=== PATIENT | female | born 2000 | race Caucasian/White ===

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

== ENCOUNTER 2021-12-16 12:15 | Emergency (ER) | payer OTHER, BC, SELFPAY ==
[2021-12-16 12:15] VITALS: BP 120/89; PULSE 139; RESP 16; TEMP 36.8; O2SAT 97; BMI 26.5
--- NOTE | 2021-12-16 12:29 | CT_ITS ---
STUDY: CT ABDOMEN AND PELVIS WITH CONTRAST REASON FOR EXAM: Female, 21 years old. Abdominal pain and diarrhea x 5 days. History of ulcerative colitis RADIATION DOSAGE (If Supplied By Facility): CTDIvol = ( 16.19 ) mGy, DLP = ( 642.62 ) mGycm TECHNIQUE: Transaxial images were obtained from the dome of the diaphragm to the symphysis pubis without oral contrast. IV 100mL Isovue-370 was administered. Sagittal and coronal images were reconstructed. Individualized dose optimization techniques were used for this CT. COMPARISON: None. FINDINGS: The visualized lung bases are unremarkable. The visualized portions of the heart are within normal limits. Normal liver. Normal gallbladder and extrahepatic biliary system. Normal spleen. Normal pancreas. Normal bilateral adrenal glands. There is a suggestion of punctate stone right kidney without hydronephrosis. Image #48 axial views. Normal left kidney. Normal visualized stomach. There are distended loops of proximal small bowel. There is a fluid distended thick-walled appearance of the transverse colon, image 54 with air-fluid levels thickening of the distal transverse colon in a decompressed edematous appearance of the descending colon with a featureless strandy appearance. There are few nonspecific pelvic subcentimeter lymph nodes near the rectum. The appendix is visualized and appears normal. Normal abdominal aorta. Normal inferior vena cava. There few nonspecific subcentimeter reactive lymph nodes. Normal urinary bladder. Normal visualized uterus. Normal abdominal wall. There is a broad disc bulge L4-L5 with minimal neural foramina narrowing. CT/Abdomen/Pelvis W IV Cont ONLY IMPRESSION: Findings are highly suspicious for active colitis, ulcerative colitis, involving the transverse colon in particular with a decompressed ratty, , edematous appearance of the descending colon and rectum. The patient likely has diarrhea. There is mild distention of the proximal small bowel suggesting probable associated mild ileus. There is no visualized abscess formation. Electronically Signed: Sabrina Quintero MD at 14:36 EDT ,
--- NOTE | 2021-12-16 12:29 | RAD_ITS ---
STUDY: X-RAY CHEST REASON FOR EXAM: Female, 21 years old. Shortness of breath TECHNIQUE: Single AP portable view of the chest. COMPARISON: April 10, 2019 chest x-ray FINDINGS: The lungs are clear and expanded. There is no demonstrated pleural abnormality. Normal size heart. Normal mediastinum and jamila. Normal visualized pulmonary arteries. Normal visualized aortic arch and descending thoracic aorta. Normal visualized thoracic spine. Normal visualized ribs, clavicles, and shoulders. There is no demonstrated abnormality of the visualized soft tissue structures of the upper abdomen. RAD/Chest 1 View (Portable) IMPRESSION: Normal x-ray examination of the chest. Electronically Signed: Sabrina Quintero MD at 13:43 EDT ,
--- NOTE | 2021-12-16 12:31 | EDS_ITS ---
HPI <JESUS Lanier - Last Filed: 12/16/21 14:55> History of Present Illness Chief Complaint: Abd Pain Narrative Narrative: 21-year-old female with history of ulcerative colitis on Humira presents to the emergency department with 6 days of generalized abdominal bloating, abdominal pain. She states that over the last 2 to 3 days she has been having multiple loose stools, close to 1 time per hour. Patient states there is no blood in the stool however blood when she wipes. Patient has not had a CAT scan since 2019. She does follow-up with a rn urology. She also states over the last 48 hours she is feeling more short of breath. Patient states that when she is standing, she feels like she cannot get a big breath. She denies any chest pain, denies any fevers or chills. Denies any cough. Denies any sick contacts. [facility] <JESUS Lanier - Last Filed: 12/16/21 14:55> [facility] Medical History (Updated 12/16/21 @ 14:53 by JESUS Lanier) Ulcerative colitis Home Medications adalimumab 40 mg/0.4 mL subcutaneous pen kit (Humira(CF) Pen) See Rx Instructions .Route .COMPLEX 12/16/21 [History Last Taken Unknown] ergocalciferol (vitamin D2) 1,250 mcg (50,000 unit) capsule 50,000 unit PO QWEEK 12/16/21 [History Last Taken Unknown] ferrous sulfate 325 mg (65 mg iron) tablet 325 mg PO X1 12/16/21 [History Last Taken Unknown] prednisone 50 mg tablet 50 mg PO DAILY #6 tabs 12/16/21 [Rx Last Taken Unknown] Allergy/AdvReac Type Severity Reaction Status Date / Time No Known Allergies Allergy Verified 12/16/21 12:18 Social History Smoking Status: Never smoker ROS <JESUS Lanier - Last Filed: 12/16/21 14:55> ROS ED ROS Narrative Constitutional: Negative for fever, chills, weight loss, weakness Eyes: Negative for vision loss, vision change, double vision ENT: Negative for any sore throat, ear pain, congestion Cardiovascular: Negative for any chest pain, tightness, palpitations Respiratory: Negative for any cough, sputum production, hemoptysis, dyspnea, dyspnea on exertion, orthopnea Gastrointestinal: Negative for any nausea, vomiting, constipation, blood in stool, blood in vomit. Patient complains of abdominal bloating, diarrhea : Negative for any urinary frequency, dysuria, retention, blood in urine Muscle skeletal: Negative for any muscle joint pain, stiffness, myalgias, arthralgias, neck pain, back pain Neurological: Negative for any headache, syncope, numbness or tingling, dizziness Skin: Negative for any rashes, lumps, itching, abrasions, lacerations Psychiatric: Negative for any depression, anxiety, stress, suicidal ideation, homicidal ideation Hematologic: Negative for any easy bruising, excessive bruising, easy bleeding Allergies: Negative for any eczema, hives, rash EXAM <JESUS Lanier - Last Filed: 12/16/21 14:55> Physical Exam Narrative Exam Narrative: Vital signs reviewed. HEET: Head normocephalic atraumatic, TMs clear bilaterally. Posterior pharynx is clear, moist mucous membranes. Nares clear bilaterally. Neck: Supple with no lymphadenopathy or tenderness. No signs of meningismus, negative jolt sign. Cardiac: Tachycardic rate no murmurs gallops or rubs, equal peripheral pulses bilaterally. Respiratory: Lungs clear to auscultation bilaterally. No chest tenderness. Abdomen: Soft, nondistended. No abdominal bruit or pulsatile masses. No hepatosplenomegaly. Patient has generalized tenderness, no specific area was worse. Patient states have bloating to her lower abdomen. Active bowel sounds in all quadrants. Extremities: No peripheral edema, no signs of gross trauma or deformity. Active full range of motion of all extremities. Neuro: Cranial nerves II through XII intact, no focal neurological deficits. Skin: Clean dry and intact with no rash, purpura, petechiae, vesicles or pustules. Backs/flank: No CVA tenderness, no midline spinal tenderness, no deformity. Psych: Normal mood and affect. No SI, HI or acute psychosis. Const Vital Signs: 12/16/21 12:15 12/16/21 12:24 12/16/21 14:39 Temperature 98.2 F Temperature Source Temporal Pulse Rate 139 H 83 Respiratory Rate 16 Respiratory Effort Normal Non-Labored Respiratory Depth Normal Respiratory Pattern Normal Blood Pressure 120/89 H 102/70 Blood Pressure Mean 99 80 Pulse Ox 97 96 Oxygen Delivery Method Room Air Room Air Positive well nourished and well developed General Appearance ED: well developed <Dr. Genna Acevedo MD - Last Filed: 12/16/21 14:59> Physical Exam Const Vital Signs: 12/16/21 12:15 12/16/21 12:24 12/16/21 14:39 Temperature 98.2 F Temperature Source Temporal Pulse Rate 139 H 83 Respiratory Rate 16 Respiratory Effort Normal Non-Labored Respiratory Depth Normal Respiratory Pattern Normal Blood Pressure 120/89 H 102/70 Blood Pressure Mean 99 80 Pulse Ox 97 96 Oxygen Delivery Method Room Air Room Air MDM <JESUS Lanier - Last Filed: 12/16/21 14:55> MDM Lab Data Labs: Laboratory Results - last 24 hr 12/16/21 12/16/21 12/16/21 12:35 12:35 13:40 WBC 14.2 H RBC 4.48 Hgb 13.2 Hct 39.3 MCV 87.7 MCH 29.5 MCHC 33.6 RDW Std Deviation 39.0 RDW Coeff of Neville 12.0 Plt Count 350 MPV 9.4 Immature Gran % (Auto) 0.500 Neut % (Auto) 79.7 H Lymph % (Auto) 12.1 L [place] % (Auto) 6.5 Eos % (Auto) 0.7 Baso % (Auto) 0.5 Absolute Neuts (auto) 11.3 H Absolute Lymphs (auto) 1.71 Nucleated RBC % 0 Sodium 138 Potassium 3.2 L Chloride 102 Carbon Dioxide 29.0 Anion Gap 7 BUN 5 L Creatinine 0.65 Estim Creat Clear Calc 109.19 Est GFR (MDRD) Af Amer 149 Est GFR (MDRD) Non-Af 123 BUN/Creatinine Ratio 7.7 L Glucose 110 H Calcium 9.0 Total Bilirubin 0.40 AST 11 L ALT 11 L Alkaline Phosphatase 141 H Total Protein 7.9 Albumin 3.3 Globulin 4.6 H Albumin/Globulin Ratio 0.7 L Lipase 32 L Urine Color Yellow Urine Clarity Clear Urine pH 7.0 Ur Specific [place] 1.005 Urine Protein Negative Urine Glucose (UA) Normal Urine Ketones Negative Urine Occult Blood Negative Urine Nitrite Negative Urine Bilirubin Negative Urine Urobilinogen Normal Ur Leukocyte Esterase Negative Urine RBC 0 SEEN Urine WBC 0 SEEN Ur Squamous Epith Cells 0 SEEN Urine Bacteria 0 SEEN Urine Mucus 0 SEEN Urine Test Negative Radiography Diagnostic Testing: Clinical Impression(s) from Imaging Studies Abdomen/Pelvis CT 12/16/21 12:29 IMPRESSION: Findings are highly suspicious for active colitis, ulcerative colitis, involving the transverse colon in particular with a decompressed ratty, , edematous appearance of the descending colon and rectum. The patient likely has diarrhea. There is mild distention of the proximal small bowel suggesting probable associated mild ileus. There is no visualized abscess formation. Electronically Signed: Sabrina Quintero MD at 14:36 EDT , Chest X-Ray 12/16/21 12:29 IMPRESSION: Normal x-ray examination of the chest. Electronically Signed: Sabrina Quintero MD at 13:43 EDT , Treatment and Re-Evaluation Narrative: Patient appears well, patient appears nontoxic, vital signs are stable. Patient presents to the emergency department with 6 days of generalized abdominal bloating, diarrhea. Patient does have history of ulcerative colitis, patient was given a full abdominal work-up, she did have a complaint of being intermittently short of breath, chest x-ray was also completed. Patient's laboratory studies show a leukocytosis white blood count of 14.2, patient's chemistries show slight hypokalemia sodium of 3.2. Kidney function within normal limits. Patient's COVID-19, influenza rapid test were negative. Patient's urinalysis was negative for infection patient is not . Patient did receive a chest x-ray concerning for the shortness of breath rule out any pneumonia. Patient's chest x-ray interpreted by ER physician shows normal examination of the chest. Patient did receive a CT scan of the abdomen and pelvis rule out any obstruction, abscess, inflammatory disease. Patient's x-ray shows of the findings are highly suspicious for active colitis/ulcerative colitis involving the transverse colon particular with a decompressed ratty edematous appearance of the descending colon and rectum. The patient likely has diarrhea. There is mild distention of the proximal small bowel suggesting probable associated mild ileus. There is no visualized abscess formation. I did speak with the patient, patient will be given Solu-Medrol IV here, she was placed on 6 days of 50 mg prednisone. She will follow-up closely with her UC doctor. Patient is happy with the plan of care. Patient does not look nontoxic. She does not look dehydrated. Patient will follow outpatient. Patient struck to return for any worsening symptoms. Patient stable for discharge. <Dr. Genna Acevedo MD - Last Filed: 12/16/21 14:59> [facility] MDM Narrative Medical decision making narrative: I have personally performed a face to face assessment of the patient and have reviewed the ALEXEI Note. I performed a substantive portion of the visit including all aspects of the following. My monzon findings include: History is 21-year-old female with history of ulcerative colitis presenting with mild diffuse abdominal pain and diarrhea. Denies blood in her stool. Denies vomiting. Denies fever. Exam vitals are stable. Initially tachycardic. This improved with IV fluids. Lungs are clear and equal. Abdomen is soft with very mild diffuse tenderness, no rebound or guarding. Medical Decision Making: Patient was given IV fluids, labs obtained. CT abdomen pelvis obtained. patient is feeling improved on reevaluation. She will follow- up with her GI physician. Advised return to the ED for worsening complaints. Other additions or changes: None Lab Data Attestation: I reviewed the patient's lab results. Labs: Laboratory Results - last 24 hr 12/16/21 12/16/21 12/16/21 12:35 12:35 13:40 WBC 14.2 H RBC 4.48 Hgb 13.2 Hct 39.3 MCV 87.7 MCH 29.5 MCHC 33.6 RDW Std Deviation 39.0 RDW Coeff of [place]ille 12.0 Plt Count 350 MPV 9.4 Immature Gran % (Auto) 0.500 Neut % (Auto) 79.7 H Lymph % (Auto) 12.1 L [place] % (Auto) 6.5 Eos % (Auto) 0.7 Baso % (Auto) 0.5 Absolute Neuts (auto) 11.3 H Absolute Lymphs (auto) 1.71 Nucleated RBC % 0 Sodium 138 Potassium 3.2 L Chloride 102 Carbon Dioxide 29.0 Anion Gap 7 BUN 5 L Creatinine 0.65 Estim Creat Clear Calc 109.19 Est GFR (MDRD) Af Amer 149 Est GFR (MDRD) Non-Af 123 BUN/Creatinine Ratio 7.7 L Glucose 110 H Calcium 9.0 Total Bilirubin 0.40 AST 11 L ALT 11 L Alkaline Phosphatase 141 H Total Protein 7.9 Albumin 3.3 Globulin 4.6 H Albumin/Globulin Ratio 0.7 L Lipase 32 L Urine Color Yellow Urine Clarity Clear Urine pH 7.0 Ur Specific [place] 1.005 Urine Protein Negative Urine Glucose (UA) Normal Urine Ketones Negative Urine Occult Blood Negative Urine Nitrite Negative Urine Bilirubin Negative Urine Urobilinogen Normal Ur Leukocyte Esterase Negative Urine RBC 0 SEEN Urine WBC 0 SEEN Ur Squamous Epith Cells 0 SEEN Urine Bacteria 0 SEEN Urine Mucus 0 SEEN Urine Test Negative Radiography Chest X-Ray - ED: 1 View, Read by ED Physician, Read by Radiologist and No Acute Disease Diagnostic Testing: Clinical Impression(s) from Imaging Studies Abdomen/Pelvis CT 12/16/21 12:29 IMPRESSION: Findings are highly suspicious for active colitis, ulcerative colitis, involving the transverse colon in particular with a decompressed ratty, , edematous appearance of the descending colon and rectum. The patient likely has diarrhea. There is mild distention of the proximal small bowel suggesting probable associated mild ileus. There is no visualized abscess formation. Electronically Signed: Sabrina Quintero MD at 14:36 EDT , Chest X-Ray 12/16/21 12:29 IMPRESSION: Normal x-ray examination of the chest. Electronically Signed: Sabrina Quintero MD at 13:43 EDT , Discharge Plan Triage Chief Complaint: Abd Pain ED Midlevel Provider: Syed Mendez ED Provider: Genna Acevedo Dx/Rx/DC Orders Clinical Impression: Ulcerative colitis, Diarrhea, Dyspnea Instructions: Treating Diarrhea, ED Ulcerative Colitis Prescriptions: New prednisone 50 mg tablet 50 mg PO DAILY Qty: 6 0RF No Action ferrous sulfate 325 mg (65 mg iron) tablet 325 mg PO X1 Label Comments: TAKE 1 TABLET BY MOUTH EVERY DAY WITH BREAKFAST Rx Instructions: PT STATES SHE TAKES IT WHENEVER SHE FEELS LIGHTHEADED-USUALLY <1X/WEEK ergocalciferol (vitamin D2) 1,250 mcg (50,000 unit) capsule 50,000 unit PO QWEEK Label Comments: TAKE 1 CAPSULE BY MOUTH ONE TIME A WEEK. Humira(CF) Pen 40 mg/0.4 mL pen injector kit See Rx Instructions .ROUTE .COMPLEX Rx Instructions: 40 mg subcutaneously QOWEEK ON FRIDAYS Primary Care Provider: Jodie Johnson Referrals: Hugo Berrios DO [Non-Staff] - Activity Restrictions/Additional Instructions: Please ensure you follow-up with your doctor this upcoming week. Disposition Disposition: Home, Self Care
[2021-12-16] MEDS: 0.9% Normal Saline 1,000 ML 1000 ML IV (12:40)
[2021-12-16] MEDS: Ondansetron 4 MG/2 ML Vial IV (12:40)
[2021-12-16] MEDS: Morphine 4 MG/ML Syringe IV (12:40)
[2021-12-16 12:41] LABS: Absolute Lymphocyte Count 1.71 X10^3/uL (0.83-4.51); Absolute Neutrophil Count 11.3 X10^3/uL (2.0-7.7); Basophil# 0.07 X10^3/uL; Basophil% 0.5 % (0-1); Eosinophils% 0.7 % (0-5); Hematocrit 39.3 % (37-47); Hemoglobin 13.2 g/dL (12.0-15.0); Lymphocyte # 1.71 X10^3/ul (0.83-4.51); Lymphocyte % 12.1 % (19-41); Mean Corp Hgb Conc 33.6 g/dL (32-36); Mean Corpuscular Hgb 29.5 pg (27.0-32.0); Mean Corpuscular Volume 87.7 fL (81-99); Mean Platelet Vol. 9.4 fl (6.2-12.0); Monocyte# 0.92 X10^3/uL; Monocyte% 6.5 % (0-10); NRBC Flagged by Analyzer 0 % (0-5); Neutrophil # 11.31 X10^3/uL (2.7-7.7); Neutrophil % 79.7 % (47-70); Platelet Count 350 K/mm3 (150-450); Red Blood Count 4.48 M/mm3 (4.2-5.4); White Blood Count 14.2 K/mm3 (4.4-11.0)
[2021-12-16 12:58] LABS: ALB/GLOB Ratio 0.7 RATIO (0.9-2.4); AST(SGOT) 11 U/L (15-37); Alanine Aminotransfer ALT/SGPT 11 U/L (13-56); Albumin, Serum 3.3 g/dL (3.2-5.0); Alkaline Phosphatase 141 U/L (45-117); Anion Gap 7 (5-15); BUN 5 mg/dL (7-18); BUN/Creat Ratio 7.7 RATIO (10-20); Chloride 102 mmol/L (98-107); Creatinine, Serum 0.65 mg/dL (0.55-1.02); EST Glomerular Filtration Rate 123 mL/min (>60); Est Glom Filt Rate - Afr Amer 149 mL/min (>60); Estimated Creatinine Clearance 109.19 ml/min; Globulin 4.6 g/dL (2.2-4.2); Glucose 110 mg/dL (74-106); Lipase 32 U/L (73-393); Potassium 3.2 mmol/L (3.5-5.1); Protein, Total 7.9 g/dL (6.4-8.2); Sodium Level 138 mmol/L (136-145)
[2021-12-16 13:47] LABS: Bacteria 0 SEEN /hpf (None Seen); Mucous, Urine 0 SEEN /hpf (<or=2+); Red Blood Cells-Urine 0 SEEN /hpf (0-5); Squamous Epithelial Cells - UA 0 SEEN /hpf (5-10); White Blood Cells 0 SEEN /hpf (0-5)
[2021-12-16 13:49] LABS: Color, Urine Yellow (Yellow); Glucose, Dipstick Normal (Normal); Ketone-Dipstick Negative (Negative); Leukocyte Esterase-Dipstick Negative /ul (Negative); Nitrite-Dipstick Negative (Negative); Occult Blood-Urine Negative /ul (Negative); Protein-Dipstick Negative (Negative); Specific Gravity, Urine 1.005 (1.002-1.030); Urine Bilirubin Dipstick Negative (Negative); Urine Clarity Clear (Clear); Urine Urobilinogen Normal (Normal)
[2021-12-16 13:55] LABS: Internal QC Validated? YES +Cl - CLEAR BKGD; Pregnancy, Urine Negative Negative
[2021-12-16 14:39] VITALS: BP 102/70; PULSE 83; O2SAT 96
[2021-12-16] MEDS: MethylPREDNISolone 125 MG/2 ML Vial IV (14:49)
== END 2021-12-16 14:58 | disposition home or self-care (01) ==
PROVIDERS: Nurse Practitioner; Emergency Provider Emergency Medicine; PCP Internal Medicine; Visit Provider Emergency Medicine
DX: K51.90 Ulcerative colitis, unspecified, without complications (principal); R06.02 Shortness of breath
CPT/HCPCS: 71045; 74177; 80053; 81001; 81025; 83690; 85025; 87428; 96361; 96374; 96375; 99284; J7030; Q9967; A4216; J2405

== ENCOUNTER 2022-10-14 11:04 | Emergency (ER) | payer BC, MEDICAID, SELFPAY ==
[2022-10-14 11:05] VITALS: BP 122/80; PULSE 124; RESP 18; TEMP 36.4; O2SAT 100; BMI 25.2
--- NOTE | 2022-10-14 11:12 | EKG12_ITS ---
Test Reason : Blood Pressure : / mmHG Vent. Rate : 119 BPM Atrial Rate : 119 BPM P-R Int : 096 ms QRS Dur : 080 ms QT Int : 320 ms P-R-T Axes : 085 063 -48 degrees QTc Int : 450 ms Sinus tachycardia with short IL ST & T wave abnormality, consider inferior ischemia Abnormal ECG Confirmed by MARICARMEN BANGURA, CURTIS ([id number]), film editor JOSE L MUNOZ ([id number]) on 10/15/2022 9:39:48 AM Referred By: TRI Confirmed By:CURTIS HERNADEZ MD
--- NOTE | 2022-10-14 11:12 | RAD_ITS ---
STUDY: X-RAY CHEST REASON FOR EXAM: Female, 22 years old. Midsternal chest tightness, 17 weeks gestation . The patient was shielded appropriately. TECHNIQUE: PA and lateral views of the chest. COMPARISON: Comparison is made with prior study dated December 16, 2021. FINDINGS: The lungs are clear and expanded. There is no demonstrated pleural abnormality. Normal size heart. Normal mediastinum and jamila. Normal visualized pulmonary arteries. Normal visualized aortic arch and descending thoracic aorta. There is a mild dextroscoliosis of the thoracic spine. Normal visualized ribs, clavicles, and shoulders. There is no demonstrated abnormality of the visualized soft tissue structures of the upper abdomen. RAD/Chest PA and Lateral IMPRESSION: Normal x-ray examination of the chest. Electronically Signed: Gustabo Gray MD at 11:59 EDT ,
--- NOTE | 2022-10-14 11:14 | ED.VIS.CHEST ---
HPI History of Present Illness Chief Complaint: Chest Pain Detail of Chief Complaint: Midsternal chest tightness that started Friday Informant: patient Onset/Context/Timing Onset: Days (Friday, October 12) Activity at onset: sudden Timing: Continuous Quality: Positive for Tightness Location: Substernal Current Severity: Mild Maximum Severity: Moderate Worsened By: - (Walking); Not Worsened By Movement of Arm, Movement of Torso, Palpation, Breathing or Coughing Relieved By: Nothing Associated Symptoms: Positive for Dyspnea, Cough (Started today) and Palpitations; Negative for Nausea, Vomiting, Diaphoresis, Fever, Lightheadedness or Acid Reflux Narrative Narrative: Patient is a 22-year-old female who is 17 weeks gestation and presents with midsternal chest tightness without radiation. She does report mild shortness of breath. She states her pain resolves when she is supine. If she is up and about the pain is present. She denies history of PE or DVT. She denies leg pain, swelling or discoloration. There is a family history of PE, maternal grandfather. She denies fever, chills night sweats. She denies rhinorrhea, congestion postnasal drainage. She does endorse sore throat and cough which started today. She denies abdominal pain. She denies GI symptoms. She denies urologic symptoms other than frequency. Prior Similar Symptoms: Yes (Pleurisy) CVD Risk Factors: Negative for Hypertension, Diabetes, Hypercholesterolemia, Family History 1' </=55 or Smoking PE Risk Factors: Negative for Recent Travel/Surgery, Recent Immobilization, Prior DVT or PE, Cancer or OCP + Smoking + >/=35 TAD Risk Factors: Negative for Marfan's Syndrome, Hypertension or Family History [facility] Medical History Ulcerative colitis Home Medications ergocalciferol (vitamin D2) 1,250 mcg (50,000 unit) capsule 50,000 unit PO QWEEK 12/16/21 [History Last Taken Unknown] ferrous sulfate 325 mg (65 mg iron) tablet 325 mg PO X1 12/16/21 [History Last Taken Unknown] Allergy/AdvReac Type Severity Reaction Status Date / Time No Known Allergies Allergy Verified 10/14/22 11:07 Social History (Updated 10/14/22 @ 11:[address] Rafael Hudson MD) Smoking Status: Never smoker substance use type: does not use ROS ROS ED Constitutional Constitutional ED: Denies chills, fever(s), subjective, sweats or weight loss Eyes Eyes: Reports none; Denies blurry vision or change in vision ENT ENT ED: Reports sore throat; Denies ear pain or rhinorrhea Cardiovascular Cardiovascular: Reports as per HPI; Denies orthopnea or paroxysmal nocturnal dyspnea Respiratory/Chest Respiratory/Chest: Reports cough; Denies dyspnea, dyspnea on exertion, orthopnea, paroxysmal nocturnal dyspnea or sputum Gastrointestinal Gastrointestinal: Denies abdominal pain, melena, nausea or vomiting Genitourinary Genitourinary ED: Reports urinary frequency; Denies dysuria or hematuria Musculoskeletal Musculoskeletal: Denies arthralgias, back pain, myalgias or neck pain Integumentary Denies abscess, Abrasions or rash Neurologic Neurologic: Denies headache(s), paresthesias or weakness Hematologic/Lymphatic Hematologic/Lymphatic: Denies easy bleeding or easy bruising EXAM Physical Exam Const Vital Signs: 10/14/22 11:05 10/14/22 11:25 10/14/22 11:25 Temperature 97.6 F L Temperature Source Temporal Pulse Rate 124 H 107 H Respiratory Rate 18 Respiratory Effort Normal Non-Labored Blood Pressure 122/80 H Blood Pressure Mean 94 Pulse Ox 100 Oxygen Delivery Method Room Air 10/14/22 14:11 Temperature 99.4 F H Temperature Source Oral Pulse Rate Respiratory Rate Respiratory Effort Blood Pressure Blood Pressure Mean Pulse Ox Oxygen Delivery Method Positive well nourished and well developed General Appearance ED: well developed and NAD; Negative for pallor HEENT Reports TM's clear and moist mucous membranes normocephalic Tympanic Membrane ED: Yes TM's clear Eyes PERRL and EOMs intact bilaterally General Eye ED: Negative for pale conjunctiva or scleral icterus Neck no lymphadenopathy, supple and no JVD Neck Narrative: Trachea is midline. There is no inspiratory stridor. Resp normal respiratory effort and clear to auscultation bilaterally Cardio regular rhythm, S1 normal heart sound, S2 normal heart sound and no murmurs Rate: tachycardic Peripheral Pulses: pulses 2+ throughout GI normal to inspection, nondistended, normoactive bowel sounds, soft to palpation, non-tender and non-distended; Negative for hepatosplenomegaly GI Narrative: Fundal height is 3 fingerbreadths below the umbilicus. Back/Spine no CVA tenderness and no thoracic nor lumbar tenderness Extremity normal to inspection Extremity Narrative: There is no asymmetry, swelling, discoloration, leg vein distention, palpable cords or tenderness along the distribution of the deep venous system. Neuro oriented x3, CN's II-XII intact bilaterally, no sensory deficits noted and gait normal Sensorium / Orientation: awake and alert Motor Exam: strength 5/5 throughout Psych mental status grossly normal Skin no rashes or lesions noted and no wounds General Skin Exam: Negative for jaundice or pallor MDM MDM MDM Narrative Medical decision making narrative: Patient is not PERC negative. Since patient is not PERC negative will obtain D-dimer. EKG was obtained since patient has a rapid regular heart rate to assess for dysrhythmia. With patient now complaint of sore throat and cough this may represent respiratory infection as well. Also need to consider myocarditis, pericarditis. Patient's work-up included EKG to assess rhythm, chest x-ray and appropriate blood work. Lab Data Attestation: I reviewed the patient's lab results. Lab results narrative: CBC is unremarkable. And within normal limits for a woman who is second trimester . Troponin is less than 3. This is with days of symptoms. Basic metabolic panel is marked for potassium 3.2 otherwise unremarkable. Labs: Laboratory Results - last 24 hr 10/14/22 11:25 WBC 8.9 RBC 3.82 L Hgb 12.0 Hct 34.6 L MCV 90.6 MCH 31.4 MCHC 34.7 RDW Std Deviation 43.2 RDW Coeff of Neville 13.2 Plt Count 283 MPV 9.1 Immature Gran % (Auto) 0.400 Neut % (Auto) 83.4 H Lymph % (Auto) 10.3 L Beckham % (Auto) 5.6 Eos % (Auto) 0.1 Baso % (Auto) 0.2 Absolute Neuts (auto) 7.4 Absolute Lymphs (auto) 0.92 Nucleated RBC % 0 D-Dimer Quant (PE/DVT) 1.02 H* Sodium 136 Potassium 3.2 L Chloride 105 Carbon Dioxide 25.0 Anion Gap 6 BUN 2 L Creatinine 0.44 L Estim Creat Clear Calc 159.96 Est GFR (MDRD) Af Amer 233 Est GFR (MDRD) Non-Af 192 BUN/Creatinine Ratio 4.6 L Glucose 109 H Calcium 8.9 Troponin I High Sens < 3 L D-dimer is elevated. With elevated D-dimer, tachycardia, dyspnea and normal chest x-ray will obtain CTA to assess for pulmonary embolus. Radiography Chest X-Ray - ED: 2 View and Read by ED Physician (2 view chest x-ray supine reviewed interpreted by me at 1144 is negative. Cardiac silhouette and size normal. Perihilar region normal. Lung parenchyma normal. Osseous structures are unremarkable.) Diagnostic Testing: Clinical Impression(s) from Imaging Studies Chest X-Ray 10/14/22 11:12 IMPRESSION: Normal x-ray examination of the chest. Electronically Signed: Gustabo Gray MD at 11:59 EDT , Chest CTA 10/14/22 11:51 IMPRESSION: Normal CTA chest examination, without a demonstrated pulmonary embolism or arterial dissection. Electronically Signed: Gustabo Gray MD at 12:37 EDT , Echocardiogram 10/14/22 14:07 Interpretation Summary Normal LV size. Left ventricular systolic function is normal. The estimated ejection fraction is 55 %. Structurally normal valves. Ordering Physician: Rafael Hudson Referring Physician: BRITNEY KAY Performed By: Gaye Gurrola RCS Rhythm Strip Rhythm Strip: Sinus Tach Rate: 120 Ectopy: None EKG Initial EKG: Attestation: I personally reviewed and interpreted this EKG as follows: Interpretation: Sinus Tachycardia (Rate is 119. VA interval is 96 ms. QRS duration 80 ms. QT durations 120 ms. [place] is normal. There are ST-T wave abnormalities noted in the inferior leads. Per review of old record patient had a normal EKG June 2019. [place] was asked to obtain old EKG.) Management Discussion w/another healthcare provider: Conduit Bender (Discussed case with Dr. Perera. Recommendation is echo in the emergency department. This was ordered.) Discharge Plan Triage Chief Complaint: Chest Pain ED Provider: Rafael Hudson Dx/Rx/DC Orders Clinical Impression: Acute dyspnea, Sinus tachycardia, Chest pain Instructions: ED About Arrhythmias, ED Chest Pain, Uncertain Cause, ED Dyspnea Prescriptions: No Action ferrous sulfate 325 mg (65 mg iron) tablet 325 mg PO X1 Patient Comments: TAKE 1 TABLET BY MOUTH EVERY DAY WITH BREAKFAST Rx Instructions: PT STATES SHE TAKES IT WHENEVER SHE FEELS LIGHTHEADED-USUALLY <1X/WEEK ergocalciferol (vitamin D2) 1,250 mcg (50,000 unit) capsule 50,000 unit PO QWEEK Patient Comments: TAKE 1 CAPSULE BY MOUTH ONE TIME A WEEK. Primary Care Provider: Britney Kay Referrals: Britney Kay MD [Primary Care Provider] - Donavon Odell MD [Med Staff - Active Staff] - 5-7 Days Disposition Disposition: Home, Self Care
[2022-10-14 11:25] VITALS: PULSE 107
[2022-10-14 11:28] LABS: Absolute Lymphocyte Count 0.92 X10^3/uL (0.83-4.51); Absolute Neutrophil Count 7.4 X10^3/uL (2.0-7.7); Basophil# 0.02 X10^3/uL; Basophil% 0.2 % (0-1); Eosinophil# 0.01 X10^3/uL; Eosinophils% 0.1 % (0-5); Hematocrit 34.6 % (37-47); Lymphocyte # 0.92 X10^3/ul (0.83-4.51); Lymphocyte % 10.3 % (19-41); Mean Corp Hgb Conc 34.7 g/dL (32-36); Mean Corpuscular Hgb 31.4 pg (27.0-32.0); Mean Corpuscular Volume 90.6 fL (81-99); Mean Platelet Vol. 9.1 fl (6.2-12.0); Monocyte% 5.6 % (0-10); NRBC Flagged by Analyzer 0 % (0-5); Neutrophil % 83.4 % (47-70); Platelet Count 283 K/mm3 (150-450); RBC Distribution Width CV 13.2 % (11.6-14.6); RBC Distribution Width SD 43.2 fl (35.1-43.9); Red Blood Count 3.82 M/mm3 (4.2-5.4); White Blood Count 8.9 K/mm3 (4.4-11.0)
[2022-10-14 11:46] LABS: D-Dimer Quantitative (DVT/PE) 1.02 FEU/ug/m (0.27-0.49)
--- NOTE | 2022-10-14 11:51 | CT_ITS ---
STUDY: CTA CHEST REASON FOR EXAM: Female, 22 years old. Pain, dyspnea, sinus tach, elevated D-dimer -- Second trimester . The patient is shielded appropriately. RADIATION DOSAGE (If Supplied By Facility): CTDIvol = ( 9.63 ) mGy, DLP = ( 253.61 ) mGycm TECHNIQUE: The examination was performed with the intravenous administration of IV 100mL Isovue-370. Post-processing of the angiographic images was performed, with multiplanar reformation and 3D reconstruction. Individualized dose optimization techniques were used for this CT. COMPARISON: Comparison is made with prior chest radiograph done earlier in the day. FINDINGS: Normal enhancement of the main pulmonary artery and right and left pulmonary arteries. Normal enhancement of the bilateral peripheral pulmonary arteries. There is no demonstrated pulmonary embolism. Normal thoracic aorta and visualized great vessels. There is no demonstrated aortic dissection. Normal heart and pericardium. Normal mediastinum. Normal hilar regions. Normal visualized trachea and bronchi. The lungs are well expanded. Normal pulmonary parenchyma. Normal pleura. Normal chest wall structures. Normal osseous structures. Normal visualized upper abdomen. CT/CTA Chest W/WO Contrast IMPRESSION: Normal CTA chest examination, without a demonstrated pulmonary embolism or arterial dissection. Electronically Signed: Gustabo Gray MD at 12:37 EDT ,
[2022-10-14 12:01] LABS: Anion Gap 6 (5-15); BUN 2 mg/dL (7-18); BUN/Creat Ratio 4.6 RATIO (10-20); Calcium,Total 8.9 mg/dL (8.5-10.1); Chloride 105 mmol/L (98-107); Creatinine, Serum 0.44 mg/dL (0.55-1.02); EST Glomerular Filtration Rate 192 mL/min (>60); Est Glom Filt Rate - Afr Amer 233 mL/min (>60); Estimated Creatinine Clearance 159.96 ml/min; Glucose 109 mg/dL (74-106); Potassium 3.2 mmol/L (3.5-5.1); Sodium Level 136 mmol/L (136-145); Troponin-I HS < 3 pg/mL (3.0-54.0)
--- NOTE | 2022-10-14 14:07 | ECHOD_ITS ---
Reason For Study: DYSPNEA/SOB Procedure This was a 2D Doppler, Color Flow transthoracic echocardiogram. Exam performed portable in ED. Left Ventricle Normal LV size. Left ventricular systolic function is normal. The estimated ejection fraction is 55 %. No regional wall motion abnormalities noted. Right Ventricle Normal RV size. Normal systolic function. Atria Normal left atrium. Normal right atrium. Mitral Valve Normal mitral valve. Tricuspid Valve Normal tricuspid valve. Aortic Valve Normal aortic valve. Trisinus/trileaflet aortic valve. Pulmonic Valve Normal pulmonic valve. Great Vessels Normal aortic root. The pulmonary artery is normal size. Normal inferior vena cava. Pericardium/Pleural No pericardial effusion. MMode/2D Measurements & Calculations LVIDd: 5.3 cm IVSd: 0.69 cm Ao root diam: 2.1 cm LVIDs: 3.8 cm LVPWd: 0.51 cm FS: 28.5 % LAV(MOD-bp): 25.2 ml LVAd ap4: 27.6 cm2 SV(MOD-sp4): 55.7 ml LAV(MOD-bp) Indexed: 15.4 ml/m2 LVLd ap4: 7.3 cm LAV(MOD-sp2): 25.9 ml EDV(MOD-sp4): 87.4 ml LAV(MOD-sp4): 22.1 ml EDV(sp4-el): 88.3 ml LVAs ap4: 14.3 cm2 LVLs ap4: 5.7 cm ESV(MOD-sp4): 31.7 ml ESV(sp4-el): 30.3 ml EF(MOD-sp4): 63.8 % EF(sp4-el): 65.7 % SV(sp4-el): 58.0 ml LA A4 area: 11.9 cm2 RA A4 area: 9.8 cm2 TAPSE: 2.1 cm Doppler Measurements & Calculations MV E max stan: 70.5 cm/sec Lat Peak E' Stan: 19.2 cm/sec Med Peak E' Stan: 11.8 cm/sec E/E' lat: 3.7 E/E' med: 6.0 MV V2 max: 91.6 cm/sec Ao V2 max: 136.3 cm/sec LV V1 max: 117.7 cm/sec MV max P.4 mmHg Ao max P.4 mmHg LV V1 max P.5 mmHg MV V2 mean: 63.4 cm/sec Ao V2 mean: 91.1 cm/sec LV V1 mean P.7 mmHg MV mean P.8 mmHg Ao mean P.8 mmHg LV V1 mean: 75.5 cm/sec MV V2 VTI: 17.1 cm Ao V2 VTI: 21.5 cm LV V1 VTI: 19.0 cm AV (velocity ratio): 0.88 PA V2 max: 114.0 cm/sec PA V2 mean: 80.1 cm/sec ECHO/Echo Complete Interpretation Summary Normal LV size. Left ventricular systolic function is normal. The estimated ejection fraction is 55 %. Structurally normal valves. Ordering Physician: Rafael Hudson Referring Physician: BRITNEY KAY Performed By: Gaye Gurrola RCS
[2022-10-14 14:11] VITALS: TEMP 37.4
[2022-10-14 15:55] VITALS: BP 145/60; PULSE 56; RESP 20; O2SAT 99
== END 2022-10-14 16:00 | disposition home or self-care (01) ==
PROVIDERS: Emergency Provider Emergency Medicine; PCP Internal Medicine; Visit Provider Emergency Medicine
DX: O99.891 Other specified diseases and conditions complicating pregnancy (principal); R07.9 Chest pain, unspecified; R06.02 Shortness of breath; R00.0 Tachycardia, unspecified; Z3A.17 17 weeks gestation of pregnancy
CPT/HCPCS: 71046; 71275; 80048; 84484; 85025; 85379; 93005; 93306; 99283; Q9967; A4216

== ENCOUNTER 2023-02-24 16:15 | Outpatient (CLI) | payer BC, MEDICAID, SELFPAY ==
[2023-02-24 16:42] VITALS: BMI 30.6
[2023-02-24 16:45] VITALS: TEMP 37.1
[2023-02-24 16:47] VITALS: BP 128/59; PULSE 111; O2SAT 98
--- NOTE | 2023-02-24 17:18 | OB.TRI.NOTE ---
HPI - General General Date of Service: 02/24/23 HPI Narrative CARIN BARNES, is a 22 F @ 36+ weeks who presents c/o contractions. PFSH PFSH Medical History (Updated 02/24/23 @ 17:[address] Deneen Streeter MD) Anxiety and depression Iron deficiency anemia Palpitations Shortness of breath Tachycardia Ulcerative colitis Home Medications ferrous sulfate 325 mg (65 mg iron) tablet 325 mg PO DAILY 10/25/22 [History Last Taken Unknown] vit 122-ferrous fumarate 27 mg iron-folic acid 800 mcg tablet ( Multi) 1 tab PO DAILY 10/25/22 [History Last Taken Unknown] Allergy/AdvReac Type Severity Reaction Status Date / Time No Known Allergies Allergy Verified 02/24/23 16:42 Family History (Updated 10/25/22 @ 11:16 by Carol Ann Fountain) Mother Hypertension Gluten intolerance Father Hypertension Sister Heart murmur Grandmother Heart disease Diabetes Grandfather Hypertension Heart disease Cancer Grandmother Heart disease Hypertension Grandfather Myocardial infarction, Onset Age: 52 Surgical History (Updated 10/25/22 @ 14:53 by Carol Ann Fountain) History of colonoscopy History of esophagogastroduodenoscopy (EGD) Social History (Updated 10/25/22 @ 11:11 by Carol Ann Fountain) Smoking Status: Never smoker alcohol intake: never substance use type: does not use Physical Exam Narrative Per RN- 0.5cm/thick/-3 NST FHR Rate Baby A Baseline: 135 Variability:: Moderate Accelerations:: 15 x 15 Decelerations:: None NST Reactive:: Yes FHR Category:: Category I Uterine Activity:: irregular Assessment & Plan (1) False labor before 37 completed weeks of gestation: PLAN: Plan @ 36.6 weeks gestation- false labor dc home follow up as scheduled
== END 2023-02-24 17:30 | disposition home or self-care (01) ==
LOC: WPOUT 16:22 → WP 16:22
PROVIDERS: PCP Internal Medicine; Referring Provider Obstetrics & Gynecology; Visit Provider Obstetrics & Gynecology
DX: O47.03 False labor before 37 completed weeks of gestation, third trimester (principal); Z3A.36 36 weeks gestation of pregnancy
CPT/HCPCS: 59025; 59050; 99221; G0378

== ENCOUNTER 2023-03-18 04:45 | Inpatient (IN) | payer BC, MEDICAID, SELFPAY ==
[2023-03-18] VITALS (57 sets, daily range): BP systolic 88–135; BP diastolic 52–96; PULSE 68–122; RESP 16; TEMP 36.2–37.3; O2SAT 83–99; BMI 31.5
--- OUTSIDE RECORDS SUMMARY | 2023-03-18 02:42 | XMS RPT_ITS | CCD ---
Author Name Unknown Address [address] [place] [address] Organization [facility] Care Team Providers Care Managed Care Provider Name Role Phone Britney Kay MD Primary Care Provider [phone] MIC, WEIQUAN Referring Unavailable GANTA, BRITNEY Primary Care Unavailable MIC, WEIQUAN Attending Unavailable GANTA, BRITNEY Primary Care Unavailable MIC, WEIQUAN Referring Unavailable GANTA, BRITNEY Primary Care Unavailable MIC, WEIQUAN Referring Unavailable MIC, WEIQUAN Referring Unavailable GANTA, BRITNEY Primary Care Unavailable MIC, WEIQUAN Attending Unavailable GANTA, BRITNEY Primary Care Unavailable MIC, WEIQUAN Attending Unavailable GANTA, BRITNEY Primary Care Unavailable MIC, WEIQUAN Attending Unavailable MIC, WEIQUAN Referring Unavailable GANTA, BRITNEY Primary Care Unavailable MIC, WEIQUAN Referring Unavailable GANTA, BRITNEY Primary Care Unavailable Britney Kay MD Primary Care Provider [phone] GANTA, BRITNEY Primary Care Unavailable SCOTTY, KARMON Referring Unavailable EM SAMPSON Attending Unavailable KALGIANA SANDOVAL Referring Unavailable GANTA, BRITNEY Primary Care Unavailable GANTA, BRITNEY Primary Care Unavailable EM SAMPSON Attending Unavailable GANTA, BRITNEY Primary Care Unavailable MIC, WEIQUAN Referring Unavailable GANTA, BRITNEY Primary Care Unavailable WISLUZ MARINA AYANNA Referring Unavailable GANTA, BRITNEY Primary Care Unavailable SCOTTY, KARMON Referring Unavailable GANTA, BRITNEY Primary Care Unavailable JUDY BARRON Attending Unavailable SCOTTY, KARMON Referring Unavailable GANTA, BRITNEY Primary Care Unavailable SCOTTY, KARMON Attending Unavailable SCOTTY, KARMON Referring Unavailable GANTA, BRITNEY Primary Care Unavailable SCOTTY, KARMON Referring Unavailable GANTA, BRITNEY Primary Care Unavailable JUDY BARRON Attending Unavailable GANTA, BRITNEY Primary Care Unavailable SCOTTY, KARMON Referring Unavailable SCOTTY, KARMON Referring Unavailable GANTA, BRITNEY Primary Care Unavailable GANTA, BRITNEY Primary Care Unavailable GANTA, BRITNEY Primary Care Unavailable GANTA, BRITNEY Primary Care Unavailable MARJORIE FRIEND Attending Unavailable KALKA, GIANA Referring Unavailable GANTA, BRITNEY Primary Care Unavailable GANTA, BRITNEY Primary Care Unavailable LAUREANO FAJARDO Attending Unavailable SCOTTY, KARMON Referring Unavailable GANTA, BRITNEY Primary Care Unavailable GANTA, BRITNEY Primary Care Unavailable TANIA MARTINEZ Attending Unavailable GANTA, BRITNEY Primary Care Unavailable EM SAMPSON Attending Unavailable GANTA, BRITNEY Primary Care Unavailable WISWELL, AYANNA Referring Unavailable GANTA, BRITNEY Primary Care Unavailable SCOTTY, LAUREANO Attending Unavailable GANTA, BRITNEY Primary Care Unavailable GANTA, BRITNEY Primary Care Unavailable GANTA, BRITNEY Primary Care Unavailable GANTA, BRITNEY Primary Care Unavailable MIC, WEIQUAN Referring Unavailable GANTA, BRITNEY Primary Care Unavailable SCOTTY, LAUREANO Referring Unavailable SCOTTY, KARMON Referring Unavailable GANTA, BRITNEY Primary Care Unavailable LAUREANO FAJARDO Attending Unavailable GANTA, BRITNEY Primary Care Unavailable WISWELL AYANNA Attending Unavailable GANTA, BRITNEY Primary Care Unavailable CORIE PEACOCK Attending Unavailable GANTA, BRITNEY Primary Care Unavailable WISWELL, AYANNA Attending Unavailable GANTA, BRITNEY Primary Care Unavailable CORIE PEACOCK Attending Unavailable JUDY BARRON Attending Unavailable SCOTTY, KARMON Referring Unavailable GANTA, BRITNEY Primary Care Unavailable EDMOND SALEHISTEN Attending Unavailable KALKA, GIANA Referring Unavailable GANTA, BRITNEY Primary Care Unavailable GANTA, BRITNEY Primary Care Unavailable ISABELLA YEBOAH Attending Unavailable GANTA, BRITNEY Primary Care Unavailable MIC, WEIQUAN Referring Unavailable GANTA, BRITNEY Primary Care Unavailable GANTA, BRITNEY Primary Care Unavailable LAUREANO FAJARDO Attending Unavailable GANTA, BRITNEY Primary Care Unavailable EM SAMPSON Attending Unavailable GANTA, BRITNEY Primary Care Unavailable JUDY BARRON Referring Unavailable KALLORI, GIANA Attending Unavailable GANTA, BRITNEY Primary Care Unavailable GANTA, BRITNEY Primary Care Unavailable Medications Current Medications Medication Drug Class(es) Dates Sig (Normalized) Sig (Original) 0.4 ml adalimumab 100 mg/ml auto-injector (20 sources) Tumor Necrosis Factor Jimi Start: 10-11-2022 End: 10-11-2023 inject 40 mg by subcutaneous injection every other week adalimumab 40 mg/0.4 mL subcutaneous pen kit (MARGARITAIRA (CF)) Indications: Ulcerative pancolitis without complication (HCC) Inject 40 mg subcutaneously every 2 weeks. 1 Kit 11 10/11/2022 10/11/2023 Active Completed/Discontinued Medications Medication Drug Class(es) Dates Sig (Normalized) Sig (Original) betamethasone 0.5 mg/ml / clotrimazole 10 mg/ml topical cream (1 source) Azole Antifungal, Corticosteroid Start: 12-03-2022 End: 12-10-2022 clotrimazole-beta methasone (LOTRISONE) cream Apply 1 application to affected area twice daily for 7 days. 15 g 0 12/03/2022 12/10/2022 Problems Active Problems Problem Classification Problem Date Documented Da te Episodic/Chronic Abdominal pain (1 source) Lower abdominal pain; Translations: [Lower abdominal pain, unspecified] Episodic Anxiety disorders (20 sources) Generalized anxiety disorder; Translations: [Generalized anxiety disorder] Onset: 1 06-01-2020 Chronic Deficiency and other anemia (20 sources) Iron deficiency anemia due to blood loss; Translations: [Iron deficiency anemia secondary to blood loss (chronic)] Onset: 1 02-09-2021 Chronic Deficiency and other anemia (2 sources) Iron deficiency anemia secondary to blood loss (chronic); Translations: [Iron deficiency anemia due to chronic blood loss] Onset: 1 Chronic Deficiency and other anemia (1 source) Iron deficiency anemia; Translations: [Other iron deficiency anemias] Episodic Diabetes or abnormal glucose tolerance complicating ; childbirth; or the puerperium (14 sources) Abnormal glucose level; Translations: [Abnormal glucose complicating ] Onset: 3 12-30-2022 Episodic Inflammatory diseases of female pelvic organs (1 source) Bacterial vaginosis; Translations: [Acute vaginitis] 12-27-2022 Episodic Mood disorders (20 sources) Recurrent major depressive episodes, moderate ; Translations: [Major depressive disorder, recurrent, moderate] Onset: 2 Chronic Neoplasms of unspecified nature or uncertain behavior (2 sources) Thrombocytosis; Translations: [Thrombocytosis] Episodic Nonspecific chest pain (2 sources) Chest pain; Translations: [Chest pain, unspecified] 10-14-2022 Episodic Nutritional deficiencies (4 sources) Vitamin D deficiency; Translations: [Vitamin D deficiency, unspecified] Chronic Other complications of (1 source) Anemia during - baby not yet delivered; Translations: [Anemia complicating , unspecified trimester] Chronic Other complications of (1 source) Anemia of ; Translations: [Anemia complicating , third trimester] 01-24-2023 Chronic Other complications of (1 source) Anemia complicating , third trimester; Translations: [Anemia during in third trimester] Onset: 3 Chronic Other female genital disorders (2 sources) Vaginal discharge; Translations: [Other specified noninflammatory disorders of vagina] Episodic Other female genital disorders (1 source) Vaginal discomfort; Translations: [Unspecified condition associated with female genital organs and menstrual cycle] 12-02-2022 Episodic Other female genital disorders (1 source) Pruritus of vagina; Translations: [Other specified noninflammatory disorders of vagina] 12-02-2022 Episodic Other gastrointestinal disorders (1 source) Stool finding; Translations: [Other fecal abnormalities] Episodic Other lower respiratory disease (1 source) Dyspnea; Translations: [Shortness of breath] 10-22-2022 Episodic Other and delivery including normal (9 sources) Normal ; Translations: [Encounter for supervision of normal first , first trimester] Onset: 3 Episodic Other upper respiratory infections (2 sources) Sore throat symptom; Translations: [Acute pharyngitis, unspecified] Episodic Regional enteritis and ulcerative colitis (20 sources) Ulcerative colitis; Translations: [Ulcerative colitis, unspecified, without complications] Onset: 1 02-09-2021 Chronic Residual codes; unclassified (2 sources) Gestation period, 12 weeks; Translations: [12 weeks gestation of ] Episodic Residual codes; unclassified (1 source) Gestation period, 24 weeks; Translations: [24 weeks gestation of ] 11-29-2022 Episodic Residual codes; unclassified (1 source) Gestation period, 28 weeks; Translations: [28 weeks gestation of ] 12-27-2022 Episodic Residual codes; unclassified (2 sources) Gestation period, 32 weeks; Translations: [32 weeks gestation of ] 01-24-2023 Episodic Residual codes; unclassified (1 source) Gestation period, 34 weeks; Translations: [34 weeks gestation of ] 02-07-2023 Episodic Residual codes; unclassified (2 sources) Gestation period, 36 weeks; Translations: [36 weeks gestation of ] 02-21-2023 Episodic Residual codes; unclassified (1 source) 30 weeks gestation of ; Translations: [30 weeks gestation of ] Onset: 3 Episodic Residual codes; unclassified (1 source) 24 weeks gestation of ; Translations: [24 weeks gestation of ] Onset: 3 Episodic Syncope (1 source) Syncope; Translations: [Syncope and collapse] Episodic Unclassified (1 source) 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); 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)] Onset: 3 Past or Other Problems Problem Classification Problem Date Documented Date Episodic/Chronic Cardiac dysrhythmias (4 sources) Palpitations; Translations: [Palpitations] Onset: 10-22-2022 10-22-2022 Episodic Deficiency and other anemia (1 source) Anemia, unspecified; Translations: [Anemia, unspecified type] Onset: 08-29-2022 Episodic Immunizations and screening for infectious disease (12 sources) Patient encounter status; Translations: [Encounter for screening for other viral diseases] Onset: 06-21-2022 Episodic Nutritional deficiencies (20 sources) Cobalamin deficiency; Translations: [Deficiency of other specified B group vitamins] Onset: 09-04-2022 Episodic Other aftercare (20 sources) Drug-induced immunodeficiency ; 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)] Onset: 06-21-2022 Episodic Other aftercare (1 source) Other prison (current) drug therapy; 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)] Onset: 06-21-2022 Episodic Other complications of (20 sources) RhD negative; Translations: [Other specified related conditions, unspecified trimester] Onset: 09-05-2022 09-05-2022 Episodic Other female genital disorders (1 source) Other specified noninflammatory disorders of vagina; Translations: [Vaginal discharge] Onset: 08-27-2022 Episodic Other hematologic conditions (20 sources) H/O: anemia - iron deficient; Translations: [Personal history of diseases of the blood and blood-forming organs and certain disorders involving the immune mechanism] Onset: 08-01-2022 08-01-2022 Episodic Other nutritional; endocrine; and metabolic disorders (20 sources) Body mass index 25-29 - overweight; Translations: [Overweight] Onset: 05-11-2021 05-11-2021 Episodic Other screening for suspected conditions (not mental disorders or infectious disease) (3 sources) Cancer cervix screening status; Translations: [Encounter for screening for malignant neoplasm of cervix] Onset: 06-21-2022 Episodic Residual codes; unclassified (1 source) 16 weeks gestation of ; Translations: [16 weeks gestation of ] Onset: 10-01-2022 Episodic Residual codes; unclassified (1 source) 12 weeks gestation of ; Translations: [12 weeks gestation of ] Onset: 09-03-2022 Episodic Residual codes; unclassified (1 source) 10 weeks gestation of ; Translations: [10 weeks gestation of ] Onset: 08-23-2022 Episodic Screening and history of mental health and substance abuse codes (20 sources) H/O: depression; Translations: [Personal history of other mental and behavioral disorders] Onset: 08-01-2022 08-01-2022 Episodic Results Test Name Value Interpretation Reference Range Facil ity Vital Signs Date Time Vital Sign Value Performing Clinician Jeanne fried 02-21-2023 10:49-0500 Body weight 74.93 kg Judy Barron APRN.CNM Work Phone: [facility] 02-21-2023 10:49-0500 Diastolic blood pressure 72 mm[Hg] Judy Barron APRN.CNM Work Phone: [facility] 02-21-2023 10:49-0500 Systolic blood pressure 110 mm[Hg] Judy Barron APRN.CNM Work Phone: [facility] 02-07-2023 11:15-0500 Body weight 73.94 kg Em Sampson APRN.CNM Work Phone: [facility] 02-07-2023 11:15-0500 Diastolic blood pressure 76 mm[Hg] Em Sampson APRN.CNM Work Phone: [facility] 02-07-2023 11:15-0500 Systolic blood pressure 118 mm[Hg] Em Sampson COMMERCIAL ANALYST.CNM Work Phone: [facility] 01-24-2023 13:19-0500 Body weight 72.12 kg Judy Barron COMMERCIAL ANALYST.CNM Work Phone: [facility] 01-24-2023 13:19-0500 Diastolic blood pressure 68 mm[Hg] Judy Garciats COMMERCIAL ANALYST.CNM Work Phone: [facility] 01-24-2023 13:19-0500 Systolic blood pressure 106 mm[Hg] Judy Barron COMMERCIAL ANALYST.CNM Work Phone: [facility] 01-24-2023 12:55-0500 Body weight 72.12 kg Ob Ultrasound Work Phone: [facility] 01-03-2023 08:31-0400 Body weight 71 kg Chair Bath Work Phone: [facility] 01-03-2023 08:29-0400 Body temperature 98.49 [degF] Chair Bath Work Phone: [facility] 01-03-2023 08:29-0400 Diastolic blood pressure 75 mm[Hg] Chair Bath Work Phone: [facility] 01-03-2023 08:29-0400 Heart rate 114 /min Chair Bath Work Phone: [facility] 01-03-2023 08:29-0400 Respiratory rate 18 /min Chair Bath Work Phone: [facility] 01-03-2023 08:29-0400 Systolic blood pressure 114 mm[Hg] Chair Bath Work Phone: [facility] 12-27-2022 15:19-0400 Body weight 71.22 kg Em Sampson COMMERCIAL ANALYST.CNM Work Phone: [facility] 12-27-2022 15:19-0400 Diastolic blood pressure 66 mm[Hg] Em Sampson COMMERCIAL ANALYST.CNM Work Phone: [facility] 12-27-2022 15:19-0400 Systolic blood pressure 110 mm[Hg] Em Adrián BOWMANCNM Work Phone: [facility] 12-27-2022 10:43-0400 Diastolic blood pressure 63 mm[Hg] Chair Bath Work Phone: [facility] 12-27-2022 10:43-0400 Heart rate 85 /min Chair Bath Work Phone: [facility] 12-27-2022 10:43-0400 Systolic blood pressure 102 mm[Hg] Chair Bath Work Phone: [facility] 12-27-2022 08:38-0400 Body temperature 97 [degF] Chair Bath Work Phone: [facility] 12-27-2022 08:38-0400 Respiratory rate 18 /min Chair Bath Work Phone: [facility] 12-27-2022 08:38-0400 SaO2% (BldA) [Mass fraction] 97 % Chair Bath Work Phone: [facility] 12-16-2022 16:15-0400 Body temperature 98.1 [degF] Chair Bath Work Phone: [facility] 12-16-2022 16:15-0400 Diastolic blood pressure 61 mm[Hg] Chair Bath Work Phone: [facility] 12-16-2022 16:15-0400 Heart rate 122 /min Chair Bath Work Phone: [facility] 12-16-2022 16:15-0400 Respiratory rate 20 /min Chair Bath Work Phone: [facility] 12-16-2022 16:15-0400 SaO2% (BldA) [Mass fraction] 97 % Chair Bath Work Phone: [facility] 12-16-2022 16:15-0400 Systolic blood pressure 100 mm[Hg] Chair Bath Work Phone: [facility] 12-16-2022 14:19-0400 Body weight 68.95 kg Chair Bath Work Phone: [facility] 12-02-2022 15:24-0400 Body temperature 97.7 [degF] Em Mejias COMMERCIAL ANALYST.ENGINEERING RECRUITER Work Phone: [facility] 12-02-2022 15:24-0400 Body weight 68.49 kg Em Mejias COMMERCIAL ANALYST.ENGINEERING RECRUITER Work Phone: [facility] 12-02-2022 15:24-0400 Diastolic blood pressure 62 mm[Hg] Em Mejias COMMERCIAL ANALYST.ENGINEERING RECRUITER Work Phone: [facility] 12-02-2022 15:24-0400 Heart rate 102 /min Em Mejias COMMERCIAL ANALYST.ENGINEERING RECRUITER Work Phone: [facility] 12-02-2022 15:24-0400 Respiratory rate 16 /min Em Mejias COMMERCIAL ANALYST.ENGINEERING RECRUITER Work Phone: [facility] 12-02-2022 15:24-0400 SaO2% (BldA) [Mass fraction] 100 % Em Mejias COMMERCIAL ANALYST.ENGINEERING RECRUITER Work Phone: [facility] 12-02-2022 15:24-0400 Systolic blood pressure 122 mm[Hg] Em Mejias COMMERCIAL ANALYST.ENGINEERING RECRUITER Work Phone: [facility] 11-29-2022 15:13-0400 Body weight 68.58 kg Ayanna Blanco MD Work Phone: [facility] 11-29-2022 15:13-0400 Diastolic blood pressure 70 mm[Hg] Ayanna Blanco MD Work Phone: [facility] 11-29-2022 15:13-0400 Systolic blood pressure 110 mm[Hg] Ayanna Blanco MD Work Phone: [facility] 10-22-2022 10:45-0400 Body weight 63.5 kg Marjorie Older COMMERCIAL ANALYST.ENGINEERING RECRUITER Work Phone: [facility] 10-22-2022 10:45-0400 Diastolic blood pressure 68 mm[Hg] Marjorie Older COMMERCIAL ANALYST.ENGINEERING RECRUITER Work Phone: [facility] 10-22-2022 10:45-0400 Heart rate 120 /min Marjorie Older COMMERCIAL ANALYST.ENGINEERING RECRUITER Work Phone: [facility] 10-22-2022 10:45-0400 Respiratory rate 18 /min Marjorie Older COMMERCIAL ANALYST.ENGINEERING RECRUITER Work Phone: [facility] 10-22-2022 10:45-0400 Systolic blood pressure 124 mm[Hg] Marjorie Older COMMERCIAL ANALYST.ENGINEERING RECRUITER Work Phone: [facility] 10-02-2022 14:39-0400 Body height 154.9 cm Giana Kalka PA-C Work Phone: [facility] 10-02-2022 14:39-0400 Body weight 63.05 kg Giana Kalka PA-C Work Phone: [facility] 10-02-2022 14:39-0400 Diastolic blood pressure 72 mm[Hg] Giana Kalka PA-C Work Phone: [facility] 10-02-2022 14:39-0400 Heart rate 90 /min Giana Kalka PA-C Work Phone: [facility] 10-02-2022 14:39-0400 Systolic blood pressure 112 mm[Hg] Giana Kalka PA-C Work Phone: [facility] 09-04-2022 09:43-0400 Body height 154.9 cm Ana Rico MD Work Phone: [facility] 09-04-2022 09:43-0400 Body weight 64.41 kg Ana Rico MD Work Phone: [facility] 09-04-2022 09:43-0400 Diastolic blood pressure 68 mm[Hg] Ana Rico MD Work Phone: [facility] 09-04-2022 09:43-0400 Heart rate 104 /min Ana Rico MD Work Phone: [facility] 09-04-2022 09:43-0400 SaO2% (BldA) [Mass fraction] 99 % Ana Rico MD Work Phone: [facility] 09-04-2022 09:43-0400 Systolic blood pressure 121 mm[Hg] Ana Rico MD Work Phone: [facility] 09-03-2022 10:44-0400 Body weight 63.96 kg Laureano Fajardo MD Work Phone: [facility] 09-03-2022 10:44-0400 Diastolic blood pressure 64 mm[Hg] Laureano Fajardo MD Work Phone: [facility] 09-03-2022 10:44-0400 Systolic blood pressure 98 mm[Hg] Laureano Fajardo MD Work Phone: [facility] 09-03-2022 10:11-0400 Body height 154.9 cm Paola Mora MD Work Phone: [facility] 09-03-2022 10:11-0400 Body weight 63.96 kg Paola Mora MD Work Phone: [facility] 08-27-2022 09:32-0400 Body weight 63.59 kg Em Adrián BROWN.CNM Work Phone: [facility] 08-27-2022 09:32-0400 Diastolic blood pressure 64 mm[Hg] Em Sampson COMMERCIAL ANALYST.CNM Work Phone: [facility] 08-27-2022 09:32-0400 Systolic blood pressure 110 mm[Hg] Em Sampson COMMERCIAL ANALYST.CNM Work Phone: [facility] 08-06-2022 14:08-0400 Body height 156.5 cm Laureano Fajardo MD Work Phone: [facility] 08-06-2022 14:08-0400 Body weight 63.96 kg Laureano Fajardo MD Work Phone: [facility] 08-06-2022 14:08-0400 Diastolic blood pressure 66 mm[Hg] Laureano Fajardo MD Work Phone: [facility] 08-06-2022 14:08-0400 Systolic blood pressure 112 mm[Hg] Laureano Fajardo MD Work Phone: [facility] 06-28-2022 10:36-0400 Body height 156.8 cm Ana Rico MD Work Phone: [facility] 06-28-2022 10:36-0400 Body temperature 98.4 [degF] Ana Rico MD Work Phone: [facility] 06-28-2022 10:36-0400 Body weight 60.78 kg Ana Rico MD Work Phone: [facility] 06-28-2022 10:36-0400 Diastolic blood pressure 100 mm[Hg] Ana Rico MD Work Phone: [facility] 06-28-2022 10:36-0400 Heart rate 77 /min Ana Rico MD Work Phone: [facility] 06-28-2022 10:36-0400 SaO2% (BldA) [Mass fraction] 97 % Ana Rico MD Work Phone: [facility] 06-28-2022 10:36-0400 Systolic blood pressure 134 mm[Hg] Ana Rico MD Work Phone: [facility] 06-21-2022 10:36-0400 Body height 156.8 cm Isabella Yeboah APRN.ENGINEERING RECRUITER Work Phone: [facility] 06-21-2022 10:36-0400 Body weight 60.78 kg Isabella Yeboah APRN.ENGINEERING RECRUITER Work Phone: [facility] 06-21-2022 10:36-0400 Diastolic blood pressure 82 mm[Hg] Isabella Yeboah APRN.ENGINEERING RECRUITER Work Phone: [facility] 06-21-2022 10:36-0400 Systolic blood pressure 144 mm[Hg] Isabella Yeboah APRN.ENGINEERING RECRUITER Work Phone: [facility] 06-10-2022 11:35-0400 Body height 154.9 cm Giana Saleh PA-C Work Phone: [facility] 06-10-2022 11:35-0400 Body weight 61.69 kg Giana Kalka PA-C Work Phone: [facility] 06-10-2022 11:35-0400 Diastolic blood pressure 74 mm[Hg] Giana Kalka PA-C Work Phone: [facility] 06-10-2022 11:35-0400 Heart rate 64 /min Giana Kalka PA-C Work Phone: [facility] 06-10-2022 11:35-0400 Systolic blood pressure 116 mm[Hg] Giana Kalka PA-C Work Phone: [facility] 05-01-2022 10:10-0500 Body temperature 98.49 [degF] Braden Hammonds COMMERCIAL ANALYST.ENGINEERING RECRUITER Work Phone: [facility] 05-01-2022 10:10-0500 Body weight 62.69 kg Braden Hammonds COMMERCIAL ANALYST.ENGINEERING RECRUITER Work Phone: [facility] 05-01-2022 10:10-0500 Diastolic blood pressure 84 mm[Hg] Braden Hammonds COMMERCIAL ANALYST.ENGINEERING RECRUITER Work Phone: [facility] 05-01-2022 10:10-0500 Heart rate 116 /min Braden Hammonds COMMERCIAL ANALYST.ENGINEERING RECRUITER Work Phone: [facility] 05-01-2022 10:10-0500 Respiratory rate 18 /min Braden Hammonds COMMERCIAL ANALYST.ENGINEERING RECRUITER Work Phone: [facility] 05-01-2022 10:10-0500 SaO2% (BldA) [Mass fraction] 97 % Braden Hammonds COMMERCIAL ANALYST.ENGINEERING RECRUITER Work Phone: [facility] 05-01-2022 10:10-0500 Systolic blood pressure 132 mm[Hg] Braden Hammonds COMMERCIAL ANALYST.ENGINEERING RECRUITER Work Phone: [facility] 02-28-2022 09:19-0500 Body height 154.9 cm Ana Rico MD Work Phone: [facility] 02-28-2022 09:19-0500 Body temperature 97.5 [degF] Ana Rico MD Work Phone: [facility] 02-28-2022 09:19-0500 Body weight 66.22 kg Ana Rico MD Work Phone: [facility] 02-28-2022 09:19-0500 Diastolic blood pressure 80 mm[Hg] Ana Rico MD Work Phone: [facility] 02-28-2022 09:19-0500 Heart rate 98 /min Ana Rico MD Work Phone: [facility] 02-28-2022 09:19-0500 SaO2% (BldA) [Mass fraction] 100 % Ana Rico MD Work Phone: [facility] 02-28-2022 09:19-0500 Systolic blood pressure 118 mm[Hg] Ana Rico MD Work Phone: [facility] 01-02-2022 16:43-0400 Body height 154.9 cm Britney Kay MD Work Phone: [facility] 01-02-2022 16:43-0400 Body temperature 99 [degF] Britney Kay MD Work Phone: [facility] 01-02-2022 16:43-0400 Body weight 65.77 kg Britney Kay MD Work Phone: [facility] 01-02-2022 16:43-0400 Diastolic blood pressure 60 mm[Hg] Britney Kay MD Work Phone: [facility] 01-02-2022 16:43-0400 Heart rate 77 /min Britney Kay MD Work Phone: [facility] 01-02-2022 16:43-0400 Respiratory rate 12 /min Britney Kay MD Work Phone: [facility] 01-02-2022 16:43-0400 SaO2% (BldA) [Mass fraction] 97 % Britney Kay MD Work Phone: [facility] 01-02-2022 16:43-0400 Systolic blood pressure 118 mm[Hg] Britney Kay MD Work Phone: [facility] 12-21-2021 10:59-0400 Body weight 65.77 kg Britney Kay MD Work Phone: [facility] 12-21-2021 10:59-0400 Diastolic blood pressure 80 mm[Hg] Britney Kay MD Work Phone: [facility] 12-21-2021 10:59-0400 Heart rate 86 /min Britney Kay MD Work Phone: [facility] 12-21-2021 10:59-0400 Respiratory rate 16 /min Britney Kay MD Work Phone: [facility] 12-21-2021 10:59-0400 SaO2% (BldA) [Mass fraction] 96 % Britney Kay MD Work Phone: [facility] 12-21-2021 10:59-0400 Systolic blood pressure 124 mm[Hg] Britney Kay MD Work Phone: [facility] 12-16-2021 11:52-0400 Body temperature 98.2 [degF] Em Mejias COMMERCIAL ANALYST.ENGINEERING RECRUITER Work Phone: [facility] 12-16-2021 11:52-0400 Body weight 65.32 kg Em Mejias COMMERCIAL ANALYST.ENGINEERING RECRUITER Work Phone: [facility] 12-16-2021 11:52-0400 Diastolic blood pressure 72 mm[Hg] Em Mejias COMMERCIAL ANALYST.ENGINEERING RECRUITER Work Phone: [facility] 12-16-2021 11:52-0400 Heart rate 124 /min Em Mejias COMMERCIAL ANALYST.ENGINEERING RECRUITER Work Phone: [facility] 12-16-2021 11:52-0400 Respiratory rate 18 /min Em Mejias COMMERCIAL ANALYST.ENGINEERING RECRUITER Work Phone: [facility] 12-16-2021 11:52-0400 SaO2% (BldA) [Mass fraction] 99 % Em Mejias COMMERCIAL ANALYST.ENGINEERING RECRUITER Work Phone: [facility] 12-16-2021 11:52-0400 Systolic blood pressure 122 mm[Hg] Em Mejias COMMERCIAL ANALYST.ENGINEERING RECRUITER Work Phone: [facility] 11-30-2021 08:41-0400 Body height 156.8 cm Giana Kalka PA-C Work Phone: [facility] 11-30-2021 08:41-0400 Body weight 66.68 kg Giana Kalka PA-C Work Phone: [facility] 11-30-2021 08:41-0400 Diastolic blood pressure 72 mm[Hg] Giana Kalka PA-C Work Phone: [facility] 11-30-2021 08:41-0400 Heart rate 66 /min Giana Kalka PA-C Work Phone: [facility] 11-30-2021 08:41-0400 Systolic blood pressure 102 mm[Hg] Giana Kalka PA-C Work Phone: [facility] 09-26-2021 09:41-0400 Body height 156.8 cm Giana Kalka PA-C Work Phone: [facility] 09-26-2021 09:41-0400 Body weight 62.05 kg Giana Kalka PA-C Work Phone: [facility] 09-26-2021 09:41-0400 Diastolic blood pressure 74 mm[Hg] Giana Kalka PA-C Work Phone: [facility] 09-26-2021 09:41-0400 Heart rate 79 /min Giana Kalka PA-C Work Phone: [facility] 09-26-2021 09:41-0400 Systolic blood pressure 112 mm[Hg] Giana Kalka PA-C Work Phone: [facility] 06-22-2021 14:04-0400 Body height 156.8 cm Ana Rico MD Work Phone: [facility] 06-22-2021 14:04-0400 Body temperature 97.2 [degF] Ana Rico MD Work Phone: [facility] 06-22-2021 14:04-0400 Body weight 62.41 kg Ana Rico MD Work Phone: [facility] 06-22-2021 14:04-0400 Diastolic blood pressure 74 mm[Hg] Ana Rico MD Work Phone: [facility] 06-22-2021 14:04-0400 Heart rate 70 /min Ana Rico MD Work Phone: [facility] 06-22-2021 14:04-0400 SaO2% (BldA) [Mass fraction] 99 % Ana Rico MD Work Phone: [facility] 06-22-2021 14:04-0400 Systolic blood pressure 114 mm[Hg] Ana Rico MD Work Phone: [facility] Encounters Encounter Date Encounter Type Care Provider Facility Start: 03-14-2023 ambulatory [facility] Facility:[facility] Start: 03-06-2023 End: 03-06-2023 [facility] Facility:[facility] Start: 02-28-2023 End: 02-28-2023 [facility] Facility:[facility] Start: 02-21-2023 End: 02-21-2023 [facility] Start: 02-21-2023 End: 02-21-2023 Patient encounter procedure Judy Barron COMMERCIAL ANALYST.CNM Work Phone: OB/Gynecology Procedures Date Procedure Procedure Detail Performing Clinician Start: 02-21-2023 URINE OB DIP B/O Betty Barron COMMERCIAL ANALYST.CNM Work Phone: Start: 02-21-2023 Us preg uterus after 1st trimest 03/10 gestation Laureano Fajardo MD Work Phone: Start: 02-07-2023 URINE OB DIP B/O Babitaernie lauren Adrián BROWN.CNM Work Phone: Start: 01-24-2023 URINE OB DIP B/O Betty Barron APRN.CNM Work Phone: Start: 01-24-2023 Us preg uterus after 1st trimest 03/10 gestation Laureano Fajardo MD Work Phone: Start: 12-27-2022 Antibody screen BRITNYE KAY Plan of Treatment Date Care Activity Detail Author Start: 12-27-2032 Urine microalbumin profile DTaP,Tdap,Td Vaccine (8 - Td or Tdap) [facility] Start: 06-21-2025 PAP TESTING PAP TESTING [facility] Start: 06-21-2025 Screening for malignant neoplasm of cervix Pap Testing [facility] Start: 10-02-2023 Urine microalbumin profile [facility] Start: 08-07-2023 CHLAMYDIA SCREENING (18-24) CHLAMYDIA SCREENING (18-24) [facility] Start: 08-07-2023 GC (GONORRHEA) SCREENING (18-24) GC (GONORRHEA) SCREENING (18-24) [facility] Start: 08-07-2023 Screening for Chlamydia trachomatis Chlamydia Screening (18-24) [facility] Start: 06-22-2023 CHLAMYDIA SCREENING (18-24) CHLAMYDIA SCREENING (18-24) [facility] Start: 06-22-2023 GC (GONORRHEA) SCREENING (18-24) GC (GONORRHEA) SCREENING (18-24) [facility] Start: 12-30-2022 End: 03-31-2023 GEST GLUC ANTOLIN, 3-HR, 100 GM, FASTING GEST GLUC ANTOLIN, 3-HR, 100 GM, FASTING Lab Routine Abnormal glucose complicating Expected: 12/30/2022, Expires: 03/31/2023 [facility] Work Phone: Immunizations Immunization Date Immunization Notes Care Provider Edith arora 12-27-2022 RHO(D) immune globul in- IV or IM Ayanna Blanco MD Work Phone: [facility] 12-27-2022 tetanus toxoid, redu jitendra diphtheria toxoid, and acellular pertussis vaccine, adsorbed Ayanna Blanco MD Work Phone: [facility] 11-29-2022 influenza, injectabl e, quadrivalent, contains preservative Em Mejias APRN.CNP Work Phone: [facility] 12-21-2021 influenza, injectabl e, quadrivalent, contains preservative Britney Kay MD Work Phone: [facility] Work Phone: 04-18-2021 hepatitis B vaccine, adult dosage Giana Kalka PA-C Work Phone: [facility] 02-20-2021 hepatitis B vaccine, adult dosage Giana Kalka PA-C Work Phone: [facility] Work Phone: 11-12-2019 Human Papillomavirus 9-valent vaccine Giana Kalka PA-C Work Phone: [facility] 11-12-2019 influenza, injectabl e, quadrivalent, preservative free Giana Kalka PA-C Work Phone: [facility] 10-16-2018 Human Papillomavirus 9-valent vaccine Giana Kalka PA-C Work Phone: [facility] 01-10-2018 influenza, injectabl e, quadrivalent, contains preservative Giana Kalka PA-C Work Phone: [facility] 06-18-2017 Human Papillomavirus 9-valent vaccine Giana Kalka PA-C Work Phone: [facility] 06-18-2017 meningococcal polysaccharide (groups A, C, Y and W-135) diphtheria toxoid conjugate vaccine (MCV4P) Giana Kalka PA-C Work Phone: [facility] 04-12-2017 influenza, injectabl e, quadrivalent, contains preservative Giana Kalka PA-C Work Phone: [facility] 02-03-2016 influenza, injectabl e, quadrivalent, contains preservative Giana Kalka PA-C Work Phone: [facility] 01-21-2015 influenza, injectabl e, quadrivalent, contains preservative Giana Stevenka PA-C Work Phone: [facility] Work Phone: 01-06-2014 influenza, injectabl e, quadrivalent, preservative free Giana Stevenka PA-C Work Phone: [facility] 10-01-2013 meningococcal polysaccharide (groups A, C, Y and W-135) diphtheria toxoid conjugate vaccine (MCV4P) Giana Stevenka PA-C Work Phone: [facility] Work Phone: 10-01-2013 tetanus toxoid, redu jitendra diphtheria toxoid, and acellular pertussis vaccine, adsorbed Giana Kalka PA-C Work Phone: [facility] Work Phone: 10-01-2013 varicella virus vaccine Derejebaron regalado Stevenka PA-C Work Phone: [facility] Work Phone: 12-12-2012 influenza virus vaccine, unspecified formulation Giana Stevenka PA-C Work Phone: [facility] Work Phone: 12-28-2011 influenza virus vaccine, unspecified formulation Giana Stevenka PA-C Work Phone: [facility] Work Phone: 02-04-2011 influenza virus vaccine, unspecified formulation Giana Kalka PA-C Work Phone: [facility] Work Phone: 11-25-2009 influenza virus vaccine, live, attenuated, for intranasal use Giana Kalka PA-C Work Phone: [facility] Work Phone: 12-29-2008 influenza virus vaccine, unspecified formulation Giana Stevenka PA-C Work Phone: [facility] Work Phone: 02-13-2008 influenza virus vaccine, unspecified formulation Giana Harriska PA-C Work Phone: [facility] Work Phone: 10-15-2006 diphtheria, tetanus toxoids and acellular pertussis vaccine Giana Harriska PA-C Work Phone: [facility] 10-15-2006 measles, mumps and rubella virus vaccine Giana Harriska PA-C Work Phone: [facility] 10-15-2006 poliovirus vaccine, inactivated Giana Harriska PA-C Work Phone: [facility] 08-16-2004 pneumococcal conjuga te vaccine, 7 valent Giana Kalka PA-C Work Phone: [facility] Work Phone: 07-18-2003 diphtheria, tetanus toxoids and acellular pertussis vaccine Giana Harriska PA-C Work Phone: [facility] Work Phone: 07-18-2003 haemophilus influenz ae type b vaccine, HbOC conjugate Giana Harriska PA-C Work Phone: [facility] Work Phone: 07-18-2003 hepatitis B vaccine, pediatric or pediatric/adolescent dosage Giana Stevenka PA-C Work Phone: [facility] Work Phone: 06-18-2002 hepatitis B vaccine, pediatric or pediatric/adolescent dosage Giana Stevenka PA-C Work Phone: [facility] Work Phone: 06-18-2002 measles, mumps and rubella virus vaccine Giana Stevenka PA-C Work Phone: [facility] Work Phone: 06-18-2002 pneumococcal conjuga te vaccine, 7 valent Giana Kalka PA-C Work Phone: [facility] Work Phone: 06-18-2002 varicella virus vaccine Dereje Harriska PA-C Work Phone: [facility] Work Phone: 2001 diphtheria, tetanus toxoids and acellular pertussis vaccine Giana Harriska PA-C Work Phone: [facility] Work Phone: 2001 haemophilus influenz ae type b vaccine, HbOC conjugate Giana Harriska PA-C Work Phone: [facility] Work Phone: 2001 influenza virus vaccine, unspecified formulation Giana Harriska PA-C Work Phone: [facility] Work Phone: 2001 poliovirus vaccine, inactivated Giana Harriska PA-C Work Phone: [facility] Work Phone: 2001 diphtheria, tetanus toxoids and acellular pertussis vaccine Giana Harriska PA-C Work Phone: [facility] Work Phone: 2001 haemophilus influenz ae type b vaccine, HbOC conjugate Giana Harriska PA-C Work Phone: [facility] Work Phone: 2001 pneumococcal conjuga te vaccine, 7 valent Giana Harriska PA-C Work Phone: [facility] Work Phone: 2001 poliovirus vaccine, inactivated Giana Kalka PA-C Work Phone: [facility] Work Phone: 2001 diphtheria, tetanus toxoids and acellular pertussis vaccine Giana Harriska PA-C Work Phone: [facility] Work Phone: 2001 haemophilus influenz ae type b vaccine, HbOC conjugate Giana Kalka PA-C Work Phone: [facility] Work Phone: 2001 pneumococcal conjuga te vaccine, 7 valent Giana Saleh PA-C Work Phone: [facility] Work Phone: 2001 poliovirus vaccine, inactivated Giana Saleh PA-C Work Phone: [facility] Work Phone: 2001 hepatitis B vaccine, pediatric or pediatric/adolescent dosage Giana Saleh PA-C Work Phone: [facility] Work Phone: NEGATED: Highlighted row has not occurred!12-27-2022 RHO(D) immune globulin- IV or IM Chair [place] Work Phone: [facility] Payers Date Payer Category Payer Medicaid [place] [employer] [place] [id number] 2022-Present [phone] [address] [place] [address] Medicaid [id number] 2022 Medicaid [id number] 2022 Private Health Insurance HUMANA HU[employer]NA MEDICAID [facility] [id number] 2022-Present [address] [address] [place] [address] Medicaid [id number] 2020 Unknown ALFRED RAMAN ACCE SS PPO [id number] 2020-Present [phone] [address] [place] [address] PPO [id number] 2020 Unknown [id number] 2018 Unknown MMO MMO [employer] [id number] 2018-Present [phone] [address] [place] [address] PPO [id number] 2016 Unknown [id number] 2016 Unknown [id number] Social History Date Type Detail Facility Start: 09-11-2012 End: 12-16-2021 Tobacco smoking status NHIS Never smoked tobacco [facility] Start: 06-20-2021 End: 06-28-2022 Alcohol intake Current drinker of alcohol (finding) [facility] Start: 05-11-2021 History SDOH Alcohol Frequency 2 [facility] Start: 05-11-2021 History SDOH Alcohol Std Drinks 1 [facility] Start: 08-01-2020 History SDOH Alcohol Comment occasional [facility] Start: 2001 Sex Assigned At Not on file C [facility] Start: 05-11-2021 End: 01-02-2022 Exposure to SARS-CoV-2 (event) Not sure [facility] Start: 09-11-2012 End: 12-16-2021 Tobacco use and exposure Smokeless tobacco non-user [facility] Start: 08-06-2022 End: 02-21-2023 Alcohol intake Ex-drinker (finding) [facility] Start: 08-01-2022 Education 13 [facility] Start: 06-25-2022 [facility] Start: 08-01-2022 End: 09-04-2022 History of Social function [facility] Work Phone: Start: 08-01-2022 End: 09-04-2022 Tobacco use panel [facility] Work Phone: Adult Depression Screening Assessment 5 [facility] Work Phone: How often to you hav e a drink containing alcohol? Monthly or less [facility] Work Phone: How many standard drinks containing alcohol do you have on a typical day? 1 or 2 [facility] Work Phone: How often do you hav e 6 or more drinks on 1 occasion? Never [facility] Work Phone: Goals Date Patient Goal Desired Activity /State Personal health goal Clinical Notes 08-24-2015 to 03-06-2023 Quick Notes - Judy Barron APRN.[facility] - 02/21/2023 11:03 AM ESTPatient InstructionsPrenatal Quick Notes - Em Sampson APRN.[facility] - 02/07/2023 12:41 PM ESTPatient Instructions Note Date & Type Note Facility 03-06-2023 Note HNO ID: [id number] Author: Maikol Ibrahim Service: ? Author Type: ? Type: Progress Notes Filed: 03/06/2023 7:22 AM Note Text: POPULATION HEALTH NAVIGATION OUTREACH Action/FYI Responded via my chart added woven paper hat mender to ob provider field Patient Identified by Name and : YES, via MyChart Outreach Outcome/Action OB/PEDS field updated Did you use a PCP flex slot to schedule this appointment? N/A Reason for Outreach Payer: Payor: ALFRED / Plan: BLUE ACCESS PPO / Product Type: PPO / Navigation Signature: Maikol Ibrahim March 06, 2023 7:22 AM [facility] 03-05-2023 Note HNO ID: [id number] Author: Maikol Ibrahim Service: ? Author Type: ? Type: Progress Notes Filed: 03/05/2023 9:43 AM Note Text: POPULATION HEALTH NAVIGATION OUTREACH Action/FYI 3rd attempt left message to add woven paper hat mender to ob provider field Patient Identified by Name and : NO Outreach Outcome/Action Unable to reach patient: Left message Did you use a PCP flex slot to schedule this appointment? N/A Reason for Outreach [place] Payer: Payor: ALFRED / Plan: BLUE ACCESS PPO / Product Type: PPO / Navigation Signature: Maikol Ibrahim March 05, 2023 9:42 AM [facility] 03-04-2023 Note Patient Outreach (KWESI JARA) RADHA BARNES ([id number]) 2 F Date Time Provider Department 03/04/23 MAIKOL IBRAHIM During your visit today, we recorded the following information about you: Maikol Ibrahim 03/04/2023 10:37 AM Signed POPULATION HEALTH NAVIGATION OUTREACH Action/FYI Left message to add woven paper hat mender to OB provider field My chart sent Patient Identified by Name and : NO Outreach Outcome/Action Unable to reach patient: Left message WebNoteshart message sent Did you use a PCP flex slot to schedule this appointment? N/A Reason for Outreach [place] Payer: Payor: ALFRED / Plan: BLUE ACCESS PPO / Product Type: PPO / Care Gap Reviewed:: N/A Reminder: Reminder note to check Health Maintenance for items below Health Maintenance items due: Covid-19 Vaccine(1) Never done Pneumococcal Vaccine(1 of 2 - PCV) due on 06/10/2007 Meningococcal B Vaccine: Consider Based On Risk(1 of 4 - Increased Risk) Never done Hepatitis A Vaccine(1 of 2 - Risk 2-dose series) Never done Shingrix Vaccine(1 of 2) Never done Navigation Signature: Maikol Ibrahim March 04, 2023 10:36 AM Maikol Ibrahim 03/05/2023 9:43 AM Signed POPULATION HEALTH NAVIGATION OUTREACH Action/FYI 3rd attempt left message to add woven paper hat mender to ob provider field Patient Identified by Name and : NO Outreach Outcome/Action Unable to reach patient: Left message Did you use a PCP flex slot to schedule this appointment? N/A Reason for Outreach [place] Payer: Payor: ALFRED / Plan: BLUE ACCESS PPO / Product Type: PPO / Navigation Signature: Maikol Ibrahim March 05, 2023 9:42 AM Maikol Ibrahim 03/06/2023 7:22 AM Signed POPULATION HEALTH NAVIGATION OUTREACH Action/FYI Responded via my chart added woven paper hat mender to ob provider field Patient Identified by Name and : YES, via [employer] Outreach Outcome/Action OB/PEDS field updated Did you use a PCP flex slot to schedule this appointment? N/A Reason for Outreach Payer: Payor: ALFRED / Plan: BLUE ACCESS PPO / Product Type: PPO / Navigation Signature: Maikol Ibrahim March 06, 2023 7:22 AM Allergies As of Date: 03/04/2023 (No Known Allergies) Date Reviewed: 02/28/2023 Reviewed by: Corie Peacock APRN.ENGINEERING RECRUITER - Fully Assessed Reason for Visit: Population Health Navigation Outreach [3910] Cmt: Ob/peds Prescriptions as of 03/06/2023 - ergocalciferol 50,000 unit capsule (VITAMIN D2, DRISDOL) Take by mouth. - pyridoxine, vitamin B6, (VITAMIN B-6) 50 mg tablet Take 1 tablet by mouth once daily. - ondansetron (ZOFRAN) 4 mg tablet Take 1 tablet by mouth every 8 hours as needed for nausea/vomiting. - prental multivitamin 27 mg iron- 800 mcg tablet Take 1 tablet by mouth once daily. - ferrous sulfate 325 mg (65 mg iron) tablet Take 1 tablet by mouth daily with breakfast. Problem List As Of Date 03/04/2023 Noted Resolved Childhood overweight, BMI 85-94.9 percentile [E*08/24/2015 05/11/2021 Generalized anxiety disorder [F41.1] 06/01/2020 Iron deficiency anemia due to chronic blood los*02/09/2021 Ulcerative colitis (HCC) [K51.90] 02/09/2021 Overweight (BMI 25.0-29.9) [E66.3] 05/11/2021 Moderate episode of recurrent major depressive *12/21/2021 Immunocompromised state due to drug therapy (HC*06/21/2022 History of iron deficiency anemia [Z86.2] 08/01/2022 History of depression [Z86.59] 08/01/2022 Patient request for diagnostic testing [Z01.89] 08/01/2022 B12 deficiency [E53.8] 09/04/2022 Rh negative state in antepartum period [O26.899*09/05/2022 Abnormal glucose complicating [O99.81*12/30/2022 Encounter Status:Closed by MAIKOL IBRAHIM on 03/04/23 [facility] 03-04-2023 Note HNO ID: [id number] Author: Miakol Ibrahim Service: ? Author Type: ? Type: Progress Notes Filed: 03/04/2023 10:37 AM Note Text: POPULATION HEALTH NAVIGATION OUTREACH Action/I Left message to add woven paper hat mender to OB provider field My chart sent Patient Identified by Name and : NO Outreach Outcome/Action Unable to reach patient: Left message MyChart message sent Did you use a PCP flex slot to schedule this appointment? N/A Reason for Outreach [place] Payer: Payor: CSAANDRAEM / Plan: BLUE ACCESS PPO / Product Type: PPO / Care Gap Reviewed:: N/A Reminder: Reminder note to check Health Maintenance for items below Health Maintenance items due: Covid-19 Vaccine(1) Never done Pneumococcal Vaccine(1 of 2 - PCV) due on 06/10/2007 Meningococcal B Vaccine: Consider Based On Risk(1 of 4 - Increased Risk) Never done Hepatitis A Vaccine(1 of 2 - Risk 2-dose series) Never done Shingrix Vaccine(1 of 2) Never done Navigation Signature: Maikol Lizzie March 04, 2023 10:36 AM [facility] 02-21-2023 Miscellaneous Notes Radha Barnes is a 22 year old female who presents at 36w3d for a routine visit. Just completed growth US- EFW 72%, JARET 19. Good movement. Occasional headaches that resolve with Tylenol. Denies visual changes, chest pain, shortness of breath, vaginal bleeding, leakage of fluid, or dysuria. Feeling well, no complaints. Educated on cervical exams and s/s of labor. Size equal to dates. 24 lbs TWG. ASSESSMENT/PLAN: 1. 36 weeks gestation of - ICD9: V22.2, ICD10: Z3A.36 (primary diagnosis) - URINE OB DIP B/O - ROUTINE, GROUP B STREP PCR 2. Encounter for supervision of normal first in third trimester - ICD9: V22.0, ICD10: Z34.03 3. Ulcerative colitis with other complication, unspecified location (HCC) - ICD9: 556.9, ICD10: K51.918 PTL precautions reviewed. RTC in 1 week or sooner if needed. Judy Barron APRN.CNM documented in this encounter [facility] 02-21-2023 Instructions Britany Min MA - 02/21/2023 10:22 AM EST SEQUENTIAL SCREENINGS The [facility] offers sequential screenings for women who are interested in screenings for chromosomal abnormalities and certain defects during a . The sequential screen combines ultrasound and blood tests to determine the risk of chromosomal abnormalities, including Down's Syndrome (Trisomy 21) and Trisomy 18, as well as open neural tube defects including spina bifida. Ultrasound examination is performed between 11 weeks and 13 weeks gestational age. Blood tests are drawn after the ultrasound and again later in the between 15 and 21 weeks gestational age. Please let your physician know if you are interested in this testing. It will require an appointment with our mammography technician. This is not an ultrasound performed by a physician in our office during a routine visit. SIGNS AND SYMPTOMS OF LABOR 1. Contractions every 10 minutes or more often 2. Clear, pink, or brownish fluid (water) leaking from vagina 3. Feeling that baby is pushing down, pressure 4. Low, dull backache 5. Cramps that feel like a period 6. Cramps with or without diarrhea If you notice any of the above symptoms, contact our office at [phone] and ask to speak with a nurse. After hours, you can call doctors registry at [phone] OR call [facility] at [phone] and ask to have the doctor television maintenance worker paged. If you consider this an emergency, dial 9-1-3 or go to your nearest emergency department. NEED HELP? Are you dealing with a violent or abusive relationship? Are you a victim of rape or sexual assult? Call [facility] ([facility] 24 hour Crisis Hotline: 139.163.6918 or 382-108-9321. MANUAL Your Guide to a Healthy manual is now on-line. Visit [email or web address] to download your free copy documented in this encounter [facility] 02-07-2023 Miscellaneous Notes KELLIAlleyS: Radha Barnes is a 22 year old female who presents at 34w3d with NAJMA: 03/18/2023, by Last Menstrual Period for a routine visit. Good FM>Denies headache, visual changes, chest pain, shortness of breath, vaginal bleeding, leakage of fluid, or dysuria. Has had some lower abdominal crampiness last 2 weeks,rates this 4/10 discomfort, Occurred 3 times this morning, very irregular. Is having some shooting pains vaginally at times O: See flow sheet Gen: No apparent distress Abd: Gravid, nontender TWG 22 lb, S=D ASSESSMENT/PLAN: 1. 34 weeks gestation of 2. 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 I have re-performed the HPI, Physical Examination, Assessment and Plan. Em Sampson APRN.CNM documented in this encounter [facility] 02-07-2023 Instructions Elsa Pires Ma - 02/07/2023 11:14 AM EST SEQUENTIAL SCREENINGS The [facility] offers sequential screenings for women who are interested in screenings for chromosomal abnormalities and certain defects during a . The sequential screen combines ultrasound and blood tests to determine the risk of chromosomal abnormalities, including Down's Syndrome (Trisomy 21) and Trisomy 18, as well as open neural tube defects including spina bifida. Ultrasound examination is performed between 11 weeks and 13 weeks gestational age. Blood tests are drawn after the ultrasound and again later in the between 15 and 21 weeks gestational age. Please let your physician know if you are interested in this testing. It will require an appointment with our mammography technician. This is not an ultrasound performed by a physician in our office during a routine visit. SIGNS AND SYMPTOMS OF LABOR 1. Contractions every 10 minutes or more often 2. Clear, pink, or brownish fluid (water) leaking from vagina 3. Feeling that baby is pushing down, pressure 4. Low, dull backache 5. Cramps that feel like a period 6. Cramps with or without diarrhea If you notice any of the above symptoms, contact our office at [phone] and ask to speak with a nurse. After hours, you can call doctors registry at [phone] OR call [facility] at [phone] and ask to have the doctor television maintenance worker paged. If you consider this an emergency, dial 9--9 or go to your nearest emergency department. NEED HELP? Are you dealing with a violent or abusive relationship? Are you a victim of rape or sexual assult? Call [facility] ([place]) 24 hour Crisis Hotline: 221.689.7885 or 641-255-8655. MANUAL Your Guide to a Healthy manual is now on-line. Visit [email or web address] [email or web address] to download your free copy documented in this encounter [facility] 01-24-2023 Instructions Albin Willis Cma - 01/24/2023 1:36 PM EST SEQUENTIAL SCREENINGS The [facility] offers sequential screenings for women who are interested in screenings for chromosomal abnormalities and certain defects during a . The sequential screen combines ultrasound and blood tests to determine the risk of chromosomal abnormalities, including Down's Syndrome (Trisomy 21) and Trisomy 18, as well as open neural tube defects including spina bifida. Ultrasound examination is performed between 11 weeks and 13 weeks gestational age. Blood tests are drawn after the ultrasound and again later in the between 15 and 21 weeks gestational age. Please let your physician know if you are interested in this testing. It will require an appointment with our mammography technician. This is not an ultrasound performed by a physician in our office during a routine visit. SIGNS AND SYMPTOMS OF LABOR 1. Contractions every 10 minutes or more often 2. Clear, pink, or brownish fluid (water) leaking from vagina 3. Feeling that baby is pushing down, pressure 4. Low, dull backache 5. Cramps that feel like a period 6. Cramps with or without diarrhea If you notice any of the above symptoms, contact our office at [phone] and ask to speak with a nurse. After hours, you can call doctors registry at [phone] OR call [facility] at [phone] and ask to have the doctor television maintenance worker paged. If you consider this an emergency, dial 9-1-1 or go to your nearest emergency department. NEED HELP? Are you dealing with a violent or abusive relationship? Are you a victim of rape or sexual assult? Call [facility] ([place]) 24 hour Crisis Hotline: 400.115.2030 or 600-177-9338. MANUAL Your Guide to a Healthy manual is now on-line. Visit [email or web address] to download your free copy documented in this encounter [facility] 01-24-2023 Miscellaneous Notes Radha Barnes is a 22 year old female who presents at 32w3d for a routine visit. Just completed growth US- awaiting final results. Good movement. No cramps or contractions. Denies headache, visual changes, chest pain, shortness of breath, vaginal bleeding, leakage of fluid, or dysuria. C/O vaginal irritation and discharge. Stated was treated for BV around 4 weeks ago and feeling like it has returned. Size equal to dates. 18 lbs TWG. ASSESSMENT/PLAN: 1. Anemia during in third trimester - ICD9: 648.23, ICD10: O99.013 (primary diagnosis) - Last CBC was 2 weeks ago and Hgb. 11.3 2. 32 weeks gestation of - ICD9: V22.2, ICD10: Z3A.32 - URINE OB DIP B/O 3. Vaginal discharge during in third trimester - ICD9: 646.83, 623.5, ICD10: O26.893, N89.8 - BACTERIAL VAGINOSIS NAAT - GILBERT/TRICHOMONAS NAAT 4. Ulcerative colitis with other complication, unspecified location (HCC) - ICD9: 556.9, ICD10: K51.918 PTL precautions reviewed. RTC in 2 weeks or sooner if needed Judy Plotts, COMMERCIAL ANALYST.CNM documented in this encounter [facility] 01-20-2023 Miscellaneous Notes Patient has h/o ulcerative colitis. Cassie Ewing RN Agree with monitoring at this time. To be seen for worsening cramping or pain, severe pain, VB, LOF, urinary symptoms, change in bowel habits. Thanks Patient states in the last week she has had 1 to 2 episodes a day of cramping that lasts only 30 seconds. Yesterday patient states she had 4 to 5 episodes of cramping that lasted around 30 to 60 seconds. Patient states she feels the cramping in her lower abdomen when it occurs and describes as mild cramping. Denies any bleeding, leaking or decreased movement. Patient states she is staying well hydrated with water and denies any urinary symptoms. Discussed staying well hydrated and to call if cramping/contractions become more frequent and timeable. Patient has appointment this Friday for ultrasound and OB visit. Mulu Perry RN documented in this encounter [facility] 01-02-2023 Miscellaneous Notes Patient originally wrote about the discomfort with BV? She will need seen in office when she is able to evaluate. Thank you. Judy Barron APRN.CNM I contacted pt and she was not able to take the appointment that I have open tomorrow. Pt reports no vaginal odor , yellow discharge, and irritation. Please advise Eulalia Nguyễn LPN Please see if patient can be worked into schedule tomorrow to be seen. Thank you. Judy Barron APRN.CNM Please see pt's mychart message and advise in KJ absence. Eulalia Nguyễn LPN documented in this encounter [facility] 12-31-2022 Miscellaneous Notes 3rd risk assessment form submitted 12/31/2022. Charlotte Zhu RN documented in this encounter [facility] 12-31-2022 Miscellaneous Notes documented in this encounter [facility] 12-30-2022 Miscellaneous Notes See result note 3 hr GTT ordered documented in this encounter [facility] 12-27-2022 Note HNO ID: [id number] Author: Albin Willis Cma Service: ? Author Type: ? Type: Progress Notes Filed: 01/04/2023 11:05 AM Note Text: Patient identified by name and date of . Radha Barnes presents today for a vaccination of Tdap. Patient denies an allergy to latex: yes Patient denies a severe (life-threatening) allergy to a previous dose of Tdap, DTP, DTaP, DT or Td vaccine. Yes Patient denies history of epilepsy or neurological problems: Yes Patient is afebrile and denies being moderately or severely ill: Yes Patient denies history of Guillain-[place] Syndrome (a severe paralytic illness): Yes Tdap Adacel injection was given without incident. See immunizations for details of immunizations administered today. VIS sheet provided: Yes Provider Em Sampson CNM was present in office at time of injection. Albin Willis Cma [facility] 12-27-2022 Miscellaneous Notes KELLI-S: Radha Barnes is a 22 year old female who presents at 29w4d with NAJMA:03/18/2023, by Last Menstrual Period for a routine visit. Good FM. Denies headache, visual changes, chest pain, shortness of breath, vaginal bleeding, leakage of fluid, or dysuria. Feeling well, no complaints. O: See flow sheet Gen: No apparent distress Abd: Gravid, nontender ASSESSMENT/PLAN: 1. Encounter for supervision of normal first in third trimester 2. 28 weeks gestation of 3. Need for vaccination - ICD9: V05.9, ICD10: Z23 4. Rh negative status during in third trimester P: -PTL precautions reviewed and when to call -RTO in two weeks -Growth US at 32 and 36 weeks due to UC. -Continue iron infusions, last infusion next week, will repeat CBC next visit. - 1 hour GCT, CBC, and RPR today - Rh negative- Rhogam injection today - TDAP today - LARC form reviewed and signed. Patient declines - Depression screen negative - Opioid screen negative - plan form discussed and given to patient. Patient desires unmedicated -Treatment for BV, Flagyl 500mg PO BID - PTL precautions and kick counts reviewed Em Sampson APRN.CNM documented in this encounter [facility] 12-27-2022 History of Presen t illness Narrative Patient identified by name and date of . Radha Barnes presents today for a vaccination of Tdap. Patient denies an allergy to latex: yes Patient denies a severe (life-threatening) allergy to a previous dose of Tdap, DTP, DTaP, DT or Td vaccine. Yes Patient denies history of epilepsy or neurological problems: Yes Patient is afebrile and denies being moderately or severely ill: Yes Patient denies history of Guillain-[place] Syndrome (a severe paralytic illness): Yes Tdap Adacel injection was given without incident. See immunizations for details of immunizations administered today. VIS sheet provided: Yes Provider Em Sampson CNM was present in office at time of injection. Albin Willis Cma documented in this encounter [facility] 12-27-2022 Instructions Albin Willis Cma - 12/27/2022 3:18 PM EDT SEQUENTIAL SCREENINGS The [facility] offers sequential screenings for women who are interested in screenings for chromosomal abnormalities and certain defects during a . The sequential screen combines ultrasound and blood tests to determine the risk of chromosomal abnormalities, including Down's Syndrome (Trisomy 21) and Trisomy 18, as well as open neural tube defects including spina bifida. Ultrasound examination is performed between 11 weeks and 13 weeks gestational age. Blood tests are drawn after the ultrasound and again later in the between 15 and 21 weeks gestational age. Please let your physician know if you are interested in this testing. It will require an appointment with our mammography technician. This is not an ultrasound performed by a physician in our office during a routine visit. SIGNS AND SYMPTOMS OF LABOR 1. Contractions every 10 minutes or more often 2. Clear, pink, or brownish fluid (water) leaking from vagina 3. Feeling that baby is pushing down, pressure 4. Low, dull backache 5. Cramps that feel like a period 6. Cramps with or without diarrhea If you notice any of the above symptoms, contact our office at [phone] and ask to speak with a nurse. After hours, you can call doctors registry at [phone] OR call [facility] at [phone] and ask to have the doctor television maintenance worker paged. If you consider this an emergency, dial or go to your nearest emergency department. NEED HELP? Are you dealing with a violent or abusive relationship? Are you a victim of rape or sexual assult? Call [facility] ([place]) 24 hour Crisis Hotline: 208.761.1711 or 115-164-6054. MANUAL Your Guide to a Healthy manual is now on-line. Visit [email or web address] [email or web address] to download your free copy documented in this encounter [facility] 12-26-2022 Note HNO ID: [id number] Author: Laureano Fajardo MD Service: ? Author Type: Physician Type: Progress Notes Filed: 12/26/2022 2:47 PM Note Text: Radha Barnes is a 22 year old female who presents for problem visit. HPI: Patient presents with increased vaginal discharge. Also reports vaginal burning/irritation. Denies dysuria or STD concerns. Reports good FM. She plans to return tomorrow for routine OB visit AND do 28wk labs then. OB History T0 L0 SAB0 IAB0 Ectopic0 Multiple0 Live Births0 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 History LMP: 06/11/2022 (Exact Date), Age at Menarche: Age at First : Age at Menopause: 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 History Comments: Sexual Activity: Yes; Male Contraception: None PAST MEDICAL HISTORY Diagnosis Date Anxiety and depression Childhood overweight, BMI 85-94.9 percentile 08/2015 Iron deficiency anemia Iron deficiency anemia due to chronic blood loss 02/09/2021 Menarche 01/2013 PMH - PAST MEDICAL HISTORY OF 10/15/2006 normal color vision depression Ulcerative colitis (HCC) PAST SURGICAL HISTORY Procedure Laterality Date CAPSULE ENDOSCOPY SMALL BOWEL 01/25/2021 COLONOSCOPY GEN ANES 12/08/2020 EGD 12/08/2020 UNLISTED DIAGNOSTIC GASTROENTEROLOGY PROCEDURE 01/25/2021 FAMILY HISTORY Problem Relation Age of Onset Hypertension Mother other (gluten intolerance) Mother Hypertension Father Heart Sister murmur as an Heart Maternal Grandmother Diabetes Maternal Grandmother Hypertension Maternal Grandfather Heart Maternal Grandfather 60s other (Bladder cancer) Maternal Grandfather smoker Heart Paternal Grandmother Hypertension Paternal Grandmother Hypertension Paternal Grandfather Heart Paternal Grandfather age 52 [place]; adn MGGF Social History Tobacco Use Smoking status: Never Smokeless tobacco: Never Vaping Use Vaping Use: Never used Substance Use Topics Alcohol use: Not Currently Comment: occasional Drug use: No Current Outpatient Medications Medication Sig ergocalciferol 50,000 unit capsule (VITAMIN D2, DRISDOL) Take by mouth. pyridoxine, vitamin B6, (VITAMIN B-6) 50 mg tablet Take 1 tablet by mouth once daily. ondansetron (ZOFRAN) 4 mg tablet Take 1 tablet by mouth every 8 hours as needed for nausea/vomiting. prental multivitamin 27 mg iron- 800 mcg tablet Take 1 tablet by mouth once daily. ferrous sulfate 325 mg (65 mg iron) tablet Take 1 tablet by mouth daily with breakfast. No current facility-administered medications for this visit. Allergies As of Date: 12/26/2022 (No Known Allergies) Fully Assessed 12/16/2022 Allergies and current medication updated:Yes EXAM: BP 122/72 Wt 155 lb (70.3kg) LMP 06/11/2022 GENERAL: pleasant, female in no apparent distress PELVIC: external genitalia normal, normal Bartholin's glands, urethra, [place]'s glands, no vulvar lesions, no cervical lesions, good vaginal support, whit discharge present, normal appearing perineal body and perianal region ASSESSMENT AND PLAN: Encounter Diagnosis ICD-10-CM 1. Vaginal burning N94.9 GILBERT/TRICHOMONAS NAAT BACTERIAL VAGINOSIS NAAT 2. Vaginal irritation N89.8 GILBERT/TRICHOMONAS NAAT BACTERIAL VAGINOSIS NAAT FOllow up as schedule tomrorow as declines 28wk OB labs AND rhogam today Laureano Fajardo MD [facility] 12-06-2022 Note HNO ID: [id number] Author: Melodie Florence MA Service: ? Author Type: Bias Machine Operator Helper Type: Progress Notes Filed: 12/07/2022 10:30 AM Note Text: The patient is here for an injection of Cyanocoblamin (B12). Dose: 1 ml (1000 mcg) Route: IM Site: left deltoid Laborer Laboratory: [facility] [employer] Lot #: [id number] Expiration Date: 06/01 Melodie Florence MA [facility] 12-06-2022 Note HNO ID: [id number] Author: Ana Rico MD Service: ? Author Type: Physician Type: Progress Notes Filed: 12/07/2022 10:30 AM Note Text: Radha Barnes 2000 December 06, 2022 HPI: Radha Barnes is a 22 year old female with iron deficiency anemia secondary to ulcerative colitis and menorrhagia. She was referred by Giana Saleh PA-C for evaluation of anemia. She has had bloody bowel movement and lower abdominal pain since 03/2020. Colonoscopy 12/08/2020 demonstrated active pancolitis. Unremarkable EGD. She was started on Mesalamine for ulcerative colitis. On ferrous sulfate 325 mg TID since 10/2020. Lab work on 01/19/21 showed hemoglobin 8.7, MCV 77.2, platelets 574, normal WBC, ferritin 16, transferrin saturation 4%. Received IV Monoferric 02/23/2021, 03/22/2022. No acute complications. Interval History: She presents today for follow-up of iron deficiency anemia. First , 25W+3, NAJMA in 03/18/2023. Off Humira for ulcerative colitis due to . No bloody bowel movements. Takes vitamin supplement. No chest pain, shortness of breath, abdominal pain or vaginal bleeding. 02/11/22: Hgb 13, PLT 452K, ferritin 24.1, iron 32, transferrin saturation 10%. 06/21/22: Hgb 13.4, PLT 350K, ferritin 179, iron 103, TIBC 253, transferrin saturation 40.7%. 08/29/22: Hgb 12.2, Ferritin 144, normal iron+TIBC, B12 295. 12/02/22: Hgb 11, Ferritin 30.4, transferrin sat 10.8%, B12 260. PAST MEDICAL HISTORY Diagnosis Date Anxiety and depression Childhood overweight, BMI 85-94.9 percentile 08/2015 Iron deficiency anemia Iron deficiency anemia due to chronic blood loss 02/09/2021 Menarche 01/2013 PMH - PAST MEDICAL HISTORY OF 10/15/2006 normal color vision depression Ulcerative colitis (HCC) PAST SURGICAL HISTORY Procedure Laterality Date CAPSULE ENDOSCOPY SMALL BOWEL 01/25/2021 COLONOSCOPY GEN ANES 12/08/2020 EGD 12/08/2020 UNLISTED DIAGNOSTIC GASTROENTEROLOGY PROCEDURE 01/25/2021 Current Outpatient Medications Medication Sig Dispense Refill ergocalciferol 50,000 unit capsule (VITAMIN D2, DRISDOL) Take by mouth. metroNIDAZOLE (FLAGYL) 500 mg tablet Take 1 tablet by mouth twice daily for 7 days. 14 tablet 0 clotrimazole-betamethasone (LOTRISONE) cream Apply 1 application to affected area twice daily for 7 days. 15 g 0 pyridoxine, vitamin B6, (VITAMIN B-6) 50 mg tablet Take 1 tablet by mouth once daily. 100 tablet 2 ondansetron (ZOFRAN) 4 mg tablet Take 1 tablet by mouth every 8 hours as needed for nausea/vomiting. 30 tablet 1 prental multivitamin 27 mg iron- 800 mcg tablet Take 1 tablet by mouth once daily. ferrous sulfate 325 mg (65 mg iron) tablet Take 1 tablet by mouth daily with breakfast. 90 tablet 3 No current facility-administered medications for this visit. ALLERGIES No Known Allergies FAMILY HISTORY Problem Relation Age of Onset Hypertension Mother other (gluten intolerance) Mother Hypertension Father Heart Sister murmur as an Heart Maternal Grandmother Diabetes Maternal Grandmother Hypertension Maternal Grandfather Heart Maternal Grandfather 60s other (Bladder cancer) Maternal Grandfather smoker Heart Paternal Grandmother Hypertension Paternal Grandmother Hypertension Paternal Grandfather Heart Paternal Grandfather age 52 [place]; adn MGGF Social History Tobacco Use Smoking status: Never Smokeless tobacco: Never Vaping Use Vaping Use: Never used Substance Use Topics Alcohol use: Not Currently Comment: occasional Drug use: No I have confirmed and edited as necessary, the PFSH and ROS obtained by others on 12/06/2022. Review of Systems: All systems reviewed on 12/06/2022 with pertinent positives and negatives as outlined in HPI or interval history. 12/06/22 1303 BP: 100/68 Pulse: (!) 124 Temp: 36.7 ?C (98.1 ?F) TempSrc: Temporal SpO2: 97% Weight: 68.9 kg (151 lb 12.8 oz) Height: 154.9 cm (5' 1 ) Body mass index is 28.68 kg/m?. Physical Exam: ECOG PS: 0 Pain Intensity: 0 General: Age-appropriate well developed. NAD. HEENT: Normocephalic, no sclera icterus. Neck: Supple. Chest: Clear bilaterally, not labored. Heart: Normal S1 and S2, RRR Abdomen: Soft, nontender, bowel sounds present. Extremities: No edema. Neurological: Grossly intact. Skin: No rashes or jaundice. Psychiatric: Alert and oriented. Appropriate mood and affect. Labs WBC (k/uL) Date Value 12/02/2022 9.99 RBC (m/uL) Date Value 12/02/2022 3.55 (L) Hemoglobin (g/dL) Date Value 12/02/2022 11.0 (L) Hematocrit (%) Date Value 12/02/2022 34.1 (L) MCV (fL) Date Value 12/02/2022 96.1 MCH (pg) Date Value 12/02/2022 31.0 MCHC (g/dL) Date Value 12/02/2022 32.3 RDW-CV (%) Date Value 12/02/2022 13.2 Platelet Count (k/uL) Date Value 12/02/2022 372 MPV (fL) Date Value 12/02/2022 9.7 Glucose (mg/dL) Date Value 10/22/2022 72 (L) (more content not included)... [facility] 12-03-2022 Note HNO ID: [id number] Author: Tania Martinez APRN.ENGINEERING RECRUITER Service: ? Author Type: Nurse Practitioner Type: Progress Notes Filed: 12/03/2022 4:10 PM Note Text: Gas Plant Technician offered: Patient declines. Radha Barnes is a 22 year old female who presents for vaginal pruritis for 1 week(s). Vaginal discharge: none. Itching: YES Dyspareunia: N/A Fever/chills: No Abdominal pain: No Bladder: Negative for dysuria or frequency Bowel: No blood in stool, pain with BM, tarry stool, persistent diarrhea or constipation Any new sexual partners or concern for STD exposure: No Are you currently taking any medications to treat vaginitis: No Do you use feminine sprays, douches or deodorants: No Past medical, surgical, social history, medications and allergies reviewed and updated. OBJECTIVE: BP 102/70 Wt 151 lb 6.4 oz (68.7kg) LMP 06/11/2022 GENERAL: Well developed, well nourished in no apparent distress PELVIC: external genitalia normal, normal Bartholin's glands, urethra, Wartburg's glands, no cervical lesions, good vaginal support, physiologic discharge present, normal appearing perineal body and perianal region, Physical Exam Genitourinary: Genitourinary Comments: Red, scaly, slightly raised rash Right Labia: rash. Left Labia: rash. ASSESSMENT/PLAN: 1. Vaginal itching - ICD9: 698.1, ICD10: N89.8 Will notify patient of test results. - BACTERIAL VAGINOSIS NAAT - GILBERT/TRICHOMONAS NAAT Lotrisone cream ordered Tania Martinez APRN.CNP Medical Decision Making: Problems: Low: Acute, uncomplicated illness or injury Data: Unique test(s) ordered: 2 Risk: Low: Low risk from testing/treatment Moderate: Drug management Medical Decision Making Level: 3 - Low [facility] 12-02-2022 Note HNO ID: [id number] Author: Em Mejias APRN.MAURILIO Service: ? Author Type: Nurse Practitioner Type: Progress Notes Filed: 12/02/2022 3:59 PM Note Text: This note was created using [employer]. Subjective Radha Barnes is a 22 year old female. 22 year old female with PMH ulcerative colitis and anemia presents for female complaints. Acute onset of symptoms was one week ago +itching of vaginal region +discomfort Burning around the pee hole But denies pain with urinating Denies vaginal discharge. Denies vaginal bleeding Denies abdominal pain or cramping. Denies fever or chills. Of note, she is 24 weeks () and under the care of Dr. Barrett Has obtained care. The history is provided by the patient. No net solutions architect was used. Vaginal Problem This is a new problem. The current episode started in the past 7 days. The problem occurs constantly. The problem has been unchanged. Associated symptoms include nausea. Pertinent negatives include no abdominal pain, chest pain, chills, congestion, coughing, fever, headaches, rash, urinary symptoms, vomiting or weakness. Nothing aggravates the symptoms. She has tried nothing for the symptoms. The treatment provided no relief. PAST MEDICAL HISTORY Diagnosis Date Anxiety and depression Childhood overweight, BMI 85-94.9 percentile 08/2015 Iron deficiency anemia Iron deficiency anemia due to chronic blood loss 02/09/2021 Menarche 01/2013 PMH - PAST MEDICAL HISTORY OF 10/15/2006 normal color vision depression Ulcerative colitis (HCC) PAST SURGICAL HISTORY Procedure Laterality Date CAPSULE ENDOSCOPY SMALL BOWEL 01/25/2021 COLONOSCOPY GEN ANES 12/08/2020 EGD 12/08/2020 UNLISTED DIAGNOSTIC GASTROENTEROLOGY PROCEDURE 01/25/2021 ALLERGIES Patient has no known allergies. MEDICATIONS pyridoxine, vitamin B6, (VITAMIN B-6) 50 mg tablet Take 1 tablet by mouth once daily. ondansetron (ZOFRAN) 4 mg tablet Take 1 tablet by mouth every 8 hours as needed for nausea/vomiting. prental multivitamin 27 mg iron- 800 mcg tablet Take 1 tablet by mouth once daily. ferrous sulfate 325 mg (65 mg iron) tablet Take 1 tablet by mouth daily with breakfast. nystatin (MYCOSTATIN) cream Apply to affected area twice daily. FAMILY HISTORY Problem Relation Age of Onset Hypertension Mother other (gluten intolerance) Mother Hypertension Father Heart Sister murmur as an Heart Maternal Grandmother Diabetes Maternal Grandmother Hypertension Maternal Grandfather Heart Maternal Grandfather 60s other (Bladder cancer) Maternal Grandfather smoker Heart Paternal Grandmother Hypertension Paternal Grandmother Hypertension Paternal Grandfather Heart Paternal Grandfather age 52 [place]; adn MGGF Social History Tobacco Use Smoking status: Never Smokeless tobacco: Never Vaping Use Vaping Use: Never used Substance Use Topics Alcohol use: Not Currently Comment: occasional Drug use: No Review of Systems Constitutional: Negative for activity change, appetite change, chills and fever. HENT: Negative for congestion. Eyes: Negative for pain, discharge and itching. Respiratory: Negative for apnea, cough, choking and chest tightness. Cardiovascular: Negative for chest pain, palpitations and leg swelling. Gastrointestinal: Positive for nausea. Negative for abdominal pain and vomiting. Genitourinary: Negative for vaginal discharge. Vaginal burning. Vaginal discharge Skin: Negative for rash. Neurological: Negative for dizziness, facial asymmetry, weakness, light-headedness and headaches. Hematological: Negative for adenopathy. Does not bruise/bleed easily. Objective BP 122/62 Pulse 102 Temp 36.5 ?C (97.7 ?F) Resp 16 Wt 68.5 kg (151 lb) LMP 06/11/2022 (Exact Date) SpO2 100% BMI 28.53 kg/m? Physical Exam Vitals and nursing note reviewed. Constitutional: General: She is not in acute distress. Appearance: Normal appearance. She is normal weight. She is not ill-appearing, toxic-appearing or diaphoretic. HENT: Head: Normocephalic and atraumatic. Right Ear: Ear canal and external ear normal. Left Ear: Ear canal and external ear normal. Nose: Nose normal. No congestion or rhinorrhea. Mouth/Throat: Mouth: Mucous membranes are moist. Pharynx: No oropharyngeal exudate or posterior oropharyngeal erythema. Eyes: General: Right eye: No discharge. Left eye: No discharge. Extraocular Movements: Extraocular movements intact. Conjunctiva/sclera: Conjunctivae normal. Pupils: Pupils are equal, round, and reactive to light. Cardiovascular: Rate and Rhythm: Normal rate and regular rhythm. Pulses: Normal pulses. Heart sounds: Normal heart sounds. No murmur heard. No friction rub. Pulmonary: Effort: Pulmonary effort is normal. No respiratory distress. Breath sounds: Normal breath sounds. No stridor. No wheezing, rhonchi or r (more content not included)... [facility] 12-02-2022 History of Presen t illness Narrative This note was created using [employer]. Subjective Radha Barnes is a 22 year old female. 22 year old female with PMH ulcerative colitis and anemia presents for female complaints. Acute onset of symptoms was one week ago +itching of vaginal region +discomfort Burning around the pee hole But denies pain with urinating Denies vaginal discharge. Denies vaginal bleeding Denies abdominal pain or cramping. Denies fever or chills. Of note, she is 24 weeks () and under the care of Dr. Barrett Has obtained care. The history is provided by the patient. No net solutions architect was used. Vaginal Problem This is a new problem. The current episode started in the past 7 days. The problem occurs constantly. The problem has been unchanged. Associated symptoms include nausea. Pertinent negatives include no abdominal pain, chest pain, chills, congestion, coughing, fever, headaches, rash, urinary symptoms, vomiting or weakness. Nothing aggravates the symptoms. She has tried nothing for the symptoms. The treatment provided no relief. PAST MEDICAL HISTORY Diagnosis Date Anxiety and depression Childhood overweight, BMI 85-94.9 percentile 08/2015 Iron deficiency anemia Iron deficiency anemia due to chronic blood loss 02/09/2021 Menarche 01/2013 PMH - PAST MEDICAL HISTORY OF 10/15/2006 normal color vision depression Ulcerative colitis (HCC) PAST SURGICAL HISTORY Procedure Laterality Date CAPSULE ENDOSCOPY SMALL BOWEL 01/25/2021 COLONOSCOPY GEN ANES 12/08/2020 EGD 12/08/2020 UNLISTED DIAGNOSTIC GASTROENTEROLOGY PROCEDURE 01/25/2021 ALLERGIES Patient has no known allergies. MEDICATIONS pyridoxine, vitamin B6, (VITAMIN B-6) 50 mg tablet Take 1 tablet by mouth once daily. ondansetron (ZOFRAN) 4 mg tablet Take 1 tablet by mouth every 8 hours as needed for nausea/vomiting. prental multivitamin 27 mg iron- 800 mcg tablet Take 1 tablet by mouth once daily. ferrous sulfate 325 mg (65 mg iron) tablet Take 1 tablet by mouth daily with breakfast. nystatin (MYCOSTATIN) cream Apply to affected area twice daily. FAMILY HISTORY Problem Relation Age of Onset Hypertension Mother other (gluten intolerance) Mother Hypertension Father Heart Sister murmur as an infant Heart Maternal Grandmother Diabetes Maternal Grandmother Hypertension Maternal Grandfather Heart Maternal Grandfather 60s other (Bladder cancer) Maternal Grandfather smoker Heart Paternal Grandmother Hypertension Paternal Grandmother Hypertension Paternal Grandfather Heart Paternal Grandfather age 52 [place]; adn MGGF Social History Tobacco Use Smoking status: Never Smokeless tobacco: Never Vaping Use Vaping Use: Never used Substance Use Topics Alcohol use: Not Currently Comment: occasional Drug use: No Review of Systems Constitutional: Negative for activity change, appetite change, chills and fever. HENT: Negative for congestion. Eyes: Negative for pain, discharge and itching. Respiratory: Negative for apnea, cough, choking and chest tightness. Cardiovascular: Negative for chest pain, palpitations and leg swelling. Gastrointestinal: Positive for nausea. Negative for abdominal pain and vomiting. Genitourinary: Negative for vaginal discharge. Vaginal burning. Vaginal discharge Skin: Negative for rash. Neurological: Negative for dizziness, facial asymmetry, weakness, light-headedness and headaches. Hematological: Negative for adenopathy. Does not bruise/bleed easily. Objective BP 122/62 Pulse 102 Temp 36.5 C (97.7 F) Resp 16 Wt 68.5 kg (151 lb) LMP 06/11/2022 (Exact Date) SpO2 100% BMI 28.53 kg/m Physical Exam Vitals and nursing note reviewed. Constitutional: General: She is not in acute distress. Appearance: Normal appearance. She is normal weight. She is not ill-appearing, toxic-appearing or diaphoretic. HENT: Head: Normocephalic and atraumatic. Right Ear: Ear canal and external ear normal. Left Ear: Ear canal and external ear normal. Nose: Nose normal. No congestion or rhinorrhea. Mouth/Throat: Mouth: Mucous membranes are moist. Pharynx: No oropharyngeal exudate or posterior oropharyngeal erythema. Eyes: General: Right eye: No discharge. Left eye: No discharge. Extraocular Movements: Extraocular movements intact. Conjunctiva/sclera: Conjunctivae normal. Pupils: Pupils are equal, round, and reactive to light. Cardiovascular: Rate and Rhythm: Normal rate and regular rhythm. Pulses: Normal pulses. Heart sounds: Normal heart sounds. No murmur heard. No friction rub. Pulmonary: Effort: Pulmonary effort is normal. No respiratory distress. Breath sounds: Normal breath sounds. No stridor. No wheezing, rhonchi or rales. Chest: Chest wall: No tenderness. Abdominal: General: Abdomen is flat. There is no distension. Palpations: Abdomen is soft. There is no mass. Tenderness: There is no abdominal tenderness. There is no right CVA tenderness, left CVA tenderness, guarding or rebound. Hernia: No hernia is present. Musculoskeletal: General: No swelling, tenderness, deformity or signs of injury. Normal range of motion. Cervical back: Normal range of motion and neck supple. No rigidity. Right lower leg: No edema. Left lower leg: No edema. Lymphadenopathy: Cervical: No cervical adenopathy. Skin: General: Skin is warm and dry. Capillary Refill: Capillary refill takes less than 2 seconds. Coloration: Skin is not jaundiced or pale. Findings: No bruising, erythema, lesion or rash. Neurological: General: No focal deficit present. Mental Status: She is alert and oriented to person, place, and time. Cranial Nerves: No cranial nerve deficit. Sensory: No sensory deficit. Motor: No weakness. Coordination: Coordination normal. Gait: Gait normal. Psychiatric: Mood and Affect: Mood normal. Behavior: Behavior normal. Thought Content: Thought content normal. Judgment: Judgment normal. Assessment and Plan ASSESSMENT/PLAN: 1. Vaginal discomfort - ICD9: 625.9, ICD10: N94.9 (primary diagnosis) X 7 days Urine dip negative Will send urine culture Discussed with patient that express care does not perform pelvic exams on patients greater than 24 weeks Have made an appt with her business planning director for 4 pm tomorrow Discussed red flags and reasons to seek ED. - UA DIP, URINE (POC) - URINE CULTURE 2. Vaginal itching - ICD9: 698.1, ICD10: N89.8 X 7 days Urine dip negative Will send urine culture Discussed with patient that express care does not perform pelvic exams on patients greater than 24 weeks Have made an appt with her business planning director for 4 pm tomorrow Discussed red flags and reasons to seek ED. Em Mejias APRN.ENGINEERING RECRUITER documented in this encounter [facility] 11-29-2022 Miscellaneous Notes SW- Pt doing well. No ctx, pain, vb, lof. Good FM PE: Gen- NAD, well appearing Abd- Soft, gravid, NT Ext- No edema See flowsheet A/p 25 wk gestation - 28 wk labs ordered - Flu vaccine given - Rh negative: Will need Rhogam - RTO 4 wks Ayanna Blanco DO documented in this encounter [facility] 11-29-2022 Instructions Britany Min MA - 11/29/2022 3:10 PM EDT SEQUENTIAL SCREENINGS The [facility] offers sequential screenings for women who are interested in screenings for chromosomal abnormalities and certain defects during a . The sequential screen combines ultrasound and blood tests to determine the risk of chromosomal abnormalities, including Down's Syndrome (Trisomy 21) and Trisomy 18, as well as open neural tube defects including spina bifida. Ultrasound examination is performed between 11 weeks and 13 weeks gestational age. Blood tests are drawn after the ultrasound and again later in the between 15 and 21 weeks gestational age. Please let your physician know if you are interested in this testing. It will require an appointment with our mammography technician. This is not an ultrasound performed by a physician in our office during a routine visit. SIGNS AND SYMPTOMS OF LABOR 1. Contractions every 10 minutes or more often 2. Clear, pink, or brownish fluid (water) leaking from vagina 3. Feeling that baby is pushing down, pressure 4. Low, dull backache 5. Cramps that feel like a period 6. Cramps with or without diarrhea If you notice any of the above symptoms, contact our office at [phone] and ask to speak with a nurse. After hours, you can call doctors registry at [phone] OR call [facility] at [phone] and ask to have the doctor television maintenance worker paged. If you consider this an emergency, dial [phone]--1 or go to your nearest emergency department. NEED HELP? Are you dealing with a violent or abusive relationship? Are you a victim of rape or sexual assult? Call [facility] ([place]) 24 hour Crisis Hotline: 544.535.9022 or 133-269-8984. MANUAL Your Guide to a Healthy manual is now on-line. Visit [email or web address] to download your free copy documented in this encounter [facility] 11-05-2022 Miscellaneous Notes Done Also please let her know that recommends a growth US at 32 and 36 weeks, as well as recommend GI follow up scheduled . Thanks! Laureano Fajardo MD Please file f/u anatomy u/s order to attach to appointment. Cassie Ewing RN ----- Message from Laureano Fajardo MD sent at 11/05/2022 10:34 AM EDT ----- Follow up is scheduled Laureano Fajardo MD documented in this encounter [facility] 10-31-2022 Miscellaneous Notes 2nd risk assessment form submitted 10/31/2022. 20w2d today documented in this encounter [facility] 10-23-2022 Note HNO ID: [id number] Author: Garrett Castellanos MD Service: Cardiovascular Surgery Author Type: Physician Type: Procedures Filed: 11/19/2022 4:00 PM Note Text: Patient Name: Radha Barnes : 2000 Ordering Provider: MARJORIE NAZARIO Indication: R00.2 Palpitations Type of Monitor: Extended Monitoring-Zio Patch Enrollment Dates: 10/25/2022-11/07/2022 [facility] 10-22-2022 Note HNO ID: [id number] Author: Marjorie Nazario APRN.ENGINEERING RECRUITER Service: ? Author Type: Nurse Practitioner Type: Progress Notes Filed: 10/22/2022 11:23 AM Note Text: CC: Patient presents with: ED Follow-up HPI Radha Barnes is a 22 year old female who presents today for above, she is 19 weeks . Patient presented to [facility] ER on 10/14 with chest pain, palpitations and SOB. Labs were normal except D-dimer elevated. Chest x-ray, CTA chest, echocardiogram normal. EKG showed sinus tachycardia, otherwise normal. She had also reported cough and sore throat that started that day, chest pain assumed to be pleuritic in nature. Today patientp reports symptoms have all resolved except for palpitations. No new or worsening symptoms. Palpitations occur randomly, described as heart racing. Resolves quickly on its own. Denies any associated symptoms. REVIEW OF SYSTEMS General: no fevers, no chills, no night sweats Respiratory: no cough, no wheezing, no shortness of breath, no hemoptysis Cardiovascular: no chest pain, no chest pressure, no PND, no orthopnea, no swelling, and no decrease in exercise tolerance Psych: Negative for anxiety or increase in stress Endocrine: no constipation, no diarrhea, no tremors, no weight gain, no weight loss, no hair loss, no dry skin, no cold intolerance, no heat intolerance, no trouble swallowing, and no neck pain/pressure Neurologic: no dizziness, lightheadedness, feeling faint, syncope, confusion, disorientation, numbness/tingling, weakness, tremor, difficulty with coordination/balance, slurred speech, facial drooping PAST MEDICAL HISTORY Diagnosis Date Anxiety and depression Childhood overweight, BMI 85-94.9 percentile 08/2015 Iron deficiency anemia Iron deficiency anemia due to chronic blood loss 02/09/2021 Menarche 01/2013 PMH - PAST MEDICAL HISTORY OF 10/15/2006 normal color vision depression Ulcerative colitis (HCC) PAST SURGICAL HISTORY Procedure Laterality Date CAPSULE ENDOSCOPY SMALL BOWEL 01/25/2021 COLONOSCOPY GEN ANES 12/08/2020 EGD 12/08/2020 UNLISTED DIAGNOSTIC GASTROENTEROLOGY PROCEDURE 01/25/2021 ALLERGIES Patient has no known allergies. MEDICATIONS adalimumab 40 mg/0.4 mL subcutaneous pen kit (HUMIRA (CF)) Inject 40 mg subcutaneously every 2 weeks. pyridoxine, vitamin B6, (VITAMIN B-6) 50 mg tablet Take 1 tablet by mouth once daily. ondansetron (ZOFRAN) 4 mg tablet Take 1 tablet by mouth every 8 hours as needed for nausea/vomiting. prental multivitamin 27 mg iron- 800 mcg tablet Take 1 tablet by mouth once daily. ferrous sulfate 325 mg (65 mg iron) tablet Take 1 tablet by mouth daily with breakfast. FAMILY HISTORY Problem Relation Age of Onset Hypertension Mother other (gluten intolerance) Mother Hypertension Father Heart Sister murmur as an Heart Maternal Grandmother Diabetes Maternal Grandmother Hypertension Maternal Grandfather Heart Maternal Grandfather 60s other (Bladder cancer) Maternal Grandfather smoker Heart Paternal Grandmother Hypertension Paternal Grandmother Hypertension Paternal Grandfather Heart Paternal Grandfather age 52 [place]; adn MGGF Social History Tobacco Use Smoking status: Never Smokeless tobacco: Never Vaping Use Vaping Use: Never used Substance Use Topics Alcohol use: Not Currently Comment: occasional Drug use: No PHYSICAL EXAM BP 124/68 Pulse 120 Resp 18 Wt 63.5 kg (140 lb) LMP 06/11/2022 (Exact Date) BMI 26.45 kg/m? General Appearance: well appearing, in no acute distress, alert Skin: Skin color, texture, turgor normal for age; Eyes: conjunctiva pink and moist, no icterus, sclera white, non-injected Neck: Thyroid normal size and symmetric without palpable nodules, Neck supple, No adenopathy Lungs: Lungs clear to auscultation. No wheezing, rhonchi, rales. Heart: Tachycardic, RR without murmur, gallop, or rubs. No ectopy Ext: no edema in LE bilaterally, good distal pulses DATA REVIEWED: Outside chart from [facility] ER reviewed. ASSESSMENT/PLAN: 1. Tachycardia - ICD9: 785.0, ICD10: R00.0 (primary diagnosis) Possibly related. No alarm symptoms or exam findings. - check TSH BLD today - if TSH normal will order ZIO heart monitor x 1 week - follow-up pending results 2. Palpitations - ICD9: 785.1, ICD10: R00.2 As above - TSH BLD 3. Chest pain, unspecified type - ICD9: 786.50, ICD10: R07.9 resolved 4. Shortness of breath - ICD9: 786.05, ICD10: R06.02 Resolved Prescription instructions reviewed with patient as applicable. Potential red flag symptoms discussed with the patient. Reviewed appropriate action plan to take if red flag symptoms occur. Patient agreeable to treatment plan. Marjorie Nazario APRN.[facility] 10-22-2022 History of Presen t illness Narrative CC: Patient presents with: ED Follow-up HPI Radha Christ Barnes is a 22 year old female who presents today for above, she is 19 weeks . Patient presented to [facility] ER on 10/14 with chest pain, palpitations and SOB. Labs were normal except D-dimer elevated. Chest x-ray, CTA chest, echocardiogram normal. EKG showed sinus tachycardia, otherwise normal. She had also reported cough and sore throat that started that day, chest pain assumed to be pleuritic in nature. Today patientp reports symptoms have all resolved except for palpitations. No new or worsening symptoms. Palpitations occur randomly, described as heart racing. Resolves quickly on its own. Denies any associated symptoms. REVIEW OF SYSTEMS General: no fevers, no chills, no night sweats Respiratory: no cough, no wheezing, no shortness of breath, no hemoptysis Cardiovascular: no chest pain, no chest pressure, no PND, no orthopnea, no swelling, and no decrease in exercise tolerance Psych: Negative for anxiety or increase in stress Endocrine: no constipation, no diarrhea, no tremors, no weight gain, no weight loss, no hair loss, no dry skin, no cold intolerance, no heat intolerance, no trouble swallowing, and no neck pain/pressure Neurologic: no dizziness, lightheadedness, feeling faint, syncope, confusion, disorientation, numbness/tingling, weakness, tremor, difficulty with coordination/balance, slurred speech, facial drooping PAST MEDICAL HISTORY Diagnosis Date Anxiety and depression Childhood overweight, BMI 85-94.9 percentile 08/2015 Iron deficiency anemia Iron deficiency anemia due to chronic blood loss 02/09/2021 Menarche 01/2013 PMH - PAST MEDICAL HISTORY OF 10/15/2006 normal color vision depression Ulcerative colitis (HCC) PAST SURGICAL HISTORY Procedure Laterality Date CAPSULE ENDOSCOPY SMALL BOWEL 01/25/2021 COLONOSCOPY GEN ANES 12/08/2020 EGD 12/08/2020 UNLISTED DIAGNOSTIC GASTROENTEROLOGY PROCEDURE 01/25/2021 ALLERGIES Patient has no known allergies. MEDICATIONS adalimumab 40 mg/0.4 mL subcutaneous pen kit (HUMIRA (CF)) Inject 40 mg subcutaneously every 2 weeks. pyridoxine, vitamin B6, (VITAMIN B-6) 50 mg tablet Take 1 tablet by mouth once daily. ondansetron (ZOFRAN) 4 mg tablet Take 1 tablet by mouth every 8 hours as needed for nausea/vomiting. prental multivitamin 27 mg iron- 800 mcg tablet Take 1 tablet by mouth once daily. ferrous sulfate 325 mg (65 mg iron) tablet Take 1 tablet by mouth daily with breakfast. FAMILY HISTORY Problem Relation Age of Onset Hypertension Mother other (gluten intolerance) Mother Hypertension Father Heart Sister murmur as an infant Heart Maternal Grandmother Diabetes Maternal Grandmother Hypertension Maternal Grandfather Heart Maternal Grandfather 60s other (Bladder cancer) Maternal Grandfather smoker Heart Paternal Grandmother Hypertension Paternal Grandmother Hypertension Paternal Grandfather Heart Paternal Grandfather age 52 [place]; adn MGGF Social History Tobacco Use Smoking status: Never Smokeless tobacco: Never Vaping Use Vaping Use: Never used Substance Use Topics Alcohol use: Not Currently Comment: occasional Drug use: No PHYSICAL EXAM BP 124/68 Pulse 120 Resp 18 Wt 63.5 kg (140 lb) LMP 06/11/2022 (Exact Date) BMI 26.45 kg/m General Appearance: well appearing, in no acute distress, alert Skin: Skin color, texture, turgor normal for age; Eyes: conjunctiva pink and moist, no icterus, sclera white, non-injected Neck: Thyroid normal size and symmetric without palpable nodules, Neck supple, No adenopathy Lungs: Lungs clear to auscultation. No wheezing, rhonchi, rales. Heart: Tachycardic, RR without murmur, gallop, or rubs. No ectopy Ext: no edema in LE bilaterally, good distal pulses DATA REVIEWED: Outside chart from [facility] ER reviewed. ASSESSMENT/PLAN: 1. Tachycardia - ICD9: 785.0, ICD10: R00.0 (primary diagnosis) Possibly related. No alarm symptoms or exam findings. - check TSH BLD today - if TSH normal will order ZIO heart monitor x 1 week - follow-up pending results 2. Palpitations - ICD9: 785.1, ICD10: R00.2 As above - TSH BLD 3. Chest pain, unspecified type - ICD9: 786.50, ICD10: R07.9 resolved 4. Shortness of breath - ICD9: 786.05, ICD10: R06.02 Resolved Prescription instructions reviewed with patient as applicable. Potential red flag symptoms discussed with the patient. Reviewed appropriate action plan to take if red flag symptoms occur. Patient agreeable to treatment plan. Marjorie Nazario APRN.CNP documented in this encounter [facility] 10-14-2022 Note HNO ID: [id number] Author: Tanner Childs APRN.CNP Service: ? Author Type: Nurse Practitioner Type: Progress Notes Filed: 10/14/2022 11:19 AM Note Text: Patient triaged at [facility]. Here today with worsening chest pain /10, worsens with activity. Denies uri symptoms. In on apparent distress. I will refer to lianna MANJARREZ. [facility] 10-14-2022 History of Presen t illness Narrative Patient triaged at [facility]. Here today with worsening chest pain 7/10, worsens with activity. Denies uri symptoms. In on apparent distress. I will refer to lianna MANJARREZ. documented in this encounter [facility] 10-11-2022 Miscellaneous Notes Approval through both her primary/[place], and medicaid secondary, to fill through [facility] Requested Prescriptions Pending Prescriptions Disp Refills adalimumab 40 mg/0.4 mL subcutaneous pen kit (HUMIRA (CF)) 1 Kit 11 Sig: Inject 40 mg subcutaneously every 2 weeks. Mary Pozo CMA documented in this encounter [facility] 10-02-2022 Note HNO ID: [id number] Author: Giana Saleh PA-C Service: ? Author Type: Physician Hide Stretcher Hand Type: Progress Notes Filed: 10/02/2022 3:27 PM Note Text: CHIEF COMPLAINT: Patient presents with: Ulcerative pancolitis: Colon not done HPI Radha Barnes is a 22 year old female here today for Ulcerative pancolitis (Colon not done). Dx with ulcerative pancolitis 12/08/2020. Was having minimal improvement in inflammatory levels with mesalamine, so advised switch to Humira. Started injections 10/12/2021 and clinically felt well. Recent addison 05/2022 significantly elevated, prescribed course of prednisone, C. Diff neg. Advised to obtain updated colonoscopy last OV 06/2022 but pt could not obtain as she found out she was . Has been off of Humira since 07/2022 (pt stopped men on her own after discovering ). Bms are currently 1-2x per day, formed consistency, no bleeding since she found out she was . Component Latest Ref Rng AND Units 08/29/2022 09/03/2022 WBC 3.70 - 11.00 k/uL 8.30 8.21 RBC 3.90 - 5.20 m/uL 4.01 4.15 Hemoglobin 11.5 - 15.5 g/dL 12.2 12.9 Hematocrit 36.0 - 46.0 % 36.8 36.8 MCV 80.0 - 100.0 fL 91.8 88.7 MCH 26.0 - 34.0 pg 30.4 31.1 MCHC 30.5 - 36.0 g/dL 33.2 35.1 RDW-CV 11.5 - 15.0 % 12.6 12.8 Platelet Count 150 - 400 k/uL 343 345 MPV 9.0 - 12.7 fL 10.3 9.6 Neut% % 70.4 Abs Neut (ANC) 1.45 - 7.50 k/uL 5.85 Lymph% % 21.0 Abs Lymph 1.00 - 4.00 k/uL 1.74 Labette% % 7.3 Abs Labette <0.87 k/uL 0.61 Eosin% % 0.4 Abs Eosin <0.46 k/uL 0.03 Baso% % 0.5 Abs Baso <0.11 k/uL 0.04 Immature Gran % % 0.4 IMMATURE GRANS (ABS) <0.10 k/uL 0.03 NRBC /100 WBC 0.0 Absolute nRBC <0.01 k/uL <0.01 <0.01 DTYPE Auto Iron 41 - 186 ug/dL 89 TIBC 232 - 386 ug/dL 275 Transferrin Saturation 15.0 - 57.0 % 32.4 Ferritin 14.7 - 205.1 ng/mL 144.0 Vitamin B12 232 - 1,245 pg/mL 295 OV 06/2022 Radha Barnes is a 22 year old female here today for Recheck (No concerns. Stool 05/31/22). Dx with ulcerative pancolitis 12/08/2020. Was having minimal improvement in inflammatory levels with mesalamine, so advised switch to Humira. Started injections 10/12/2021 and clinically felt well. Recent addison 05/2022 significantly elevated, prescribed course of prednisone, C. Diff neg. Bms are currently 2-3 per day, formed consistency, no blood. Reports prior to prednisone she was having more regular mushy/loose stools. Admits to increase in her stress lately and recent stomach bug. Denies abd. Current Outpatient Medications Medication Sig pyridoxine, vitamin B6, (VITAMIN B-6) 50 mg tablet Take 1 tablet by mouth once daily. ondansetron (ZOFRAN) 4 mg tablet Take 1 tablet by mouth every 8 hours as needed for nausea/vomiting. prental multivitamin 27 mg iron- 800 mcg tablet Take 1 tablet by mouth once daily. ferrous sulfate 325 mg (65 mg iron) tablet Take 1 tablet by mouth daily with breakfast. No current facility-administered medications for this visit. ALLERGIES No Known Allergies Social History Tobacco Use Smoking status: Never Smokeless tobacco: Never Vaping Use Vaping Use: Never used Substance Use Topics Alcohol use: Not Currently Comment: occasional Drug use: No PAST MEDICAL HISTORY Diagnosis Date Anxiety and depression Childhood overweight, BMI 85-94.9 percentile 08/2015 Iron deficiency anemia Iron deficiency anemia due to chronic blood loss 02/09/2021 Menarche 01/2013 PMH - PAST MEDICAL HISTORY OF 10/15/2006 normal color vision depression Ulcerative colitis (HCC) PAST SURGICAL HISTORY Procedure Laterality Date CAPSULE ENDOSCOPY SMALL BOWEL 01/25/2021 COLONOSCOPY GEN ANES 12/08/2020 EGD 12/08/2020 UNLISTED DIAGNOSTIC GASTROENTEROLOGY PROCEDURE 01/25/2021 FAMILY HISTORY Problem Relation Age of Onset Hypertension Mother other (gluten intolerance) Mother Hypertension Father Heart Sister murmur as an Heart Maternal Grandmother Diabetes Maternal Grandmother Hypertension Maternal Grandfather Heart Maternal Grandfather 60s other (Bladder cancer) Maternal Grandfather smoker Heart Paternal Grandmother Hypertension Paternal Grandmother Hypertension Paternal Grandfather Heart Paternal Grandfather age 52 [place]; adn MGGF REVIEW OF SYSTEMS Review of Systems All other systems reviewed and are negative. PHYSICAL EXAM BP 112/72 Pulse 90 Ht 154.9 cm (5' 1 ) Wt 63 kg (139 lb) LMP 06/11/2022 (Exact Date) BMI 26.26 kg/m? Physical Exam Constitutional: General: She is not in acute distress. Appearance: Normal appearance. She is normal weight. She is not ill-appearing, toxic-appearing or diaphoretic. HENT: Head: Normocephalic and atraumatic. Nose: Nose normal. Eyes: General: No scleral icterus. Right eye: No discharge. Left eye: No discharge. Extraocular Movements: Extraocular movements intact. Conjunctiva/sclera: Conjunctivae normal. Pupils: Pupils a (more content not included)... [facility] 10-02-2022 History of Presen t illness Narrative CHIEF COMPLAINT: Patient presents with: Ulcerative pancolitis: Colon not done HPI Radha Barnes is a 22 year old female here today for Ulcerative pancolitis (Colon not done). Dx with ulcerative pancolitis 12/08/2020. Was having minimal improvement in inflammatory levels with mesalamine, so advised switch to Humira. Started injections 10/12/2021 and clinically felt well. Recent addison 05/2022 significantly elevated, prescribed course of prednisone, C. Diff neg. Advised to obtain updated colonoscopy last OV 06/2022 but pt could not obtain as she found out she was . Has been off of Humira since 07/2022 (pt stopped men on her own after discovering ). Bms are currently 1-2x per day, formed consistency, no bleeding since she found out she was . Component Latest Ref Rng & Units 08/29/2022 09/03/2022 WBC 3.70 - 11.00 k/uL 8.30 8.21 RBC 3.90 - 5.20 m/uL 4.01 4.15 Hemoglobin 11.5 - 15.5 g/dL 12.2 12.9 Hematocrit 36.0 - 46.0 % 36.8 36.8 MCV 80.0 - 100.0 fL 91.8 88.7 MCH 26.0 - 34.0 pg 30.4 31.1 MCHC 30.5 - 36.0 g/dL 33.2 35.1 RDW-CV 11.5 - 15.0 % 12.6 12.8 Platelet Count 150 - 400 k/uL 343 345 MPV 9.0 - 12.7 fL 10.3 9.6 Neut% % 70.4 Abs Neut (ANC) 1.45 - 7.50 k/uL 5.85 Lymph% % 21.0 Abs Lymph 1.00 - 4.00 k/uL 1.74 Labette% % 7.3 Abs Labette <0.87 k/uL 0.61 Eosin% % 0.4 Abs Eosin <0.46 k/uL 0.03 Baso% % 0.5 Abs Baso <0.11 k/uL 0.04 Immature Gran % % 0.4 IMMATURE GRANS (ABS) <0.10 k/uL 0.03 NRBC /100 WBC 0.0 Absolute nRBC <0.01 k/uL <0.01 <0.01 DTYPE Auto Iron 41 - 186 ug/dL 89 TIBC 232 - 386 ug/dL 275 Transferrin Saturation 15.0 - 57.0 % 32.4 Ferritin 14.7 - 205.1 ng/mL 144.0 Vitamin B12 232 - 1,245 pg/mL 295 OV 06/2022 Radha Polo Cameron is a 22 year old female here today for Recheck (No concerns. Stool 05/31/22). Dx with ulcerative pancolitis 12/08/2020. Was having minimal improvement in inflammatory levels with mesalamine, so advised switch to Humira. Started injections 10/12/2021 and clinically felt well. Recent addison 05/2022 significantly elevated, prescribed course of prednisone, C. Diff neg. Bms are currently 2-3 per day, formed consistency, no blood. Reports prior to prednisone she was having more regular mushy/loose stools. Admits to increase in her stress lately and recent stomach bug. Denies abd. Current Outpatient Medications Medication Sig pyridoxine, vitamin B6, (VITAMIN B-6) 50 mg tablet Take 1 tablet by mouth once daily. ondansetron (ZOFRAN) 4 mg tablet Take 1 tablet by mouth every 8 hours as needed for nausea/vomiting. prental multivitamin 27 mg iron- 800 mcg tablet Take 1 tablet by mouth once daily. ferrous sulfate 325 mg (65 mg iron) tablet Take 1 tablet by mouth daily with breakfast. No current facility-administered medications for this visit. ALLERGIES No Known Allergies Social History Tobacco Use Smoking status: Never Smokeless tobacco: Never Vaping Use Vaping Use: Never used Substance Use Topics Alcohol use: Not Currently Comment: occasional Drug use: No PAST MEDICAL HISTORY Diagnosis Date Anxiety and depression Childhood overweight, BMI 85-94.9 percentile 08/2015 Iron deficiency anemia Iron deficiency anemia due to chronic blood loss 02/09/2021 Menarche 01/2013 PMH - PAST MEDICAL HISTORY OF 10/15/2006 normal color vision depression Ulcerative colitis (HCC) PAST SURGICAL HISTORY Procedure Laterality Date CAPSULE ENDOSCOPY SMALL BOWEL 01/25/2021 COLONOSCOPY GEN ANES 12/08/2020 EGD 12/08/2020 UNLISTED DIAGNOSTIC GASTROENTEROLOGY PROCEDURE 01/25/2021 FAMILY HISTORY Problem Relation Age of Onset Hypertension Mother other (gluten intolerance) Mother Hypertension Father Heart Sister murmur as an Heart Maternal Grandmother Diabetes Maternal Grandmother Hypertension Maternal Grandfather Heart Maternal Grandfather 60s other (Bladder cancer) Maternal Grandfather smoker Heart Paternal Grandmother Hypertension Paternal Grandmother Hypertension Paternal Grandfather Heart Paternal Grandfather age 52 [place]; adn MGGF REVIEW OF SYSTEMS Review of Systems All other systems reviewed and are negative. PHYSICAL EXAM BP 112/72 Pulse 90 Ht 154.9 cm (5' 1 ) Wt 63 kg (139 lb) LMP 06/11/2022 (Exact Date) BMI 26.26 kg/m Physical Exam Constitutional: General: She is not in acute distress. Appearance: Normal appearance. She is normal weight. She is not ill-appearing, toxic-appearing or diaphoretic. HENT: Head: Normocephalic and atraumatic. Nose: Nose normal. Eyes: General: No scleral icterus. Right eye: No discharge. Left eye: No discharge. Extraocular Movements: Extraocular movements intact. Conjunctiva/sclera: Conjunctivae normal. Pupils: Pupils are equal, round, and reactive to light. Cardiovascular: Rate and Rhythm: Normal rate and regular rhythm. Pulses: Normal pulses. Heart sounds: Normal heart sounds. No murmur heard. No friction rub. No gallop. Pulmonary: Effort: No respiratory distress. Breath sounds: Normal breath sounds. No stridor. No wheezing, rhonchi or rales. Chest: Chest wall: No tenderness. Abdominal: General: Abdomen is flat. Bowel sounds are normal. There is no distension. Palpations: Abdomen is soft. There is no mass. Tenderness: There is no abdominal tenderness. There is no right CVA tenderness, left CVA tenderness, guarding or rebound. Hernia: No hernia is present. Musculoskeletal: General: Normal range of motion. Cervical back: Normal range of motion and neck supple. Skin: General: Skin is warm and dry. Neurological: General: No focal deficit present. Mental Status: She is alert and oriented to person, place, and time. Psychiatric: Mood and Affect: Mood normal. Behavior: Behavior normal. Assessment/Plan (K51.018) Ulcerative pancolitis with other complication (HCC) (primary encounter diagnosis) 1. Ulcerative pancolitis with other complication (HCC) - CALPROTECTIN,FECAL - COMP METABOLIC PANEL; Future - SED RATE WESTERGREN; Future - C-REACTIVE PROTEIN (CRP); Future - Pt has stopped Humira on her own after 07/2022. Due to her clinical improvement she is not interested in starting medication again. Informed of risk for recurrent flares, uncontrolled disease, complications, hospitalizations, while not being on maintenance treatment to control her UC. Pt verbalized understanding, she will continue to follow up with me in 3 mos and notify me sooner if she changes her mind - OB-MORTGAGE PROTECTION SPECIALIST following - Will check updated inflammatory markers, LFTs I spent a total of 15 minutes on the date of the service which included preparing to see the patient, [id number] patient care, completing clinical documentation, obtaining and/or reviewing separately obtained history, performing a medically appropriate examination, counseling and educating the patient/family/caregiver, ordering medications, tests, or procedures, communicating with other HCPs (not separately reported), independently interpreting results (not separately reported), communicating results to the patient/family/caregiver, and care coordination (not separately reported). Giana Saleh PA-C October 02, 2022 3:23 PM documented in this encounter [facility] 09-20-2022 Miscellaneous Notes Patient is , cannot have a colonoscopy. I did leave her a message regarding the Nenita Mary Pozo ELECTRICAL LINE WORKER documented in this encounter [facility] 09-04-2022 Note HNO ID: [id number] Author: Gila Hopper MA Service: ? Author Type: Bias Machine Operator Helper Type: Progress Notes Filed: 09/04/2022 5:28 PM Note Text: The patient is here for an injection of Cyanocoblamin (B12). Dose: 1 ml (1000 mcg) Route: IM Site: left deltoid Laborer Laboratory: [facility] Lot #: [id number] Expiration Date: 1123 Gila Hopper MA [facility] 09-04-2022 Note HNO ID: [id number] Author: Ana Rico MD Service: ? Author Type: Physician Type: Progress Notes Filed: 09/04/2022 5:28 PM Note Text: Radha Barnes 2000 September 04, 2022 HPI: Radha Barnes is a 22 year old female with iron deficiency anemia secondary to ulcerative colitis and menorrhagia. She was referred by Giana Saleh PA-C for evaluation of anemia. She has had bloody bowel movement and lower abdominal pain since 03/2020. Colonoscopy 12/08/2020 demonstrated active pancolitis. Unremarkable EGD. She was started on Mesalamine for ulcerative colitis. On ferrous sulfate 325 mg TID since 10/2020. Lab work on 01/19/21 showed hemoglobin 8.7, MCV 77.2, platelets 574, normal WBC, ferritin 16, transferrin saturation 4%. Received IV Monoferric 02/23/2021, 03/22/2022. No acute complications. Interval History: She presents today for follow-up of iron deficiency anemia. Received IV Monoferric 03/22/22. She takes oral iron occasionally around menstrual periods. On Humira for ulcerative colitis. No bloody bowel movements. First , 12W+1, NAJMA in 03/2023. Reports morning sickness. Feels dizzy sometimes. No chest pain, shortness of breath, abdominal pain. 02/11/22: Hgb 13, PLT 452K, ferritin 24.1, iron 32, transferrin saturation 10%. 06/21/22: Hgb 13.4, PLT 350K, ferritin 179, iron 103, TIBC 253, transferrin saturation 40.7%. 08/29/22: Hgb 12.2, Ferritin 144, normal iron+TIBC, B12 295. PAST MEDICAL HISTORY Diagnosis Date Anxiety and depression Childhood overweight, BMI 85-94.9 percentile 08/2015 Iron deficiency anemia Iron deficiency anemia due to chronic blood loss 02/09/2021 Menarche 01/2013 PMH - PAST MEDICAL HISTORY OF 10/15/2006 normal color vision depression Ulcerative colitis (HCC) PAST SURGICAL HISTORY Procedure Laterality Date CAPSULE ENDOSCOPY SMALL BOWEL 01/25/2021 COLONOSCOPY GEN ANES 12/08/2020 EGD 12/08/2020 UNLISTED DIAGNOSTIC GASTROENTEROLOGY PROCEDURE 01/25/2021 Current Outpatient Medications Medication Sig Dispense Refill metroNIDAZOLE (FLAGYL) 500 mg tablet Take 1 tablet by mouth twice daily for 7 days. 14 tablet 0 pyridoxine, vitamin B6, (VITAMIN B-6) 50 mg tablet Take 1 tablet by mouth once daily. 100 tablet 2 ondansetron (ZOFRAN) 4 mg tablet Take 1 tablet by mouth every 8 hours as needed for nausea/vomiting. 30 tablet 1 prental multivitamin 27 mg iron- 800 mcg tablet Take 1 tablet by mouth once daily. ferrous sulfate 325 mg (65 mg iron) tablet Take 1 tablet by mouth daily with breakfast. 90 tablet 3 No current facility-administered medications for this visit. ALLERGIES No Known Allergies FAMILY HISTORY Problem Relation Age of Onset Hypertension Mother other (gluten intolerance) Mother Hypertension Father Heart Sister murmur as an infant Heart Maternal Grandmother Diabetes Maternal Grandmother Hypertension Maternal Grandfather Heart Maternal Grandfather 60s other (Bladder cancer) Maternal Grandfather smoker Heart Paternal Grandmother Hypertension Paternal Grandmother Hypertension Paternal Grandfather Heart Paternal Grandfather age 52 [place]; adn MGGF Social History Tobacco Use Smoking status: Never Smokeless tobacco: Never Vaping Use Vaping Use: Never used Substance Use Topics Alcohol use: Not Currently Comment: occasional Drug use: No I have confirmed and edited as necessary, the PFSH and ROS obtained by others on 09/04/2022. Review of Systems: All systems reviewed on 09/04/2022 with pertinent positives and negatives as outlined in HPI or interval history. 09/04/22 0943 BP: 121/68 Pulse: 104 SpO2: 99% Weight: 64.4 kg (142 lb) Height: 154.9 cm (5' 1 ) Body mass index is 26.83 kg/m?. Physical Exam: ECOG PS: 0 Pain Intensity: 0 General: Age-appropriate well developed. NAD. HEENT: Normocephalic, no sclera icterus. Neck: Supple. Chest: Clear bilaterally, not labored. Heart: Normal S1 and S2, RRR Abdomen: Soft, nontender, nondistended, bowel sounds present. Extremities: No edema. Neurological: Grossly intact. Skin: No rashes or jaundice. Psychiatric: Alert and oriented. Appropriate mood and affect. Labs WBC (k/uL) Date Value 09/03/2022 8.21 RBC (m/uL) Date Value 09/03/2022 4.15 Hemoglobin (g/dL) Date Value 09/03/2022 12.9 Hematocrit (%) Date Value 09/03/2022 36.8 MCV (fL) Date Value 09/03/2022 88.7 MCH (pg) Date Value 09/03/2022 31.1 MCHC (g/dL) Date Value 09/03/2022 35.1 RDW-CV (%) Date Value 09/03/2022 12.8 Platelet Count (k/uL) Date Value 09/03/2022 345 MPV (fL) Date Value 09/03/2022 9.6 Glucose (mg/dL) Date Value 09/27/2021 88 BUN (mg/dL) Date Value 09/27/2021 5 (L) Creatinine (mg/dL) Date Value 09/27/2021 0.62 Sodium (mmol/L) Date Value 09/27/2021 138 Potassium (mmol/L) Date Value 09/27/2021 3.5 (L) Chloride (mmol/L) Date Value 09/27/2021 103 C (more content not included)... [facility] 09-04-2022 History of Presen t illness Narrative The patient is here for an injection of Cyanocoblamin (B12). Dose: 1 ml (1000 mcg) Route: IM Site: left deltoid Laborer Laboratory: [facility] Lot #: [id number] Expiration Date: 1123 Gila Hopper MA Radha Barnes 2000 September 04, 2022 HPI: Radha Barnes is a 22 year old female with iron deficiency anemia secondary to ulcerative colitis and menorrhagia. She was referred by Giana Saleh PA-C for evaluation of anemia. She has had bloody bowel movement and lower abdominal pain since 03/2020. Colonoscopy 12/08/2020 demonstrated active pancolitis. Unremarkable EGD. She was started on Mesalamine for ulcerative colitis. On ferrous sulfate 325 mg TID since 10/2020. Lab work on 01/19/21 showed hemoglobin 8.7, MCV 77.2, platelets 574, normal WBC, ferritin 16, transferrin saturation 4%. Received IV Monoferric 02/23/2021, 03/22/2022. No acute complications. Interval History: She presents today for follow-up of iron deficiency anemia. Received IV Monoferric 03/22/22. She takes oral iron occasionally around menstrual periods. On Humira for ulcerative colitis. No bloody bowel movements. First , 12W+1, NAJMA in 03/2023. Reports morning sickness. Feels dizzy sometimes. No chest pain, shortness of breath, abdominal pain. 02/11/22: Hgb 13, PLT 452K, ferritin 24.1, iron 32, transferrin saturation 10%. 06/21/22: Hgb 13.4, PLT 350K, ferritin 179, iron 103, TIBC 253, transferrin saturation 40.7%. 08/29/22: Hgb 12.2, Ferritin 144, normal iron+TIBC, B12 295. PAST MEDICAL HISTORY Diagnosis Date Anxiety and depression Childhood overweight, BMI 85-94.9 percentile 08/2015 Iron deficiency anemia Iron deficiency anemia due to chronic blood loss 02/09/2021 Menarche 01/2013 PMH - PAST MEDICAL HISTORY OF 10/15/2006 normal color vision depression Ulcerative colitis (HCC) PAST SURGICAL HISTORY Procedure Laterality Date CAPSULE ENDOSCOPY SMALL BOWEL 01/25/2021 COLONOSCOPY GEN ANES 12/08/2020 EGD 12/08/2020 UNLISTED DIAGNOSTIC GASTROENTEROLOGY PROCEDURE 01/25/2021 Current Outpatient Medications Medication Sig Dispense Refill metroNIDAZOLE (FLAGYL) 500 mg tablet Take 1 tablet by mouth twice daily for 7 days. 14 tablet 0 pyridoxine, vitamin B6, (VITAMIN B-6) 50 mg tablet Take 1 tablet by mouth once daily. 100 tablet 2 ondansetron (ZOFRAN) 4 mg tablet Take 1 tablet by mouth every 8 hours as needed for nausea/vomiting. 30 tablet 1 prental multivitamin 27 mg iron- 800 mcg tablet Take 1 tablet by mouth once daily. ferrous sulfate 325 mg (65 mg iron) tablet Take 1 tablet by mouth daily with breakfast. 90 tablet 3 No current facility-administered medications for this visit. ALLERGIES No Known Allergies FAMILY HISTORY Problem Relation Age of Onset Hypertension Mother other (gluten intolerance) Mother Hypertension Father Heart Sister murmur as an infant Heart Maternal Grandmother Diabetes Maternal Grandmother Hypertension Maternal Grandfather Heart Maternal Grandfather 60s other (Bladder cancer) Maternal Grandfather smoker Heart Paternal Grandmother Hypertension Paternal Grandmother Hypertension Paternal Grandfather Heart Paternal Grandfather age 52 [place]; adn MGGF Social History Tobacco Use Smoking status: Never Smokeless tobacco: Never Vaping Use Vaping Use: Never used Substance Use Topics Alcohol use: Not Currently Comment: occasional Drug use: No I have confirmed and edited as necessary, the PFSH and ROS obtained by others on 09/04/2022. Review of Systems: All systems reviewed on 09/04/2022 with pertinent positives and negatives as outlined in HPI or interval history. 09/04/22 0943 BP: 121/68 Pulse: 104 SpO2: 99% Weight: 64.4 kg (142 lb) Height: 154.9 cm (5' 1 ) Body mass index is 26.83 kg/m . Physical Exam: ECOG PS: 0 Pain Intensity: 0 General: Age-appropriate well developed. NAD. HEENT: Normocephalic, no sclera icterus. Neck: Supple. Chest: Clear bilaterally, not labored. Heart: Normal S1 and S2, RRR Abdomen: Soft, nontender, nondistended, bowel sounds present. Extremities: No edema. Neurological: Grossly intact. Skin: No rashes or jaundice. Psychiatric: Alert and oriented. Appropriate mood and affect. Labs WBC (k/uL) Date Value 09/03/2022 8.21 RBC (m/uL) Date Value 09/03/2022 4.15 Hemoglobin (g/dL) Date Value 09/03/2022 12.9 Hematocrit (%) Date Value 09/03/2022 36.8 MCV (fL) Date Value 09/03/2022 88.7 MCH (pg) Date Value 09/03/2022 31.1 MCHC (g/dL) Date Value 09/03/2022 35.1 RDW-CV (%) Date Value 09/03/2022 12.8 Platelet Count (k/uL) Date Value 09/03/2022 345 MPV (fL) Date Value 09/03/2022 9.6 Glucose (mg/dL) Date Value 09/27/2021 88 BUN (mg/dL) Date Value 09/27/2021 5 (L) Creatinine (mg/dL) Date Value 09/27/2021 0.62 Sodium (mmol/L) Date Value 09/27/2021 138 Potassium (mmol/L) Date Value 09/27/2021 3.5 (L) Chloride (mmol/L) Date Value 09/27/2021 103 CO2 (mmol/L) Date Value 09/27/2021 23 Protein, Total (g/dL) Date Value 09/27/2021 7.4 Albumin (g/dL) Date Value 09/27/2021 4.2 Calcium, Total (mg/dL) Date Value 09/27/2021 9.1 Alkaline Phosphatase (U/L) Date Value 09/27/2021 141 (H) Bilirubin, Total (mg/dL) Date Value 09/27/2021 0.2 AST (U/L) Date Value 09/27/2021 21 ALT (U/L) Date Value 09/27/2021 9 Assessment/Plan: 1. Iron deficiency anemia. - Secondary to bleeding and malabsorption from ulcerative pancolitis, as well as past menorrhagia. - Was on ferrous sulfate 325 mg TID, still with severe MORGAN. - Received IV Monoferric 1000 mg on 02/23/21, 03/22/22, tolerated and responded well. - 08/29/22: Hgb 12.2, Ferritin 144, normal iron+TIBC, B12 295. - Continue vitamin supplement. 2. Thrombocytosis. - Likely secondary to iron deficiency anemia and/or UC. - Resolved. 3. Ulcerative pancolitis with rectal bleeding. - s/p EGD and colonoscopy 12/2020, capsule endoscopy 01/2021. - Symptoms improved on Humira. - Follows with Dr. Adams and Giana Saleh PA-C. 4. B12 deficiency. - B12 295 on 08/29/22. Likely secondary to ulcerative colitis. - B12 1000 mcg IM on 09/04/22. Start B12 1000 mcg PO daily. 5. Anemia in . - High risk due to history of ulcerative colitis. - Monitor blood counts. Continue vitamin. IV iron and B12 IM as indicated. Follow up in 3 months or sooner if symptomatic. Check CBC, B12, ferritin and iron+TIBC prior to visit. Call for questions or concerns. Ana Rico MD Portions of this note including ROS, impression/plan, and examination may have been copied forward as to provide important historical information essential in contributing to medical decision making. Documentation has been reviewed and edited as necessary to support clinical decision making for today's visit 09/04/2022. Medical Decision Making: Problems: Moderate: New problem with uncertain prognosis Data: Unique test result(s) reviewed: 3+ Unique test(s) ordered: 3+ Risk: Low: Low risk from testing/treatment Medical Decision Making Level: 4 - Moderate documented in this encounter [facility] 09-03-2022 Note HNO ID: [id number] Author: Alka Bonilla Ma Service: ? Author Type: ? Type: Progress Notes Filed: 09/03/2022 11:02 AM Note Text: Patient here for First Trimester Screening. See ultrasound report for details. Options for genetic screening and diagnosis discussed with the patient. Patient opts for first trimester screening and the sequential screening protocol. Limitations of screening tests discussed with the patient. Laureano Fajardo MD [facility] 09-03-2022 Miscellaneous Notes KJ - VB No. LOF No. CTXS No. Movement: absent. Other c/o: No. Medication list reviewed. Physical Exam See Flow Sheet Gen: no accute distress, well appearing A/P 12w0d Estimated Date of Delivery: 03/18/23 NT with NIPT today UC - GI doc plans to have her restart Humira Anemia - encouraged Fe & Regular PNV use. Laureano Fajardo MD documented in this encounter [facility] 09-03-2022 History of Presen t illness Narrative Patient here for First Trimester Screening. See ultrasound report for details. Options for genetic screening and diagnosis discussed with the patient. Patient opts for first trimester screening and the sequential screening protocol. Limitations of screening tests discussed with the patient. Laureano Fajardo MD documented in this encounter [facility] 09-03-2022 Instructions Alka Bonilla Ma - 09/03/2022 10:06 AM EDT SEQUENTIAL SCREENINGS The [facility] offers sequential screenings for women who are interested in screenings for chromosomal abnormalities and certain defects during a . The sequential screen combines ultrasound and blood tests to determine the risk of chromosomal abnormalities, including Down's Syndrome (Trisomy 21) and Trisomy 18, as well as open neural tube defects including spina bifida. Ultrasound examination is performed between 11 weeks and 13 weeks gestational age. Blood tests are drawn after the ultrasound and again later in the between 15 and 21 weeks gestational age. Please let your physician know if you are interested in this testing. It will require an appointment with our mammography technician. This is not an ultrasound performed by a physician in our office during a routine visit. SIGNS AND SYMPTOMS OF LABOR 1. Contractions every 10 minutes or more often 2. Clear, pink, or brownish fluid (water) leaking from vagina 3. Feeling that baby is pushing down, pressure 4. Low, dull backache 5. Cramps that feel like a period 6. Cramps with or without diarrhea If you notice any of the above symptoms, contact our office at [phone] and ask to speak with a nurse. After hours, you can call doctors registry at [phone] OR call [facility] at [phone] and ask to have the doctor television maintenance worker paged. If you consider this an emergency, dial [phone] or go to your nearest emergency department. NEED HELP? Are you dealing with a violent or abusive relationship? Are you a victim of rape or sexual assult? Call [facility] ([place]) 24 hour Crisis Hotline: 636.354.8916 or 709-991-0624. MANUAL Your Guide to a Healthy manual is now on-line. Visit [email or web address] to download your free copy SEQUENTIAL TESTING PROCESS Sequential Screen First Trimester Today you are currently: 12w0d weeks 09/03/2022: Ultrasound and blood test. Sequential Screen Second Trimester (16-17 Weeks Gestation) When you are called with your results, the nurse will give the optimal draw dates for the Sequential screen second trimester. Blood testing can be done at any [facility] lab. Please report to the any blast furnace keeper helper office front end mechanic for the Sequential Part 2 requisition and order before reporting to the lab. Your weight will need to be documented for testing. Please note: -No appointment is need for your second blood draw. -Office hours are 8 am to 4:30 pm. -Please have testing done prior to 12 noon on Friday's -Once the sequential testing is started, in the first trimester the only follow-up will be for the sequential screen second trimester. Please don't have a Quad screen ordered by another provider. If you or your Provider have any questions please call your maternal medicine office, for east side please call [phone] or for the West side call [phone] and ask for the the nurse. Thank you. documented in this encounter [facility] 08-29-2022 Miscellaneous Notes Please notify patient that Rx for Flagyl 500 mg PO BID x 7 days was sent. NO intercourse during treatment. Judy Barron APRN.CNM Please see pt's vaginal culture results and advise. Pt viewed results in mychart. Eulalia Nguyễn LPN documented in this encounter [facility] 08-27-2022 Miscellaneous Notes KELLI-S: Radha Barnes is a 22 year old female who presents at 11w0d with NAJMA:03/18/2023, by Last Menstrual for a problem visit. Denies headache, visual changes, chest pain, shortness of breath, vaginal bleeding, leakage of fluid, or dysuria. Feeling well, no complaints. O: See flow sheet Gen: No apparent distress Abd: Gravid, nontender. Unable to auscultate FHT, limited bedside US for FHR and FM. PELVIC: external genitalia normal, Mons and labia majora with erythema and excoriation. normal Bartholin's glands, urethra, [place]art[place]'s glands, no vulvar lesions, no cervical lesions, good vaginal support, small amount of white thin vaginal discharge, no odor. normal appearing perineal body and perianal region ASSESSMENT/PLAN: 1. Vaginal discharge P: 1) PTL precautions reviewed and when to call 2) RTO as scheduled 3) Will treat vulvar irritation with hydrocortisone 1% twice a day for 7 days. Reviewed perineal hygiene. Vaginitis swab sent and will treat after results. Em Sampson APRN.CNM documented in this encounter [facility] 08-12-2022 Miscellaneous Notes D/W Mary Pozo who called pt, pt is switching insurance to [place] medicaid. Has been off of Humira since 06/2022, currently . Will plan to check drug levels/ab. If WNL will need new PA to restart Humira. Giana Saleh PA-C documented in this encounter [facility] 08-08-2022 Miscellaneous Notes Initial risk assessment form submitted 08/08/2022 Gauri Drew RN documented in this encounter [facility] 08-06-2022 Note HNO ID: [id number] Author: Laureano Fajardo MD Service: ? 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 HPI: Radha is a 22 year old White here to establish Obstetrical Care. Patient's last menstrual period was 06/11/2022 (exact date). from OB Dating Form. Cycles regular was planned Complaints: nausea without vomiting OB History T0 L0 SAB0 IAB0 Ectopic0 Multiple0 Live Births0 Patient's Risk Screening for delivery: MEDICAL/PSYCHOSOCIAL HISTORY: History of hemorrhage or bleeding concerns: No Thyroid Disease: No History of chronic hypertension: No History of pre-existing diabetes: No No results found for: ABORHD BMI 26.11 kg/(m2) History of abnormal pap: No Prior treatment for cervical dysplasia: none. History of STDs: None Tobacco use: No Caffeine use: Yes - 1 can pop per day Drug use: No Alcohol use: No Multivitamin with Folic acid: Yes Quaker or heritage: No Would refuse blood transfusion if medically necessary: No Are you currently employed? Yes, Occupation: [employer] Do you have any history of depression, anxiety, PTSD, eating disorders or other mood problems: Yes Do you have any safety concerns or history of traumatic events that you would like to discuss with your provider: No How often does this describe you? I don't have enough money to pay my bills: Never Within the past 12 months, have you worried that your food would run out before you had money to buy more: Never In the past 12 months, has lack of reliable transportation kept you from going to medical appointments or work, or from keeping things needed for daily living: Never In the past 12 months, have you had any concerns about having a place to live, or about the condition or quality of your housing: Never Are there any cultural or spiritual needs we should be aware of: No Over the past two weeks have you felt down, depressed, or hopeless: Negative Over the past two weeks have you felt little interest or pleasure in doing things: Negative GENETIC SCREENING: Partner present: Yes Patient verbalized knowledge of partner family health history: Yes Do you or your partner have any personal or family history of defects not previously discussed: No Do you have history of a complicated by anomaly, genetic condition, or demise: No Marital Status:Committed Relationship Partner: Name: Jairo Age: 24 Occupation: [employer] Gender: Male PAST MEDICAL HISTORY Diagnosis Date Anxiety and depression Childhood overweight, BMI 85-94.9 percentile 08/2015 Iron deficiency anemia Iron deficiency anemia due to chronic blood loss 02/09/2021 Menarche 01/2013 PMH - PAST MEDICAL HISTORY OF 10/15/2006 normal color vision depression Ulcerative colitis (HCC) PAST SURGICAL HISTORY Procedure Laterality Date CAPSULE ENDOSCOPY SMALL BOWEL 01/25/2021 COLONOSCOPY GEN ANES 12/08/2020 EGD 12/08/2020 UNLISTED DIAGNOSTIC GASTROENTEROLOGY PROCEDURE 01/25/2021 Current Outpatient Medications Medication Sig Dispense Refill prental multivitamin 27 mg iron- 800 mcg tablet Take 1 tablet by mouth once daily. ferrous sulfate 325 mg (65 mg iron) tablet Take 1 tablet by mouth daily with breakfast. 90 tablet 3 adalimumab 40 mg/0.4 mL subcutaneous pen kit (HUMIRA (CF)) Inject 40 mg subcutaneously every 2 weeks. (Patient not taking: Reported on 08/01/2022) 1 Kit 11 No current facility-administered medications for this visit. Allergies As of Date: 08/06/2022 (No Known Allergies) Fully Assessed 08/06/2022 Does patient have penicillin allergy: No REVIEW OF SYSTEMS: GENERAL: Negative for: Fever or Chills HEENT: Negative for: Headache, Impaired Vision, Ringing in Ears, Nosebleeds NECK: Negative for: Swelling, Pain, Stiffness RESPIRATORY: Negative for: Cough, Shortness of breath, Wheezing GASTROINTESTINAL: Negative for: Heartburn, Constipation, Diarrhea, Blood in stool, Vomiting MUSCULOSKELETAL: Negative for: Muscle or joint pain, stiffness, Joint swelling NEUROLOGIC/PSYCHIATRIC: Negative for: Weakness, Paralysis, Numbness, Tingling, Tremor, Anxiety, Depression, Memory loss SKIN: Negative for: Rash, Itching GENITOURINARY: Negative for: vaginal itching, vaginal discharge, hematuria or dysuria PHYSICAL EXAM: BP 112/66 Ht 5' 1.614 (1.57m) Wt 141 lb (64.0kg) LMP 06/11/2022 BMI 26.11 kg/(m2). GENERAL: pleasant in no apparent distress DERMATOLOGY: Normal, without lesions, non-icteric, and non-hirsute NECK: Supple, full range of motion, no adenopathy, and thyroid normal CHEST: Normal inspiratory effort BREAST: soft, non-tender, symmetric, no dominant mass, normal nipple-areolar complex, no lymphadenopathy, and no nipple discharge ABDOMEN: soft, non-tender, and no masses (more content not included)... 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 HPI: Radha is a 22 year old White here to establish Obstetrical Care. Patient's last menstrual period was 06/11/2022 (exact date). from OB Dating Form. Cycles regular was planned Complaints: nausea without vomiting OB History T0 L0 SAB0 IAB0 Ectopic0 Multiple0 Live Births0 Patient's Risk Screening for delivery: MEDICAL/PSYCHOSOCIAL HISTORY: History of hemorrhage or bleeding concerns: No Thyroid Disease: No History of chronic hypertension: No History of pre-existing diabetes: No No results found for: ABORHD BMI 26.11 kg/(m^2) History of abnormal pap: No Prior treatment for cervical dysplasia: none. History of STDs: None Tobacco use: No Caffeine use: Yes - 1 can pop per day Drug use: No Alcohol use: No Multivitamin with Folic acid: Yes Quaker or heritage: No Would refuse blood transfusion if medically necessary: No Are you currently employed? Yes, Occupation: [employer] Do you have any history of depression, anxiety, PTSD, eating disorders or other mood problems: Yes Do you have any safety concerns or history of traumatic events that you would like to discuss with your provider: No How often does this describe you? I don't have enough money to pay my bills: Never Within the past 12 months, have you worried that your food would run out before you had money to buy more: Never In the past 12 months, has lack of reliable transportation kept you from going to medical appointments or work, or from keeping things needed for daily living: Never In the past 12 months, have you had any concerns about having a place to live, or about the condition or quality of your housing: Never Are there any cultural or spiritual needs we should be aware of: No Over the past two weeks have you felt down, depressed, or hopeless: Negative Over the past two weeks have you felt little interest or pleasure in doing things: Negative GENETIC SCREENING: Partner present: Yes Patient verbalized knowledge of partner family health history: Yes Do you or your partner have any personal or family history of defects not previously discussed: No Do you have history of a complicated by anomaly, genetic condition, or demise: No Marital Status:Committed Relationship Partner: Name: Jairo Age: 24 Occupation: [employer] Gender: Male PAST MEDICAL HISTORY Diagnosis Date Anxiety and depression Childhood overweight, BMI 85-94.9 percentile 08/2015 Iron deficiency anemia Iron deficiency anemia due to chronic blood loss 02/09/2021 Menarche 01/2013 PMH - PAST MEDICAL HISTORY OF 10/15/2006 normal color vision depression Ulcerative colitis (HCC) PAST SURGICAL HISTORY Procedure Laterality Date CAPSULE ENDOSCOPY SMALL BOWEL 01/25/2021 COLONOSCOPY GEN ANES 12/08/2020 EGD 12/08/2020 UNLISTED DIAGNOSTIC GASTROENTEROLOGY PROCEDURE 01/25/2021 Current Outpatient Medications Medication Sig Dispense Refill prental multivitamin 27 mg iron- 800 mcg tablet Take 1 tablet by mouth once daily. ferrous sulfate 325 mg (65 mg iron) tablet Take 1 tablet by mouth daily with breakfast. 90 tablet 3 adalimumab 40 mg/0.4 mL subcutaneous pen kit (HUMIRA (CF)) Inject 40 mg subcutaneously every 2 weeks. (Patient not taking: Reported on 08/01/2022) 1 Kit 11 No current facility-administered medications for this visit. Allergies As of Date: 08/06/2022 (No Known Allergies) Fully Assessed 08/06/2022 Does patient have penicillin allergy: No REVIEW OF SYSTEMS: GENERAL: Negative for: Fever or Chills HEENT: Negative for: Headache, Impaired Vision, Ringing in Ears, Nosebleeds NECK: Negative for: Swelling, Pain, Stiffness RESPIRATORY: Negative for: Cough, Shortness of breath, Wheezing GASTROINTESTINAL: Negative for: Heartburn, Constipation, Diarrhea, Blood in stool, Vomiting MUSCULOSKELETAL: Negative for: Muscle or joint pain, stiffness, Joint swelling NEUROLOGIC/PSYCHIATRIC: Negative for: Weakness, Paralysis, Numbness, Tingling, Tremor, Anxiety, Depression, Memory loss SKIN: Negative for: Rash, Itching GENITOURINARY: Negative for: vaginal itching, vaginal discharge, hematuria or dysuria PHYSICAL EXAM: BP 112/66 Ht 5' 1.614 (1.57m) Wt 141 lb (64.0kg) LMP 06/11/2022 BMI 26.11 kg/(m^2). GENERAL: pleasant in no apparent distress DERMATOLOGY: Normal, without lesions, non-icteric, and non-hirsute NECK: Supple, full range of motion, no adenopathy, and thyroid normal CHEST: Normal inspiratory effort BREAST: soft, non-tender, symmetric, no dominant mass, normal nipple-areolar complex, no lymphadenopathy, and no nipple discharge ABDOMEN: soft, non-tender, and no masses NEURO: alert and oriented x3,exam grossly non-focal PELVIS: External genitalia normal without lesions. Perineal body intact. No vaginal or cervical lesions. Cervix closed. Uterus 8 week size. No adnexal masses or tenderness. Clinical Pelvimetry: Pelvimetry clinically assessed as adequate Limited OB ultrasound exam: single intrauterine and positive cardiac activity OB Risk Screening: Completed, no positive findings documented. ASSESSMENT: 22 year old at 8w0d wks gestational age PLAN: 1) Patient oriented to practice. Discussed nutrition, folic acid supplementation, dietary guidelines, exercise, smoking, alcohol, caffeine, and drug use. Discussed routine OB labs including STD/HIV. Discussed how to access Your guide to a health and the Mineralogy Professor. Discussed aneuploidy and carrier screening. Regarding aneuploidy screening, nuchal translucency/first trimester early anatomy ultrasound and NIPT were discussed. Regarding carrier screening, the myriad screen was discussed. The risks/benefits and limitations of NIPT/aneuploidy screening were reviewed including the potential for false negative and false positive results. We discussed the availability of professional-society guided carrier screening and reviewed the conditions screened and limitations of screening. The availability of genetic counseling was reviewed. Information on aneuploidy/carrier screening was provided. The patient chooses: Aneuploidy screening: chooses to proceed with First trimester early anatomy ultrasound (12-13w6d) and Carrier screening: Declines 2) Nausea - advised on vitamin B6 & rx zofran given 3) See problem list Follow up in 4 weeks or sooner prn. Laureano Fajardo MD documented in this encounter [facility] 08-06-2022 Instructions Alka Bonilla Ma - 08/06/2022 1:58 PM EDT Please select the following link to access the [facility] Your Guide to a Healthy . [email or web address] documented in this encounter [facility] 06-28-2022 Note HNO ID: [id number] Author: Ana Rico MD Service: ? Author Type: Physician Type: Progress Notes Filed: 06/28/2022 11:22 AM Note Text: Radha Barnes 2000 June 28, 2022 HPI: Radha Barnes is a 22 year old female with iron deficiency anemia secondary to ulcerative colitis and menorrhagia. She was referred by Giana Saleh PA-C for evaluation of anemia. She has had bloody bowel movement and lower abdominal pain since 03/2020. Colonoscopy 12/08/2020 demonstrated active pancolitis. Unremarkable EGD. She was started on Mesalamine for ulcerative colitis. On ferrous sulfate 325 mg TID since 10/2020. Lab work on 01/19/21 showed hemoglobin 8.7, MCV 77.2, platelets 574, normal WBC, ferritin 16, transferrin saturation 4%. Received IV Monoferric 02/23/2021, 03/22/2022. No acute complications. Interval History: She presents today for follow-up of iron deficiency anemia. Received IV Monoferric 03/22/22, tolerated it well. She takes oral iron occasionally around menstrual periods. On Humira for ulcerative colitis. No bloody bowel movements. Normal menstrual flow. Fatigue and headaches improved. No unintentional weight loss, chest pain, shortness of breath, nausea, vomiting, abdominal pain. 02/11/22: Hgb 13, PLT 452K, ferritin 24.1, iron 32, transferrin saturation 10%. 06/21/22: Hgb 13.4, PLT 350K, ferritin 179, iron 103, TIBC 253, transferrin saturation 40.7%. PAST MEDICAL HISTORY Diagnosis Date Anxiety and depression Childhood overweight, BMI 85-94.9 percentile 08/2015 Iron deficiency anemia Iron deficiency anemia due to chronic blood loss 02/09/2021 Menarche 01/2013 PMH - PAST MEDICAL HISTORY OF 10/15/2006 normal color vision Ulcerative colitis (HCC) PAST SURGICAL HISTORY Procedure Laterality Date CAPSULE ENDOSCOPY SMALL BOWEL 01/25/2021 COLONOSCOPY GEN ANES 12/08/2020 EGD 12/08/2020 UNLISTED DIAGNOSTIC GASTROENTEROLOGY PROCEDURE 01/25/2021 Current Outpatient Medications Medication Sig Dispense Refill ferrous sulfate 325 mg (65 mg iron) tablet Take 1 tablet by mouth daily with breakfast. 90 tablet 3 adalimumab 40 mg/0.4 mL subcutaneous pen kit (HUMIRA (CF)) Inject 40 mg subcutaneously every 2 weeks. 1 Kit 11 No current facility-administered medications for this visit. ALLERGIES No Known Allergies FAMILY HISTORY Problem Relation Age of Onset Hypertension Mother other (gluten intolerance) Mother Hypertension Father Heart Sister murmur as an infant Diabetes Maternal Grandmother Hypertension Maternal Grandfather Heart Maternal Grandfather 60s other (Bladder cancer) Maternal Grandfather smoker No Known Problems Paternal Grandmother Hypertension Paternal Grandfather Heart Paternal Grandfather age 52 [place]; adn MGGF Social History Tobacco Use Smoking status: Never Smokeless tobacco: Never Vaping Use Vaping Use: Never used Substance Use Topics Alcohol use: Yes Comment: occasional Drug use: No I have confirmed and edited as necessary, the PFSH and ROS obtained by others on 06/28/2022. Review of Systems: All systems reviewed on 06/28/2022 with pertinent positives and negatives as outlined in HPI or interval history. 06/28/22 1036 BP: 134/100 Pulse: 77 Temp: 36.9 ?C (98.4 ?F) TempSrc: Temporal SpO2: 97% Weight: 60.8 kg (134 lb) Height: 156.8 cm (5' 1.75 ) Body mass index is 24.71 kg/m?. Physical Exam: ECOG PS: 0 Pain Intensity: 0 General: Age-appropriate well developed. NAD. HEENT: Normocephalic, no sclera icterus. Neck: Supple. Chest: Clear bilaterally, not labored. Heart: Normal S1 and S2, RRR Abdomen: Soft, nontender, nondistended, bowel sounds present. Extremities: No edema. Neurological: Grossly intact. Skin: No rashes or jaundice. Psychiatric: Alert and oriented. Appropriate mood and affect. Labs WBC (k/uL) Date Value 06/21/2022 8.04 RBC (m/uL) Date Value 06/21/2022 4.43 Hemoglobin (g/dL) Date Value 06/21/2022 13.4 Hematocrit (%) Date Value 06/21/2022 42.5 MCV (fL) Date Value 06/21/2022 95.9 MCH (pg) Date Value 06/21/2022 30.2 MCHC (g/dL) Date Value 06/21/2022 31.5 RDW-CV (%) Date Value 06/21/2022 13.8 Platelet Count (k/uL) Date Value 06/21/2022 350 MPV (fL) Date Value 06/21/2022 9.5 Glucose (mg/dL) Date Value 09/27/2021 88 BUN (mg/dL) Date Value 09/27/2021 5 (L) Creatinine (mg/dL) Date Value 09/27/2021 0.62 Sodium (mmol/L) Date Value 09/27/2021 138 Potassium (mmol/L) Date Value 09/27/2021 3.5 (L) Chloride (mmol/L) Date Value 09/27/2021 103 CO2 (mmol/L) Date Value 09/27/2021 23 Protein, Total (g/dL) Date Value 09/27/2021 7.4 Albumin (g/dL) Date Value 09/27/2021 4.2 Calcium, Total (mg/dL) Date Value 09/27/2021 9.1 Alkaline Phosphatase (U/L) Date Value 09/27/2021 141 (H) Bilirubin, Total (mg/dL) Date Value 09/27/2021 0.2 AST (U/L) Date Value 09/27/2021 (more content not included)... [facility] 06-28-2022 History of Presen t illness Narrative Radha Barnes 2000 June 28, 2022 HPI: Radha Barnes is a 22 year old female with iron deficiency anemia secondary to ulcerative colitis and menorrhagia. She was referred by Giana Saleh PA-C for evaluation of anemia. She has had bloody bowel movement and lower abdominal pain since 03/2020. Colonoscopy 12/08/2020 demonstrated active pancolitis. Unremarkable EGD. She was started on Mesalamine for ulcerative colitis. On ferrous sulfate 325 mg TID since 10/2020. Lab work on 01/19/21 showed hemoglobin 8.7, MCV 77.2, platelets 574, normal WBC, ferritin 16, transferrin saturation 4%. Received IV Monoferric 02/23/2021, 03/22/2022. No acute complications. Interval History: She presents today for follow-up of iron deficiency anemia. Received IV Monoferric 03/22/22, tolerated it well. She takes oral iron occasionally around menstrual periods. On Humira for ulcerative colitis. No bloody bowel movements. Normal menstrual flow. Fatigue and headaches improved. No unintentional weight loss, chest pain, shortness of breath, nausea, vomiting, abdominal pain. 02/11/22: Hgb 13, PLT 452K, ferritin 24.1, iron 32, transferrin saturation 10%. 06/21/22: Hgb 13.4, PLT 350K, ferritin 179, iron 103, TIBC 253, transferrin saturation 40.7%. PAST MEDICAL HISTORY Diagnosis Date Anxiety and depression Childhood overweight, BMI 85-94.9 percentile 08/2015 Iron deficiency anemia Iron deficiency anemia due to chronic blood loss 02/09/2021 Menarche 01/2013 PMH - PAST MEDICAL HISTORY OF 10/15/2006 normal color vision Ulcerative colitis (HCC) PAST SURGICAL HISTORY Procedure Laterality Date CAPSULE ENDOSCOPY SMALL BOWEL 01/25/2021 COLONOSCOPY GEN ANES 12/08/2020 EGD 12/08/2020 UNLISTED DIAGNOSTIC GASTROENTEROLOGY PROCEDURE 01/25/2021 Current Outpatient Medications Medication Sig Dispense Refill ferrous sulfate 325 mg (65 mg iron) tablet Take 1 tablet by mouth daily with breakfast. 90 tablet 3 adalimumab 40 mg/0.4 mL subcutaneous pen kit (HUMIRA (CF)) Inject 40 mg subcutaneously every 2 weeks. 1 Kit 11 No current facility-administered medications for this visit. ALLERGIES No Known Allergies FAMILY HISTORY Problem Relation Age of Onset Hypertension Mother other (gluten intolerance) Mother Hypertension Father Heart Sister murmur as an infant Diabetes Maternal Grandmother Hypertension Maternal Grandfather Heart Maternal Grandfather 60s other (Bladder cancer) Maternal Grandfather smoker No Known Problems Paternal Grandmother Hypertension Paternal Grandfather Heart Paternal Grandfather age 52 [place]; adn MGGF Social History Tobacco Use Smoking status: Never Smokeless tobacco: Never Vaping Use Vaping Use: Never used Substance Use Topics Alcohol use: Yes Comment: occasional Drug use: No I have confirmed and edited as necessary, the PFSH and ROS obtained by others on 06/28/2022. Review of Systems: All systems reviewed on 06/28/2022 with pertinent positives and negatives as outlined in HPI or interval history. 06/28/22 1036 BP: 134/100 Pulse: 77 Temp: 36.9 C (98.4 F) TempSrc: Temporal SpO2: 97% Weight: 60.8 kg (134 lb) Height: 156.8 cm (5' 1.75 ) Body mass index is 24.71 kg/m . Physical Exam: ECOG PS: 0 Pain Intensity: 0 General: Age-appropriate well developed. NAD. HEENT: Normocephalic, no sclera icterus. Neck: Supple. Chest: Clear bilaterally, not labored. Heart: Normal S1 and S2, RRR Abdomen: Soft, nontender, nondistended, bowel sounds present. Extremities: No edema. Neurological: Grossly intact. Skin: No rashes or jaundice. Psychiatric: Alert and oriented. Appropriate mood and affect. Labs WBC (k/uL) Date Value 06/21/2022 8.04 RBC (m/uL) Date Value 06/21/2022 4.43 Hemoglobin (g/dL) Date Value 06/21/2022 13.4 Hematocrit (%) Date Value 06/21/2022 42.5 MCV (fL) Date Value 06/21/2022 95.9 MCH (pg) Date Value 06/21/2022 30.2 MCHC (g/dL) Date Value 06/21/2022 31.5 RDW-CV (%) Date Value 06/21/2022 13.8 Platelet Count (k/uL) Date Value 06/21/2022 350 MPV (fL) Date Value 06/21/2022 9.5 Glucose (mg/dL) Date Value 09/27/2021 88 BUN (mg/dL) Date Value 09/27/2021 5 (L) Creatinine (mg/dL) Date Value 09/27/2021 0.62 Sodium (mmol/L) Date Value 09/27/2021 138 Potassium (mmol/L) Date Value 09/27/2021 3.5 (L) Chloride (mmol/L) Date Value 09/27/2021 103 CO2 (mmol/L) Date Value 09/27/2021 23 Protein, Total (g/dL) Date Value 09/27/2021 7.4 Albumin (g/dL) Date Value 09/27/2021 4.2 Calcium, Total (mg/dL) Date Value 09/27/2021 9.1 Alkaline Phosphatase (U/L) Date Value 09/27/2021 141 (H) Bilirubin, Total (mg/dL) Date Value 09/27/2021 0.2 AST (U/L) Date Value 09/27/2021 21 ALT (U/L) Date Value 09/27/2021 9 Assessment/Plan: 1. Iron deficiency anemia. - Likely secondary to bleeding and malabsorption from ulcerative pancolitis, and menorrhagia. - Was on ferrous sulfate 325 mg TID, still has severe MORGAN. - Received IV Monoferric 1000 mg on 02/23/21, 03/22/22, tolerated it well. - 06/21/22: Hgb 13.4, PLT 350K, ferritin 179, iron 103, TIBC 253, transferrin saturation 40.7%. - Continue intermittent oral iron supplement. 2. Thrombocytosis. - Likely secondary to iron deficiency anemia and/or UC. - Resolved. 3. Ulcerative pancolitis with rectal bleeding. - s/p EGD and colonoscopy 12/2020, capsule endoscopy 01/2021. - Symptom improved on Humira. - Follows with Dr. Adams and Giana Saleh PA-C. 4. Menorrhagia. - Improved. Follow up in 6 months or sooner if symptomatic. Check CBC, ferritin and iron+TIBC prior to visit. Call for questions or concerns. Ana Rico MD Portions of this note including ROS, impression/plan, and examination may have been copied forward as to provide important historical information essential in contributing to medical decision making. Documentation has been reviewed and edited as necessary to support clinical decision making for today's visit 06/28/2022. Medical Decision Making: Problems: Low: Stable chronic illness Data: Unique test result(s) reviewed: 3+ Unique test(s) ordered: 3+ Medical Decision Making Level: 3 - Low documented in this encounter [facility] 06-21-2022 Note HNO ID: [id number] Author: Isabella Yeboah APRN.ENGINEERING RECRUITER Service: ? Author Type: Nurse Practitioner Type: Progress Notes Filed: 06/21/2022 11:20 AM Note Text: Gas Plant Technician offered: Patient declinesManish Garcia is a 22 year old No obstetric history on file. who presents for an annual gynecologic exam without complaints. Menses: cycles every 28-30 days and 3-5 days of flow. Contraception: none Happy if occurs HPV vaccine: Yes Last Pap: never HPV: N/A History of abnormal pap: No Last mammogram: never Sexually active: Yes History of STDS: None Patient concerns for STD exposure: No. Time with current partner: 2 years Pain with intercourse: No Postcoital bleeding: No OB History No obstetric history on file. 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 History LMP: 12/17/2021 (Exact Date), Having periods Age at Menarche: Age at First : Age at Menopause: 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 History Comments: Sexual Activity: Yes; No partner data on record Contraception: Pill PAST MEDICAL HISTORY Diagnosis Date Anxiety and depression Childhood overweight, BMI 85-94.9 percentile 08/2015 Iron deficiency anemia Iron deficiency anemia due to chronic blood loss 02/09/2021 Menarche 01/2013 PMH - PAST MEDICAL HISTORY OF 10/15/2006 normal color vision Ulcerative colitis (HCC) PAST SURGICAL HISTORY Procedure Laterality Date CAPSULE ENDOSCOPY SMALL BOWEL 01/25/2021 COLONOSCOPY GEN ANES 12/08/2020 EGD 12/08/2020 UNLISTED DIAGNOSTIC GASTROENTEROLOGY PROCEDURE 01/25/2021 FAMILY HISTORY Problem Relation Age of Onset Hypertension Mother other (gluten intolerance) Mother Hypertension Father Heart Sister murmur as an Diabetes Maternal Grandmother Hypertension Maternal Grandfather Heart Maternal Grandfather 60s other (Bladder cancer) Maternal Grandfather No Known Problems Paternal Grandmother Hypertension Paternal Grandfather Heart Paternal Grandfather age 52 [place]; adn MGGF SOCIAL HISTORY Social History Tobacco Use Smoking status: Never Smokeless tobacco: Never Vaping Use Vaping Use: Never used Substance Use Topics Alcohol use: Yes Comment: occasional Drug use: No REVIEW OF SYSTEMS Abdomen: No abdominal pain, nausea, vomiting, diarrhea, or constipation. No bloating, early satiety, indigestion, or increased flatulence. Bladder: No dysuria, gross hematuria, urinary frequency, urinary urgency, or incontinence. Breast: No breast lumps, nipple d/c, overlying skin changes, redness or skin retraction. Allergies and current medication updated:Yes EXAM: BP 144/82 Ht 5' 1.75 (1.57m) Wt 134 lb (60.8kg) LMP 06/11/2022 BMI 24.72 kg/(m2). GENERAL: pleasant, female in no apparent distress HEENT: Normocephalic, atraumatic, mucus membranes moist, and no lesions NECK: Supple, no adenopathy, and thyroid normal DERMATOLOGY: Normal, without lesions, non-icteric, and non-hirsute BREAST: soft, non-tender, symmetric, no dominant mass, normal nipple-areolar complex, no lymphadenopathy, and no nipple discharge CHEST: Normal inspiratory effort ABDOMEN: soft, non-tender, and no masses PELVIC: external genitalia normal, normal Bartholin's glands, urethra, Wartburg's glands, no vulvar lesions, no cervical lesions, good vaginal support, physiologic discharge present, normal appearing perineal body and perianal region BIMANUAL: uterus normal size, shape and consistency, no adnexal masses, and non-tender RECTOVAGINAL: deferred. NEURO: alert and oriented x3,exam grossly non-focal EXTREMITIES: normal ASSESSMENT/PLAN: 1) Health maintenance: Pap done with reflex HPV. Immunocompromised due to Humira biologic. Discussed that per current guidelines, she will need Pap cytology annually for 3 years then every 3 years until she is 31. Nutrition, exercise and routine health maintenance exams reviewed. HPV vaccine: completed series 2) Contraception: none. Contraceptive options reviewed and information provided. Recommend Menstrual/ovulation tracker Condoms with VCF contraceptive strips. 3) STD screening: Accepted STD check for Gonorrhea and Chlamydia. 4) Follow up one year or sooner as needed Isabella Yeboah APRN.CNP [facility] 06-21-2022 Instructions Isabella Yeboah APRN.CNP - 06/21/2022 11:18 AM EDT Menstrual/ovulation tracker Condoms with VCF contraceptive strips. 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 who presents for an annual gynecologic exam without complaints. Menses: cycles every 28-30 days and 3-5 days of flow. Contraception: none Happy if occurs HPV vaccine: Yes Last Pap: never HPV: N/A History of abnormal pap: No Last mammogram: never Sexually active: Yes History of STDS: None Patient concerns for STD exposure: No. Time with current partner: 2 years Pain with intercourse: No Postcoital bleeding: No OB History No obstetric history on file. 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 History LMP: 12/17/2021 (Exact Date), Having periods Age at Menarche: Age at First : Age at Menopause: 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 History Comments: Sexual Activity: Yes; No partner data on record Contraception: Pill PAST MEDICAL HISTORY Diagnosis Date Anxiety and depression Childhood overweight, BMI 85-94.9 percentile 08/2015 Iron deficiency anemia Iron deficiency anemia due to chronic blood loss 02/09/2021 Menarche 01/2013 PMH - PAST MEDICAL HISTORY OF 10/15/2006 normal color vision Ulcerative colitis (HCC) PAST SURGICAL HISTORY Procedure Laterality Date CAPSULE ENDOSCOPY SMALL BOWEL 01/25/2021 COLONOSCOPY GEN ANES 12/08/2020 EGD 12/08/2020 UNLISTED DIAGNOSTIC GASTROENTEROLOGY PROCEDURE 01/25/2021 FAMILY HISTORY Problem Relation Age of Onset Hypertension Mother other (gluten intolerance) Mother Hypertension Father Heart Sister murmur as an infant Diabetes Maternal Grandmother Hypertension Maternal Grandfather Heart Maternal Grandfather 60s other (Bladder cancer) Maternal Grandfather No Known Problems Paternal Grandmother Hypertension Paternal Grandfather Heart Paternal Grandfather age 52 [place]; adn MGGF SOCIAL HISTORY Social History Tobacco Use Smoking status: Never Smokeless tobacco: Never Vaping Use Vaping Use: Never used Substance Use Topics Alcohol use: Yes Comment: occasional Drug use: No REVIEW OF SYSTEMS Abdomen: No abdominal pain, nausea, vomiting, diarrhea, or constipation. No bloating, early satiety, indigestion, or increased flatulence. Bladder: No dysuria, gross hematuria, urinary frequency, urinary urgency, or incontinence. Breast: No breast lumps, nipple d/c, overlying skin changes, redness or skin retraction. Allergies and current medication updated:Yes EXAM: BP 144/82 Ht 5' 1.75 (1.57m) Wt 134 lb (60.8kg) LMP 06/11/2022 BMI 24.72 kg/(m^2). GENERAL: pleasant, female in no apparent distress HEENT: Normocephalic, atraumatic, mucus membranes moist, and no lesions NECK: Supple, no adenopathy, and thyroid normal DERMATOLOGY: Normal, without lesions, non-icteric, and non-hirsute BREAST: soft, non-tender, symmetric, no dominant mass, normal nipple-areolar complex, no lymphadenopathy, and no nipple discharge CHEST: Normal inspiratory effort ABDOMEN: soft, non-tender, and no masses PELVIC: external genitalia normal, normal Bartholin's glands, urethra, Wartburg's glands, no vulvar lesions, no cervical lesions, good vaginal support, physiologic discharge present, normal appearing perineal body and perianal region BIMANUAL: uterus normal size, shape and consistency, no adnexal masses, and non-tender RECTOVAGINAL: deferred. NEURO: alert and oriented x3,exam grossly non-focal EXTREMITIES: normal ASSESSMENT/PLAN: 1) Health maintenance: Pap done with reflex HPV. Immunocompromised due to Humira biologic. Discussed that per current guidelines, she will need Pap cytology annually for 3 years then every 3 years until she is 31. Nutrition, exercise and routine health maintenance exams reviewed. HPV vaccine: completed series 2) Contraception: none. Contraceptive options reviewed and information provided. Recommend Menstrual/ovulation tracker Condoms with VCF contraceptive strips. 3) STD screening: Accepted STD check for Gonorrhea and Chlamydia. 4) Follow up one year or sooner as needed Isabella Yeboah APRN.MAURILIO documented in this encounter [facility] 06-10-2022 Note HNO ID: [id number] Author: Giana Saleh PA-C Service: ? Author Type: Physician Hide Stretcher Hand Type: Progress Notes Filed: 06/10/2022 12:17 PM Note Text: CHIEF COMPLAINT: Patient presents with: Recheck: No concerns. Stool 05/31/22 HPI Radha Barnes is a 22 year old female here today for Recheck (No concerns. Stool 05/31/22). Dx with ulcerative pancolitis 12/08/2020. Was having minimal improvement in inflammatory levels with mesalamine, so advised switch to Humira. Started injections 10/12/2021 and clinically felt well. Recent addison 05/2022 significantly elevated, prescribed course of prednisone, C. Diff neg. Bms are currently 2-3 per day, formed consistency, no blood. Reports prior to prednisone she was having more regular mushy/loose stools. Admits to increase in her stress lately and recent stomach bug. Denies abd. Component Latest Ref Rng AND Units 05/28/2022 05/31/2022 Calprotectin, Fecal 0 - 50 mg/kg 2,109.4 (H) C. difficile PCR Negative for C. difficile toxin by PCR Negative for C. difficile toxin by PCR OV 11/2021 Radha Barnes is a 21 year old female here today for Recheck (No concerns). Dx with ulcerative pancolitis 12/08/2020. Was having minimal improvement in inflammatory levels with mesalamine, so advised switch to Humira. Started injections 10/12/2021. Following with Dr. Rico for MORGAN. States she was a little constipated after finishing prednisone taper. Starting to notice significant improvement with the Humira. Bms are currently 1-2 per day, more mushy/formed consistency, no blood. Current Outpatient Medications Medication Sig predniSONE (DELTASONE) 10 mg tablet Take 4 tablets by mouth once daily for 7 days, THEN 3 tablets once daily for 7 days, THEN 2 tablets once daily for 7 days, THEN 1 tablet once daily for 7 days. adalimumab 40 mg/0.4 mL subcutaneous pen kit (HUMIRA (CF)) Inject 40 mg subcutaneously every 2 weeks. ferrous sulfate 325 mg (65 mg iron) tablet Take 1 tablet by mouth daily with breakfast. (Patient not taking: Reported on 05/01/2022) No current facility-administered medications for this visit. ALLERGIES No Known Allergies Social History Tobacco Use Smoking status: Never Smokeless tobacco: Never Vaping Use Vaping Use: Never used Substance Use Topics Alcohol use: Yes Comment: occasional Drug use: No PAST MEDICAL HISTORY Diagnosis Date Anxiety and depression Childhood overweight, BMI 85-94.9 percentile 08/2015 Iron deficiency anemia Iron deficiency anemia due to chronic blood loss 02/09/2021 Menarche 01/2013 PMH - PAST MEDICAL HISTORY OF 10/15/2006 normal color vision Ulcerative colitis (HCC) PAST SURGICAL HISTORY Procedure Laterality Date CAPSULE ENDOSCOPY SMALL BOWEL 01/25/2021 COLONOSCOPY GEN ANES 12/08/2020 EGD 12/08/2020 UNLISTED DIAGNOSTIC GASTROENTEROLOGY PROCEDURE 01/25/2021 FAMILY HISTORY Problem Relation Age of Onset Hypertension Mother other (gluten intolerance) Mother Hypertension Father Heart Sister murmur as an infant Diabetes Maternal Grandmother Hypertension Maternal Grandfather Heart Maternal Grandfather 60s other (Bladder cancer) Maternal Grandfather No Known Problems Paternal Grandmother Hypertension Paternal Grandfather Heart Paternal Grandfather age 52 [place]; adn MGGF REVIEW OF SYSTEMS Review of Systems All other systems reviewed and are negative. PHYSICAL EXAM BP 116/74 Pulse 64 Ht 154.9 cm (5' 1 ) Wt 61.7 kg (136 lb) LMP 12/17/2021 (Exact Date) BMI 25.70 kg/m? Physical Exam Constitutional: General: She is not in acute distress. Appearance: Normal appearance. She is normal weight. She is not ill-appearing, toxic-appearing or diaphoretic. HENT: Head: Normocephalic and atraumatic. Nose: Nose normal. Eyes: General: No scleral icterus. Right eye: No discharge. Left eye: No discharge. Extraocular Movements: Extraocular movements intact. Conjunctiva/sclera: Conjunctivae normal. Pupils: Pupils are equal, round, and reactive to light. Cardiovascular: Rate and Rhythm: Normal rate and regular rhythm. Pulses: Normal pulses. Heart sounds: Normal heart sounds. No murmur heard. No friction rub. No gallop. Pulmonary: Effort: No respiratory distress. Breath sounds: Normal breath sounds. No stridor. No wheezing, rhonchi or rales. Chest: Chest wall: No tenderness. Abdominal: General: Abdomen is flat. Bowel sounds are normal. There is no distension. Palpations: Abdomen is soft. There is no mass. Tenderness: There is no abdominal tenderness. There is no right CVA tenderness, left CVA tenderness, guarding or rebound. Hernia: No hernia is present. Musculoskeletal: General: Normal range of motion. Cervical back: Normal range of motion and neck supple. Skin: General: Skin is warm and dry. Neurological: General: No focal deficit present. Mental Status: She is alert and oriented to person, place, and time. Psych (more content not included)... [facility] 06-10-2022 Instructions Giana Saleh PA-C - 06/10/2022 11:51 AM EDT Images from the original note were not included. - Start OTC probiotic with at least 15 billion live cultures, 10+ strains - Drink around 64 oz water daily Bowel Preparation Instructions for: Miralax-Gatorade Preparations IF YOU DO NOT FOLLOW THESE DIRECTIONS, YOUR COLONOSCOPY WILL BE CANCELLED. [place] Instructions: Your bowel must be empty so that your doctor can clearly view your colon. Follow all of the instructions in this handout EXACTLY as they are written. Do NOT eat any solid food the ENTIRE day before your colonoscopy. Buy your bowel preparation at least 5 days before your colonoscopy. Four (4) Dulcolax laxative tablets containing 5mg of bisacodyl each (NOT Dulcolax stool softener) One (1) 8.3oz. bottle Miralax (238 grams) or generic equivalent 2 x 32oz. Bottles of Gatorade (NOT RED) Diabetic Patients: Use G2 (Gatorade 2) TRANSPORTATION on the Day of Your Exam A responsible adult MUST be present with you at Check In prior to your colonoscopy and REMAIN in the endoscopy area until you are discharged. You are NOT ALLOWED to drive, take a taxi or bus, or leave the Endoscopy Center ALONE. If you do not have a responsible security patrol driver (family member or friend) with you to take you home, your exam cannot be done with sedation and will be cancelled. Please bring a list of all of your current medications, including any Anso-qsi-Ufxzsxs medications with you. Medications If you take insulin, diabetic medications or blood thinners such as Coumadin (warfarin), Plavix (clopidogrel), Ticlid (ticlopidine hydrochloride), Agrylin (anagrelide), Xarelto (Rivaroxaban), Pradaxa (Dabigatran), Eliquis (Apixaban), and Effient (Prasugrel). You MUST call the doctors who orders those medicines for instructions on altering the dosage before your colonoscopy. All other medications should be taken the day of the exam with a sip of water including ASPIRIN. Five (5) Days Before Your Colonoscopy Do NOT take medicines that stop diarrhea - such as Imodium, Kaopectate, or Pepto Bismol. Do NOT take fiber supplements - such as Metamucil, Citrucel, or Perdiem. Do NOT take products that contain iron - such as multi-vitamins (the label lists what is in the products). Three (3) Days Before Your Colonoscopy Do NOT eat high-fiber foods - such as popcorn, beans, seeds (flax, sunflower, quinoa), multigrain bread, nuts, salad/vegetables, or fresh and dried fruit. 1 Bowel Preparation Instructions for: Miralax-Gatorade Preparations One (1) Day Before Your Colonoscopy Only drink clear liquids the ENTIRE DAY before your colonoscopy. Do NOT eat any solid foods. Drink at least 8 ounces of clear liquids every hour after waking up. The clear liquids you can drink include: Clear Liquid (NO RED LIQUIDS) DO NOT DRINK Gatorade, Pedialyte or Powerade Clear broth or bouillon Coffee or tea (no milk or non-dairy creamer) Carbonated and non-carbonated soft drinks Qasim-Aid or other fruit flavored drinks Strained fruit juices (no pulp) Jell-O, popsicles, hard candy Water Alcohol Milk or non-dairy creamers Noodles or vegetables in soup Juice with pulp Liquid you cannot see through Do not use tobacco/vaping products Mix 1/2 of Miralax bottle (119 grams) in each 32 ounces of Gatorade bottle until dissolved. Keep cool in the refrigerator. DO NOT ADD ICE. The bowel preparation solution will be consumed in two parts. Part 1 5:00 PM - Evening before your colonoscopy Take 4 Dulcolax tablets. 6 PM - Evening before your colonoscopy Drink 32 oz. of the mixed solution. Drink an 8 oz. glass of bowel preparation every 15 minutes for a total of 4 glasses. Fifteen (15) minutes later, drink an 8 oz. glass of of clear liquids every 15 minutes for a total of 2 glasses. You may continue to drink clear liquids till midnight. Part 2 On the day of your colonoscopy you may drink clear liquids up to (three) 3 hours prior to procedure. 4 1/2 hours before your colonoscopy Take another 32 oz. bottle of mixed solution. Drink an 8 oz. glass of bowel prep every 15 minutes for a total of 4 glasses. Fifteen (15) minutes later, drink an 8 oz. glass of clear liquids every 15 minutes for a total of 2 glasses. You may continue to drink clear liquids up to (three) 3 hours before your exam. 2 02/2019 documented in this encounter [facility] 06-10-2022 History of Presen t illness Narrative CHIEF COMPLAINT: Patient presents with: Recheck: No concerns. Stool 05/31/22 HPI Radha Barnes is a 22 year old female here today for Recheck (No concerns. Stool 05/31/22). Dx with ulcerative pancolitis 12/08/2020. Was having minimal improvement in inflammatory levels with mesalamine, so advised switch to Humira. Started injections 10/12/2021 and clinically felt well. Recent addison 05/2022 significantly elevated, prescribed course of prednisone, C. Diff neg. Bms are currently 2-3 per day, formed consistency, no blood. Reports prior to prednisone she was having more regular mushy/loose stools. Admits to increase in her stress lately and recent stomach bug. Denies abd. Component Latest Ref Rng & Units 05/28/2022 05/31/2022 Calprotectin, Fecal 0 - 50 mg/kg 2,109.4 (H) C. difficile PCR Negative for C. difficile toxin by PCR Negative for C. difficile toxin by PCR OV 11/2021 Radha Barnes is a 21 year old female here today for Recheck (No concerns). Dx with ulcerative pancolitis 12/08/2020. Was having minimal improvement in inflammatory levels with mesalamine, so advised switch to Humira. Started injections 10/12/2021. Following with Dr. Rico for MORGAN. States she was a little constipated after finishing prednisone taper. Starting to notice significant improvement with the Humira. Bms are currently 1-2 per day, more mushy/formed consistency, no blood. Current Outpatient Medications Medication Sig predniSONE (DELTASONE) 10 mg tablet Take 4 tablets by mouth once daily for 7 days, THEN 3 tablets once daily for 7 days, THEN 2 tablets once daily for 7 days, THEN 1 tablet once daily for 7 days. adalimumab 40 mg/0.4 mL subcutaneous pen kit (HUMIRA (CF)) Inject 40 mg subcutaneously every 2 weeks. ferrous sulfate 325 mg (65 mg iron) tablet Take 1 tablet by mouth daily with breakfast. (Patient not taking: Reported on 05/01/2022) No current facility-administered medications for this visit. ALLERGIES No Known Allergies Social History Tobacco Use Smoking status: Never Smokeless tobacco: Never Vaping Use Vaping Use: Never used Substance Use Topics Alcohol use: Yes Comment: occasional Drug use: No PAST MEDICAL HISTORY Diagnosis Date Anxiety and depression Childhood overweight, BMI 85-94.9 percentile 08/2015 Iron deficiency anemia Iron deficiency anemia due to chronic blood loss 02/09/2021 Menarche 01/2013 PMH - PAST MEDICAL HISTORY OF 10/15/2006 normal color vision Ulcerative colitis (HCC) PAST SURGICAL HISTORY Procedure Laterality Date CAPSULE ENDOSCOPY SMALL BOWEL 01/25/2021 COLONOSCOPY GEN ANES 12/08/2020 EGD 12/08/2020 UNLISTED DIAGNOSTIC GASTROENTEROLOGY PROCEDURE 01/25/2021 FAMILY HISTORY Problem Relation Age of Onset Hypertension Mother other (gluten intolerance) Mother Hypertension Father Heart Sister murmur as an infant Diabetes Maternal Grandmother Hypertension Maternal Grandfather Heart Maternal Grandfather 60s other (Bladder cancer) Maternal Grandfather No Known Problems Paternal Grandmother Hypertension Paternal Grandfather Heart Paternal Grandfather age 52 [place]; adn MGGF REVIEW OF SYSTEMS Review of Systems All other systems reviewed and are negative. PHYSICAL EXAM BP 116/74 Pulse 64 Ht 154.9 cm (5' 1 ) Wt 61.7 kg (136 lb) LMP 12/17/2021 (Exact Date) BMI 25.70 kg/m Physical Exam Constitutional: General: She is not in acute distress. Appearance: Normal appearance. She is normal weight. She is not ill-appearing, toxic-appearing or diaphoretic. HENT: Head: Normocephalic and atraumatic. Nose: Nose normal. Eyes: General: No scleral icterus. Right eye: No discharge. Left eye: No discharge. Extraocular Movements: Extraocular movements intact. Conjunctiva/sclera: Conjunctivae normal. Pupils: Pupils are equal, round, and reactive to light. Cardiovascular: Rate and Rhythm: Normal rate and regular rhythm. Pulses: Normal pulses. Heart sounds: Normal heart sounds. No murmur heard. No friction rub. No gallop. Pulmonary: Effort: No respiratory distress. Breath sounds: Normal breath sounds. No stridor. No wheezing, rhonchi or rales. Chest: Chest wall: No tenderness. Abdominal: General: Abdomen is flat. Bowel sounds are normal. There is no distension. Palpations: Abdomen is soft. There is no mass. Tenderness: There is no abdominal tenderness. There is no right CVA tenderness, left CVA tenderness, guarding or rebound. Hernia: No hernia is present. Musculoskeletal: General: Normal range of motion. Cervical back: Normal range of motion and neck supple. Skin: General: Skin is warm and dry. Neurological: General: No focal deficit present. Mental Status: She is alert and oriented to person, place, and time. Psychiatric: Mood and Affect: Mood normal. Behavior: Behavior normal. Assessment/Plan (K51.011) Ulcerative pancolitis with rectal bleeding (HCC) (primary encounter diagnosis) (Z11.59) Encounter for screening for other viral diseases 1. Ulcerative pancolitis with rectal bleeding (HCC) - COLONOSCOPY DIAGNOSTIC; Future - On prednisone taper since 05/2022 with clinical improvement in sx - Start OTC probiotic with at least 15 billion live cultures, 10+ strains - Drink around 64 oz water daily - Low fiber diet, avoid uncooked fruits/vegetables - Obtain updated colonoscopy due to concern for lack of control in UC with humira, will check drug levels 2. Encounter for screening for other viral diseases - HEP B SURF AG SCRN; Future - BLOOD TB SCREEN, INCUBATED; Future I spent a total of 15 minutes on the date of the service which included preparing to see the patient, [id number] patient care, completing clinical documentation, obtaining and/or reviewing separately obtained history, performing a medically appropriate examination, counseling and educating the patient/family/caregiver, ordering medications, tests, or procedures, communicating with other HCPs (not separately reported), independently interpreting results (not separately reported), communicating results to the patient/family/caregiver, and care coordination (not separately reported). Giana Saleh PA-C June 10, 2022 11:55 AM documented in this encounter [facility] 05-30-2022 Miscellaneous Notes Addended by: GIANA SALEH on: 05/30/2022 10:14 AM Modules accepted: Orders documented in this encounter [facility] 05-01-2022 Note HNO ID: [id number] Author: Braden Hammonds APRN.ENGINEERING RECRUITER Service: ? Author Type: Nurse Practitioner Type: Progress Notes Filed: 05/01/2022 10:51 AM Note Text: Subjective HPI Nontoxic-appearing female presents urgent care chief complaint sore throat runny nose. Duration of symptoms 2 days. Associated symptoms sore throat runny nose bilateral ear pain and slight cough. No known sick contacts. 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 Has not taken any OTC medications. Most bothersome symptom today is body aches. No recorded fevers. Denies any fever body aches chills productive cough chest pain shortness of breath pleuritic pain hemoptysis nausea vomiting abdominal pain change in bowel or bladder habits. Past medical history prescription medication use and allergies reviewed. History of ulcerative colitis. Uses Humira. This has been well controlled. .Patient presents with: Sore Throat: ST, runny nose, bilateral ear pain and bodyaches x 2 days PAST MEDICAL HISTORY Diagnosis Date Anxiety and depression Childhood overweight, BMI 85-94.9 percentile 08/2015 Iron deficiency anemia Iron deficiency anemia due to chronic blood loss 02/09/2021 Menarche 01/2013 PMH - PAST MEDICAL HISTORY OF 10/15/2006 normal color vision Ulcerative colitis (HCC) PAST SURGICAL HISTORY Procedure Laterality Date CAPSULE ENDOSCOPY SMALL BOWEL 01/25/2021 COLONOSCOPY GEN ANES 12/08/2020 EGD 12/08/2020 UNLISTED DIAGNOSTIC GASTROENTEROLOGY PROCEDURE 01/25/2021 ALLERGIES Patient has no known allergies. MEDICATIONS adalimumab 40 mg/0.4 mL subcutaneous pen kit (HUMIRA (CF)) Inject 40 mg subcutaneously every 2 weeks. ferrous sulfate 325 mg (65 mg iron) tablet Take 1 tablet by mouth daily with breakfast. (Patient not taking: Reported on 05/01/2022) FAMILY HISTORY Problem Relation Age of Onset Hypertension Mother other (gluten intolerance) Mother Hypertension Father Heart Sister murmur as an infant Diabetes Maternal Grandmother Hypertension Maternal Grandfather Heart Maternal Grandfather 60s other (Bladder cancer) Maternal Grandfather No Known Problems Paternal Grandmother Hypertension Paternal Grandfather Heart Paternal Grandfather age 52 [place]; adn MGGF Social History Tobacco Use Smoking status: Never Smokeless tobacco: Never Vaping Use Vaping Use: Never used Substance Use Topics Alcohol use: Yes Comment: occasional Drug use: No BP 132/84 Pulse 116 Temp 36.9 ?C (98.5 ?F) (Tympanic) Resp 18 Wt 62.7 kg (138 lb 3.2 oz) LMP 12/17/2021 (Exact Date) SpO2 97% BMI 26.11 kg/m? Hr 96 Review of Systems Constitutional: Negative for chills, fever and malaise/fatigue. HENT: Positive for congestion, ear pain and sore throat. Negative for ear discharge and sinus pain. Eyes: Negative for blurred vision, pain, discharge and redness. Respiratory: Negative for cough, hemoptysis, sputum production, shortness of breath, wheezing and stridor. Cardiovascular: Negative for chest pain. Gastrointestinal: Negative for abdominal pain, diarrhea, nausea and vomiting. Musculoskeletal: Negative for myalgias. Skin: Negative for itching and rash. Neurological: Positive for headaches. Negative for dizziness. Objective Physical Exam Constitutional: General: She is not in acute distress. Appearance: She is not diaphoretic. HENT: Head: Normocephalic. Right Ear: Tympanic membrane, ear canal and external ear normal. Left Ear: Tympanic membrane, ear canal and external ear normal. Nose: Congestion present. Mouth/Throat: Mouth: Mucous membranes are moist. Pharynx: Oropharynx is clear. No oropharyngeal exudate or posterior oropharyngeal erythema. Eyes: Conjunctiva/sclera: Conjunctivae normal. Pupils: Pupils are equal, round, and reactive to light. Cardiovascular: Rate and Rhythm: Normal rate and regular rhythm. Heart sounds: Normal heart sounds. Pulmonary: Effort: Pulmonary effort is normal. No tachypnea, accessory muscle usage or respiratory distress. Breath sounds: Normal breath sounds. No stridor. No wheezing, rhonchi or rales. Abdominal: General: There is no distension. Palpations: Abdomen is soft. Tenderness: There is no abdominal tenderness. There is no guarding or rebound. Musculoskeletal: Cervical back: Normal range of motion and neck supple. No rigidity or tenderness. Lymphadenopathy: Cervical: No cervical adenopathy. Skin: General: Skin is warm and dry. Neurological: Mental Status: She is alert and oriented to person, place, and time. ASSESSMENT/PLAN: 1. Sore throat - ICD9: 462, ICD10: J02.9 (primary diagnosis) - STREP A MOLECULAR (POC) 2. Viral URI - ICD9: 465.9, ICD10: J06.9 - Discussed viral etiology and rationale for treatment. - Symptomatic treatment with prn analgesia - Supportive care with fluids and rest Strep test negative. Follow-up with PCP 3 to 5 days. Patient was educated on supportive therapies. (more content not included)... [facility] 05-01-2022 History of Presen t illness Narrative Subjective HPI Nontoxic-appearing female presents urgent care chief complaint sore throat runny nose. Duration of symptoms 2 days. Associated symptoms sore throat runny nose bilateral ear pain and slight cough. No known sick contacts. 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 Has not taken any OTC medications. Most bothersome symptom today is body aches. No recorded fevers. Denies any fever body aches chills productive cough chest pain shortness of breath pleuritic pain hemoptysis nausea vomiting abdominal pain change in bowel or bladder habits. Past medical history prescription medication use and allergies reviewed. History of ulcerative colitis. Uses Humira. This has been well controlled. .Patient presents with: Sore Throat: ST, runny nose, bilateral ear pain and bodyaches x 2 days PAST MEDICAL HISTORY Diagnosis Date Anxiety and depression Childhood overweight, BMI 85-94.9 percentile 08/2015 Iron deficiency anemia Iron deficiency anemia due to chronic blood loss 02/09/2021 Menarche 01/2013 PMH - PAST MEDICAL HISTORY OF 10/15/2006 normal color vision Ulcerative colitis (HCC) PAST SURGICAL HISTORY Procedure Laterality Date CAPSULE ENDOSCOPY SMALL BOWEL 01/25/2021 COLONOSCOPY GEN ANES 12/08/2020 EGD 12/08/2020 UNLISTED DIAGNOSTIC GASTROENTEROLOGY PROCEDURE 01/25/2021 ALLERGIES Patient has no known allergies. MEDICATIONS adalimumab 40 mg/0.4 mL subcutaneous pen kit (HUMIRA (CF)) Inject 40 mg subcutaneously every 2 weeks. ferrous sulfate 325 mg (65 mg iron) tablet Take 1 tablet by mouth daily with breakfast. (Patient not taking: Reported on 05/01/2022) FAMILY HISTORY Problem Relation Age of Onset Hypertension Mother other (gluten intolerance) Mother Hypertension Father Heart Sister murmur as an infant Diabetes Maternal Grandmother Hypertension Maternal Grandfather Heart Maternal Grandfather 60s other (Bladder cancer) Maternal Grandfather No Known Problems Paternal Grandmother Hypertension Paternal Grandfather Heart Paternal Grandfather age 52 [place]; adn MGGF Social History Tobacco Use Smoking status: Never Smokeless tobacco: Never Vaping Use Vaping Use: Never used Substance Use Topics Alcohol use: Yes Comment: occasional Drug use: No BP 132/84 Pulse 116 Temp 36.9 C (98.5 F) (Tympanic) Resp 18 Wt 62.7 kg (138 lb 3.2 oz) LMP 12/17/2021 (Exact Date) SpO2 97% BMI 26.11 kg/m Hr 96 Review of Systems Constitutional: Negative for chills, fever and malaise/fatigue. HENT: Positive for congestion, ear pain and sore throat. Negative for ear discharge and sinus pain. Eyes: Negative for blurred vision, pain, discharge and redness. Respiratory: Negative for cough, hemoptysis, sputum production, shortness of breath, wheezing and stridor. Cardiovascular: Negative for chest pain. Gastrointestinal: Negative for abdominal pain, diarrhea, nausea and vomiting. Musculoskeletal: Negative for myalgias. Skin: Negative for itching and rash. Neurological: Positive for headaches. Negative for dizziness. Objective Physical Exam Constitutional: General: She is not in acute distress. Appearance: She is not diaphoretic. HENT: Head: Normocephalic. Right Ear: Tympanic membrane, ear canal and external ear normal. Left Ear: Tympanic membrane, ear canal and external ear normal. Nose: Congestion present. Mouth/Throat: Mouth: Mucous membranes are moist. Pharynx: Oropharynx is clear. No oropharyngeal exudate or posterior oropharyngeal erythema. Eyes: Conjunctiva/sclera: Conjunctivae normal. Pupils: Pupils are equal, round, and reactive to light. Cardiovascular: Rate and Rhythm: Normal rate and regular rhythm. Heart sounds: Normal heart sounds. Pulmonary: Effort: Pulmonary effort is normal. No tachypnea, accessory muscle usage or respiratory distress. Breath sounds: Normal breath sounds. No stridor. No wheezing, rhonchi or rales. Abdominal: General: There is no distension. Palpations: Abdomen is soft. Tenderness: There is no abdominal tenderness. There is no guarding or rebound. Musculoskeletal: Cervical back: Normal range of motion and neck supple. No rigidity or tenderness. Lymphadenopathy: Cervical: No cervical adenopathy. Skin: General: Skin is warm and dry. Neurological: Mental Status: She is alert and oriented to person, place, and time. ASSESSMENT/PLAN: 1. Sore throat - ICD9: 462, ICD10: J02.9 (primary diagnosis) - STREP A MOLECULAR (POC) 2. Viral URI - ICD9: 465.9, ICD10: J06.9 - Discussed viral etiology and rationale for treatment. - Symptomatic treatment with prn analgesia - Supportive care with fluids and rest Strep test negative. Follow-up with PCP 3 to 5 days. Patient was educated on supportive therapies. Patient was instructed to immediately proceed to emergency room for any new, worsening, or symptoms lasting longer than anticipated. The patient's clinical presentation is otherwise unremarkable at this time. Based on exam and clinical finding, the patient is stable for discharge. Plan of care was discussed with patient. Patient verbalizes understanding and agrees to plan of care. This note was generated using [employer] software. It may contain errors in wording, punctuation, or spelling. Braden Hammonds APRN.MAURILIO documented in this encounter [facility] 03-20-2022 Miscellaneous Notes Pt called in and was asking if we could print out physical from Dr Ford done on 05/11/21. She states she needs to bring it to her work. Form placed in front office on [facility] for Pt to last picker. documented in this encounter [facility] 03-15-2022 Miscellaneous Notes Nenita HAUSER approval CaseId:[id number];Status:Approved; Review Type:Prior Auth;Coverage Start Date:02/13/2022;Coverage End Date:03/15/2023;;CaseId:[id number] ;Status:Cancelled;Explanation:PA not Required.The Prescribed limit is below the plan limit; Mary Pozo CMA documented in this encounter [facility] 02-28-2022 Note HNO ID: [id number] Author: Ana Rico MD Service: ? Author Type: Physician Type: Progress Notes Filed: 02/28/2022 3:32 PM Note Text: Radha Barnes 2000 February 28, 2022 HPI: Radha Barnes is a 21 year old female with iron deficiency anemia secondary to ulcerative colitis and menorrhagia. She was referred by Giana Saleh PA-C for evaluation of anemia. She has had bloody bowel movement and lower abdominal pain since 03/2020. Colonoscopy 12/08/2020 demonstrated active pancolitis. Unremarkable EGD. She was started on Mesalamine for ulcerative colitis. On ferrous sulfate 325 mg TID since 10/2020. Lab work on 01/19/21 showed hemoglobin 8.7, MCV 77.2, platelets 574, normal WBC, ferritin 16, transferrin saturation 4%. Received IV Monoferric 02/23/2021. No acute complications. Interval History: She presents today for follow-up of iron deficiency anemia. She takes oral iron occasionally. On Humira for ulcerative colitis. No bloody bowel movements. Heavy menstrual flow. Reports fatigue and headaches. No unintentional weight loss, chest pain, shortness of breath, nausea, vomiting, abdominal pain. 02/11/22: Hgb 13, PLT 452K, ferritin 24.1, iron 32, transferrin saturation 10%. PAST MEDICAL HISTORY Diagnosis Date Anxiety and depression Childhood overweight, BMI 85-94.9 percentile 08/2015 Iron deficiency anemia Iron deficiency anemia due to chronic blood loss 02/09/2021 Menarche 01/2013 PMH - PAST MEDICAL HISTORY OF 10/15/2006 normal color vision Ulcerative colitis (HCC) PAST SURGICAL HISTORY Procedure Laterality Date CAPSULE ENDOSCOPY SMALL BOWEL 01/25/2021 COLONOSCOPY GEN ANES 12/08/2020 EGD 12/08/2020 UNLISTED DIAGNOSTIC GASTROENTEROLOGY PROCEDURE 01/25/2021 Current Outpatient Medications Medication Sig Dispense Refill ferrous sulfate 325 mg (65 mg iron) tablet Take 1 tablet by mouth daily with breakfast. 90 tablet 3 adalimumab 40 mg/0.4 mL subcutaneous pen kit (HUMIRA (CF)) Inject 40 mg subcutaneously every 2 weeks. 1 Kit 11 No current facility-administered medications for this visit. ALLERGIES No Known Allergies FAMILY HISTORY Problem Relation Age of Onset Hypertension Mother other (gluten intolerance) Mother Hypertension Father Heart Sister murmur as an Diabetes Maternal Grandmother Hypertension Maternal Grandfather Heart Maternal Grandfather 60s other (Bladder cancer) Maternal Grandfather No Known Problems Paternal Grandmother Hypertension Paternal Grandfather Heart Paternal Grandfather age 52 [place]; adn MGGF Social History Tobacco Use Smoking status: Never Smokeless tobacco: Never Vaping Use Vaping Use: Never used Substance Use Topics Alcohol use: Yes Comment: occasional Drug use: No I have confirmed and edited as necessary, the PFSH and ROS obtained by others on 02/28/2022. Review of Systems: All systems reviewed on 02/28/2022 with pertinent positives and negatives as outlined in HPI or interval history. 02/28/22 0919 BP: 118/80 Pulse: 98 Temp: 36.4 ?C (97.5 ?F) SpO2: 100% Weight: 66.2 kg (146 lb) Height: 154.9 cm (5' 1 ) Body mass index is 27.59 kg/m?. Physical Exam: ECOG PS: 0 Pain Intensity: 0 General: Age-appropriate well developed. NAD. HEENT: Normocephalic, no sclera icterus. Neck: Supple. Chest: Clear bilaterally, not labored. Heart: Normal S1 and S2, RRR Abdomen: Soft, nontender, nondistended, bowel sounds present. Extremities: No edema. Neurological: Grossly intact. Skin: No rashes or jaundice. Psychiatric: Alert and oriented. Appropriate mood and affect. Labs WBC (k/uL) Date Value 02/11/2022 8.67 RBC (m/uL) Date Value 02/11/2022 4.41 Hemoglobin (g/dL) Date Value 02/11/2022 13.0 Hematocrit (%) Date Value 02/11/2022 40.7 MCV (fL) Date Value 02/11/2022 92.3 MCH (pg) Date Value 02/11/2022 29.5 MCHC (g/dL) Date Value 02/11/2022 31.9 RDW-CV (%) Date Value 02/11/2022 13.3 Platelet Count (k/uL) Date Value 02/11/2022 452 (H) MPV (fL) Date Value 02/11/2022 10.0 Glucose (mg/dL) Date Value 09/27/2021 88 BUN (mg/dL) Date Value 09/27/2021 5 (L) Creatinine (mg/dL) Date Value 09/27/2021 0.62 Sodium (mmol/L) Date Value 09/27/2021 138 Potassium (mmol/L) Date Value 09/27/2021 3.5 (L) Chloride (mmol/L) Date Value 09/27/2021 103 CO2 (mmol/L) Date Value 09/27/2021 23 Protein, Total (g/dL) Date Value 09/27/2021 7.4 Albumin (g/dL) Date Value 09/27/2021 4.2 Calcium, Total (mg/dL) Date Value 09/27/2021 9.1 Alkaline Phosphatase (U/L) Date Value 09/27/2021 141 (H) Bilirubin, Total (mg/dL) Date Value 09/27/2021 0.2 AST (U/L) Date Value 09/27/2021 21 ALT (U/L) Date Value 09/27/2021 9 Assessment/Plan: 1. Iron deficiency anemia. - Likely secondary to bleeding and malabsorption from ulcerative pancolitis, and menorrhagia. - Was on ferrous sulfat (more content not included)... [facility] 02-28-2022 History of Presen t illness Narrative Radha Barnes 2000 February 28, 2022 HPI: Radha Barnes is a 21 year old female with iron deficiency anemia secondary to ulcerative colitis and menorrhagia. She was referred by Giana Saleh PA-C for evaluation of anemia. She has had bloody bowel movement and lower abdominal pain since 03/2020. Colonoscopy 12/08/2020 demonstrated active pancolitis. Unremarkable EGD. She was started on Mesalamine for ulcerative colitis. On ferrous sulfate 325 mg TID since 10/2020. Lab work on 01/19/21 showed hemoglobin 8.7, MCV 77.2, platelets 574, normal WBC, ferritin 16, transferrin saturation 4%. Received IV Monoferric 02/23/2021. No acute complications. Interval History: She presents today for follow-up of iron deficiency anemia. She takes oral iron occasionally. On Humira for ulcerative colitis. No bloody bowel movements. Heavy menstrual flow. Reports fatigue and headaches. No unintentional weight loss, chest pain, shortness of breath, nausea, vomiting, abdominal pain. 02/11/22: Hgb 13, PLT 452K, ferritin 24.1, iron 32, transferrin saturation 10%. PAST MEDICAL HISTORY Diagnosis Date Anxiety and depression Childhood overweight, BMI 85-94.9 percentile 08/2015 Iron deficiency anemia Iron deficiency anemia due to chronic blood loss 02/09/2021 Menarche 01/2013 [facility] - PAST MEDICAL HISTORY OF 10/15/2006 normal color vision Ulcerative colitis (HCC) PAST SURGICAL HISTORY Procedure Laterality Date CAPSULE ENDOSCOPY SMALL BOWEL 01/25/2021 COLONOSCOPY GEN ANES 12/08/2020 EGD 12/08/2020 UNLISTED DIAGNOSTIC GASTROENTEROLOGY PROCEDURE 01/25/2021 Current Outpatient Medications Medication Sig Dispense Refill ferrous sulfate 325 mg (65 mg iron) tablet Take 1 tablet by mouth daily with breakfast. 90 tablet 3 adalimumab 40 mg/0.4 mL subcutaneous pen kit (HUMIRA (CF)) Inject 40 mg subcutaneously every 2 weeks. 1 Kit 11 No current facility-administered medications for this visit. ALLERGIES No Known Allergies FAMILY HISTORY Problem Relation Age of Onset Hypertension Mother other (gluten intolerance) Mother Hypertension Father Heart Sister murmur as an infant Diabetes Maternal Grandmother Hypertension Maternal Grandfather Heart Maternal Grandfather 60s other (Bladder cancer) Maternal Grandfather No Known Problems Paternal Grandmother Hypertension Paternal Grandfather Heart Paternal Grandfather age 52 [place]; adn MGGF Social History Tobacco Use Smoking status: Never Smokeless tobacco: Never Vaping Use Vaping Use: Never used Substance Use Topics Alcohol use: Yes Comment: occasional Drug use: No I have confirmed and edited as necessary, the PFSH and ROS obtained by others on 02/28/2022. Review of Systems: All systems reviewed on 02/28/2022 with pertinent positives and negatives as outlined in HPI or interval history. 02/28/22 0919 BP: 118/80 Pulse: 98 Temp: 36.4 C (97.5 F) SpO2: 100% Weight: 66.2 kg (146 lb) Height: 154.9 cm (5' 1 ) Body mass index is 27.59 kg/m . Physical Exam: ECOG PS: 0 Pain Intensity: 0 General: Age-appropriate well developed. NAD. HEENT: Normocephalic, no sclera icterus. Neck: Supple. Chest: Clear bilaterally, not labored. Heart: Normal S1 and S2, RRR Abdomen: Soft, nontender, nondistended, bowel sounds present. Extremities: No edema. Neurological: Grossly intact. Skin: No rashes or jaundice. Psychiatric: Alert and oriented. Appropriate mood and affect. Labs WBC (k/uL) Date Value 02/11/2022 8.67 RBC (m/uL) Date Value 02/11/2022 4.41 Hemoglobin (g/dL) Date Value 02/11/2022 13.0 Hematocrit (%) Date Value 02/11/2022 40.7 MCV (fL) Date Value 02/11/2022 92.3 MCH (pg) Date Value 02/11/2022 29.5 MCHC (g/dL) Date Value 02/11/2022 31.9 RDW-CV (%) Date Value 02/11/2022 13.3 Platelet Count (k/uL) Date Value 02/11/2022 452 (H) MPV (fL) Date Value 02/11/2022 10.0 Glucose (mg/dL) Date Value 09/27/2021 88 BUN (mg/dL) Date Value 09/27/2021 5 (L) Creatinine (mg/dL) Date Value 09/27/2021 0.62 Sodium (mmol/L) Date Value 09/27/2021 138 Potassium (mmol/L) Date Value 09/27/2021 3.5 (L) Chloride (mmol/L) Date Value 09/27/2021 103 CO2 (mmol/L) Date Value 09/27/2021 23 Protein, Total (g/dL) Date Value 09/27/2021 7.4 Albumin (g/dL) Date Value 09/27/2021 4.2 Calcium, Total (mg/dL) Date Value 09/27/2021 9.1 Alkaline Phosphatase (U/L) Date Value 09/27/2021 141 (H) Bilirubin, Total (mg/dL) Date Value 09/27/2021 0.2 AST (U/L) Date Value 09/27/2021 21 ALT (U/L) Date Value 09/27/2021 9 Assessment/Plan: 1. Iron deficiency anemia. - Likely secondary to bleeding and malabsorption from ulcerative pancolitis, and menorrhagia. - Was on ferrous sulfate 325 mg TID, still has severe MORGAN. - Received IV Monoferric 1000 mg on 02/23/21, responded well. - 02/11/22: Hgb 13, PLT 452K, ferritin 24.1, iron 32, transferrin saturation 10%. - Schedule IV Monoferric 1000 mg. Continue intermittent oral iron supplement. 2. Thrombocytosis. - Likely secondary to iron deficiency anemia and/or UC. 3. Ulcerative pancolitis with rectal bleeding. - s/p EGD and colonoscopy 12/2020, capsule endoscopy 01/2021. - Symptom improved on Humira. - Follows with Dr. Adams and Giana Saleh PA-C. 4. Menorrhagia. Follow up in 4 months. Check CBC, ferritin and iron+TIBC prior to visit. Call for questions or concerns. Ana Rico MD Portions of this note including ROS, impression/plan, and examination may have been copied forward as to provide important historical information essential in contributing to medical decision making. Documentation has been reviewed and edited as necessary to support clinical decision making for today's visit 02/28/2022. Medical Decision Making: Problems: Moderate: 1+ chronic illnesses with change Data: Unique test result(s) reviewed: 3+ Unique test(s) ordered: 3+ Risk: Moderate: Drug management Medical Decision Making Level: 4 - Moderate documented in this encounter [facility] 01-02-2022 History of Presen t illness Narrative Reason for Visit Patient presents with: Same Day Appointment: passed out at work, hot flash and lightheaded and dizzy Radha Barnes is a 21 year old female who presents here today for Above Complaints.. Health Maintenance HEPATITIS A(1 of 2 - Risk 2-dose series) PNEUMOCOCCAL(1 - PCV) MENINGOCOCCAL B: Consider based on risk(1 of 4 - Increased Risk Bexsero 2-dose series) GC (GONORRHEA) SCREENING (-) CHLAMYDIA SCREENING (-) SHINGRIX VACCINE(1 of 2) HPI Pancolitis: she is on humira since october and doing well. No blood in stool, diarrhea, joint pint. No side effects from medications. At the beginning of the month, december, she was starte don on prednisone as she had the flare up. Flare- abdominal pain, diarrhea, and her GI doc asked her to go to the ER and she was put on pred. For a month. 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 She does not feel herself Ph9. 3, 3, 3, 3, 0,3,3,0,0- she is moderates severe depressed. She is finding it extremely difficult to do her work due to all these issues. She was put on sertraline last visit and she did not know what the cause was, as she passed out a few days after starting the medication, so he stopped the medication, she did start feeling better on it though Patient notes she was fine all day, started work and 45 mins after than she was sitting down and started to have a hot flash, she was feeling dizzy, and then she passed out. Head hit the floor, she did not have a accident at that time. She was not on the floor that long when she had to use the restroom. And then she started feeling a hot flash again and then dizzy. She had little smokies wrapped with carver. She works at [employer]. This happened on dec 25. Patient was on 40 mgs of prednisone at that time. Denies palpitation when she had that episode. Her water content is 2 water bottles a day. She does not drink any coffee , tea or chocolate. In the past she was on sertraline. She is willing to go back on it. She has never had a reaction at that time. No problem-specific Assessment & Plan notes found for this encounter. PAST MEDICAL HISTORY Diagnosis Date Anxiety and depression Childhood overweight, BMI 85-94.9 percentile 08/2015 Iron deficiency anemia Iron deficiency anemia due to chronic blood loss 02/09/2021 Menarche 01/2013 PMH - PAST MEDICAL HISTORY OF 10/15/2006 normal color vision Ulcerative colitis (HCC) PAST SURGICAL HISTORY Procedure Laterality Date CAPSULE ENDOSCOPY SMALL BOWEL 01/25/2021 COLONOSCOPY GEN ANES 12/08/2020 EGD 12/08/2020 UNLISTED DIAGNOSTIC GASTROENTEROLOGY PROCEDURE 01/25/2021 FAMILY HISTORY Problem Relation Age of Onset Hypertension Mother other (gluten intolerance) Mother Hypertension Father Heart Sister murmur as an infant Diabetes Maternal Grandmother Hypertension Maternal Grandfather Heart Maternal Grandfather 60s other (Bladder cancer) Maternal Grandfather No Known Problems Paternal Grandmother Hypertension Paternal Grandfather Heart Paternal Grandfather age 52 [place]; adn MGGF Social History Tobacco Use Smoking status: Never Smokeless tobacco: Never Vaping Use Vaping Use: Never used Substance Use Topics Alcohol use: Yes Comment: occasional Drug use: No Past medical history, appointments, medications, allergies reviewed. Pertinent Lab/Diagnostic Studies are reviewed and discussed today Current Outpatient Medications: sertraline (ZOLOFT) 50 mg tablet predniSONE (DELTASONE) 10 mg tablet ferrous sulfate 325 mg (65 mg iron) tablet adalimumab 40 mg/0.4 mL subcutaneous pen kit (HUMIRA (CF)) ergocalciferol 50,000 unit capsule (VITAMIN D2, DRISDOL) Review of Systems CONSTITUTIONAL: No fevers, chills night sweats, unintended weight loss CARDIOVASCULAR: No chest pain, dyspnea, palpitations, orthopnea, PND, ankle edema. PULM: No dyspnea, unexplained cough. GI: No dysphagia/odynophagia, problematic reflux, constipation, diarrhea, changes in stool habits, hematochezia, melena. : No new urinary complaints, including dysuria, gross hematuria or pyuria. NEURO: No new balance problems, peripheral weakness/paresthesias or numbness of concern. Physical Exam BP 118/60 (BP Site: Left Arm, BP Position: Sitting, BP Cuff Size: Large Adult) Pulse 77 Temp 37.2 C (99 F) Resp 12 Ht 154.9 cm (5' 1 ) Wt 65.8 kg (145 lb) LMP 12/17/2021 (Exact Date) SpO2 97% BMI 27.40 kg/m General appearance: Well appearing, alert, in no acute distress, well nourished. Skin: Skin color, texture, turgor normal, no suspicious rashes or lesions Head: Normocephalic, no masses, lesions, tenderness or abnormalities Eyes: Anicteric sclera. Pupils are equally round and reactive to light. Extraocular movements are intact. Lungs: Lungs clear to auscultation. No wheezing, rhonchi, rales Heart: RRR without murmur, gallop, or rubs. Extremities: No deformities, edema, skin discoloration, clubbing or cyanosis. Good capillary refill. ASSESSMENT/PLAN: 1. Syncope, unspecified syncope type - ICD9: 780.2, ICD10: R55 (primary diagnosis) Likely from not drinking enough water Asked the patient to drink 2 litres of water. 2. Ulcerative pancolitis without complication (HCC) - ICD9: 556.6, ICD10: K51.00 Cont current medication 3. Moderate episode of recurrent major depressive disorder (HCC) - ICD9: 296.32, ICD10: F33.1 Restart zoloft as it was working We will see if hydration was the reason for the dizzy spell Britney Kay MD documented in this encounter [facility] 12-21-2021 History of Presen t illness Narrative Reason for Visit Patient presents with: Depression Immunizations: Flu vaccination Radha Barnes is a 21 year old female who presents here today for Above Complaints.. Health Maintenance HEPATITIS A(1 of 2 - Risk 2-dose series) PNEUMOCOCCAL(1 - PCV) MENINGOCOCCAL B: Consider based on risk(1 of 4 - Increased Risk Bexsero 2-dose series) GC (GONORRHEA) SCREENING (18-24) CHLAMYDIA SCREENING (18-24) SHINGRIX VACCINE(1 of 2) DEPRESSION ASSESSMENT INFLUENZA(1) HPI Pancolitis: dx with ulcerative colitis, presented with blood in the stool. She denies having abdominal pain when she was diagnosed. She had to go to the rest room a lot for diarrhea, some times with blood. On humira for the past 3 months, her diarrhea is resolved and no blood in the stools She is on prednisone right now. She just got out of a flare. 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 She does not feel herself Ph9. 3, 3, 3, 3, 0,3,3,0,0- she is moderates severe depressed. She is finding it extremely difficult to do her work due to all these issues. She has had depression in the past, around 2019, it was more anxiety now she is more depressed. In the past she was on sertraline. She is willing to go back on it. No problem-specific Assessment & Plan notes found for this encounter. PAST MEDICAL HISTORY Diagnosis Date Anxiety and depression Childhood overweight, BMI 85-94.9 percentile 08/2015 Iron deficiency anemia Iron deficiency anemia due to chronic blood loss 02/09/2021 Menarche 01/2013 PMH - PAST MEDICAL HISTORY OF 10/15/2006 normal color vision Ulcerative colitis (HCC) PAST SURGICAL HISTORY Procedure Laterality Date CAPSULE ENDOSCOPY SMALL BOWEL 01/25/2021 COLONOSCOPY GEN ANES 12/08/2020 EGD 12/08/2020 UNLISTED DIAGNOSTIC GASTROENTEROLOGY PROCEDURE 01/25/2021 FAMILY HISTORY Problem Relation Age of Onset Hypertension Mother other (gluten intolerance) Mother Hypertension Father Heart Sister murmur as an Diabetes Maternal Grandmother Hypertension Maternal Grandfather Heart Maternal Grandfather 60s other (Bladder cancer) Maternal Grandfather No Known Problems Paternal Grandmother Hypertension Paternal Grandfather Heart Paternal Grandfather age 52 [place]; adn MGGF Social History Tobacco Use Smoking status: Never Smokeless tobacco: Never Vaping Use Vaping Use: Never used Substance Use Topics Alcohol use: Yes Comment: occasional Drug use: No Past medical history, appointments, medications, allergies reviewed. Pertinent Lab/Diagnostic Studies are reviewed and discussed today Current Outpatient Medications: predniSONE (DELTASONE) 10 mg tablet ferrous sulfate 325 mg (65 mg iron) tablet adalimumab 40 mg/0.4 mL subcutaneous pen kit (HUMIRA (CF)) ergocalciferol 50,000 unit capsule (VITAMIN D2, DRISDOL) Review of Systems CONSTITUTIONAL: No fevers, chills night sweats, unintended weight loss CARDIOVASCULAR: No chest pain, dyspnea, palpitations, orthopnea, PND, ankle edema. PULM: No dyspnea, unexplained cough. GI: No dysphagia/odynophagia, problematic reflux, constipation, diarrhea, changes in stool habits, hematochezia, melena. : No new urinary complaints, including dysuria, gross hematuria or pyuria. NEURO: No new balance problems, peripheral weakness/paresthesias or numbness of concern. Physical Exam BP 124/80 Pulse 86 Resp 16 Wt 65.8 kg (145 lb) LMP 05/08/2021 (Exact Date) SpO2 96% BMI 26.74 kg/m General appearance: Well appearing, alert, in no acute distress, well nourished. Skin: Skin color, texture, turgor normal, no suspicious rashes or lesions Head: Normocephalic, no masses, lesions, tenderness or abnormalities Eyes: Anicteric sclera. Pupils are equally round and reactive to light. Extraocular movements are intact. Lungs: Lungs clear to auscultation. No wheezing, rhonchi, rales Heart: RRR without murmur, gallop, or rubs. Extremities: No deformities, edema, skin discoloration, clubbing or cyanosis. Good capillary re ASSESSMENT/PLAN: 1. Moderate episode of recurrent major depressive disorder (HCC) - ICD9: 296.32, ICD10: F33.1 (primary diagnosis) Discussed SSRI's in detail, their side effects including weight gain in some, sexual side effects, that it needs to build up in their system and usually in the 3rd week they will start feeling the effects. Also discussed that each SSRI may affect differently , might have to try a couple before finding out a perfect fit. Patient involved in shared decision making for management of her medical issues. History and medications reviewed. Epic updated as needed Refills taken care of and meds adjusted as indicated after reviewed history, exam and labs. Health Maintenance reviewed. Updated record and/or ordered tests as recorded. 2. Need for influenza vaccination - ICD9: V04.81, ICD10: Z23 - INFLUENZA VACCINE QUADRIVALENT 6 MO - 64 YRS IM Britney Kay MD documented in this encounter [facility] 12-18-2021 Miscellaneous Notes Addended by: GIANA SALEH on: 12/18/2021 08:09 AM Modules accepted: Orders documented in this encounter [facility] 12-16-2021 History of Presen t illness Narrative 21 year old female with PMH ulcerative colitis and anemia presents for abdominal pain and SOB She is tearful +pain to lower abdomen She is tachycardic Concerns for intracranial process Unable to obtain labs at time of presentation. Sent to ED for further management and evaluation. BP 122/72 Pulse (!) 124 Temp 36.8 C (98.2 F) Resp 18 Wt 65.3 kg (144 lb) LMP 05/08/2021 (Exact Date) SpO2 99% BMI 26.55 kg/m documented in this encounter [facility] 12-14-2021 Miscellaneous Notes Patient MyChart message requesting the following refill Refill(s) Requested: Requested Prescriptions Pending Prescriptions Disp Refills ferrous sulfate 325 mg (65 mg iron) tablet 30 tablet 5 Sig: Take 1 tablet by mouth daily with breakfast. ALLERGIES No Known Allergies (home) [phone] (cell) Last Office Visit Date: 11/02/2021 Last [facility] Visit: Visit date not found Future Appointment: 02/28/2022 The patients preferred pharmacy has been captured for this encounter? yes Request is for script(s) to be escript to pharmacy. Kylee Coyle LPN documented in this encounter [facility] 11-30-2021 Instructions Giana Saleh PA-C - 11/30/2021 8:55 AM EDT Plan to recheck calprotectin stool study/vitamin D lab around late December, early January 2022 documented in this encounter [facility] 11-30-2021 History of Presen t illness Narrative CHIEF COMPLAINT: Patient presents with: Recheck: No concerns HPI Radha Barnes is a 21 year old female here today for Recheck (No concerns). Dx with ulcerative pancolitis 12/08/2020. Was having minimal improvement in inflammatory levels with mesalamine, so advised switch to Humira. Started injections 10/12/2021. Following with Dr. Rico for MORGAN. States she was a little constipated after finishing prednisone taper. Starting to notice significant improvement with the Humira. Bms are currently 1-2 per day, more mushy/formed consistency, no blood. OV 09/26/2021 Radha Barnes is a 21 year old female here today for Ulcerative Pancolitis (Abd pain, rectal bleeding ). Dx with ulcerative pancolitis 12/08/2020. Started on daily mesalamine with improvement in symptoms. Labs demonstrated severe anemia so advised getting established with Heme-Onc as she was not responding to oral Fe TID. Recently started on IV Fe with Dr. Rico. Capsule endoscopy 01/25/2021 demonstrated no GI sources of anemia. MORGAN suspected to be related to malabsorption from underlying UC. Admits to chronic persistent diarrhea, intermittent rectal bleeding, 2-3x per week. Current Outpatient Medications Medication Sig adalimumab 40 mg/0.4 mL subcutaneous pen kit (HUMIRA (CF)) Inject 40 mg subcutaneously every 2 weeks. ergocalciferol 50,000 unit capsule (VITAMIN D2, DRISDOL) Take 1 capsule by mouth one time a week. ferrous sulfate 325 mg (65 mg iron) tablet Take 1 tablet by mouth daily with breakfast. No current facility-administered medications for this visit. ALLERGIES No Known Allergies Social History Tobacco Use Smoking status: Never Smokeless tobacco: Never Vaping Use Vaping Use: Never used Substance Use Topics Alcohol use: Yes Comment: occasional Drug use: No PAST MEDICAL HISTORY Diagnosis Date Anxiety and depression Childhood overweight, BMI 85-94.9 percentile 08/2015 Iron deficiency anemia Iron deficiency anemia due to chronic blood loss 02/09/2021 Menarche 01/2013 PMH - PAST MEDICAL HISTORY OF 10/15/2006 normal color vision Ulcerative colitis (HCC) PAST SURGICAL HISTORY Procedure Laterality Date CAPSULE ENDOSCOPY SMALL BOWEL 01/25/2021 COLONOSCOPY GEN ANES 12/08/2020 EGD 12/08/2020 UNLISTED DIAGNOSTIC GASTROENTEROLOGY PROCEDURE 01/25/2021 FAMILY HISTORY Problem Relation Age of Onset Hypertension Mother other (gluten intolerance) Mother Hypertension Father Heart Sister murmur as an Diabetes Maternal Grandmother Hypertension Maternal Grandfather Heart Maternal Grandfather 60s other (Bladder cancer) Maternal Grandfather No Known Problems Paternal Grandmother Hypertension Paternal Grandfather Heart Paternal Grandfather age 52 [place]; adn MGGF REVIEW OF SYSTEMS Review of Systems Gastrointestinal: Positive for constipation. Gas All other systems reviewed and are negative. PHYSICAL EXAM BP 102/72 Pulse 66 Ht 156.8 cm (5' 1.75 ) Wt 66.7 kg (147 lb) LMP 05/08/2021 (Exact Date) BMI 27.10 kg/m Physical Exam Constitutional: General: She is not in acute distress. Appearance: Normal appearance. She is normal weight. She is not ill-appearing, toxic-appearing or diaphoretic. HENT: Head: Normocephalic and atraumatic. Nose: Nose normal. Eyes: General: No scleral icterus. Right eye: No discharge. Left eye: No discharge. Extraocular Movements: Extraocular movements intact. Conjunctiva/sclera: Conjunctivae normal. Pupils: Pupils are equal, round, and reactive to light. Cardiovascular: Rate and Rhythm: Normal rate and regular rhythm. Pulses: Normal pulses. Heart sounds: Normal heart sounds. No murmur heard. No friction rub. No gallop. Pulmonary: Effort: No respiratory distress. Breath sounds: Normal breath sounds. No stridor. No wheezing, rhonchi or rales. Chest: Chest wall: No tenderness. Abdominal: General: Abdomen is flat. Bowel sounds are normal. There is no distension. Palpations: Abdomen is soft. There is no mass. Tenderness: There is no abdominal tenderness. There is no right CVA tenderness, left CVA tenderness, guarding or rebound. Hernia: No hernia is present. Musculoskeletal: General: Normal range of motion. Cervical back: Normal range of motion and neck supple. Skin: General: Skin is warm and dry. Neurological: General: No focal deficit present. Mental Status: She is alert and oriented to person, place, and time. Psychiatric: Mood and Affect: Mood normal. Behavior: Behavior normal. Assessment/Plan (K51.00) Ulcerative pancolitis without complication (HCC) (primary encounter diagnosis) (E55.9) Vitamin D deficiency 1. Ulcerative pancolitis without complication (HCC) - CALPROTECTIN,FECAL - Starting to show good improvement since starting Humira injection 10/2021. Having more formation to stool, no further rectal bleeding. Continue biweekly. Advised to let me know if any future plans for or if she becomes . Informed that safety profile for Humira in is very good and to not stop medication even if occurs. - Recheck calprotectin around 12/2021-01/2022 - Recheck vitamin D levels - Heme-Onc following malabsorption anemia - Have discussed yearly eye/skin check importance with pt in the past 2. Vitamin D deficiency - VITAMIN D 25 HYDROXY; Future Follow up in office 6 months/PRN. I spent a total of <10 minutes on the date of the service which included preparing to see the patient, [id number] patient care, completing clinical documentation, obtaining and/or reviewing separately obtained history, performing a medically appropriate examination, counseling and educating the patient/family/caregiver, ordering medications, tests, or procedures, communicating with other HCPs (not separately reported), independently interpreting results (not separately reported), communicating results to the patient/family/caregiver, and care coordination (not separately reported). Giana Saleh PA-C November 30, 2021 8:53 AM documented in this encounter [facility] 10-01-2021 Miscellaneous Notes CaseId:[id number];Status:Approved; Review Type:Prior Auth;Coverage Start Date:09/01/2021;Coverage End Date:03/30/2022 Left voicemail for patient to sign up for Humira complete, please call me back when receives the medication. Pending Prescriptions Disp Refills ADALIMUMAB 80 MG/0.8 ML SUBCUTANEOUS PEN KIT 1 Kit 0 Sig: Inject 160 mg subcutaneously on day 1, then inject 80 mg subcutaneously 2 weeks later. ADALIMUMAB 40 MG/0.4 ML SUBCUTANEOUS PEN KIT 1 Kit 11 Sig: Inject 40 mg subcutaneously every 2 weeks. Mary Pozo CMA documented in this encounter [facility] 09-26-2021 History of Presen t illness Narrative CHIEF COMPLAINT: Patient presents with: Ulcerative Pancolitis: Abd pain, rectal bleeding HPI Radha Barnes is a 21 year old female here today for Ulcerative Pancolitis (Abd pain, rectal bleeding ). Dx with ulcerative pancolitis 12/08/2020. Started on daily mesalamine with improvement in symptoms. Labs demonstrated severe anemia so advised getting established with Heme-Onc as she was not responding to oral Fe TID. Recently started on IV Fe with Dr. Rico. Capsule endoscopy 01/25/2021 demonstrated no GI sources of anemia. MORGAN suspected to be related to malabsorption from underlying UC. Admits to chronic persistent diarrhea, intermittent rectal bleeding, 2-3x per week. OV 02/2021 Radha Barnes is a 20 year old female here today for Follow Up (anemia, review capsule, stool testing). Dx with ulcerative pancolitis 12/08/2020. Started on daily mesalamine with improvement in symptoms. Labs demonstrated severe anemia so advised getting established with Heme-Onc as she was not responding to oral Fe TID. Recently started on IV Fe with Dr. Rico. Capsule endoscopy 01/25/2021 demonstrated no GI sources of anemia. MORGAN suspected to be related to malabsorption from underlying UC. Doing well with Lialda, now taking Lialda BID with good control. BMs are currently 2-3 per day, normal consistency, some small episodes of BRBPR 1-2x per month. Has not needed to take Levsin. Started on weekly vitamin D last OV which she has been taking. Scheduled to receive Hep A/B vaccines. Current Outpatient Medications Medication Sig Mesalamine (LIALDA) 1.2 gram EC tablet Take 4 tablets by mouth once daily. Take with food. Do not cut tablet. ferrous sulfate 325 mg (65 mg iron) tablet Take 1 tablet by mouth daily with breakfast. ergocalciferol 50,000 unit capsule (VITAMIN D2, DRISDOL) Take 1 capsule by mouth one time a week. No current facility-administered medications for this visit. ALLERGIES No Known Allergies Social History Tobacco Use Smoking status: Never Smoker Smokeless tobacco: Never Used Vaping Use Vaping Use: Never used Substance Use Topics Alcohol use: Yes Comment: occasional Drug use: No PAST MEDICAL HISTORY Diagnosis Date Anxiety and depression Childhood overweight, BMI 85-94.9 percentile 08/2015 Iron deficiency anemia Iron deficiency anemia due to chronic blood loss 02/09/2021 Menarche 01/2013 PMH - PAST MEDICAL HISTORY OF 10/15/2006 normal color vision Ulcerative colitis (HCC) PAST SURGICAL HISTORY Procedure Laterality Date CAPSULE ENDOSCOPY SMALL BOWEL 01/25/2021 COLONOSCOPY GEN ANES 12/08/2020 EGD 12/08/2020 UNLISTED DIAGNOSTIC GASTROENTEROLOGY PROCEDURE 01/25/2021 FAMILY HISTORY Problem Relation Age of Onset Hypertension Mother other (gluten intolerance) Mother Hypertension Father Heart Sister murmur as an Diabetes Maternal Grandmother Hypertension Maternal Grandfather Heart Maternal Grandfather 60s other (Bladder cancer) Maternal Grandfather No Known Problems Paternal Grandmother Hypertension Paternal Grandfather Heart Paternal Grandfather age 52 [place]; adn MGGF REVIEW OF SYSTEMS Review of Systems Gastrointestinal: Positive for abdominal pain and diarrhea. Gas All other systems reviewed and are negative. PHYSICAL EXAM BP 112/74 Pulse 79 Ht 5' 1.75 (1.57m) Wt 136 lb 12.8 oz (62.1kg) LMP 05/08/2021 BMI 25.24 kg/(m^2). Physical Exam Constitutional: General: She is not in acute distress. Appearance: Normal appearance. She is normal weight. She is not ill-appearing, toxic-appearing or diaphoretic. HENT: Head: Normocephalic and atraumatic. Nose: Nose normal. Eyes: General: No scleral icterus. Right eye: No discharge. Left eye: No discharge. Extraocular Movements: Extraocular movements intact. Conjunctiva/sclera: Conjunctivae normal. Pupils: Pupils are equal, round, and reactive to light. Cardiovascular: Rate and Rhythm: Normal rate and regular rhythm. Pulses: Normal pulses. Heart sounds: Normal heart sounds. No murmur heard. No friction rub. No gallop. Pulmonary: Effort: No respiratory distress. Breath sounds: Normal breath sounds. No stridor. No wheezing, rhonchi or rales. Chest: Chest wall: No tenderness. Abdominal: General: Abdomen is flat. Bowel sounds are normal. There is no distension. Palpations: Abdomen is soft. There is no mass. Tenderness: There is no abdominal tenderness. There is no right CVA tenderness, left CVA tenderness, guarding or rebound. Hernia: No hernia is present. Musculoskeletal: General: Normal range of motion. Cervical back: Normal range of motion and neck supple. Skin: General: Skin is warm and dry. Neurological: General: No focal deficit present. Mental Status: She is alert and oriented to person, place, and time. Psychiatric: Mood and Affect: Mood normal. Behavior: Behavior normal. Assessment/Plan (K51.011) Ulcerative pancolitis with rectal bleeding (HCC) (primary encounter diagnosis) (R19.5) Elevated fecal calprotectin (D50.8) Other iron deficiency anemia (Z11.59) Encounter for screening for other viral diseases 1. Ulcerative pancolitis with rectal bleeding (HCC) - CBC + DIFF; Future - COMP METABOLIC PANEL; Future - CALPROTECTIN,FECAL - VITAMIN D 25 HYDROXY; Future - C. DIFFICILE PCR - predniSONE (DELTASONE) 10 mg tablet; Take 4 tablets by mouth once daily for 7 days, THEN 3 tablets once daily for 7 days, THEN 2 tablets once daily for 7 days, THEN 1 tablet once daily for 7 days. Dispense: 70 tablet; Refill: 0 - Due to chronic uncontrolled UC w/ Lialda discussed starting Humira which pt is very agreeable to as she would like to get off of oral pills. Discussed increased risk of malignancy/lymphomas/infections with Humira which she verbalized understanding of. Hep B negative 01/2021, will update TB screening - Start course of prednisone after stool studies. Pt denied chance of - Obtain updated labs, recheck vitamin D levels, h/o severe vitamin D deficiency - Vaccinated for Hep B, needs hep A vaccination, advised f/u with PCP to ensure she is up to date on all other health maintenance vaccination prior to starting biologic therapy 2. Elevated fecal calprotectin 3. Other iron deficiency anemia - Heme-Onc Dr. Rico following for malabsorption related anemia 4. Encounter for screening for other viral diseases - BLOOD TB SCREEN, INCUBATED; Future Follow up in office 6 months/PRN. Recommended to please call office/go to ER if fever, chills, chest pain, SOB, diarrhea, nausea, emesis, worsening abdominal pain, dehydration occurs I spent a total of 15 minutes on the date of the service which included preparing to see the patient, [id number] patient care, completing clinical documentation, obtaining and/or reviewing separately obtained history, performing a medically appropriate examination, counseling and educating the patient/family/caregiver, ordering medications, tests, or procedures, communicating with other HCPs (not separately reported), independently interpreting results (not separately reported), communicating results to the patient/family/caregiver, and care coordination (not separately reported). Giana Saleh PA-C September 26, 2021 9:56 AM documented in this encounter [facility] 09-11-2021 Miscellaneous Notes Copied for scanned documents. The original will be available in medical records today after 3 pm. Pt notified. Form completed. Dr. Ford seen pt 05/11/21. Form to him to review. There is another form in scanned documents that was completed at that appt. Patient calls to check on status of physical form for job dropped off last week. Patient asking for call back to verify office received form. Patient reports when form is ready she will pick it up in medical records. Please review and advise, Sol Rocha RN documented in this encounter [facility] 08-22-2021 Miscellaneous Notes Patient phones requesting refills as follows: Pending Prescriptions Disp Refills MESALAMINE 1.2 GRAM TABLET,DELAYED RELEASE 120 tablet 3 Sig: Take 4 tablets by mouth once daily. Take with food. Do not cut tablet. SHIV: No Please review and advise. Marlon Mulligan MA documented in this encounter [facility] 08-02-2021 Miscellaneous Notes Calprotectin cancelled in system, will place new order. Giana Saleh PA-C documented in this encounter [facility] 06-22-2021 History of Presen t illness Narrative Radha Barnes 2000 June 22, 2021 HPI: Radha Barnes is a 21 year old female who is referred by Giana Saleh PA-C for evaluation of anemia. She has had bloody bowel movement and lower abdominal pain since 03/2020. Colonoscopy 12/08/2020 demonstrated active pancolitis. Unremarkable EGD. She was started on Mesalamine for ulcerative colitis. On ferrous sulfate 325 mg TID since 10/2020. Lab work on 01/19/21 showed hemoglobin 8.7, MCV 77.2, platelets 574, normal WBC, ferritin 16, transferrin saturation 4%. Received IV Monoferric 02/23/2021. No acute complications. Feels tired after taking Benadryl. She presents today for follow-up of iron deficiency anemia. She feels much better after receiving IV iron. 06/21/21: Hgb 8.7 --> 12.2, PLT 574KK --> 417K, ferritin 61.2, normal iron+TIBC. She does not take oral iron supplement. Loose BMs ~ 3 per day, no visible blood. No menorrhagia. No unintentional weight loss, headache, chest pain, shortness of breath, nausea, vomiting, abdominal pain. PAST MEDICAL HISTORY Diagnosis Date Anxiety and depression Childhood overweight, BMI 85-94.9 percentile 08/2015 Iron deficiency anemia Iron deficiency anemia due to chronic blood loss 02/09/2021 Menarche 01/2013 PMH - PAST MEDICAL HISTORY OF 10/15/2006 normal color vision Ulcerative colitis (HCC) PAST SURGICAL HISTORY Procedure Laterality Date CAPSULE ENDOSCOPY SMALL BOWEL 01/25/2021 COLONOSCOPY GEN ANES 12/08/2020 EGD 12/08/2020 UNLISTED DIAGNOSTIC GASTROENTEROLOGY PROCEDURE 01/25/2021 Current Outpatient Medications Medication Sig Dispense Refill Mesalamine (LIALDA) 1.2 gram EC tablet TAKE 4 TABLETS BY MOUTH ONCE DAILY. TAKE WITH FOOD. DO NOT CUT TABLET. 120 tablet 3 ergocalciferol 50,000 unit capsule (VITAMIN D2, DRISDOL) TAKE 1 CAPSULE BY MOUTH ONE TIME A WEEK FOR 8 DOSES. 4 capsule 1 cholecalciferol, Vitamin D3, (VITAMIN D3) 1,250 mcg (50,000 unit) cap capsule Take 1 capsule by mouth two times a week for 30 days, THEN 1 capsule one time a week. (ONE CAPSULE) FOR VITAMIN D DEFICIENCY. 59 capsule 0 No current facility-administered medications for this visit. ALLERGIES No Known Allergies FAMILY HISTORY Problem Relation Age of Onset Hypertension Mother other (gluten intolerance) Mother Hypertension Father Heart Sister murmur as an infant Diabetes Maternal Grandmother Hypertension Maternal Grandfather Heart Maternal Grandfather 60s other (Bladder cancer) Maternal Grandfather No Known Problems Paternal Grandmother Hypertension Paternal Grandfather Heart Paternal Grandfather age 52 [place]; adn MGGF Social History Tobacco Use Smoking status: Never Smoker Smokeless tobacco: Never Used Substance Use Topics Alcohol use: Yes Comment: occasional Drug use: No I have confirmed and edited as necessary, the PFSH and ROS obtained by others on 06/22/2021. Review of Systems: All systems reviewed on 06/22/2021 with pertinent positives and negatives as outlined in HPI or interval history. 06/22/21 1404 BP: 114/74 Pulse: 70 Temp: 36.2 C (97.2 F) TempSrc: Tympanic SpO2: 99% Weight: 62.4 kg (137 lb 9.6 oz) Height: 156.8 cm (5' 1.75 ) Body mass index is 25.37 kg/m . Physical Exam: ECOG PS: 0 Pain Intensity: 0 General: Age-appropriate well developed. NAD. HEENT: Normocephalic, no sclera icterus. Neck: Supple. Chest: Clear bilaterally, not labored. Heart: Normal S1 and S2, RRR Abdomen: Soft, nontender, nondistended, bowel sounds present. Extremities: No edema. Neurological: Grossly intact. Skin: No rashes or jaundice. Psychiatric: Alert and oriented. Appropriate mood and affect. Labs CBC:Recent Labs 06/21/21 1348 WBC 7.47 HB 12.2 HCT 38.3 PLT 417* MCV 90.3 RDWCV 13.3 NEUTP 60.3 ABSNEUT 4.51 LYMPHP 27.6 MONOP 8.2 Assessment/Plan: 1. Iron deficiency anemia. - Likely secondary to bleeding and malabsorption from ulcerative pancolitis. - Was on ferrous sulfate 325 mg TID, still has severe MORGAN. - Received IV Monoferric 1000 mg on 02/23/21, responded well. Lab work on 06/21/21: Hgb 8.7 --> 12.2, PLT 574KK --> 417K, ferritin 61.2, normal iron+TIBC. - Recommend to restart ferrous sulfate 325 mg daily. 2. Thrombocytosis. - Likely secondary to iron deficiency anemia and/or UC. - Improved. 3. Ulcerative pancolitis with rectal bleeding. - s/p EGD and colonoscopy 12/2020, capsule endoscopy 01/2021. - Symptom improved on Mesalamine. - Follows with Dr. Adams and Giana Saleh PA-C. Follow up in 4 months. Check CBC, ferritin and iron+TIBC prior to visit. Call for questions or concerns. Ana iRco MD Portions of this note including ROS, impression/plan, and examination may have been copied forward as to provide important historical information essential in contributing to medical decision making. Documentation has been reviewed and edited as necessary to support clinical decision making for today's visit 06/24/2021. Medical Decision Making: Problems: Moderate: 2+ stable chronic illnesses Data: Unique test result(s) reviewed: 3+ Unique test(s) ordered: 3+ Risk: Moderate: Drug management Medical Decision Making Level: 4 - Moderate documented in this encounter [facility] 06-20-2021 Miscellaneous Notes Spoke with patient to ask about February 16 order for lab and stool test. Patient has a follow-up tomorrow and states she forgot about tests. She confirmed cancelling this appointment. She still has the stool order; will get testing done and call back to reschedule. Ellyn Mcmillan documented in this encounter [facility] documented as of this encounter (statuses as of 06/20/2021) [address]2016 History of Past illness Narrative* Problem Noted Date Resolved Date Childhood overweight, BMI 85-94.9 percentile 05/11/2021 documented as of this encounter (statuses as of 06/25/2021) [address]2016 History of Past illness Narrative* Problem Noted Date Resolved Date Childhood overweight, BMI 85-94.9 percentile 05/11/2021 documented as of this encounter (statuses as of 06/26/2021) [address]2016 History of Past illness Narrative* Problem Noted Date Resolved Date Childhood overweight, BMI 85-94.9 percentile 05/11/2021 documented as of this encounter (statuses as of 08/02/2021) [address]2016 History of Past illness Narrative* Problem Noted Date Resolved Date Childhood overweight, BMI 85-94.9 percentile 05/11/2021 documented as of this encounter (statuses as of 08/03/2021) [address] History of Past illness Narrative* Problem Noted Date Resolved Date Childhood overweight, BMI 85-94.9 percentile 05/11/2021 documented as of this encounter (statuses as of 08/22/2021) [address]2016 History of Past illness Narrative* Problem Noted Date Resolved Date Childhood overweight, BMI 85-94.9 percentile 05/11/2021 documented as of this encounter (statuses as of 09/11/2021) [address]2016 History of Past illness Narrative* Problem Noted Date Resolved Date Childhood overweight, BMI 85-94.9 percentile 05/11/2021 documented as of this encounter (statuses as of 09/26/2021) [address] History of Past illness Narrative* Problem Noted Date Resolved Date Childhood overweight, BMI 85-94.9 percentile 05/11/2021 documented as of this encounter (statuses as of 09/27/2021) [address]2016 History of Past illness Narrative* Problem Noted Date Resolved Date Childhood overweight, BMI 85-94.9 percentile 05/11/2021 documented as of this encounter (statuses as of 10/01/2021) [address]2016 History of Past illness Narrative* Problem Noted Date Resolved Date Childhood overweight, BMI 85-94.9 percentile 05/11/2021 documented as of this encounter (statuses as of 11/30/2021) [address]2016 History of Past illness Narrative* Problem Noted Date Resolved Date Childhood overweight, BMI 85-94.9 percentile 05/11/2021 documented as of this encounter (statuses as of 12/13/2021) [address]2016 History of Past illness Narrative* Problem Noted Date Resolved Date Childhood overweight, BMI 85-94.9 percentile 05/11/2021 documented as of this encounter (statuses as of 12/14/2021) [address] History of Past illness Narrative* Problem Noted Date Resolved Date Childhood overweight, BMI 85-94.9 percentile 05/11/2021 documented as of this encounter (statuses as of 12/16/2021) [address]2016 History of Past illness Narrative* Problem Noted Date Resolved Date Childhood overweight, BMI 85-94.9 percentile 05/11/2021 documented as of this encounter (statuses as of 12/18/2021) [address]2016 History of Past illness Narrative* Problem Noted Date Resolved Date Childhood overweight, BMI 85-94.9 percentile 05/11/2021 documented as of this encounter (statuses as of 12/21/2021) [address]2016 History of Past illness Narrative* Problem Noted Date Resolved Date Childhood overweight, BMI 85-94.9 percentile 05/11/2021 documented as of this encounter (statuses as of 01/02/2022) [address]2016 History of Past illness Narrative* Problem Noted Date Resolved Date Childhood overweight, BMI 85-94.9 percentile 05/11/2021 documented as of this encounter (statuses as of 03/01/2022) [address]2016 History of Past illness Narrative* Problem Noted Date Resolved Date Childhood overweight, BMI 85-94.9 percentile 05/11/2021 documented as of this encounter (statuses as of 03/16/2022) [address]2016 History of Past illness Narrative* Problem Noted Date Resolved Date Childhood overweight, BMI 85-94.9 percentile 05/11/2021 documented as of this encounter (statuses as of 03/20/2022) [address]2016 History of Past illness Narrative* Problem Noted Date Resolved Date Childhood overweight, BMI 85-94.9 percentile 05/11/2021 documented as of this encounter (statuses as of 04/05/2022) [address]2016 History of Past illness Narrative* Problem Noted Date Resolved Date Childhood overweight, BMI 85-94.9 percentile 05/11/2021 documented as of this encounter (statuses as of 05/01/2022) [address]2016 History of Past illness Narrative* Problem Noted Date Resolved Date Childhood overweight, BMI 85-94.9 percentile 05/11/2021 documented as of this encounter (statuses as of 05/30/2022) [address]2016 History of Past illness Narrative* Problem Noted Date Resolved Date Childhood overweight, BMI 85-94.9 percentile 05/11/2021 documented as of this encounter (statuses as of 06/10/2022) [address]2016 History of Past illness Narrative* Problem Noted Date Resolved Date Childhood overweight, BMI 85-94.9 percentile 05/11/2021 documented as of this encounter (statuses as of 06/21/2022) [address]2016 History of Past illness Narrative* Problem Noted Date Resolved Date Childhood overweight, BMI 85-94.9 percentile 05/11/2021 documented as of this encounter (statuses as of 06/28/2022) [address]2016 History of Past illness Narrative* Problem Noted Date Resolved Date Childhood overweight, BMI 85-94.9 percentile 05/11/2021 documented as of this encounter (statuses as of 08/07/2022) [address]2016 History of Past illness Narrative* Problem Noted Date Resolved Date Childhood overweight, BMI 85-94.9 percentile 05/11/2021 documented as of this encounter (statuses as of 08/07/2022) [address]2016 History of Past illness Narrative* Problem Noted Date Resolved Date Childhood overweight, BMI 85-94.9 percentile 05/11/2021 documented as of this encounter (statuses as of 08/08/2022) [address]2016 History of Past illness Narrative* Problem Noted Date Resolved Date Childhood overweight, BMI 85-94.9 percentile 05/11/2021 documented as of this encounter (statuses as of 08/12/2022) [address]2016 History of Past illness Narrative* Problem Noted Date Resolved Date Childhood overweight, BMI 85-94.9 percentile 05/11/2021 documented as of this encounter (statuses as of 08/27/2022) [address]2016 History of Past illness Narrative* Problem Noted Date Resolved Date Childhood overweight, BMI 85-94.9 percentile 05/11/2021 documented as of this encounter (statuses as of 08/29/2022) [facility]16[facility]2016 History of Past illness Narrative* Problem Noted Date Resolved Date Childhood overweight, BMI 85-94.9 percentile 05/11/2021 documented as of this encounter (statuses as of 09/03/2022) [address]2016 History of Past illness Narrative* Problem Noted Date Resolved Date Childhood overweight, BMI 85-94.9 percentile 05/11/2021 documented as of this encounter (statuses as of 09/03/2022) [address]2016 History of Past illness Narrative* Problem Noted Date Resolved Date Childhood overweight, BMI 85-94.9 percentile 05/11/2021 documented as of this encounter (statuses as of 09/05/2022) [address]2016 History of Past illness Narrative* Problem Noted Date Resolved Date Childhood overweight, BMI 85-94.9 percentile 05/11/2021 documented as of this encounter (statuses as of 09/06/2022) [address]2016 History of Past illness Narrative* Problem Noted Date Diagnosed Date Resolved Date Childhood overweight, BMI 85-94.9 percentile 6 05/11/2021 documented as of this encounter (statuses as of 09/20/2022) [address]2016 History of Past illness Narrative* Problem Noted Date Diagnosed Date Resolved Date Childhood overweight, BMI 85-94.9 percentile 6 05/11/2021 documented as of this encounter (statuses as of 09/25/2022) [address]2016 History of Past illness Narrative* Problem Noted Date Diagnosed Date Resolved Date Childhood overweight, BMI 85-94.9 percentile 6 05/11/2021 documented as of this encounter (statuses as of 10/02/2022) [address]2016 History of Past illness Narrative* Problem Noted Date Diagnosed Date Resolved Date Childhood overweight, BMI 85-94.9 percentile 6 05/11/2021 documented as of this encounter (statuses as of 10/11/2022) [address]2016 History of Past illness Narrative* Problem Noted Date Diagnosed Date Resolved Date Childhood overweight, BMI 85-94.9 percentile 6 05/11/2021 documented as of this encounter (statuses as of 10/14/2022) [address]2016 History of Past illness Narrative* Problem Noted Date Diagnosed Date Resolved Date Childhood overweight, BMI 85-94.9 percentile 6 05/11/2021 documented as of this encounter (statuses as of 10/23/2022) [address]2016 History of Past illness Narrative* Problem Noted Date Diagnosed Date Resolved Date Childhood overweight, BMI 85-94.9 percentile 6 05/11/2021 documented as of this encounter (statuses as of 10/31/2022) [address]2016 History of Past illness Narrative* Problem Noted Date Diagnosed Date Resolved Date Childhood overweight, BMI 85-94.9 percentile 6 05/11/2021 documented as of this encounter (statuses as of 11/06/2022) [address]2016 History of Past illness Narrative* Problem Noted Date Diagnosed Date Resolved Date Childhood overweight, BMI 85-94.9 percentile 6 05/11/2021 documented as of this encounter (statuses as of 12/03/2022) [facility] History of Past illness Narrative* Problem Noted Date Diagnosed Date Resolved Date Childhood overweight, BMI 85-94.9 percentile 6 05/11/2021 documented as of this encounter (statuses as of 12/07/2022) [facility] History of Past illness Narrative* Problem Noted Date Diagnosed Date Resolved Date Childhood overweight, BMI 85-94.9 percentile 6 05/11/2021 documented as of this encounter (statuses as of 12/13/2022) [facility] History of Past illness Narrative* Problem Noted Date Diagnosed Date Resolved Date Childhood overweight, BMI 85-94.9 percentile 6 05/11/2021 documented as of this encounter (statuses as of 12/13/2022) [facility] History of Past illness Narrative* Problem Noted Date Diagnosed Date Resolved Date Childhood overweight, BMI 85-94.9 percentile 6 05/11/2021 documented as of this encounter (statuses as of 12/17/2022) [facility] History of Past illness Narrative* Problem Noted Date Diagnosed Date Resolved Date Childhood overweight, BMI 85-94.9 percentile 6 05/11/2021 documented as of this encounter (statuses as of 12/27/2022) [facility] of Past illness Narrative* Problem Noted Date Diagnosed Date Resolved Date Childhood overweight, BMI 85-94.9 percentile 6 05/11/2021 documented as of this encounter (statuses as of 12/30/2022) [facility] History of Past illness Narrative* Problem Noted Date Diagnosed Date Resolved Date Childhood overweight, BMI 85-94.9 percentile 6 05/11/2021 documented as of this encounter (statuses as of 12/31/2022) [facility] History of Past illness Narrative* Problem Noted Date Diagnosed Date Resolved Date Childhood overweight, BMI 85-94.9 percentile 6 05/11/2021 documented as of this encounter (statuses as of 01/02/2023) [address]2016 History of Past illness Narrative* Problem Noted Date Diagnosed Date Resolved Date Childhood overweight, BMI 85-94.9 percentile 6 05/11/2021 documented as of this encounter (statuses as of 01/03/2023) [address]2016 History of Past illness Narrative* Problem Noted Date Diagnosed Date Resolved Date Childhood overweight, BMI 85-94.9 percentile 6 05/11/2021 documented as of this encounter (statuses as of 01/04/2023) [address]16-2016 History of Past illness Narrative* Problem Noted Date Diagnosed Date Resolved Date Childhood overweight, BMI 85-94.9 percentile 6 05/11/2021 documented as of this encounter (statuses as of 01/20/2023) [address]16-2016 History of Past illness Narrative* Problem Noted Date Diagnosed Date Resolved Date Childhood overweight, BMI 85-94.9 percentile 6 05/11/2021 documented as of this encounter (statuses as of 01/24/2023) [address]16-2016 History of Past illness Narrative* Problem Noted Date Diagnosed Date Resolved Date Childhood overweight, BMI 85-94.9 percentile 6 05/11/2021 documented as of this encounter (statuses as of 02/09/2023) [facility]06-16-2016 History of Past illness Narrative* Problem Noted Date Diagnosed Date Resolved Date Childhood overweight, BMI 85-94.9 percentile 6 05/11/2021 documented as of this encounter (statuses as of 02/21/2023) [address]16-2016 History of Past illness Narrative* Problem Noted Date Diagnosed Date Resolved Date Childhood overweight, BMI 85-94.9 percentile 6 05/11/2021 documented as of this encounter (statuses as of 02/21/2023) [facility] Diagnosis Iron deficiency anemia due to chronic blood loss- Primary Iron deficiency anemia secondary to blood loss (chronic) Ulcerative pancolitis with rectal bleeding (HCC) Thrombocytosis Essential thrombocythemia [facility] Diagnosis Vitamin D deficiency Unspecified vitamin D deficiency [facility] Diagnosis Ulcerative pancolitis without complication (HCC)- Primary [facility]* Diagnosis Ulcerative pancolitis with rectal bleeding (HCC)- Primary Elevated fecal calprotectin Other iron deficiency anemia Encounter for screening for other viral diseases documented in this encounter [facility] note* Diagnosis Vitamin D deficiency Unspecified vitamin D deficiency documented [facility] this [facility]* Diagnosis Ulcerative pancolitis with rectal bleeding (HCC)- Primary [facility] this [facility]* Diagnosis Ulcerative pancolitis without complication (HCC)- Primary Vitamin D deficiency Unspecified vitamin D deficiency documented [facility]* Diagnosis Vitamin D deficiency Unspecified vitamin D deficiency documented [facility] this encounter [facility]* Diagnosis Lower abdominal pain- Primary Abdominal pain, other specified site documented [facility] this encounter [facility]* Diagnosis Ulcerative pancolitis with rectal bleeding (HCC)- Primary documented in this encounter [facility] note* Diagnosis Moderate episode of recurrent major depressive disorder (HCC)- Primary Need for influenza vaccination Need for prophylactic vaccination and inoculation against influenza documented [facility] this [facility]* Diagnosis Syncope, unspecified syncope type- Primary Ulcerative pancolitis without complication (HCC) Moderate episode of recurrent major depressive disorder (HCC) documented [facility] this [facility]* Diagnosis Iron deficiency anemia due to chronic blood loss- Primary Iron deficiency anemia secondary to blood loss (chronic) Ulcerative pancolitis with rectal bleeding (HCC) Thrombocytosis Essential thrombocythemia documented in this encounter [facility] note* Diagnosis Ulcerative pancolitis with rectal bleeding (HCC)- Primary [facility] Diagnosis Sore throat- Primary Acute pharyngitis Viral URI Acute upper respiratory infections of unspecified site [facility] Diagnosis Ulcerative pancolitis with rectal bleeding (HCC)- Primary [facility] Diagnosis Ulcerative pancolitis with rectal bleeding (HCC)- Primary Encounter for screening for other viral diseases documented [facility] this [facility]* Diagnosis Encounter for gynecological examination (general) (routine) without abnormal findings- Primary Screening for cervical cancer Screening for malignant neoplasm of the cervix Screen for STD (sexually transmitted disease) Screening examination for venereal disease 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) [facility] Diagnosis Iron deficiency anemia due to chronic blood loss- Primary Iron deficiency anemia secondary to blood loss (chronic) Ulcerative pancolitis with rectal bleeding (HCC) [facility] Diagnosis Encounter for supervision of normal first in first trimester- Primary Supervision of normal first Other ulcerative colitis without complication (HCC) [facility] Diagnosis Ulcerative pancolitis with rectal bleeding (HCC)- Primary [facility] Diagnosis Vaginal discharge- Primary Leukorrhea, not specified as infective [facility] Diagnosis Encounter for supervision of normal first in first trimester- Primary Supervision of normal first 12 weeks gestation of state, incidental Ulcerative colitis with complication, unspecified location (HCC) [facility]* Diagnosis Encounter for (NT) nuchal translucency scan- Primary Other specified screening Encounter for supervision of normal first in first trimester Supervision of normal first 12 weeks gestation of state, incidental [facility] Diagnosis Iron deficiency anemia due to chronic blood loss- Primary Iron deficiency anemia secondary to blood loss (chronic) B12 deficiency Other B-complex deficiencies Anemia affecting , antepartum Ulcerative pancolitis with rectal bleeding (HCC) [facility] Diagnosis Ulcerative pancolitis with other complication (HCC)- Primary [facility] Diagnosis Ulcerative pancolitis without complication (HCC)- Primary [facility] Diagnosis Chest pain, unspecified type- Primary [facility] Diagnosis Tachycardia- Primary Tachycardia, unspecified Palpitations Chest pain, unspecified type Shortness of breath [facility] Diagnosis Encounter for follow-up ultrasound of anatomy- Primary Ulcerative colitis with other complication, unspecified location (HCC) [facility] Diagnosis Vaginal discomfort- Primary Unspecified symptom associated with female genital organs Vaginal itching Pruritus of genital organs [facility] Diagnosis 24 weeks gestation of - Primary state, incidental Encounter for supervision of normal first in second trimester Supervision of normal first Need for influenza vaccination Need for prophylactic vaccination and inoculation against influenza [facility]* Diagnosis Iron deficiency anemia due to chronic blood loss- Primary Iron deficiency anemia secondary to blood loss (chronic) Ulcerative colitis with rectal bleeding, unspecified location (HCC) documented in this encounter [facility] note* Diagnosis Iron deficiency anemia due to chronic blood loss- Primary Iron deficiency anemia secondary to blood loss (chronic) Ulcerative colitis with rectal bleeding, unspecified location (HCC) documented in this encounter [facility] note* Diagnosis Abnormal glucose complicating - Primary Abnormal maternal glucose tolerance, complicating , childbirth, or the puerperium, unspecified as to episode of care documented in this encounter [facility] note* Diagnosis Iron deficiency anemia due to chronic blood loss- Primary Iron deficiency anemia secondary to blood loss (chronic) Ulcerative colitis with rectal bleeding, unspecified location (HCC) documented in this encounter [facility] note* Diagnosis Encounter for supervision of normal first in third trimester- Primary Supervision of normal first 28 weeks gestation of state, incidental Need for vaccination Need for prophylactic vaccination and inoculation against unspecified single disease Rh negative status during in third trimester Bacterial vaginitis Vaginitis and vulvovaginitis, unspecified documented in this encounter [facility] note* Diagnosis Anemia during in third trimester- Primary 32 weeks gestation of state, incidental Vaginal discharge during in third trimester Ulcerative colitis with other complication, unspecified location (HCC) documented in this encounter [facility] note* Diagnosis Encounter for ultrasound to check growth- Primary Encounter for routine screening for malformation using ultrasonics Ulcerative colitis with complication, unspecified location (HCC) 32 weeks gestation of state, incidental documented in this encounter [facility] note* Diagnosis 34 weeks gestation of - Primary state, incidental Encounter for supervision of normal first in third trimester Supervision of normal first documented in this encounter [facility] note* Diagnosis 36 weeks gestation of - Primary state, incidental Encounter for supervision of normal first in third trimester Supervision of normal first Ulcerative colitis with other complication, unspecified location (HCC) [facility] Diagnosis Encounter for ultrasound to check growth- Primary Encounter for routine screening for malformation using ultrasonics Ulcerative colitis with complication, unspecified location (HCC) 36 weeks gestation of state, incidental documented in this encounter [facility] for referral (narrative)* Outpatient Procedure (Routine) - Authorized Specialty Diagnoses / Procedures Referred By Caroline garnica Referred To Contact [facility] Diagnoses Ulcerative pancolitis with rectal bleeding (HCC) Procedures COLONOSCOPY DIAGNOSTIC COLONOSCOPY FLX DX W/COLLJ SPEC WHEN PFRMD Giana Saleh PA-C [address] [place] [address] [facility]ly [facility] [address] [place] [address] Referral ID Status Reason Start Date Expiration Date Visits Requested Visits Authorized [id number] Authorized Auto-Generat ed Referral 06/10/2022 06/11/2023 1 1 [facility] for referral (narrative)* Diagnostic Procedure Only (Routine) - Authorized Specialty Diagnoses / Procedures Referred By Caroline t Referred To Contact [facility] Diagnoses Encounter for supervision of normal first in first trimester Procedures NUCHAL TRANSLUCENCY WHI US NUCHAL TRANSLUCENCY 1ST GESTATION Laureano Fajardo MD [address] [place] [address] [facility] [address] [place] [address] Referral ID Status Reason Start Date Expiration Date Visits Requested Visits Authorized [id number] Authorized Auto-Generat ed Referral 08/06/2022 08/06/2023 1 1 T [facility] for referral (narrative)* Diagnostic Procedure Only (Routine) - Authorized Specialty Diagnoses / Procedures Referred By Caroline garnica Referred To Contact [facility] Diagnoses Encounter for follow-up ultrasound of anatomy Procedures OBSTETRIC ULTRASOUND WHI US PREG UTERUS AFTER 1ST TRIMEST GESTATION Luareano Fajardo MD [address] [place] [address] [facility] [address] [place] [address] Referral ID Status Reason Start Date Expiration Date Visits Requested Visits Authorized [id number] Authorized Auto-Generat ed Referral 11/05/2022 11/05/2023 1 1 [facility] Summary Purpose Family History No Family History Records FoundNo Family History Records FoundNo Family History Records Found Advance Directives No Advanced Directives Records FoundDocuments on File Type Date 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 Advance Directive(s) Advance Directive(s) 12/08/2020 10:07 AM Health Concerns Problem Noted Date [facility] Education - [facility] 07/10 [place] - [place] 08/06/2022 Problem Noted Date [facility] Education - [facility] 07/10 Education - [place] 08/06/2022 Problem Noted Date [facility] Education - [facility] 07/10 [place] - [place] 08/06/2022 Problem Noted Date [facility] Education - [facility] 07/10 Education - [place] 08/06/2022 Problem Noted Date [facility] Education - [facility] 07/10 Education - [place] 08/06/2022 Problem Noted Date [facility] Education - [facility] 07/10 Education - [place] 08/06/2022 Problem Noted Date [facility] Education - [facility] 07/10 Education - [place] 08/06/2022 Problem Noted Date [facility] Education - [facility] 07/10 Education - [place] 08/06/2022 Problem Noted Date [facility] Education - [facility] 07/10 Education - [place] 08/06/2022 Problem Noted Date Diagnosed Date [facility] Education - [facility] 08/06/2022 Education - [place] 08/06/2022 Problem Noted Date Diagnosed Date [facility] Education - [facility] 08/06/2022 Education - [place] 08/06/2022 Problem Noted Date Diagnosed Date [facility] Education - [facility] 08/06/2022 Education - [place] 08/06/2022 Problem Noted Date Diagnosed Date [facility] Education - [facility] 08/06/2022 Education - [place] 08/06/2022 Problem Noted Date Diagnosed Date [facility] Education - [facility] 08/06/2022 Education - [place] 08/06/2022 Problem Noted Date Diagnosed Date [facility] Education - [facility] 08/06/2022 Education - [place] 08/06/2022 Problem Noted Date Diagnosed Date [facility] Education - [facility] 08/06/2022 Education - [place] 08/06/2022 Problem Noted Date Diagnosed Date [facility] Education - [facility] 08/06/2022 Education - [place] 08/06/2022 Problem Noted Date Diagnosed Date [facility] Education - [facility] 08/06/2022 [place] - [place] 08/06/2022 Problem Noted Date Diagnosed Date [facility] Education - [facility] 08/06/2022 Education - [place] 08/06/2022 Problem Noted Date Diagnosed Date [facility] Education - [facility] 08/06/2022 Education - [place] 08/06/2022 Problem Noted Date Diagnosed Date [facility] Education - [facility] 08/06/2022 Education - [place] 08/06/2022 Problem Noted Date Diagnosed Date [facility] Education - [facility] 08/06/2022 Education - [place] 08/06/2022 Problem Noted Date Diagnosed Date [facility] Education - [facility] 08/06/2022 Education - [place] 08/06/2022 Problem Noted Date Diagnosed Date [facility] Education - [facility] 08/06/2022 Education - [place] 08/06/2022 Problem Noted Date Diagnosed Date [facility] Education - [facility] 08/06/2022 [place] - [place] 08/06/2022 Reason for Referral Specialty Diagnoses / Procedures Referred By Caroline garnica Referred To Contact Diagnoses Encounter for supervision of normal first in first trimester 12 weeks gestation of Ulcerative colitis with complication, unspecified location (HCC) Procedures CONSULT TO MATERNAL MEDI OFFICE/OUTPATIENT [facility] 60-74 MINUTES Laureano Fajardo MD [address] [place] [address] Referral ID Status Reason Start Date Expiration Date Visits Requested Visits Authorized [id number] Authorized PCP Requested Referral Auto-Generate d Referral 09/03/2022 09/03/2023 1 1 Specialty Diagnoses / Procedures Referred By Caroline garnica Referred To Contact [facility] Diagnoses Ulcerative colitis with complication, unspecified location ([facility]) Procedures OBSTETRIC ULTRASOUND WHI US PREG UTERUS AFTER 1ST TRIMEST GESTATION Laureano Fajardo MD [address] [place] [address] [facility] [address] [place] [address] Referral ID Status Reason Start Date Expiration Date Visits Requested Visits Authorized [id number] Authorized Auto-Generat ed Referral 09/03/2022 09/03/2023 1 1 Medications Administered Section Inactive Administered Medications - up to 3 most recent administrations Medication Order MAR Action Action Date Dose Rate Site cyanocobalamin 1,000 mcg injection 1,000 mcg, INTRAMUSCULAR, ONCE, 1 dose, On Fri09/04/22 at 1100 Given 09/04/2022 11:00 AM EDT 1,000 mcg Deltoid, Left Inactive Administered Medications - up to 3 most recent administrations Medication Order MAR Action Action Date Dose Rate Site iron sucrose 300 mg in NaCl 0.9% 250 mL (VENOFER) 300 mg, INTRAVENOUS, at 166.67 mL/hr, Administer over 90 Minutes, ONCE, 1 dose, On Fri12/16/22 at 1430, Please conduct a 30 minute post dose observation. Approx total volume = 290 mL Refrigerate New Bag/Syringe/Bottle 12/16/2022 2:15 PM EDT 300 mg 166.67 mL/hr Inactive Administered Medications - up to 3 most recent administrations Medication Order MAR Action Action Date Dose Rate Site iron sucrose 300 mg in NaCl 0.9% 250 mL (VENOFER) 300 mg, INTRAVENOUS, at 166.67 mL/hr, Administer over 90 Minutes, ONCE, 1 dose, On Fri12/27/22 at 0830, Please conduct a 30 minute post dose observation. Refrigerate New Bag/Syringe/Bottle 12/27/2022 8:42 AM EDT 300 mg 166.67 mL/hr Inactive Administered Medications - up to 3 most recent administrations Medication Order MAR Action Action Date Dose Rate Site iron sucrose 300 mg in NaCl 0.9% 250 mL (VENOFER) 300 mg, INTRAVENOUS, at 166.67 mL/hr, Administer over 90 Minutes, ONCE, 1 dose, On Fri01/03/23 at 0830, Please conduct a 30 minute post dose observation. Refrigerate New Bag/Syringe/Bottle 01/03/2023 8:50 AM EDT 300 mg 166.67 mL/hr Additional Source Comments INFORMATION SOURCE (unrecogn ized section and content) DATE CREATED AUTHOR AUTHOR'S ORGANEJ ATION 01/05/2023 [facility] DATE CREATED AUTHOR AUTHOR'S ORGANIZ ATION 03/15/2023 [facility] Source Comments (unrecognize d section and content) In the event this informatio n is protected by the Federal Confidentiality of Alcohol and Drug Abuse Patient Records regulations: The Federal rules restrict any use of the information to criminally investigate or prosecute any alcohol or drug abuse patient.[facility] the event this information is protected by the Federal Confidentiality of Alcohol and Drug Abuse Patient Records regulations: The Federal rules restrict any use of the information to criminally investigate or prosecute any alcohol or drug abuse patient.[facility] the event this information is protected by the Federal Confidentiality of Alcohol and Drug Abuse Patient Records regulations: The Federal rules restrict any use of the information to criminally investigate or prosecute any alcohol or drug abuse patient.[facility] the event this information is protected by the Federal Confidentiality of Alcohol and Drug Abuse Patient Records regulations: The Federal rules restrict any use of the information to criminally investigate or prosecute any alcohol or drug abuse patient.[facility] the event this information is protected by the Federal Confidentiality of Alcohol and Drug Abuse Patient Records regulations: The Federal rules restrict any use of the information to criminally investigate or prosecute any alcohol or drug abuse patient.[facility] the event this information is protected by the Federal Confidentiality of Alcohol and Drug Abuse Patient Records regulations: The Federal rules restrict any use of the information to criminally investigate or prosecute any alcohol or drug abuse patient.[facility] Center[facility] the event this information is protected by the Federal Confidentiality of Alcohol and Drug Abuse Patient Records regulations: The Federal rules restrict any use of the information to criminally investigate or prosecute any alcohol or drug abuse patient.[facility] Center[facility] the event this information is protected by the Federal Confidentiality of Alcohol and Drug Abuse Patient Records regulations: The Federal rules restrict any use of the information to criminally investigate or prosecute any alcohol or drug abuse patient.[facility] Center[facility] the event this information is protected by the Federal Confidentiality of Alcohol and Drug Abuse Patient Records regulations: The Federal rules restrict any use of the information to criminally investigate or prosecute any alcohol or drug abuse patient.[facility] Center[facility] the event this information is protected by the Federal Confidentiality of Alcohol and Drug Abuse Patient Records regulations: The Federal rules restrict any use of the information to criminally investigate or prosecute any alcohol or drug abuse patient.[facility] Center[facility] the event this information is protected by the Federal Confidentiality of Alcohol and Drug Abuse Patient Records regulations: The Federal rules restrict any use of the information to criminally investigate or prosecute any alcohol or drug abuse patient.[facility] Center[facility] the event this information is protected by the Federal Confidentiality of Alcohol and Drug Abuse Patient Records regulations: The Federal rules restrict any use of the information to criminally investigate or prosecute any alcohol or drug abuse patient.[facility] Center[facility] the event this information is protected by the Federal Confidentiality of Alcohol and Drug Abuse Patient Records regulations: The Federal rules restrict any use of the information to criminally investigate or prosecute any alcohol or drug abuse patient.[facility] Center[facility] the event this information is protected by the Federal Confidentiality of Alcohol and Drug Abuse Patient Records regulations: The Federal rules restrict any use of the information to criminally investigate or prosecute any alcohol or drug abuse patient.[facility] Center[facility] the event this information is protected by the Federal Confidentiality of Alcohol and Drug Abuse Patient Records regulations: The Federal rules restrict any use of the information to criminally investigate or prosecute any alcohol or drug abuse patient.[facility] Center[facility] the event this information is protected by the Federal Confidentiality of Alcohol and Drug Abuse Patient Records regulations: The Federal rules restrict any use of the information to criminally investigate or prosecute any alcohol or drug abuse patient.[facility] CenterIn the event this information is protected by the Federal Confidentiality of Alcohol and Drug Abuse Patient Records regulations: The Federal rules restrict any use of the information to criminally investigate or prosecute any alcohol or drug abuse patient.[facility] CenterIn the event this information is protected by the Federal Confidentiality of Alcohol and Drug Abuse Patient Records regulations: The Federal rules restrict any use of the information to criminally investigate or prosecute any alcohol or drug abuse patient.[facility] CenterIn the event this information is protected by the Federal Confidentiality of Alcohol and Drug Abuse Patient Records regulations: The Federal rules restrict any use of the information to criminally investigate or prosecute any alcohol or drug abuse patient.[facility] CenterIn the event this information is protected by the Federal Confidentiality of Alcohol and Drug Abuse Patient Records regulations: The Federal rules restrict any use of the information to criminally investigate or prosecute any alcohol or drug abuse patient.[facility] CenterIn the event this information is protected by the Federal Confidentiality of Alcohol and Drug Abuse Patient Records regulations: The Federal rules restrict any use of the information to criminally investigate or prosecute any alcohol or drug abuse patient.[facility] CenterIn the event this information is protected by the Federal Confidentiality of Alcohol and Drug Abuse Patient Records regulations: The Federal rules restrict any use of the information to criminally investigate or prosecute any alcohol or drug abuse patient.[facility] CenterIn the event this information is protected by the Federal Confidentiality of Alcohol and Drug Abuse Patient Records regulations: The Federal rules restrict any use of the information to criminally investigate or prosecute any alcohol or drug abuse patient.[facility] CenterIn the event this information is protected by the Federal Confidentiality of Alcohol and Drug Abuse Patient Records regulations: The Federal rules restrict any use of the information to criminally investigate or prosecute any alcohol or drug abuse patient.[facility] CenterIn the event this information is protected by the Federal Confidentiality of Alcohol and Drug Abuse Patient Records regulations: The Federal rules restrict any use of the information to criminally investigate or prosecute any alcohol or drug abuse patient.[facility] CenterIn the event this information is protected by the Federal Confidentiality of Alcohol and Drug Abuse Patient Records regulations: The Federal rules restrict any use of the information to criminally investigate or prosecute any alcohol or drug abuse patient.[facility] CenterIn the event this information is protected by the Federal Confidentiality of Alcohol and Drug Abuse Patient Records regulations: The Federal rules restrict any use of the information to criminally investigate or prosecute any alcohol or drug abuse patient.[facility] CenterIn the event this information is protected by the Federal Confidentiality of Alcohol and Drug Abuse Patient Records regulations: The Federal rules restrict any use of the information to criminally investigate or prosecute any alcohol or drug abuse patient.[facility] CenterIn the event this information is protected by the Federal Confidentiality of Alcohol and Drug Abuse Patient Records regulations: The Federal rules restrict any use of the information to criminally investigate or prosecute any alcohol or drug abuse patient.[facility] CenterIn the event this information is protected by the Federal Confidentiality of Alcohol and Drug Abuse Patient Records regulations: The Federal rules restrict any use of the information to criminally investigate or prosecute any alcohol or drug abuse patient.[facility] CenterIn the event this information is protected by the Federal Confidentiality of Alcohol and Drug Abuse Patient Records regulations: The Federal rules restrict any use of the information to criminally investigate or prosecute any alcohol or drug abuse patient.[facility] CenterIn the event this information is protected by the Federal Confidentiality of Alcohol and Drug Abuse Patient Records regulations: The Federal rules restrict any use of the information to criminally investigate or prosecute any alcohol or drug abuse patient.[facility] CenterIn the event this information is protected by the Federal Confidentiality of Alcohol and Drug Abuse Patient Records regulations: The Federal rules restrict any use of the information to criminally investigate or prosecute any alcohol or drug abuse patient.[facility] CenterIn the event this information is protected by the Federal Confidentiality of Alcohol and Drug Abuse Patient Records regulations: The Federal rules restrict any use of the information to criminally investigate or prosecute any alcohol or drug abuse patient.[facility] CenterIn the event this information is protected by the Federal Confidentiality of Alcohol and Drug Abuse Patient Records regulations: The Federal rules restrict any use of the information to criminally investigate or prosecute any alcohol or drug abuse patient.[facility] CenterIn the event this information is protected by the Federal Confidentiality of Alcohol and Drug Abuse Patient Records regulations: The Federal rules restrict any use of the information to criminally investigate or prosecute any alcohol or drug abuse patient.[facility] CenterIn the event this information is protected by the Federal Confidentiality of Alcohol and Drug Abuse Patient Records regulations: The Federal rules restrict any use of the information to criminally investigate or prosecute any alcohol or drug abuse patient.[facility] CenterIn the event this information is protected by the Federal Confidentiality of Alcohol and Drug Abuse Patient Records regulations: The Federal rules restrict any use of the information to criminally investigate or prosecute any alcohol or drug abuse patient.[facility] CenterIn the event this information is protected by the Federal Confidentiality of Alcohol and Drug Abuse Patient Records regulations: The Federal rules restrict any use of the information to criminally investigate or prosecute any alcohol or drug abuse patient.[facility] CenterIn the event this information is protected by the Federal Confidentiality of Alcohol and Drug Abuse Patient Records regulations: The Federal rules restrict any use of the information to criminally investigate or prosecute any alcohol or drug abuse patient.[facility] CenterIn the event this information is protected by the Federal Confidentiality of Alcohol and Drug Abuse Patient Records regulations: The Federal rules restrict any use of the information to criminally investigate or prosecute any alcohol or drug abuse patient.[facility] CenterIn the event this information is protected by the Federal Confidentiality of Alcohol and Drug Abuse Patient Records regulations: The Federal rules restrict any use of the information to criminally investigate or prosecute any alcohol or drug abuse patient.[facility] CenterIn the event this information is protected by the Federal Confidentiality of Alcohol and Drug Abuse Patient Records regulations: The Federal rules restrict any use of the information to criminally investigate or prosecute any alcohol or drug abuse patient.[facility] CenterIn the event this information is protected by the Federal Confidentiality of Alcohol and Drug Abuse Patient Records regulations: The Federal rules restrict any use of the information to criminally investigate or prosecute any alcohol or drug abuse patient.[facility] CenterIn the event this information is protected by the Federal Confidentiality of Alcohol and Drug Abuse Patient Records regulations: The Federal rules restrict any use of the information to criminally investigate or prosecute any alcohol or drug abuse patient.[facility] CenterIn the event this information is protected by the Federal Confidentiality of Alcohol and Drug Abuse Patient Records regulations: The Federal rules restrict any use of the information to criminally investigate or prosecute any alcohol or drug abuse patient.[facility] CenterIn the event this information is protected by the Federal Confidentiality of Alcohol and Drug Abuse Patient Records regulations: The Federal rules restrict any use of the information to criminally investigate or prosecute any alcohol or drug abuse patient.[facility] CenterIn the event this information is protected by the Federal Confidentiality of Alcohol and Drug Abuse Patient Records regulations: The Federal rules restrict any use of the information to criminally investigate or prosecute any alcohol or drug abuse patient.[facility] CenterIn the event this information is protected by the Federal Confidentiality of Alcohol and Drug Abuse Patient Records regulations: The Federal rules restrict any use of the information to criminally investigate or prosecute any alcohol or drug abuse patient.[facility] CenterIn the event this information is protected by the Federal Confidentiality of Alcohol and Drug Abuse Patient Records regulations: The Federal rules restrict any use of the information to criminally investigate or prosecute any alcohol or drug abuse patient.[facility] CenterIn the event this information is protected by the Federal Confidentiality of Alcohol and Drug Abuse Patient Records regulations: The Federal rules restrict any use of the information to criminally investigate or prosecute any alcohol or drug abuse patient.[facility] CenterIn the event this information is protected by the Federal Confidentiality of Alcohol and Drug Abuse Patient Records regulations: The Federal rules restrict any use of the information to criminally investigate or prosecute any alcohol or drug abuse patient.[facility] CenterIn the event this information is protected by the Federal Confidentiality of Alcohol and Drug Abuse Patient Records regulations: The Federal rules restrict any use of the information to criminally investigate or prosecute any alcohol or drug abuse patient.[facility] CenterIn the event this information is protected by the Federal Confidentiality of Alcohol and Drug Abuse Patient Records regulations: The Federal rules restrict any use of the information to criminally investigate or prosecute any alcohol or drug abuse patient.[facility] CenterIn the event this information is protected by the Federal Confidentiality of Alcohol and Drug Abuse Patient Records regulations: The Federal rules restrict any use of the information to criminally investigate or prosecute any alcohol or drug abuse patient.[facility] CenterIn the event this information is protected by the Federal Confidentiality of Alcohol and Drug Abuse Patient Records regulations: The Federal rules restrict any use of the information to criminally investigate or prosecute any alcohol or drug abuse patient.[facility] CenterIn the event this information is protected by the Federal Confidentiality of Alcohol and Drug Abuse Patient Records regulations: The Federal rules restrict any use of the information to criminally investigate or prosecute any alcohol or drug abuse patient.[facility] CenterIn the event this information is protected by the Federal Confidentiality of Alcohol and Drug Abuse Patient Records regulations: The Federal rules restrict any use of the information to criminally investigate or prosecute any alcohol or drug abuse patient.[facility] CenterIn the event this information is protected by the Federal Confidentiality of Alcohol and Drug Abuse Patient Records regulations: The Federal rules restrict any use of the information to criminally investigate or prosecute any alcohol or drug abuse patient.[facility] CenterIn the event this information is protected by the Federal Confidentiality of Alcohol and Drug Abuse Patient Records regulations: The Federal rules restrict any use of the information to criminally investigate or prosecute any alcohol or drug abuse patient.[facility] CenterIn the event this information is protected by the Federal Confidentiality of Alcohol and Drug Abuse Patient Records regulations: The Federal rules restrict any use of the information to criminally investigate or prosecute any alcohol or drug abuse patient.[facility] CenterIn the event this information is protected by the Federal Confidentiality of Alcohol and Drug Abuse Patient Records regulations: The Federal rules restrict any use of the information to criminally investigate or prosecute any alcohol or drug abuse patient.[facility] CenterIn the event this information is protected by the Federal Confidentiality of Alcohol and Drug Abuse Patient Records regulations: The Federal rules restrict any use of the information to criminally investigate or prosecute any alcohol or drug abuse patient.[facility] Reason for Visit (unrecogniz ed section and content) Specialty Diagnoses / Procedures Referred By Caroline t Referred To Contact Diagnoses Iron deficiency anemia due to chronic blood loss Ulcerative colitis with rectal bleeding, unspecified location (HCC) Procedures IRON SUCROSE INJECTION PER 1 MG Ana Rico MD [address] [place] [address] Elieser Treat [facility] [address] [place] [address] Referral ID Status Reason Start Date Expiration Date V isits Requested Visits Authorized [id number] Authorized 12/16/2022 03/16/2023 1 13 Reason Comments Appointment Reason Comments Established Patient OV/lab Reason Comments Results Reason Comments Orders Reason Onset Date Comments Refill Request 08/21/2021 Reason Comments Forms Reason Comments Ulcerative Pancolitis Abd pain, rectal b leeding Reason Comments Refill Request Reason Onset Date Comments Refill Request 10/01/2021 Reason Comments Recheck No concerns Reason Onset Date Comments Refill Request 12/14/2021 Reason Comments Diarrhea abdominal pain, sob x 5 days Reason Onset Date Comments Depression Immunizations 12/21/2021 Flu vaccination Reason Comments Same Day Appointment passed out at work, hot flash and lightheaded and dizzy Reason Comments Established Patient Reason Comments Medication Authorization Reason Comments Patient Question Reason Comments Sore Throat ST, runny nose, bila teral ear pain and bodyaches x 2 days Reason Comments Recheck No concerns. Stool Reason Comments Well Woman Reason Comments Established Patient 4 month ov - lab res ults Reason Comments Initial OB Visit Reason Comments Milk Treater - Other PRAF Reason Comments Patient Update Reason Comments Vaginal Discharge Reason Onset Date Comments Care 09/03/2022 Reason Comments US Specialty Diagnoses / Procedures Referred By Contac t Referred To Contact [facility] Diagnoses Encounter for supervision of normal first in first trimester Procedures NUCHAL TRANSLUCENCY WHI US NUCHAL TRANSLUCENCY 1ST GESTATION Laureano Fajardo MD [address] [place] [address] [facility] [address] [place] [address] Referral ID Status Reason Start Date Expiration Date V isits Requested Visits Authorized [id number] Closed Auto-Generate d Referral 08/06/2022 08/06/2023 1 1 Reason Comments Established Patient Follow up visit - la b results Reason Comments Ulcerative pancolitis Colon not done Reason Onset Date Comments Refill Request 10/11/2022 Reason Comments ED Follow-up Reason Comments Milk Treater - Other PRAF 2 Reason Comments Orders Reason Comments Vaginal Problem itching and uncomfor table x 1 week, 24 weeks Reason Onset Date Comments Care 11/29/2022 Immunizations 11/29/2022 Flu vaccination Reason Comments Infusion Reason Comments Opened In Error Reason Comments Milk Treater - Other PRAF Reason Onset Date Comments Care 12/27/2022 Reason Onset Date Comments Care 01/24/2023 Specialty Diagnoses / Procedures Referred By Contac t Referred To Contact [facility] Diagnoses 30 weeks gestation of Ulcerative colitis with complication, unspecified location (HCC) Procedures OBSTETRIC ULTRASOUND WHI US PREG UTERUS AFTER 1ST TRIMEST GESTATION Laureano Fajardo MD [address] [place] [address] [facility] [address] [place] [address] Referral ID Status Reason Start Date Expiration Date V isits Requested Visits Authorized [id number] Closed Auto-Generate d Referral 01/09/2023 01/09/2024 2 1 Reason Onset Date Comments Care 02/07/2023 Reason Onset Date Comments Care 02/21/2023 Care Teams (unrecognized sec tion and content) Managed Care Provider Relationship Specialty Start Date End Date Britney Kay MD [address] [place], [place] [id number] [phone] PCP - General Internal Medicine 08/03/20 Managed Care Provider Relationship Specialty Start Date End Date Britney Kay MD [address] [place] [address] PCP - General Internal Medicine 08/03/20 Managed Care Provider Relationship Specialty Start Date End Date Britney Kay MD [address] [place] [address] PCP - General Internal Medicine 08/03/20 Managed Care Provider Relationship Specialty Start Date End Date Britney Kay MD [address] [facility] [address] PCP - General Internal Medicine 08/03/20 Managed Care Provider Relationship Specialty Start Date End Date Britney Kay MD [address] [place] [address] PCP - General Internal Medicine 08/03/20 Managed Care Provider Relationship Specialty Start Date End Date Britney Kay MD [address] [facility] [address] PCP - General Internal Medicine 08/03/20 Managed Care Provider Relationship Specialty Start Date End Date Britney Kay MD [address] [place] [address] PCP - General Internal Medicine 08/03/20 Managed Care Provider Relationship Specialty Start Date End Date Britney Kay MD [address] [place] [address] PCP - General Internal Medicine 08/03/20 Managed Care Provider Relationship Specialty Start Date End Date Britney Kay MD [address] [place] [address] PCP - General Internal Medicine 08/03/20 Managed Care Provider Relationship Specialty Start Date End Date Britney Kay MD [address] [place] [address] PCP - General Internal Medicine 08/03/20 Managed Care Provider Relationship Specialty Start Date End Date Britney Kay MD [address] [place] [address] PCP - General Internal Medicine 08/03/20 Managed Care Provider Relationship Specialty Start Date End Date Britney Kay MD [address] [place] [address] PCP - General Internal Medicine 08/03/20 Managed Care Provider Relationship Specialty Start Date End Date Britney Kay MD [address] [place] [address] PCP - General Internal Medicine 08/03/20 Managed Care Provider Relationship Specialty Start Date End Date Britney Kay MD [address] [place] [address] PCP - General Internal Medicine 08/03/20 Managed Care Provider Relationship Specialty Start Date End Date Britney Kay MD [address] [place] [address] PCP - General Internal Medicine 08/03/20 Managed Care Provider Relationship Specialty Start Date End Date Britney Kay MD [address] [place] [address] PCP - General Internal Medicine 08/03/20 Managed Care Provider Relationship Specialty Start Date End Date Britney Kay MD [address] [place] [address] PCP - General Internal Medicine 08/03/20 Managed Care Provider Relationship Specialty Start Date End Date Britney Kay MD [address] [place] [address] PCP - General Internal Medicine 08/03/20 Managed Care Provider Relationship Specialty Start Date End Date Britney Kay MD [address] [facility] [place] [address] PCP - General Internal Medicine 08/03/20 Managed Care Provider Relationship Specialty Start Date End Date Britney Kay MD [address] [facility] [place] [address] PCP - General Internal Medicine 08/03/20 Managed Care Provider Relationship Specialty Start Date End Date Britney Kay MD [address] [facility] [place] [address] PCP - General Internal Medicine 08/03/20 Managed Care Provider Relationship Specialty Start Date End Date Britney Kay MD [address] [facility] [place] [address] PCP - General Internal Medicine 08/03/20 Managed Care Provider Relationship Specialty Start Date End Date Britney Kay MD [address] [facility] [place] [address] PCP - General Internal Medicine 08/03/20 Managed Care Provider Relationship Specialty Start Date End Date Britney Kay MD [address] [facility] [place] [address] PCP - General Internal Medicine 08/03/20 Managed Care Provider Relationship Specialty Start Date End Date Britney Kay MD [address] [place] [address] PCP - General Internal Medicine 08/03/20 Managed Care Provider Relationship Specialty Start Date End Date Britney Kay MD [address] [place] [address] PCP - General Internal Medicine 08/03/20 Managed Care Provider Relationship Specialty Start Date End Date Britney Kay MD [address] [place] [address] PCP - General Internal Medicine 08/03/20 Managed Care Provider Relationship Specialty Start Date End Date Britney Kay MD [address] [place] [address] PCP - General Internal Medicine 08/03/20 Managed Care Provider Relationship Specialty Start Date End Date Britney Kay MD [address] [place] [address] PCP - General Internal Medicine 08/03/20 Managed Care Provider Relationship Specialty Start Date End Date Britney Kay MD [address] [place] [address] PCP - General Internal Medicine 08/03/20 Managed Care Provider Relationship Specialty Start Date End Date Britney Kay MD [address] [place] [address] PCP - General Internal Medicine 08/03/20 Managed Care Provider Relationship Specialty Start Date End Date Britney Kay MD [address] [place] [address] PCP - General Internal Medicine 08/03/20 Managed Care Provider Relationship Specialty Start Date End Date Britney Kay MD [address] [place] [address] PCP - General Internal Medicine 08/03/20 Managed Care Provider Relationship Specialty Start Date End Date Britney Kay MD [address] [place], [place] [address] PCP - General Internal Medicine 08/03/20 Managed Care Provider Relationship Specialty Start Date End Date Britney Kay MD [address] [place], [place] [address] PCP - General Internal Medicine 08/03/20 Managed Care Provider Relationship Specialty Start Date End Date Britney Kay MD [address] [place], [place] [address] PCP - General Internal Medicine 08/03/20 FOR RECORDS PERTAINING TO PATIENTS WHO ARE OR HAVE BEEN ENROLLED IN A CHEMICAL DEPENDENCY/SUBSTANCEABUSE PROGRAM, SOME INFORMATION MAY BE OMITTED. This clinical summary was aggregated from multiple sources. Caution should be exercised in using it in the provision of clinical care. This summary normalizes information from multiple sources, and as a consequence, information in this document may materially change the coding, format and clinical context of patient data. In addition, data may be omitted in some cases. CLINICAL DECISIONS SHOULD BE BASED ON THE PRIMARY CLINICAL RECORDS. [facility] [employer] [facility]. provides no warranty or guarantee of the accuracy or completeness of information in this document.
[2023-03-18] MEDS: Lactated Ringers 1,000 ML 50 ML IV (05:10)
[2023-03-18 05:27] LABS: Absolute Lymphocyte Count 1.47 X10^3/uL (0.83-4.51); Absolute Neutrophil Count 10.4 X10^3/uL (2.0-7.7); Basophil# 0.03 X10^3/uL; Basophil% 0.2 % (0-1); Eosinophil# 0.01 X10^3/uL; Eosinophils% 0.1 % (0-5); Hematocrit 35.1 % (37-47); Hemoglobin 11.5 g/dL (12.0-15.0); Lymphocyte # 1.47 X10^3/ul (0.83-4.51); Lymphocyte % 11.6 % (19-41); Mean Corp Hgb Conc 32.8 g/dL (32-36); Mean Corpuscular Hgb 29.4 pg (27.0-32.0); Mean Corpuscular Volume 89.8 fL (81-99); Mean Platelet Vol. 9.7 fl (6.2-12.0); Monocyte# 0.72 X10^3/uL; Monocyte% 5.7 % (0-10); NRBC Flagged by Analyzer 0 % (0-5); Neutrophil # 10.43 X10^3/uL (2.7-7.7); Platelet Count 318 K/mm3 (150-450); RBC Distribution Width CV 13.7 % (11.6-14.6); RBC Distribution Width SD 44.8 fl (35.1-43.9); Red Blood Count 3.91 M/mm3 (4.2-5.4); White Blood Count 12.7 K/mm3 (4.4-11.0)
[2023-03-18] MEDS: Ondansetron 4 MG/2 ML Vial IV ×2 (05:41→11:14)
[2023-03-18] MEDS: LACTATED RINGERS 500 ML 999 ML IV (05:46)
[2023-03-18] MEDS: fentaNYL-bupivacaine (epidural) 100 ML BAG EPIDURAL ×2 (07:00→11:14)
[2023-03-18 08:09] LABS: Syphilis Antibodies Non-reactive
--- NOTE | 2023-03-18 09:01 | PCM.HP.OB ---
HPI - General General Date of Admission: 03/18/23 Date of Service: 03/18/23 HPI Narrative CARIN BARNES, is a 22 F who presents with ctxs. Maternal Data Information Final NAJMA: 03/18/23 Gestational age: 40 weeks [facility] Medical History (Updated 03/18/23 @ 13:[address] Dora Tamayo MD) Anxiety and depression Iron deficiency anemia Palpitations Shortness of breath Tachycardia Ulcerative colitis Home Medications ferrous sulfate 325 mg (65 mg iron) tablet 325 mg PO DAILY 10/25/22 [History Last Taken Unknown] vit 122-ferrous fumarate 27 mg iron-folic acid 800 mcg tablet ( Multi) 1 tab PO DAILY 10/25/22 [History Last Taken Unknown] ondansetron HCl 4 mg tablet mg 03/18/23 [History Last Taken Unknown] Allergy/AdvReac Type Severity Reaction Status Date / Time No Known Allergies Allergy Verified 03/18/23 03:08 Family History (Updated 10/25/22 @ 11:16 by Carol Ann Fountain) Mother Hypertension Gluten intolerance Father Hypertension Sister Heart murmur Grandmother Heart disease Diabetes Grandfather Hypertension Heart disease Cancer Grandmother Heart disease Hypertension Grandfather Myocardial infarction, Onset Age: 52 Surgical History History of colonoscopy History of esophagogastroduodenoscopy (EGD) Social History (Updated 10/25/22 @ 11:11 by Carol Ann Fountain) Smoking Status: Never smoker alcohol intake: never substance use type: does not use History Elective abortions Hx Para 0 Spontaneous abortions Hx # Term Pregnancies Ectopic pregnancies Hx # Pregnancies Multiple births # of living children NST FHR Rate Baby A Baseline: 130 Variability:: Moderate Accelerations:: 15 x 15 Decelerations:: Variable Uterine Activity:: Q3-4 min Vital Signs Vital Signs Vital Signs: 03/18/23 02:53 03/18/23 02:53 03/18/23 02:53 Temperature Temperature Source Pulse Rate 120 H Blood Pressure 129/83 H BP Systolic 129 BP Diastolic 83 Pulse Ox 94 03/18/23 02:53 03/18/23 02:53 03/18/23 02:58 Temperature Temperature Source Pulse Rate 120 H 122 H Blood Pressure BP Systolic BP Diastolic Pulse Ox 97 03/18/23 02:58 03/18/23 03:03 03/18/23 03:03 Temperature Temperature Source Pulse Rate 119 H Blood Pressure BP Systolic BP Diastolic Pulse Ox 98 97 03/18/23 03:08 03/18/23 03:08 03/18/23 03:13 Temperature Temperature Source Pulse Rate 116 H 116 H Blood Pressure BP Systolic BP Diastolic Pulse Ox 97 03/18/23 03:13 03/18/23 03:18 03/18/23 03:18 Temperature Temperature Source Pulse Rate 112 H Blood Pressure BP Systolic BP Diastolic Pulse Ox 98 97 03/18/23 03:23 03/18/23 03:23 03/18/23 03:28 Temperature Temperature Source Pulse Rate 109 H 113 H Blood Pressure BP Systolic BP Diastolic Pulse Ox 97 03/18/23 03:28 03/18/23 04:51 03/18/23 04:51 Temperature Temperature Source Pulse Rate 81 Blood Pressure 121/72 H BP Systolic 121 BP Diastolic 72 Pulse Ox 97 03/18/23 04:51 03/18/23 04:51 03/18/23 06:39 Temperature 97.4 F L Temperature Source Pulse Rate Blood Pressure BP Systolic BP Diastolic Pulse Ox 99 94 03/18/23 06:39 03/18/23 06:39 03/18/23 06:39 Temperature Temperature Source Temporal Pulse Rate 107 H Blood Pressure BP Systolic BP Diastolic Pulse Ox 98 03/18/23 06:43 03/18/23 06:43 03/18/23 06:39 Temperature 97.9 F Temperature Source Pulse Rate 116 H Blood Pressure 124/80 H BP Systolic 124 BP Diastolic 80 Pulse Ox 03/18/23 06:44 03/18/23 06:44 03/18/23 06:48 Temperature Temperature Source Pulse Rate 108 H Blood Pressure 123/74 H BP Systolic 123 BP Diastolic 74 Pulse Ox 96 03/18/23 06:48 03/18/23 06:48 03/18/23 06:50 Temperature Temperature Source Pulse Rate 109 H 92 Blood Pressure BP Systolic BP Diastolic Pulse Ox 94 03/18/23 06:50 03/18/23 06:53 03/18/23 06:53 Temperature Temperature Source Pulse Rate 86 Blood Pressure 94/52 L BP Systolic 94 BP Diastolic 52 Pulse Ox 97 03/18/23 06:54 03/18/23 06:54 03/18/23 06:55 Temperature Temperature Source Pulse Rate 94 113 H Blood Pressure 88/55 L BP Systolic 88 BP Diastolic 55 Pulse Ox 03/18/23 06:55 03/18/23 06:58 03/18/23 06:58 Temperature Temperature Source Pulse Rate 106 H Blood Pressure 121/73 H BP Systolic 121 BP Diastolic 73 Pulse Ox 97 03/18/23 06:59 03/18/23 06:59 03/18/23 07:00 Temperature Temperature Source Pulse Rate 82 82 Blood Pressure 130/71 H BP Systolic 130 BP Diastolic 71 Pulse Ox 03/18/23 07:00 03/18/23 07:03 03/18/23 07:03 Temperature Temperature Source Pulse Rate 72 Blood Pressure 126/68 H BP Systolic 126 BP Diastolic 68 Pulse Ox 98 03/18/23 07:05 03/18/23 07:05 03/18/23 07:08 Temperature Temperature Source Pulse Rate 80 Blood Pressure 122/71 H BP Systolic 122 BP Diastolic 71 Pulse Ox 98 03/18/23 07:08 03/18/23 07:10 03/18/23 07:10 Temperature Temperature Source Pulse Rate 85 84 Blood Pressure BP Systolic BP Diastolic Pulse Ox 98 03/18/23 07:13 03/18/23 07:13 03/18/23 07:15 Temperature Temperature Source Pulse Rate 81 86 Blood Pressure 126/72 H BP Systolic 126 BP Diastolic 72 Pulse Ox 03/18/23 07:15 03/18/23 07:18 03/18/23 07:18 Temperature Temperature Source Pulse Rate 100 Blood Pressure 129/81 H BP Systolic 129 BP Diastolic 81 Pulse Ox 98 03/18/23 07:20 03/18/23 07:20 03/18/23 07:23 Temperature Temperature Source Pulse Rate 76 Blood Pressure 125/81 H BP Systolic 125 BP Diastolic 81 Pulse Ox 95 03/18/23 07:23 03/18/23 07:25 03/18/23 07:25 Temperature Temperature Source Pulse Rate 78 75 Blood Pressure BP Systolic BP Diastolic Pulse Ox 98 03/18/23 07:28 03/18/23 07:28 03/18/23 07:30 Temperature Temperature Source Pulse Rate 83 82 Blood Pressure 116/74 BP Systolic 116 BP Diastolic 74 Pulse Ox 03/18/23 07:30 03/18/23 07:33 03/18/23 07:33 Temperature Temperature Source Pulse Rate 78 Blood Pressure 123/82 H BP Systolic 123 BP Diastolic 82 Pulse Ox 97 03/18/23 07:37 03/18/23 07:37 03/18/23 08:01 Temperature 97.3 F L Temperature Source Temporal Pulse Rate Blood Pressure 124/80 H BP Systolic 124 BP Diastolic 80 Pulse Ox 03/18/23 08:01 Temperature Temperature Source Pulse Rate 79 Blood Pressure BP Systolic BP Diastolic Pulse Ox Weight Weight: 166 lb 12.8 oz Body Mass Index (BMI) 31.5 Physical Exam Const alert, oriented x3 and no apparent distress Chest inspection of chest normal GI soft to palpation, non-tender and non-distended Inspection: gravid external exam normal Narrative: cvx - 4/80/-1, AROM clear fluid Labs Labs Labs: Blood Type O NEGATIVE Antibody Screen NEGATIVE Hct 35.1 % (37-47) L Hgb 11.5 g/dL (12.0-15.0) L Syphilis Total Ab Non-reactive Assessment & Plan (1) 40 weeks gestation of : COMMENT: @ 40 weeks in labor PLAN: Plan Admit to L&D AROM & IUPC placed Plan for pitocin augmentation GBS negative Pain - epidural EFW - less than 4500g, patient with adequate pelvis
[2023-03-18] MEDS: Oxytocin 15 Units/NS 250ml 15 UNITS/250 ML IV.SOLN 2 UNITS IV (10:15)
[2023-03-18] MEDS: Lactated Ringers 1,000 ML 200 ML IV (11:14)
--- NOTE | 2023-03-18 13:58 | EX.PCM.OBRPT ---
Maternal Data Information Final NAJMA: 03/18/23 Gestational age: 40 weeks Vaginal Delivery Maternal Presentation Maternal Presentation: Active Labor Operative Information Date of Procedure: 03/18/23 Pre-Operative Diagnosis: Labor Post-Operative Diagnosis: Labor Surgery / Procedure Performed: Spontaneous Vaginal Delivery Type of Anesthesia: Epidural Estimated Blood Loss: 200ml Findings Description of Procedure: Patient prepped & draped when C/C/+2. She pushed well to deliver the head. head gently guided to allow delivery of anterior and posterior shoulders. No excess traction placed on head. Body delivered and 3VC clamped & cut in delayed fashion. Placenta delivered with gentle traction and good uterine tone obtained. Presentation: MICHELE Amniotic Membrane Rupture Type: Artificial Amniotic Fluid Description: Clear Placental Delivery Description: Expressed Placenta Disposition: [facility] Specimen(s) Removed: Placenta Cord Vessel Description: 3 Vessels Cord Entanglement: Around neck x 1, loose Nuchal Cord Compression: Without compression Infant A Gender: Female (1 minute): 8 (5 minute): 9 Delayed Cord Clamping: Yes Post Vaginal Delivery Medications Given After Delivery: IV Pitocin Episiotomy Description: None Laceration: 1st degree (bilateral vaginal & 2nd degree perineal - repaired with 3-0 vicryl) Complication Complications: None
[2023-03-18] MEDS: Oxytocin 15 Units/NS 250ml 15 UNITS/250 ML IV.SOLN 83 UNITS IV (14:40)
[2023-03-18] MEDS: 0.9% Saline Lock 10 ML Syringe IV ×2 (17:07→18:50)
[2023-03-18] MEDS: Rho(D) Immune Globulin 300 MCG (1500 Unit) Syringe IV (18:49)
[2023-03-19] VITALS: BP 114/72; PULSE 70; RESP 16; TEMP 36.7; O2SAT 95
[2023-03-19 04:09] VITALS: BP 109/73; PULSE 85; RESP 16; TEMP 36.9; O2SAT 95
[2023-03-19] MEDS: Benzocaine/Lanolin/Aloe Vera 1 SPRAY EACH TOPICAL (05:33)
[2023-03-19 08:00] VITALS: BP 103/60; PULSE 87; RESP 18; TEMP 37.2; O2SAT 95
--- NOTE | 2023-03-19 08:20 | DS.PCM_ITS ---
Providers Date of Admission: 03/18/23 Primary Care Physician: Dr. Jodie Johnson MD Reason For Visit: VAGINAL DELIVERY Diagnosis Discharge Diagnosis (1) (spontaneous vaginal delivery): Status: Acute Code(s): O80 - Encounter for full-term uncomplicated delivery (2) Care and examination of lactating mother: Status: Acute Code(s): Z39.1 - Encounter for care and examination of lactating mother (3) Laceration, obstetrical, first degree: Status: Acute Code(s): O70.0 - First degree perineal laceration during delivery Medications at Discharge Home Medications ferrous sulfate 325 mg (65 mg iron) tablet 325 mg PO DAILY 10/25/22 vit 122-ferrous fumarate 27 mg iron-folic acid 800 mcg tablet ( Multi) 1 tab PO DAILY 10/25/22 Hospital Course Operations None Procedures None Summary of Care Provided Minutes Spent on Discharge: 15 Hospital Course: Patient had . Hospital course was uneventful. Physical Exam Narrative Patient seen at bedside. Feeling good. Denies any pain. Ambulating and voiding without difficulty. with some support. Denies any headache, vision changes, dizziness, SOB, or CP. Desires discharge home after 24 hours. Const alert and no apparent distress General Appearance: cooperative and comfortable Exam Limitations: no limitations HEENT normocephalic Eyes General Eye: normal appearance of both eyes Neck full ROM General: normal visual inspection Chest Chest: symmetrical chest wall rise Resp normal respiratory effort and normal air movement Effort and Inspection: symmetric chest movement Auscultation: clear to auscultation bilaterally Cardio regular rate and regular rhythm GI normal to inspection, nondistended, normoactive bowel sounds Back/Spine normal ROM Extremity full ROM and no calf tenderness General Extremity: normal exam except as noted Skin no rashes or lesions noted Neuro CN's II-XII intact bilaterally Psych mental status grossly normal Weight / BMI Weight Weight: 166 lb 12.8 oz Body Mass Index (BMI) 31.5 ABG / Lab / Microbiology Data 03/18/23 05:10 Laboratory: Laboratory Results - last 24 hr 03/18/23 17:00: Screen NEGATIVE, Baby's Blood Type O POSITIVE, Baby's SAVANNAH NEGATIVE D/C Instructions Discharge Diet: No restrictions May resume sexual activity in: 6-8 weeks Weight Bearing Status: Weight bearing as tolerated Call your doctor if you observe: Fever of 101 or Higher, Inability to urinate, Using more than 1 pad per hour, Shortness of breath, Chest pain, Calf discomfort and Uncontrolled pain Please Follow Up With: Judy Davis CNM When: 2 weeks virtual visit/ 6 weeks in office Meaningful Use Info Meaningful Use Diagnoses (Choose all that apply): None applicable Discharge Plan Admission Admit Date/Time: 03/18/23 04:45 Primary Reason for Your Visit: Labor and Delivery Attending Provider: Dora Tamayo Primary Care Provider: Jodie Johnson Discharge Orders/Prescriptions Prescriptions: Continued Multi 27-800 mg-mcg tablet 1 tab PO DAILY ferrous sulfate 325 mg (65 mg iron) tablet 325 mg PO DAILY Patient Comments: TAKE 1 TABLET BY MOUTH EVERY DAY WITH BREAKFAST Rx Instructions: PT STATES SHE TAKES IT WHENEVER SHE FEELS LIGHTHEADED-USUALLY <1X/WEEK Discontinued ondansetron HCl 4 mg tablet Patient Comments: TAKE 1 TABLET BY MOUTH EVERY 8 HOURS NEEDED FOR NAUSEA AND VOMITING Referrals / Follow Up: Judy Davis CNM [Med Staff - [facility] Practice Prof] - Jodie Johnson MD [Primary Care Provider] - Disposition Disposition (needs filled in before D/C Order can be placed): Home, Self Care
[2023-03-19 12:09] VITALS: BP 117/50; PULSE 87; RESP 16; TEMP 37.1; O2SAT 97
--- NOTE | 2023-03-19 13:21 | CASEMGMT ---
Social Work Assessment Labor and Delivery Unit Patient Address:[address] [place] [id number] Phone number: [phone] Date of Referral: 03/18/23 Time of Referral:? 1903 Referred By: Dora Tamayo Date of Intervention: ??03/19/23 Time of Intervention:? 1030 Reason for Referral:? hx of anxiety and depression Sw completed chart review and acknowledges social work consult entered due to maternal mental health history positive for anxiety and depression. Sw presented to bedside and introduced self to mother of baby (NABILA- Lyons) and explained sw role during hospitalization. Visitor present in room, MOB indicates that it is maternal grandpa, and states that it is ok for sw to complete assessment for grandpa present. Sw completed psychosocial assessment and then asked grandpa to step out of room momentarily while MOB completed [place] Depression Scale. History obtained from: medical records, MOB Household composition: NABILA states that she is currently residing with father of baby (TREVOR- Jairo Maldonado) and now baby. MOB denies any concerns with their housing at this time. Patient's parent/guardian status:? ?MOB states that she and TREVOR have been together for 2.5 years. They met on an online dating website. MOB denies any concerns with domestic violence or intimate partner violence. baby is first baby for both parents. Medical History: ?NABILA is 22 year old female who is 1, para 0-now 1 following labor and delivery of . NABILA received routine care during with [facility]. NABILA presented to hospital and delivered baby via vaginal delivery at 40 weeks gestation on 03/18/23. Baby girl, named Gordon Lima, was born weighing 6lb 14oz and her apgars were 8 and 9 at one and five minutes of life respectfully. MOB states that she is breast feeding and this is going well. MOB reports that baby will be followed by Dr. Reyna for pediatrics. Educational Status:? MOB graduated from high school, [employer] obtained an associates degree. MOB denies any issues with reading, learning or comprehension. Financial Status: Both parents are gainfully employed outside of the home. TREVOR is a diesel electrician at [employer]. MOB states that he is able to take some time off now that baby has been born. 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 NABILA is able to take 12 weeks off of work for maternity leave. Supplies:?? Parents have obtained all necessary baby supplies, including: car seat, safe sleep space, clothes, diapers, wipes and a breast pump. Childcare/Caregiver(s):? When nabila is at work she states that grandparents will be able to assist with childcare needs. Transportation:?? Both parents have their drivers license and reliable means of transportation. No barriers at this time. Programs/Agencies Involved: ???NABILA is connected to secondary insurance through [employer]. Sw informed MOB she has thirty days to get baby added to her insurance. MOB expressed understanding. MOB is also connected to [place]. Children Services/Legal Issues:??? No history of involvement, no issues or concerns warranting a referral to be made at this time. Behavioral Health Issues: ??Mental Health History:??NABILA states that TREVOR does not have any mental health diagnoses. NABILA acknowledges that she has been diagnosed with anxiety and depression. MOB states that she has had these diagnoses for a long time, there are not specific triggers that she can pinpoint. MOB states that sometimes she just starts to feel anxious or down, but uses coping skills to help. MOB denies pharmacological medications at this time. ?MOB completed [place] Depression Scale, her score was a 2. Sw provided education and support. Substance Use History:?NABILA denies substance use prior to and during .? Family History:?NABILA denies family history of addiction and significant mental health diagnoses. ? Drug Screens: ??No urine screens observed in chart review. Family/Social Stressors:? NABILA denies stressors at this time. Support Systems: NABILA states that she has a lot of natural supports found in FOB and both sets of grandparents. Depression/Shaken Baby/Safe Sleeping:? Sw educated MOB on signs and symptoms of baby blues and depression and anxiety. Sw provided literature for MOB to review that includes list of appropriate coping skills. MOB expressed understanding. Sw educated MOB on shaken baby prevention and ABCs of safe sleep. MOB expressed understanding. ASSESSMENT:? Sw met with MOB at bedside, also present for portion of assessment was maternal grandpa. Grandpa did leave room respectfully when asked so that MOB could complete [place] Depression Scale. MOB engaged in conversation during completion of psychosocial assessment. MOB maintained eye contact and also tended to who was laying on boppy pillow on bed with MOB supervision. MOB receptive to support and resources provided. PLAN:? MOB and baby to be discharged when medically ready. ?No other services requested or indicated. Ivis Kwong, NUTRITION INSTRUCTOR, [employer] LAMINATING OPERATOR
--- NOTE | 2023-03-22 07:53 | NURSING ---
03/21/23 1155: Pt. called as family did not show up for their scheduled visit. Pt. reports that she tried but then gave formula and it felt like took that better so they've mostly formula fed since being home. Pt. reports overall she feels well, with no s+s reported. Follow up questions asked, family doing well, no complaints. Encouragement and support given.
== END 2023-03-19 15:00 | disposition home or self-care (01) | DRG 807 ==
LOC: WPOUT 04:50 → WP 04:50
PROVIDERS: Advanced Practice Midwife; Admitting Provider Obstetrics & Gynecology; PCP Internal Medicine; Visit Provider Obstetrics & Gynecology
DX: O76 Abnormality in fetal heart rate and rhythm complicating labor and delivery (principal); Z37.0 Single live birth; D50.9 Iron deficiency anemia, unspecified; O99.02 Anemia complicating childbirth; O69.81X0 Labor and delivery complicated by cord around neck, without compression, not applicable or unspecified; O70.0 First degree perineal laceration during delivery; Z3A.40 40 weeks gestation of pregnancy
CPT/HCPCS: 59050; 85025; 85461; 86780; 86850; 86900; 86901; 90384; 99221; J7120; A4216; G0378; J2405; J2790; J2791

== ENCOUNTER 2024-01-18 00:44 | Emergency (ER) | payer BC, MEDICAID, SELFPAY ==
[2024-01-18 00:44] VITALS: BP 103/71; PULSE 60; RESP 16; TEMP 36.6; O2SAT 98; BMI 39.7
[2024-01-18] MEDS: Dicyclomine 10 MG Capsule 20 MG PO (01:09)
[2024-01-18] MEDS: Ketorolac 30 MG/ML Syringe IV (01:09)
[2024-01-18 01:24] LABS: Absolute Lymphocyte Count 2.22 X10^3/uL (0.83-4.51); Absolute Neutrophil Count 8.2 X10^3/uL (2.0-7.7); Basophil# 0.05 X10^3/uL; Basophil% 0.4 % (0-1); Eosinophil# 0.31 X10^3/uL; Eosinophils% 2.7 % (0-5); Hematocrit 30.2 % (37-47); Hemoglobin 9.3 g/dL (12.0-15.0); Lymphocyte # 2.22 X10^3/ul (0.83-4.51); Lymphocyte % 19.2 % (19-41); Mean Corp Hgb Conc 30.8 g/dL (32-36); Mean Corpuscular Hgb 25.7 pg (27.0-32.0); Mean Corpuscular Volume 83.4 fL (81-99); Mean Platelet Vol. 9.1 fl (6.2-12.0); Monocyte% 6.1 % (0-10); NRBC Flagged by Analyzer 0 % (0-5); Neutrophil # 8.23 X10^3/uL (2.7-7.7); Neutrophil % 71.1 % (47-70); Platelet Count 403 K/mm3 (150-450); RBC Distribution Width SD 39.1 fl (35.1-43.9); Red Blood Count 3.62 M/mm3 (4.2-5.4); White Blood Count 11.6 K/mm3 (4.4-11.0)
[2024-01-18 01:35] LABS: Internal QC Validated? YES +Cl - CLEAR BKGD; Pregnancy, Serum, hCG Quali. NEGATIVE Negative
[2024-01-18 01:38] LABS: Anion Gap 6 (5-15); BUN 6 mg/dL (7-18); BUN/Creat Ratio 10.7 RATIO (10-20); Calcium,Total 8.4 mg/dL (8.5-10.1); Chloride 105 mmol/L (98-107); Creatinine, Serum 0.56 mg/dL (0.55-1.02); EST Glomerular Filtration Rate 143 mL/min (>60); Est Glom Filt Rate - Afr Amer 174 mL/min (>60); Estimated Creatinine Clearance 166.37 ml/min; Glucose 166 mg/dL (74-106); Potassium 2.9 mmol/L (3.5-5.1); Sodium Level 140 mmol/L (136-145)
[2024-01-18 02:44] VITALS: BP 110/49; PULSE 67; RESP 16; O2SAT 98
[2024-01-18 03:33] LABS: Color, Urine Yellow (Yellow); Glucose, Dipstick Normal (Normal); Ketone-Dipstick Negative (Negative); Leukocyte Esterase-Dipstick Negative /ul (Negative); Nitrite-Dipstick Negative (Negative); Occult Blood-Urine 10 /ul (Negative); Protein-Dipstick 15 mg/dl (Negative); Urine Bilirubin Dipstick Negative (Negative); Urine Clarity Clear (Clear); Urine Urobilinogen Normal (Normal)
[2024-01-18 03:36] LABS: Bacteria 0 SEEN /hpf (None Seen); Mucous, Urine 0 SEEN /hpf (<or=2+); Red Blood Cells-Urine 0 SEEN /hpf (0-5); Squamous Epithelial Cells - UA 0 SEEN /hpf (5-10)
[2024-01-18 03:38] LABS: White Blood Cells 0-5 SEEN /hpf (0-5)
[2024-01-18] MEDS: Potassium Chloride Oral Tablet 20 MEQ 40 MEQ PO (03:39)
[2024-01-18] MEDS: Morphine 4 MG/ML Syringe IV (03:40)
[2024-01-18 03:42] VITALS: BP 110/49; PULSE 67; RESP 16; TEMP 36.8; O2SAT 99
== END 2024-01-18 03:50 | disposition home or self-care (01) ==
PROVIDERS: Emergency Provider Emergency Medicine; PCP Internal Medicine; Visit Provider Emergency Medicine
DX: N20.1 Calculus of ureter (principal); K52.9 Noninfective gastroenteritis and colitis, unspecified; E87.6 Hypokalemia; Z79.899 Other long term (current) drug therapy
CPT/HCPCS: 74177; 80048; 81001; 84703; 85025; 96374; 96375; 96376; 99283; Q9967; A4216

== ENCOUNTER 2024-06-08 08:40 | Emergency (ER) | payer BC, MEDICAID, SELFPAY ==
[2024-06-08 08:41] VITALS: BP 131/93; PULSE 118; RESP 18; TEMP 36.9; O2SAT 98; BMI 23.4
--- NOTE | 2024-06-08 09:04 | EDS_ITS ---
HPI HPI - GI History of Present Illness Chief Complaint: Abd Pain Informant: patient Narrative Narrative: 23-year-old female presenting with fatigue and persistent diarrhea. She has ulcerative colitis, follows with a paperboard boxes estimator of [place], [place]. She states that her oral medication regimen was not controlling her UC, so her GI specialist had her stop her medication and tested her for C. difficile which was positive, and initiated treatment for that. However the patient stopped the treatment prior to finishing it because she was not tolerating it well and/or feeling very poorly, this was 6 or 7 weeks ago. She states that she had an episode of near syncope couple weeks ago, but has had no lightheadedness or recurrent episodes since then. She states she just picked up her collection kit to retest herself for C. difficile, and if and when she test negative, the plan is to start IV infusion/Biologics for her UC. In the past week, she states she has actually been feeling a little better. However, she states family told her this morning she looked pale and they did not want her driving to work because the last time she had a near syncopal episode she was driving, so the patient went to urgent care but since her heart rate was a little elevated, they sent her here to the ER. Patient states she has had poor appetite and fluid intake related to all of this. She states her urine has been a little dark in the last and amount in the last 2 days, and although she has been feeling better in the last week, with doing activities she tires out very quickly but does not become lightheaded or near syncopal. [facility] Medical History Laceration, obstetrical, first degree Care and examination of lactating mother (spontaneous vaginal delivery) 40 weeks gestation of Shortness of breath Palpitations Tachycardia Iron deficiency anemia Anxiety and depression Ulcerative colitis Home Medications ?Medication ?Instructions ?Recorded ?Last Taken ?Type sertraline 100 mg tablet 100 mg PO DAILY 01/18/24 Unk nown History potassium chloride 20 mEq 20 meq PO BID #30 tabs 06/08 Unknown Rx tablet,extended release Allergy/AdvReac Type Severity Reaction Status Date / Time No Known Allergies Allergy Verified 06/08/24 08:40 Family History (Updated 10/25/22 @ 11:16 by Carol Ann Nolt) Mother Hypertension Gluten intolerance Father Hypertension Sister Heart murmur Grandmother Heart disease Diabetes Grandfather Hypertension Heart disease Cancer Grandmother Heart disease Hypertension Grandfather Myocardial infarction, Onset Age: 52 Surgical History History of esophagogastroduodenoscopy (EGD) History of colonoscopy Social History Smoking Status: Never smoker alcohol intake: never substance use type: does not use ROS ROS ED Constitutional Constitutional ED: Reports anorexia, fatigue and weight loss; Denies chills or fever(s) Eyes Eyes: Denies change in vision or diplopia ENT ENT ED: Denies rhinorrhea or sore throat Cardiovascular Cardiovascular: Denies chest pain, lightheadedness, palpitations or syncope Respiratory/Chest Respiratory/Chest: Denies cough or dyspnea Gastrointestinal Gastrointestinal: Reports diarrhea and hematochezia; Denies abdominal pain, nausea or vomiting Genitourinary Genitourinary ED: Denies dysuria or hematuria Musculoskeletal Musculoskeletal: Denies back pain or neck pain Integumentary Denies abscess or rash Neurologic Neurologic: Denies headache(s), paresthesias or weakness Psychiatric Psychiatric: Denies anxiety or suicidal thoughts EXAM Physical Exam Const Vital Signs: 06/08/24 08:41 06/08/24 09:54 Temperature 98.4 F Temperature Source Oral Pulse Rate 118 H Pulse Rate [Lying] 96 Pulse Rate [Sitting (for 1 minute prior to obtaining)] 101 H Pulse Rate [Standing (for 1 minute prior to obtaining)] 104 H Respiratory Rate 18 Blood Pressure 131/93 H Blood Pressure [Lying] 112/71 Blood Pressure [Sitting (for 1 minute prior to obtaining)] 102/73 Blood Pressure Mean 105 Blood Pressure Mean [Lying] 84 Blood Pressure Mean [Sitting (for 1 minute prior to obtaining)] 82 Pulse Ox 98 Oxygen Delivery Method Room Air Positive well nourished and well developed General Appearance ED: well developed and NAD HEENT Reports moist mucous membranes normocephalic and atraumatic Eyes PERRL and EOMs intact bilaterally Neck full ROM and supple Resp normal respiratory effort and clear to auscultation bilaterally Cardio regular rate, regular rhythm and no murmurs Rate: tachycardic GI non-tender and non-distended Auscultation: normoactive bowel sounds Palpation: soft Back/Spine no CVA tenderness General Back: other FROM Extremity normal to inspection General Extremety ED: Negative for edema, pulses abnormal or tenderness General Extremity: Negative for edema or pulses abnormal Neuro oriented x3, CN's II-XII intact bilaterally and no sensory deficits noted Sensorium / Orientation: awake and alert Motor Exam: strength 5/5 throughout Skin no rashes or lesions noted and no wounds MDM MDM MDM Narrative Medical decision making narrative: Patient looks well clinically, her exam is very benign, except for resting tachycardia. Differential includes dehydration and anemia in context of diar mary and hematochezia related to her ulcerative colitis, as well as metabolic derangement. Orthostatics are negative, your BUN is very low, she was given IV fluids anyway while we were waiting for this workup. Her potassium is very low which is probably the etiology of her symptoms. She is a little anemic but higher than she was in January, and not anemic enough to be causing symptoms to this degree. Started potassium placement with both parenteral and oral methods here, I think she can be discharged home with prescription for potassium replacement given her age and stability and functional abilities at this stage. She is following up with her paperboard boxes estimator as above. Lab Data Attestation: I reviewed the patient's lab results. Labs: Laboratory Results - last 24 hr 06/08/24 09:43 WBC 10.9 RBC 4.17 L Hgb 11.5 L Hct 35.9 L MCV 86.1 MCH 27.6 MCHC 32.0 RDW Std Deviation TNP RDW Coeff of Neville TNP Plt Count 443 MPV 8.9 Immature Gran % (Auto) 0.500 Neut % (Auto) 74.5 H Lymph % (Auto) 19.4 [place] % (Auto) 5.1 Eos % (Auto) 0.2 Baso % (Auto) 0.3 Absolute Neuts (auto) 8.1 H Absolute Lymphs (auto) 2.11 Nucleated RBC % 0 Sodium 137 Potassium 2.9 L Chloride 97 L Carbon Dioxide 28.4 Anion Gap 12 BUN 2 L Creatinine 0.54 L Estim Creat Clear Calc 123.31 Est GFR (MDRD) Non-Af 133 BUN/Creatinine Ratio 4.0 L Glucose 88 Calcium 8.2 Blood Type O NEGATIVE Antibody Screen NEGATIVE Discharge Plan Triage Chief Complaint: Abd Pain ED Provider: Madelaine,Dustin Dx/Rx/DC Orders Clinical Impression: Acute hypokalemia, Acute diarrhea, Exacerbation of ulcerative colitis without complication Instructions: ED Hypokalemia Prescriptions: New potassium chloride 20 mEq tablet extended release 20 meq PO BID Qty: 30 0RF No Action sertraline 100 mg tablet 100 mg PO DAILY Primary Care Provider: Ruben Moyer Referrals: Ruben Moyer DO [Primary Care Provider] - 5-7 Days (And/or your paperboard boxes estimator) Print Language: Armenian Disposition Disposition: Home, Self Care
[2024-06-08 09:54] VITALS: BP 102/73; BP 112/71; PULSE 101; PULSE 104; PULSE 96
[2024-06-08] MEDS: 0.9% Normal Saline (1000mL) 1,000 ML 1000 ML IV (10:00)
[2024-06-08 10:01] LABS: Absolute Lymphocyte Count 2.11 X10^3/uL (0.83-4.51); Absolute Neutrophil Count 8.1 X10^3/uL (2.0-7.7); Basophil# 0.03 X10^3/uL; Basophil% 0.3 % (0-1); Eosinophil# 0.02 X10^3/uL; Eosinophils% 0.2 % (0-5); Hematocrit 35.9 % (37-47); Hemoglobin 11.5 g/dL (12.0-15.0); Lymphocyte # 2.11 X10^3/ul (0.83-4.51); Lymphocyte % 19.4 % (19-41); Mean Corpuscular Hgb 27.6 pg (27.0-32.0); Mean Corpuscular Volume 86.1 fL (81-99); Mean Platelet Vol. 8.9 fl (6.2-12.0); Monocyte# 0.55 X10^3/uL; Monocyte% 5.1 % (0-10); NRBC Flagged by Analyzer 0 % (0-5); Neutrophil # 8.12 X10^3/uL (2.7-7.7); Neutrophil % 74.5 % (47-70); POSITIVE MORPHOLOGY YES; Platelet Count 443 K/mm3 (150-450); Red Blood Count 4.17 M/mm3 (4.2-5.4); White Blood Count 10.9 K/mm3 (4.4-11.0)
[2024-06-08 10:06] LABS: Differential Indicated SCAN CRITERIA MET
[2024-06-08 10:18] LABS: Anion Gap 12 (5-15); BUN 2 mg/dL (4-19); Calcium,Total 8.2 mg/dL (7.6-11.0); Carbon Dioxide 28.4 mmol/L (21.0-32.0); Chloride 97 mmol/L (98-108); Creatinine, Serum 0.54 mg/dL (0.70-1.20); EST Glomerular Filtration Rate 133 (>60); Estimated Creatinine Clearance 123.31 ml/min (50-250); Glucose 88 mg/dL (70-99); Potassium 2.9 mmol/L (3.3-5.1); Sodium Level 137 mmol/L (133-145)
[2024-06-08 10:40] VITALS: BP 113/78
[2024-06-08 10:48] LABS: Anisocytosis 2+; Differential Comment SCANNED; Hypochromasia 1+
[2024-06-08] MEDS: Potassium Chloride Oral Tablet 20 MEQ 40 MEQ PO (10:49)
[2024-06-08 11:05] LABS: BUN/Creat Ratio 4.2 RATIO (10-20)
[2024-06-08] MEDS: Potassium Chloride 10mEq/100mL 10 MEQ/100 ML IV.SOLN. 100 MEQ IV BOLUS (11:13)
[2024-06-08 12:00] VITALS: PULSE 91; RESP 17
[2024-06-08 12:28] VITALS: BP 113/78; PULSE 91; RESP 17; TEMP 36.9; O2SAT 98
== END 2024-06-08 12:40 | disposition home or self-care (01) ==
PROVIDERS: Emergency Provider Emergency Medicine; PCP Family Medicine; Visit Provider Emergency Medicine
DX: E87.6 Hypokalemia (principal); K51.90 Ulcerative colitis, unspecified, without complications; Z79.899 Other long term (current) drug therapy
CPT/HCPCS: 80048; 85025; 86850; 86900; 86901; 96365; 99283; A4216

== ENCOUNTER 2024-10-11 13:46 | Inpatient (IN) | payer BC, MEDICAID, SELFPAY ==
[2024-10-11] VITALS (14 sets, daily range): BP systolic 101–130; BP diastolic 58–82; PULSE 90–194; RESP 12–24; TEMP 37–37.2; O2SAT 95–100; BMI 18.7; BMI 19.3
--- NOTE | 2024-10-11 14:46 | EKG12_ITS ---
Test Reason : Blood Pressure : */* mmHG Vent. Rate : 149 BPM Atrial Rate : 149 BPM P-R Int : 122 ms QRS Dur : 68 ms QT Int : 272 ms P-R-T Axes : 80 73 254 degrees QTcB Int : 428 ms Critical Test Result: High HR Sinus tachycardia ST & T wave abnormality, consider inferolateral ischemia Confirmed by MARICARMEN BANGURA, CURTIS ([id number]), supervising editor news reel LUANNE URBINA ([id number]) on 10/13/2024 7:37:04 AM Referred By: Confirmed By: CURTIS HERNADEZ MD
--- NOTE | 2024-10-11 14:47 | ED.VIS.GI ---
HPI HPI - GI History of Present Illness Chief Complaint: Palpitations Informant: patient and parent Narrative Narrative: 24-year-old female with history of ulcerative colitis, she is been having a flareup since April, for the past 6 months. She sees a lens coating technician with [facility] in [place], [place], and she currently is 2-3 weeks in on a prednisone taper none of which is helping and this is about the fifth course of prednisone she has been on in the past 6 months. She is having lots of daily tenesmus, watery diarrhea, occasional small amount of blood, some mucus, no melena. No fevers or chills. She feels generally weak but she is able to walk. She had a CT scan 1 week ago, about a week or so after some blood work that showed a white blood count in the 12 range, albumin and proteins that are low, slightly elevated alkaline phosphatase and other liver enzymes unremarkable, the CT showed pancolitis with pericolonic stranding but no sign of megacolon, perforation, or pneumatosis. Her doctor had planned on starting Entyvio, but she is waiting to be preauthorized for it and has not yet received a dose of any of that. In the meantime, she has been having more pain and diarrhea over the past 2 days, and now vomiting, and so she was referred to the ER. [facility] Medical History Laceration, obstetrical, first degree Care and examination of lactating mother (spontaneous vaginal delivery) 40 weeks gestation of Shortness of breath Palpitations Tachycardia Iron deficiency anemia Anxiety and depression Ulcerative colitis Home Medications ?Medication ?Instructions ?Recorded ?Last Taken ?Type sertraline 100 mg tablet 100 mg PO DAILY 01/18/24 Unknown History potassium chloride 20 mEq 20 meq PO BID #30 tabs 06/08/24 Unknown Rx tablet,extended release Allergy/AdvReac Type Severity Reaction Status Date / Time No Known Allergies Allergy Verified 06/08/24 08:40 Family History Mother Hypertension Gluten intolerance Father Hypertension Sister Heart murmur Grandmother Heart disease Diabetes Grandfather Hypertension Heart disease Cancer Grandmother Heart disease Hypertension Grandfather Myocardial infarction, Onset Age: 52 Surgical History History of esophagogastroduodenoscopy (EGD) History of colonoscopy Social History housing: house Smoking Status: Never smoker alcohol intake: never substance use type: does not use ROS ROS ED Constitutional Constitutional ED: Reports malaise and weakness; Denies chills or fever(s) Eyes Eyes: Denies change in vision or diplopia ENT ENT ED: Denies rhinorrhea or sore throat Cardiovascular Cardiovascular: Denies chest pain or palpitations Respiratory/Chest Respiratory/Chest: Denies cough or dyspnea Gastrointestinal Gastrointestinal: Reports abdominal pain, diarrhea, hematochezia, nausea, tenesmus and vomiting; Denies hematemesis or melena Genitourinary Genitourinary ED: Denies dysuria or hematuria Musculoskeletal Musculoskeletal: Denies back pain or neck pain Integumentary Denies abscess or rash Neurologic Neurologic: Denies headache(s), paresthesias or weakness Psychiatric Psychiatric: Denies anxiety or suicidal thoughts EXAM Physical Exam Const Vital Signs: 10/11/24 13:46 10/11/24 13:48 10/11/24 13:51 Temperature 99 F 99 F Temperature Source Oral Oral Pulse Rate 194 H 158 H Respiratory Rate 18 12 Respiratory Effort Blood Pressure 105/79 130/77 H Blood Pressure Mean 87 94 Pulse Ox 100 99 Oxygen Delivery Method Room Air 10/11/24 13:51 10/11/24 14:16 10/11/24 14:30 Temperature Temperature Source Pulse Rate 120 H 120 H Respiratory Rate 18 18 Respiratory Effort Normal Non-Labored Blood Pressure 116/78 Blood Pressure Mean 90 Pulse Ox 98 98 Oxygen Delivery Method 10/11/24 15:00 10/11/24 15:30 10/11/24 16:00 Temperature Temperature Source Pulse Rate 116 H 113 H 102 H Respiratory Rate 16 24 H 20 H Respiratory Effort Blood Pressure 120/76 119/79 116/80 Blood Pressure Mean 90 92 92 Pulse Ox 99 96 98 Oxygen Delivery Method Room Air Room Air Positive well nourished and well developed General Appearance ED: well developed and NAD HEENT Reports moist mucous membranes normocephalic and atraumatic Eyes PERRL and EOMs intact bilaterally Neck full ROM and supple Resp normal respiratory effort and clear to auscultation bilaterally Cardio regular rate, regular rhythm and no murmurs Rate: tachycardic GI non-distended GI Narrative: Mild diffuse nonfocal abdominal tenderness without guarding or rebound. No distention. Auscultation: normoactive bowel sounds Palpation: soft Back/Spine no CVA tenderness General Back: other FROM Extremity normal to inspection General Extremety ED: Negative for edema, pulses abnormal or tenderness General Extremity: Negative for edema or pulses abnormal Neuro oriented x3, CN's II-XII intact bilaterally and no sensory deficits noted Sensorium / Orientation: awake and alert Motor Exam: strength 5/5 throughout Psych mental status grossly normal and thought process normal Skin no rashes or lesions noted and no wounds MDM MDM MDM Narrative Medical decision making narrative: Patient very tachycardic I expect from being dehydrated, she already has evidence of malnourishment. She obviously is failing outpatient treatment, however this has been going on for 6 months. She is slated to see the lens coating technician Dr. Mary Woo at [facility] in [place] tomorrow. I spoke with her, she reviewed some records, seems the patient had C. difficile in March and was treated for that as well as some steroids and then or April and then was lost to follow-up physically until she eventually came to the office within the last month or 2, appeared emaciated and complained of a 42 pound weight loss and at that point they set her up with an appointment with Dr. Woo, trying to get an EGD and colonoscopy, obtain blood work and a CT scan which is noted below, and try to get the patient to get a scope which is not able to be obtained until November according to her, so she would recommend admission for IV hydration and IV steroids, inpatient EGD and at least flexible sigmoidoscopy, if not complete colonoscopy, and possibly starting her on Remicade. After giving her IV fluids here her heart rate is down to 113, consistent with tachycardia due to dehydration. She is a 17.5 white blood count, about 5 days ago was around 12, this could be due to inflammation, infection, or prednisone. We are sending diarrhea for enteric bacterial panel as well as C. difficile to rule that out, in the meantime I discussed with Dr. Love with GI and hospitalist for admission; for now before a consult since he is a patient who recommends Solu-Medrol 125 mg every 6 hours. History & Record Review Additional record(s) reviewed:: Prior labs (Labs from 09/23/[address] abdomen/pelvis from [facility] reviewed, provided by patient) Lab Data Attestation: I reviewed the patient's lab results. Labs: Laboratory Results - last 24 hr 10/11/24 13:58 WBC 17.5 H RBC 4.13 L Hgb 11.7 L Hct 36.3 L MCV 87.9 MCH 28.3 MCHC 32.2 RDW Std Deviation 45.4 H RDW Coeff of Neville 14.2 Plt Count 963 H* MPV 8.4 Immature Gran % (Auto) 0.700 Neut % (Auto) 77.1 H Lymph % (Auto) 15.2 L [place] % (Auto) 6.2 Eos % (Auto) 0.1 Baso % (Auto) 0.7 Absolute Neuts (auto) 13.5 H Absolute Lymphs (auto) 2.66 Nucleated RBC % 0 Sodium 136 Potassium 3.0 L Chloride 96 L Carbon Dioxide 28.1 Anion Gap 12 BUN 5 Creatinine 0.45 L Estim Creat Clear Calc 137.84 Est GFR (MDRD) Non-Af 139 BUN/Creatinine Ratio 10.5 Glucose 92 Calcium 8.2 Total Bilirubin 0.34 AST 16 ALT 7 Alkaline Phosphatase 211 H Total Protein 5.9 Albumin 2.4 L Globulin 3.4 Albumin/Globulin Ratio 0.7 L Lipase 5 L Management Discussion w/another healthcare provider: Hospitalist and Head Refrigerating Engineer (See above) Discharge Plan Dx/Rx/DC Orders Clinical Impression: Adult failure to thrive, Exacerbation of ulcerative colitis, Pancolitis Disposition Disposition: Acute Care Hospital [facility]
[2024-10-11 14:57] LABS: Hematocrit 36.3 % (37-47); Hemoglobin 11.7 g/dL (12.0-15.0); Immature Granulocytes Count 0.130 X10^3/uL (0.0-0.0); Mean Corp Hgb Conc 32.2 g/dL (32-36); Mean Corpuscular Volume 87.9 fL (81-99); Mean Platelet Vol. 8.4 fl (6.2-12.0); NRBC Flagged by Analyzer 0 % (0-5); POSITIVE COUNT YES; POSITIVE MORPHOLOGY YES; RBC Distribution Width CV 14.2 % (11.6-14.6); RBC Distribution Width SD 45.4 fl (35.1-43.9); Red Blood Count 4.13 M/mm3 (4.2-5.4); White Blood Count 17.5 K/mm3 (4.4-11.0)
[2024-10-11 15:02] LABS: Differential Indicated SCAN CRITERIA MET; Platelet Count 963 K/mm3 (150-450)
[2024-10-11] MEDS: 0.9% Normal Saline (1000mL) 1,000 ML 999 ML IV (15:04)
[2024-10-11 15:38] LABS: AST(SGOT) 16 U/L (<=31); Alanine Aminotransfer ALT/SGPT 7 U/L (<=34); Albumin, Serum 2.4 g/dL (3.5-5.0); Alkaline Phosphatase 211 U/L (35-104); Anion Gap 12 (5-15); BUN 5 mg/dL (4-19); BUN/Creat Ratio 10.5 RATIO (10-20); Calcium,Total 8.2 mg/dL (7.6-11.0); Carbon Dioxide 28.1 mmol/L (21.0-32.0); Chloride 96 mmol/L (98-108); Estimated Creatinine Clearance 137.84 ml/min (50-250); Globulin 3.4 g/dL (2.2-4.2); Glucose 92 mg/dL (70-99); Lipase 5 U/L (13-75); Potassium 3.0 mmol/L (3.3-5.1)
[2024-10-11 16:44] LABS: Reactive Lymphocyte 1+
--- NOTE | 2024-10-11 17:43 | PCM.HP.STD ---
[facility] - General General Date of Service: 10/11/24 Chief Complaint: Abdominal pain. Hematochezia. Weight loss. HPI Narrative CARIN BARNES, is a 24 F with ulcerative colitis who presents with ongoing abdominal pain, medicated, weight loss. She did diagnosed with ulcerative colitis and has been on several rounds of steroids without any relief. She has been seeing a patternmaker at [place] who is going to try to get her on a biologic but has not had insurance authorization yet. Despite all the steroids she has continued to get worse and lose weight. She has currently lost 40 pounds since March. In March she actually did have C. difficile colitis. [facility] Medical History Laceration, obstetrical, first degree Care and examination of lactating mother (spontaneous vaginal delivery) 40 weeks gestation of Shortness of breath Palpitations Tachycardia Iron deficiency anemia Anxiety and depression Ulcerative colitis Home Medications ?Medication ?Instructions ?Recorded ?Last Taken ?Type citalopram 10 mg tablet 10 mg PO DAILY 10/11/24 10/10/24 History omeprazole 20 mg capsule,delayed 20 mg PO DAILY 10/11/24 10/10/24 History release prednisone 5 mg tablet 15 mg PO .every day ulcerative 10/11/24 10/10/24 History collitis Allergy/AdvReac Type Severity Reaction Status Date / Time No Known Allergies Allergy Verified 06/08/24 08:40 Family History Mother Hypertension Gluten intolerance Father Hypertension Sister Heart murmur Grandmother Heart disease Diabetes Grandfather Hypertension Heart disease Cancer Grandmother Heart disease Hypertension Grandfather Myocardial infarction, Onset Age: 52 Surgical History History of esophagogastroduodenoscopy (EGD) History of colonoscopy Social History housing: house Smoking Status: Never smoker alcohol intake: never substance use type: does not use ROS ROS Narrative All review of systems were negative except as mentioned above in the history of present illness and the other review of systems. Vital Signs Vital Signs Vital Signs: 10/11/24 13:46 10/11/24 13:48 10/11/24 13:51 Temperature 37.2 C 37.2 C Temperature Source Oral Oral Pulse Rate 194 H 158 H Respiratory Rate 18 12 Respiratory Effort Blood Pressure 105/79 130/77 H Blood Pressure Mean 87 94 Pulse Ox 100 99 Oxygen Delivery Method Room Air 10/11/24 13:51 10/11/24 14:16 10/11/24 14:30 Temperature Temperature Source Pulse Rate 120 H 120 H Respiratory Rate 18 18 Respiratory Effort Normal Non-Labored Blood Pressure 116/78 Blood Pressure Mean 90 Pulse Ox 98 98 Oxygen Delivery Method 10/11/24 15:00 10/11/24 15:30 10/11/24 16:00 Temperature Temperature Source Pulse Rate 116 H 113 H 102 H Respiratory Rate 16 24 H 20 H Respiratory Effort Blood Pressure 120/76 119/79 116/80 Blood Pressure Mean 90 92 92 Pulse Ox 99 96 98 Oxygen Delivery Method Room Air Room Air 10/11/24 16:30 10/11/24 16:59 10/11/24 17:00 Temperature 37.0 C Temperature Source Pulse Rate 100 103 H 105 H Respiratory Rate 18 18 18 Respiratory Effort Blood Pressure 121/81 H 120/74 120/82 H Blood Pressure Mean 94 89 94 Pulse Ox 99 98 99 Oxygen Delivery Method Room Air Room Air 10/11/24 17:30 Temperature Temperature Source Pulse Rate 108 H Respiratory Rate 18 Respiratory Effort Blood Pressure 120/76 Blood Pressure Mean 90 Pulse Ox 100 Oxygen Delivery Method Room Air Weight Weight: 44.906 kg Body Mass Index (BMI) 18.7 Physical Exam Const alert Constitutional Narrative: Lying in bed. Pale. Afebrile. Nontoxic. HEENT normocephalic and head/scalp atraumatic Resp normal respiratory effort, no retractions, no use of accessory muscles and clear to auscultation bilaterally Cardio regular rate, regular rhythm, S1 normal heart sound and S2 normal heart sound GI normal to inspection, nondistended, normoactive bowel sounds and soft to palpation GI Narrative: Tender but not distended. Extremity normal to inspection and no clubbing, cyanosis or edema Neuro Sensorium / Orientation: awake and alert Psych Psych Narrative: Flat affect Results Lab / Micro Data 10/11/24 13:58 10/11/24 13:58 Labs: Laboratory Results - last 24 hr 10/11/24 13:58: WBC 17.5 H, RBC 4.13 L, Hgb 11.7 L, Hct 36.3 L, MCV 87.9, MCH 28.3, MCHC 32.2, RDW Std Deviation 45.4 H, RDW Coeff of Neville 14.2, Plt Count 963 H*, MPV 8.4, Immature Gran % (Auto) 0.700, Neut % (Auto) 77.1 H, Lymph % (Auto) 15.2 L, [place] % (Auto) 6.2, Eos % (Auto) 0.1, Baso % (Auto) 0.7, Absolute Neuts (auto) 13.5 H, Absolute Lymphs (auto) 2.66, Nucleated RBC % 0, Differential Comment , Diff Path Review May foll, Atypical Lymphocytes RARE, Reactive Lymphocytes 1+, Platelet Estimate [employer] INC, Sodium 136, Potassium 3.0 L, Chloride 96 L, Carbon Dioxide 28.1, Anion Gap 12, BUN 5, Creatinine 0.45 L, Estim Creat Clear Calc 137.84, Est GFR (MDRD) Non-Af 139, BUN/Creatinine Ratio 10.5, Glucose 92, Calcium 8.2, Total Bilirubin 0.34, AST 16, ALT 7, Alkaline Phosphatase 211 H, Total Protein 5.9, Albumin 2.4 L, Globulin 3.4, Albumin/Globulin Ratio 0.7 L, Lipase 5 L 10/11/24 15:40: Lactic Acid 1.1 Assessment & Plan Assessment/Plan (1) Exacerbation of ulcerative colitis: PLAN: Through [facility] patient had a CAT scan performed on the that showed findings consistent with active pancolitis, including diffuse colonic wall thickening, pericolonic stranding and prominent vasa recta. No pneumatosis, free air or megacolon. She did have an ultrasound on the but results have not been released. The emergency room doctor spoke with gastroenterology over [facility] who recommended endoscopy as well as high-dose steroids. They are trying to get biologic agents for the patient but has not been approved yet by insurance company. Family requesting to see if we can get approval for those medications while she is here. C. difficile ordered. Patient does have a history of C. difficile back in March. Though this seems more likely consistent with UC flare will need to also rule out an active C. difficile. She did have C. difficile performed through the [facility] [place] on the but those results are not available through Dr. Johnson at this time. Patient did receive 125 mg of methadone prednisolone in the emergency room. Will continue with 40 IV 3 times daily. Consult GI for evaluation for endoscopy. Dr. Love was contacted by the emergency room physician. If her condition acutely worsens, then would recommend repeating CAT scan. (2) Adult failure to thrive: PLAN: Patient has lost 40 pounds since April. Due to the flareup of her UC flare. (3) Hypokalemia due to excessive gastrointestinal loss of potassium: PLAN: Secondary to GI losses. Did replace in the emergency room. Will continue to monitor follow-up magnesium. . PLAN: Plan VTE prophylaxis with SCDs. Discussed with the patient's family at bedside. Charges/Coding Visit Charges Inpatient E&M: 87348 Init Hosp L3
[2024-10-11] MEDS: Potassium Chloride 10mEq/100mL 10 MEQ/100 ML IV.SOLN. 100 MEQ IV BOLUS (17:55)
--- NOTE | 2024-10-11 18:31 | EX.PCM.CON.G ---
HPI Consult Data Date of Consult: 10/11/24 HPI Narrative Reason for Consultation: Ulcerative colitis HPI Narrative: CARIN BARNES, is 84 female with history of ulcerative colitis, she is been having a flareup since April, for the past 6 months. She sees a service advocate contact with [facility] in [place], [place], and she currently is 2-3 weeks in on a prednisone taper none of which is helping and this is about the fifth course of prednisone she has been on in the past 6 months. She is having lots of daily tenesmus, watery diarrhea, occasional small amount of blood, some mucus, no melena. No fevers or chills. She feels generally weak but she is able to walk. She had a CT scan 1 week ago, about a week or so after some blood work that showed a white blood count in the 12 range, albumin and proteins that are low, slightly elevated alkaline phosphatase and other liver enzymes unremarkable, the CT showed pancolitis with pericolonic stranding but no sign of megacolon, perforation, or pneumatosis. Her doctor had planned on starting Entyvio, but she is waiting to be preauthorized for it and has not yet received a dose of any of that. In the meantime, she has been having more pain and diarrhea over the past 2 days, and now vomiting, and so she was referred to the ER. [facility] Medical History Laceration, obstetrical, first degree Care and examination of lactating mother (spontaneous vaginal delivery) 40 weeks gestation of Shortness of breath Palpitations Tachycardia Iron deficiency anemia Anxiety and depression Ulcerative colitis Home Medications ?Medication ?Instructions ?Recorded ?Last Taken ?Type citalopram 10 mg tablet 10 mg PO DAILY 10/11/24 10/10/24 History omeprazole 20 mg capsule,delayed 20 mg PO DAILY 10/11/24 10/10/24 History release prednisone 5 mg tablet 15 mg PO .every day ulcerative 10/11/24 10/10/24 History collitis Allergy/AdvReac Type Severity Reaction Status Date / Time No Known Allergies Allergy Verified 06/08/24 08:40 Family History Mother Hypertension Gluten intolerance Father Hypertension Sister Heart murmur Grandmother Heart disease Diabetes Grandfather Hypertension Heart disease Cancer Grandmother Heart disease Hypertension Grandfather Myocardial infarction, Onset Age: 52 Surgical History History of esophagogastroduodenoscopy (EGD) History of colonoscopy Social History housing: house Smoking Status: Never smoker alcohol intake: never substance use type: does not use ROS Constitutional Constitutional: Reports fatigue, poor appetite and weight loss; Denies fever(s) or weight gain Gastrointestinal Gastrointestinal: Reports change in bowel habits, change in stool character, fecal incontinence, hematochezia and tenesmus; Denies belching, chewing difficulty, coffee ground emesis, constipation, cramping, diarrhea, dyspepsia, dysphagia, heartburn, hematemesis, hemorrhoids, loose stools, melena, odynophagia or vomiting Physical Exam Const alert, oriented x3, no apparent distress and healthy appearing General Appearance: cooperative GI normal to inspection, nondistended, normoactive bowel sounds, soft to palpation, non-tender and non-distended Percussion: normal to percussion Rectal Exam: deferred Lab / Micro Data 10/11/24 13:58 10/11/24 13:58 Labs: Laboratory Results - last 24 hr 10/11/24 13:58: WBC 17.5 H, RBC 4.13 L, Hgb 11.7 L, Hct 36.3 L, MCV 87.9, MCH 28.3, MCHC 32.2, RDW Std Deviation 45.4 H, RDW Coeff of Neville 14.2, Plt Count 963 H*, MPV 8.4, Immature Gran % (Auto) 0.700, Neut % (Auto) 77.1 H, Lymph % (Auto) 15.2 L, Stanley % (Auto) 6.2, Eos % (Auto) 0.1, Baso % (Auto) 0.7, Absolute Neuts (auto) 13.5 H, Absolute Lymphs (auto) 2.66, Nucleated RBC % 0, Differential Comment , Diff Path Review May foll, Atypical Lymphocytes RARE, Reactive Lymphocytes 1+, Platelet Estimate MKD INC, Sodium 136, Potassium 3.0 L, Chloride 96 L, Carbon Dioxide 28.1, Anion Gap 12, BUN 5, Creatinine 0.45 L, Estim Creat Clear Calc 137.84, Est GFR (MDRD) Non-Af 139, BUN/Creatinine Ratio 10.5, Glucose 92, Calcium 8.2, Total Bilirubin 0.34, AST 16, ALT 7, Alkaline Phosphatase 211 H, Total Protein 5.9, Albumin 2.4 L, Globulin 3.4, Albumin/Globulin Ratio 0.7 L, Lipase 5 L 10/11/24 15:40: Lactic Acid 1.1 Assessment & Plan Assessment/Plan (1) Exacerbation of ulcerative colitis: (2) Adult failure to thrive: (3) Hypokalemia due to excessive gastrointestinal loss of potassium: PLAN: . PLAN: Plan ?24-year-old with a history of macedo-ulcerative colitis who has been experiencing severe weight loss. She has a history of C. difficile colitis earlier this year. The patient currently on steroids for UC management. She presented to the ER with complaints related to their UC flare and associated symptoms, specifically noting a significant and concerning degree of weight loss. She does not know she is up-to-date with her vaccinations. She does not know if she has been checked for STDs. She is a non-smoker. She never had any surgeries. The patient's general appearance suggests significant weight loss. Further objective findings would include: Weight:?99 pounds with a BMI of 18.7 Vital Signs:?Afebrile with tachycardia. Blood pressure was initially low. This is likely secondary to dehydration. Physical Exam:?Evidence of dehydration (e.g., dry mucous membranes, decreased skin turgor) should be assessed. Abdominal examination would reveal tenderness, distention, or other signs of inflammation. Laboratory Tests:?Complete blood count mild anemia, increased white blood cell count 17,000, CAT scan performed on the that showed findings consistent with active pancolitis, including diffuse colonic wall thickening, pericolonic stranding and prominent vasa recta. No pneumatosis, free air or megacolon. She did have an ultrasound on the but results have not been released. The patient is experiencing a severe ulcerative colitis flare-up, indicated by significant weight loss, likely accompanied by symptoms like diarrhea, abdominal pain, and potential dehydration. The use of steroids alone suggests inadequate control of the disease, and the severe weight loss could point towards malnutrition and malabsorption related to the inflammation. Possible complications associated with severe UC include toxic megacolon, perforation, and severe bleeding, which must be considered in this acute setting. Her CT scan does not show any signs of megacolon at this time. She should be checked for cytomegalovirus, C. difficile colitis. The immediate plan is to stabilize the patient and address the acute UC flare and weight loss. Urgent hospitalization for close monitoring and treatment is necessary. Intravenous fluids:?Correction of dehydration and electrolyte imbalances is critical. Intravenous steroids:?High-dose IV steroids are often used to induce remission in acute severe . Nutritional support:?Dietary consultation along with Ensure clear supplementation. Parenteral nutrition (PN) should be considered to address severe weight loss and malnutrition, particularly if oral or enteral nutrition is not tolerated or feasible. Given that the patient is already on steroids and experiencing a severe flare, additional or alternative therapies may be warranted if there is no improvement with IV steroids. These could include immunomodulators, biologics, or even surgical intervention. It may be hard to get her TNF blockers in the hospital Check QuantiFERON gold, ESR, CRP, MARCO plus serum protein electrophoresis, stool calprotectin, chronic hepatitis B, BASIA, ANCA Avoid:?Antidiarrheal agents (e.g., loperamide) and NSAIDs, which can worsen symptoms or increase risks. Rescue Therapy:?If no significant response to IV steroids after 3 days, consider rescue therapy with infliximab or cyclosporine. MRCP to look for signs of primary sclerosing cholangitis in the setting of increased alkaline phosphatase and 40 pound weight loss
[2024-10-11] MEDS: 0.9% Normal Saline (1000mL) 1,000 ML 125 ML IV (19:50)
[2024-10-11] MEDS: 0.9% Saline Lock 10 ML Syringe IV (21:04)
[2024-10-11 21:42] LABS: Ferritin 36 ng/mL (22-378); HIV Nonreactive (Nonreactive); Vitamin B12 1128 pg/mL (180-914)
[2024-10-11 21:57] LABS: CRP 50.90 mg/L (0.0-3.0)
[2024-10-11 22:02] LABS: Iron 24 ug/dL (50-170); Iron Binding Capacity,Unsat 143 ug/dL (228-428); LDH 161 U/L (84-246)
[2024-10-11 22:17] LABS: Iron Binding Capacity,Total 167 ug/dL (250-450)
--- OUTSIDE RECORDS SUMMARY | 2024-10-11 22:36 | XMS RPT_ITS | CCD ---
Author Organization [facility] Care Team Providers Care White Mixing Operator Name Role Phone Elizabeth BANGURA, Britney Primary Care Provider Dr. Britney Kay Primary Care Provider Dr. Donavon Odell Attending Provider Britney Kay MD Primary Care Provider Britney Kay MD Primary Care Provider Unavailable Primary Care Provider [facility]ilelena [facility] er Dr. Ruben Moyer DO Primary Care Provider Dr. Dustin Burkett MD Emergency Provider DESIRE MOYER Attending Jens MOYER [facility] Primary Care Jens [facility] Attending Jens MOYER [facility] Primary [facility] Roseannevai GIANA Delcid Referring Unavailable JO[facility] [place] [facility] Attending Jens bailey SELF Referring Unavailable [facility] DESIRE Cancino Attending Jens bailey SELF Referring [facility]available [facility] Primary Care Dustin Renteria Attending Unavailable Britney Kay Primary Care Unavailable Ruben Moyer Primary [facility] Unavailable Dustin Burkett Attending Unavailable Pk BANGURA, Felipa Primary Care Provider FELIPA WHITTINGTON Primary Care Unavailable FELIPA WHITTINGTON Attending Unavailable [facility] Primary [facility] KAROLINA Rand Referring Unavailable [facility] Primary Care KAROLINA Rand Attending Unavailable EVELYNE EVANGELISTA Referring Unavailable [facility] Primary Care Unavai lable JOÃO, [facility] Primary Care Unavai lable JOÃO, [facility] Referring Unavai lable EVELYNE EVANGELISTA Attending Unavailable JOÃO, [facility] Primary Care Unavai lable JOÃO, [facility] Referring Unavai lable EVANGELISTA, EVELYNE Referring Unavailable JOÃO, [facility] UnaCHERELLE Raymond Attending Unavailable [facility], [facility] Jens WHITTINGTON, [facility] Care Unavailable KAROLINA YU Referring Unavailable JOÃO, [facility] Unavai lable JEAN CARLOS, EVELYNE Referring Unavailable JOÃO, [facility] Unavai lable JOÃO, [facility] Jens [facility] Referring Unavailable [facility], [facility] Unavai lable JOÃO, [facility] Referring Unavai labSONJA Carrion Attending [facility] Jens Burkett MD, Dr. Chan Emergency Provider PK [facility] Provider Unavailabl e Dr. Edy Martinez DO Admit Provider Dr. Edy Martinez DO Attending Provider Dr. Edy Martinez DO Other Provider [phone] Medications Current Medications Medication Drug Class(es) Dates Sig (Normalized) Sig (Original) calcium carbonate 500 mg chewable tablet (2 sources) Start: 10-08-2024 End: 10-08-2025 take 1 tablet by mouth once daily calcium carbonate (CALCIUM ANTACID) 500 mg chew Take 1 tablet by mouth once daily. 90 tablet 3 10/08/2024 10/08/2025 Active cholecalciferol 0.025 mg oral capsule (5 sources) Vitamin D Start: 10-08-2024 End: 10-08-2025 take 1 capsule by mouth once daily Cholecalciferol, Vitamin D3, (VITAMIN D) 25 mcg (1,000 unit) cap Take 1 capsule by mouth once daily. 90 capsule 3 10/08/2024 10/08/2025 Active Start: 02-07-2021 End: 03-09-2022 take 1 capsule by mouth two times weekly, then take 1 capsule by mouth every week cholecalciferol, Vitamin D3, (VITAMIN D3) 1,250 mcg (50,000 unit) cap capsule Take 1 capsule by mouth two times a week for 30 days, THEN 1 capsule one time a week. (ONE CAPSULE) FOR VITAMIN D DEFICIENCY. 59 capsule 0 02/07/2021 06/26/2021 Discontinued (Course of therapy completed) Comment on above: Take 1 capsule by mo [facility] two times a week for 30 days, THEN 1 capsule one time a week. (ONE CAPSULE) FOR VITAMIN D DEFICIENCY. citalopram 10 mg oral tablet (8 sources) Serotonin Reuptake Inhibitor Start: End: 6 take 1 tablet by mouth once daily citalopram hydrobromide (CELEXA) 10 mg tablet Indications: Depression, unspecified depression type Take 1 tablet by mouth once daily. 90 tablet 3 10/06/2024 10/06/2025 Active enteric contrast (will be provided with radiology test) (2 sources) Start: End: enteric contrast (will be provided with radiology test) Indications: Ulcerative pancolitis with rectal bleeding (HCC) , Anemia, unspecified type , Unintentional weight loss For CT ABD/PEL W IVCON Routine order Administer, As Directed One Time Only, via Oral, Rectal, both Oral and Rectal, Enteric Tube, Stoma or Indwelling Catheter, Enteric Contrast as designated per enteric contrast guidelines 1 each 09/17/2024 09/18/2024 Active ferrous sulfate 325 mg oral tablet (20 sources) Start: 5 End: 6 take 1 tablet by mouth once daily ferrous sulfate (FEOSOL) 325 mg (65 mg iron) tablet Take 1 tablet by mouth once daily. 90 tablet 3 04/05/2024 04/05/2025 Active Start: 12-16-2021 End: 06-08-2024 take 1 tablet by mouth once daily Ferrous Sulfate 325 mg (65 mg iron) tablet Discontinued 325 mg PO DAILY October 25, 2022 11:08am June 08, 2024 8:51am PT STATES SHE TAKES IT WHENEVER SHE FEELS LIGHTHEADED-USUALLY Start: 06-22-2021 End: 04-29-2023 take 1 tablet by mouth once daily at breakfast ferrous sulfate 325 mg (65 mg iron) tablet Take 1 tablet by mouth daily with breakfast. 90 tablet 3 12/14/2021 04/29/2023 Discontinued Comment on above: Take 1 tablet by alejandra th daily with breakfast. folic acid 1 mg oral tablet (20 sources) Start: 025 End: 026 take 1 tablet by mouth once daily folic acid 1 mg tablet Take 1 tablet by mouth once daily. 90 tablet 3 04/05/2024 04/05/2025 Active hydrocortisone 10 mg/ml topical cream (5 sources) Corticosteroid Start: 023 End: 023 hydrocortisone 1 % cream Apply to affected area twice daily for 7 days. 15 g 0 08/27/2022 09/03/2022 Active Start: 08-27-2022 End: 08-27-2022 hydrocortisone 0.5 % cream A pply to affected area twice daily for 7 days. 28.4 g 0 08/27/2022 08/27/2022 Discontinued (Course of therapy completed) Comment on above: Apply to affected ar ea twice daily for 7 days. iv contrast (will be provided with radiology test) (2 sources) Start: End: iv contrast (will be provided with radiology test) Indications: Ulcerative pancolitis with rectal bleeding (HCC) , Anemia, unspecified type , Unintentional weight loss CT ABD/PEL -Inject, intravenously, once for 1 dose.No IV access, insert saline lock prior to the beginning of sedation, infusion, injection of imaging exam. Discontinue saline lock post exam. If Pt. has a central line or IVAD, may access for administration according to line specific nursing protocol. Once exam is complete flush line and de-access according to line specific nursing protocol in theCT contrast administration guidelines link. 1 each 09/17/2024 09/18/2024 Active omeprazole 20 mg delayed release oral capsule (13 sources) Proton Pump Inhibitor Start: 5 End: take 1 capsule by mouth once daily omeprazole (PRILOSEC) 20 mg capsule Indications: Nausea and vomiting, unspecified vomiting type Take 1 capsule by mouth once daily. 30 capsule 2 09/17/2024 12/16/2024 Active predniSONE 5 mg oral tablet (20 sources) Start: take 3 tablets by mouth once daily Prednisone 5 mg tablet Active 15 mg PO .every day October 11, 2024 12:00am ulcerative collitis Start: 09-17-2024 End: 10-29-2024 take 4 tablets by mouth once daily, then take 3 tablets by mouth once daily, then take 2 tablets by mouth once daily, then take 1 tablet by mouth once daily predniSONE (DELTASONE) 5 mg tablet Indications: Ulcerative pancolitis with rectal bleeding (HCC) Take 4 tablets by mouth once daily for 14 days, THEN 3 tablets once daily for 14 days, THEN 2 tablets once daily for 7 days, THEN 1 tablet once daily for 7 days. 119 tablet 09/17/2024 10/29/2024 Active Start: 05-30-2022 End: 06-27-2022 take 4 tablets by mouth once daily, then take 3 tablets by mouth once daily, then take 2 tablets by mouth once daily, then take 1 tablet by mouth once daily predniSONE (DELTASONE) 10 mg tablet Indications: Ulcerative pancolitis with rectal bleeding (HCC) Take 4 tablets by mouth once daily for 7 days, THEN 3 tablets once daily for 7 days, THEN 2 tablets once daily for 7 days, THEN 1 tablet once daily for 7 days. 70 tablet 0 05/30/2022 06/27/2022 Active Start: 12-18-2021 End: 01-15-2022 take 4 tablets by mouth once daily, then take 3 tablets by mouth once daily, then take 2 tablets by mouth once daily, then take 1 tablet by mouth once daily predniSONE (DELTASONE) 10 mg tablet Indications: Ulcerative pancolitis with rectal bleeding (HCC) Take 4 tablets by mouth once daily for 7 days, THEN 3 tablets once daily for 7 days, THEN 2 tablets once daily for 7 days, THEN 1 tablet once daily for 7 days. 70 tablet 0 12/18/2021 01/15/2022 Active Start: 12-16-2021 End: 10-14-2022 take 1 tablet by mouth once daily Prednisone 50 mg tablet Discontinued 50 mg PO DAILY December 16, 2021 12:00am October 14, 2022 11:28am Start: 09-26-2021 End: 10-24-2021 take 4 tablets by mouth once daily, then take 3 tablets by mouth once daily, then take 2 tablets by mouth once daily, then take 1 tablet by mouth once daily predniSONE (DELTASONE) 10 mg tablet Indications: Ulcerative pancolitis with rectal bleeding (HCC) Take 4 tablets by mouth once daily for 7 days, THEN 3 tablets once daily for 7 days, THEN 2 tablets once daily for 7 days, THEN 1 tablet once daily for 7 days. 70 tablet 0 09/26/2021 10/24/2021 Active Comment on above: Take 4 tablets by [facility] once daily for 7 days, THEN 3 tablets once daily for 7 days, THEN 2 tablets once daily for 7 days, THEN 1 tablet once daily for 7 days. Completed/Discontinued Medications Medication Drug Class(es) Dates Sig (Normalized) Sig (Original) acetaminophen 325 mg / oxyCODONE hydrochloride 5 mg oral tablet (4 sources) Opioid Agonist Start: 01-18-2024 End: 06-08-2024 Oxycodone-Acetaminop hen 5-325 mg tablet Discontinued 1 {tbl} PO EVERY 6 HOURS NEEDED as needed for Pain 12 3 0 January 19, 2024 June 08, 2024 8:51am Calculus of ureter Calculus of ureter 0.4 ml adalimumab 100 mg/ml auto-injector (20 sources) Tumor Necrosis Factor Jimi Start: 10-01-2021 End: 10-11-2023 Adalimumab (Humira(Cf) Pen) 40 mg/0.4 mL pen injector kit Discontinued 0 .ROUTE .COMPLEX December 16, 2021 12:00am October 14, 2022 11:28am 40 mg subcutaneously QOWEEK ON FRIDAYS Start: 10-01-2021 adalimumab 80 mg/0.8 mL subcutaneous pen kit (HUMIRA CF) Inject 160 mg subcutaneously on day 1, then inject 80 mg subcutaneously 2 weeks later. 1 Kit 0 10/01/2021 Active Comment on above: Inject 160 mg subcut aneously on day 1, then inject 80 mg subcutaneously 2 weeks later. Inject 40 mg subcuta neously every 2 weeks. betamethasone 0.5 mg/ml / clotrimazole 10 mg/ml topical cream (1 source) Azole Antifungal, Corticosteroid Start: 023 End: 023 clotrimazole-betamet hasone (LOTRISONE) cream Apply 1 application to affected area twice daily for 7 days. 15 g 0 12/03/2022 12/10/2022 Comment on above: Apply 1 application to affected area twice daily for 7 days. calcium carbonate 1250 mg / cholecalciferol 200 unt oral tablet (2 sources) Vitamin D Start: End: take 1 tablet by mouth twice daily [id number]-[id number] tamin D3 (CALCIUM 500+D) 500 mg-5 mcg (200 unit) per tablet Take 1 tablet by mouth two times a day. 60 tablet 11 10/07/2024 10/08/2024 Discontinued dicyclomine hydrochloride 10 mg oral capsule (20 sources) Anticholinergic Start: 025 End: take 1 capsule by mouth three times daily as needed dicyclomine (BENTYL) 10 mg capsule Indications: Bilateral lower abdominal cramping Take 1 capsule by mouth three times a day as needed. 90 capsule 1 03/31/2024 06/22/2024 Discontinued ergocalciferol 1.25 mg oral capsule (20 sources) Provitamin D2 Compound Start: 022 End: 023 Ergocalciferol (Vitamin D2) 1,250 mcg (50,000 unit) capsule Discontinued 23048 U PO EVERY WEEK December 16, 2021 12:00am October 25, 2022 11:08am Start: 03-08-2021 End: 10-25-2022 take 11219 [IU] by mouth every week Ergocalciferol (Vitamin D2) Discontinued 85545 UNIT PO EVERY WEEK December 15, 2021 11:00pm October 25, 2022 10:08am Comment on above: TAKE 1 CAPSULE BY [facility] ONE TIME A WEEK FOR 8 DOSES. Take 1 capsule by [facility] one time a week. Take by mouth. 10 ml iron sucrose 20 mg/ml injection (3 sources) Parenteral Iron Replacement Start: 05-11-2024 End: 05-11-2024 200 mg, INTRAVENOUS, ONCE, 1 dose, On Fri05/11/24 at 1530, Please conduct a 30 minute post dose observation. Start: 04-23-2024 End: 04-23-2024 200 mg, INTRAVENOUS, ONCE, 1 dose, On Fri04/23/24 at 1300, Please conduct a 30 minute post dose observation. Start: 04-21-2024 End: 04-21-2024 200 mg, INTRAVENOUS, ONCE, 1 dose, On Fri04/21/24 at 1530, Please conduct a 30 minute post dose observation. levonorgestrel 0.170408 mg/hr intrauterine system (20 sources) Progestin, Progestin-containing Intrauterine Device Start: 05-27-2023 End: 05-27-2023 levonorgestrel 21 mcg/24 hours (8 yrs) 52 mg 1 Each intrauterine device (MIRENA) Start: 05-27-2023 End: 05-25-2031 levonorgestrel (MIRENA) 21 m cg/24 hours (8 yrs) 52 mg IUD 1 Each by INTRAUTERINE route as directed. 1 Each 05/27/2023 05/25/2031 Active Comment on above: 1 Each by INTRAUTERI NE route as directed. mesalamine 1200 mg delayed release oral tablet (11 sources) Aminosalicylate Start: End: take 4 tablets by mouth once daily at mealtime Mesalamine (LIALDA) 1.2 gram EC tablet Take 4 tablets by mouth once daily. Take with food. Do not cut tablet. 120 tablet 3 08/22/2021 Active Comment on above: TAKE 4 TABLETS BY MO UT ONCE DAILY. TAKE WITH FOOD. DO NOT CUT TABLET. metroNIDAZOLE 500 mg oral tablet (13 sources) Nitroimidazole Antimicrobial Start: 023 End: take 1 tablet by mouth twice daily metroNIDAZOLE (FLAGYL) 500 mg tablet Indications: Bacterial vaginitis Take 1 tablet by mouth two times a day for 7 days. 14 tablet 0 12/27/2022 01/03/2023 Start: 12-04-2022 End: 12-19-2022 take 1 tablet by mouth twice daily metroNIDAZOLE (FLAGYL) 500 mg tablet Take 1 tablet by mouth two times a day for 7 days. 14 tablet 0 12/12/2022 12/19/2022 Active Start: 08-29-2022 End: 09-05-2022 take 1 tablet by mouth twice daily metroNIDAZOLE (FLAGYL) 500 mg tablet Take 1 tablet by mouth twice daily for 7 days. 14 tablet 0 08/29/2022 09/05/2022 Active Comment on above: Take 1 tablet by [facility] twice daily for 7 days. Take 1 tablet by [facility] two times a day for 7 days. nystatin [id number] unt/ml topical cream (1 source) Polyene Antifungal Start: 12-03-19 nystatin (MYCOSTATIN) cream Apply to affected area twice daily. 30 g 0 12/02/2022 Active Comment on above: Apply to affected ar ea twice daily. ondansetron 4 mg disintegrating oral tablet (20 sources) Serotonin-3 Receptor Antagonist Start: 05-18-19 End: 10-07-19 take 1 tablet by mouth every eight hours as needed for nausea ondansetron orally disintegrating (ZOFRAN ODT) 4 mg disintegrating tablet Indications: Nausea and vomiting, unspecified vomiting type Take 1 tablet by mouth every 8 hours as needed for nausea/vomiting. 60 tablet 05/17/2024 10/06/2024 Discontinued Start: 03-18-2023 End: 03-19-2023 Ondansetron Hcl 4 mg tablet Discontinued mg March 18, 2023 1:00am March 19, 2023 9:22am Start: 03-18-2023 End: 03-19-2023 Ondansetron Hcl Discontinued MG March 18, 2023 12:00am March 19, 2023 8:22am Start: 08-06-2022 End: 02-24-2023 take 1 tablet by mouth every eight hours as needed Ondansetron Hcl 4 mg tablet Discontinued 4 mg PO Q8H as needed October 25, 2022 12:00am February 24, 2023 5:42pm Comment on above: Take 1 tablet by [facility] every 8 hours as needed for nausea/vomiting. potassium chloride 20 meq extended release oral tablet (14 sources) Start: 06-09-19 End: 10-07-19 take 1 tablet by mouth every twelve hours potassium chloride 20 mEq TbER Take 1 tablet by mouth every 12 hours. 06/08/2024 10/06/2024 Discontinued Start: 01-18-2024 End: 10-11-2024 take 1 tablet by mouth twice daily Potassium Chloride 20 mEq tablet extended release Discontinued 20 meq PO TWICE A DAY 30 0 June 08, 2024 12:00am [place] 4th, 2025 4:59pm [id number] Ac id ( Multi) 27-800 mg-mcg tablet (4 sources) Start: 10-25-2022 End: 01-18-2024 [id number] Ac id ( Multi) 27-800 mg-mcg tablet Discontinued 1 {tbl} PO DAILY October 25, 2022 12:00am January 18, 2024 1:49am Start: 10-25-2022 take 1 tablet by alejandra th once daily [id number] Acid ( Multi) 27-800 mg-mcg tablet Active 1 TABLET PO DAILY October 24, 2022 11:00pm prental multivitamin 27 mg iron- 800 mcg tablet (20 sources) End: 09-15-2023 take 1 tablet by mouth once daily prental multivitamin 27 mg iron- 800 mcg tablet Take 1 tablet by mouth once daily. 0 09/15/2023 Discontinued (Course of therapy completed) take 1 tablet by mouth once brian y prental multivitamin 27 mg iron- 800 mcg tablet Take 1 tablet by mouth once daily. 0 Active Comment on above: Take 1 tablet by alejandra th once daily. sertraline 100 mg oral tablet (20 sources) Serotonin Reuptake Inhibitor Start: 12-12-2023 End: 10-11-2024 take 1 tablet by mouth once daily Sertraline 100 mg tablet Discontinued 100 mg PO DAILY January 18, 2024 1:00am October 11, 2024 4:58pm Start: 04-29-2023 End: 12-12-2023 take 1 tablet by mouth once daily sertraline (ZOLOFT) 50 mg tablet Take 1 tablet by mouth once daily. 30 tablet 11 04/29/2023 12/12/2023 Discontinued Start: 04-08-2023 End: 04-29-2023 sertraline (ZOLOFT) 25 mg ta blet TAKE 1 TAB DAILY FOR 1 WEEK. THEN INCREASE TO 2 TABS DAILY ONGOING. 60 tablet 1 04/08/2023 04/29/2023 Discontinued Start: 12-21-2021 End: 02-28-2022 take 1 tablet by mouth once daily sertraline (ZOLOFT) 50 mg tablet Take 1 tablet by mouth once daily. 30 tablet 5 12/21/2021 02/28/2022 Discontinued Comment on above: Take 1 tablet by alejandra th once daily. TAKE 1 TAB DAILY FOR 1 WEEK. THEN INCREASE TO 2 TABS DAILY ONGOING. 1000 ml sodium chloride 9 mg/ml injection (1 source) Start: 04-21-19 End: 04-21-19 1,000 mL/hr (rounded to 999 mL/hr), INTRAVENOUS, Administer over 1 Hours, ONCE, 1 dose, On Fri04/21/24 at 1600 vancomycin 125 mg oral capsule (2 sources) Glycopeptide Antibacterial Start: 04-27-19 End: 05-07-19 take 1 capsule by mouth four times daily vancomycin (VANCOCIN) 125 mg capsule Indications: C. difficile diarrhea Take 1 capsule by mouth four times daily for 10 days. 40 capsule 04/27/2024 05/07/2024 vitamin b12 1 mg/ml injectable solution (20 sources) Vitamin B12 Start: 04-05-19 End: 10-07-19 cyanocobalamin 1,000 mcg/mL 1cc I'm weekly x 4 weeks then 1cc monthly 1 Each 04/05/2024 10/06/2024 Discontinued vitamin b6 50 mg oral tablet (20 sources) Start: 08-07-19 End: 02-25-20 take 1 tablet by mouth once daily Pyridoxine (Vitamin B6) 50 mg tablet Discontinued 50 mg PO DAILY October 25, 2022 12:00am February 24, 2023 5:42pm Comment on above: Take 1 tablet by [facility] once daily. Problems Active Problems Problem Classification Problem Date Documented Date Episodic/Chronic Abdominal pain (4 sources) Lower abdominal pain; Translations: [Lower abdominal pain, unspecified] Onset: 4 Episodic Administrative/social admission (4 sources) Procedure needed; Translations: [Encounter for pre-employment examination] Onset: 4 12-12-2023 Episodic Anxiety disorders (20 sources) Generalized anxiety disorder; Translations: [Generalized anxiety disorder] Onset: 1 06-01-2020 Chronic Calculus of urinary tract (4 sources) Ureteric colic; Translations: [Unspecified renal colic] 01-26-2024 Episodic Cardiac dysrhythmias (15 sources) Sinus tachycardia; Translations: [Tachycardia, unspecified] 10-14-2022 Episodic Conditions associated with dizziness or vertigo (1 source) Dizziness; Translations: [Dizziness and giddiness] 06-22-2024 Episodic Deficiency and other anemia (20 sources) Iron deficiency anemia due to blood loss; Translations: [Iron deficiency anemia secondary to blood loss (chronic)] Onset: 1 02-09-2021 Chronic Deficiency and other anemia (1 source) Iron deficiency anemia; Translations: [Other iron deficiency anemias] Episodic Deficiency and other anemia (7 sources) Anemia; Translations: [Anemia, unspecified] 04-01-2024 Episodic Deficiency and other anemia (1 source) Anemia, unspecified; Translations: [Anemia, unspecified type] Onset: 5 Episodic Early or threatened labor (6 sources) False labor before 37 completed weeks of gestation; Translations: [False labor before 37 completed weeks of gestation, unspecified trimester] 02-24-2023 Episodic Fluid and electrolyte disorders (7 sources) Hypokalemia, gastrointestinal losses; Translations: [Hypokalemia] 01-26-2024 Episodic Immunizations and screening for infectious disease (20 sources) Patient encounter status; Translations: [Encounter for screening for other viral diseases] Onset: 5 Episodic Inflammatory diseases of female pelvic organs (1 source) Bacterial vaginosis; Translations: [Acute vaginitis] 12-27-2022 Episodic Intestinal infection (1 source) Clostridium difficile diarrhea; Translations: [Enterocolitis due to Clostridium difficile, not specified as recurrent] 04-27-2024 Episodic Malaise and fatigue (1 source) Fatigue; Translations: [Other fatigue] 06-22-2024 Episodic Mood disorders (20 sources) Recurrent major depressive episodes, moderate ; Translations: [Major depressive disorder, recurrent, moderate] Onset: 2 Chronic Mood disorders (1 source) Mood disorders; Translations: [Depression, unspecified depression type] Onset: 5 Nausea and vomiting (4 sources) Nausea and vomiting; Translations: [Nausea with vomiting, unspecified] Onset: 5 05-28-2024 Episodic Neoplasms of unspecified nature or uncertain behavior (2 sources) Thrombocytosis; Translations: [Thrombocytosis] Episodic Noninfectious gastroenteritis (3 sources) Chronic diarrhea; Translations: [Noninfective gastroenteritis and colitis, unspecified] 01-26-2024 Episodic Nonspecific chest pain (14 sources) Chest pain; Translations: [Chest pain, unspecified] 10-14-2022 Episodic Nutritional deficiencies (5 sources) Vitamin D deficiency; Translations: [Vitamin D deficiency, unspecified] Chronic OB-related trauma to perineum and vulva (4 sources) First degree perineal laceration; Translations: [First degree perineal laceration during delivery] 03-19-2023 Episodic Other complications of (1 source) Anemia during - baby not yet delivered; Translations: [Anemia complicating , unspecified trimester] Chronic Other complications of (1 source) Anemia of ; Translations: [Anemia complicating , third trimester] 01-24-2023 Chronic Other female genital disorders (2 sources) [...] finding; Translations: [Other fecal abnormalities] Episodic Other gastrointestinal disorders (7 sources) Diarrhea; Translations: [Diarrhea, unspecified] 12-24-2021 Episodic Other gastrointestinal disorders (1 source) Loose stool; Translations: [Other fecal abnormalities] 05-28-2024 Episodic Other gastrointestinal disorders (2 sources) Acute diarrhea; Translations: [Diarrhea, unspecified] 06-08-2024 Episodic Other gastrointestinal disorders (1 source) Other fecal abnormalities; Translations: [Loose stools] Onset: Episodic Other gastrointestinal disorders (1 source) H/O: ulcerative colitis; Translations: [Personal history of other diseases of the digestive system] 06-22-2024 Episodic Other infections; including parasitic (1 source) Personal history of other infectious and parasitic diseases; Translations: [Personal history of other infectious and parasitic diseases] 06-22-2024 Episodic Other liver diseases (4 sources) Alkaline phosphatase raised; Translations: [Abnormal levels of other serum enzymes] 09-21-2023 Episodic Other lower respiratory disease (16 sources) Dyspnea; Translations: [Dyspnea, unspecified] 10-14-2022 Episodic Other nutritional; endocrine; and metabolic disorders (1 source) Obesity; Translations: [Class 1 obesity with body mass index (BMI) of 30.0 to 30.9 in adult, unspecified obesity type, unspecified whether serious comorbidity present] 12-12-2023 Chronic Other nutritional; endocrine; and metabolic disorders (1 source) Body mass index (BMI) 30.0-30.9, adult; Translations: [Class 1 obesity with body mass index (BMI) of 30.0 to 30.9 in adult, unspecified obesity type, unspecified whether serious comorbidity present] Onset: 4 Chronic Other nutritional; endocrine; and metabolic disorders (2 sources) Overweight in adulthood with body mass index of 25 or more but less than 30; Translations: [Overweight] 04-16-2024 Episodic Other nutritional; endocrine; and metabolic disorders (1 source) Overweight; Translations: [Overweight with body mass index (BMI) of 25 to 25.9 in adult] Onset: 5 Episodic Other nutritional; endocrine; and metabolic disorders (1 source) Body mass index (BMI) 25.0-25.9, adult; Translations: [Overweight with body mass index (BMI) of 25 to 25.9 in adult] Onset: 5 Episodic Other nutritional; endocrine; and metabolic disorders (6 sources) Unintentional weight loss; Translations: [Abnormal weight loss] 09-17-2024 Episodic Other nutritional; endocrine; and metabolic disorders (1 source) Abnormal weight loss; Translations: [Unintentional weight loss] Onset: 5 Episodic Other nutritional; endocrine; and metabolic disorders (2 sources) Adult failure to thrive syndrome; Translations: [Adult failure to thrive] 10-11-2024 Episodic Other and delivery including normal (17 sources) Normal ; Translations: [Encounter for supervision of normal first , first trimester] Episodic Other upper respiratory infections (3 sources) Sore throat symptom; Translations: [Acute pharyngitis, [...] of ] 02-21-2023 Episodic Residual codes; unclassified (3 sources) Gestation period, 40 weeks; Translations: [40 weeks gestation of ] 03-18-2023 Episodic Comment on above: @ 40 weeks in l abor Residual codes; unclassified (1 source) 40 weeks gestation of ; Translations: [ state, incidental] 03-19-2023 Episodic Syncope (2 sources) Syncope; Translations: [Syncope and collapse] Episodic Unclassified (1 source) And/or your 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 sql 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 Unclassified (1 source) Class 1 obesity with body mass index (BMI) of 30.0 to 30.9 in adult, unspecified obesity type, unspecified whether serious comorbidity present; Translations: [Class 1 obesity with body mass index (BMI) of 30.0 to 30.9 in adult, unspecified obesity type, unspecified whether serious comorbidity present] Onset: Past or Other Problems Problem Classification Problem Date Documented Date Episodic/Chronic Diabetes or abnormal glucose tolerance complicating ; childbirth; or the puerperium (20 sources) Abnormal glucose level; Translations: [Abnormal glucose complicating ] Onset: 12-30-2022 Resolved: 04-03-2023 12-30-2022 Episodic Nutritional deficiencies (20 sources) Cobalamin deficiency; Translations: [Deficiency of other specified B group vitamins] Onset: 09-04-2022 Episodic Other aftercare (20 sources) Drug-induced immunodeficiency ; 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)] Onset: 06-21-2022 Episodic Other complications of (20 sources) RhD negative; Translations: [Other specified related conditions, unspecified trimester] Onset: 09-05-2022 Resolved: 04-29-2023 09-05-2022 Episodic Other hematologic conditions (20 sources) H/O: anemia - iron deficient; Translations: [Personal history of diseases of the blood and blood-forming organs and certain disorders involving the immune mechanism] Onset: 08-01-2022 Resolved: 04-03-2023 08-01-2022 Episodic Other liver diseases (20 sources) Elevated liver enzymes level; Translations: [Abnormal levels of other serum enzymes] Onset: 04-25-2024 04-25-2024 Episodic Other liver diseases (3 sources) Abnormal levels of other serum enzymes; Translations: [Elevated liver enzymes] Onset: 10-03-2023 Episodic Other nutritional; endocrine; and metabolic disorders (20 sources) Body mass index - - overweight; Translations: [Overweight] Onset: 05-11-2021 05-11-2021 Episodic Other nutritional; endocrine; and metabolic disorders (20 sources) Childhood obesity; Translations: [Overweight] Onset: 08-24-2015 Resolved: 05-11-2021 05-11-2021 Episodic Other screening for suspected conditions (not mental disorders or infectious disease) (6 sources) Cancer cervix screening status; Translations: [Encounter for screening for malignant neoplasm of cervix] Onset: 10-17-2023 Episodic Screening and history of mental health and substance abuse codes (20 sources) H/O: depression; Translations: [Personal history of other mental and behavioral disorders] Onset: 08-01-2022 08-01-2022 Episodic Results Test Name Value Interpretation Reference Range Facility Absolute lymphocyte countOrd ered By: Dustin Burkett on 10-11-2024 Lymphocytes Auto (Unsp spec) [#/Vol] 2.66 10*3/uL 0.83-4.51 [facility] Absolute neutrophil countOrd ered By: Dustin Burkett on 10-11-2024 Neutrophils (Bld) [#/Vol] 13.5 10*3/uL High 2.0-7.7 [facility] Anion gap in Serum or Plasma Ordered By: Dustin Burkett on 10-11-2024 Anion gap [Moles/Vol] 12 mmol/L 5-15 [facility] Automated lymphocyte count a s percentage of total leukocytesOrdered By: Dustin Burkett on 10-11-2024 Lymphocytes/100 WBC Auto (Unsp spec) 15.2 % Low 19-41 [facility] BUN/creatinine ratioOrdered By: Dustin Burkett on 10-11-2024 Urea nitrogen/Creatinine [Mass ratio] 10.5 mg/mg 10-20 [facility] Basophil percentageOrdered B y: Dustin Burkett on 10-11-2024 Basophils/100 WBC (Bld) 0.7 % 0-1 [facility] Bilirubin, totalOrdered By: Dustin Burkett on 10-11-2024 Bilirubin [Mass/Vol] 0.34 mg/dL 0.00-1.30 [facility] Blood manual differential co mment interpretation (narrative result)Ordered By: Dustin Burkett on 10-11-2024 Manual differential comment Jorge (Bld) [Interp] See comment [facility] Comment on above: SENT TO PATH Carbon dioxide, total [Moles /volume] in Central venous bloodOrdered By: Dustin Burkett on 10-11-2024 CO2 [Moles/Vol] 28.1 mmol/L 21.0-32.0 [facility] Chloride assayOrdered By: Vince Burkett on 10-11-2024 Chloride [Moles/Vol] 96 mmol/L Low 98-108 [facility] Eosinophil percentageOrdered By: Dustin Burkett on 10-11-2024 Eosinophils/100 WBC (Bld) 0.1 % 0-5 [facility] Erythrocyte distribution wid th ratioOrdered By: Dustin Burkett on 10-11-2024 Erythrocyte distribution width (RBC) [Ratio] 14.2 % 11.6-14.6 [facility] Erythrocyte distribution wid th standard deviationOrdered By: Dustin Burkett on 10-11-2024 Erythrocyte distribution width (RBC) [Ratio] 45.4 fl High 35.1-43.9 [facility] Glomerular filtration rate ( GFR) estimation/1.73 sq m using serum, plasma, or whole bOrdered By: Dustin Burkett on 10-11-2024 GFR/1.73 sq M.predicted among non-blacks MDRD (S/P/Bld) [Vol rate/Area] 139 mL/min/{1.73_m2} >60 [facility] Comment on above: mL/min/1.73m2 CKD-EP I Creatinine Equation (2020) Hematocrit Auto (Bld) [Volum e fraction]Ordered By: Dustin Burkett on 10-11-2024 Hematocrit (Bld) [Volume fraction] 36.3 % Low 37-47 [facility] Hemoglobin measurementOrdere d By: Dustin Burkett on 10-11-2024 Hemoglobin (Bld) [Mass/Vol] 11.7 g/dL Low 12.0-15.0 [facility] Immature granulocytes/100 WB C Auto (Bld)Ordered By: Dustin Burkett on 10-11-2024 Immature granulocytes/100 WBC (Bld) 0.700 % 0.0-0.9 [facility] Comment on above: IG% - Immature Granu locytes (promyelocytes, myelocytes and metamyelocytes) > 1% indicates that a LEFT SHIFT is Present. Laboratory - Chemistry and C hemistry - challengeOrdered By: Dustin Burkett on 10-11-2024 AST [Catalytic activity/Vol] 16 U/L <32 [facility] Lactic acid measurementOrder ed By: Dustin Burkett on 10-11-2024 Lactate [Moles/Vol] 1.1 mmol/L 0.0-2.0 [facility] Lipase measurementOrdered By : Dustin Burkett on 10-11-2024 Lipase [Catalytic activity/Vol] 5 U/L Low 13-75 [facility] Comment on above: Please note:LIPASE r evised reference range effective 22. New Lipase methodology. Expected to produce lower values than the previous assay method. NEW Reference Range: 13 - 75 U/L MCV (mean corpuscular volume ) determinationOrdered By: Dustin Burkett on 10-11-2024 MCV (RBC) [Entitic vol] 87.9 fL 81-99 [facility] Mean corpuscular hemoglobin (MCH) determinationOrdered By: Dustin Burkett on 10-11-2024 MCH (RBC) [Entitic mass] 28.3 pg 27.0-32.0 [facility] Mean corpuscular hemoglobin concentration (MCHC) determinationOrdered By: Dustin Burkett on 10-11-2024 MCHC (RBC) [Mass/Vol] 32.2 g/dL 32-36 [facility] Mean platelet volume determi nationOrdered By: Dustin Burkett on 10-11-2024 Platelet mean volume (Bld) [Entitic vol] 8.4 fL 6.2-12.0 [facility] Monocyte percentageOrdered B y: Dustin Burkett on 10-11-2024 Monocytes/100 WBC (Bld) 6.2 % 0-10 [facility] Neutrophil percentageOrdered By: Dustin Burkett on 10-11-2024 Neutrophils/100 WBC (Bld) 77.1 % High 47-70 [facility] Nucleated red blood cell per centageOrdered By: Dustin Burkett on 10-11-2024 Nucleated RBC/100 WBC (Bld) [Ratio] 0 % 0-5 [facility] Platelet countOrdered By: Vince Burkett on 10-11-2024 Platelets (Bld) [#/Vol] 963 10*3/uL High 150-450 [facility] Comment on above: CRITICAL VALUE BEGUM D TO Artie JURADO10/11/24 1502 Sulema Lopez.RESULTS READ BACK BY SAME. Platelet estimateOrdered By: Dustin Burkett on 10-11-2024 Platelets LM Ql (Bld) MKD INC ADEQ [facility] Potassium measurement (mass/ volume)Ordered By: Dustin Burkett on 10-11-2024 Potassium (Unsp spec) [Mass/Vol] 3.0 mmol/L Low 3.3-5.1 [facility] RBC Auto (Bld) [#/Vol]Ordere d By: Dustin Burkett on 10-11-2024 RBC (Bld) [#/Vol] 4.13 10*6/uL Low 4.2-5.4 [facility] Review by pathologistOrdered By: Dustin Burkett on 10-11-2024 Pathologist review Jorge (Unsp spec) [Interp] July [facility] Serum creatinine measurement (mass/volume)Ordered By: Dustin Burkett on 10-11-2024 Creatinine [Mass/Vol] 0.45 mg/dL Low 0.70-1.20 [facility] Serum globulin measurementOr dered By: Dustin Burkett on 10-11-2024 Globulin (S) [Mass/Vol] 3.4 g/dL 2.2-4.2 [facility] Serum glucose measurement (m ass/volume)Ordered By: Dustin Burkett on 10-11-2024 Glucose [Mass/Vol] 92 mg/dL 70-99 [facility] Serum or plasma alanine lind otransferase (ALT) measurementOrdered By: Dustin Burkett on 10-11-2024 ALT [Catalytic activity/Vol] 7 U/L <35 [facility] Serum or plasma albumin gerda urement (mass/volume)Ordered By: Dustin Burkett on 10-11-2024 Albumin [Mass/Vol] 2.4 g/dL Low 3.5-5.0 [facility] Serum or plasma albumin/glob ulin mass ratioOrdered By: Dustin Burkett on 10-11-2024 Albumin/Globulin [Mass ratio] 0.7 {ratio} Low 0.9-2.4 [facility] Serum or plasma alkaline gerri sphatase measurementOrdered By: Dustin Burkett on 10-11-2024 ALP [Catalytic activity/Vol] 211 U/L High 35-104 [facility] Serum or plasma calcium gerda urement (mass/volume)Ordered By: Dustin Burkett on 10-11-2024 Calcium [Mass/Vol] 8.2 mg/dL 7.6-11.0 [facility] Serum or plasma urea nitroge n measurement (mass/volume)Ordered By: Dustin Bukrett on 10-11-2024 Urea nitrogen [Mass/Vol] 5 mg/dL 4-19 [facility] Sodium levelOrdered By: Tyrel Burkett on 10-11-2024 Sodium [Moles/Vol] 136 mmol/L 133-145 [facility] Total proteinOrdered By: Oneyda Burkett on 10-11-2024 Protein [Mass/Vol] 5.9 g/dL 5.9-8.4 [facility] White blood cell (WBC) count Ordered By: Dustin Burkett on 10-11-2024 WBC (Bld) [#/Vol] 17.5 10*3/uL High 4.4-11.0 [facility] Calprotectin (Stl) [Mass/Mas s]on 10-07-2024 CALPROTECTIN, FECAL INTERP Elevated Abnormal Normal [facility] Comment on above: Order Comment: Speci men Type: STOOL SPECIMEN Ordering Facility: [facility] Address: [address] [place] [address] Result Comment: Inte rpretation: <50.0 ug/g: Normal 50.0 ug/g - 120.0 ug/g: Borderline elevated. Re-evaluation in 4-6 weeks is recommended if clinically indicated. >120.0 ug/g: Elevated Performed By: #### 3 8445-3 #### [facility] CLIA [id number] [address] [place] [address] [place] CALPROTECTIN, FECAL QUANTITATIVE 1160 ug/g High <50 [facility] Comment on above: Order Comment: Speci men Type: STOOL SPECIMEN Ordering Facility: [facility] Address: [address] [place] [address] Performed By: #### 3 8445-3 #### [facility] CLIA [id number] [address] [place] [address] [place] GGTon 10-07-2024 Gamma glutamyl transferase [Catalytic activity/Vol] 20 U/L 6 - 46 U/L [facility] Gamma glutamyl transferase [ Catalytic activity/Vol]on 10-07-2024 Interpretation and review of laboratory results Normal [facility] 25(OH)D3 SerPl-mCncon 2024 25-hydroxyvitamin D3 [Mass/Vol] 28.4 ng/mL Low 31.0-80.0 [facility] Comment on above: Order Comment: Speci men Type: BLOOD SPECIMEN Ordering Facility: [facility] Address: [address] [place] [address] Result Comment: Clas sification of 25 [place] Vitamin D status: Deficiency/Insufficiency: < or = 30 ng/ml. Sufficiency/Optimal Levels: 31-80 ng/mL Toxicity: > 100 ng/mL. Test performed by chemiluminescent immunoassay. Performed By: #### 2 4323-8, 3016-3, 29321-8 #### [facility] CLIA [id number] [address] [place] [address] [place] ALP SerPl-cCncon 10-06-2024 ALP [Catalytic activity/Vol] 190 U/L High 34-123 [facility] Comment on above: Order Comment: Speci men Type: STOOL SPECIMEN Ordering Facility: [facility] Address: [address] [place] [address] Performed By: #### 3 8445-3 #### [facility] CLIA [id number] [address] [place] [address] [place] CBC W Auto Differential pane l (Bld)on 10-06-2024 Basophils (Bld) [#/Vol] 0.00 10*3/uL Normal <0.11 [facility] Comment on above: Order Comment: Speci men Type: BLOOD SPECIMEN Ordering Facility: [facility] Address: [address] [place] [address] Performed By: #### 2 4323-8, 6-3, 34384-9 #### [facility] CLIA [id number] [address] [place] [address] [place] Basophils/100 WBC (Bld) 0.0 % Normal [facility] Comment on above: Order Comment: Speci men Type: BLOOD SPECIMEN Ordering Facility: [facility] Address: [address] [place] [address] Performed By: #### 2 4323-8, 3016-3, 12289-1 #### [facility] CLIA [id number] [address] [place] [address] [place] Differential cell count method Nom (Bld) Manual Normal [facility] Comment on above: Order Comment: Speci men Type: BLOOD SPECIMEN Ordering Facility: [facility] Address: [address] [place] [address] Performed By: #### 2 4323-8, 3016-3, 67390-3 #### [facility] CLIA [id number] [address] [place] [address] [place] Eosinophils (Bld) [#/Vol] 0.00 10*3/uL Normal <0.46 [facility] Comment on above: Order Comment: Speci men Type: BLOOD SPECIMEN Ordering Facility: [facility] Address: [address] [place] [address] Performed By: #### 2 4323-8, 6-3, 58902-2 #### [facility] CLIA [id number] [address] [place] [address] [place] Eosinophils/100 WBC (Bld) 0.0 % Normal [facility] Comment on above: Order Comment: Speci men Type: BLOOD SPECIMEN Ordering Facility: [facility] Address: [address] [place] [address] Performed By: #### 2 4323-8, 3015-3, 78375-8 #### [facility] CLIA [id number] [address] [place] [address] [place] Erythrocyte distribution width (RBC) [Ratio] 14.9 % Normal 11.5-15.0 [facility] Comment on above: Order Comment: Speci men Type: BLOOD SPECIMEN Ordering Facility: [facility] Address: [address] [place] [address] Performed By: #### 2 4323-8, 3015-3, 22661-5 #### [facility] CLIA [id number] [address] [place] [address] [place] Hematocrit (Bld) [Volume fraction] 34.6 % Low 36.0-46.0 [facility] Comment on above: Order Comment: Speci men Type: BLOOD SPECIMEN Ordering Facility: [facility] Address: [address] [place] [address] Performed By: #### 2 4323-8, 6-3, 74136-5 #### [facility] CLIA [id number] [address] [place] [address] [place] Hemoglobin (Bld) [Mass/Vol] 10.7 g/dL Low 11.5-15.5 [facility] Comment on above: Order Comment: Speci men Type: BLOOD SPECIMEN Ordering Facility: [facility] Address: [address] [place] [address] Performed By: #### 2 4323-8, 3016-3, 44628-9 #### [facility] CLIA [id number] [address] [place] [address] [place] Lymphocytes (Bld) [#/Vol] 0.90 10*3/uL Low 1.00-4.00 [facility] Comment on above: Order Comment: Speci men Type: BLOOD SPECIMEN Ordering Facility: [facility] Address: [address] [place] [address] Performed By: #### 2 4323-8, 3015-3, 41746-0 #### [facility] CLIA [id number] [address] [place] [address] [place] Lymphocytes/100 WBC (Bld) 7.8 % Normal [facility] Comment on above: Order Comment: Speci men Type: BLOOD SPECIMEN Ordering Facility: [facility] Address: [address] [place] [address] Performed By: #### 2 4323-8, 3015-3, 71602-3 #### [facility] CLIA [id number] [address] [place] [address] [place] MCH (RBC) [Entitic mass] 28.8 pg Normal 26.0-34.0 [facility] Comment on above: Order Comment: Speci men Type: BLOOD SPECIMEN Ordering Facility: [facility] Address: [address] [place] [address] Performed By: #### 2 4323-8, 6-3, 06647-6 #### [facility] CLIA [id number] [address] [place] [address] [place] MCHC (RBC) [Mass/Vol] 30.9 g/dL Normal 30.5-36.0 [facility] Comment on above: Order Comment: Speci men Type: BLOOD SPECIMEN Ordering Facility: [facility] Address: [address] [place] [address] Performed By: #### 2 4323-8, 3015-3, 38925-2 #### [facility] CLIA [id number] [address] [place] [address] [place] MCV (RBC) [Entitic vol] 93.3 fL Normal 80.0-100.0 [facility] Comment on above: Order Comment: Speci men Type: BLOOD SPECIMEN Ordering Facility: [facility] Address: [address] [place] [address] Performed By: #### 2 4323-8, 3, #### [facility] CLIA [id number] [address] [place] [address] [place] Monocytes (Bld) [#/Vol] 0.10 10*3/uL Normal <0.87 [facility] Comment on above: Order Comment: Speci men Type: BLOOD SPECIMEN Ordering Facility: [facility] Address: [address] [place] [address] Performed By: #### 2 4323-8, 3, #### [facility] CLIA [id number] [address] [place] [address] [place] Monocytes/100 WBC (Bld) 0.9 % Normal [facility] Comment on above: Order Comment: Speci men Type: BLOOD SPECIMEN Ordering Facility: [facility] Address: [address] [place] [address] Performed By: #### 2 4323-8, 3, #### [facility] CLIA [id number] [address] [place] [address] [place] Neutrophils (Bld) [#/Vol] 10.54 10*3/uL High 1.45-7.50 [facility] Comment on above: Order Comment: Speci men Type: BLOOD SPECIMEN Ordering Facility: [facility] Address: [address] [place] [address] Performed By: #### 2 4323-8, 3015-3, 80425-9 #### [facility] CLIA [id number] [address] [place] [address] [place] Neutrophils/100 WBC (Bld) 91.3 % Normal [facility] Comment on above: Order Comment: Speci men Type: BLOOD SPECIMEN Ordering Facility: [facility] Address: [address] [place] [address] Performed By: #### 2 4323-8, 3, 19310-6 #### [facility] CLIA [id number] [address] [place] [address] [place] Nucleated RBC (Bld) [#/Vol] 10*3/uL Normal <0.01 [facility] Comment on above: Order Comment: Speci men Type: BLOOD SPECIMEN Ordering Facility: [facility] Address: [address] [place] [address] Performed By: #### 2 4323-8, 3, 71211-4 #### [facility] CLIA [id number] [address] [place] [address] [place] Nucleated RBC/100 WBC (Bld) [Ratio] 0.0 /100 WBC Normal [facility] Comment on above: Order Comment: Speci men Type: BLOOD SPECIMEN Ordering Facility: [facility] Address: [address] [place] [address] Performed By: #### 2 4323-8, 3, 85001-7 #### [facility] CLIA [id number] [address] [place] [address] [place] Platelet mean volume (Bld) [Entitic vol] 9.0 fL Normal 9.0-12.7 [facility] Comment on above: Order Comment: Speci men Type: BLOOD SPECIMEN Ordering Facility: [facility] Address: [address] [place] [address] Performed By: #### 2 4323-8, 3015-3, 43166-3 #### [facility] CLIA [id number] [address] [place] [address] [place] Platelets (Bld) [#/Vol] 648 10*3/uL High 150-400 [facility] Comment on above: Order Comment: Speci men Type: BLOOD SPECIMEN Ordering Facility: [facility] Address: [address] [place] [address] Performed By: #### 2 4323-8, 3015-3, 88226-3 #### [facility] CLIA [id number] [address] [place] [address] [place] Platelets Estimate (Bld) [#/Vol] Increased Normal [facility] Comment on above: Order Comment: Speci men Type: BLOOD SPECIMEN Ordering Facility: [facility] Address: [address] [place] [address] Performed By: #### 2 4323-8, 3015-3, 39502-0 #### [facility] CLIA [id number] [address] [place] [address] [place] Polychromasia LM Ql (Bld) Slight Normal [facility] Comment on above: Order Comment: Speci men Type: BLOOD SPECIMEN Ordering Facility: [facility] Address: [address] [place] [address] Performed By: #### 2 4323-8, 3, 75116-7 #### [facility] CLIA [id number] [address] [place] [address] [place] RBC (Bld) [#/Vol] 3.71 10*6/uL Low 3.90-5.20 [facility] Comment on above: Order Comment: Speci men Type: BLOOD SPECIMEN Ordering Facility: [facility] Address: [address] [place] [address] Performed By: #### 2 4323-8, 6-3, 35377-5 #### [facility] CLIA [id number] [address] [place] [address] [place] RED CELL MORPH Reviewed: see result s of individual morphologies Normal [facility] Comment on above: Order Comment: Speci men Type: BLOOD SPECIMEN Ordering Facility: [facility] Address: [address] [place] [address] Performed By: #### 2 4323-8, 3015-3, 53047-0 #### [facility] CLIA [id number] [address] [place] [address] [place] [place] Target cells LM Ql (Bld) Few Normal [facility] Comment on above: Order Comment: Speci men Type: BLOOD SPECIMEN Ordering Facility: [facility] Address: [address] [place] [address] Performed By: #### 2 4323-8, 3015-3, 20211-8 #### [facility] CLIA [id number] [address] [place] [address] [place] WBC (Bld) [#/Vol] 11.54 10*3/uL High 3.70-11.00 [facility] Comment on above: Order Comment: Speci men Type: BLOOD SPECIMEN Ordering Facility: [facility] Address: [address] [place] [address] Performed By: #### 2 4323-8, 3015-3, 09854-9 #### [facility] CLIA [id number] [address] [place] [address] [place] WBC Left Shift Ql (Bld) Present Normal [facility] Comment on above: Order Comment: Speci men Type: BLOOD SPECIMEN Ordering Facility: [facility] Address: [address] [place] [address] Performed By: #### 2 4323-8, 3015-3, 23588-5 #### [facility] ALEJA [id number] [address] [place] [address] [place] CNOVon 10-06-2024 CNOV Office Visit (FAMPWS ) ----- RADHA BARNES ([id number]) 2 F Date Time Provider Department 10/06/24 1:00 PM FELIPA WHITTINGTON During your visit today, we recorded the following information about you: Temperature Pulse Respiration Blood pressure 98.6 degrees 104/minute 20/minute 118/84 Weight Height 47.2 kg 1.53 m Felipa Whittington MD 10/06/2024 3:49 PM Signed Family Medicine OUTPATIENT VISIT October 06, 2024 CC: Establish care HPI: 24 year old female patient with a history of UC on prednisone (15mg) on prilosec ulcer ppx Iron deficiency anemia Hypokalemia on supplements Mirena IUD 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 Last 40 pounds with that flare. Getting a colonoscopy in November. Still having some loose blood stools since April of this year. Still having some abdominal pain, around 3/10. Still having some blood in the stool as well, which is when she wipes but also in the toilet bowl. No nausea or vomiting. Abdominal is upper abdomen, which is less typical for her usual UC pain. Not using anything else other than prednisone for her pain. Now taking 15mg daily. States longest course has been 2 months at a single time. No recent vitamin D. Having palpitations at times which improves with drinking gatorade. Had C diff as well in Apr. States her symptoms are slightly better than when she had labs done on 09/23. Feels a lot of anxiety regarding her UC and rage No TSH or thoughts of hurting others. Endorsing anhedonia, fatigue, anhedonia. She has had persistently elevated alk phos that is trending up in the last year. With rest of liver labs WNL. No hx MRCP/ERCP. Review of Systems PAIN ASSESSMENT: Negative for pain, history of chronic pain, or current treatment for a chronic pain condition. GENERAL: No weight loss, or fevers HEENT: Negative for frequent or significant headaches RESPIRATORY: Negative for cough, wheezing, shortness of breath CARDIOVASCULAR: Negative for chest pain, palpitations, PND or orthopnea GI: as above : No history of dysuria, frequency, urgency, or change in urine appearance NEURO: No history of headaches, numbness, weakness, or changes to vision or hearing Health maintenance: Cervical Cancer Screening due on 06/22/2023 Allergies: ALLERGIES No Known Allergies Medications: predniSONE (DELTASONE) 5 mg tablet Take 4 tablets by mouth once daily for 14 days, THEN 3 tablets once daily for 14 days, THEN 2 tablets once daily for 7 days, THEN 1 tablet once daily for 7 days. omeprazole (PRILOSEC) 20 mg capsule Take 1 capsule by mouth once daily. ferrous sulfate (FEOSOL) 325 mg (65 mg iron) tablet Take 1 tablet by mouth once daily. levonorgestrel (MIRENA) 21 mcg/24 hours (8 yrs) 52 mg IUD 1 Each by INTRAUTERINE route as directed. citalopram hydrobromide (CELEXA) 10 mg tablet Take 1 tablet by mouth once daily. folic acid 1 mg tablet Take 1 tablet by mouth once daily. Past Medical History: PAST MEDICAL HISTORY Diagnosis Date Anxiety and depression Childhood overweight, BMI 85-94.9 percentile 08/2015 Iron deficiency anemia Iron deficiency anemia due to chronic blood loss 02/09/2021 Menarche 01/2013 PM - PAST MEDICAL HISTORY OF 10/15/2006 normal color vision depression Ulcerative colitis (HCC) elevated liver enzymes Social History: Social History Tobacco Use Smoking status: Never Smokeless tobacco: Never Vaping Use Vaping status: Never Used Substance Use Topics Alcohol use: Not Currently Comment: occasional Drug use: No Family History: Family History Problem Relation Age of Onset Hypertension Mother other (gluten intolerance) Mother Skin Cancer Mother Fibromyalgia Mother Hypertension Father Heart Sister murmur as an Heart Maternal Grandmother Diabetes Maternal Grandmother Hypertension Maternal Grandfather Heart Maternal Grandfather 60s other (Bladder cancer) Maternal Grandfather smoker Heart Paternal Grandmother Hypertension Paternal Grandmother Hypertension Paternal Grandfather Heart Paternal Grandfather age 52 PA; adn MGGF BP 118/84 Pulse 104 Temp 37 ?C (98.6 ?F) (Tympanic) Resp 20 Ht 153 cm (5' 0.25) Wt 47.2 kg (104 lb) LMP 03/21/2024 (Exact Date) No BMI 20.14 kg/m? 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 No abnormal posturing or positioning. Speech is normal. Strength grossly intact. RESP: Clear lungs bilateral with good air entry, No increased work of breathing CVS: RRR, No murmur. Pulses 2+. GI: Abdomen is soft, non distended, tender in lower abdomen without rigidity or guarding. Does seem to have hepatomegaly 1-2cm below costal margin. No other masses or organomegaly. Skin/Other: No rashes or lesions. HEENT: (more content not included)... Normal [facility] CRP SerPl-ncon 10-06-2024 CRP [Mass/Vol] 1.5 mg/dL High <0.9 [facility] Comment on above: Order Comment: Speci men Type: BLOOD SPECIMEN Ordering Facility: [facility] Address: [address] [place] [address] Performed By: #### 2 4323-8, 3016-3, 20968-1 #### [facility] CLIA [id number] [address] [place] [address] [place] Comprehensive metabolic 2000 panelon 10-06-2024 Albumin [Mass/Vol] 2.5 g/dL Low 3.9-4.9 [facility] Comment on above: Order Comment: Speci men Type: BLOOD SPECIMEN Ordering Facility: [facility] Address: [address] [place] [address] Performed By: #### 2 4323-8, 3016-3, 50209-9 #### [facility] CLIA [id number] [address] [place] [address] [place] ALP [Catalytic activity/Vol] 176 U/L High 34-123 [facility] Comment on above: Order Comment: Speci men Type: BLOOD SPECIMEN Ordering Facility: [facility] Address: [address] [id number] Performed By: #### 2 4323-8, 3016-3, 13558-3 #### [facility] CLIA [id number] [address] [place] [address] [place] ALT [Catalytic activity/Vol] 10 U/L Normal 7-38 [facility] Comment on above: Order Comment: Speci men Type: BLOOD SPECIMEN Ordering Facility: [facility] Address: [address] [place] [address] Performed By: #### 2 4323-8, 6-3, 11008-5 #### [facility] CLIA [id number] [address] [place] [address] [place] Anion gap [Moles/Vol] 13 mmol/L Normal 8-15 [facility] Comment on above: Order Comment: Speci men Type: BLOOD SPECIMEN Ordering Facility: [facility] Address: [address] [place] [address] Performed By: #### 2 4323-8, 6-3, 09496-2 #### [facility] CLIA [id number] [address] [place] [address] [place] AST [Catalytic activity/Vol] 15 U/L Normal 13-35 [facility] Comment on above: Order Comment: Speci men Type: BLOOD SPECIMEN Ordering Facility: [facility] Address: [address] [place] [address] Performed By: #### 2 4323-8, 6-3, 20203-5 #### [facility] CLIA [id number] [address] [place] [address] [place] Bilirubin [Mass/Vol] mg/dL Low 0.2-1.3 [facility] Comment on above: Order Comment: Speci men Type: BLOOD SPECIMEN Ordering Facility: [facility] Address: [address] [place] [address] Performed By: #### 2 4323-8, 6-3, 85304-6 #### [facility] CLIA [id number] [address] [place], [place] [address] [place] Calcium [Mass/Vol] 8.0 mg/dL Low 8.5-10.2 [facility] Comment on above: Order Comment: Speci men Type: BLOOD SPECIMEN Ordering Facility: [facility] Address: [address] [place], [place] [address] Performed By: #### 2 4323-8, 3015-3, 73372-4 #### [facility] CLIA [id number] [address] [place] [address] [place] Chloride [Moles/Vol] 99 mmol/L Normal 98-107 [facility] Comment on above: Order Comment: Speci men Type: BLOOD SPECIMEN Ordering Facility: [facility] Address: [address] [place], [place] [address] Performed By: #### 2 4323-8, 3015-3, 51985-4 #### [facility] CLIA [id number] [address] [place] [address] [place] CO2 [Moles/Vol] 28 mmol/L Normal 22-30 [facility] Comment on above: Order Comment: Speci men Type: BLOOD SPECIMEN Ordering Facility: [facility] Address: [address] [place] [address] Performed By: #### 2 4323-8, 3015-3, 49827-5 #### [facility] CLIA [id number] [address] [place], [place] [address] [place] Creatinine [Mass/Vol] 0.40 mg/dL Low 0.58-0.96 [facility] Comment on above: Order Comment: Speci men Type: BLOOD SPECIMEN Ordering Facility: [facility] Address: [address] [place] [address] Performed By: #### 2 4323-8, 6-3, 33780-4 #### [facility] CLIA [id number] [address] [place] [address] [place] eGFRcr SerPlBld CKD-EPI 2020 143 mL/min/1.73m??? Normal >=60 [facility] Comment on above: Order Comment: Sara diaz Type: BLOOD SPECIMEN Ordering Facility: [facility] Address: [address] [place] [address] Result Comment: Macy mated Glomerular Filtration Rate (eGFR) is calculated using the 2020 CKD-EPI creatinine equation. This equation utilizes serum creatinine, sex, and age as parameters. The creatinine assay has traceable calibration to isotope dilution-mass spectrometry. Refer to KDIGO guidelines for clinical interpretation. In patients with unstable renal function, e.g. those with acute kidney injury, the eGFR may not accurately reflect actual GFR. Performed By: #### 2 4323-8, 3016-3, 17993-8 #### [facility] CLIA [id number] [address] [place] [address] [place] Glucose [Mass/Vol] 86 mg/dL Normal 74-99 [facility] Comment on above: Order Comment: Sara diaz Type: BLOOD SPECIMEN Ordering Facility: [facility] Address: [address] [place] [address] Result Comment: The [place] Diabetes [employer] (ADA) provides guidance for cutoff values for fasting glucose and random glucose. The ADA defines fasting as no caloric intake for at least 8 hours. Fasting plasma glucose results between 100 to 125 mg/dL indicate increased risk for diabetes (prediabetes). Fasting plasma glucose results greater than or equal to 126 mg/dL meet the criteria for diagnosis of diabetes. In the absence of unequivocal hyperglycemia, results should be confirmed by repeat testing. In a patient with classic symptoms of hyperglycemia or hyperglycemic crisis, random plasma glucose results greater than or equal to 200 mg/dL meet the criteria for diagnosis of diabetes. Reference: Standards of Medical Care in Diabetes 2016, [place] [employer]. Diabetes Care. 2016.39(Suppl 1). Performed By: #### 2 4323-8, 3016-3, 23684-0 #### [facility] CLIA [id number] [address] [place], [place] [address] [place] Potassium [Moles/Vol] 3.6 mmol/L Low 3.7-5.1 [facility] Comment on above: Order Comment: Speci men Type: BLOOD SPECIMEN Ordering Facility: [facility] Address: [address] [place] [address] Performed By: #### 2 4323-8, 3016-3, 75828-9 #### [facility] CLIA [id number] [address] [place] [address] [place] Protein [Mass/Vol] 5.8 g/dL Low 6.3-8.0 [facility] Comment on above: Order Comment: Speci men Type: BLOOD SPECIMEN Ordering Facility: [facility] Address: [address] [place] [address] Performed By: #### 2 4323-8, 3015-3, 97075-2 #### [facility] CLIA [id number] [address] [place] [address] [place] Sodium [Moles/Vol] 140 mmol/L Normal 136-144 [facility] Comment on above: Order Comment: Speci men Type: BLOOD SPECIMEN Ordering Facility: [facility] Address: [address] [place] [address] Performed By: #### 2 4323-8, 6-3, 86594-3 #### [facility] CLIA [id number] [address] [place], [place] [address] [place] Urea nitrogen [Mass/Vol] 6 mg/dL Low 7-21 [facility] Comment on above: Order Comment: Speci men Type: BLOOD SPECIMEN Ordering Facility: [facility] Address: [address] [place] [address] Performed By: #### 2 4323-8, 6-3, 07243-4 #### [facility] CLIA [id number] [address] [place], [place] [address] [place] ESR Westergren method (Bld) [Velocity]on 10-06-2024 ESR (Bld) [Velocity] 54 mm/h High [facility] Interpretation and review of laboratory results Abnormal [facility] ESR (Bld) [Velocity] 54 mm/h High 0-20 [facility] Comment on above: Order Comment: Speci men Type: BLOOD SPECIMEN Ordering Facility: [facility] Address: [address] [place] [address] Performed By: #### 2 4323-8, 3016-3, 17043-3 #### [facility] CLIA [id number] [address] [place] [address] [place] GGT SerPl-cCncon 10-06-2024 Gamma glutamyl transferase [Catalytic activity/Vol] 20 U/L Normal 6-46 [facility] Comment on above: Order Comment: Speci men Type: STOOL SPECIMEN Ordering Facility: [facility] Address: [address] [place] [address] Performed By: #### 3 8445-3 #### [facility] CLIA [id number] [address] [place] [address] [place] Michelle 10-05-2024 CNPN Telephone (GSTNOR) ----- RADHA BARNES ([id number]) 2 F Date Time Provider Department 10/05/24 GIANA ARCEO During your visit today, we recorded the following information about you: Ventura Gutierrez 10/05/2024 12:23 PM Signed Patient is asking the status on the En[employer] authorization. Please contact and advise patient, follow up was made for 01/27/25 with Giana. Allergies As of Date: 10/05/2024 (No Known Allergies) Date Reviewed: 09/24/2024 Reviewed by: Eulalia Frederick, RT(R) - Fully Assessed Reason for Visit: Patient Question [5767] Cmt: Infusion start Prescriptions as of 10/05/2024 - predniSONE (DELTASONE) 5 mg tablet Take 4 tablets by mouth once daily for 14 days, THEN 3 tablets once daily for 14 days, THEN 2 tablets once daily for 7 days, THEN 1 tablet once daily for 7 days. - omeprazole (PRILOSEC) 20 mg capsule Take 1 capsule by mouth once daily. - potassium chloride 20 mEq TbER Take 1 tablet by mouth every 12 hours. - ondansetron orally disintegrating (ZOFRAN ODT) 4 mg disintegrating tablet Take 1 tablet by mouth every 8 hours as needed for nausea/vomiting. - cyanocobalamin 1,000 mcg/mL 1cc I'm weekly x 4 weeks then 1cc monthly - folic acid 1 mg tablet Take 1 tablet by mouth once daily. - ferrous sulfate (FEOSOL) 325 mg (65 mg iron) tablet Take 1 tablet by mouth once daily. - levonorgestrel (MIRENA) 21 mcg/24 hours (8 yrs) 52 mg IUD 1 Each by INTRAUTERINE route as directed. Problem List As Of Date 10/05/2024 Noted Resolved Childhood overweight, BMI 85-94.9 percentile [E*08/24/2015 05/11/2021 Generalized anxiety disorder [F41.1] 06/01/2020 Iron deficiency anemia due to chronic blood los*02/09/2021 Ulcerative colitis (HCC) [K51.90] 02/09/2021 Overweight (BMI 25.0-29.9) [E66.3] 05/11/2021 Moderate episode of recurrent major depressive *12/21/2021 Immunocompromised state due to drug therapy (HC*06/21/2022 History of iron deficiency anemia [Z86.2] 08/01/2022 04/03/2023 History of depression [Z86.59] 08/01/2022 Patient request for diagnostic testing [Z01.89] 08/01/2022 04/03/2023 B12 deficiency [E53.8] 09/04/2022 Rh negative state in antepartum period [O26.899*09/05/2022 04/29/2023 Abnormal glucose complicating [O99.81*12/30/2022 04/03/2023 Elevated liver enzymes [R74.8] 04/25/2024 Encounter Status:Closed by SÁNCHEZ MARY on 10/05/24 Normal [facility] MAURILIONon 09-29-2024 CNPN Telephone (GSTNOR) ----- RADHA BARNES ([id number]) 2 F Date Time Provider Department 09/29/24 KAROLINA YU GSTNOR During your visit today, we recorded the following information about you: Dinora Lopez 09/29/2024 10:33 AM Signed Pt would like someone to give her a call about her blood tests a,d CT results, she said she got them already on my chart. Thank you. Karolina Yu, 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.[facility] 09/30/2024 8:53 AM Signed Result message sent Allergies As of Date: 09/29/2024 (No Known Allergies) Date Reviewed: 09/24/2024 Reviewed by: Eulalia Frederick, (R) - Fully Assessed Prescriptions as of 09/30/2024 - predniSONE (DELTASONE) 5 mg tablet Take 4 tablets by mouth once daily for 14 days, THEN 3 tablets once daily for 14 days, THEN 2 tablets once daily for 7 days, THEN 1 tablet once daily for 7 days. - omeprazole (PRILOSEC) 20 mg capsule Take 1 capsule by mouth once daily. - potassium chloride 20 mEq TbER Take 1 tablet by mouth every 12 hours. - ondansetron orally disintegrating (ZOFRAN ODT) 4 mg disintegrating tablet Take 1 tablet by mouth every 8 hours as needed for nausea/vomiting. - cyanocobalamin 1,000 mcg/mL 1cc I'm weekly x 4 weeks then 1cc monthly - folic acid 1 mg tablet Take 1 tablet by mouth once daily. - ferrous sulfate (FEOSOL) 325 mg (65 mg iron) tablet Take 1 tablet by mouth once daily. - levonorgestrel (MIRENA) 21 mcg/24 hours (8 yrs) 52 mg IUD 1 Each by INTRAUTERINE route as directed. Problem List As Of Date 09/29/2024 Noted Resolved Childhood overweight, BMI 85-94.9 percentile [E*08/24/2015 05/11/2021 Generalized anxiety disorder [F41.1] 06/01/2020 Iron deficiency anemia due to chronic blood los*02/09/2021 Ulcerative colitis (HCC) [K51.90] 02/09/2021 Overweight (BMI 25.0-29.9) [E66.3] 05/11/2021 Moderate episode of recurrent major depressive *12/21/2021 Immunocompromised state due to drug therapy (HC*06/21/2022 History of iron deficiency anemia [Z86.2] 08/01/2022 04/03/2023 History of depression [Z86.59] 08/01/2022 Patient request for diagnostic testing [Z01.89] 08/01/2022 04/03/2023 B12 deficiency [E53.8] 09/04/2022 Rh negative state in antepartum period [O26.899*09/05/2022 04/29/2023 Abnormal glucose complicating [O99.81*12/30/2022 04/03/2023 Elevated liver enzymes [R74.8] 04/25/2024 Encounter Status:Closed by KAROLINA YU on 09/30/24 Normal [facility] [address] ABD/PEL W IVCONon -18-[address] ABD/PEL W IVCON * * *Final Report* * * DATE OF EXAM: Sep 24 2024 3:27PM [facility] 0530 - CT ABD/PEL W IVCON / PROCEDURE REASON: multiple diagnoses * * * * Physician Interpretation * * * * EXAMINATION: CT ABDOMEN AND PELVIS WITH IV CONTRAST CLINICAL HISTORY: Ulcerative pancolitis TECHNIQUE: CT of the abdomen and pelvis was performed using standard technique, scanning from just above the dome of the diaphragm to the symphysis pubis. MQ: CTAP_3 Contrast: IV: 90 ml of Omnipaque 350 Oral: 10 ml of Omni 240 10-25ml diluted with water CT Radiation dose: Integrated Dose-length product (DLP) for this visit = 278 mGy*cm. CT Dose Reduction Employed: Automated exposure control(AEC) and iterative recon COMPARISON: None. RESULT: Liver: No mass. Diffuse hepatic steatosis Biliary: No bile duct dilation. Gallbladder is unremarkable. Spleen: No mass. No splenomegaly. Pancreas: Atrophic distal body and tail. No mass or duct dilation. Adrenals: No mass. Kidneys: No mass, calculus or hydronephrosis. GI tract: * Diffuse wall thickening and edema adjacent pericolonic inflammatory stranding and engorgement vasa recta involving the entirety of the colon and rectum. There are multiple adjacent prominent mesenteric lymph nodes. * No dilation Lymph nodes: No abdominal or pelvic lymphadenopathy. Mesentery/Peritoneum: No ascites or mass. Retroperitoneum: No mass. Vasculature: - Abdominal aorta and iliac arteries: Atherosclerotic calcifications without aneurysm. - Celiac and SMA: Atherosclerotic calcifications at the origins. - Portal venous system (SMV, splenic vein, portal vein and branches): Patent. - Hepatic veins: Patent. Pelvis: Small volume pelvic free fluid. No pelvic lymphadenopathy or mass. Bones/Soft Tissues: No significant finding. Lower thorax: Unremarkable. Localizer images: No additional findings. IMPRESSION: Findings consistent with active pancolitis, including diffuse colonic wall thickening, pericolonic stranding, and prominent vasa recta. No pneumatosis, free air, or megacolon. ISN STAFF MESSAGE RESULTS Acuity: ISN Staff Message Result COMMUNICATION: The ordering provider will be notified of the results via Epic staff message or phone message by [employer] within 2 business days of report finalization. Supply Chain Business Analyst: PSCEmil Transcribe Date/Time: Sep 24 2024 4:25P Dictated by : ISAC GARCIA MD This examination was interpreted and the report reviewed and electronically signed by: ISAC GARCIA MD on Sep 24 2024 4:34PM EST [id number] Normal [facility] CT Abdomen and Pelvis W cont rast Flor 09-24-2024 IMPRESSION: Findings consistent with active pancolitis, including diffuse colonic wall thickening, pericolonic stranding, and prominent vasa recta. No pneumatosis, free air, or megacolon. ISN STAFF MESSAGE RESULTS Acuity: ISN Staff Message Result COMMUNICATION: The ordering provider will be notified of the results via Epic staff message or phone message by [employer] within 2 business days of report finalization. Supply Chain Business Analyst: SUNITA Transcribe Date/Time: Sep 24 2024 4:25P Dictated by : ISAC GARCIA MD This examination was interpreted and the report reviewed and electronically signed by: ISAC GARCIA MD on Sep 24 2024 4:34PM [facility] DIV[facility] OF RADIOLOGY * * *Final Report* * * DATE OF EXAM: Sep 24 2024 3:27PM [facility] 0530 - CT ABD/PEL W IVCON / PROCEDURE REASON: multiple diagnoses * * * * Physician Interpretation * * * * EXAMINATION: CT ABDOMEN AND PELVIS WITH IV CONTRAST CLINICAL HISTORY: Ulcerative pancolitis TECHNIQUE: CT of the abdomen and pelvis was performed using standard technique, scanning from just above the dome of the diaphragm to the symphysis pubis. MQ: CTAP_3 Contrast: IV: 90 ml of Omnipaque 350 Oral: 10 ml of Omni 240 10-25ml diluted with water CT Radiation dose: Integrated Dose-length product (DLP) for this visit = 278 mGy*cm. CT Dose Reduction Employed: Automated exposure control(AEC) and iterative recon COMPARISON: None. RESULT: Liver: No mass. Diffuse hepatic steatosis Biliary: No bile duct dilation. Gallbladder is unremarkable. Spleen: No mass. No splenomegaly. Pancreas: Atrophic distal body and tail. No mass or duct dilation. Adrenals: No mass. Kidneys: No mass, calculus or hydronephrosis. GI tract: * Diffuse wall thickening and edema adjacent pericolonic inflammatory stranding and engorgement vasa recta involving the entirety of the colon and rectum. There are multiple adjacent prominent mesenteric lymph nodes. * No dilation Lymph nodes: No abdominal or pelvic lymphadenopathy. Mesentery/Peritoneum: No ascites or mass. Retroperitoneum: No mass. Vasculature: - Abdominal aorta and iliac arteries: Atherosclerotic calcifications without aneurysm. - Celiac and SMA: Atherosclerotic calcifications at the origins. - Portal venous system (SMV, splenic vein, portal vein and branches): Patent. - Hepatic veins: Patent. Pelvis: Small volume pelvic free fluid. No pelvic lymphadenopathy or mass. Bones/Soft Tissues: No significant finding. Lower thorax: Unremarkable. Localizer images: No additional findings. DIVISION OF RADIOLOGY Provider, [facility] - 09/24/2024 * * *Final Report* * * DATE OF EXAM: Sep 24 2024 3:27PM [facility] 0530 - CT ABD/PEL W IVCON / PROCEDURE REASON: multiple diagnoses * * * * Physician Interpretation * * * * EXAMINATION: CT ABDOMEN AND PELVIS WITH IV CONTRAST CLINICAL HISTORY: Ulcerative pancolitis TECHNIQUE: CT of the abdomen and pelvis was performed using standard technique, scanning from just above the dome of the diaphragm to the symphysis pubis. MQ: CTAP_3 Contrast: IV: 90 ml of Omnipaque 350 Oral: 10 ml of Omni 240 10-25ml diluted with water CT Radiation dose: Integrated Dose-length product (DLP) for this visit = 278 mGy*cm. CT Dose Reduction Employed: Automated exposure control(AEC) and iterative recon COMPARISON: None. RESULT: Liver: No mass. Diffuse hepatic steatosis Biliary: No bile duct dilation. Gallbladder is unremarkable. Spleen: No mass. No splenomegaly. Pancreas: Atrophic distal body and tail. No mass or duct dilation. Adrenals: No mass. Kidneys: No mass, calculus or hydronephrosis. GI tract: * Diffuse wall thickening and edema adjacent pericolonic inflammatory stranding and engorgement vasa recta involving the entirety of the colon and rectum. There are multiple adjacent prominent mesenteric lymph nodes. * No dilation Lymph nodes: No abdominal or pelvic lymphadenopathy. Mesentery/Peritoneum: No ascites or mass. Retroperitoneum: No mass. Vasculature: - Abdominal aorta and iliac arteries: Atherosclerotic calcifications without aneurysm. - Celiac and SMA: Atherosclerotic calcifications at the origins. - Portal venous system (SMV, splenic vein, portal vein and branches): Patent. - Hepatic veins: Patent. Pelvis: Small volume pelvic free fluid. No pelvic lymphadenopathy or mass. Bones/Soft Tissues: No significant finding. Lower thorax: Unremarkable. Localizer images: No additional findings. IMPRESSION IMPRESSION: Findings consistent with active pancolitis, including diffuse colonic wall thickening, pericolonic stranding, and prominent vasa recta. No pneumatosis, free air, or megacolon. ISN STAFF MESSAGE RESULTS Acuity: ISN Staff Message Result COMMUNICATION: The ordering provider will be notified of the results via [employer] staff message or phone message by [employer] within 2 business days of report finalization. Supply Chain Business Analyst: PSC[employer] Transcribe Date/Time: Sep 24 2024 4:25P Dictated by : ISAC GARCIA MD This examination was interpreted and the report reviewed and electronically signed by: ISAC GARCIA MD on Sep 24 2024 4:34PM EST [facility] Radiology Study observation (narrative) [facility] CT Abdomen and Pelvis W cont rast IVOrdered By: Ccf Provider on 09-24-2024 [facility] CBC W Auto Differential pane l (Bld)on 09-23-2024 Basophils (Bld) [#/Vol] 0.05 10*3/uL Normal <0.11 [facility] Comment on above: Order Comment: Speci men Type: BLOOD SPECIMEN Ordering Facility: [facility] Address: [address] [place] [address] Performed By: #### 2 4323-8, 6-3, 45041-2 #### [facility] CLIA [id number] [address] [place] [address] [place] Basophils/100 WBC (Bld) 0.4 % Normal [facility] Comment on above: Order Comment: Speci men Type: BLOOD SPECIMEN Ordering Facility: [facility] Address: [address] [place] [address] Performed By: #### 2 4323-8, 6-3, 42533-9 #### [facility] CLIA [id number] [address] [place] [address] [place] Differential cell count method Nom (Bld) Auto Normal [facility] Comment on above: Order Comment: Speci men Type: BLOOD SPECIMEN Ordering Facility: [facility] Address: [address] [place] [address] Performed By: #### 2 4323-8, 3016-3, 92399-0 #### [facility] CLIA [id number] [address] [place] [address] [place] Eosinophils (Bld) [#/Vol] 0.05 10*3/uL Normal <0.46 [facility] Comment on above: Order Comment: Speci men Type: BLOOD SPECIMEN Ordering Facility: [facility] Address: [address] [place] [address] Performed By: #### 2 4323-8, 3015-3, 39035-5 #### [facility] CLIA [id number] [address] [place] [address] [place] Eosinophils/100 WBC (Bld) 0.4 % Normal [facility] Comment on above: Order Comment: Speci men Type: BLOOD SPECIMEN Ordering Facility: [facility] Address: [address] [place] [address] Performed By: #### 2 4323-8, 3, #### [facility] CLIA [id number] [address] [place] [address] [place] Erythrocyte distribution width (RBC) [Ratio] 13.6 % Normal 11.5-15.0 [facility] Comment on above: Order Comment: Speci men Type: BLOOD SPECIMEN Ordering Facility: [facility] Address: [address] [place] [address] Performed By: #### 2 4323-8, 3, #### [facility] CLIA [id number] [address] [place] [address] [place] Hematocrit (Bld) [Volume fraction] 33.3 % Low 36.0-46.0 [facility] Comment on above: Order Comment: Speci men Type: BLOOD SPECIMEN Ordering Facility: [facility] Address: [address] [place] [address] Performed By: #### 2 4323-8, 3, 37283-3 #### [facility] CLIA [id number] [address] [place] [address] [place] Hemoglobin (Bld) [Mass/Vol] 10.5 g/dL Low 11.5-15.5 [facility] Comment on above: Order Comment: Speci men Type: BLOOD SPECIMEN Ordering Facility: [facility] Address: [address] [place] [address] Performed By: #### 2 4323-8, 3016-3, 34669-1 #### [facility] CLIA [id number] [address] [place] [address] [place] Immature granulocytes (Bld) [#/Vol] 0.06 10*3/uL Normal <0.10 [facility] Comment on above: Order Comment: Speci men Type: BLOOD SPECIMEN Ordering Facility: [facility] Address: [address] [place] [address] Performed By: #### 2 4323-8, 3016-3, 81227-3 #### [facility] CLIA [id number] [address] [place] [address] [place] Immature granulocytes/100 WBC (Bld) 0.5 % Normal [facility] Comment on above: Order Comment: Speci men Type: BLOOD SPECIMEN Ordering Facility: [facility] Address: [address] [place] [address] Performed By: #### 2 4323-8, 3, 70106-0 #### [facility] CLIA [id number] [address] [place] [address] [place] Lymphocytes (Bld) [#/Vol] 3.17 10*3/uL Normal 1.00-4.00 [facility] Comment on above: Order Comment: Speci men Type: BLOOD SPECIMEN Ordering Facility: [facility] Address: [address] [place] [address] Performed By: #### 2 4323-8, 3, 47867-7 #### [facility] CLIA [id number] [address] [place] [address] [place] Lymphocytes/100 WBC (Bld) 25.5 % Normal [facility] Comment on above: Order Comment: Speci men Type: BLOOD SPECIMEN Ordering Facility: [facility] Address: [address] [place] [address] Performed By: #### 2 4323-8, 3015-3, 68032-2 #### [facility] CLIA [id number] [address] [place] [address] [place] MCH (RBC) [Entitic mass] 29.6 pg Normal 26.0-34.0 [facility] Comment on above: Order Comment: Speci men Type: BLOOD SPECIMEN Ordering Facility: [facility] Address: [address] [place] [address] Performed By: #### 2 4323-8, 3015-3, 27403-9 #### [facility] CLIA [id number] [address] [place] [address] [place] MCHC (RBC) [Mass/Vol] 31.5 g/dL Normal 30.5-36.0 [facility] Comment on above: Order Comment: Speci men Type: BLOOD SPECIMEN Ordering Facility: [facility] Address: [address] [place] [address] Performed By: #### 2 4323-8, 3, 17695-0 #### [facility] CLIA [id number] [address] [place] [address] [place] MCV (RBC) [Entitic vol] 93.8 fL Normal 80.0-100.0 [facility] Comment on above: Order Comment: Speci men Type: BLOOD SPECIMEN Ordering Facility: [facility] Address: [address] [place] [address] Performed By: #### 2 4323-8, 3015-3, 80534-5 #### [facility] CLIA [id number] [address] [place] [address] [place] Monocytes (Bld) [#/Vol] 0.96 10*3/uL High <0.87 [facility] Comment on above: Order Comment: Speci men Type: BLOOD SPECIMEN Ordering Facility: [facility] Address: [address] [place] [address] Performed By: #### 2 4323-8, 6-3, 62602-5 #### [facility] CLIA [id number] [address] [place] [address] [place] Monocytes/100 WBC (Bld) 7.7 % Normal [facility] Comment on above: Order Comment: Speci men Type: BLOOD SPECIMEN Ordering Facility: [facility] Address: [address] [place] [address] Performed By: #### 2 4323-8, 6-3, 43695-6 #### [facility] CLIA [id number] [address] [place] [address] [place] Neutrophils (Bld) [#/Vol] 8.15 10*3/uL High 1.45-7.50 [facility] Comment on above: Order Comment: Speci men Type: BLOOD SPECIMEN Ordering Facility: [facility] Address: [address] [place] [address] Performed By: #### 2 4323-8, 3015-3, 53651-9 #### [facility] CLIA [id number] [address] [place] [address] [place] Neutrophils/100 WBC (Bld) 65.5 % Normal [facility] Comment on above: Order Comment: Speci men Type: BLOOD SPECIMEN Ordering Facility: [facility] Address: [address] [place] [address] Performed By: #### 2 4323-8, 3015-3, 98764-4 #### [facility] CLIA [id number] [address] [place] [address] [place] Nucleated RBC (Bld) [#/Vol] 10*3/uL Normal <0.01 [facility] Comment on above: Order Comment: Speci men Type: BLOOD SPECIMEN Ordering Facility: [facility] Address: [address] [place] [address] Performed By: #### 2 4323-8, 3016-3, 26896-9 #### [facility] CLIA [id number] [address] [place] [address] [place] Nucleated RBC/100 WBC (Bld) [Ratio] 0.0 /100 WBC Normal [facility] Comment on above: Order Comment: Speci men Type: BLOOD SPECIMEN Ordering Facility: [facility] Address: [address] [place] [address] Performed By: #### 2 4323-8, 3016-3, 43236-9 #### [facility] CLIA [id number] [address] [place] [address] [place] Platelet mean volume (Bld) [Entitic vol] 9.2 fL Normal 9.0-12.7 [facility] Comment on above: Order Comment: Speci men Type: BLOOD SPECIMEN Ordering Facility: [facility] Address: [address] [place] [address] Performed By: #### 2 4323-8, 6-3, 05615-4 #### [facility] CLIA [id number] [address] [place] [address] [place] Platelets (Bld) [#/Vol] 624 10*3/uL High 150-400 [facility] Comment on above: Order Comment: Speci men Type: BLOOD SPECIMEN Ordering Facility: [facility] Address: [address] [place] [address] Performed By: #### 2 4323-8, 3016-3, 01810-9 #### [facility] CLIA [id number] [address] [place] [address] [place] RBC (Bld) [#/Vol] 3.55 10*6/uL Low 3.90-5.20 [facility] Comment on above: Order Comment: Speci men Type: BLOOD SPECIMEN Ordering Facility: [facility] Address: [address] [place] [address] Performed By: #### 2 4323-8, 3016-3, 90095-1 #### [facility] CLIA [id number] [address] [place] [address] [place] WBC (Bld) [#/Vol] 12.44 10*3/uL High 3.70-11.00 [facility] Comment on above: Order Comment: Speci men Type: BLOOD SPECIMEN Ordering Facility: [facility] Address: [address] [place] [address] Performed By: #### 2 4323-8, 3016-3, 76357-1 #### [facility] CLIA [id number] [address] [place] [address] [place] CRP SerPl-ncon 09-23-2024 CRP [Mass/Vol] 0.6 mg/dL Normal <0.9 [facility] Comment on above: Order Comment: Speci men Type: BLOOD SPECIMENOrdering Facility: [facility] Address: [address] [place] [address] Performed By: #### 1 988-5, 2276-4, 42237-5, 81660-3 ####[facility] [id number] [place] [address] [place] Comprehensive metabolic 2000 panelon 09-23-2024 Albumin [Mass/Vol] 2.2 g/dL Low 3.9-4.9 [facility] Comment on above: Order Comment: Speci men Type: BLOOD SPECIMENOrdering Facility: [facility] Address: [address] [place] [address] Performed By: #### 1 988-5, 2276-4, 72935-4, 89026-5 ####[facility] [id number] [place] [address] [place] ALP [Catalytic activity/Vol] 168 U/L High 34-123 [facility] Comment on above: Order Comment: Speci men Type: BLOOD SPECIMENOrdering Facility: [facility] Address: [address] [place] [address] Performed By: #### 1 988-5, 6-4, 31671-6, 85220-2 ####[facility] [id number] [place] [id number] [place] ALT [Catalytic activity/Vol] 11 U/L Normal 7-38 [facility] Comment on above: Order Comment: Speci men Type: BLOOD SPECIMENOrdering Facility: [facility] Address: [address] [place] [address] Performed By: #### 1 988-5, 2276-4, 49158-5, 29709-8 ####[facility] [id number] [place] [address] [place] Anion gap [Moles/Vol] 11 mmol/L Normal 8-15 [facility] Comment on above: Order Comment: Speci men Type: BLOOD SPECIMENOrdering Facility: [facility] Address: [address] [place] [address] Performed By: #### 1 988-5, 6-4, 25002-8, 40819-1 ####[facility] [id number] [place] [address] [place] AST [Catalytic activity/Vol] 22 U/L Normal 13-35 [facility] Comment on above: Order Comment: Speci men Type: BLOOD SPECIMENOrdering Facility: [facility] Address: [address] [place] [address] Performed By: #### 1 988-5, 2276-4, 07477-9, 81486-1 ####[facility] [id number] [address] [address] [place] Bilirubin [Mass/Vol] mg/dL Low 0.2-1.3 [facility] Comment on above: Order Comment: Speci men Type: BLOOD SPECIMENOrdering Facility: [facility] Address: [address] [place], [place] [address] Result Comment: Resu lt rechecked. Performed By: #### 1 988-5, 2276-4, 33509-7, 50089-6 ####[facility] [id number] [facility] [address] [address] [place] Calcium [Mass/Vol] 8.2 mg/dL Low 8.5-10.2 [facility] Comment on above: Order Comment: Speci men Type: BLOOD SPECIMENOrdering Facility: [facility] Address: [address] [place], [place] [address] Performed By: #### 1 988-5, 2276-4, 99865-1, ####[facility] [id number] [address] [address] [place] Chloride [Moles/Vol] 101 mmol/L Normal 98-107 [facility] Comment on above: Order Comment: Speci men Type: BLOOD SPECIMENOrdering Facility: [facility] Address: [address] [place], [place] [address] Performed By: #### 1 988-5, 2276-4, 86466-3, ####[facility] [id number] [address] [address] [place] CO2 [Moles/Vol] 27 mmol/L Normal 22-30 [facility] Comment on above: Order Comment: Speci men Type: BLOOD SPECIMENOrdering Facility: [facility] Address: [address] [place] [address] Performed By: #### 1 988-5, 2276-4, 87226-2, 44431-5 ####[facility] [id number] [facility] [place] [id number] [address] [place] Creatinine [Mass/Vol] 0.44 mg/dL Low 0.58-0.96 [facility] Comment on above: Order Comment: Speci men Type: BLOOD SPECIMENOrdering Facility: [facility] Address: [address] [place] [address] Performed By: #### 1 988-5, 2276-4, 88214-3, 16135-9 ####[facility] [id number] [place] [address] [place] eGFRcr SerPlBld CKD-EPI 2020 140 mL/min/1.73m??? Normal >=60 [facility] Comment on above: Order Comment: Sara diaz Type: BLOOD SPECIMENOrdering Facility: [facility] Address: [address] [place] [address] Result Comment: Macy mated Glomerular Filtration Rate (eGFR) is calculated using the 2020 CKD-EPI creatinine equation. This equation utilizes serum creatinine, sex, and age as parameters. The creatinine assay has traceable calibration to isotope dilution-mass spectrometry. Refer to KDIGO guidelines for clinical interpretation. In patients with unstable renal function, e.g. those with acute kidney injury, the eGFR may not accurately reflect actual GFR. Performed By: #### 1 988-5, 2276-4, 89974-1, 01089-9 ####[facility] [id number] [place] [id number] [place] Glucose [Mass/Vol] 58 mg/dL Low 74-99 [facility] Comment on above: Order Comment: Sara diaz Type: BLOOD SPECIMENOrdering Facility: [facility] Address: [address] [place] [address] Result Comment: The [place] Diabetes [employer] (ADA) provides guidance for cutoff values for fasting glucose and random glucose. The ADA defines fasting as no caloric intake for at least 8 hours. Fasting plasma glucose results between 100 to 125 mg/dL indicate increased risk for diabetes (prediabetes). Fasting plasma glucose results greater than or equal to 126 mg/dL meet the criteria for diagnosis of diabetes. In the absence of unequivocal hyperglycemia, results should be confirmed by repeat testing. In a patient with classic symptoms of hyperglycemia or hyperglycemic crisis, random plasma glucose results greater than or equal to 200 mg/dL meet the criteria for diagnosis of diabetes. Reference: Standards of Medical Care in Diabetes 2016, [place] [employer] Association. Diabetes Care. 2016.39(Suppl 1). Performed By: #### 1 988-5, 2276-4, 44258-5, 06294-1 ####[facility] [id number] [facility] [address] [place] [address] [place] Potassium [Moles/Vol] 3.3 mmol/L Low 3.7-5.1 [facility] Comment on above: Order Comment: Speci men Type: BLOOD SPECIMENOrdering Facility: [facility] Address: [address] [place] [address] Performed By: #### 1 988-5, 2276-4, 57354-1, ####[facility] [id number] [facility] [address] [address] [place] Protein [Mass/Vol] 5.1 g/dL Low 6.3-8.0 [facility] Comment on above: Order Comment: Speci men Type: BLOOD SPECIMENOrdering Facility: [facility] Address: [address] [place], [place] [address] Performed By: #### 1 988-5, 2276-4, 50605-1, ####[facility] [id number] [address] [place] [address] [place] Sodium [Moles/Vol] 139 mmol/L Normal 136-144 [facility] Comment on above: Order Comment: Speci men Type: BLOOD SPECIMENOrdering Facility: [facility] Address: [address] [place] [address] Performed By: #### 1 988-5, 2276-4, 08756-2, 13826-8 ####[facility] [id number] [facility] [address] [place] [address] [place] Urea nitrogen [Mass/Vol] 4 mg/dL Low 7-21 [facility] Comment on above: Order Comment: Speci men Type: BLOOD SPECIMENOrdering Facility: [facility] Address: [address] [place], [place] [address] Performed By: #### 1 988-5, 6-4, 71829-7, 68185-4 ####[facility] [id number] [address] [address] [place] [facility] Ferritin [Mass/Vol] 67.5 ng/mL Normal 14.7-205.1 [facility] Comment on above: Order Comment: Speci men Type: BLOOD SPECIMENOrdering Facility: [facility] Address: [address] [place] [address] Performed By: #### 1 988-5, 6-4, 17141-1, 47666-1 ####[facility] [id number] [place] [address] [place] Iron and Iron binding capaci [facility] 09-23-2024 Iron [Mass/Vol] 68 ug/dL Normal 41-186 [facility] Comment on above: Order Comment: Speci men Type: BLOOD SPECIMENOrdering Facility: [facility] Address: [address] [place] [address] Performed By: #### 1 988-5, 6-4, 21428-6, 65405-3 ####[facility] [id number] [place] [id number] [place] Iron binding capacity [Mass/Vol] 172 ug/dL Low 232-386 [facility] Comment on above: Order Comment: Speci men Type: BLOOD SPECIMENOrdering Facility: [facility] Address: [address] [place] [address] Performed By: #### 1 988-5, 6-4, 21737-2, 92786-0 ####[facility] [id number] [place] [address] [place] Iron/TIBC [Molar ratio] 39.5 % Normal 15.0-57.0 [facility] Comment on above: Order Comment: Speci men Type: BLOOD SPECIMENOrdering Facility: [facility] Address: [address] [place] [address] Performed By: #### 1 988-5, 2276-4, 29474-7, 69853-0 ####[facility] [id number] [place] [address] [place] Vit B12 SerPl-ncon 17-2 025 Cobalamin (Vitamin B12) [Mass/Vol] 1231 pg/mL Normal 232-1245 [facility] Comment on above: Order Comment: Speci men Type: BLOOD SPECIMEN Ordering Facility: [facility] Address: [address] [place] [address] Performed By: #### 2 4323-8, 3016-3, 57187-3 #### [facility] CLIA [id number] [address] [place] [address] [place] CNOVon 09-17-2024 CNOV Office Visit ([facility]ST[facility] ) ----- RADHA BARNES ([id number]) 2 F Date Time Provider Department 09/17/24 10:55 AM KAROLINA YU GSTNOR During your visit today, we recorded the following information about you: Pulse Blood pressure Weight Height 148/minute 118/76 45.4 kg 1.549 m Karolina Yu, 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.HAMMER SMITH 09/17/2024 11:54 AM Signed CHIEF COMPLAINT: Patient presents with: Ulcerative pancolitis: Complains of weight loss FARIDA Polo Cameron is a 24 year old female here today for Ulcerative pancolitis (Complains of weight loss). She was last seen by Sonja Sarmiento PA-c 03/31/24. She was (+) for c.diff at that time and was started on vancomycin 125mg QID x 10 days. There was discussion about starting biologic again after treated for c.diff. Currently: She has lost 42 pounds since she was last seen in 04/2024. Since taking the vancomycin for c.diff in 04/2024, she has not felt well and feels things have worsened. She was having nausea. She has an appetite, but continues to have weight loss. (+) weakness, fatigue. She has a hx of MORGAN and has received iron infusions. No current abdominal pain, but she has been having intermittent pain BM's are loose with occasional blood. Going 5-20 times a day (worst at night). (-) EIM of IBD Last colonoscopy was 2020. Current Outpatient Medications Medication Sig ferrous sulfate (FEOSOL) 325 mg (65 mg iron) tablet Take 1 tablet by mouth once daily. levonorgestrel (MIRENA) 21 mcg/24 hours (8 yrs) 52 mg IUD 1 Each by INTRAUTERINE route as directed. potassium chloride 20 mEq TbER Take 1 tablet by mouth every 12 hours. ondansetron orally disintegrating (ZOFRAN ODT) 4 mg disintegrating tablet Take 1 tablet by mouth every 8 hours as needed for nausea/vomiting. cyanocobalamin 1,000 mcg/mL 1cc I'm weekly x 4 weeks then 1cc monthly (Patient not taking: Reported on 06/08/2024) folic acid 1 mg tablet Take 1 tablet by mouth once daily. No current facility-administered medications for this visit. ALLERGIES No Known Allergies Social History Tobacco Use Smoking status: Never Smokeless tobacco: Never Vaping Use Vaping status: Never Used Substance Use Topics Alcohol use: Not Currently Comment: occasional Drug use: No PAST MEDICAL HISTORY Diagnosis Date Anxiety and depression Childhood overweight, BMI 85-94.9 percentile 08/2015 Iron deficiency anemia Iron deficiency anemia due to chronic blood loss 02/09/2021 Menarche 01/2013 PMH - PAST MEDICAL HISTORY OF 10/15/2006 normal color vision depression Ulcerative colitis (HCC) elevated liver enzymes PAST SURGICAL HISTORY Procedure Laterality Date CAPSULE ENDOSCOPY SMALL BOWEL 01/25/2021 COLONOSCOPY GEN ANES 12/08/2020 EGD 12/08/2020 UNLISTED DIAGNOSTIC GASTROENTEROLOGY PROCEDURE 01/25/2021 FAMILY HISTORY Problem Relation Age of Onset Hypertension Mother other (gluten intolerance) Mother Skin Cancer Mother Hypertension Father Heart Sister murmur as an Heart Maternal Grandmother Diabetes Maternal Grandmother Hypertension Maternal Grandfather Heart Maternal Grandfather 60s other (Bladder cancer) Maternal Grandfather smoker Heart Paternal Grandmother Hypertension Paternal Grandmother Hypertension Paternal Grandfather Heart Paternal Grandfather age 52 [place]; adn MGGF REVIEW OF SYSTEMS Review of Systems Gastrointestinal: Positive for abdominal pain and diarrhea. All other systems reviewed and are negative. PHYSICAL EXAM BP 118/76 Pulse 148 Ht 5' 1 (1.55m) Wt 100 lb (45.4kg) SpO2 97% LMP 03/21/2024 BMI 18.90 kg/(m2). Physical Exam Vitals and nursing note reviewed. Constitutional: Appearance: Normal appearance. She is normal weight. Eyes: General: No scleral icterus. Cardiovascular: Rate and Rhythm: Tachycardia present. Pulmonary: Breath sounds: Normal breath sounds. Abdominal: General: Abdomen is flat. Bowel sounds are normal. Palpations: Abdomen is soft. Tenderness: There is abdominal tenderness in the left lower quadrant. There is no guarding or rebound. Skin: General: Skin is warm and dry. Coloration: Skin is pale. Neurological: Mental Status: She is alert and oriented to person, place, and time. Psychiatric: Mood and Affect: Mood normal. Behavior: Behavior normal. Thought Content: Thought content normal. Judgment: Judgment normal. ASSESSMENT: (K51.011) Ulcerative pancolitis with rectal bleeding (HCC) (primary encounter diagnosis) (R63.4) Unintentional weight loss (D64.9) Anemia, unspecified type 1. Ulcerative pancolitis with rectal bleeding (HCC) (Primary) - Ongoing diarrhea, weight loss, fatigue. Plan for updated colonoscopy and blood work. She will need biologic, and would prefer infusion. - may need steroids if not scheduled soon for scopes. - EGD DIAGNOSTIC; Future - COLONOSCOP (more content not included)... Normal [facility] CNOVon 06-22-2024 CNOV Office Visit (WADS ) ----- RADHA BARNES ([id number]) 2 F Date Time Provider Department 06/22/24 11:20 AM CHERELLE HANDLEY During your visit today, we recorded the following information about you: Pulse Blood pressure Weight Height 110/minute 124/83 53.9 kg 1.549 m Cherelle Handley APRN.HAMMER SMITH 06/22/2024 12:57 PM Signed This note was created using NoteWriter. Subjective Radha Barnes is a 24 year old female. Patient presents with: Establish Care Here for feeling unwell. Wants to est care here History of UC, recent cdiff infection and chronic iron def anemia. States she started to feel ill while taking abx for cdiff in apr Was in [place] ER on 06/08 and had low potassium. Was given 15 days of potassium supplements. Has follow up with GI on 07/26 Was advised to start biologic medication for her UC Also due for repeat colonoscopy. Supposed to have iron infusions through hematology but states she only complete 2 out of 5 as she was too fatigued to go get them done. Some sob with exertion and chest tightness at times Water intake is about 2-3 bottles of water daily Having diarrhea daily, 10-15 times per day The history is provided by the patient. No language assistant was used. Review of Systems Constitutional: Positive for fatigue. Negative for appetite change, chills, diaphoresis and fever. HENT: Negative for tinnitus. Eyes: Negative for photophobia and visual disturbance. Respiratory: Positive for chest tightness. Negative for cough, shortness of breath and wheezing. Cardiovascular: Negative for chest pain, palpitations and leg swelling. Gastrointestinal: Positive for diarrhea. Negative for abdominal distention, abdominal pain, anal bleeding, blood in stool, constipation, nausea and vomiting. Genitourinary: Negative. Musculoskeletal: Negative for myalgias. Skin: Negative for rash. Neurological: Positive for dizziness, weakness and light-headedness. Negative for syncope, numbness and headaches. Psychiatric/Behavioral: Negative for dysphoric mood, self-injury, sleep disturbance and suicidal ideas. The patient is not nervous/anxious. All other systems reviewed and are negative. Objective BP 124/83 Pulse 110 Ht 154.9 cm (5' 1) Wt 53.9 kg (118 lb 13.3 oz) LMP 03/21/2024 (Exact Date) SpO2 97% BMI 22.45 kg/m? PAST MEDICAL HISTORY Diagnosis Date Anxiety and depression Childhood overweight, BMI 85-94.9 percentile 08/2015 Iron deficiency anemia Iron deficiency anemia due to chronic blood loss 02/09/2021 Menarche 01/2013 PMH - PAST MEDICAL HISTORY OF 10/15/2006 normal color vision depression Ulcerative colitis (HCC) elevated liver enzymes PAST SURGICAL HISTORY Procedure Laterality Date CAPSULE ENDOSCOPY SMALL BOWEL 01/25/2021 COLONOSCOPY GEN ANES 12/08/2020 EGD 12/08/2020 UNLISTED DIAGNOSTIC GASTROENTEROLOGY PROCEDURE 01/25/2021 Current Outpatient Medications on File Prior to Visit Medication Sig ondansetron orally disintegrating (ZOFRAN ODT) 4 mg disintegrating tablet Take 1 tablet by mouth every 8 hours as needed for nausea/vomiting. Syringe with Needle, Disp, 1 mL 25 gauge x 1 syrg Use to inject B12 1 time a week for 4 weeks then once monthly (Patient not taking: Reported on 06/08/2024) cyanocobalamin 1,000 mcg/mL 1cc I'm weekly x 4 weeks then 1cc monthly (Patient not taking: Reported on 06/08/2024) folic acid 1 mg tablet Take 1 tablet by mouth once daily. ferrous sulfate (FEOSOL) 325 mg (65 mg iron) tablet Take 1 tablet by mouth once daily. dicyclomine (BENTYL) 10 mg capsule Take 1 capsule by mouth three times a day as needed. (Patient not taking: Reported on 06/08/2024) sertraline (ZOLOFT) 100 mg tablet Take 1 tablet by mouth once daily. (Patient not taking: Reported on 06/08/2024) levonorgestrel (MIRENA) 21 mcg/24 hours (8 yrs) 52 mg IUD 1 Each by INTRAUTERINE route as directed. No current facility-administered medications on file prior to visit. ALLERGIES No Known Allergies Physical Exam Vitals and nursing note reviewed. Constitutional: General: She is awake. She is not in acute distress. Appearance: Normal appearance. She is well-developed, well-groomed and normal weight. She is not ill-appearing. HENT: Head: Normocephalic. Eyes: Conjunctiva/sclera: Conjunctivae normal. Pupils: Pupils are equal, round, and reactive to light. Cardiovascular: Rate and Rhythm: Normal rate and regular rhythm. Pulses: Normal pulses. Heart sounds: Normal heart sounds. Pulmonary: Effort: Pulmonary effort is normal. No respiratory distress. Breath sounds: Normal breath sounds. No decreased air movement. No decreased breath sounds or wheezing. Musculoskeletal: General: No swelling, tenderness or signs of injury. Normal range of motion. Cervical back: Full passive range of motion without pain, normal range of motion and (more content not included)... Normal [facility] Comprehensive metabolic 2000 panelon 06-22-2024 Albumin [Mass/Vol] 2.6 g/dL Low 3.9-4.9 [facility] Comment on above: Order Comment: Speci joe Type: BLOOD SPECIMEN Ordering Facility: [facility] Address: [address] [place] [address] Performed By: #### 2 4323-8, 3016-3, 96493-3 #### [facility] CLIA [id number] [address] [place] [address] [place] ALP [Catalytic activity/Vol] 183 U/L High 34-123 [facility] Comment on above: Order Comment: Sara diaz Type: BLOOD SPECIMEN Ordering Facility: [facility] Address: [address] [place] [address] Performed By: #### 2 4323-8, 6-3, 46209-0 #### [facility] CLIA [id number] [address] [place] [address] [place] ALT [Catalytic activity/Vol] 13 U/L Normal 7-38 [facility] Comment on above: Order Comment: Speci men Type: BLOOD SPECIMEN Ordering Facility: [facility] Address: [address] [place] [address] Performed By: #### 2 4323-8, 3016-3, 36494-4 #### [facility] CLIA [id number] [address] [place] [address] [place] Anion gap [Moles/Vol] 10 mmol/L Normal 8-15 [facility] Comment on above: Order Comment: Speci men Type: BLOOD SPECIMEN Ordering Facility: [facility] Address: [address] [place] [address] Performed By: #### 2 4323-8, 3015-3, 70939-2 #### [facility] CLIA [id number] [address] [place] [address] [place] AST [Catalytic activity/Vol] 29 U/L Normal 13-35 [facility] Comment on above: Order Comment: Speci men Type: BLOOD SPECIMEN Ordering Facility: [facility] Address: [address] [place] [address] Performed By: #### 2 4323-8, 3015-3, 19112-4 #### [facility] CLIA [id number] [address] [place] [address] [place] Bilirubin [Mass/Vol] 0.4 mg/dL Normal 0.2-1.3 [facility] Comment on above: Order Comment: Speci men Type: BLOOD SPECIMEN Ordering Facility: [facility] Address: [address] [place] [address] Performed By: #### 2 4323-8, 3, 08989-9 #### [facility] CLIA [id number] [address] [place] [address] [place] Calcium [Mass/Vol] 8.0 mg/dL Low 8.5-10.2 [facility] Comment on above: Order Comment: Speci men Type: BLOOD SPECIMEN Ordering Facility: [facility] Address: [address] [place] [id number] Performed By: #### 2 4323-8, 3, 94398-2 #### [facility] CLIA [id number] [address] [place] [id number] [place] Chloride [Moles/Vol] 100 mmol/L Normal 98-107 [facility] Comment on above: Order Comment: Speci men Type: BLOOD SPECIMEN Ordering Facility: [facility] Address: [address] [place] [address] Performed By: #### 2 4323-8, 3016-3, 63147-2 #### [facility] CLIA [id number] [address] [place] [address] [place] CO2 [Moles/Vol] 27 mmol/L Normal 22-30 [facility] Comment on above: Order Comment: Speci men Type: BLOOD SPECIMEN Ordering Facility: [facility] Address: [address] [place] [address] Performed By: #### 2 4323-8, 3016-3, 79220-7 #### [facility] CLIA [id number] [address] [place] [address] [place] Creatinine [Mass/Vol] 0.50 mg/dL Low 0.58-0.96 [facility] Comment on above: Order Comment: Speci men Type: BLOOD SPECIMEN Ordering Facility: [facility] Address: [address] [place] [address] Performed By: #### 2 4323-8, 6-3, 41836-8 #### [facility] CLIA [id number] [address] [place] [address] [place] Creatinine and Glomerular filtration rate.predicted panel (S/P/Bld) 135 mL/min/1.73m??? Normal >=60 [facility] Comment on above: Order Comment: Speci men Type: BLOOD SPECIMEN Ordering Facility: [facility] Address: [address] [place] [address] Result Comment: Macy mated Glomerular Filtration Rate (eGFR) is calculated using the 2020 CKD-EPI creatinine equation. This equation utilizes serum creatinine, sex, and age as parameters. The creatinine assay has traceable calibration to isotope dilution-mass spectrometry. Refer to KDIGO guidelines for clinical interpretation. In patients with unstable renal function, e.g. those with acute kidney injury, the eGFR may not accurately reflect actual GFR. Performed By: #### 2 4323-8, 6-3, 21339-3 #### [facility] CLIA [id number] [address] [place] [address] [place] Glucose [Mass/Vol] 88 mg/dL Normal 74-99 [facility] Comment on above: Order Comment: Sara diaz Type: BLOOD SPECIMEN Ordering Facility: [facility] Address: [address] [place] [address] Result Comment: The [place] Diabetes [employer] (ADA) provides guidance for cutoff values for fasting glucose and random glucose. The ADA defines fasting as no caloric intake for at least 8 hours. Fasting plasma glucose results between 100 to 125 mg/dL indicate increased risk for diabetes (prediabetes). Fasting plasma glucose results greater than or equal to 126 mg/dL meet the criteria for diagnosis of diabetes. In the absence of unequivocal hyperglycemia, results should be confirmed by repeat testing. In a patient with classic symptoms of hyperglycemia or hyperglycemic crisis, random plasma glucose results greater than or equal to 200 mg/dL meet the criteria for diagnosis of diabetes. Reference: Standards of Medical Care in Diabetes 2016, [place] [employer]. Diabetes Care. 2016.39(Suppl 1). Performed By: #### 2 4323-8, 6-3, 65044-1 #### [facility] CLIA [id number] [address] [place] [address] [place] Potassium [Moles/Vol] 4.0 mmol/L Normal 3.7-5.1 [facility] Comment on above: Order Comment: Sara diaz Type: BLOOD SPECIMEN Ordering Facility: [facility] Address: [address] [place] [address] Performed By: #### 2 4323-8, 3016-3, 76118-6 #### [facility] CLIA [id number] [address] [place] [address] [place] Protein [Mass/Vol] 6.1 g/dL Low 6.3-8.0 [facility] Comment on above: Order Comment: Sara diaz Type: BLOOD SPECIMEN Ordering Facility: [facility] Address: [address] [place] [address] Performed By: #### 2 4323-8, 3016-3, 17104-3 #### [facility] CLIA [id number] [address] [place] [address] [place] Sodium [Moles/Vol] 137 mmol/L Normal 136-144 [facility] Comment on above: Order Comment: Speci men Type: BLOOD SPECIMEN Ordering Facility: [facility] Address: [address] [place] [address] Performed By: #### 2 4323-8, 3016-3, 77847-5 #### [facility] CLIA [id number] [address] [place] [address] [place] Urea nitrogen [Mass/Vol] 3 mg/dL Low 7-21 [facility] Comment on above: Order Comment: Speci men Type: BLOOD SPECIMEN Ordering Facility: [facility] Address: [address] [place] [address] Performed By: #### 2 4323-8, 6-3, 62304-9 #### [facility] CLIA [id number] [address] [place] [address] [place] Iron and Iron binding capaci ty panelon 06-22-2024 Iron [Mass/Vol] 124 ug/dL Normal 41-186 [facility] Comment on above: Order Comment: Speci men Type: BLOOD SPECIMEN Ordering Facility: [facility] Address: [address] [place] [address] Performed By: #### 2 4323-8, 6-3, 34568-5 #### [facility] CLIA [id number] [address] [place] [address] [place] Iron binding capacity [Mass/Vol] 142 ug/dL Low 232-386 [facility] Comment on above: Order Comment: Speci men Type: BLOOD SPECIMEN Ordering Facility: [facility] Address: [address] [place] [address] Performed By: #### 2 4323-8, 3016-3, 22171-5 #### [facility] CLIA [id number] [address] [place] [address] [place] Iron/TIBC [Molar ratio] 87.3 % High 15.0-57.0 [facility] Comment on above: Order Comment: Speci men Type: BLOOD SPECIMEN Ordering Facility: [facility] Address: [address] [place] [address] Performed By: #### 2 4323-8, 3016-3, 76774-5 #### [facility] CLIA [id number] [address] [place] [address] [place] Absolute neutrophil countOrd ered By: Dustin Burkett on 06-08-2024 Neutrophils (Bld) [#/Vol] 8.1 10*3/uL High 2.0-7.7 [facility] Anion gap in Serum or Plasma Ordered By: Dustin Burkett on 06-08-2024 Anion gap [Moles/Vol] 12 mmol/L 5-15 [facility] BUN/creatinine ratioOrdered By: Dustin Burkett on 06-08-2024 Urea nitrogen/Creatinine [Mass ratio] 4.2 mg/mg Low 10- [facility] Comment on above: Previous reported re sult: 4.0 RATIOEdited by: JESUS on 06/08/24:1105 AMENDED REPORT 06/08/24 1105 BUN/CRE previously reported as: 4.0 L RATIO Basic Metabolic Profile (BMP )on 06-08-2024 BUN/CRE 4.2 RATIO Low 10-20 [facility] Comment on above: Result Comment: AMENDED REPORT 06/08/24 1105 BUN/CRE previously reported as: 4.0 L RATIO Performed By: #### L 500.2500, BTS, L100.0100 #### [facility] [address] [place], [address] Basophil percentageOrdered B y: Dustin Burkett on 06-08-2024 Basophils/100 WBC (Bld) 0.3 % 0-1 [facility] CBC W/Diff, Automatedon 04-0 Anisocytosis Ql (Bld) 2+ Normal [facility] Comment on above: Performed By: #### L 500.2500, BTS, L100.0100 #### [facility] [address] [place], [address] HYPOCHROMASIA 1+ Normal [facility] Comment on above: Performed By: #### L 500.2500, BTS, L100.0100 #### [facility] [address] [place], [address] SMEAR COMMENT SCANNED Normal [facility] Comment on above: Performed By: #### L 500.2500, BTS, L100.0100 #### [facility] [address] [place], [place], [address] CNOVon 06-08-2024 CNOV Office Visit (UCWSTR ) ----- CAMERONRADHA Polo ([id number]) 2 F Date Time Provider Department 06/08/24 8:15 AM TOMASZ CHILDS WSTR During your visit today, we recorded the following information about you: Temperature Pulse Respiration Blood pressure 97.7 degrees 128/minute 18/minute 110/78 Weight 56.5 kg Tomasz Childs APRN.CNP 06/08/2024 12:09 PM Signed [facility] Subjective HPI HPI Radha Polo Cameron is a 23 year old female who presents today for CC of vomiting on off for 6 weeks, has felt like passing out. Seen by pcp and gi without diagnosis. Symptoms are worsened by nothing specific. Risk factors has hx of UC and recently had cdif infection. Denies possibility of being . .Patient presents with: Vomiting: Vomiting off and on x 6-7 weeks PAST MEDICAL HISTORY Diagnosis Date Anxiety and depression Childhood overweight, BMI 85-94.9 percentile 08/2015 Iron deficiency anemia Iron deficiency anemia due to chronic blood loss 02/09/2021 Menarche 01/2013 PMH - PAST MEDICAL HISTORY OF 10/15/2006 normal color vision depression Ulcerative colitis (HCC) elevated liver enzymes PAST SURGICAL HISTORY Procedure Laterality Date CAPSULE ENDOSCOPY SMALL BOWEL 01/25/2021 COLONOSCOPY GEN ANES 12/08/2020 EGD 12/08/2020 UNLISTED DIAGNOSTIC GASTROENTEROLOGY PROCEDURE 01/25/2021 ALLERGIES Patient has no known allergies. MEDICATIONS ondansetron orally disintegrating (ZOFRAN ODT) 4 mg disintegrating tablet Take 1 tablet by mouth every 8 hours as needed for nausea/vomiting. levonorgestrel (MIRENA) 21 mcg/24 hours (8 yrs) 52 mg IUD 1 Each by INTRAUTERINE route as directed. Syringe with Needle, Disp, 1 mL 25 gauge x 1 syrg Use to inject B12 1 time a week for 4 weeks then once monthly (Patient not taking: Reported on 06/08/2024) cyanocobalamin 1,000 mcg/mL 1cc I'm weekly x 4 weeks then 1cc monthly (Patient not taking: Reported on 06/08/2024) folic acid 1 mg tablet Take 1 tablet by mouth once daily. ferrous sulfate (FEOSOL) 325 mg (65 mg iron) tablet Take 1 tablet by mouth once daily. dicyclomine (BENTYL) 10 mg capsule Take 1 capsule by mouth three times a day as needed. (Patient not taking: Reported on 06/08/2024) sertraline (ZOLOFT) 100 mg tablet Take 1 tablet by mouth once daily. (Patient not taking: Reported on 06/08/2024) FAMILY HISTORY Problem Relation Age of Onset Hypertension Mother other (gluten intolerance) Mother Skin Cancer Mother Hypertension Father Heart Sister murmur as an infant Heart Maternal Grandmother Diabetes Maternal Grandmother Hypertension Maternal Grandfather Heart Maternal Grandfather 60s other (Bladder cancer) Maternal Grandfather smoker Heart Paternal Grandmother Hypertension Paternal Grandmother Hypertension Paternal Grandfather Heart Paternal Grandfather age 52 [place]; adn MGGF Social History Tobacco Use Smoking status: Never Smokeless tobacco: Never Vaping Use Vaping status: Never Used Substance Use Topics Alcohol use: Not Currently Comment: occasional Drug use: No Review of Systems Objective BP 110/78 Pulse (!) 128 Temp 36.5 ?C (97.7 ?F) (Tympanic) Resp 18 Wt 56.5 kg (124 lb 9 oz) LMP 03/21/2024 (Exact Date) SpO2 99% BMI 22.78 kg/m? Physical Exam Constitutional: General: She is not in acute distress. Appearance: Normal appearance. She is not toxic-appearing. Cardiovascular: Rate and Rhythm: Regular rhythm. Tachycardia present. Heart sounds: Normal heart sounds. Pulmonary: Effort: Pulmonary effort is normal. Breath sounds: Normal breath sounds. Abdominal: General: Bowel sounds are normal. Palpations: Abdomen is soft. Tenderness: There is generalized abdominal tenderness (mild). Skin: General: Skin is warm and dry. {ASSESSMENT/PLAN: 1. Vomiting, unspecified vomiting type, unspecified whether nausea present - ICD9: 787.03, ICD10: R11.10 (primary diagnosis) Will refer to ER Declines squad Unclear what hospital will go to at this time. 2. Syncope, unspecified syncope type - ICD9: 780.2, ICD10: R55 As above. Tomasz Childs APRN.HAMMER SMITH History and Record Review External record(s) reviewed: prior outpatient record. Disposition The patient was discharged. Transfer to ED was considered. Reason for not transferring: Procedures Allergies As of Date: 06/08/2024 (No Known Allergies) Date Reviewed: 06/08/2024 Reviewed by: Elle Daniels LPN - Fully Assessed Reason for Visit: Vomiting [120] Cmt: Vomiting off and on x 6-7 weeks Primary Visit Diagnosis:Vomiting, unspecified vomiting type, unspecified whether nausea present [R11.10] Other Visit Diagnosis:Syncope, unspecified syncope type [R55] Prescriptions as of 06/08/2024 - ondansetron orally disintegrating (ZOFRAN ODT) 4 mg disintegrating tablet Take 1 tablet by mouth every 8 hours as ne (more content not included)... Normal [facility] Carbon dioxide, total [Moles /volume] in Central venous bloodOrdered By: Dustin Burkett on 06-08-2024 CO2 [Moles/Vol] 28.4 mmol/L 21.0-32.0 [facility] Chloride assayOrdered By: Vince Burkett on 06-08-2024 Chloride [Moles/Vol] 97 mmol/L Low 98-108 [facility] Emergency Department Summary on 06-08-2024 Emergency Department Summary [facility] Medical Records Department [address] [place] [address] Emergency Department Summary 06/08/24 MR#: [id number] Acct: [id number] Name: RADHA BARNES Rep #: [id number] : 2000 23 From: Dustin Burkett MD PCP: Dr. Ruben Moyer, DO Status:REG ER Location: ED HPI HPI - GI History of Present Illness Chief Complaint: Abd Pain Informant: patient Narrative Narrative: 23-year-old female presenting with fatigue and persistent diarrhea. She has ulcerative colitis, follows with a senior sql developer of [place], [place]. She states that her oral medication regimen was not controlling her UC, so her GI specialist had her stop her medication and tested her for C. difficile which was positive, and initiated treatment for that. However the patient stopped the treatment prior to finishing it because she was not tolerating it well and/or feeling very poorly, this was 6 or 7 weeks ago. She states that she had an episode of near syncope couple weeks ago, but has had no lightheadedness or recurrent episodes since then. She states she just picked up her collection kit to retest herself for C. difficile, and if and when she test negative, the plan is to start IV infusion/Biologics for her UC. In the past week, she states she has actually been feeling a little better. However, she states family told her this morning she looked pale and they did not want her driving to work because the last time she had a near syncopal episode she was driving, so the patient went to urgent care but since her heart rate was a little elevated, they sent her here to the ER. Patient states she has had poor appetite and fluid intake related to all of this. She states her urine has been a little dark in the last and amount in the last 2 days, and although she has been feeling better in the last week, with doing activities she tires out very quickly but does not become lightheaded or near syncopal. [facility] Medical History Laceration, obstetrical, first degree Care and examination of lactating mother (spontaneous vaginal delivery) 40 weeks gestation of Shortness of breath Palpitations Tachycardia Iron deficiency anemia Anxiety and depression Ulcerative colitis Home Medications ???Medication ???Instructions ???Recorded ???Last Taken ???Type sertraline 100 mg tablet 100 mg PO DAILY 01/18/24 Unknown H istory potassium chloride 20 mEq 20 meq PO BID #30 tabs 06/08/24 Un known Rx tablet,extended release Allergy/AdvReac Type Severity Reaction Status Date / Time No Known Allergies Allergy Verified 06/08/24 08:40 Family History (Updated 10/25/22 @ 11:16 by Carol Ann Fountain) Mother Hypertension Gluten intolerance Father Hypertension Sister Heart murmur Grandmother Heart disease Diabetes Grandfather Hypertension Heart disease Cancer Grandmother Heart disease Hypertension Grandfather Myocardial infarction, Onset Age: 52 Surgical History History of esophagogastroduodenoscop y (EGD) History of colonoscopy Social History Smoking Status: Never smoker alcohol intake: never substance use type: does not use ROS ROS ED Constitutional Constitutional ED: Reports anorexia, fatigue and weight loss; Denies chills or fever(s) Eyes Eyes: Denies change in vision or diplopia ENT ENT ED: Denies rhinorrhea or sore throat Cardiovascular Cardiovascular: Denies chest pain, lightheadedness, palpitations or syncope Respiratory/Chest Respiratory/Chest: Denies cough or dyspnea Gastrointestinal Gastrointestinal: Reports diarrhea and hematochezia; Denies abdominal pain, nausea or vomiting Genitourinary Genitourinary ED: Denies dysuria or hematuria Musculoskeletal Musculoskeletal: Denies back pain or neck pain Integumentary Denies abscess or rash Neurologic Neurologic: Denies headache(s), paresthesias or weakness Psychiatric Psychiatric: Denies anxiety or suicidal thoughts EXAM Physical Exam Const Vital Signs: 06/08/24 08:41 06/08/24 09:54 Temperature 98.4 F Temperature Source Oral Pulse Rate 118 H Pulse Rate [Lying] 96 Pulse Rate [Sitting (for 1 minute prior to obtaining)] 101 H Pulse Rate [Standing (for 1 minute prior to obtaining)] 104 H Respiratory Rate 18 Blood Pressure 131/93 H Blood Pressure [Lying] 112/71 Blood Pressure [Sitting (for 1 minute prior to obtaining)] 102/73 Blood Pressure Mean 105 Blood Pressure Mean [Lying] 84 Blood Pressure Mean [Sitting (for 1 minute prior to obtaining)] 82 Pulse Ox 98 Oxygen Delivery Method Room Air Positive well nourished and well developed General Appearan (more content not included)... Normal [facility] Eosinophil percentageOrdered By: Dustin Burkett on 06-08-2024 Eosinophils/100 WBC (Bld) 0.2 % 0-5 [facility] Erythrocyte distribution wid th (RBC) [Entitic vol]Ordered By: Dustin Burkett on 06-08-2024 RDW [facility] Comment on above: Test not performed Erythrocyte distribution wid th (RBC) [Ratio]Ordered By: Dustin Burkett on 06-08-2024 RDW Coefficient of Variation [facility] Comment on above: Test not performed Estimation of creatinine rosemary aranceOrdered By: Dustin Burkett on 06-08-2024 Estimated Creatinine Clearance Calc 123.31 ml/min 50-250 [facility] GFR/1.73 sq M.predicted navdeep g non-blacks MDRD (S/P/Bld) [Vol rate/Area]Ordered By: Dustin Burkett on 06-08-2024 Estimated GFR (MDRD) Non-Af Amer 133 >60 [facility] Comment on above: mL/min/1.73m2 CKD-EP I Creatinine Equation (2020) Hematocrit Auto (Bld) [Volum e fraction]Ordered By: Dustin Burkett on 06-08-2024 Hematocrit (Bld) [Volume fraction] 35.9 % Low 37-47 [facility] Hemoglobin measurementOrdere d By: Dustin Burkett on 06-08-2024 Hemoglobin (Bld) [Mass/Vol] 11.5 g/dL Low 12.0-15.0 [facility] Hypochromia Ql (Bld)Ordered By: Dustin Burkett on 06-08-2024 Hypochromasia 1+ [facility] Immature granulocytes/100 WB C Auto (Bld)Ordered By: Dustin Burkett on 06-08-2024 Immature granulocytes/100 WBC (Bld) 0.500 % 0.0-0.9 [facility] Comment on above: IG% - Immature Granu locytes (promyelocytes, myelocytes and metamyelocytes) > 1% indicates that a LEFT SHIFT is Present. Laboratory - Hematology and Cell countsOrdered By: Dustin Burkett on 06-08-2024 Anisocytosis Ql (Bld) 2+ [facility] Lymphocytes Auto (Unsp spec) [#/Vol]Ordered By: Dustin Burkett on 06-08-2024 Lymphocytes (Bld) [#/Vol] 2.11 10*3/uL 0.83-4.51 [facility] Lymphocytes/100 WBC Auto (Un sp spec)Ordered By: Dustin Burkett on 06-08-2024 Lymphocytes/100 WBC (Bld) 19.4 % 19-41 [facility] MCV (mean corpuscular volume ) determinationOrdered By: Dustin Burkett on 06-08-2024 MCV (RBC) [Entitic vol] 86.1 fL 81-99 [facility] Manual differential comment Jorge (Bld) [Interp]Ordered By: Dustin Burkett on 06-08-2024 Differential Comment SCANNED [facility] Mean corpuscular hemoglobin (MCH) determinationOrdered By: Dustin Burkett on 06-08-2024 MCH (RBC) [Entitic mass] 27.6 pg 27.0-32.0 [facility] Mean corpuscular hemoglobin concentration (MCHC) determinationOrdered By: Dustin Burkett on 06-08-2024 MCHC (RBC) [Mass/Vol] 32.0 g/dL 32-36 [facility] Mean platelet volume determi nationOrdered By: Dustin Burkett on 06-08-2024 Platelet mean volume (Bld) [Entitic vol] 8.9 fL 6.2-12.0 [facility] Monocyte percentageOrdered B y: Dustin Burkett on 06-08-2024 Monocytes/100 WBC (Bld) 5.1 % 0-10 [facility] Neutrophil percentageOrdered By: Dustin Burkett on 06-08-2024 Neutrophils/100 WBC (Bld) 74.5 % High 47-70 [facility] Nucleated red blood cell per centageOrdered By: Dustin Burkett on 06-08-2024 Nucleated RBC/100 WBC (Bld) [Ratio] 0 % 0-5 [facility] Platelet countOrdered By: Vince Burkett on 06-08-2024 Platelets (Bld) [#/Vol] 443 10*3/uL 150-450 [facility] Potassium (Unsp spec) [Mass/ Vol]Ordered By: Dustin Burkett on 06-08-2024 Potassium [Moles/Vol] 2.9 mmol/L Low 3.3-5.1 [facility] Comment on above: Hemolysis present, R esults could be affected. RBC Auto (Bld) [#/Vol]Ordere d By: Dustin Burkett on 06-08-2024 RBC (Bld) [#/Vol] 4.17 10*6/uL Low 4.2-5.4 [facility] Serum creatinine measurement (mass/volume)Ordered By: Dustin Burkett on 06-08-2024 Creatinine [Mass/Vol] 0.54 mg/dL Low 0.70-1.20 [facility] Serum glucose measurement (m ass/volume)Ordered By: Dustin Burkett on 06-08-2024 Glucose [Mass/Vol] 88 mg/dL 70-99 [facility] Serum or plasma calcium gerda urement (mass/volume)Ordered By: Dustin Burkett on 06-08-2024 Calcium [Mass/Vol] 8.2 mg/dL 7.6-11.0 [facility] Serum or plasma urea nitroge n measurement (mass/volume)Ordered By: Dustin Burkett on 06-08-2024 Urea nitrogen [Mass/Vol] 2 mg/dL Low 4-19 [facility] Sodium levelOrdered By: Tyrel Burkett on 06-08-2024 Sodium [Moles/Vol] 137 mmol/L 133-145 [facility] Type AND Screenon 06-08-2024 ABO and Rh group Nom (Bld) Blood group O Rh(D) negative Normal [facility] Comment on above: Order Comment: HGI Performed By: #### L 500.2500, BTS, L100.0100 #### [facility] Laboratory [address] [place], [address] White blood cell (WBC) count Ordered By: Dustin Burkett on 06-08-2024 WBC (Bld) [#/Vol] 10.9 10*3/uL 4.4-11.0 [facility] C[facility] Telephone ([place]) ----- CAMERONRADHA Christ ([id number]) 2 F Date Time Provider Department 05/10/24 EDWINA URIBE During your visit today, we recorded the following information about you: Edwina Uribe LISW 05/10/2024 10:17 AM Signed Pt noted on [facility] 1st time treatment report. Pt has a non-oncology regimen. No social work follow up indicated. CUAUHTEMOC Cooper-S Allergies As of Date: 05/10/2024 (No Known Allergies) Date Reviewed: 04/23/2024 Reviewed by: Kris Ferrer, NOELLE - Fully Assessed Reason for Visit: Social Work Services [507] Prescriptions as of 05/10/2024 - Syringe with Needle, Disp, 1 mL 25 gauge x 1 syrg Use to inject B12 1 time a week for 4 weeks then once monthly - cyanocobalamin 1,000 mcg/mL 1cc I'm weekly x 4 weeks then 1cc monthly - folic acid 1 mg tablet Take 1 tablet by mouth once daily. - ferrous sulfate (FEOSOL) 325 mg (65 mg iron) tablet Take 1 tablet by mouth once daily. - dicyclomine (BENTYL) 10 mg capsule Take 1 capsule by mouth three times a day as needed. - sertraline (ZOLOFT) 100 mg tablet Take 1 tablet by mouth once daily. - levonorgestrel (MIRENA) 21 mcg/24 hours (8 yrs) 52 mg IUD 1 Each by INTRAUTERINE route as directed. Problem List As Of Date 05/10/2024 Noted Resolved Childhood overweight, BMI 85-94.9 percentile [E*08/24/2015 05/11/2021 Generalized anxiety disorder [F41.1] 06/01/2020 Iron deficiency anemia due to chronic blood los*02/09/2021 Ulcerative colitis (HCC) [K51.90] 02/09/2021 Overweight (BMI 25.0-29.9) [E66.3] 05/11/2021 Moderate episode of recurrent major depressive *12/21/2021 Immunocompromised state due to drug therapy (HC*06/21/2022 History of iron deficiency anemia [Z86.2] 08/01/2022 04/03/2023 History of depression [Z86.59] 08/01/2022 Patient request for diagnostic testing [Z01.89] 08/01/2022 04/03/2023 B12 deficiency [E53.8] 09/04/2022 Rh negative state in antepartum period [O26.899*09/05/2022 04/29/2023 Abnormal glucose complicating [O99.81*12/30/2022 04/03/2023 Elevated liver enzymes [R74.8] 04/25/2024 Encounter Status:Closed by EDWINA URIBE [facility] ANCA [facility] ([place]) ----- RADHA BARNES ([id number]) 2 F Date Time Provider Department 05/05/24 EVELYNE EVANGELISTA During your visit today, we recorded the following information about you: Sonja Solis, RN 05/05/2024 9:48 AM Signed Pt has not been in for iron infusions due to illness. Left VM requesting a return call. She is scheduled tomorrow but has missed all previously scheduled infusions due to this illness. If she returns call, can we see if she's coming tomorrow? Either way, we will have to adjust her schedule. Thank you! MarinaEdith iyeromi 05/05/2024 10:41 AM Signed LVM for pt to call back and let us know about her infusion tomorrow and rescheduling missed appts. Sonja Cartagena, NOELLE 05/10/2024 10:33 AM Signed Can we try and contact pt again? She canceled on Friday and is currently scheduled for tomorrow. Thank you. Stan DavidHailey 05/10/2024 2:37 PM Signed I called and left a voicemail for Radha to call back on her mobile phone. The number listed under home phone just rang and stated that the voicemail has not been set up at this time. Hailey Pierce David Grayjaylon Ana Paula 05/14/2024 10:16 AM Signed She is scheduled for 05/17 and 05/19. Ana Paula Cortez Allergies As of Date: 05/05/2024 (No Known Allergies) Date Reviewed: 04/23/2024 Reviewed by: Kris Ferrer, NOELLE - Fully Assessed Reason for Visit: Appointment [186] Prescriptions as of 05/14/2024 - Syringe with Needle, Disp, 1 mL 25 gauge x 1 syrg Use to inject B12 1 time a week for 4 weeks then once monthly - cyanocobalamin 1,000 mcg/mL 1cc I'm weekly x 4 weeks then 1cc monthly - folic acid 1 mg tablet Take 1 tablet by mouth once daily. - ferrous sulfate (FEOSOL) 325 mg (65 mg iron) tablet Take 1 tablet by mouth once daily. - dicyclomine (BENTYL) 10 mg capsule Take 1 capsule by mouth three times a day as needed. - sertraline (ZOLOFT) 100 mg tablet Take 1 tablet by mouth once daily. - levonorgestrel (MIRENA) 21 mcg/24 hours (8 yrs) 52 mg IUD 1 Each by INTRAUTERINE route as directed. Problem List As Of Date 05/05/2024 Noted Resolved Childhood overweight, BMI 85-94.9 percentile [E*08/24/2015 05/11/2021 Generalized anxiety disorder [F41.1] 06/01/2020 Iron deficiency anemia due to chronic blood los*02/09/2021 Ulcerative colitis (HCC) [K51.90] 02/09/2021 Overweight (BMI 25.0-29.9) [E66.3] 05/11/2021 Moderate episode of recurrent major depressive *12/21/2021 Immunocompromised state due to drug therapy (HC*06/21/2022 History of iron deficiency anemia [Z86.2] 08/01/2022 04/03/2023 History of depression [Z86.59] 08/01/2022 Patient request for diagnostic testing [Z01.89] 08/01/2022 04/03/2023 B12 deficiency [E53.8] 09/04/2022 Rh negative state in antepartum period [O26.899*09/05/2022 04/29/2023 Abnormal glucose complicating [O99.81*12/30/2022 04/03/2023 Elevated liver enzymes [R74.8] 04/25/2024 Encounter Status:Closed by ANA PAULA CORTEZ on 05/14/24 [facility] Michelle 04-27-2024 [facility] ([place] ----- RADHA BARNES ([id number]) 2 F Date Time Provider Department 04/27/24 EVELYNE EVANGELISTA During your visit today, we recorded the following information about you: Sonja Solis RN 04/27/2024 9:13 AM Signed Pt + for C. Diff. Pt advised to delay today's iron treatment until end of cycle to allow 48hrs of Vancomycin. Contacted pt, she is aware to schedule additional dose of iron when here on . OK per [place]. Simi Hart 04/27/2024 2:46 PM Signed Added to 04/29 appointment notes Allergies As of Date: 04/27/2024 (No Known Allergies) Date Reviewed: 04/23/2024 Reviewed by: Kris Ferrer RN - Fully Assessed Reason for Visit: Patient Update [1234] Prescriptions as of 05/06/2024 - vancomycin (VANCOCIN) 125 mg capsule Take 1 capsule by mouth four times daily for 10 days. - Syringe with Needle, Disp, 1 mL 25 gauge x 1 syrg Use to inject B12 1 time a week for 4 weeks then once monthly - cyanocobalamin 1,000 mcg/mL 1cc I'm weekly x 4 weeks then 1cc monthly - folic acid 1 mg tablet Take 1 tablet by mouth once daily. - ferrous sulfate (FEOSOL) 325 mg (65 mg iron) tablet Take 1 tablet by mouth once daily. - dicyclomine (BENTYL) 10 mg capsule Take 1 capsule by mouth three times a day as needed. - sertraline (ZOLOFT) 100 mg tablet Take 1 tablet by mouth once daily. - levonorgestrel (MIRENA) 21 mcg/24 hours (8 yrs) 52 mg IUD 1 Each by INTRAUTERINE route as directed. Problem List As Of Date 04/27/2024 Noted Resolved Childhood overweight, BMI 85-94.9 percentile [E*08/24/2015 05/11/2021 Generalized anxiety disorder [F41.1] 06/01/2020 Iron deficiency anemia due to chronic blood los*02/09/2021 Ulcerative colitis (HCC) [K51.90] 02/09/2021 Overweight (BMI 25.0-29.9) [E66.3] 05/11/2021 Moderate episode of recurrent major depressive *12/21/2021 Immunocompromised state due to drug therapy (HC*06/21/2022 History of iron deficiency anemia [Z86.2] 08/01/2022 04/03/2023 History of depression [Z86.59] 08/01/2022 Patient request for diagnostic testing [Z01.89] 08/01/2022 04/03/2023 B12 deficiency [E53.8] 09/04/2022 Rh negative state in antepartum period [O26.899*09/05/2022 04/29/2023 Abnormal glucose complicating [O99.81*12/30/2022 04/03/2023 Elevated liver enzymes [R74.8] 04/25/2024 Encounter Status:Closed by SONJA SOLIS on 05/06/24 Normal [facility] C diff Tox gens Stl Ql MICHELE+p robeon 04-26-2024 C. difficile toxin genes MICHELE+probe Ql (Stl) Positive Abnormal Negative for C. difficile toxin by PCR [facility] Comment on above: Order Comment: Sara diaz Type: STOOL SPECIMEN Ordering Facility: [facility] Address: [address] [place] [address] Result Comment: A po sitive PCR result may indicate C.difficile infection or colonization. The positive predictive value of this test for C.difficile infection is highest for patients with clinically significant diarrhea (>=3 unformed stools in 24h) who do not have an alternative explanation (e.g., recent receipt of laxatives). Toxin EIA testing will also be performed as recommended by IDSA clinical practice guidelines for institutions without pre-agreed criteria for specimen submission. Performed By: #### 3 8445-3 #### [facility] CLIA [id number] [address] [place] [address] [place] CLOSTRIDIUM DIFFICILE TOXIN BY EIAon 04-26-2024 C. difficile toxin A+B IA Ql (Stl) Not detected Normal Negative for C. difficile toxin [facility] Comment on above: Order Comment: Sara diaz Type: STOOL SPECIMEN Ordering Facility: [facility] Address: [address] [place] [address] Result Comment: Toxi n EIA is less sensitive than cell cytotoxin and PCR assays. Clinical correlation of PCR positive/toxin EIA negative results is required to distinguish C. difficle colonization from disease. Performed By: #### 3 8445-3 #### [facility] CLIA [id number] [address] [place] [address] [place] Calprotectin (Stl) [Mass/Mas s]on 04-26-2024 CALPROTECTIN, FECAL INTERP Elevated Abnormal Normal [facility] Comment on above: Order Comment: Sara diaz Type: STOOL SPECIMEN Ordering Facility: [facility] Address: [address] [place] [address] Result Comment: Inte rpretation: <50.0 ug/g: Normal 50.0 ug/g - 120.0 ug/g: Borderline elevated. Re-evaluation in 4-6 weeks is recommended if clinically indicated. >120.0 ug/g: Elevated Performed By: #### 3 8445-3 #### [facility] CLIA [id number] [address] [place] [address] [place] CALPROTECTIN, FECAL QUANTITATIVE 1070 ug/g High <50 [facility] Comment on above: Order Comment: Speci men Type: STOOL SPECIMEN Ordering Facility: [facility] Address: [address] [place] [address] Performed By: #### 3 8445-3 #### [facility] CLIA [id number] [address] [place] [address] [place] CNOVon 04-20-2024 CNOV Office Visit (UCWSTR ) ----- RADHA MUNGUIA Christ ([id number]) 2 Date Time Provider Department 04/20/24 10:00 AM [facility] During your visit today, we recorded the following information about you: Temperature Pulse Respiration Blood pressure 98.6 degrees 118/minute 16/minute 118/72 Weight 63.5 kg Luis Franklin PA-C 04/20/2024 10:08 AM Signed This note was created using [employer]. Subjective Radha Polo Cameron is a 23 year old female. Patient is a 23-year-old female who complains of congestion and cough that she has been experiencing for the past 1 day. Patient reports mild throat irritation and denies sinus pressure or ear pain. Patient has no history of asthma or COPD and does not smoke. Patient reports no fever, chills or myalgia. 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 Review of Systems HENT: Positive for congestion. Respiratory: Positive for cough. All other systems reviewed and are negative. Objective BP 118/72 Pulse 118 Temp 37 ?C (98.6 ?F) Resp 16 Wt 63.5 kg (139 lb 15.9 oz) LMP 03/21/2024 (Exact Date) SpO2 97% BMI 25.60 kg/m? Physical Exam Vitals and nursing note reviewed. Constitutional: Appearance: Normal appearance. She is normal weight. HENT: Head: Normocephalic and atraumatic. Right Ear: Tympanic membrane, ear canal and external ear normal. Left Ear: Tympanic membrane, ear canal and external ear normal. Nose: Nose normal. Mouth/Throat: Mouth: Mucous membranes are moist. Pharynx: Oropharynx is clear. Eyes: Extraocular Movements: Extraocular movements intact. Conjunctiva/sclera: Conjunctivae normal. Pupils: Pupils are equal, round, and reactive to light. Cardiovascular: Rate and Rhythm: Normal rate and regular rhythm. Pulses: Normal pulses. Heart sounds: Normal heart sounds. Pulmonary: Effort: Pulmonary effort is normal. Breath sounds: Normal breath sounds. Musculoskeletal: Cervical back: Normal range of motion and neck supple. Skin: General: Skin is warm and dry. Capillary Refill: Capillary refill takes less than 2 seconds. Neurological: General: No focal deficit present. Mental Status: She is alert and oriented to person, place, and time. Psychiatric: Mood and Affect: Mood normal. Behavior: Behavior normal. Thought Content: Thought content normal. Judgment: Judgment normal. Assessment and Plan Unremarkable physical exam findings as noted above. Supportive care instructions were discussed and the patient verbalizes excellent understanding of same. CLINICAL IMPRESSION: Acute URI ASSESSMENT/PLAN: 1. Acute URI - ICD9: 465.9, ICD10: J06.9 ANALISA Dangelo-Tish Allergies As of Date: 04/20/2024 (No Known Allergies) Date Reviewed: 04/20/2024 Reviewed by: Simi Kaiser MA - Fully Assessed Reason for Visit: Nasal Congestion [235] Cmt: drainage, sneezing x 4 days, cough and headache x 1 day Primary Visit Diagnosis:Acute URI [J06.9] Prescriptions as of 04/20/2024 - cyanocobalamin 1,000 mcg/mL 1cc I'm weekly x 4 weeks then 1cc monthly - folic acid 1 mg tablet Take 1 tablet by mouth once daily. - ferrous sulfate (FEOSOL) 325 mg (65 mg iron) tablet Take 1 tablet by mouth once daily. - dicyclomine (BENTYL) 10 mg capsule Take 1 capsule by mouth three times a day as needed. - sertraline (ZOLOFT) 100 mg tablet Take 1 tablet by mouth once daily. - levonorgestrel (MIRENA) 21 mcg/24 hours (8 yrs) 52 mg IUD 1 Each by INTRAUTERINE route as directed. Problem List As Of Date 04/20/2024 Noted Resolved Childhood overweight, BMI 85-94.9 percentile [E*08/24/2015 05/11/2021 Generalized anxiety disorder [F41.1] 06/01/2020 Iron deficiency anemia due to chronic blood los*02/09/2021 Ulcerative colitis (HCC) [K51.90] 02/09/2021 Overweight (BMI 25.0-29.9) [E66.3] 05/11/2021 Moderate episode of recurrent major depressive *12/21/2021 Immunocompromised state due to drug therapy (HC*06/21/2022 History of iron deficiency anemia [Z86.2] 08/01/2022 04/03/2023 History of depression [Z86.59] 08/01/2022 Patient request for diagnostic testing [Z01.89] 08/01/2022 04/03/2023 B12 deficiency [E53.8] 09/04/2022 Rh negative state in antepartum period [O26.899*09/05/2022 04/29/2023 Abnormal glucose complicating [O99.81*12/30/2022 04/03/2023 Level of Service: OFFICE/OUTPATIENT [facility] 30 MINUTES [[id number]] Letter Text Encounter Status:Closed by LUIS FRANKLIN on 04/20/24 Normal [facility] Florencia 04-16-2024 CNOV Office Visit (FPDOYL ) ----- RADHA BARNES ([id number]) 2 F Date Time Provider Department 04/16/24 1:15 PM DESIRE MOYER EILEEN During your visit today, we recorded the following information about you: Pulse Blood pressure Weight Height 106/minute 100/60 63.5 kg 1.575 m João Desire Ramirez DO 04/25/2024 7:30 PM Signed [facility] [place] Desire Moyer, [address] [place] [address] Date of Evaluation: 04/16/2024 Patient Name: Radha Barnes : 2000 Chief Complaint: Patient presents with: Follow Up b12: Pt is going to have the injections administered at home by her mother Repeat labs have been ordered by Hemo Anemia: Pt is going to resume iron infusions Ordered by Dr. Evangelista Pt is taking iron po tid and folic acid IUD in place for Menorrhagia Ulcerative Colitis: Following with Gastro Will complete testing prior to restarting Mesalamine Subjective Ms. Barnes is a 23 year old female who presents with the following complaint(s): The history is provided by the patient. Diarrhea This is a chronic problem. The stool consistency is described as Bloody. Pertinent negatives include no headaches and no cough. Her past medical history is significant for inflammatory bowel disease. Past medical history comments: UC. Review of Systems Constitutional: Negative for fatigue and unexpected weight change. HENT: Negative for nosebleeds. Eyes: Negative for redness and visual disturbance. Respiratory: Negative for apnea, cough and shortness of breath. Cardiovascular: Negative for chest pain, palpitations and leg swelling. Gastrointestinal: Positive for diarrhea (chronic). Genitourinary: Negative for hematuria. Neurological: Negative for dizziness, weakness, light-headedness, numbness and headaches. Hematological: Does not bruise/bleed easily. Psychiatric/Behavioral: The patient is not nervous/anxious. PAST MEDICAL HISTORY Diagnosis Date Anxiety and depression Childhood overweight, BMI 85-94.9 percentile 08/2015 Iron deficiency anemia Iron deficiency anemia due to chronic blood loss 02/09/2021 Menarche 01/2013 PMH - PAST MEDICAL HISTORY OF 10/15/2006 normal color vision depression Ulcerative colitis (HCC) elevated liver enzymes PAST SURGICAL HISTORY Procedure Laterality Date CAPSULE ENDOSCOPY SMALL BOWEL 01/25/2021 COLONOSCOPY GEN ANES 12/08/2020 EGD 12/08/2020 UNLISTED DIAGNOSTIC GASTROENTEROLOGY PROCEDURE 01/25/2021 FAMILY HISTORY Problem Relation Age of Onset Hypertension Mother other (gluten intolerance) Mother Skin Cancer Mother Hypertension Father Heart Sister murmur as an Heart Maternal Grandmother Diabetes Maternal Grandmother Hypertension Maternal Grandfather Heart Maternal Grandfather 60s other (Bladder cancer) Maternal Grandfather smoker Heart Paternal Grandmother Hypertension Paternal Grandmother Hypertension Paternal Grandfather Heart Paternal Grandfather age 52 PA; adn MGGF Social History Tobacco Use Smoking status: Never Smokeless tobacco: Never Vaping Use Vaping status: Never Used Substance Use Topics Alcohol use: Not Currently Comment: occasional Drug use: No Current Outpatient Medications Medication Sig cyanocobalamin 1,000 mcg/mL 1cc I'm weekly x 4 weeks then 1cc monthly folic acid 1 mg tablet Take 1 tablet by mouth once daily. ferrous sulfate (FEOSOL) 325 mg (65 mg iron) tablet Take 1 tablet by mouth once daily. dicyclomine (BENTYL) 10 mg capsule Take 1 capsule by mouth three times a day as needed. sertraline (ZOLOFT) 100 mg tablet Take 1 tablet by mouth once daily. levonorgestrel (MIRENA) 21 mcg/24 hours (8 yrs) 52 mg IUD 1 Each by INTRAUTERINE route as directed. No current facility-administered medications for this visit. I have confirmed and edited as necessary the past medical, family and social histories, HPI, and ROS obtained by others. Objective BP 100/60 Pulse 106 Ht 5' 2 (1.58m) Wt 140 lb (63.5kg) SpO2 98% LMP 03/21/2024 BMI 25.60 kg/(m2). Physical Exam Vitals and nursing note reviewed. Constitutional: General: She is not in acute distress. Appearance: Normal appearance. She is well-developed and overweight. She is not ill-appearing. HENT: Head: Normocephalic. Left Ear: External ear normal. Nose: Nose normal. Mouth/Throat: Pharynx: Uvula midline. Eyes: General: Lids are normal. Vision grossly intact. Gaze aligned appropriately. Extraocular Movements: Extraocular movements intact. Conjunctiva/sclera: Conjunctivae normal. Pupils: Pupils are equal, round, and reactive to light. Neck: Thyroid: No thyroid mass, thyromegaly or thyroid tenderness. Trachea: Trachea and phonation normal. Cardiovasc (more content not included)... Normal [facility] CNOVSPon 04-16-2024 CNOVSP Visit (SP) Office (HEMMARCIA) ----- RADHA BARNES ([id number]) 2 F Date Time Provider Department 04/16/24 10:30 AM EVELYNE EVANGELISTA During your visit today, we recorded the following information about you: Temperature Pulse Blood pressure Weight 97.8 degrees 116/minute 115/74 63.7 kg Height 1.575 m Evelyne Evangelista 04/16/2024 2:54 PM Signed aRdha Barnes 2000 04/16/2024 Patient presents today as a referral from PCP for management of MORGAN. She has been seen by Dr. Rico in [facility], however [place] is much closer to home for her. HPI per Dr. Rico HPI: Radha Christ Barnes is a 22 year old female with iron deficiency anemia secondary to ulcerative colitis and menorrhagia. She was referred by Giana Arceo PA-C for evaluation of anemia. She has [...] IV Monoferric 02/23/2021, 03/22/2022. No acute complications. She presents today for follow-up of iron deficiency anemia First , 25W+3, NAJMA in 03/18/2023. Off [...] Ferritin 30.4, transferrin sat 10.8%, B12 260. Interval History: Ms. Barnes presents today as a transfer of care from [facility] for management of MORGAN. She has known hx of UC, for which she is following with GI in [place]. She notes current UC flare, frequent bloody diarrhea, she is not currently on treatment at this time. Previously on humira which was held during . No recent illness, fevers, chills or NS. She denies any SOB, CP. No current abd pain. No changes in urinary habits. She is currently taking PO iron, folate and B12. No significant improvement in iron studies with PO iron. She notes that it does cause her GI upset at time but also slows down her diarrhea. No other supplement use or PO medications. IUD - hormonal Menses is currently pretty light regular monthly cycles. Has a 13 month old. Not currently Tolerated previous IV iron well. No issues with monoferric or iron sucrose. We reviewed her labs and indication for IV iron today. PAST MEDICAL HISTORY Diagnosis Date Anxiety and depression Childhood overweight, BMI 85-94.9 percentile 08/2015 Iron deficiency anemia Iron deficiency anemia due to chronic blood loss 02/09/2021 Menarche 01/2013 PMH - PAST MEDICAL HISTORY OF 10/15/2006 normal color vision depression Ulcerative colitis (HCC) elevated liver enzymes PAST SURGICAL HISTORY Procedure Laterality Date CAPSULE ENDOSCOPY SMALL BOWEL 01/25/2021 COLONOSCOPY GEN ANES 12/08/2020 EGD 12/08/2020 UNLISTED DIAGNOSTIC GASTROENTEROLOGY PROCEDURE 01/25/2021 Current Outpatient Medications Medication Sig Dispense Refill cyanocobalamin 1,000 mcg/mL 1cc I'm weekly x 4 weeks then 1cc monthly 1 Each 11 ferrous sulfate (IRON) 325 mg (65 mg iron) tablet Take 1 tablet by mouth once daily. 30 tablet 5 folic acid 1 mg tablet Take 1 tablet by mouth once daily. 30 tablet 5 dicyclomine (BENTYL) 10 mg capsule Take 1 capsule by mouth three times a day as needed. 90 capsule 1 sertraline (ZOLOFT) 100 mg tablet Take 1 tablet by mouth once daily. 30 tablet 5 levonorgestrel (MIRENA) 21 mcg/24 hours (8 yrs) 52 mg IUD 1 Each by INTRAUTERINE route as directed. 1 Each 0 folic acid 1 mg tablet Take 1 tablet by mouth once daily. 90 tablet 3 ferrous sulfate (FEOSOL) 325 mg (65 mg iron) tablet Take 1 tablet by mouth once daily. 90 tablet 3 No current facility-administered medications for this visit. ALLERGIES No Known Allergies FAMILY HISTORY Problem Relation Age of Onset Hypertension Mother other (gluten intolerance) Mother Skin Cancer Mother Hypertension Father Heart Sister murmur as an infant Heart Maternal Grandmother Diabetes Maternal Grandmother Hypertension Maternal Grandfather Heart Maternal Grandfather 60s other (Bladder cancer) Maternal Grandfather smoker Heart Paternal Grandmother Hypertension Paternal Grandmother Hypertension Paternal Grandfather Heart Paternal Grandfather age 52 PA; adn MGGF Social History Tobacco Use Smoking status: Never Smokeless tobacco: Never Vaping Use Vaping status: Never Used Subst (more content not included)... Normal [facility] Michelle 04-09-2024 ANCA Telephone (ISRAEL) ----- RADHA BARNES ([id number]) 2 F Date Time Provider Department 04/09/24 EVELYNE EVANGELISTA During your visit today, we recorded the following information about you: Simi Hart 04/09/2024 3:25 PM Signed An appointment for 04/16 that was scheduled with Judy has been canceled. Appointment was scheduled from outside of [place] office. Judy does not see new patients. Message was left on patient's cell vm to return call and reschedule with Evelyne. Please use hematology referral and add Anemia to appointment notes. Simi Hart 04/12/2024 1:07 PM Signed Scheduled correctly with patient Allergies As of Date: 04/09/2024 (No Known Allergies) Date Reviewed: 03/31/2024 Reviewed by: Sonja Sarmiento PA-C - Fully Assessed Reason for Visit: New Patient [172] Prescriptions as of 04/12/2024 - cyanocobalamin 1,000 mcg/mL 1cc I'm weekly x 4 weeks then 1cc monthly - folic acid 1 mg tablet Take 1 tablet by mouth once daily. - ferrous sulfate (FEOSOL) 325 mg (65 mg iron) tablet Take 1 tablet by mouth once daily. - ferrous sulfate (IRON) 325 mg (65 mg iron) tablet Take 1 tablet by mouth once daily. - folic acid 1 mg tablet Take 1 tablet by mouth once daily. - dicyclomine (BENTYL) 10 mg capsule Take 1 capsule by mouth three times a day as needed. - sertraline (ZOLOFT) 100 mg tablet Take 1 tablet by mouth once daily. - levonorgestrel (MIRENA) 21 mcg/24 hours (8 yrs) 52 mg IUD 1 Each by INTRAUTERINE route as directed. Problem List As Of Date 04/09/2024 Noted Resolved Childhood overweight, BMI 85-94.9 percentile [E*08/24/2015 05/11/2021 Generalized anxiety disorder [F41.1] 06/01/2020 Iron deficiency anemia due to chronic blood los*02/09/2021 Ulcerative colitis (HCC) [K51.90] 02/09/2021 Overweight (BMI 25.0-29.9) [E66.3] 05/11/2021 Moderate episode of recurrent major depressive *12/21/2021 Immunocompromised state due to drug therapy (HC*06/21/2022 History of iron deficiency anemia [Z86.2] 08/01/2022 04/03/2023 History of depression [Z86.59] 08/01/2022 Patient request for diagnostic testing [Z01.89] 08/01/2022 04/03/2023 B12 deficiency [E53.8] 09/04/2022 Rh negative state in antepartum period [O26.899*09/05/2022 04/29/2023 Abnormal glucose complicating [O99.81*12/30/2022 04/03/2023 Encounter Status:Closed by SIMI HART on 04/12/24 Normal [facility] CNPNon 04-05-2024 CNPN Telephone (FPDOYL) ----- RADHA BARNES ([id number]) 2 F Date Time Provider Department 04/05/24 DESIRE MOYER During your visit today, we recorded the following information about you: Kayla Babin LPN 04/05/2024 4:22 PM Signed ----- Message from Desire Moyer DO sent at 04/05/2024 3:09 PM EST ----- Gi conjsult chronic liver enzymes Kayla Babin LPN 04/05/2024 4:37 PM Signed Pt is currently under the care of Gastro for Ulcerative Colitis. Pt was under the care of Hem/Onc Dr. Rico in 2023 History of B12 Deficiency. Iron infusions Was rx'd Iron and folic acid by you on 04/02/2024 and 04/05/2024. Was on iron 325mg TID in 2020 along with Suzie C. Kayla Babin LPN 04/05/2024 4:37 PM Signed ----- Message from Desire Moyer DO sent at 04/05/2024 3:15 PM EST ----- Anemic. Encapsontronic hem consult start b12 shots feosol folate written Kayla Babin LPN 04/06/2024 10:07 AM Signed Pt coming into office on 04/16 to f/u with Dr. Moyer. Talked to pt about the orders placed and her history. Pt has UC and has hx of anemia, malabsorbtion in the past. PO iron didn't work for her and she was given iv iron infusions. So was on B12 injections and SL b12 supplements. She was sched for EGD, colonoscopy and capsule scope, and was found . She want to find director of clinical applications closer to her home, will await call from referrals. Will discuss options and treatment with Dr when she comes in. Allergies As of Date: 04/05/2024 (No Known Allergies) Date Reviewed: 03/31/2024 Reviewed by: Sonja Sramiento PA-C - Fully Assessed Prescriptions as of 04/06/2024 - cyanocobalamin 1,000 mcg/mL 1cc I'm weekly x 4 weeks then 1cc monthly - folic acid 1 mg tablet Take 1 tablet by mouth once daily. - ferrous sulfate (FEOSOL) 325 mg (65 mg iron) tablet Take 1 tablet by mouth once daily. - ferrous sulfate (IRON) 325 mg (65 mg iron) tablet Take 1 tablet by mouth once daily. - folic acid 1 mg tablet Take 1 tablet by mouth once daily. - dicyclomine (BENTYL) 10 mg capsule Take 1 capsule by mouth three times a day as needed. - sertraline (ZOLOFT) 100 mg tablet Take 1 tablet by mouth once daily. - levonorgestrel (MIRENA) 21 mcg/24 hours (8 yrs) 52 mg IUD 1 Each by INTRAUTERINE route as directed. Problem List As Of Date 04/05/2024 Noted Resolved Childhood overweight, BMI 85-94.9 percentile [E*08/24/2015 05/11/2021 Generalized anxiety disorder [F41.1] 06/01/2020 Iron deficiency anemia due to chronic blood los*02/09/2021 Ulcerative colitis (HCC) [K51.90] 02/09/2021 Overweight (BMI 25.0-29.9) [E66.3] 05/11/2021 Moderate episode of recurrent major depressive *12/21/2021 Immunocompromised state due to drug therapy (HC*06/21/2022 History of iron deficiency anemia [Z86.2] 08/01/2022 04/03/2023 History of depression [Z86.59] 08/01/2022 Patient request for diagnostic testing [Z01.89] 08/01/2022 04/03/2023 B12 deficiency [E53.8] 09/04/2022 Rh negative state in antepartum period [O26.899*09/05/2022 04/29/2023 Abnormal glucose complicating [O99.81*12/30/2022 04/03/2023 Encounter Status:Closed by KAYLA BABIN on 04/06/24 Normal [facility] CBC W Auto Differential pane l (Bld)on 04-01-2024 Basophils (Bld) [#/Vol] 0.06 10*3/uL Normal <0.11 [facility] Comment on above: Order Comment: Speci men Type: BLOOD SPECIMEN Ordering Facility: [facility] Address: [address] [place] [address] Performed By: #### 2 4323-8, 3016-3, 69301-6 #### [facility] CLIA [id number] [address] [place] [address] [place] Basophils/100 WBC (Bld) 0.5 % Normal [facility] Comment on above: Order Comment: Speci men Type: BLOOD SPECIMEN Ordering Facility: [facility] Address: [address] [place] [address] Performed By: #### 2 4323-8, 6-3, 01820-2 #### [facility] CLIA [id number] [address] [place] [address] [place] Differential cell count method Nom (Bld) Auto Normal [facility] Comment on above: Order Comment: Speci men Type: BLOOD SPECIMEN Ordering Facility: [facility] Address: [address] [place] [address] Performed By: #### 2 4323-8, 6-3, 11890-6 #### [facility] CLIA [id number] [address] [place] [address] [place] Eosinophils (Bld) [#/Vol] 0.22 10*3/uL Normal <0.46 [facility] Comment on above: Order Comment: Speci men Type: BLOOD SPECIMEN Ordering Facility: [facility] Address: [address] [place] [address] Performed By: #### 2 4323-8, 3015-3, 11078-4 #### [facility] CLIA [id number] [address] [place] [address] [place] Eosinophils/100 WBC (Bld) 1.9 % Normal [facility] Comment on above: Order Comment: Speci men Type: BLOOD SPECIMEN Ordering Facility: [facility] Address: [address] [place] [address] Performed By: #### 2 4323-8, 3015-3, 68790-8 #### [facility] CLIA [id number] [address] [place] [address] [place] Erythrocyte distribution width (RBC) [Ratio] 14.1 % Normal 11.5-15.0 [facility] Comment on above: Order Comment: Speci men Type: BLOOD SPECIMEN Ordering Facility: [facility] Address: [address] [place] [address] Performed By: #### 2 4323-8, 3015-3, 96082-9 #### [facility] CLIA [id number] [address] [place] [address] [place] Hematocrit (Bld) [Volume fraction] 33.2 % Low 36.0-46.0 [facility] Comment on above: Order Comment: Speci men Type: BLOOD SPECIMEN Ordering Facility: [facility] Address: [address] [place], [place] [address] Performed By: #### 2 4323-8, 3015-3, 14929-5 #### [facility] CLIA [id number] [address] [place] [address] [place] Hemoglobin (Bld) [Mass/Vol] 10.0 g/dL Low 11.5-15.5 [facility] Comment on above: Order Comment: Speci men Type: BLOOD SPECIMEN Ordering Facility: [facility] Address: [address] [place] [address] Performed By: #### 2 4323-8, 3016-3, 99987-4 #### [facility] CLIA [id number] [address] [place] [address] [place] Immature granulocytes (Bld) [#/Vol] 0.05 10*3/uL Normal <0.10 [facility] Comment on above: Order Comment: Speci men Type: BLOOD SPECIMEN Ordering Facility: [facility] Address: [address] [place] [address] Performed By: #### 2 4323-8, 3016-3, 57422-4 #### [facility] CLIA [id number] [address] [place] [address] [place] Immature granulocytes/100 WBC (Bld) 0.4 % Normal [facility] Comment on above: Order Comment: Speci men Type: BLOOD SPECIMEN Ordering Facility: [facility] Address: [address] [place] [address] Performed By: #### 2 4323-8, 3016-3, 82263-0 #### [facility] CLIA [id number] [address] [place] [address] [place] Lymphocytes (Bld) [#/Vol] 2.61 10*3/uL Normal 1.00-4.00 [facility] Comment on above: Order Comment: Speci men Type: BLOOD SPECIMEN Ordering Facility: [facility] Address: [address] [place] [address] Performed By: #### 2 4323-8, 3016-3, 11396-4 #### [facility] CLIA [id number] [address] [place] [address] [place] Lymphocytes/100 WBC (Bld) 23.0 % Normal [facility] Comment on above: Order Comment: Speci men Type: BLOOD SPECIMEN Ordering Facility: [facility] Address: [address] [place] [address] Performed By: #### 2 4323-8, 3016-3, 06225-3 #### [facility] CLIA [id number] [address] [place] [address] [place] MCH (RBC) [Entitic mass] 24.0 pg Low 26.0-34.0 [facility] Comment on above: Order Comment: Speci men Type: BLOOD SPECIMEN Ordering Facility: [facility] Address: [address] [place] [address] Performed By: #### 2 4323-8, 3016-3, 50781-4 #### [facility] CLIA [id number] [address] [place] [address] [place] MCHC (RBC) [Mass/Vol] 30.1 g/dL Low 30.5-36.0 [facility] Comment on above: Order Comment: Speci men Type: BLOOD SPECIMEN Ordering Facility: [facility] Address: [address] [place] [address] Performed By: #### 2 4323-8, 6-3, 34485-5 #### [facility] CLIA [id number] [address] [place] [address] [place] MCV (RBC) [Entitic vol] 79.6 fL Low 80.0-100.0 [facility] Comment on above: Order Comment: Speci men Type: BLOOD SPECIMEN Ordering Facility: [facility] Address: [address] [place] [address] Performed By: #### 2 4323-8, 6-3, 87220-4 #### [facility] CLIA [id number] [address] [place] [address] [place] Monocytes (Bld) [#/Vol] 1.13 10*3/uL High <0.87 [facility] Comment on above: Order Comment: Speci men Type: BLOOD SPECIMEN Ordering Facility: [facility] Address: [address] [place] [address] Performed By: #### 2 4323-8, 3016-3, 12795-2 #### [facility] CLIA [id number] [address] [place] [address] [place] Monocytes/100 WBC (Bld) 10.0 % Normal [facility] Comment on above: Order Comment: Speci men Type: BLOOD SPECIMEN Ordering Facility: [facility] Address: [address] [place] [address] Performed By: #### 2 4323-8, 6-3, 52816-3 #### [facility] CLIA [id number] [address] [place] [address] [place] Neutrophils (Bld) [#/Vol] 7.26 10*3/uL Normal 1.45-7.50 [facility] Comment on above: Order Comment: Speci men Type: BLOOD SPECIMEN Ordering Facility: [facility] Address: [address] [place] [address] Performed By: #### 2 4323-8, 3015-3, 36192-9 #### [facility] CLIA [id number] [address] [place] [address] [place] Neutrophils/100 WBC (Bld) 64.2 % Normal [facility] Comment on above: Order Comment: Speci men Type: BLOOD SPECIMEN Ordering Facility: [facility] Address: [address] [place] [address] Performed By: #### 2 4323-8, 3015-3, 54676-2 #### [facility] CLIA [id number] [address] [place] [address] [place] Nucleated RBC (Bld) [#/Vol] 10*3/uL Normal <0.01 [facility] Comment on above: Order Comment: Speci men Type: BLOOD SPECIMEN Ordering Facility: [facility] Address: [address] [place] [address] Performed By: #### 2 4323-8, 3, 37078-2 #### [facility] CLIA [id number] [address] [place] [address] [place] Nucleated RBC/100 WBC (Bld) [Ratio] 0.0 /100 WBC Normal [facility] Comment on above: Order Comment: Speci men Type: BLOOD SPECIMEN Ordering Facility: [facility] Address: [address] [place] [address] Performed By: #### 2 4323-8, 3015-3, 69639-6 #### [facility] CLIA [id number] [address] [place] [address] [place] Platelet mean volume (Bld) [Entitic vol] 9.5 fL Normal 9.0-12.7 [facility] Comment on above: Order Comment: Speci men Type: BLOOD SPECIMEN Ordering Facility: [facility] Address: [address] [place] [address] Performed By: #### 2 4323-8, 3, 88882-5 #### [facility] CLIA [id number] [address] [place] [address] [place] Platelets (Bld) [#/Vol] 545 10*3/uL High 150-400 [facility] Comment on above: Order Comment: Speci men Type: BLOOD SPECIMEN Ordering Facility: [facility] Address: [address] [place] [address] Performed By: #### 2 4323-8, 3, 22901-5 #### [facility] CLIA [id number] [address] [place] [id number] [place] RBC (Bld) [#/Vol] 4.17 10*6/uL Normal 3.90-5.20 [facility] Comment on above: Order Comment: Speci men Type: BLOOD SPECIMEN Ordering Facility: [facility] Address: [address] [place] [address] Performed By: #### 2 4323-8, 3, 11588-3 #### [facility] CLIA [id number] [address] [place] [address] [place] WBC (Bld) [#/Vol] 11.33 10*3/uL High 3.70-11.00 [facility] Comment on above: Order Comment: Speci men Type: BLOOD SPECIMEN Ordering Facility: [facility] Address: [address] [place] [address] Performed By: #### 2 4323-8, 3016-3, 99716-3 #### [facility] CLIA [id number] [address] [place] [address] [place] 04-01-2024 ANCA Telephone (FPDOYL) ----- RADHA BARNES ([id number]) 2 F Date Time Provider Department 04/01/24 DESIRE MOYER During your visit today, we recorded the following information about you: Last Period 03/21/24 Kayla Bbain LPN 04/01/2024 11:57 AM Signed ----- Message from Desrie Moyer DO sent at 04/01/2024 10:04 AM EST ----- She is anemic and white ct up ? Ill need to see in office and discuss. Luis Alfredo cárdenas ill need further testing. Anemia panel ordered Kayla Babin LPN 04/01/2024 12:06 PM Signed Pt was in office 03/31/2024 with Geraldo and has the following dx: 1. Ulcerative pancolitis with rectal bleeding (HCC) - COMPLETE BLOOD COUNT; Future - COMPREHENSIVE METABOLIC PANEL; Future - SEDIMENTATION RATE, WESTERGREN; Future - C-REACTIVE PROTEIN; Future - VITAMIN D 25 HYDROXY; Future - VITAMIN B12; Future - CALPROTECTIN,FECAL - C. DIFFICILE PCR - ENTERIC BACTERIAL PANEL BY PCR - CRYPTOSPORIDIUM AND GIARDIA ANTIGENS BY EIA - PANC ELASTASE, FECAL Additional testing ordered by gastro - Will check basic labs, Celiac serology, stool studies to r/o ID - If stool negative for ID, will start on pred taper - Pt due for repeat colonoscopy. Reports she does not wish to start Humira again and would prefer infusion alternative such as Entyvio. Informed we will discuss maintenance med options after updated testing complete - Avoid antidiarrheals, continue oral hydration Kayla Babin LPN 04/01/2024 1:10 PM Signed Pt would like to have you order a hcg quant for , she doesn't believe that she is. Kayla Babin LPN 04/02/2024 11:24 AM Signed Please advise Desire Moyer, 04/02/2024 11:46 AM Signed Ordered Kayla Babin LPN 04/02/2024 11:51 AM Signed What about her lab results? Desire Moyer, 04/02/2024 11:56 AM Signed Iron and folate def Iron 325 daily Folic acid 1 daily sent Get cbc monthly x 3 months Allergies As of Date: 04/01/2024 (No Known Allergies) Date Reviewed: 03/31/2024 Reviewed by: Sonja Sarmiento PA-C - Fully Assessed Primary Visit Diagnosis:B12 deficiency [E53.8] Order(s):HCG QUANTITATIVE [SQHCGQT] Order #: [id number] FUTURE ferrous sulfate (IRON) 325 mg (65 mg iron) tabletTake 1 tablet by mouth once daily.Disp: 30 tabletRfl: 5 folic acid 1 mg tabletTake 1 tablet by mouth once daily.Disp: 30 tabletRfl: 5 COMPLETE BLOOD COUNT AND DIFFERENTIAL [SQCBCDIF] Order #: [id number] STANDING Prescriptions as of 04/02/2024 - ferrous sulfate (IRON) 325 mg (65 mg iron) tablet Take 1 tablet by mouth once daily. - folic acid 1 mg tablet Take 1 tablet by mouth once daily. - dicyclomine (BENTYL) 10 mg capsule Take 1 capsule by mouth three times a day as needed. - sertraline (ZOLOFT) 100 mg tablet Take 1 tablet by mouth once daily. - levonorgestrel (MIRENA) 21 mcg/24 hours (8 yrs) 52 mg IUD 1 Each by INTRAUTERINE route as directed. Problem List As Of Date 04/01/2024 Noted Resolved Childhood overweight, BMI 85-94.9 percentile [E*08/24/2015 05/11/2021 Generalized anxiety disorder [F41.1] 06/01/2020 Iron deficiency anemia due to chronic blood los*02/09/2021 Ulcerative colitis (HCC) [K51.90] 02/09/2021 Overweight (BMI 25.0-29.9) [E66.3] 05/11/2021 Moderate episode of recurrent major depressive *12/21/2021 Immunocompromised state due to drug therapy (HC*06/21/2022 History of iron deficiency anemia [Z86.2] 08/01/2022 04/03/2023 History of depression [Z86.59] 08/01/2022 Patient request for diagnostic testing [Z01.89] 08/01/2022 04/03/2023 B12 deficiency [E53.8] 09/04/2022 Rh negative state in antepartum period [O26.899*09/05/2022 04/29/2023 Abnormal glucose complicating [O99.81*12/30/2022 04/03/2023 Prescriptions ordered this encounter Disp Refills Start End FERROUS SULFATE 325 MG (65 MG IRON) * 30 t* 5 04/02/2024 09/29/2024 Route: ORAL Sig: Take 1 tablet by mouth once daily. FOLIC ACID 1 MG TABLET 30 t* 5 04/02/2024 09/29/2024 Route: ORAL Sig: Take 1 tablet by mouth once daily. Encounter Status:Closed by KAYLA BABIN on 04/02/24 Normal [facility] Ferritin SerPl-mCncon 2024 Ferritin [Mass/Vol] 13.0 ng/mL Low 14.7-205.1 [facility] Comment on above: Order Comment: Speci men Type: BLOOD SPECIMEN Ordering Facility: [facility] Address: [address] [place], [place] [id number] Performed By: #### 2 4323-8, 3016-3, 35939-7 #### [facility] CLIA [id number] [address] [place] [address] [place] Folate SerPl-mCncon 04-01-19 Folate [Mass/Vol] 3.5 ng/mL Low >4.7 [facility] Comment on above: Order Comment: Speci men Type: BLOOD SPECIMEN Ordering Facility: [facility] Address: [address] [place] [address] Performed By: #### 2 4323-8, 3016-3, 72465-7 #### [facility] CLIA [id number] [address] [place] [address] [place] Iron and Iron binding capaci ty panelon 04-01-2024 Iron [Mass/Vol] 16 ug/dL Low 41-186 [facility] Comment on above: Order Comment: Speci men Type: BLOOD SPECIMEN Ordering Facility: [facility] Address: [address] [place] [address] Performed By: #### 2 4323-8, 6-3, 83313-5 #### [facility] CLIA [id number] [address] [place] [address] [place] Iron binding capacity [Mass/Vol] 342 ug/dL Normal 232-386 [facility] Comment on above: Order Comment: Speci men Type: BLOOD SPECIMEN Ordering Facility: [facility] Address: [address] [place] [address] Performed By: #### 2 4323-8, 3016-3, 17846-9 #### [facility] CLIA [id number] [address] [place], [place] [id number] [place] Iron/TIBC [Molar ratio] 4.7 % Low 15.0-57.0 [facility] Comment on above: Order Comment: Speci men Type: BLOOD SPECIMEN Ordering Facility: [facility] Address: [address] [place] [address] Performed By: #### 2 4323-8, 3016-3, 78816-5 #### [facility] CLIA [id number] [address] [place] [address] [place] Retics #on 04-01-2024 Reticulocytes (Bld) [#/Vol] 0.30672 10*3/uL Normal 0.018-0.100 [facility] Comment on above: Order Comment: Speci men Type: BLOOD SPECIMEN Ordering Facility: [facility] Address: [address] [place] [address] Performed By: #### 2 4323-8, 3016-3, 02562-5 #### [facility] CLIA [id number] [address] [place] [address] [place] Reticulocytes (Bld) [#/Vol]o n 04-01-2024 Reticulocytes/100 RBC (Bld) 1.7 % Normal 0.4-2.0 [facility] Comment on above: Order Comment: Speci men Type: BLOOD SPECIMEN Ordering Facility: [facility] Address: [address] [place] [address] Performed By: #### 2 4323-8, 3016-3, 63088-5 #### [facility] [place] [id number] [address] [place] [address] [place] Vit B12 SerPl-ncon 025 Cobalamin (Vitamin B12) [Mass/Vol] 1365 pg/mL High 232-1245 [facility] Comment on above: Order Comment: Speci men Type: BLOOD SPECIMEN Ordering Facility: [facility] Address: [address] [place] [address] Performed By: #### 2 4323-8, 3016-3, 78298-2 #### [facility] [place] [id number] [address] [place] [address] [place] CBC W Auto Differential pane l (Bld)on 03-31-2024 Basophils (Bld) [#/Vol] 0.07 10*3/uL Normal <0.11 [facility] Comment on above: Order Comment: Speci men Type: BLOOD SPECIMEN Ordering Facility: [facility] Address: [address] [place] [address] Performed By: #### 2 4323-8, 3015-3, 54793-1 #### [facility] CLIA [id number] [address] [place] [address] [place] Basophils/100 WBC (Bld) 0.5 % Normal [facility] Comment on above: Order Comment: Speci men Type: BLOOD SPECIMEN Ordering Facility: [facility] Address: [address] [place] [address] Performed By: #### 2 4323-8, 3015-3, 49847-5 #### [facility] CLIA [id number] [address] [place] [address] [place] Differential cell count method Nom (Bld) Auto Normal [facility] Comment on above: Order Comment: Speci men Type: BLOOD SPECIMEN Ordering Facility: [facility] Address: [address] [place] [address] Performed By: #### 2 4323-8, 3015-3, 79623-2 #### [facility] CLIA [id number] [address] [place] [address] [place] Eosinophils (Bld) [#/Vol] 0.30 10*3/uL Normal <0.46 [facility] Comment on above: Order Comment: Speci men Type: BLOOD SPECIMEN Ordering Facility: [facility] Address: [address] [place] [address] Performed By: #### 2 4323-8, 3015-3, 98637-6 #### [facility] CLIA [id number] [address] [place] [address] [place] Eosinophils/100 WBC (Bld) 2.0 % Normal [facility] Comment on above: Order Comment: Speci men Type: BLOOD SPECIMEN Ordering Facility: [facility] Address: [address] [place] [address] Performed By: #### 2 4323-8, 6-3, 18613-7 #### [facility] CLIA [id number] [address] [place] [address] [place] Erythrocyte distribution width (RBC) [Ratio] 14.2 % Normal 11.5-15.0 [facility] Comment on above: Order Comment: Speci men Type: BLOOD SPECIMEN Ordering Facility: [facility] Address: [address] [place] [address] Performed By: #### 2 4323-8, 3015-3, 76023-2 #### [facility] CLIA [id number] [address] [place] [address] [place] Hematocrit (Bld) [Volume fraction] 36.7 % Normal 36.0-46.0 [facility] Comment on above: Order Comment: Speci men Type: BLOOD SPECIMEN Ordering Facility: [facility] Address: [address] [place] [address] Performed By: #### 2 4323-8, 3015-3, 92814-2 #### [facility] CLIA [id number] [address] [place] [address] [place] Hemoglobin (Bld) [Mass/Vol] 10.8 g/dL Low 11.5-15.5 [facility] Comment on above: Order Comment: Speci men Type: BLOOD SPECIMEN Ordering Facility: [facility] Address: [address] [place] [address] Performed By: #### 2 4323-8, 3015-3, 72598-0 #### [facility] CLIA [id number] [address] [place] [address] [place] Immature granulocytes (Bld) [#/Vol] 0.06 10*3/uL Normal <0.10 [facility] Comment on above: Order Comment: Speci men Type: BLOOD SPECIMEN Ordering Facility: [facility] Address: [address] [place] [address] Performed By: #### 2 4323-8, 3015-3, 85451-3 #### [facility] CLIA [id number] [address] [place] [address] [place] Immature granulocytes/100 WBC (Bld) 0.4 % Normal [facility] Comment on above: Order Comment: Speci men Type: BLOOD SPECIMEN Ordering Facility: [facility] Address: [address] [place] [address] Performed By: #### 2 4323-8, 3015-3, 26294-0 #### [facility] CLIA [id number] [address] [place] [address] [place] Lymphocytes (Bld) [#/Vol] 2.04 10*3/uL Normal 1.00-4.00 [facility] Comment on above: Order Comment: Speci men Type: BLOOD SPECIMEN Ordering Facility: [facility] Address: [address] [place] [address] Performed By: #### 2 4323-8, 3, 38690-5 #### [facility] CLIA [id number] [address] [place] [address] [place] Lymphocytes/100 WBC (Bld) 13.6 % Normal [facility] Comment on above: Order Comment: Speci men Type: BLOOD SPECIMEN Ordering Facility: [facility] Address: [address] [place] [address] Performed By: #### 2 4323-8, 3, 64227-7 #### [facility] CLIA [id number] [address] [place] [address] [place] MCH (RBC) [Entitic mass] 23.8 pg Low 26.0-34.0 [facility] Comment on above: Order Comment: Speci men Type: BLOOD SPECIMEN Ordering Facility: [facility] Address: [address] [place] [address] Performed By: #### 2 4323-8, 3015-3, 60956-0 #### [facility] CLIA [id number] [address] [place] [id number] [place] MCHC (RBC) [Mass/Vol] 29.4 g/dL Low 30.5-36.0 [facility] Comment on above: Order Comment: Speci men Type: BLOOD SPECIMEN Ordering Facility: [facility] Address: [address] [place] [address] Performed By: #### 2 4323-8, 3015-3, 48490-2 #### [facility] CLIA [id number] [address] [place] [address] [place] MCV (RBC) [Entitic vol] 81.0 fL Normal 80.0-100.0 [facility] Comment on above: Order Comment: Speci men Type: BLOOD SPECIMEN Ordering Facility: [facility] Address: [address] [place] [address] Performed By: #### 2 4323-8, 3, 69146-0 #### [facility] CLIA [id number] [address] [place] [address] [place] Monocytes (Bld) [#/Vol] 1.16 10*3/uL High <0.87 [facility] Comment on above: Order Comment: Speci men Type: BLOOD SPECIMEN Ordering Facility: [facility] Address: [address] [place] [address] Performed By: #### 2 4323-8, 3, 52805-9 #### [facility] CLIA [id number] [address] [place] [address] [place] Monocytes/100 WBC (Bld) 7.7 % Normal [facility] Comment on above: Order Comment: Speci men Type: BLOOD SPECIMEN Ordering Facility: [facility] Address: [address] [place] [address] Performed By: #### 2 4323-8, 3015-3, 20155-1 #### [facility] CLIA [id number] [address] [place] [address] [place] Neutrophils (Bld) [#/Vol] 11.37 10*3/uL High 1.45-7.50 [facility] Comment on above: Order Comment: Speci men Type: BLOOD SPECIMEN Ordering Facility: [facility] Address: [address] [place] [address] Performed By: #### 2 4323-8, 6-3, 32010-6 #### [facility] CLIA [id number] [address] [place] [address] [place] Neutrophils/100 WBC (Bld) 75.8 % Normal [facility] Comment on above: Order Comment: Speci men Type: BLOOD SPECIMEN Ordering Facility: [facility] Address: [address] [place] [address] Performed By: #### 2 4323-8, 3015-3, 08567-7 #### [facility] CLIA [id number] [address] [place] [address] [place] Nucleated RBC (Bld) [#/Vol] 10*3/uL Normal <0.01 [facility] Comment on above: Order Comment: Speci men Type: BLOOD SPECIMEN Ordering Facility: [facility] Address: [address] [place] [address] Performed By: #### 2 4323-8, 6-3, 21801-6 #### [facility] CLIA [id number] [address] [place] [address] [place] Nucleated RBC/100 WBC (Bld) [Ratio] 0.0 /100 WBC Normal [facility] Comment on above: Order Comment: Speci men Type: BLOOD SPECIMEN Ordering Facility: [facility] Address: [address] [place] [address] Performed By: #### 2 4323-8, 3016-3, 02324-5 #### [facility] CLIA [id number] [address] [place] [id number] [place] Platelet mean volume (Bld) [Entitic vol] 9.3 fL Normal 9.0-12.7 [facility] Comment on above: Order Comment: Speci men Type: BLOOD SPECIMEN Ordering Facility: [facility] Address: [address] [place] [address] Performed By: #### 2 4323-8, 3016-3, 82721-0 #### [facility] CLIA [id number] [address] [place] [address] [place] Platelets (Bld) [#/Vol] 578 10*3/uL High 150-400 [facility] Comment on above: Order Comment: Speci men Type: BLOOD SPECIMEN Ordering Facility: [facility] Address: [address] [place] [address] Performed By: #### 2 4323-8, 3016-3, 65756-0 #### [facility] CLIA [id number] [address] [place] [address] [place] RBC (Bld) [#/Vol] 4.53 10*6/uL Normal 3.90-5.20 [facility] Comment on above: Order Comment: Speci men Type: BLOOD SPECIMEN Ordering Facility: [facility] Address: [address] [place] [address] Performed By: #### 2 4323-8, 6-3, 05793-7 #### [facility] CLIA [id number] [address] [place] [address] [place] WBC (Bld) [#/Vol] 15.00 10*3/uL High 3.70-11.00 [facility] Comment on above: Order Comment: Speci men Type: BLOOD SPECIMEN Ordering Facility: [facility] Address: [address] [place] [address] Performed By: #### 2 4323-8, 3016-3, 92704-4 #### [facility] CLIA [id number] [address] [place] [id number] [place] CNOVon 03-31-2024 CNOV Office Visit ([facility] ) ----- RADHA BARNES ([id number]) 2 F Date Time Provider Department 03/31/24 10:05 AM SONJA SARMIENTO During your visit today, we recorded the following information about you: Pulse Blood pressure Weight 111/minute 118/82 64.4 kg Sonja Sarmiento PA-C 03/31/2024 10:30 AM Signed CHIEF COMPLAINT: Patient presents with: Recheck: Ulcerative Pancolitis- pt states she is feeling worse than she was her ESTELA FARIDA Polo Cameron is a 23 year old female here today for Recheck (Ulcerative Pancolitis- pt states she is feeling worse than she was her ESTELA ) Patient tells me that she has been dealing with significant flare symptoms of abdominal pain and diarrhea in the last two weeks. Pain is getting intense. Seeing blood for the majority of her bowel movements. Moving bowels 2-4x per day. Notes that she had formed stools while on steroids and during . Last OV with Giana Arceo PA-C 09/15/2023: Assessment/Plan (K51.011) Ulcerative pancolitis with rectal bleeding (HCC) (primary encounter diagnosis) (Z11.59) Encounter for screening for other viral diseases 1. Ulcerative pancolitis with rectal bleeding (HCC) - COMPLETE BLOOD COUNT; Future - COMPREHENSIVE METABOLIC PANEL; Future - SEDIMENTATION RATE, WESTERGREN; Future - C-REACTIVE PROTEIN; Future - VITAMIN D 25 HYDROXY; Future - VITAMIN B12; Future - CALPROTECTIN,FECAL - C. DIFFICILE PCR - ENTERIC BACTERIAL PANEL BY PCR - CRYPTOSPORIDIUM AND GIARDIA ANTIGENS BY EIA - PANC ELASTASE, FECAL - Will check basic labs, Celiac serology, stool studies to r/o ID - If stool negative for ID, will start on pred taper - Pt due for repeat colonoscopy. Reports she does not wish to start Humira again and would prefer infusion alternative such as Entyvio. Informed we will discuss maintenance med options after updated testing complete - Avoid antidiarrheals, continue oral hydration 2. Encounter for screening for other viral diseases - BLOOD TB SCREEN, INCUBATED; Future - HEPATITIS B SURFACE ANTIGEN; Future Current Outpatient Medications Medication Sig sertraline (ZOLOFT) 100 mg tablet Take 1 tablet by mouth once daily. levonorgestrel (MIRENA) 21 mcg/24 hours (8 yrs) 52 mg IUD 1 Each by INTRAUTERINE route as directed. No current facility-administered medications for this visit. ALLERGIES No Known Allergies Social History Tobacco Use Smoking status: Never Smokeless tobacco: Never Vaping Use Vaping status: Never Used Substance Use Topics Alcohol use: Not Currently Comment: occasional Drug use: No PAST MEDICAL HISTORY Diagnosis Date Anxiety and depression Childhood overweight, BMI 85-94.9 percentile 08/2015 Iron deficiency anemia Iron deficiency anemia due to chronic blood loss 02/09/2021 Menarche 01/2013 PMH - PAST MEDICAL HISTORY OF 10/15/2006 normal color vision depression Ulcerative colitis (HCC) elevated liver enzymes PAST SURGICAL HISTORY Procedure Laterality Date CAPSULE ENDOSCOPY SMALL BOWEL 01/25/2021 COLONOSCOPY GEN ANES 12/08/2020 EGD 12/08/2020 UNLISTED DIAGNOSTIC GASTROENTEROLOGY PROCEDURE 01/25/2021 FAMILY HISTORY Problem Relation Age of Onset Hypertension Mother other (gluten intolerance) Mother Skin Cancer Mother Hypertension Father Heart Sister murmur as an Heart Maternal Grandmother Diabetes Maternal Grandmother Hypertension Maternal Grandfather Heart Maternal Grandfather 60s other (Bladder cancer) Maternal Grandfather smoker Heart Paternal Grandmother Hypertension Paternal Grandmother Hypertension Paternal Grandfather Heart Paternal Grandfather age 52 PA; adn MGGF REVIEW OF SYSTEMS Review of Systems Constitutional: Positive for activity change, appetite change and fatigue. Gastrointestinal: Positive for abdominal pain, anal bleeding, diarrhea and nausea. All other systems reviewed and are negative. PHYSICAL EXAM BP 118/82 Pulse 111 Wt 142 lb (64.4kg) LMP 05/13/2023 Physical Exam Constitutional: Appearance: Normal appearance. She is normal weight. HENT: Head: Normocephalic and atraumatic. Eyes: General: No scleral icterus. Extraocular Movements: Extraocular movements intact. Conjunctiva/sclera: Conjunctivae normal. Pupils: Pupils are equal, round, and reactive to light. Cardiovascular: Rate and Rhythm: Normal rate and regular rhythm. Pulses: Normal pulses. Heart sounds: Normal heart sounds. Pulmonary: Effort: Pulmonary effort is normal. Breath sounds: Normal breath sounds. Abdominal: General: Abdomen is flat. Bowel sounds are normal. Palpations: Abdomen is soft. Tenderness: There is no abdominal tenderness. Musculoskeletal: General: Normal range of motion. Cervical back: Normal range of motion and neck supple. Skin: General: Skin is warm and dry. Coloration: (more content not included)... Normal [facility] Comprehensive metabolic 2000 panelon 03-31-2024 Albumin [Mass/Vol] 4.1 g/dL Normal 3.9-4.9 [facility] Comment on above: Order Comment: Speci men Type: BLOOD SPECIMEN Ordering Facility: [facility] Address: [address] [place] [address] Performed By: #### 2 4323-8, 3016-3, 98469-5 #### [facility] CLIA [id number] [address] [place] [address] [place] ALP [Catalytic activity/Vol] 160 U/L High 34-123 [facility] Comment on above: Order Comment: Speci men Type: BLOOD SPECIMEN Ordering Facility: [facility] Address: [address] [place] [address] Performed By: #### 2 4323-8, 6-3, 21993-3 #### [facility] CLIA [id number] [address] [place] [address] [place] ALT [Catalytic activity/Vol] 24 U/L Normal 7-38 [facility] Comment on above: Order Comment: Speci men Type: BLOOD SPECIMEN Ordering Facility: [facility] Address: [address] [place] [address] Performed By: #### 2 4323-8, 3016-3, 83017-1 #### [facility] CLIA [id number] [address] [place] [address] [place] Anion gap [Moles/Vol] 12 mmol/L Normal 8-15 [facility] Comment on above: Order Comment: Speci men Type: BLOOD SPECIMEN Ordering Facility: [facility] Address: [address] [place] [address] Performed By: #### 2 4323-8, 6-3, 22609-0 #### [facility] CLIA [id number] [address] [place] [address] [place] AST [Catalytic activity/Vol] 54 U/L High 13-35 [facility] Comment on above: Order Comment: Speci men Type: BLOOD SPECIMEN Ordering Facility: [facility] Address: [address] [place] [address] Performed By: #### 2 4323-8, 3015-3, 15504-9 #### [facility] CLIA [id number] [address] [place] [address] [place] Bilirubin [Mass/Vol] 0.3 mg/dL Normal 0.2-1.3 [facility] Comment on above: Order Comment: Speci men Type: BLOOD SPECIMEN Ordering Facility: [facility] Address: [address] [place] [address] Performed By: #### 2 4323-8, 3015-3, 34748-3 #### [facility] CLIA [id number] [address] [place] [address] [place] Calcium [Mass/Vol] 9.0 mg/dL Normal 8.5-10.2 [facility] Comment on above: Order Comment: Speci men Type: BLOOD SPECIMEN Ordering Facility: [facility] Address: [address] [place] [address] Performed By: #### 2 4323-8, 3015-3, 62630-5 #### [facility] CLIA [id number] [address] [place], [place] [id number] [place] Chloride [Moles/Vol] 99 mmol/L Normal 98-107 [facility] Comment on above: Order Comment: Speci men Type: BLOOD SPECIMEN Ordering Facility: [facility] Address: [address] [place] [address] Performed By: #### 2 4323-8, 3016-3, 47990-1 #### [facility] CLIA [id number] [address] [place] [address] [place] CO2 [Moles/Vol] 25 mmol/L Normal 22-30 [facility] Comment on above: Order Comment: Speci men Type: BLOOD SPECIMEN Ordering Facility: [facility] Address: [address] [place] [address] Performed By: #### 2 4323-8, 3016-3, 49325-4 #### [facility] CLIA [id number] [address] [place] [address] [place] Creatinine [Mass/Vol] 0.56 mg/dL Low 0.58-0.96 [facility] Comment on above: Order Comment: Speci men Type: BLOOD SPECIMEN Ordering Facility: [facility] Address: [address] [place] [address] Performed By: #### 2 4323-8, 6-3, 73869-4 #### [facility] CLIA [id number] [address] [place] [address] [place] Creatinine and Glomerular filtration rate.predicted panel (S/P/Bld) 133 mL/min/1.73m??? Normal >=60 [facility] Comment on above: Order Comment: Speci men Type: BLOOD SPECIMEN Ordering Facility: [facility] Address: [address] [place] [address] Result Comment: Macy mated Glomerular Filtration Rate (eGFR) is calculated using the 2020 CKD-EPI creatinine equation. This equation utilizes serum creatinine, sex, and age as parameters. The creatinine assay has traceable calibration to isotope dilution-mass spectrometry. Refer to KDIGO guidelines for clinical interpretation. In patients with unstable renal function, e.g. those with acute kidney injury, the eGFR may not accurately reflect actual GFR. Performed By: #### 2 4323-8, 6-3, 28524-8 #### [facility] CLIA [id number] [address] [place] [address] [place] Glucose [Mass/Vol] 69 mg/dL Low 74-99 [facility] Comment on above: Order Comment: Sara diaz Type: BLOOD SPECIMEN Ordering Facility: [facility] Address: [address] [place] [address] Result Comment: The [place] Diabetes Association (ADA) provides guidance for cutoff values for fasting glucose and random glucose. The ADA defines fasting as no caloric intake for at least 8 hours. Fasting plasma glucose results between 100 to 125 mg/dL indicate increased risk for diabetes (prediabetes). Fasting plasma glucose results greater than or equal to 126 mg/dL meet the criteria for diagnosis of diabetes. In the absence of unequivocal hyperglycemia, results should be confirmed by repeat testing. In a patient with classic symptoms of hyperglycemia or hyperglycemic crisis, random plasma glucose results greater than or equal to 200 mg/dL meet the criteria for diagnosis of diabetes. Reference: Standards of Medical Care in Diabetes 2016, [place] Diabetes Association. Diabetes Care. 2016.39(Suppl 1). Performed By: #### 2 4323-8, 6-3, 51861-5 #### [facility] CLIA [id number] [address] [place] [address] [place] Potassium [Moles/Vol] 3.8 mmol/L Normal 3.7-5.1 [facility] Comment on above: Order Comment: Amarjiti men Type: BLOOD SPECIMEN Ordering Facility: [facility] Address: [address] [place] [address] Performed By: #### 2 4323-8, 3016-3, 31827-9 #### [facility] CLIA [id number] [address] [place] [address] [place] Protein [Mass/Vol] 7.6 g/dL Normal 6.3-8.0 [facility] Comment on above: Order Comment: Sara men Type: BLOOD SPECIMEN Ordering Facility: [facility] Address: [address] [place] [address] Performed By: #### 2 4323-8, 3016-3, 01111-8 #### [facility] CLIA [id number] [address] [place] [address] [place] Sodium [Moles/Vol] 136 mmol/L Normal 136-144 [facility] Comment on above: Order Comment: Speci men Type: BLOOD SPECIMEN Ordering Facility: [facility] Address: [address] [place] [address] Performed By: #### 2 4323-8, 3016-3, 29476-8 #### [facility] CLIA [id number] [address] [place] [address] [place] Urea nitrogen [Mass/Vol] 4 mg/dL Low 7-21 [facility] Comment on above: Order Comment: Speci men Type: BLOOD SPECIMEN Ordering Facility: [facility] Address: [address] [place] [address] Performed By: #### 2 4323-8, 6-3, 82152-2 #### [facility] CLIA [id number] [address] [place] [address] [place] Lipid 1996 panelon 5 Cholesterol [Mass/Vol] 94 mg/dL Normal <200 [facility] Comment on above: Order Comment: Speci men Type: BLOOD SPECIMEN Ordering Facility: [facility] Address: [address] [place] [address] Result Comment: <200 mg/dL, Desirable 200-239 mg/dL, Borderline high >239 mg/dL, High Performed By: #### 2 4323-8, 3016-3, 98126-1 #### [facility] CLIA [id number] [address] [place] [address] [place] Cholesterol in HDL [Mass/Vol] 31 mg/dL Low >39 [facility] Comment on above: Order Comment: Speci men Type: BLOOD SPECIMEN Ordering Facility: [facility] Address: [address] [place] [address] Result Comment: 40-5 9 mg/dL, Acceptable >59 mg/dL, High: Negative risk factor for coronary heart disease <40 mg/dL, Low: Positive risk factor for coronary heart disease Performed By: #### 2 4323-8, 3016-3, 96112-9 #### [facility] CLIA [id number] [address] [place], [place] [address] [place] [address] [place] Cholesterol in LDL [Mass/Vol] 50 mg/dL Normal <100 [facility] Comment on above: Order Comment: Sara diaz Type: BLOOD SPECIMEN Ordering Facility: [facility] Address: [address] [place] [address] Result Comment: <100 mg/dL, Optimal 100-129 mg/dL, Near optimal/above optimal 130-159 mg/dL, Borderline high 160-189 mg/dL, High >189 mg/dL, Very high Secondary prevention optimal LDL Cholesterol levels are recommended to be < 70 mg/dL Performed By: #### 2 4323-8, 3016-3, 15514-9 #### [facility] CLIA [id number] [address] [place] [address] [place] Cholesterol in LDL/Cholesterol in HDL [Mass ratio] 1.61 {ratio} Normal <2.54 [facility] Comment on above: Order Comment: Sara diaz Type: BLOOD SPECIMEN Ordering Facility: [facility] Address: [address] [place] [address] Result Comment: Enrico cervantes: 1. National Cholesterol Education Program ATP III Guideline At-A-Glance Quick Desk Reference: National Heart, Lung, and Blood [place]. National Institutes of Health. 2001: NIH Publication No. 01-3305. 2. An International Atherosclerosis Society position paper: global recommendations for the management of dyslipidemia: executive summary, Atherosclerosis. 2014: 232(2):410-413. Cut Points from the Lipid Research Clinic's Prevalence Study for ages 20 to 24 years can be located in the following reference: Expert Panel on Integrated Guidelines for Cardiovascular Health and Risk Reduction in Children and Adolescents: National Heart, Lung and Blood [place]. Pediatrics. 2011:128(Suppl 5):V617-006. Performed By: #### 2 4323-8, 6-3, 44932-7 #### [facility] CLIA [id number] [address] [place] [address] [place] Cholesterol in VLDL [Mass/Vol] 13 mg/dL Normal <30 [facility] Comment on above: Order Comment: Sara diaz Type: BLOOD SPECIMEN Ordering Facility: [facility] Address: [address] [place] [address] Performed By: #### 2 4323-8, 6-3, 63879-6 #### [facility] CLIA [id number] [address] [place] [address] [place] Cholesterol non HDL [Mass/Vol] 63 mg/dL Normal <130 [facility] Comment on above: Order Comment: Sara diaz Type: BLOOD SPECIMEN Ordering Facility: [facility] Address: [address] [place] [address] Result Comment: <130 mg/dL, Optimal 130-159 mg/dL, Near optimal/above optimal 160-189 mg/dL, Borderline high 190-219 mg/dL, High >219 mg/dL, Very high Secondary prevention optimal non HDL Cholesterol levels are recommended to be <100 mg/dL Performed By: #### 2 4323-8, 6-3, 13309-9 #### [facility] CLIA [id number] [address] [place] [address] [place] Cholesterol.total/Cho lesterol in HDL [Mass ratio] 3.03 {ratio} Normal <5.10 [facility] Comment on above: Order Comment: Sara diaz Type: BLOOD SPECIMEN Ordering Facility: [facility] Address: [address] [place] [address] Performed By: #### 2 4323-8, 6-3, 91066-2 #### [facility] CLIA [id number] [address] [place] [address] [place] FASTING TIME 12 hrs Normal [facility] Comment on above: Order Comment: Sara diaz Type: BLOOD SPECIMEN Ordering Facility: [facility] Address: [address] [place] [address] Performed By: #### 2 4323-8, 3016-3, 22031-7 #### [facility] CLIA [id number] [address] [place] [address] [place] Triglyceride [Mass/Vol] 66 mg/dL Normal <150 [facility] Comment on above: Order Comment: Sara diaz Type: BLOOD SPECIMEN Ordering Facility: [facility] Address: [address] [place] [address] Result Comment: <150 mg/dL, Normal 150-199 mg/dL, Borderline high 200-499 mg/dL, High >499 mg/dL, Very high Performed By: #### 2 4323-8, 6-3, 42832-1 #### [facility] CLIA [id number] [address] [place] [address] [place] TSH SerPl-aCncon 03-31-2024 TSH Qn 0.877 m[IU]/L Normal 0.270-4.200 [facility] Comment on above: Order Comment: Sara diaz Type: BLOOD SPECIMEN Ordering Facility: [facility] Address: [address] [place] [address] Result Comment: If t he patient is , TSH reference range varies by gestational period: First Trimester (weeks 9-12): 0.180-2.990 mIU/L Second Trimester: 0.110-3.980 mIU/L Third Trimester: 0.480-4.710 mIU/L Zi Norris et al. A Practical Approach for the Verifications and Determination of Site- and Trimester-Specific Reference Intervals for Thyroid Function tests in . Thyroid, 2019:29:3:412-420. Norm Doss et al. 2017 Guidelines of the [place] Thyroid Association for the Diagnosis and Management of Thyroid Disease during and the . Thyroid, 2017:27:3:315-389. Performed By: #### 2 4323-8, 6-3, 38422-1 #### [facility] CLIA [id number] [address] [facility][NOTE 3] [address] [address] [place] Abdomen/Pelvis W IV Cont ONL Yon 01-18-2024 Abdomen/Pelvis W IV Cont ONLY [facility] [address] [place] [address] Abdomen/Pelvis W IV Cont ONLY MR#: [id number] Acct: [id number] Name: RADHA BARNES Rep #: [id number] : 2000 F 23 From: Huseyin Kuhn MD PCP: Dr. Britney Kay MD Status: REG ER Study: Abdomen/Pelvis W IV Cont ONLY Date of Exam: Exam# [id number] Ordering Dr: Dustin Burkett MD [id number] EXAM: CT ABDOMEN AND PELVIS WITH INTRAVENOUS CONTRAST CLINICAL INDICATION: LLQ pain, hx UC TECHNIQUE: Helically acquired images were obtained of the abdomen and pelvis with intravenous contrast. This CT exam was performed using one or more of the following dose reduction techniques: automated exposure control, adjustment of the mA and/or kV according to patient size, and/or use of iterative reconstruction technique. CONTRAST: IV 100mL Isovue-370 RADIATION DOSE: CTDIvol = 10.58 mGy, DLP = 611.90 mGy-cm COMPARISON: CT abdomen and pelvis 12/16/2021 FINDINGS: LOWER THORAX: Unremarkable. Lung bases are clear. No cardiomegaly. No significant pericardial effusion. ABDOMEN: LIVER: Unremarkable. Homogeneous. No focal mass. GALLBLADDER AND BILE DUCTS: Unremarkable. No calcified gallstones. No gallbladder distention or wall edema. No intra- or extrahepatic biliary ductal dilation. PANCREAS: Unremarkable. No focal cystic or solid mass. SPLEEN: Unremarkable. Normal size without focal cystic or solid mass. ADRENALS: Unremarkable. No nodules. KIDNEYS AND URETERS: There is a 3 mm stone in the left UVJ causing mild obstructive changes. Normal renal size and position. STOMACH AND BOWEL: Diffuse wall thickening/inflammation throughout the colon. No stomach or bowel distention. PELVIS: APPENDIX: The appendix is normal. BLADDER: Unremarkable. REPRODUCTIVE: IUD in the uterus. ABDOMEN and PELVIS: INTRAPERITONEAL SPACE: Unremarkable. No ascites or other fluid collection. No free air. BONES/JOINTS: Unremarkable. No suspicious lytic or blastic abnormality. SOFT TISSUES: Unremarkable. No discrete abdominal or pelvic wall hernia. VASCULATURE: Unremarkable. Abdominal aorta is non-dilated. LYMPH NODES: Some stable reactive lymph nodes adjacent to the ileocecal vessels. CT/Abdomen/Pelvis W IV Cont ONLY IMPRESSION: 1. There is a 3 mm stone in the left UVJ causing mild obstructive changes. 2. Diffuse wall thickening/inflammation throughout the colon. Findings consistent with the clinical history of ulcerative colitis. Similar appearance to the 2021 exam. Electronically Signed: Huseyin Kuhn MD at 3:18 EST , CC: Dr. Dustin Burkett MD; Dr. Britney Kay MD Supply Chain Business Analyst: Signed Normal [facility] Basic Metabolic Profile (BMP )on 01-18-2024 BUN/CRE 10.7 RATIO Normal 10-20 [facility] Comment on above: Performed By: #### L 700.6800, L100.0100, L500.2500 #### [facility] [address] [place], [address] CA,Total 8.4 mg/dL Low 8.5-10.1 [facility] Comment on above: Performed By: #### L 700.6800, L100.0100, L500.2500 #### [facility] [address] [place], [address] Chloride [Moles/Vol] 105 mmol/L Normal 98-107 [facility] Comment on above: Performed By: #### L 700.6800, L100.0100, L500.2500 #### [facility] [address] [place], [address] CO2 [Moles/Vol] 29.0 mmol/L Normal 21.0-32.0 [facility] Comment on above: Performed By: #### L 700.6800, L100.0100, L500.2500 #### [facility] [address] [place], [address] Creatinine [Mass/Vol] 0.56 mg/dL Normal 0.55-1.02 [facility] Comment on above: Result Comment: The validity of the calculated GFR GFRAA in patients over 70 years has not been determined. Clinical correlation is essential. Performed By: #### L 700.6800, L100.0100, L500.2500 #### [facility] [address] [place], [address] ECRCL 166.37 ml/min Normal [facility] Comment on above: Performed By: #### L 700.6800, L100.0100, L500.2500 #### [facility] [address] [place], [address] EST GFR - AA 174 mL/min Normal >60 [facility] Comment on above: Result Comment: Afri can [place] GFR Calc Performed By: #### L 700.6800, L100.0100, L500.2500 #### [facility] [address] [place], [address] GAP 6 Normal 5-15 [facility] Comment on above: Performed By: #### L 700.6800, L100.0100, L500.2500 #### [facility] [address] [place], [address] GFR/1.73 sq M.predicted among non-blacks MDRD (S/P/Bld) [Vol rate/Area] 143 mL/min/{1.73_m2} Normal >60 [facility] Comment on above: Result Comment: Non- GFR Calc Performed By: #### L 700.6800, L100.0100, L500.2500 #### [facility] [address] [place], [address] Glucose [Mass/Vol] 166 mg/dL High 74-106 [facility] Comment on above: Result Comment: Fast ing Glucose result greater than or equal to 126 mg/dL suggests DIABETES MELLITUS per A.D.A. criteria. Performed By: #### L 700.6800, L100.0100, L500.2500 #### [facility] [address] [place], [address] Potassium [Moles/Vol] 2.9 mmol/L Low 3.5-5.1 [facility] Comment on above: Performed By: #### L 700.6800, L100.0100, L500.2500 #### [facility] [address] [place], [address] Sodium [Moles/Vol] 140 mmol/L Normal 136-145 [facility] Comment on above: Performed By: #### L 700.6800, L100.0100, L500.2500 #### [facility] [address] [place], [address] Urea nitrogen [Mass/Vol] 6 mg/dL Low 7-18 [facility] Comment on above: Performed By: #### L 700.6800, L100.0100, L500.2500 #### [facility] [address] [place], [address] CBC W/Diff, Automatedon 11-1 0-2023 Absolute Lymph 2.22 X10 3/uL Normal 0.83-4.51 [facility] Comment on above: Performed By: #### L 700.6800, L100.0100, L500.2500 #### [facility] [address] [place], [address] Absolute Neut 8.2 X10 3/uL High 2.0-7.7 [facility] Comment on above: Performed By: #### L 700.6800, L100.0100, L500.2500 #### [facility] [address] [place], [address] Basophils/100 WBC (Bld) 0.4 % Normal 0-1 [facility] Comment on above: Performed By: #### L 700.6800, L100.0100, L500.2500 #### [facility] [address] [place], [address] Eosinophils/100 WBC (Bld) 2.7 % Normal 0-5 [facility] Comment on above: Performed By: #### L 700.6800, L100.0100, L500.2500 #### [facility] [address] [place], [address] Erythrocyte distribution width (RBC) [Ratio] 13.0 % Normal 11.6-14.6 [facility] Comment on above: Performed By: #### L 700.6800, L100.0100, L500.2500 #### [facility] [address] [place], [address] Hematocrit (Bld) [Volume fraction] 30.2 % Low 37-47 [facility] Comment on above: Performed By: #### L 700.6800, L100.0100, L500.2500 #### [facility] [address] [place], [address] Hemoglobin (Bld) [Mass/Vol] 9.3 g/dL Low 12.0-15.0 [facility] Comment on above: Performed By: #### L 700.6800, L100.0100, L500.2500 #### [facility] [address] [place], [address] IG% 0.500 Normal 0.0-0.9 [facility] Comment on above: Result Comment: IG% - Immature Granulocytes (promyelocytes, myelocytes and metamyelocytes) > 1% indicates that a LEFT SHIFT is Present. Performed By: #### L 700.6800, L100.0100, L500.2500 #### [facility] [address] [place], [address] Lymphocytes/100 WBC (Bld) 19.2 % Normal 19-41 [facility] Comment on above: Performed By: #### L 700.6800, L100.0100, L500.2500 #### [facility] [address] [place], [address] MCH (RBC) [Entitic mass] 25.7 pg Low 27.0-32.0 [facility] Comment on above: Performed By: #### L 700.6800, L100.0100, L500.2500 #### [facility] [address] [place], [address] MCHC (RBC) [Mass/Vol] 30.8 g/dL Low 32-36 [facility] Comment on above: Performed By: #### L 700.6800, L100.0100, L500.2500 #### [facility] [address] [place], [address] MCV (RBC) [Entitic vol] 83.4 fL Normal 81-99 [facility] Comment on above: Performed By: #### L 700.6800, L100.0100, L500.2500 #### [facility] [address] [place], [address] Monocytes/100 WBC (Bld) 6.1 % Normal 0-10 [facility] Comment on above: Performed By: #### L 700.6800, L100.0100, L500.2500 #### [facility] [address] [place], [address] Neutrophils/100 WBC (Bld) 71.1 % High 47-70 [facility] Comment on above: Performed By: #### L 700.6800, L100.0100, L500.2500 #### [facility] [address] [place], [address] Nucleated RBC (Bld) [#/Vol] 0 10*3/uL Normal 0-5 [facility] Comment on above: Performed By: #### L 700.6800, L100.0100, L500.2500 #### [facility] [address] [place], [address] Platelet mean volume (Bld) [Entitic vol] 9.1 fL Normal 6.2-12.0 [facility] Comment on above: Performed By: #### L 700.6800, L100.0100, L500.2500 #### [facility] [address] [place], [address] Platelets (Bld) [#/Vol] 403 10*3/uL Normal 150-450 [facility] Comment on above: Performed By: #### L 700.6800, L100.0100, L500.2500 #### [facility] [address] [place], [address] RBC (Bld) [#/Vol] 3.62 10*6/uL Low 4.2-5.4 [facility] Comment on above: Performed By: #### L 700.6800, L100.0100, L500.2500 #### [facility] [address] [place], [address] RDW SD 39.1 fl Normal 35.1-43.9 [facility] Comment on above: Performed By: #### L 700.6800, L100.0100, L500.2500 #### [facility] [address] [place], [address] WBC (Bld) [#/Vol] 11.6 10*3/uL High 4.4-11.0 [facility] Comment on above: Performed By: #### L 700.6800, L100.0100, L500.2500 #### [facility] [address] [place], [address] Emergency Department Summary on 01-18-2024 Emergency Department Summary [facility] Medical Records Department [address] [place] [address] Emergency Department Summary 01/18/24 MR#: [id number] Acct: [id number] Name: RADHA BARNES Rep #: [id number] : 2000 23 From: Dustin Burkett MD PCP: Dr. Britney Kay MD Status:DEP ER Location: ED HPI HPI - GI History of Present Illness Chief Complaint: Abd Pain Informant: patient Narrative Narrative: 23-year-old female with a history of ulcerative colitis states she had a bowel movement about an hour ago and just afterwards started having acute left lower quadrant pain that has persisted. She is never had pain like this before. It radiates into her left low back some. She denies any associated nausea, vomiting, fevers. No urinary symptoms. Not right now. She has known about ulcerative colitis for the past 2 or 3 years, she follows with a senior sql developer with [facility] in [place]. She has tried many oral medications none of which have really helped. Her baseline is having occasional periumbilical abdominal discomfort that is mild, but 5-7 bouts of watery diarrhea often with mild amount of blood in it daily. She states she is slated to try infusions next, however she needs to do a fecal calprotectin and have a colonoscopy first. [facility] Medical History Laceration, obstetrical, first degree Care and examination of lactating mother (spontaneous vaginal delivery) 40 weeks gestation of Shortness of breath Palpitations Tachycardia Iron deficiency anemia Anxiety and depression Ulcerative colitis Home Medications ???Medication ???Instructions ???Recorded ???Last Taken ???Type ferrous sulfate 325 mg (65 mg 325 mg PO DAILY 10/25/22 Unknown History iron) tablet oxycodone-acetaminophen 5 mg-325 1 tab PO Q6H PRN PRN Pain 3 days 01/18/24 Unknown Rx mg tablet #10 TABLETS potassium chloride 20 mEq 20 meq PO BID #14 tabs 01/18/24 Unknown Rx tablet,extended release sertraline 100 mg tablet 100 mg PO DAILY 01/18/24 Unknown History Allergy/AdvReac Type Severity Reaction Status Date / Time No Known Allergies Allergy Verified 01/18/24 00:48 Family History (Updated 10/25/22 @ 11:16 by Carol Ann Fountain) Mother Hypertension Gluten intolerance Father Hypertension Sister Heart murmur Grandmother Heart disease Diabetes Grandfather Hypertension Heart disease Cancer Grandmother Heart disease Hypertension Grandfather Myocardial infarction, Onset Age: 52 Surgical History History of esophagogastroduodenoscop y (EGD) History of colonoscopy Social History Smoking Status: Never smoker alcohol intake: never substance use type: does not use ROS ROS ED Constitutional Constitutional ED: Denies chills or fever(s) Eyes Eyes: Denies change in vision or diplopia ENT ENT ED: Denies rhinorrhea or sore throat Cardiovascular Cardiovascular: Denies chest pain or palpitations Respiratory/Chest Respiratory/Chest: Denies cough or dyspnea Gastrointestinal Gastrointestinal: Reports abdominal pain, diarrhea and hematochezia; Denies hematemesis, melena, nausea or vomiting Genitourinary Genitourinary ED: Denies dysuria or hematuria Musculoskeletal Musculoskeletal: Reports back pain; Denies neck pain Integumentary Denies abscess or rash Neurologic Neurologic: Denies headache(s), paresthesias or weakness Psychiatric Psychiatric: Denies anxiety or suicidal thoughts EXAM Physical Exam Const Vital Signs: 01/18/24 00:44 Temperature 97.9 F Temperature Source Oral Pulse Rate 60 Respiratory Rate 16 Blood Pressure 103/71 Blood Pressure Mean 81 Pulse Ox 98 Oxygen Delivery Method Room Air Positive well nourished and well developed Constitutional Narrative: Well-appearing General Appearance ED: well developed and NAD HEENT Reports moist mucous membranes normocephalic and atraumatic Eyes PERRL and EOMs intact bilaterally Neck full ROM and supple Resp normal respiratory effort and clear to auscultation bilaterally Cardio regular rate, regular rhythm and no murmurs GI non-distended GI Narrative: Very mildly tender just left of suprapubic. No guarding or rebound. Benign exam otherwise. Auscultation: normoactive bowel sounds Palpation: soft Back/Spine no CVA tenderness General Back: other FROM Extremity normal to inspection General Extremety ED: Negative for edema, pulses abnormal or tenderness General Extremity: Negative for edema or pulses abnormal Neuro oriented x3, CN's II-XII intact bilaterally and no sensory deficits noted Sensorium / Orientation: awake and alert Motor Exam: strength 5/5 t (more content not included)... Normal [facility] ,Serum,hCG Quali.on 01-18-2024 HCG, SERUM QUAL Negative Normal [facility] Comment on above: Performed By: #### L [id number], L100.0100, L500.2500 #### [facility] [address] [place], [address] Urinalysis, Completeon 01-17 WBC 0-5 SEEN Normal 0-5 [facility] Comment on above: Order Comment: CLEAN CATCH Performed By: #### L [id number] #### [facility] [address] [place], [address] BACTERIA 0 SEEN Normal None Seen [facility] Comment on above: Order Comment: CLEAN CATCH Performed By: #### L [id number] #### [facility] [address] [place], [address] EPI,SQUAMOUS 0 SEEN Normal - [facility] Comment on above: Order Comment: CLEAN CATCH Performed By: #### L [id number] #### [facility] [address] [place], [address] Mucus Ql (Urine sed) 0 SEEN Normal [facility] Comment on above: Order Comment: CLEAN CATCH Performed By: #### L [id number] #### [facility] [address] [place], [address] RBC 0 SEEN Normal 0-5 [facility] Comment on above: Order Comment: CLEAN CATCH Performed By: #### L [id number] #### [facility] [address] [place], [address] CNOVon 12-12-2023 CNOV Office Visit (FPDOYL ) ----- RADHA BARNES ([id number]) 2 F Date Time Provider Department 12/12/23 3:30 PM DESIRE MOYER FPDOYL During your visit today, we recorded the following information about you: Pulse Blood pressure Weight Height 85/minute 90/62 73.5 kg 1.549 m Desire Moyer DO 12/15/2023 7:57 PM Signed [facility] [place] DO [address] [place] [address] Date of Evaluation: 12/12/2023 Patient Name: Radha Barnes : 2000 Chief Complaint: Patient presents with: Yearly Exam [employer]' Nursing Intake: There are no exam notes on file for this visit. Subjective Ms. Barnes is a 23 year old female who presents with the following complaint(s): Patient presents for work physical. The history is provided by the patient. Anxiety Pertinent negatives include no weakness. This is a chronic problem. The current episode started more than 1 year ago. The problem is unchanged. Treatments tried: zoloft. The treatment provided mild relief. Review of Systems Constitutional: Negative for fatigue and unexpected weight change. HENT: Negative for nosebleeds. Eyes: Negative for redness and visual disturbance. Respiratory: Negative for apnea, cough and shortness of breath. Cardiovascular: Negative for chest pain, palpitations and leg swelling. Genitourinary: Negative for hematuria. Neurological: Negative for dizziness, weakness, light-headedness, numbness and headaches. Hematological: Does not bruise/bleed easily. Psychiatric/Behavioral: The patient is nervous/anxious. PAST MEDICAL HISTORY Diagnosis Date Anxiety and depression Childhood overweight, BMI 85-94.9 percentile 08/2015 Iron deficiency anemia Iron deficiency anemia due to chronic blood loss 02/09/2021 Menarche 01/2013 PMH - PAST MEDICAL HISTORY OF 10/15/2006 normal color vision depression Ulcerative colitis (HCC) elevated liver enzymes PAST SURGICAL HISTORY Procedure Laterality Date CAPSULE ENDOSCOPY SMALL BOWEL 01/25/2021 COLONOSCOPY GEN ANES 12/08/2020 EGD 12/08/2020 UNLISTED DIAGNOSTIC GASTROENTEROLOGY PROCEDURE 01/25/2021 FAMILY HISTORY Problem Relation Age of Onset Hypertension Mother other (gluten intolerance) Mother Skin Cancer Mother Hypertension Father Heart Sister murmur as an Heart Maternal Grandmother Diabetes Maternal Grandmother Hypertension Maternal Grandfather Heart Maternal Grandfather 60s other (Bladder cancer) Maternal Grandfather smoker Heart Paternal Grandmother Hypertension Paternal Grandmother Hypertension Paternal Grandfather Heart Paternal Grandfather age 52 [place]; adn MGGF Social History Tobacco Use Smoking status: Never Smokeless tobacco: Never Vaping Use Vaping status: Never Used Substance Use Topics Alcohol use: Not Currently Comment: occasional Drug use: No Current Outpatient Medications Medication Sig levonorgestrel (MIRENA) 21 mcg/24 hours (8 yrs) 52 mg IUD 1 Each by INTRAUTERINE route as directed. sertraline (ZOLOFT) 100 mg tablet Take 1 tablet by mouth once daily. No current facility-administered medications for this visit. I have confirmed and edited as necessary the past medical, family and social histories, HPI, and ROS obtained by others. Objective BP 90/62 Pulse 85 Ht 5' 1 (1.55m) Wt 162 lb (73.5kg) SpO2 97% LMP 05/13/2023 BMI 30.63 kg/(m2). Physical Exam Vitals and nursing note reviewed. Constitutional: General: She is not in acute distress. Appearance: Normal appearance. She is well-developed. She is not ill-appearing. HENT: Head: Normocephalic. Nose: Nose normal. Mouth/Throat: Pharynx: Uvula midline. Eyes: General: Lids are normal. Vision grossly intact. Gaze aligned appropriately. Extraocular Movements: Extraocular movements intact. Conjunctiva/sclera: Conjunctivae normal. Pupils: Pupils are equal, round, and reactive to light. Neck: Thyroid: No thyroid mass, thyromegaly or thyroid tenderness. Trachea: Trachea and phonation normal. Cardiovascular: Rate and Rhythm: Normal rate and regular rhythm. Pulses: Normal pulses. Heart sounds: Normal heart sounds. Musculoskeletal: General: Normal range of motion. Right shoulder: Normal. Left shoulder: Normal. Cervical back: Normal, full passive range of motion without pain and neck supple. No spinous process tenderness. Thoracic back: Normal. Lumbar back: Normal. Right knee: Normal. Left knee: Normal. Right lower leg: No edema. Left lower leg: No edema. Skin: General: Skin is warm and dry. Neurological: General: No focal deficit present. Mental Status: She is alert and oriented to person, place, and time. Mental status is at baselin (more content not included)... Normal [facility] CNOVon 10-17-2023 CNOV Office Visit (FPDOYL ) ----- RADHA BARNES ([id number]) 2 F Date Time Provider Department 10/17/23 2:30 PM DESIRE MOYER FPYL During your visit today, we recorded the following information about you: Pulse Blood pressure Weight Height 88/minute 120/70 71.2 kg 1.549 m Last Period 05/13/23 Desire Moyer DO 10/21/2023 8:58 PM Signed [facility] [place] DO João [address] [place] [address] Date of Evaluation: 10/17/2023 Patient Name: Radha Barnes : 2000 Chief Complaint: Patient presents with: Establish Care Results: Scan completed by GI Nursing Intake: There are no exam notes on file for this visit. Subjective Ms. Barnes is a 23 year old female who presents to establish care. States she was seeing Gastroenterology and they did blood work and an ultrasound and told patient to establish with pcp. Patient states she feels good. States she has a 7 month old at home. Patient denies gall bladder issues. Patient denies any joint/ bone pain. HPI Review of Systems Constitutional: Negative for fatigue and unexpected weight change. HENT: Negative for nosebleeds. Eyes: Negative for redness and visual disturbance. Respiratory: Negative for apnea, cough and shortness of breath. Cardiovascular: Negative for chest pain, palpitations and leg swelling. Genitourinary: Negative for hematuria. Neurological: Negative for dizziness, weakness, light-headedness, numbness and headaches. Hematological: Does not bruise/bleed easily. Psychiatric/Behavioral: The patient is not nervous/anxious. PAST MEDICAL HISTORY No date: Anxiety and depression 08/2015: Childhood overweight, BMI 85-94.9 percentile No date: Iron deficiency anemia 02/09/2021: Iron deficiency anemia due to chronic blood loss 01/2013: Menarche 10/15/2006: PMH - PAST MEDICAL HISTORY OF Comment: normal color vision No date: depression No date: Ulcerative colitis (HCC) Comment: elevated liver enzymes PAST SURGICAL HISTORY 01/25/2021: CAPSULE ENDOSCOPY SMALL BOWEL 12/08/2020: COLONOSCOPY GEN ANES 12/08/2020: EGD 01/25/2021: UNLISTED DIAGNOSTIC GASTROENTEROLOGY PROCEDURE FAMILY HISTORY Problem Relation Age of Onset Hypertension Mother other (gluten intolerance) Mother Skin Cancer Mother Hypertension Father Heart Sister murmur as an Heart Maternal Grandmother Diabetes Maternal Grandmother Hypertension Maternal Grandfather Heart Maternal Grandfather 60s other (Bladder cancer) Maternal Grandfather smoker Heart Paternal Grandmother Hypertension Paternal Grandmother Hypertension Paternal Grandfather Heart Paternal Grandfather age 52 [place]; adn MGGF Social History Tobacco Use Smoking status: Never Smokeless tobacco: Never Vaping Use Vaping Use: Never used Substance Use Topics Alcohol use: Not Currently Comment: occasional Drug use: No Current Outpatient Medications Medication Sig levonorgestrel (MIRENA) 21 mcg/24 hours (8 yrs) 52 mg IUD 1 Each by INTRAUTERINE route as directed. sertraline (ZOLOFT) 50 mg tablet Take 1 tablet by mouth once daily. No current facility-administered medications for this visit. I have confirmed and edited as necessary the past medical, family and social histories, HPI, and ROS obtained by others. Objective BP 120/70 Pulse 88 Ht 5' 1 (1.55m) Wt 157 lb (71.2kg) SpO2 97% LMP 05/13/2023 BMI 29.68 kg/(m2). Physical Exam Vitals and nursing note reviewed. Exam conducted with a steel detailer present. Constitutional: Appearance: Normal appearance. She is normal weight. HENT: Right Ear: Tympanic membrane, ear canal and external ear normal. There is no impacted cerumen. Left Ear: Tympanic membrane, ear canal and external ear normal. There is no impacted cerumen. Eyes: Extraocular Movements: Extraocular movements intact. Conjunctiva/sclera: Conjunctivae normal. Pupils: Pupils are equal, round, and reactive to light. Cardiovascular: Rate and Rhythm: Normal rate and regular rhythm. Pulses: Normal pulses. Heart sounds: Normal heart sounds. Skin: General: Skin is warm and dry. Neurological: General: No focal deficit present. Mental Status: She is alert and oriented to person, place, and time. Mental status is at baseline. Psychiatric: Mood and Affect: Mood normal. Behavior: Behavior normal. Thought Content: Thought content normal. Judgment: Judgment normal. Data Reviewed: Most recent labs and imaging results. ASSESSMENT/PLAN: 1. Elevated alkaline phosphatase level - ICD9: 790.5, ICD10: R74.8 (primary diagnosis) - Repeat blood work - Will continue to follow elevated Alkaline Phosphatase - Discussed with patients reasons for elevated Alkaline Phosphatas (more content not included)... Normal [facility] No Panel Informationon 10-02 IMPRESSION: Normal sonographic appearance of the right upper quadrant and spleen. Supply Chain Business Analyst: SUNITA Transcribe Date/Time: Oct 03 2023 11:07A Dictated by : DENISHA PAYTON MD This examination was interpreted and the report reviewed and electronically signed by: DENISHA PAYTON MD on Oct 03 2023 11:09AM EST [facility] No Panel InformationOrdered By: [facility] Provider on 10-03-2023 [facility] US ABD RIGHT UPPER QUADRANTo n 10-03-2023 US ABD RIGHT UPPER QUADRANT * * *Final Report* * * DATE OF EXAM: Oct 03 2023 10:35AM GRU 1032 - US ABD RIGHT UPPER QUADRANT / PROCEDURE REASON: Elevated alkaline phosphatase level * * * * Physician Interpretation * * * * EXAMINATION: RIGHT UPPER QUADRANT ULTRASOUND CLINICAL HISTORY: Elevated alkaline phosphatase level TECHNIQUE: Sonography of the right upper quadrant was performed. Images were obtained and stored in a permanent archive. MQ: URUQ_2 COMPARISON: None. RESULT: Pancreas: Normal sonographic appearance. Portions obscured: tail Liver: Echotexture: Normal, homogeneous. Echogenicity: Normal Surface contour: Smooth Lesions: None. Biliary: No intrahepatic biliary duct dilation. CBD: 0.4 cm at the hilum. Gallbladder: Normal caliber -Contents: No cholelithiasis -Wall: Normal -Other: No pericholecystic fluid. Right Kidney: No hydronephrosis. Spleen: 9 cm in length, unremarkable. No splenic lesions Ascites: None. IMPRESSION: Normal sonographic appearance of the right upper quadrant and spleen. Supply Chain Business Analyst: [email or web address] Transcribe Date/Time: Oct 03 2023 11:07A Dictated by : DENISHA PAYTON MD This examination was interpreted and the report reviewed and electronically signed by: DENISHA PAYTON MD on Oct 03 2023 11:09AM EST [id number] Normal [facility] US ABD SPLEEN - NBon [id number] * * *Final Report* * * DATE OF EXAM: Oct 03 2023 10:35AM GRU 1232 - US ABD SPLEEN -NB / PROCEDURE REASON: Elevated alkaline phosphatase level * * * * Physician Interpretation * * * * EXAMINATION: RIGHT UPPER QUADRANT ULTRASOUND CLINICAL HISTORY: Elevated alkaline phosphatase level TECHNIQUE: Sonography of the right upper quadrant was performed. Images were obtained and stored in a permanent archive. MQ: URUQ_2 COMPARISON: None. RESULT: Pancreas: Normal sonographic appearance. Portions obscured: tail Liver: Echotexture: Normal, homogeneous. Echogenicity: Normal Surface contour: Smooth Lesions: None. Biliary: No intrahepatic biliary duct dilation. CBD: 0.4 cm at the hilum. Gallbladder: Normal caliber -Contents: No cholelithiasis -Wall: Normal -Other: No pericholecystic fluid. Right Kidney: No hydronephrosis. Spleen: 9 cm in length, unremarkable. No splenic lesions Ascites: None. [facility] * * *Final Report* * * DATE OF EXAM: Oct 03 2023 10:35AM GRU 1232 - US ABD SPLEEN -NB / PROCEDURE REASON: Elevated alkaline phosphatase level * * * * Physician Interpretation * * * * EXAMINATION: RIGHT UPPER QUADRANT ULTRASOUND CLINICAL HISTORY: Elevated alkaline phosphatase level TECHNIQUE: Sonography of the right upper quadrant was performed. Images were obtained and stored in a permanent archive. MQ: URUQ_2 COMPARISON: None. RESULT: Pancreas: Normal sonographic appearance. Portions obscured: tail Liver: Echotexture: Normal, homogeneous. Echogenicity: Normal Surface contour: Smooth Lesions: None. Biliary: No intrahepatic biliary duct dilation. CBD: 0.4 cm at the hilum. Gallbladder: Normal caliber -Contents: No cholelithiasis -Wall: Normal -Other: No pericholecystic fluid. Right Kidney: No hydronephrosis. Spleen: 9 cm in length, unremarkable. No splenic lesions Ascites: None. IMPRESSION IMPRESSION: Normal sonographic appearance of the right upper quadrant and spleen. Supply Chain Business Analyst: SUNITA Transcribe Date/Time: Oct 03 2023 11:07A Dictated by : DENISHA PAYTON MD This examination was interpreted and the report reviewed and electronically signed by: DENISHA PAYTON MD on Oct 03 2023 11:09AM [facility] Radiology Study observation (narrative) [facility] US ABD SPLEEN -NBon 10-03-19 US ABD SPLEEN -NB * * *Final Report* * * DATE OF EXAM: Oct 03 2023 10:35AM U 1232 - US ABD SPLEEN -NB / PROCEDURE REASON: Elevated alkaline phosphatase level * * * * Physician Interpretation * * * * EXAMINATION: RIGHT UPPER QUADRANT ULTRASOUND CLINICAL HISTORY: Elevated alkaline phosphatase level TECHNIQUE: Sonography of the right upper quadrant was performed. Images were obtained and stored in a permanent archive. MQ: URUQ_2 COMPARISON: None. RESULT: Pancreas: Normal sonographic appearance. Portions obscured: tail Liver: Echotexture: Normal, homogeneous. Echogenicity: Normal Surface contour: Smooth Lesions: None. Biliary: No intrahepatic biliary duct dilation. CBD: 0.4 cm at the hilum. Gallbladder: Normal caliber -Contents: No cholelithiasis -Wall: Normal -Other: No pericholecystic fluid. Right Kidney: No hydronephrosis. Spleen: 9 cm in length, unremarkable. No splenic lesions Ascites: None. IMPRESSION: Normal sonographic appearance of the right upper quadrant and spleen. Supply Chain Business Analyst: SUNITA Transcribe Date/Time: Oct 03 2023 11:07A Dictated by : DENISHA PAYTON MD This examination was interpreted and the report reviewed and electronically signed by: DENISHA PAYTON MD on Oct 03 2023 11:09AM EST [id number] Normal [facility] US Abdomen RUQon 10-03-2023 * * *Final Report* * * DATE OF EXAM: Oct 03 2023 10:35AM GRU 1032 - US ABD RIGHT UPPER QUADRANT / PROCEDURE REASON: Elevated alkaline phosphatase level * * * * Physician Interpretation * * * * EXAMINATION: RIGHT UPPER QUADRANT ULTRASOUND CLINICAL HISTORY: Elevated alkaline phosphatase level TECHNIQUE: Sonography of the right upper quadrant was performed. Images were obtained and stored in a permanent archive. MQ: URUQ_2 COMPARISON: None. RESULT: Pancreas: Normal sonographic appearance. Portions obscured: tail Liver: Echotexture: Normal, homogeneous. Echogenicity: Normal Surface contour: Smooth Lesions: None. Biliary: No intrahepatic biliary duct dilation. CBD: 0.4 cm at the hilum. Gallbladder: Normal caliber -Contents: No cholelithiasis -Wall: Normal -Other: No pericholecystic fluid. Right Kidney: No hydronephrosis. Spleen: 9 cm in length, unremarkable. No splenic lesions Ascites: None. [facility] Provider, [facility] - 10/03/2023 * * *Final Report* * * DATE OF EXAM: Oct 03 2023 10:35AM GRU 1032 - US ABD RIGHT UPPER QUADRANT / PROCEDURE REASON: Elevated alkaline phosphatase level * * * * Physician Interpretation * * * * EXAMINATION: RIGHT UPPER QUADRANT ULTRASOUND CLINICAL HISTORY: Elevated alkaline phosphatase level TECHNIQUE: Sonography of the right upper quadrant was performed. Images were obtained and stored in a permanent archive. MQ: URUQ_2 COMPARISON: None. RESULT: Pancreas: Normal sonographic appearance. Portions obscured: tail Liver: Echotexture: Normal, homogeneous. Echogenicity: Normal Surface contour: Smooth Lesions: None. Biliary: No intrahepatic biliary duct dilation. CBD: 0.4 cm at the hilum. Gallbladder: Normal caliber -Contents: No cholelithiasis -Wall: Normal -Other: No pericholecystic fluid. Right Kidney: No hydronephrosis. Spleen: 9 cm in length, unremarkable. No splenic lesions Ascites: None. IMPRESSION IMPRESSION: Normal sonographic appearance of the right upper quadrant and spleen. Supply Chain Business Analyst: SUNITA Transcribe Date/Time: Oct 03 2023 11:07A Dictated by : DENISHA PAYTON MD This examination was interpreted and the report reviewed and electronically signed by: DENISHA PAYTON MD on Oct 03 2023 11:09AM EST [facility] Radiology Study observation (narrative) [facility] CBC panel Auto (Bld)on 09-14 Erythrocyte distribution width (RBC) [Ratio] 12.8 % 11.5 - 15.0 % [facility] Hematocrit (Bld) [Volume fraction] 36.3 % 36.0 - 46.0 % [facility] Hemoglobin (Bld) [Mass/Vol] 11.5 g/dL 11.5 - 15.5 g/dL [facility] Interpretation and review of laboratory results Abnormal [facility] MCH (RBC) [Entitic mass] 28.5 pg 26.0 - 34.0 pg [facility] MCHC (RBC) [Mass/Vol] 31.7 g/dL 30.5 - 36.0 g/dL [facility] MCV (RBC) [Entitic vol] 89.9 fL 80.0 - 100.0 fL [facility] Nucleated RBC (Bld) [#/Vol] NINF [facility] Platelet mean volume (Bld) [Entitic vol] 9.9 fL 9.0 - 12.7 fL [facility] Platelets (Bld) [#/Vol] 461 10*3/uL High [facility] RBC (Bld) [#/Vol] 4.04 10*6/uL 3.90 - 5.2 0 m/uL [facility] WBC (Bld) [#/Vol] 9.46 10*3/uL [facility] UA DIP,URINE HCG (POC)on Beta HCG ( test) Ql (U) Negative Negative [facility] Mechanical Manufacturing Engineer (POCT) Internal QC OK [facility] Absolute lymphocyte countOrd ered By: Em Sampson on 03-18-2023 Lymphocytes Auto (Unsp spec) [#/Vol] 1.47 10*3/uL 0.83-4.51 [facility] Basophil percentageOrdered B y: Em Sampson on 03-18-2023 Basophils/100 WBC (Bld) 0.2 % 0-1 [facility] Eosinophils/100 WBC (Bld) 0.1 % 0-5 [facility] Neutrophils (Bld) [#/Vol] 10.4 10*3/uL 2.0-7.7 [facility] Neutrophils/100 WBC (Bld) 82.0 % 47-70 [facility] WBC (Bld) [#/Vol] 12.7 10*3/uL 4.4-11.0 [facility] Blood erythrocytes count (nu mber/volume)Ordered By: Em Sampson on 03-18-2023 RBC (Bld) [#/Vol] 3.91 10*6/uL 4.2-5.4 [facility] Blood hemoglobin measurement (mass/volume)Ordered By: Em Sampson on 03-18-2023 Hemoglobin (Bld) [Mass/Vol] 11.5 g/dL 12.0-15.0 [facility] Blood lymphocytes/100 leukoc ytesOrdered By: Em Sampson on 03-18-2023 Lymphocytes/100 WBC (Bld) 11.6 % 19-41 [facility] Blood monocytes/100 leukocyt esOrdered By: Em Sampson on 03-18-2023 Monocytes/100 WBC (Bld) 5.7 % 0-10 [facility] Blood platelet mean volumeOr dered By: Em Sampson on 03-18-2023 Platelet mean volume (Bld) [Entitic vol] 9.7 fL 6.2-12.0 [facility] Determination of erythrocyte mean corpuscular volume (MCV)Ordered By: Em Sampson on 03-18-2023 MCV (RBC) [Entitic vol] 89.8 fL 81-99 [facility] Hematocrit Auto (Bld) [Volum e fraction]Ordered By: Em Sampson on 03-18-2023 Hematocrit (Bld) [Volume fraction] 35.1 % 37-47 [facility] Laboratory - Hematology and Cell countsOrdered By: Em Sampson on 03-18-2023 Erythrocyte distribution width (RBC) [Entitic vol] 44.8 fL 35.1-43.9 [facility] Erythrocyte distribution width (RBC) [Ratio] 13.7 % 11.6-14.6 [facility] Immature granulocytes/100 WBC (Bld) 0.400 % 0.0-0.9 [facility] Comment on above: IG% - Immature Granu locytes (promyelocytes, myelocytes and metamyelocytes) > 1% indicates that a LEFT SHIFT is Present. MCH (RBC) [Entitic mass] 29.4 pg 27.0-32.0 [facility] Nucleated RBC/100 WBC (Bld) [Ratio] 0 % 0-5 [facility] MCHC Auto (RBC) [Mass/Vol]Or dered By: Em Sampson on 03-18-2023 MCHC (RBC) [Mass/Vol] 32.8 g/dL 32-36 [facility] Platelets bldOrdered By: Iris Sampson on 03-18-2023 Platelets (Bld) [#/Vol] 318 10*3/uL 150-450 [facility] Serum Treponema species anti body detectionOrdered By: Em Sampson on 03-18-2023 Treponema sp Ab Ql (S) Non-Reactive [facility] OBSTETRIC ULTRASOUND Ion 1 04-24-2022 [facility] URINE OB DIP B/Oon 3 Glucose Ql (U) Negative Neg mg/dL [facility] Protein.monoclonal (U) [Mass/Vol] Negative Neg mg/dL [facility] URINE OB DIP B/Oon 3 Glucose Ql (U) Negative Neg mg/dL [facility] Protein.monoclonal (U) [Mass/Vol] Negative Neg mg/dL [facility] OBSTETRIC ULTRASOUND WHIon 1 03-26-2022 [facility] URINE OB DIP B/Oon 3 Glucose Ql (U) Negative Neg mg/dL [facility] Protein.monoclonal (U) [Mass/Vol] Negative Neg mg/dL [facility] URINE OB DIP B/Oon 3 Glucose Ql (U) Negative Neg mg/dL [facility] Protein.monoclonal (U) [Mass/Vol] Negative Neg mg/dL [facility] UA DIP, URINE (POC)on 2022 BILIRUBIN UA (POCT) Negative Negative [facility] CLARITY UA (POCT) Clear [facility] COLOR UA (POCT) Yellow [facility] GLUCOSE UA (POCT) Negative Negative mg/dL [facility] Hemoglobin Ql (U) Negative Negative [facility] KETONE UA (POCT) Negative Negative mg/dL [facility] LEUKOCYTES UA (POCT) Negative Negative [facility] NITRITE UA (POCT) Negative Negative [facility] PH UA (POCT) 6.5 4.5 - 8.0 [facility] Protein Ql (U) Negative Negative mg/dL [facility] SPECIFIC GRAVITY UA (POCT) 1.010 1.005 - 1.030 [facility] UROBILINOGEN UA (POCT) 0.2 E.U./dL Normal E.U./dL [facility] URINE OB DIP B/Oon Glucose Ql (U) Negative Neg mg/dL [facility] Protein.monoclonal (U) [Mass/Vol] trace Neg mg/dL [facility] Absolute lymphocyte countOrd ered By: Rafael Hudson on 10-14-2022 Lymphocytes Auto (Unsp spec) [#/Vol] 0.92 10*3/uL 0.83-4.51 [facility] Basophil percentageOrdered B y: Rafael Hudson on 10-14-2022 Basophils/100 WBC (Bld) 0.2 % 0-1 [facility] Chloride [Moles/Vol] 105 mmol/L 98-107 [facility] Eosinophils/100 WBC (Bld) 0.1 % 0-5 [facility] Glucose [Mass/Vol] 109 mg/dL 74-106 [facility] Comment on above: Fasting Glucose resu lt from 100 to 125 mg/dL suggests IMPAIRED HOMEOSTASIS per A.D.A. criteria. Neutrophils (Bld) [#/Vol] 7.4 10*3/uL 2.0-7.7 [facility] Neutrophils/100 WBC (Bld) 83.4 % 47-70 [facility] Potassium [Moles/Vol] 3.2 mmol/L 3.5-5.1 [facility] Sodium [Moles/Vol] 136 mmol/L 136-145 [facility] WBC (Bld) [#/Vol] 8.9 10*3/uL 4.4-11.0 [facility] Blood erythrocytes count (nu mber/volume)Ordered By: Rafael Hudson on 10-14-2022 RBC (Bld) [#/Vol] 3.82 10*6/uL 4.2-5.4 [facility] Blood hemoglobin measurement (mass/volume)Ordered By: Rafael Hudson on 10-14-2022 Hemoglobin (Bld) [Mass/Vol] 12.0 g/dL 12.0-15.0 [facility] Blood lymphocytes/100 leukoc ytesOrdered By: Rafael Hudson on 10-14-2022 Lymphocytes/100 WBC (Bld) 10.3 % 19-41 [facility] Blood monocytes/100 leukocyt esOrdered By: Rafael Hudson on 10-14-2022 Monocytes/100 WBC (Bld) 5.6 % 0-10 [facility] Blood platelet mean volumeOr dered By: Rafael Hudson on 10-14-2022 Platelet mean volume (Bld) [Entitic vol] 9.1 fL 6.2-12.0 [facility] Determination of erythrocyte mean corpuscular volume (MCV)Ordered By: Rafael Hudson on 10-14-2022 MCV (RBC) [Entitic vol] 90.6 fL 81-99 [facility] Hematocrit Auto (Bld) [Volum e fraction]Ordered By: Rafael Hudson on 10-14-2022 Hematocrit (Bld) [Volume fraction] 34.6 % 37-47 [facility] Laboratory - Chemistry and C hemistry - challengeOrdered By: Rafael Hudson on 10-14-2022 CO2 [Moles/Vol] 25.0 mmol/L 21.0-32.0 [facility] Urea nitrogen/Creatinine [Mass ratio] 4.6 mg/mg 10-20 [facility] Laboratory - Hematology and Cell countsOrdered By: Rafael Hudson on 10-14-2022 Erythrocyte distribution width (RBC) [Entitic vol] 43.2 fL 35.1-43.9 [facility] Erythrocyte distribution width (RBC) [Ratio] 13.2 % 11.6-14.6 [facility] Immature granulocytes/100 WBC (Bld) 0.400 % 0.0-0.9 [facility] Comment on above: IG% - Immature Granu locytes (promyelocytes, myelocytes and metamyelocytes) > 1% indicates that a LEFT SHIFT is Present. MCH (RBC) [Entitic mass] 31.4 pg 27.0-32.0 [facility] Nucleated RBC/100 WBC (Bld) [Ratio] 0 % 0-5 [facility] MCHC Auto (RBC) [Mass/Vol]Or dered By: Rafael Hudson on 10-14-2022 MCHC (RBC) [Mass/Vol] 34.7 g/dL 32-36 [facility] No Panel InformationOrdered By: Rafael Hudson on 10-14-2022 D-Dimer Quantitative (PE/DVT) 1.02 FEU/ug/m 0.27-0.49 [facility] Comment on above: D-Dimer ELEVATED (>0 .49): Additional studies and clinicalassessments are indicated to conclude diagnosis of:Deep Vein Thrombosis (DVT) or Pulmonary Embolism (PE) Estimated Creatinine Clearance Calc 159.96 ml/min [facility] Estimated GFR (MDRD) Amer 233 mL/min >60 [facility] Comment on above: GFR Calc Estimated GFR (MDRD) Non-Af Amer 192 mL/min >60 [facility] Comment on above: Non- GFR Calc Troponin I High Sensitivity < 3 pg/mL 3.0-54.0 [facility] Comment on above: Please Note: New Farzaneh t Units and Gender Specific Reference Ranges. For more information see Policy Stat Procedure [facility] High Sensitivity Troponin (TNIH) and attachments. Platelets bldOrdered By: Rafael Hudson on 10-14-2022 Platelets (Bld) [#/Vol] 283 10*3/uL 150-450 [facility] Serum or plasma calcium gerda urement (mass/volume)Ordered By: Rafael Hudson on 10-14-2022 Calcium [Mass/Vol] 8.9 mg/dL 8.5-10.1 [facility] Serum or plasma creatinine m easurement (mass/volume)Ordered By: Rafael Hudson on 10-14-2022 Creatinine [Mass/Vol] 0.44 mg/dL 0.55-1.02 [facility] Comment on above: The validity of the calculated GFR & GFRAA in patients over 70 years has not been determined. Clinical correlation is essential. Serum or plasma urea nitroge n measurement (mass/volume)Ordered By: Rafael Hudson on 10-14-2022 Urea nitrogen [Mass/Vol] 2 mg/dL 7-18 [facility] Thin prep Papanicolaou smear with manual screeningOrdered By: Rafael Hudson on 10-14-2022 Thin prep Papanicolaou smear with manual screening 6 5-15 [facility] NUCHAL TRANSLUCENCY WHIon [facility] URINE OB DIP B/Oon 3 Glucose Ql (U) Negative Neg mg/dL [facility] Protein.monoclonal (U) [Mass/Vol] Negative Neg mg/dL [facility] BACTERIAL VAGINOSIS AMPLIFIC ATIONon 08-27-2022 Lactobacillus crispatus+gasseri+josue senii + Gardnerella vaginalis + Atopobium vaginae rRNA MICHELE+probe Ql (Vag fld) Positive Abnormal Negative for bacterial vaginosis [facility] GILBERT / TRICHOMONAS AMPLIF ICATIONon 08-27-2022 C. glabrata RNA MICHELE+probe Ql (Vag fld) Negative Negative for Gilbert glabrata [facility] Gilbert sp DNA MICHELE+probe Ql (Vag fld) Negative Negative for Gilbert species [facility] T. vaginalis DNA MICHELE+probe Ql (Unsp spec) Negative Negative for Trichomonas vaginalis by amplification [facility] STREP A MOLECULAR (POC)on Procedural Control Valid [facility] Strep A (POCT) Negative Negative [facility] Absolute lymphocyte counton 12-16-2021 Lymphocytes Auto (Unsp spec) [#/Vol] 1.71 10*3/uL 0.83-4.51 [facility] Work Phone: Basophil percentageon 2021 Basophil percentage 0 SEEN /hpf 0-5 [facility] Work Phone: Basophils/100 WBC (Bld) 0.5 % 0-1 [facility] Work Phone: Bilirubin [Mass/Vol] 0.40 mg/dL 0.20-1.00 [facility] Work Phone: Comment on above: For patients on eltr ombopag therapy, use of Dimension [facility] TBIL is not recommended. Chloride [Moles/Vol] 102 mmol/L 98-107 [facility] Work Phone: [phone] Eosinophils/100 WBC (Bld) 0.7 % 0-5 [facility] Work Phone: [phone] Glucose [Mass/Vol] 110 mg/dL 74-106 [facility] Work Phone: [phone] Comment on above: Fasting Glucose resu lt from 100 to 125 mg/dL suggests IMPAIRED HOMEOSTASIS per A.D.A. criteria. Neutrophils (Bld) [#/Vol] 11.3 10*3/uL 2.0-7.7 [facility] Work Phone: [phone] Neutrophils/100 WBC (Bld) 79.7 % 47-70 [facility] Work Phone: [phone] Potassium [Moles/Vol] 3.2 mmol/L 3.5-5.1 [facility] Work Phone: [phone] Protein [Mass/Vol] 7.9 g/dL 6.4-8.2 [facility] Work Phone: [phone] Sodium [Moles/Vol] 138 mmol/L 136-145 [facility] Work Phone: [phone] WBC (Bld) [#/Vol] 14.2 10*3/uL 4.4-11.0 [facility] Work Phone: Bilirubin Test strip Ql (U)o n 12-16-2021 Bilirubin Ql (U) Negative Negative [facility] Work Phone: [phone] Blood erythrocytes count (nu mber/volume)on 12-16-2021 RBC (Bld) [#/Vol] 4.48 10*6/uL 4.2-5.4 [facility] Work Phone: [phone] Blood hemoglobin measurement (mass/volume)on 12-16-2021 Hemoglobin (Bld) [Mass/Vol] 13.2 g/dL 12.0-15.0 [facility] Work Phone: [phone] Blood lymphocytes/100 leukoc yteson 12-16-2021 Lymphocytes/100 WBC (Bld) 12.1 % 19-41 [facility] Work Phone: Blood monocytes/100 leukocyt eson 12-16-2021 Monocytes/100 WBC (Bld) 6.5 % 0-10 [facility] Work Phone: [phone] Blood platelet mean volumeon 12-16-2021 Platelet mean volume (Bld) [Entitic vol] 9.4 fL 6.2-12.0 [facility] Work Phone: [phone] Determination of erythrocyte mean corpuscular volume (MCV)on 12-16-2021 MCV (RBC) [Entitic vol] 87.7 fL 81-99 [facility] Work Phone: [phone] Hematocrit Auto (Bld) [Volum e fraction]on 12-16-2021 Hematocrit (Bld) [Volume fraction] 39.3 % 37-47 [facility] Work Phone: Ketones Test strip Ql (U)on 12-16-2021 Ketones Ql (U) Negative Negative [facility] Work Phone: Laboratory - Chemistry and C hemistry - challengeon 12-16-2021 HCG ( test) Ql (U) Negative [facility] Work Phone: Comment on above: Very dilute urine sp ecimens, as indicated by a low specificgravity, may not contain contact center representative levels of hCG. If is still suspected, a first morning urinespecimen should be collected 48 hours later and tested. ALP [Catalytic activity/Vol] 141 U/L 45-117 [facility] Work Phone: [phone] ALT [Catalytic activity/Vol] 11 U/L 13-56 [facility] Work Phone: [phone] CO2 [Moles/Vol] 29.0 mmol/L 21.0-32.0 [facility] Work Phone: Globulin (S) [Mass/Vol] 4.6 g/dL 2.2-4.2 [facility] Work Phone: Lipase [Catalytic activity/Vol] 32 U/L 73-393 [facility] Work Phone: Urea nitrogen/Creatinine [Mass ratio] 7.7 mg/mg 10-20 [facility] Work Phone: Laboratory - Hematology and Cell countson 12-16-2021 Erythrocyte distribution width (RBC) [Entitic vol] 39.0 fL 35.1-43.9 [facility] Work Phone: Erythrocyte distribution width (RBC) [Ratio] 12.0 % 11.6-14.6 [facility] Work Phone: Immature granulocytes/100 WBC (Bld) 0.500 % 0.0-0.9 [facility] Work Phone: Comment on above: IG% - Immature Granu locytes (promyelocytes, myelocytes and metamyelocytes) > 1% indicates that a LEFT SHIFT is Present. MCH (RBC) [Entitic mass] 29.5 pg 27.0-32.0 [facility] Work Phone: Nucleated RBC/100 WBC (Bld) [Ratio] 0 % 0-5 [facility] Work Phone: MCHC Auto (RBC) [Mass/Vol]on 12-16-2021 MCHC (RBC) [Mass/Vol] 33.6 g/dL 32-36 [facility] Work Phone: Mucus LM Ql (Urine sed)on Mucus Ql (Urine sed) 0 SEEN /hpf [facility] Work Phone: Nitrite Test strip Ql (U)on 12-16-2021 Nitrite Ql (U) Negative Negative [facility] Work Phone: No Panel Informationon 12-16 Estimated Creatinine Clearance Calc 109.19 ml/min [facility] Work Phone: Estimated GFR (MDRD) Amer 149 mL/min >60 [facility] Work Phone: Comment on above: GFR Calc Estimated GFR (MDRD) Non-Af Amer 123 mL/min >60 [facility] Work Phone: Comment on above: Non- GFR Calc Platelets bldon 12-16-2021 Platelets (Bld) [#/Vol] 350 10*3/uL 150-450 [facility] Work Phone: Protein Test strip Ql (U)on 12-16-2021 Protein Ql (U) Negative Negative [facility] Work Phone: [phone] Serum or plasma albumin gerda urement (mass/volume)on 12-16-2021 Albumin [Mass/Vol] 3.3 g/dL 3.2-5.0 [facility] Work Phone: Serum or plasma albumin/glob ulin mass ratioon 12-16-2021 Albumin/Globulin [Mass ratio] 0.7 {ratio} 0.9-2.4 [facility] Work Phone: Serum or plasma calcium gerda urement (mass/volume)on 12-16-2021 Calcium [Mass/Vol] 9.0 mg/dL 8.5-10.1 [facility] Work Phone: Serum or plasma creatinine m easurement (mass/volume)on 12-16-2021 Creatinine [Mass/Vol] 0.65 mg/dL 0.55-1.02 [facility] Work Phone: Comment on above: The validity of the calculated GFR & GFRAA in patients over 70 years has not been determined. Clinical correlation is essential. Serum or plasma urea nitroge n measurement (mass/volume)on 12-16-2021 Urea nitrogen [Mass/Vol] 5 mg/dL 7-18 [facility] Work Phone: Squamous epithelial cells de tection in urine sediment by light microscopyon 12-16-2021 Epithelial cells.squamous LM Ql (Urine sed) 0 SEEN /hpf 5-10 [facility] Work Phone: Thin prep Papanicolaou smear with manual screeningon 12-16-2021 Thin prep Papanicolaou smear with manual screening 11 U/L 15-37 [facility] Work Phone: Thin prep Papanicolaou smear with manual screening 7 5-15 [facility] Work Phone: Urine blood detectionon - RBC Ql (U) Negative Negative [facility] Work Phone: RBC Ql (U) 0 SEEN /hpf 0-5 [facility] Work Phone: Urine clarityon 12-16-2021 Clarity (U) Clear Clear [facility] Work Phone: Urine color determinationon 12-16-2021 Color (U) Yellow Yellow [facility] Work Phone: Urine glucose detectionon Glucose Ql (U) Normal mg/dl Normal [facility] Work Phone: Urine leukocyte esterase det ection by dipstickon 12-16-2021 Leukocyte esterase Test strip Ql (U) Negative Negative [facility] Work Phone: Urine pHon 12-16-2021 pH (U) 7.0 [pH] 5.0 - 8.0 [facility] Work Phone: Urine sediment bacteria coun t by microscopy (number/high power field)on 12-16-2021 Bacteria LM.HPF (Urine sed) [#/Area] 0 /[HPF] None Seen [facility] Work Phone: Urine specific gravity measu rementon 12-16-2021 Specific gravity (U) [Rel density] 1.005 1.002-1.030 [facility] Work Phone: Urobilinogen Auto test strip Ql (U)on 12-16-2021 Urobilinogen Ql (U) Normal mg/dl Normal [facility] Work Phone: Michelle 10-16-2019 MAURILION Telephone (EXCBRE) ----- RADHA BARNES ([id number]) 2 F Date Time Provider Department 10/16/19 NOE CLEMENTE (MAURILIO) ARSLAN During your visit today, we recorded the following information about you: Noe Clemente APRN.[facility] 10/16/2019 8:09 AM Signed HAND[employer] MAN LMTCB for questions, per plan, informed mother via voicemail that testing will not be issued. Pt encouraged to call with questions, present to ER for SOB or problems with hydration, worsening, and reviewed guidelines to return to preschool and safety in the home. Noe Clemente APRN.[facility] [phone] Allergies As of Date: 10/16/2019 (Not on File) Date Reviewed: Never Reviewed Reason for Visit: Procedure [88] Problem List As Of Date: 10/16/2019 (None) Encounter Status:Closed by NOE CLEMENTE CNP on 10/16/19 [facility] 10-15-2019 CNPN Telephone (COVHLD) ----- RADHA BARNES ([id number]) 2 F Date Time Provider Department 10/15/19 BHARTI GARVIN (PA) During your visit today, we recorded the following information about you: Bharti Garvin PA-C 10/15/2019 8:16 PM Signed Patient does not meet [facility] high risk criteria for covid testing -no test ordered High risk patients (any of the following): Age > 60 or <3 years old Active immunosuppression Active cancer ESRD on dialysis Diabetes HTN CAD HF reduced EF Chronic lung disease HIV/Aids Organ transplantation Known COVID-19 Morbid obesity (BMI >40) Allergies As of Date: 10/15/2019 (Not on File) Date Reviewed: Never Reviewed Reason for Visit: Covid-19 Hotline [4375] Problem List As Of Date: 10/15/2019 (None) Encounter Status:Closed by BHARTI GARVIN PA-C on 10/15/19 [facility] PROGRESSon 10-15-2019 PROGRESS HNO ID: [id number] Author: Noe Clemente Service: ? Author Type: Nurse Practitioner Type: Progress Notes Filed: 10/15/2019 5:00 PM Note Text: This note was created using [employer]. Subjective Radha Barnes is a 19 year old female. This 19 year old female presents to [facility] with CC covid concern, fever, 100.4 responding to 98.0 with alternating tylenol and ibuprofen, worsening of symptoms over past 4 days, pt with diarrhea, phlegm in back of throat, cough. Pt denies sore throat, problems with hydration, abdominal pain, mother present for encounter, patient giving consent for mother to participate in care and contribute to HPI. Pt is appropriate, nontoxic appearing, and in NAD. The history is provided by the patient and a parent. Review of Systems Constitutional: Negative for activity change, appetite change, chills, diaphoresis, fatigue, fever and unexpected weight change. HENT: Positive for congestion and postnasal drip. Negative for ear pain, sinus pressure, sinus pain, sneezing, sore throat and trouble swallowing. Reports phlegm in back of throat Respiratory: Positive for cough. Negative for shortness of breath and wheezing. Gastrointestinal: Positive for diarrhea and nausea. Negative for abdominal pain and vomiting. Genitourinary: Negative for decreased urine volume. Musculoskeletal: Negative for arthralgias, back pain and myalgias. Skin: Negative. Negative for rash. Allergic/Immunologic: Negative for environmental allergies, food allergies and immunocompromised state. Neurological: Negative for dizziness and headaches. Hematological: Negative. Psychiatric/Behavioral: Negative. Objective There were no vitals taken for this visit. Physical Exam Constitutional: General: She is not in acute distress. Appearance: She is not ill-appearing, toxic-appearing or diaphoretic. HENT: Head: Normocephalic and atraumatic. Mouth/Throat: Comments: Mother shined light in pt throat, denies erythema or exudate Neck: Musculoskeletal: Normal range of motion and neck supple. Comments: Patient palpated neck, nodes, denies tenderness or enlargement Pulmonary: Effort: Pulmonary effort is normal. Abdominal: Comments: Pt palpated abdomen, particularly LUQ, denies tenderness Lymphadenopathy: Cervical: No cervical adenopathy. Neurological: Mental Status: She is alert and oriented to person, place, and time. Psychiatric: Mood and Affect: Mood normal. Behavior: Behavior normal. Thought Content: Thought content normal. ASSESSMENT/PLAN: 1. 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 Radha Barnes is a female who presents for the past 4 days with symptoms that are gradually worsening. 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 Has the patient had any ill contacts? No Has the patient had contact with anyone confirmed or a probable case with COVID-19 infection in the last 14 days? No Does the patient have family with confirmed COVID-19 infection: No Has the patient traveled or resided in an area with sustained or ongoing community transmission of COVID-19? 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 Follow-up with Primary Care team if symptoms worsen. All questions answered. SIGNATURE: BRANDAN De León PATIENT NAME: Radha Barnes DATE: October 15, 2019 TIME: 4:50 PM Noe Clemente APRN.[facility] No Panel Information SARS-CoV-2 & FLU Antigen (Rapid) [facility] Work Phone: Vital Signs Date Time Vital Sign Value Performing Clinician Facility 10-11-2024 18:00-0400 Diastolic blood pressure 58 mm[Hg] Dr. Dustin Burkett MD Work Phone: [facility] 10-11-2024 18:00-0400 Heart rate 99 /min Dr. Dustin Burkett MD Work Phone: [facility] 10-11-2024 18:00-0400 Respiratory rate 20 /min Dr. Dustin Burkett MD Work Phone: [facility] 10-11-2024 18:00-0400 SaO2% (BldA) [Mass fraction] 99 % Dr. Dustin Burkett MD Work Phone: [facility] 10-11-2024 18:00-0400 Systolic blood pressure 101 mm[Hg] Dr. Dustin Burkett MD Work Phone: [facility] 10-11-2024 16:59-0400 Body temperature 98.6 [degF] Dr. Dustin Burkett MD Work Phone: [facility] 10-11-2024 13:48-0400 Body height 154.[address] Dustin Burkett MD Work Phone: [facility] 10-11-2024 13:48-0400 Body mass index (BMI) [Ratio] 18.7 kg/m2 Dr. Dustin Burkett MD Work Phone: [facility] 10-11-2024 13:48-0400 Body weight 44.[address] Dustin Burkett MD Work Phone: [facility] 10-06-2024 13:09-0400 Diastolic blood pressure 84 mm[Hg] Felipa Whittington MD Work Phone: [facility] 10-06-2024 13:09-0400 Systolic blood pressure 118 mm[Hg] Felipa Whittington MD Work Phone: [facility] 10-06-2024 13:07-0400 Body height 153 cm Felipa Whittington MD Work Phone: [facility] 10-06-2024 13:07-0400 Body mass index (BMI) [Ratio] 20.14 kg/m2 Felipa Whittington MD Work Phone: [facility] 10-06-2024 13:07-0400 Body temperature 98.6 [degF] Felipa Whittington MD Work Phone: [facility] 10-06-2024 13:07-0400 Body weight 47.17 kg Felipa Whittington MD Work Phone: [facility] 10-06-2024 13:07-0400 Heart rate 104 /min Felipa Whittington MD Work Phone: [facility] 10-06-2024 13:07-0400 Respiratory rate 20 /min Felipa Whittington MD Work Phone: [facility] 09-17-2024 11:03-0400 Body height 154.9 cm Karolina Yu 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.H[employer]MER [employer]ITH Work Phone: [facility] 09-17-2024 11:03-0400 Body mass index (BMI) [Ratio] 18.89 kg/m2 Karolina Hritz 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.H[employer]MER [employer]ITH Work Phone: [facility] 09-17-2024 11:03-0400 Body weight 45.36 kg Karolina Hrmelissa 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.[employer]MER [employer] Work Phone: [facility] 09-17-2024 11:03-0400 Diastolic blood pressure 76 mm[Hg] Karolina Yu 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.[employer]MER [employer] Work Phone: [facility] 09-17-2024 11:03-0400 Heart rate 148 /min Karolina Hritz 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.H[employer]MER [employer] Work Phone: [facility] 09-17-2024 11:03-0400 SaO2% (BldA) [Mass fraction] 97 % Karolina Hritz 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.[employer]MER [employer] Work Phone: [facility] 09-17-2024 11:03-0400 Systolic blood pressure 118 mm[Hg] Karolina Hritz 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.[employer]MER [employer] Work Phone: [facility] 06-22-2024 12:50-0400 Heart rate 110 /min Cherelle Hyacinth 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.[employer]MER [employer] Work Phone: [facility] 06-22-2024 11:42-0400 Body height 154.9 cm Cherelle Hyacinth 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.H[employer]MER [employer] Work Phone: [facility] 06-22-2024 11:42-0400 Body mass index (BMI) [Ratio] 22.45 kg/m2 Cherelle Hyacinth 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.[employer]MER [employer]ITH Work Phone: [facility] 06-22-2024 11:42-0400 Body weight 53.9 kg Cherelle Hyacinth 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.[employer]MER [employer] Work Phone: [facility] 06-22-2024 11:42-0400 Diastolic blood pressure 83 mm[Hg] Cherelle Hyacinth 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.H[employer]MER [employer]ITH Work Phone: [facility] 06-22-2024 11:42-0400 SaO2% (BldA) [Mass fraction] 97 % Cherelle Hyacinth 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.H[employer]MER [employer]ITH Work Phone: [facility] 06-22-2024 11:42-0400 Systolic blood pressure 124 mm[Hg] Cherelle Hyacinth 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.H[employer]MER [employer]ITH Work Phone: [facility] 06-08-2024 12:28-0400 Body temperature 98.4 [degF] Dr. Ruben Moyer DO Work Phone: [facility] 06-08-2024 12:28-0400 Diastolic blood pressure 78 mm[Hg] Dr. Ruben Moyer DO Work Phone: [facility] 06-08-2024 12:28-0400 Heart rate 91 /min Dr. Ruben Moyer DO Work Phone: [facility] 06-08-2024 12:28-0400 Respiratory rate 17 /min Dr. Ruben Moyer DO Work Phone: [facility] 06-08-2024 12:28-0400 SaO2% (BldA) [Mass fraction] 98 % Dr. Ruben Moyer DO Work Phone: [facility] 06-08-2024 12:28-0400 Systolic blood pressure 113 mm[Hg] Dr. Ruben Moyer DO Work Phone: [facility] 06-08-2024 08:41-0400 Body height 154.[address] Ruben Moyer DO Work Phone: [facility] 06-08-2024 08:41-0400 Body mass index (BMI) [Ratio] 23.4 kg/m2 Dr. Ruben Moyer DO Work Phone: [facility] 06-08-2024 08:41-0400 Body weight 56.[address] Ruben Moyer DO Work Phone: [facility] 06-08-2024 08:11-0400 Body mass index (BMI) [Ratio] 22.78 kg/m2 Tomasz Childs APRN.HAMMER SMITH Work Phone: [facility] 06-08-2024 08:11-0400 Body temperature 97.7 [degF] Tomasz Childs APRN.[employer]MER [employer] Work Phone: [facility] 06-08-2024 08:11-0400 Body weight 56.5 kg Tomasz Childs APRN.H[employer]MER [employer]ITH Work Phone: [facility] 06-08-2024 08:11-0400 Diastolic blood pressure 78 mm[Hg] Tomasz Amadeo 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.H[employer]MER [employer] Work Phone: [facility] 06-08-2024 08:11-0400 Heart rate 128 /min Tomasz Childs 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.H[employer]MER [employer] Work Phone: [facility] 06-08-2024 08:11-0400 Respiratory rate 18 /min Tomasz Childs 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.H[employer]MER [employer] Work Phone: [facility] 06-08-2024 08:11-0400 SaO2% (BldA) [Mass fraction] 99 % Tomasz Childs 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.H[employer]MER [employer]ITH Work Phone: [facility] 06-08-2024 08:11-0400 Systolic blood pressure 110 mm[Hg] Tomasz Childs 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.H[employer]MER [employer]ITH Work Phone: [facility] 05-11-2024 15:09-0500 Body temperature 98.91 [degF] Treatment Wstr Work Phone: [facility] 05-11-2024 15:09-0500 Diastolic blood pressure 84 mm[Hg] Treatment Wstr Work Phone: [facility] 05-11-2024 15:09-0500 Heart rate 128 /min Treatment Wstr Work Phone: [facility] 05-11-2024 15:09-0500 Respiratory rate 18 /min Treatment Wstr Work Phone: [facility] 05-11-2024 15:09-0500 SaO2% (BldA) [Mass fraction] 98 % Treatment Wstr Work Phone: [facility] 05-11-2024 15:09-0500 Systolic blood pressure 120 mm[Hg] Treatment Wstr Work Phone: [facility] 04-23-2024 13:00-0500 Body temperature 98.29 [degF] Treatment Wstr Work Phone: [facility] 04-23-2024 13:00-0500 Diastolic blood pressure 80 mm[Hg] Treatment Wstr Work Phone: [facility] 04-23-2024 13:00-0500 Heart rate 122 /min Treatment Wstr Work Phone: [facility] 04-23-2024 13:00-0500 Respiratory rate 18 /min Treatment Wstr Work Phone: [facility] 04-23-2024 13:00-0500 SaO2% (BldA) [Mass fraction] 98 % Treatment Wstr Work Phone: [facility] 04-23-2024 13:00-0500 Systolic blood pressure 127 mm[Hg] Treatment Wstr Work Phone: [facility] 04-21-2024 16:50-0500 Diastolic blood pressure 73 mm[Hg] Treatment Wstr Work Phone: [facility] 04-21-2024 16:50-0500 Heart rate 90 /min Treatment Wstr Work Phone: [facility] 04-21-2024 16:50-0500 Systolic blood pressure 116 mm[Hg] Treatment Wstr Work Phone: [facility] 04-21-2024 15:22-0500 Body temperature 98.71 [degF] Treatment Wstr Work Phone: [facility] 04-21-2024 15:22-0500 Respiratory rate 18 /min Treatment Wstr Work Phone: [facility] 04-21-2024 15:22-0500 SaO2% (BldA) [Mass fraction] 99 % Treatment Wstr Work Phone: [facility] 04-20-2024 10:01-0500 Body mass index (BMI) [Ratio] 25.6 kg/m2 Luis Clutter PA-C Work Phone: [facility] 04-20-2024 10:01-0500 Body temperature 98.6 [degF] Luis Clutter PA-C Work Phone: [facility] 04-20-2024 10:01-0500 Body weight 63.5 kg Luis Clutter PA-C Work Phone: [facility] 04-20-2024 10:01-0500 Diastolic blood pressure 72 mm[Hg] Luis Clutter PA-C Work Phone: [facility] 04-20-2024 10:01-0500 Heart rate 118 /min Luis Clutter PA-C Work Phone: [facility] 04-20-2024 10:01-0500 Respiratory rate 16 /min Luis Clutter PA-C Work Phone: [facility] 04-20-2024 10:01-0500 SaO2% (BldA) [Mass fraction] 97 % Luis Clutter PA-C Work Phone: [facility] 04-20-2024 10:01-0500 Systolic blood pressure 118 mm[Hg] Luis Clutter PA-C Work Phone: [facility] 04-16-2024 13:18-0500 Body height 157.5 cm Desire João DO Work Phone: [facility] 04-16-2024 13:18-0500 Body mass index (BMI) [Ratio] 25.61 kg/m2 Desire João DO Work Phone: [facility] 04-16-2024 13:18-0500 Body weight 63.5 kg [place] João DO Work Phone: [facility] 04-16-2024 13:18-0500 Diastolic blood pressure 60 mm[Hg] Desire João DO Work Phone: [facility] 04-16-2024 13:18-0500 Heart rate 106 /min Desire João DO Work Phone: [facility] 04-16-2024 13:18-0500 SaO2% (BldA) [Mass fraction] 98 % [place] João DO Work Phone: [facility] 04-16-2024 13:18-0500 Systolic blood pressure 100 mm[Hg] Desire João DO Work Phone: [facility] 04-16-2024 10:29-0500 Body height 157.5 cm Evelyne Evangelista Work Phone: [facility] 04-16-2024 10:29-0500 Body mass index (BMI) [Ratio] 25.7 kg/m2 Evelyne Evangelista Work Phone: [facility] 04-16-2024 10:29-0500 Body temperature 97.81 [degF] Evelyne Evangelista Work Phone: [facility] 04-16-2024 10:29-0500 Body weight 63.73 kg Evelyne Evangelista Work Phone: [facility] 04-16-2024 10:29-0500 Diastolic blood pressure 74 mm[Hg] Evelyne Evangelista Work Phone: [facility] 04-16-2024 10:29-0500 Heart rate 116 /min Evelyne Evangelista Work Phone: [facility] 04-16-2024 10:29-0500 SaO2% (BldA) [Mass fraction] 97 % Evelyne Evangelista Work Phone: [facility] 04-16-2024 10:29-0500 Systolic blood pressure 115 mm[Hg] Evelyne Evangelista Work Phone: [facility] 03-31-2024 10:09-0500 Body mass index (BMI) [Ratio] 26.83 kg/m2 Sonja Sarmiento PA-C Work Phone: [facility] 03-31-2024 10:09-0500 Body weight 64.41 kg Sonja Sarmiento PA-C Work Phone: [facility] 03-31-2024 10:09-0500 Diastolic blood pressure 82 mm[Hg] Sonja Sarmiento PA-C Work Phone: [facility] 03-31-2024 10:09-0500 Heart rate 111 /min Sonja Sarmiento PA-C Work Phone: [facility] 03-31-2024 10:09-0500 Systolic blood pressure 118 mm[Hg] Sonja Sarmiento PA-C Work Phone: [facility] 12-12-2023 15:32-0400 Body height 154.9 cm Desrie João DO Work Phone: [facility] 12-12-2023 15:32-0400 Body mass index (BMI) [Ratio] 30.61 kg/m2 [place] João DO Work Phone: [facility] 12-12-2023 15:32-0400 Body weight 73.48 kg Desire João DO Work Phone: [facility] 12-12-2023 15:32-0400 Diastolic blood pressure 62 mm[Hg] [place] João DO Work Phone: [facility] 12-12-2023 15:32-0400 Heart rate 85 /min Desire João DO Work Phone: [facility] 12-12-2023 15:32-0400 SaO2% (BldA) [Mass fraction] 97 % Desire João DO Work Phone: [facility] 12-12-2023 15:32-0400 Systolic blood pressure 90 mm[Hg] Desire João DO Work Phone: [facility] 10-17-2023 14:28-0400 Body height 154.9 cm Desire João DO Work Phone: [facility] 10-17-2023 14:28-0400 Body mass index (BMI) [Ratio] 29.66 kg/m2 Desire João DO Work Phone: [facility] 10-17-2023 14:28-0400 Body weight 71.22 kg Desire João DO Work Phone: [facility] 10-17-2023 14:28-0400 Diastolic blood pressure 70 mm[Hg] [place] João DO Work Phone: [facility] 10-17-2023 14:28-0400 Heart rate 88 /min Desire João DO Work Phone: [facility] 10-17-2023 14:28-0400 SaO2% (BldA) [Mass fraction] 97 % Desire João DO Work Phone: [facility] 10-17-2023 14:28-0400 Systolic blood pressure 120 mm[Hg] Desire João DO Work Phone: [facility] 09-15-2023 13:06-0400 Body height 154.9 cm Giana Kalka PA-C Work Phone: [facility] 09-15-2023 13:06-0400 Body mass index (BMI) [Ratio] 27.21 kg/m2 Giana Kalka PA-C Work Phone: [facility] 09-15-2023 13:06-0400 Body weight 65.32 kg Giana Kalka PA-C Work Phone: [facility] 09-15-2023 13:06-0400 Diastolic blood pressure 72 mm[Hg] Giana Kalka PA-C Work Phone: [facility] 09-15-2023 13:06-0400 Heart rate 71 /min Giana Kalka PA-C Work Phone: [facility] 09-15-2023 13:06-0400 Systolic blood pressure 112 mm[Hg] Giana Kalka PA-C Work Phone: [facility] 05-27-2023 14:55-0400 Body weight 62.51 kg Dora Tamayo MD Work Phone: [facility] 05-27-2023 14:55-0400 Diastolic blood pressure 64 mm[Hg] Dora Tamayo MD Work Phone: [facility] 05-27-2023 14:55-0400 Systolic blood pressure 112 mm[Hg] Dora Tamayo MD Work Phone: [facility] 04-29-2023 16:10-0500 Body weight 62.6 kg Dora Tamayo MD Work Phone: [facility] 04-29-2023 16:10-0500 Diastolic blood pressure 64 mm[Hg] Dora Tamayo MD Work Phone: [facility] 04-29-2023 16:10-0500 Systolic blood pressure 100 mm[Hg] Dora Tamayo MD Work Phone: [facility] 03-19-2023 12:09-0500 Body temperature 98.7 [degF] [facility] 03-19-2023 12:09-0500 Diastolic blood pressure 50 mm[Hg] [facility] 03-19-2023 12:09-0500 Heart rate 87 /min [facility] 03-19-2023 12:09-0500 Respiratory rate 16 /min [facility] 03-19-2023 12:09-0500 SaO2% (BldA) [Mass fraction] 97 % [facility] 03-19-2023 12:09-0500 Systolic blood pressure 117 mm[Hg] [facility] 03-18-2023 03:02-0500 Body height 154.94 cm [facility] 03-18-2023 03:02-0500 Body mass index (BMI) [Ratio] 31.5 kg/m2 [facility] 03-18-2023 03:02-0500 Body weight 75.65 kg [facility] 02-24-2023 16:47-0500 Diastolic blood pressure 59 mm[Hg] [facility] 02-24-2023 16:47-0500 Heart rate 111 /min [facility] 02-24-2023 16:47-0500 SaO2% (BldA) [Mass fraction] 98 % [facility] 02-24-2023 16:47-0500 Systolic blood pressure 128 mm[Hg] [facility] 02-24-2023 16:45-0500 Body temperature 98.7 [degF] [facility] 02-24-2023 16:42-0500 Body height 157.48 cm [facility] 02-24-2023 16:42-0500 Body mass index (BMI) [Ratio] 30.6 kg/m2 [facility] 02-24-2023 16:42-0500 Body weight 76 kg [facility] 02-21-2023 10:49-0500 Body weight 74.93 kg Judy Plotts 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.CNM Work Phone: [facility] 02-21-2023 10:49-0500 Diastolic blood pressure 72 mm[Hg] Judy Plotts 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.CNM Work Phone: [facility] 02-21-2023 10:49-0500 Systolic blood pressure 110 mm[Hg] Judy Plotts 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.CNM Work Phone: [facility] 02-07-2023 11:15-0500 Body weight 73.94 kg Em Sampson 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.CNM Work Phone: [facility] 02-07-2023 11:15-0500 Diastolic blood pressure 76 mm[Hg] Em Sampson 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.CNM Work Phone: [facility] 02-07-2023 11:15-0500 Systolic blood pressure 118 mm[Hg] Em Sampson 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.CNM Work Phone: [facility] 01-24-2023 13:19-0500 Body weight 72.12 kg Judy Plotts 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.CNM Work Phone: [facility] 01-24-2023 13:19-0500 Diastolic blood pressure 68 mm[Hg] Judy Plotts 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.CNM Work Phone: [facility] 01-24-2023 13:19-0500 Systolic blood pressure 106 mm[Hg] Judy Plotts 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.CNM Work Phone: [facility] 01-24-2023 12:55-0500 Body weight 72.12 kg Ob Ultrasound Work Phone: [facility] 01-03-2023 08:31-0400 Body weight 71 kg Chair Bath Work Phone: [facility] 01-03-2023 08:29-0400 Body temperature 98.49 [degF] Chair Bath Work Phone: [facility] 01-03-2023 08:29-0400 Diastolic blood pressure 75 mm[Hg] Chair Bath Work Phone: [facility] 01-03-2023 08:29-0400 Heart rate 114 /min Chair Bath Work Phone: [facility] 01-03-2023 08:29-0400 Respiratory rate 18 /min Chair Bath Work Phone: [facility] 01-03-2023 08:29-0400 Systolic blood pressure 114 mm[Hg] Chair Bath Work Phone: [facility] 12-27-2022 15:19-0400 Body weight 71.22 kg Em Sampson APRN.CNM Work Phone: [facility] 12-27-2022 15:19-0400 Diastolic blood pressure 66 mm[Hg] Em Sampson APRN.CNM Work Phone: [facility] 12-27-2022 15:19-0400 Systolic blood pressure 110 mm[Hg] Em Sampson APRN.CNM Work Phone: [facility] 12-27-2022 10:43-0400 Diastolic blood pressure 63 mm[Hg] Chair Bath Work Phone: [facility] 12-27-2022 10:43-0400 Heart rate 85 /min Chair Bath Work Phone: [facility] 12-27-2022 10:43-0400 Systolic blood pressure 102 mm[Hg] Chair Bath Work Phone: [facility] 12-27-2022 08:38-0400 Body temperature 97 [degF] Chair Bath Work Phone: [facility] 12-27-2022 08:38-0400 Respiratory rate 18 /min Chair Bath Work Phone: [facility] 12-27-2022 08:38-0400 SaO2% (BldA) [Mass fraction] 97 % Chair Bath Work Phone: [facility] 12-16-2022 16:15-0400 Body temperature 98.1 [degF] Chair Bath Work Phone: [facility] 12-16-2022 16:15-0400 Diastolic blood pressure 61 mm[Hg] Chair Bath Work Phone: [facility] 12-16-2022 16:15-0400 Heart rate 122 /min Chair Bath Work Phone: [facility] 12-16-2022 16:15-0400 Respiratory rate 20 /min Chair Bath Work Phone: [facility] 12-16-2022 16:15-0400 SaO2% (BldA) [Mass fraction] 97 % Chair Bath Work Phone: [facility] 12-16-2022 16:15-0400 Systolic blood pressure 100 mm[Hg] Chair Bath Work Phone: [facility] 12-16-2022 14:19-0400 Body weight 68.95 kg Chair Bath Work Phone: [facility] 12-02-2022 15:24-0400 Body temperature 97.7 [degF] Em Mejias 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.[employer] Work Phone: [facility] 12-02-2022 15:24-0400 Body weight 68.49 kg Em Mejias 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.[employer] Work Phone: [facility] 12-02-2022 15:24-0400 Diastolic blood pressure 62 mm[Hg] Em Mejias 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.[employer] Work Phone: [facility] 12-02-2022 15:24-0400 Heart rate 102 /min Em Mejias 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.[employer] Work Phone: [facility] 12-02-2022 15:24-0400 Respiratory rate 16 /min Em Mejias 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.H[employer]MER [employer] Work Phone: [facility] 12-02-2022 15:24-0400 SaO2% (BldA) [Mass fraction] 100 % Em Mejias 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.[employer]MER [employer] Work Phone: [facility] 12-02-2022 15:24-0400 Systolic blood pressure 122 mm[Hg] Em Mejias 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.[employer] Work Phone: [facility] 11-29-2022 15:13-0400 Body weight 68.58 kg Deepali Blanco MD Work Phone: [facility] 11-29-2022 15:13-0400 Diastolic blood pressure 70 mm[Hg] Deepali Blanco MD Work Phone: [facility] 11-29-2022 15:13-0400 Systolic blood pressure 110 mm[Hg] Deepali Blanco MD Work Phone: [facility] 10-22-2022 10:45-0400 Body weight 63.5 kg Marjorie Older 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.[employer] Work Phone: [facility] 10-22-2022 10:45-0400 Diastolic blood pressure 68 mm[Hg] Marjorie Older 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.[employer] Work Phone: [facility] 10-22-2022 10:45-0400 Heart rate 120 /min Marjorie Older 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.[employer] Work Phone: [facility] 10-22-2022 10:45-0400 Respiratory rate 18 /min Marjorie Older 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.[employer] Work Phone: [facility] 10-22-2022 10:45-0400 Systolic blood pressure 124 mm[Hg] Marjorie Older 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.H[employer]MER [employer]ITH Work Phone: [facility] 10-14-2022 15:55-0400 Diastolic blood pressure 60 mm[Hg] Dr. Britney Kay Work Phone: [facility] 10-14-2022 15:55-0400 Heart rate 56 /min Dr. Britney Kay Work Phone: [facility] 10-14-2022 15:55-0400 Respiratory rate 20 /min Dr. Britney Kay Work Phone: [facility] 10-14-2022 15:55-0400 SaO2% (BldA) [Mass fraction] 99 % Dr. Britney Kay Work Phone: [facility] 10-14-2022 15:55-0400 Systolic blood pressure 145 mm[Hg] Dr. Britney Kay Work Phone: [facility] 10-14-2022 14:11-0400 Body temperature 99.4 [degF] Dr. Britney Kay Work Phone: [facility] 10-14-2022 11:05-0400 Body height 157.[address] Britney Kay Work Phone: [facility] 10-14-2022 11:05-0400 Body mass index (BMI) [Ratio] 25.2 kg/m2 Dr. Britney Kay Work Phone: [facility] 10-14-2022 11:05-0400 Body weight 62.[address] Britney Kay Work Phone: [facility] 10-02-2022 14:39-0400 Body height 154.9 cm Giana Kalka PA-C Work Phone: [facility] 10-02-2022 14:39-0400 Body weight 63.05 kg Giana Kalka PA-C Work Phone: [facility] 10-02-2022 14:39-0400 Diastolic blood pressure 72 mm[Hg] Giana Kalka PA-C Work Phone: [facility] 10-02-2022 14:39-0400 Heart rate 90 /min Giana Kalka PA-C Work Phone: [facility] 10-02-2022 14:39-0400 Systolic blood pressure 112 mm[Hg] Giana Kalka PA-C Work Phone: [facility] 09-04-2022 09:43-0400 Body height 154.9 cm Ana Rico MD Work Phone: [facility] 09-04-2022 09:43-0400 Body weight 64.41 kg Ana Rico MD Work Phone: [facility] 09-04-2022 09:43-0400 Diastolic blood pressure 68 mm[Hg] Ana Rico MD Work Phone: [facility] 09-04-2022 09:43-0400 Heart rate 104 /min Ana Rico MD Work Phone: [facility] 09-04-2022 09:43-0400 SaO2% (BldA) [Mass fraction] 99 % Ana Rico MD Work Phone: [facility] 09-04-2022 09:43-0400 Systolic blood pressure 121 mm[Hg] Ana Rico MD Work Phone: [facility] 09-03-2022 10:44-0400 Body weight 63.96 kg Doar Tamayo MD Work Phone: [facility] 09-03-2022 10:44-0400 Diastolic blood pressure 64 mm[Hg] Dora Tamayo MD Work Phone: [facility] 09-03-2022 10:44-0400 Systolic blood pressure 98 mm[Hg] Dora Tamayo MD Work Phone: [facility] 09-03-2022 10:11-0400 Body height 154.9 cm Paola Mora MD Work Phone: [facility] 09-03-2022 10:11-0400 Body weight 63.96 kg Paola Mora MD Work Phone: [facility] 08-27-2022 09:32-0400 Body weight 63.59 kg Em Sampson 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.CNM Work Phone: [facility] 08-27-2022 09:32-0400 Diastolic blood pressure 64 mm[Hg] Em Sampson 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.CNM Work Phone: [facility] 08-27-2022 09:32-0400 Systolic blood pressure 110 mm[Hg] Em Sampson 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.CNM Work Phone: [facility] 08-06-2022 14:08-0400 Body height 156.5 cm Dora Tamayo MD Work Phone: [facility] 08-06-2022 14:08-0400 Body weight 63.96 kg Dora Tamayo MD Work Phone: [facility] 08-06-2022 14:08-0400 Diastolic blood pressure 66 mm[Hg] Dora Tamayo MD Work Phone: [facility] 08-06-2022 14:08-0400 Systolic blood pressure 112 mm[Hg] Dora Tamayo MD Work Phone: [facility] 06-28-2022 10:36-0400 Body height 156.8 cm Ana Rico MD Work Phone: [facility] 06-28-2022 10:36-0400 Body temperature 98.4 [degF] Ana Rico MD Work Phone: [facility] 06-28-2022 10:36-0400 Body weight 60.78 kg Ana Rico MD Work Phone: [facility] 06-28-2022 10:36-0400 Diastolic blood pressure 100 mm[Hg] Ana Rico MD Work Phone: [facility] 06-28-2022 10:36-0400 Heart rate 77 /min Ana Rico MD Work Phone: [facility] 06-28-2022 10:36-0400 SaO2% (BldA) [Mass fraction] 97 % Ana Rico MD Work Phone: [facility] 06-28-2022 10:36-0400 Systolic blood pressure 134 mm[Hg] Ana Rico MD Work Phone: [facility] 06-21-2022 10:36-0400 Body height 156.8 cm Isabella Yeboah APRN.H[employer]MER SMITH Work Phone: [facility] 06-21-2022 10:36-0400 Body weight 60.78 kg Isabella Yeboah APRN.[employer] Work Phone: [facility] 06-21-2022 10:36-0400 Diastolic blood pressure 82 mm[Hg] Isabella Yeboah APRN.[employer] Work Phone: [facility] 06-21-2022 10:36-0400 Systolic blood pressure 144 mm[Hg] Isabella Yeboah APRN.[employer] Work Phone: [facility] 06-10-2022 11:35-0400 Body height 154.9 cm Giana Kalka PA-C Work Phone: [facility] 06-10-2022 11:35-0400 Body weight 61.69 kg Giana Kalka PA-C Work Phone: [facility] 06-10-2022 11:35-0400 Diastolic blood pressure 74 mm[Hg] Giana Kalka PA-C Work Phone: [facility] 06-10-2022 11:35-0400 Heart rate 64 /min Giana Kalka PA-C Work Phone: [facility] 06-10-2022 11:35-0400 Systolic blood pressure 116 mm[Hg] Giana Kalka PA-C Work Phone: [facility] 05-01-2022 10:10-0500 Body temperature 98.49 [degF] Braden Hammonds 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.[employer] Work Phone: [facility] 05-01-2022 10:10-0500 Body weight 62.69 kg Braden Hammonds APRN.[employer] Work Phone: [facility] 05-01-2022 10:10-0500 Diastolic blood pressure 84 mm[Hg] Braden Hammonds 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.[employer] Work Phone: [facility] 05-01-2022 10:10-0500 Heart rate 116 /min Braden Hammonds 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.[employer]MER [employer] Work Phone: [facility] 05-01-2022 10:10-0500 Respiratory rate 18 /min Braden Hammonds 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.HAMMER SMITH Work Phone: [facility] 05-01-2022 10:10-0500 SaO2% (BldA) [Mass fraction] 97 % Braden Hammonds 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.HAMMER SMITH Work Phone: [facility] 05-01-2022 10:10-0500 Systolic blood pressure 132 mm[Hg] Braden Jimenezsusan GIPSON Work Phone: [facility] 02-28-2022 09:19-0500 Body height 154.9 cm Ana Rico MD Work Phone: [facility] 02-28-2022 09:19-0500 Body temperature 97.5 [degF] Ana Rico MD Work Phone: [facility] 02-28-2022 09:19-0500 Body weight 66.22 kg Ana Rico MD Work Phone: [facility] 02-28-2022 09:19-0500 Diastolic blood pressure 80 mm[Hg] Ana Rico MD Work Phone: [facility] 02-28-2022 09:19-0500 Heart rate 98 /min Ana Rico MD Work Phone: [facility] 02-28-2022 09:19-0500 SaO2% (BldA) [Mass fraction] 100 % Ana Rico MD Work Phone: [facility] 02-28-2022 09:19-0500 Systolic blood pressure 118 mm[Hg] Ana Rico MD Work Phone: [facility] 01-02-2022 16:43-0400 Body height 154.9 cm Britney Kay MD Work Phone: [facility] 01-02-2022 16:43-0400 Body temperature 99 [degF] Britney Kay MD Work Phone: [facility] 01-02-2022 16:43-0400 Body weight 65.77 kg Britney Kay MD Work Phone: [facility] 01-02-2022 16:43-0400 Diastolic blood pressure 60 mm[Hg] Britney Kay MD Work Phone: [facility] 01-02-2022 16:43-0400 Heart rate 77 /min Britney Kay MD Work Phone: [facility] 01-02-2022 16:43-0400 Respiratory rate 12 /min Britney Kay MD Work Phone: [facility] 01-02-2022 16:43-0400 SaO2% (BldA) [Mass fraction] 97 % Britney Kay MD Work Phone: [facility] 01-02-2022 16:43-0400 Systolic blood pressure 118 mm[Hg] Britney Kay MD Work Phone: [facility] 12-21-2021 10:59-0400 Body weight 65.77 kg Britney Kay MD Work Phone: [facility] 12-21-2021 10:59-0400 Diastolic blood pressure 80 mm[Hg] Britney Kay MD Work Phone: [facility] 12-21-2021 10:59-0400 Heart rate 86 /min Britney Kay MD Work Phone: [facility] 12-21-2021 10:59-0400 Respiratory rate 16 /min Britney Kay MD Work Phone: [facility] 12-21-2021 10:59-0400 SaO2% (BldA) [Mass fraction] 96 % Britney Kay MD Work Phone: [facility] 12-21-2021 10:59-0400 Systolic blood pressure 124 mm[Hg] Britney Kay MD Work Phone: [facility] 12-16-2021 14:39-0400 Diastolic blood pressure 70 mm[Hg] [facility] Work Phone: 12-16-2021 14:39-0400 Heart rate 83 /min [facility] Work Phone: 12-16-2021 14:39-0400 SaO2% (BldA) [Mass fraction] 96 % [facility] Work Phone: 12-16-2021 14:39-0400 Systolic blood pressure 102 mm[Hg] [facility] Work Phone: 12-16-2021 12:15-0400 Body height 157.48 cm [facility] Work Phone: 12-16-2021 12:15-0400 Body mass index (BMI) [Ratio] 26.5 kg/m2 [facility] Work Phone: 12-16-2021 12:15-0400 Body temperature 98.2 [degF] [facility] Work Phone: 12-16-2021 12:15-0400 Body weight 65.77 kg [facility] Work Phone: 12-16-2021 12:15-0400 Respiratory rate 16 /min [facility] Work Phone: 12-16-2021 11:52-0400 Body temperature 98.2 [degF] Em Mejias 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.HAMMER SMITH Work Phone: [facility] 12-16-2021 11:52-0400 Body weight 65.32 kg Em Mejias 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.HAMMER SMITH Work Phone: [facility] 12-16-2021 11:52-0400 Diastolic blood pressure 72 mm[Hg] Em Mejias 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.HAMMER SMITH Work Phone: [facility] 12-16-2021 11:52-0400 Heart rate 124 /min Em Mejias 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.HAMMER SMITH Work Phone: [facility] 12-16-2021 11:52-0400 Respiratory rate 18 /min Em Mejias 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.HAMMER SMITH Work Phone: [facility] 12-16-2021 11:52-0400 SaO2% (BldA) [Mass fraction] 99 % Em Mejias 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.HAMMER SMITH Work Phone: [facility] 12-16-2021 11:52-0400 Systolic blood pressure 122 mm[Hg] Em Mejias 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.HAMMER SMITH Work Phone: [facility] 11-30-2021 08:41-0400 Body height 156.8 cm Giana Kalka PA-C Work Phone: [facility] 11-30-2021 08:41-0400 Body weight 66.68 kg Giana Kalka PA-C Work Phone: [facility] 11-30-2021 08:41-0400 Diastolic blood pressure 72 mm[Hg] Giana Kalka PA-C Work Phone: [facility] 11-30-2021 08:41-0400 Heart rate 66 /min Giana Kalka PA-C Work Phone: [facility] 11-30-2021 08:41-0400 Systolic blood pressure 102 mm[Hg] Giana Kalka PA-C Work Phone: [facility] 09-26-2021 09:41-0400 Body height 156.8 cm Giana Kalka PA-C Work Phone: [facility] 09-26-2021 09:41-0400 Body weight 62.05 kg Giana Kalka PA-C Work Phone: [facility] 09-26-2021 09:41-0400 Diastolic blood pressure 74 mm[Hg] Giana Kalka PA-C Work Phone: [facility] 09-26-2021 09:41-0400 Heart rate 79 /min Giana Kalka PA-C Work Phone: [facility] 09-26-2021 09:41-0400 Systolic blood pressure 112 mm[Hg] Giana Kalka PA-C Work Phone: [facility] 06-22-2021 14:04-0400 Body height 156.8 cm Ana Rico MD Work Phone: [facility] 06-22-2021 14:04-0400 Body temperature 97.2 [degF] Ana Rico MD Work Phone: [facility] 06-22-2021 14:04-0400 Body weight 62.41 kg Ana Rico MD Work Phone: [facility] 06-22-2021 14:04-0400 Diastolic blood pressure 74 mm[Hg] Ana Rico MD Work Phone: [facility] 06-22-2021 14:04-0400 Heart rate 70 /min Ana Rico MD Work Phone: [facility] 06-22-2021 14:04-0400 SaO2% (BldA) [Mass fraction] 99 % Ana Rico MD Work Phone: [facility] 06-22-2021 14:04-0400 Systolic blood pressure 114 mm[Hg] Ana Rico MD Work Phone: [facility] Encounters Encounter Date Encounter Type Care Provider Facility Start: 10-11-2024 Non-patient / Non-visit Dr. Edy Rios [facility] Work Phone: Start: 10-11-2024 Evaluation and management of inpatient Dr. Edy Martinez DO [facility] Work Phone: Start: 10-11-2024 End: 10-11-2024 Telephone encounter Carlos Woo MD Work Phone: [facility] [place] Comment on above: Vomiting, abdominal pain and no appetite Start: 10-10-2024 End: 10-10-2024 Orders Only Felipa Whittington MD Work Phone: [facility] Comment on above: Ulcerative colitis w ith complication, unspecified location (HCC) (Primary Dx) Start: 10-07-2024 End: 10-11-2024 Orders Only Felipa Whittington MD Work Phone: [facility] Comment on above: Elevated alkaline ph osphatase level (Primary Dx) Lab results Start: 10-06-2024 End: 10-06-2024 ambulatory FELIPA WHITTINGTON Facility:[facility] Start: 10-06-2024 End: 10-06-2024 E-mail encounter from caregiver [facility] Provider Tiffany Neil Start: 10-06-2024 End: 10-06-2024 Patient encounter procedure [facility] Provider Tiffany Neil Comment on above: Appointment Start: 10-06-2024 End: 10-06-2024 Office outpatient new 30 minutes Felipa Whittington MD Work Phone: [facility] Comment on above: [facility] (Primary Dx); Encounter for immunization; Ulcerative colitis with complication, unspecified location (HCC); Depression, unspecified depression type Start: 10-06-2024 End: 10-06-2024 ambulatory FELIPA WHITTINGTON Facility:[facility] Start: 10-05-2024 End: 10-05-2024 Telephone encounter Giana Arceo PA-C Work Phone: [facility] Comment on above: Patient Question (In fusion start) Start: 09-29-2024 End: 09-30-2024 Telephone encounter Karolina Yu APRN.CNP Work Phone: [facility] Start: 09-24-2024 End: 09-24-2024 ambulatory FELIPA WHITTINGTON Facility:[facility] Start: 09-24-2024 End: 09-24-2024 Subsequent hospital visit by physician Ct Prep [facility] Comment on above: Ulcerative pancoliti s with rectal bleeding (HCC) [K51.011] Start: 09-23-2024 End: 09-23-2024 ambulatory [facility] Facility:[facility] Start: 09-17-2024 End: 09-17-2024 Office outpatient visit 25 minutes Karolina Yu APRN.CNP Work Phone: [facility] Comment on above: Ulcerative pancoliti s with rectal bleeding (HCC) (Primary Dx); Unintentional weight loss; Anemia, unspecified type Start: 09-17-2024 End: 09-17-2024 ambulatory [facility] Provider Tiffany gage Comment on above: Colonoscopy Start: 07-08-2024 End: 07-08-2024 Orders Only Evelyne Evangelista Work Phone: Hematology/Oncology Comment on above: Iron deficiency anem ia due to chronic blood loss (Primary Dx); B12 deficiency; Vitamin D deficiency Start: 06-23-2024 End: 08-23-2024 Follow-up encounter Cherelle Handley APRN.HAMMER SMITH Work Phone: Family Medicine Start: 06-22-2024 End: 06-22-2024 ambulatory CHERELLEROULA HANDLEY Facility:[facility] Start: 06-22-2024 End: 06-22-2024 Office outpatient new 30 minutes Cherelle Handley STEPHANIE.HAMMER SMITH Work Phone: Family Medicine Comment on above: Hypokalemia (Primary Dx); Chest tightness; Fatigue, unspecified type; Dizziness; Iron deficiency anemia due to chronic blood loss; History of Clostridium difficile infection; History of ulcerative colitis; Encounter to establish care Start: 06-08-2024 End: 06-08-2024 Emergency department patient visit Dr. Ruben Moyer DO Work Phone: -Emergency Department Work Phone: Start: 06-08-2024 End: 06-08-2024 ambulatory DESIRE MOYER Facility:[facility] Start: 06-08-2024 End: 06-08-2024 Patient encounter procedure Tomasz Childs APRN.HAMMER SMITH Work Phone: [facility] Comment on above: Vomiting, unspecifie d vomiting type, unspecified whether nausea present (Primary Dx); Syncope, unspecified syncope type Start: 05-28-2024 End: 05-28-2024 Patient encounter procedure Desire Moyer DO Work Phone: [facility] [place] Comment on above: Loose stools (Primar y Dx); Nausea and vomiting, unspecified vomiting type; Overweight with body mass index (BMI) of 25 to 25.9 in adult Start: 05-28-2024 End: 05-28-2024 Telemedicine consultation with patient Desire Moyer DO Work Phone: [facility] [place] Start: 05-28-2024 End: 05-28-2024 ambulatory DESIREMISHA MOYER Facility:[facility] Start: 05-18-2024 End: 05-18-2024 ambulatory Desire Ramirez João DO Work Phone: [facility] [place] Comment on above: Iron infusions Start: 05-18-2024 End: 05-18-2024 E-mail encounter from caregiver Evelyne Jean Carlos Work Phone: Hematology/Oncology Start: 05-18-2024 End: 05-18-2024 Patient encounter procedure Desire Moyer DO Work Phone: [facility] [place] Comment on above: Health concerns Start: 05-11-2024 End: 05-11-2024 ambulatory Treatment Rm 14 Elieser [facility] Work Phone: Hematology/Oncology Comment on above: Iron deficiency anem ia due to chronic blood loss (Primary Dx); Ulcerative colitis with rectal bleeding, unspecified location (HCC) Start: 05-10-2024 End: 05-10-2024 Telephone encounter Edwina POSADAS Hematology/Oncology Comment on above: Social Work Services Start: 05-05-2024 End: 05-14-2024 Telephone encounter Evelyne Evangelista Work Phone: Hematology/Oncology Comment on above: Appointment Start: 04-27-2024 End: 05-10-2024 Follow-up encounter Sonja Sarmiento PA-C Work Phone: [facility] [place] Comment on above: C. difficile diarrhe a (Primary Dx); Ulcerative pancolitis with rectal bleeding (HCC) Start: 04-27-2024 End: 05-06-2024 Telephone encounter Evelyne Evangelista Work Phone: Hematology/Oncology Comment on above: Patient Update Start: 04-23-2024 End: 04-23-2024 ambulatory Treatment Rm 18 Elieser [facility] Work Phone: Hematology/Oncology Comment on above: Iron deficiency anem ia due to chronic blood loss (Primary Dx); Ulcerative colitis with rectal bleeding, unspecified location (HCC) Start: 04-21-2024 End: 04-21-2024 ambulatory Treatment Rm 14 Elieser [facility] Work Phone: Hematology/Oncology Comment on above: Iron deficiency anem ia due to chronic blood loss (Primary Dx); Ulcerative colitis with rectal bleeding, unspecified location (HCC); B12 deficiency Start: 04-20-2024 End: 04-20-[address] [facility] Start: 04-20-2024 End: 04-20-2024 Office outpatient new 30 minutes Luis Franklin PA-C Work Phone: [facility] Comment on above: Acute URI (Primary D x) Start: 04-16-2024 End: 04-16-2024 ambulatory [facility] Facility:[facility] Start: 04-16-2024 End: 04-16-2024 Patient encounter procedure Desire Moyer DO Work Phone: [facility] [place] Comment on above: B12 deficiency (Prim jonathan Dx); Elevated liver enzymes; Ulcerative colitis with other complication, unspecified location (HCC); Folic acid deficiency; Overweight with body mass index (BMI) of 25 to 25.9 in adult Start: 04-16-2024 End: 04-16-2024 ambulatory Evelyne Evangelista Work Phone: Hematology/Oncology Comment on above: Vitamin B12 deficien cy; Folic acid deficiency Start: 04-16-2024 End: 04-16-2024 Patient encounter procedure Evelyne Evangelista Work Phone: Hematology/Oncology Start: 04-09-2024 End: 04-12-2024 Telephone encounter Evelynerichard Evangelista Work Phone: Hematology/Oncology Comment on above: New Patient Start: 04-05-2024 End: 04-06-2024 Orders Only Desire Moyer DO Work Phone: [facility] [place] Comment on above: Vitamin B12 deficien cy (Primary Dx); Folic acid deficiency Start: 04-01-2024 End: 04-01-2024 ambulatory [place] BRO MOYER Facility:[facility] Start: 04-01-2024 End: 04-02-2024 Telephone encounter Desire Moyer DO Work Phone: [facility] [place] Start: 03-31-2024 End: 03-31-2024 ambulatory DESIRE BRO JOÃO Facility:[facility] Start: 03-31-2024 End: 03-31-2024 ambulatory SONJA SARMIENTO Facility:[facility] Start: 03-31-2024 End: 03-31-2024 Patient encounter procedure Sonja Sarmiento PA-C Work Phone: [facility] [place] Comment on above: Ulcerative pancoliti s with rectal bleeding (HCC) (Primary Dx); Bilateral lower abdominal cramping Start: 03-26-2024 End: 04-01-2024 ambulatory Giana Arceo PA-C Work Phone: [facility] [place] Comment on above: Flare up Start: 01-18-2024 End: 01-18-2024 Emergency department patient visit Dustin Madelaine Facility:[facility] Start: 12-23-2023 End: 12-23-2023 ambulatory Giana Arceo PA-C Work Phone: [facility] [place] Comment on above: Labs Start: 12-12-2023 End: 12-12-2023 Patient encounter procedure Desire Bro João DO Work Phone: [facility] [place] Comment on above: Need for history and physical examination for employment (Primary Dx); Anxiety with depression; Class 1 obesity with body mass index (BMI) of 30.0 to 30.9 in adult, unspecified obesity type, unspecified whether serious comorbidity present Start: 12-12-2023 End: 12-12-2023 ambulatory DESIRE BRO JOÃO Facility:[facility] Start: 12-04-2023 End: 12-04-2023 ambulatory [place] Bro João DO Work Phone: [facility] [place] Start: 12-04-2023 End: 12-04-2023 Patient encounter procedure [place] Bro João DO Work Phone: [facility] [place] Comment on above: Work physical Start: 10-17-2023 End: 10-17-2023 Patient encounter procedure [place] Bro João DO Work Phone: [facility] [place] Comment on above: Elevated alkaline ph osphatase level (Primary Dx); Ulcerative colitis with other complication, unspecified location (HCC); Screening for thyroid disorder; Screening for lipid disorders Start: 10-17-2023 End: 10-17-2023 ambulatory DEISRE MOYER Facility:[facility] Start: 10-03-2023 ambulatory GIANA ARCEO Facility: [facility] Start: 10-03-2023 End: 10-03-2023 Subsequent hospital visit by physician Us Hart [facility] Comment on above: Elevated alkaline ph osphatase level [R74.8] Start: 09-21-2023 Orders Only [facility] Arce[facility]-C [facility] Comment on above: Elevated alkaline ph osphatase level (Primary Dx) Start: 09-15-2023 End: 09-15-2023 Patient encounter procedure Giana Arceo PA-C [facility] Comment on above: Ulcerative pancoliti s with rectal bleeding (HCC) (Primary Dx); Encounter for screening for other viral diseases Start: 09-08-2023 Telephone encounter Dora whitmore MD Work Phone: OB/Gynecology Comment on above: IUD Removal; Orders Start: 08-19-2023 ambulatory Dora Polo Work Phone: OB/Gynecology Comment on above: IUD Start: 06-23-2023 ambulatory Judy smith APRN.CNM Work Phone: OB/Gynecology Comment on above: 1st period after bir th Start: 05-27-2023 End: 05-27-2023 Patient encounter procedure Dora Tamayo MD Work Phone: OB/Gynecology Comment on above: Encounter for IUD in sertion (Primary Dx) Start: 04-29-2023 End: 04-29-2023 Patient encounter procedure Dora Tamayo MD Work Phone: OB/Gynecology Comment on above: care and examination (Primary Dx); Screening for malignant neoplasm of cervix; Special screening examination for human papillomavirus (HPV) Start: 03-18-2023 End: 03-19-2023 Evaluation and management of inpatient [facility] Work Phone: Start: 02-24-2023 End: 02-24-2023 ambulatory [facility] Work Phone: Start: 02-24-2023 End: 02-24-2023 Patient encounter procedure [facility] Work Phone: Start: 02-21-2023 End: 02-21-2023 Patient encounter procedure Judy Davis APRN.MARYM Work Phone: OB/Gynecology Comment on above: 36 weeks gestation o f (Primary Dx); Encounter for supervision of normal first in third trimester; Ulcerative colitis with other complication, unspecified location (HCC) Encounter for ultras ound to check growth (Primary Dx); Ulcerative colitis with complication, unspecified location (HCC); 36 weeks gestation of Start: 02-07-2023 End: 02-07-2023 Patient encounter procedure Em Sampson APRN.CNM Work Phone: OB/Gynecology Comment on above: 34 weeks gestation o f (Primary Dx); Encounter for supervision of normal first in third trimester Start: 01-24-2023 End: 01-24-2023 Patient encounter procedure Judy Davis APRN.SUSSY Work Phone: OB/Gynecology Comment on above: Anemia during pregna ncy in third trimester (Primary Dx); 32 weeks gestation of ; Vaginal discharge during in third trimester; Ulcerative colitis with other complication, unspecified location (HCC) Encounter for ultras ound to check growth (Primary Dx); Ulcerative colitis with complication, unspecified location (HCC); 32 weeks gestation of Start: 01-19-2023 ambulatory Dora Polo Work Phone: OB/Gynecology Comment on above: Cramping Start: 01-03-2023 End: 01-03-2023 ambulatory Chair 7 [facility] Work Phone: Hematology/Oncology Comment on above: Iron deficiency anem ia due to chronic blood loss (Primary Dx); Ulcerative colitis with rectal bleeding, unspecified location (HCC) Start: 01-02-2023 ambulatory Dora Polo Work Phone: OB/Gynecology Comment on above: Bv Start: 12-31-2022 Telephone encounter Tania zhang 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.HAMMER SMITH Work Phone: OB/Gynecology Comment on above: Opened In Error 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 - O ther (PRAF) Start: 12-30-2022 Telephone encounter Deepali fuller MD Work Phone: OB/Gynecology Comment on above: Orders Start: 12-27-2022 End: 12-27-2022 Patient encounter procedure Em Sampson 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.CNM Work Phone: OB/Gynecology Comment on above: Encounter for superv ision of normal first in third trimester (Primary Dx); 28 weeks gestation of ; Need for vaccination; Rh negative status during in third trimester; Bacterial vaginitis Start: 12-27-2022 End: 12-27-2022 ambulatory Chair 8 [facility] Work Phone: Hematology/Oncology Comment on above: Iron deficiency anem ia due to chronic blood loss (Primary Dx); Ulcerative colitis with rectal bleeding, unspecified location (HCC) Start: 12-16-2022 End: 12-16-2022 ambulatory Chair 7 [facility] Work Phone: Hematology/Oncology Comment on above: Iron deficiency anem ia due to chronic blood loss (Primary Dx); Ulcerative colitis with rectal bleeding, unspecified location (HCC) Start: 12-11-2022 ambulatory Tania Martinez 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.HAMMER SMITH Work Phone: OB/Gynecology Comment on above: Bv Start: 12-06-2022 ambulatory Em Sampson 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.CNM Work Phone: OB/Gynecology Comment on above: Glucose test Start: 12-02-2022 End: 12-02-2022 Patient encounter procedure Em Mejias 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.HAMMER SMITH Work Phone: [facility] Comment on above: Vaginal discomfort ( Primary Dx); Vaginal itching Start: 11-29-2022 End: 11-29-2022 Patient encounter procedure Deepali Blanco MD Work Phone: OB/Gynecology Comment on above: 24 weeks gestation o f (Primary Dx); Encounter for supervision of normal first in second trimester; Need for influenza vaccination Start: 11-05-2022 Telephone encounter Dora whitmore MD Work Phone: OB/Gynecology Comment on above: Orders Start: 10-31-2022 Telephone encounter Leonarda Rivera RN Obstetrics/Gynecology Comment on above: 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 - O ther (PRAF 2) Start: 10-22-2022 End: 10-22-2022 Patient encounter procedure Marjorie Tejeda 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.HAMMER SMITH Work Phone: Internal Medicine [place] Comment on above: Tachycardia (Primary Dx); Palpitations; Chest pain, unspecified type; Shortness of breath Start: 10-14-2022 Non-patient / Non-visit Dr. Kamla Kay Work Phone: [facility] Start: 10-14-2022 End: 10-14-2022 Emergency department patient visit Dr. Britney Kay Work Phone: [facility] Department Work Phone: Start: 10-14-2022 End: 10-14-2022 Patient encounter procedure Tomasz Childs 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.HAMMER SMITH Work Phone: [facility] Comment on above: Chest pain, unspecif ied type (Primary Dx) Start: 10-11-2022 Refill Giana Kalka PA-C Work Phone: [facility] Comment on above: Refill Request Start: 10-02-2022 End: 10-02-2022 Patient encounter procedure Giana Harriska PA-C Work Phone: [facility] Comment on above: Ulcerative pancoliti s with other complication (HCC) (Primary Dx) Start: 09-20-2022 ambulatory Giana Kalka PA-C Work Phone: [facility] Comment on above: Humira Start: 09-18-2022 ambulatory [facility] Provider Faye Neil Comment on above: rescheduling colonos copy Start: 09-18-2022 E-mail encounter julieta huggins caregiver [facility] Provider RASHAAD REICH Start: 09-05-2022 ambulatory Dora Polo Work Phone: OB/Gynecology Comment on above: Nipt test Start: 09-04-2022 End: 09-04-2022 ambulatory Ana Rico MD Work Phone: [facility] Hematology and Oncology Comment on above: Iron deficiency anem ia due to chronic blood loss (Primary Dx); B12 deficiency; Anemia affecting , antepartum; Ulcerative pancolitis with rectal bleeding (HCC) Start: 09-04-2022 End: 09-04-2022 Patient encounter procedure Ana Rico MD Work Phone: [facility] Start: 09-03-2022 End: 09-03-2022 Patient encounter procedure Dora Tamayo MD Work Phone: OB/Gynecology Comment on above: Encounter for superv ision of normal first in first trimester (Primary Dx); 12 weeks gestation of ; Ulcerative colitis with complication, unspecified location (HCC) Encounter for (NT) n uchal translucency scan (Primary Dx); Encounter for supervision of normal first in first trimester; 12 weeks gestation of Start: 08-29-2022 ambulatory Em Sampson APRN.CNM Work Phone: OB/Gynecology Comment on above: Question regarding B acterial Vaginosis NAAT Start: 08-27-2022 End: 08-27-2022 Patient encounter procedure Em Sampson APRN.CNM Work Phone: OB/Gynecology Comment on above: Vaginal discharge (P rimary Dx) Start: 08-12-2022 Telephone encounter Giana CASILLASC Work Phone: [facility]enter[facility] [place] Comment on above: Patient Update Start: 08-08-2022 Telephone encounter Dora whitmore MD Work Phone: Obstetrics/Gynecology Comment on above: 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 - O ther (PRAF ) Start: 08-06-2022 ambulatory Giana HAUSER-C Work Phone: [facility] Start: 08-06-2022 End: 08-06-2022 Patient encounter procedure Dora Tamayo MD Work Phone: OB/Gynecology Comment on above: Encounter for superv ision of normal first in first trimester (Primary Dx); Other ulcerative colitis without complication (HCC) Upcoming appointment s Start: 08-01-2022 End: 04-03-2023 Patient requested procedure Dora Tamayo MD Work Phone: [facility] Work Phone: Start: 06-28-2022 End: 06-28-2022 ambulatory Ana Rico MD Work Phone: [facility] Hematology [facility] On[facility] Comment on above: Iron deficiency anem ia due to chronic blood loss (Primary Dx); Ulcerative pancolitis with rectal bleeding (HCC) Start: 06-28-2022 End: 06-28-2022 Patient encounter procedure Ana Rico MD Work Phone: [facility] Start: 06-21-2022 End: 06-21-2022 Patient encounter procedure Isabella Yeboah APRN.HAMMER SMITH Work Phone: OB/Gynecology Comment on above: Encounter for gyneco logical examination (general) (routine) without abnormal findings (Primary Dx); Screening for cervical cancer; Screen for STD (sexually transmitted disease); 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) Start: 06-21-2022 End: 06-21-2022 Patient encounter status Isabella Yeboah APRN.HAMMER SMITH Work Phone: OB/Gynecology Start: 06-10-2022 End: 06-10-2022 Patient encounter procedure Giana HAUSER-C Work Phone: [facility] Comment on above: Ulcerative pancoliti s with rectal bleeding (HCC) (Primary Dx); Encounter for screening for other viral diseases Start: 05-30-2022 ambulatory Giana Arceo PA-C Work Phone: [facility] Comment on above: Question regarding C ALPROTECTIN,FECAL Start: 05-01-2022 End: 05-01-2022 Office outpatient visit 15 minutes Braden Cassius GIPSON Work Phone: [facility] Comment on above: Sore throat (Primary Dx); Viral URI Start: 04-05-2022 ambulatory Giana CASILLASC [facility] Comment on above: Changing medicine Start: 03-20-2022 Telephone encounter Britney whipple MD Work Phone: [facility] Comment on above: Patient Question Start: 03-15-2022 Telephone encounter Giana groves PA-C Work [facility] Comment on above: Medication Authoriza tion Start: 02-28-2022 End: 02-28-2022 ambulatory Ana Rico MD Work Phone: [facility] Hematology and Oncology Comment on above: Iron deficiency anem ia due to chronic blood loss (Primary Dx); Ulcerative pancolitis with rectal bleeding (HCC); Thrombocytosis Start: 02-28-2022 End: 02-28-2022 Patient encounter procedure Ana Rico MD Work Phone: [facility] Start: 01-02-2022 End: 01-02-2022 Patient encounter procedure Britney Kay MD Work Phone: Internal Medicine [place] Comment on above: Syncope, unspecified syncope type (Primary Dx); Ulcerative pancolitis without complication (HCC); Moderate episode of recurrent major depressive disorder (HCC) Start: 12-21-2021 End: 12-21-2021 Patient encounter procedure Britney Kay MD Work Phone: [facility] Comment on above: Moderate episode of recurrent major depressive disorder (HCC) (Primary Dx); Need for influenza vaccination Start: 12-17-2021 ambulatory Giana CASILLASC Work Phone: [facility] Comment on above: Update Start: 12-16-2021 End: 12-16-2021 [facility] Start: 12-16-2021 End: 12-16-2021 Patient encounter procedure Em Mejias 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.HAMMER SMITH Work Phone: [facility] Comment on above: Lower abdominal pain (Primary Dx) Start: 12-14-2021 Refill Giana Kalka PA-C Work Phone: [facility] Comment on above: Refill Request Start: 12-13-2021 ambulatory Giana Kalka PA-C [facility] Comment on above: [facility] Start: 11-30-2021 End: 11-30-2021 Patient encounter procedure Giana Kalka PA-C Work Phone: [facility] Comment on above: Ulcerative pancoliti s without complication (HCC) (Primary Dx); Vitamin D deficiency Start: 10-01-2021 Refill Giana Kalka PA-C Work Phone: [facility] Comment on above: Refill Request Start: 09-27-2021 Refill Giana Kalka PA-C Work Phone: [facility] Comment on above: Refill Request Start: 09-26-2021 End: 09-26-2021 Patient encounter procedure Giana Harriska PA-C Work Phone: [facility] Comment on above: Ulcerative pancoliti s with rectal bleeding (HCC) (Primary Dx); Elevated fecal calprotectin; Other iron deficiency anemia; Encounter for screening for other viral diseases Start: 09-07-2021 Telephone encounter Britney whipple MD Work Phone: [facility] Comment on above: Forms Start: 08-21-2021 Refill Laquita Adams MD Work Phone: [facility] Comment on above: Refill Request Start: 08-02-2021 ambulatory Giana Kalka PA-C Work Phone: [facility] Comment on above: Whipworm Start: 08-02-2021 Telephone encounter Giana groves PA-C Work Phone: [facility] [place] Comment on above: Orders Start: 06-26-2021 Telephone encounter Giana groves PA-C [facility] Comment on above: Results Start: 06-22-2021 End: 06-22-2021 ambulatory Ana Rico MD Work Phone: [facility] Hematology [facility] Oncology Comment on above: Iron deficiency anem ia due to chronic blood loss (Primary Dx); Ulcerative pancolitis with rectal bleeding (HCC); Thrombocytosis Start: 06-22-2021 End: 06-22-2021 Patient encounter procedure Ana Rico MD Work Phone: [facility] Start: 06-20-2021 Telephone encounter Giana groves PA-C Work Phone[facility] Comment on above: Appointment Procedures Date Procedure Procedure Detail Performing Clinician Start: 10-11-[address] Dustin Burkett MD Work Phone: Start: 10-11-2024 Lymphocyte percent differential count Dr. Dustin Burkett MD Work Phone: Start: 10-11-[address] Dustin Burkett MD Work Phone: Start: 10-06-2024 MENINGOCOCCAL B VACC INE (BEXSERO) Felipa Whittington MD Work Phone: Start: 09-24-2024 Ct abdomen & pelvis w/contrast material Karolina Yu 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.HAMMER SMITH Work Phone: Start: 10-03-2023 Us abdominal real ti me w/image limited Giana Arceo PA-C Work Phone: Start: 05-27-2023 UA DIP,URINE HCG (POC) Dora Tamayo MD Work Phone: Start: 02-21-2023 URINE OB DIP B/O eBtty Davis 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.CNM Work Phone: Start: 02-21-2023 Us preg uterus after 1st trimest 03/10 gestation Dora Tamayo MD Work Phone: Start: 02-07-2023 URINE OB DIP B/O Boubacar Sampson 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.CNM Work Phone: Start: 01-24-2023 URINE OB DIP B/O Betty Davis 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.CNM Work Phone: Start: 01-24-2023 Us preg uterus after 1st trimest 03/10 gestation Dora Tamayo MD Work Phone: Start: 12-27-2022 URINE OB DIP B/O Boubacar Sampson 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.CNM Work Phone: Start: 12-02-2022 Urnls dip stick/tabl et rgnt auto w/o microscopy Em Mejias 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.HAMMER SMITH Work Phone: Start: 11-29-2022 INFLUENZA VACCINE, A GE 6 MO - 64 YR, QUADRIVALENT (AFLURIA, FLULAVAL, FLUZONE) Deepali Blanco MD Work Phone: Start: 11-29-2022 URINE OB DIP B/O Deepali guevara MD Work Phone: Start: 10-14-2022 CT angiography of ch est with contrast Dr. Britney Kay Work Phone: Start: 10-14-2022 Plain chest X-ray Dr. Tish Kay Work Phone: Start: 09-03-2022 URINE OB DIP B/O Dora Tamayo MD Work Phone: Start: 09-03-2022 Us nuchal translucency 1st gestation Dora Tamayo MD Work Phone: Start: 08-27-2022 BACTERIAL VAGINOSIS NAAT Em Sampson 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.CNM Work Phone: Start: 08-27-2022 Iadna trichomonas va ginalis amplified probe tech Em Sampson APRN.CNM Work Phone: Start: 05-01-2022 STREP A MOLECULAR (POC) Flaquita Sanches PA-C Work Phone: Start: 12-21-2021 INFLUENZA VACCINE QUADRIVALENT 6 MO - 64 YRS IM Britney Kay MD Work Phone: Start: 12-16-2021 Computed tomography of abdomen and pelvis with intravenous contrast Start: 12-16-2021 Plain chest X-ray Start: 05-11-2021 Adult depression scr eening assessment Giana Arceo PA-C Work Phone: SARS-CoV-2 & FLU Ant igen (Rapid) Plan of Treatment Date Care Activity Detail Author Start: 12-27-2032 Urine microalbumin profile DTaP,Tdap,Td Vaccine (8 - Td or Tdap) [facility] Start: 10-06-2025 GC (Gonorrhea) Screening (18-24) GC (Gonorrhea) Screening (18-24) [facility] Comment on above: Postponed from 08/07/2023 (Declined at t his time) Start: 10-06-2025 Screening for Chlamydia trachomatis Chlamydia Screening () [facility] Comment on above: Postponed from 08/07/2023 (Declined at t his time) Start: 10-06-2025 Shingrix Vaccine (1 of 2) Shingrix Vaccine (1 of 2) [facility] Comment on above: Postponed from 2020 (Declined at t his time) Start: 06-21-2025 PAP TESTING PAP TESTING [facility] Start: 06-21-2025 Screening for malignant neoplasm of cervix Pap Testing [facility] Start: 04-08-2025 Meningococcal B Vaccine (2 of 2 - Bexsero SCDM 2-dose series) Meningococcal B Vaccine (2 of 2 - Bexsero SCDM 2-dose series) [facility] Start: 01-27-2025 End: 01-27-2025 Patient encounter procedure 01/27/2025 10:55 AM EST Office Visit [facility] [address] [place] [address] Giana Arceo PA-C [address] [facility] [address] [place] [id number] follow up for colonoscopy [facility] Comment on above: follow up for colonoscopy Start: 12-21-2024 End: 12-21-2024 Patient encounter procedure 12/21/2024 9:45 AM EDT Office Visit [facility]astroenterology [place] [address] [facility] [phone] Carlos Woo MD [address] [place], [place] [id number] ulcerative pancolitis with rectal bleeding,unintentional weight loss, pt must be scheduled with a md per Karolina [facility] [place] Comment on above: ulcerative pancolitis with rectal bleedi ng,unintentional weight loss, pt must be scheduled with a md per Karolina Start: 11-16-2024 End: 11-16-2024 Patient encounter procedure 11/16/2024 10:30 AM EDT Appointment [facility] [place] [address] Jaren Szymanski MD [address] [facility] [place] [id number] Ulcerative pancolitis with rectal bleeding (HCC) [K51.011]; Anemia, unspecified type [D64.9]; Unintentional weight loss [R63.4] Ambulatory Surgery Comment on above: Ulcerative pancolitis with rectal bleedi ng (HCC) [K51.011]; Anemia, unspecified type [D64.9]; Unintentional weight loss [R63.4] Start: 11-11-2024 End: 11-11-2024 Patient encounter procedure [facility] Comment on above: est care Start: 11-10-2024 End: 11-10-2024 Patient encounter procedure [facility] Comment on above: 1 month follow up Ulcerative Colitis Start: 11-08-2024 Influenza vaccination [facility] Start: 10-14-2024 End: 10-14-2024 Patient encounter procedure 10/14/2024 8:30 AM EDT Appointment Radiology [address] [place] [phone] Radiology Comment on above: [id number] Start: 10-12-2024 End: 10-12-2024 Patient encounter procedure 10/12/2024 2:45 PM EDT Office Visit [facility] [address] [place] [phone] Carlos Woo MD [address] [place] [address] Consult per Giana Arceo [facility] [place] Comment on above: Consult per Giana Arceo Start: 10-11-2024 Verification routine [facility] Start: 10-11-2024 Admission procedure [facility] Start: 10-11-2024 Hospital admission, emergency, from emergency room, medical nature [facility] Start: 10-11-2024 [facility] Start: 10-11-2024 Enteric precautions [facility] Start: 10-11-2024 End: 10-11-2024 Patient encounter procedure 10/11/2024 1:40 PM EDT Office Visit OB/Gynecology [address] [place] [address] Keren Barrett MD [address] [place] [address] annual OB/Gynecology Comment on above: annual Start: 10-07-2024 End: 01-06-2025 ELISHA FERRARO ISOENZYM BL [facility] Work Phone: Comment on above: Expected: 10/07/2024, Expires: Start: 10-06-2024 End: 01-05-2025 25-hydroxyvitamin D3 [Mass/volume] in Serum or Plasma [facility] Comment on above: Expected: 10/06/2024, Expires: Start: 10-06-2024 End: 01-05-2025 C reactive protein [Mass/volume] in Serum or Plasma [facility] Comment on above: Expected: 10/06/2024, Expires: Start: 10-06-2024 End: 01-05-2025 Comprehensive metabolic 2000 panel - Serum or Plasma [facility] Work Phone: Comment on above: Expected: 10/06/2024, Expires: Start: 09-24-2024 End: 09-24-2024 Patient encounter procedure Cat Scan Comment on above: Ulcerative pancolitis with rectal bleedi ng (HCC) [K51.011]; Anemia, unspecified type [D64.9]; Unintentional weight loss [R63.4] Start: 09-17-2024 End: 12-17-2024 C reactive protein [Mass/volume] in Serum or Plasma C-REACTIVE PROTEIN Lab Routine Ulcerative pancolitis with rectal bleeding (HCC) Anemia, unspecified type Unintentional weight loss Expected: 09/17/2024, Expires: 12/17/2024 [facility] Comment on above: Expected: 09/17/2024, Expires: Start: 09-17-2024 End: 12-17-2024 CBC W Auto Differential panel - Blood COMPLETE BLOOD COUNT AND DIFFERENTIAL Lab Routine Ulcerative pancolitis with rectal bleeding (HCC) Anemia, unspecified type Unintentional weight loss Expected: 09/17/2024, Expires: 12/17/2024 [facility] Comment on above: Expected: 09/17/2024, Expires: Start: 09-17-2024 End: 12-17-2024 Cobalamin (Vitamin B12) [Mass/volume] in Serum or Plasma VITAMIN B12 Lab Routine Ulcerative pancolitis with rectal bleeding (HCC) Anemia, unspecified type Unintentional weight loss Expected: 09/17/2024, Expires: 12/17/2024 [facility] Comment on above: Expected: 09/17/2024, Expires: Start: 09-17-2024 End: 12-17-2024 Comprehensive metabolic 2000 panel - Serum or Plasma COMPREHENSIVE METABOLIC PANEL Lab Routine Ulcerative pancolitis with rectal bleeding (HCC) Anemia, unspecified type Unintentional weight loss Expected: 09/17/2024, Expires: 12/17/2024 [facility] Comment on above: Expected: 09/17/2024, Expires: Start: 09-17-2024 End: 12-17-2024 Ferritin [Mass/volume] in Serum or Plasma FERRITIN Lab Routine Ulcerative pancolitis with rectal bleeding (HCC) Anemia, unspecified type Unintentional weight loss Expected: 09/17/2024, Expires: 12/17/2024 [facility] Comment on above: Expected: 09/17/2024, Expires: Start: 09-17-2024 End: 12-17-2024 Iron and Iron binding capacity panel - Serum or Plasma IRON AND TIBC Lab Routine Ulcerative pancolitis with rectal bleeding (HCC) Anemia, unspecified type Unintentional weight loss Expected: 09/17/2024, Expires: 12/17/2024 [facility] Comment on above: Expected: 09/17/2024, Expires: Start: 09-17-2024 End: 09-17-2024 Patient encounter procedure 09/17/2024 10:55 AM EDT Office Visit [facility] [address] [facility] [place] [phone] Karolina Yu, [facility] [address] [facility] [place] [address] f/u for ulcerative pancolitis [facility] Comment on above: f/u for ulcerative pancolitis Start: 07-26-2024 End: 07-26-2024 Patient encounter procedure [facility] Comment on above: f/u for ulcerative pancolitis Start: 07-09-2024 End: 10-08-2024 25-hydroxyvitamin D3 [Mass/volume] in Serum or Plasma VITAMIN D 25 HYDROXY Lab Routine Iron deficiency anemia due to chronic blood loss B12 deficiency Vitamin D deficiency Expected: 07/09/2024, Expires: 10/08/2024 [facility] Comment on above: Expected: 07/09/2024, Expires: Start: 07-09-2024 End: 10-08-2024 CBC W Auto Differential panel - Blood COMPLETE BLOOD COUNT AND DIFFERENTIAL Lab STAT Iron deficiency anemia due to chronic blood loss B12 deficiency Expected: 07/09/2024, Expires: 10/08/2024 [facility] Work Phone: Comment on above: Expected: 07/09/2024, Expires: Start: 07-09-2024 End: 10-08-2024 Cobalamin (Vitamin B12) [Mass/volume] in Serum or Plasma VITAMIN B12 Lab Routine Iron deficiency anemia due to chronic blood loss B12 deficiency Expected: 07/09/2024, Expires: 10/08/2024 [facility] Comment on above: Expected: 07/09/2024, Expires: Start: 07-09-2024 End: 10-08-2024 Comprehensive metabolic 2000 panel - Serum or Plasma COMPREHENSIVE METABOLIC PANEL Lab STAT Iron deficiency anemia due to chronic blood loss B12 deficiency Expected: 07/09/2024, Expires: 10/08/2024 [facility] Comment on above: Expected: 07/09/2024, Expires: Start: 07-09-2024 End: 10-08-2024 Folate [Mass/volume] in Serum or Plasma FOLATE, SERUM Lab Routine Iron deficiency anemia due to chronic blood loss B12 deficiency Expected: 07/09/2024, Expires: 10/08/2024 [facility] Comment on above: Expected: 07/09/2024, Expires: Start: 07-09-2024 End: 10-08-2024 Methylmalonate [Moles/volume] in Serum or Plasma METHYLMALONIC ACID Lab Routine Iron deficiency anemia due to chronic blood loss B12 deficiency Expected: 07/09/2024, Expires: 10/08/2024 [facility] Comment on above: Expected: 07/09/2024, Expires: Start: 07-09-2024 End: 07-09-2024 ambulatory [facility] Comment on above: CBC/CMP(S)/FOLATE/B12/MMA/FERRITIN IRON STUDIES/VIT D* OV/EARLY LABS* Start: 07-08-2024 End: 10-07-2024 Ferritin [Mass/volume] in Serum or Plasma FERRITIN Lab Routine Iron deficiency anemia due to chronic blood loss B12 deficiency Expected: 07/08/2024, Expires: 10/07/2024 [facility] Comment on above: Expected: 07/08/2024, Expires: Start: 07-08-2024 End: 10-07-2024 Iron and Iron binding capacity panel - Serum or Plasma IRON AND TIBC Lab Routine Iron deficiency anemia due to chronic blood loss B12 deficiency Expected: 07/08/2024, Expires: 10/07/2024 [facility] Comment on above: Expected: 07/08/2024, Expires: Start: 07-02-2024 End: 07-02-2024 ambulatory [facility] Laboratory Comment on above: CBC/CMP/FOLATE/B12/MMA/FERRITIN IRON EBEN DIES/VIT D* OV/EARLY LABS* Start: 06-25-2024 End: 06-25-2024 Patient encounter procedure 06/25/2024 3:15 PM EDT Office Visit OB/Gynecology [address] [place] [address] Margarita Peacock APRN.HAMMER SMITH [address] [place] [address] rescheduled from 06/03 OB/Gynecology Comment on above: rescheduled from 06/03 Start: 06-08-2024 [facility] Start: 05-28-2024 End: 05-28-2024 ambulatory 05/28/2024 3:30 PM EDT Infusion Center Hematology/Oncology [address] [place] [address] 2ND FLOOR IRON SUCROSE 200 (5/5)/AUTH EXP?* Hematology/Oncology Comment on above: 2ND FLOOR IRON SUCROSE 200 (5/5)/AUTH EX P?* Start: 05-26-2024 End: 05-26-2024 ambulatory 05/26/2024 3:30 PM EDT Infusion Center Hematology/Oncology [address] [place] [address] 2ND FLOOR IRON SUCROSE 200 (4/5)/AUTH EXP?* Hematology/Oncology Comment on above: 2ND FLOOR IRON SUCROSE 200 (4/5)/AUTH EX P?* Start: 05-21-2024 End: 05-21-2024 Patient encounter procedure 05/21/2024 4:00 PM EDT Office Visit OB/Gynecology [address] [place] [address] Deepali Blanco MD [address] [place] [address] ANNUAL OB/Gynecology Comment on above: ANNUAL Start: 05-19-2024 End: 05-19-2024 ambulatory 05/19/2024 3:30 PM EDT Infusion Center Hematology/Oncology [address] [place] [address] 2ND FLOOR Hematology/Oncology Comment on above: 2ND FLOOR Start: 05-17-2024 End: 05-17-2024 ambulatory 05/17/2024 3:30 PM EDT Infusion Center Hematology/Oncology [address] [place] [address] 2ND FLOOR Hematology/Oncology Comment on above: 2ND FLOOR Start: 05-14-2024 End: 05-14-2024 Patient encounter procedure 05/14/2024 3:40 PM EST Office Visit OB/Gynecology [address] [place] [address] Dora Tamayo MD [address] [place] [address] ANNUAL OB/Gynecology Comment on above: ANNUAL Start: 05-11-2024 End: 05-11-2024 ambulatory Hematology/Oncology Comment on above: 2ND FLOOR pt needs to schedu le 2 more iron infusion. 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 Start: 05-07-2024 End: 05-07-2024 Patient encounter procedure 05/07/2024 9:20 AM EST Office Visit OB/Gynecology [address] [place] [address] Dora Tamayo MD [address] [place] [address] ANNUAL OB/Gynecology Comment on above: ANNUAL Start: 05-06-2024 End: 05-06-2024 ambulatory 05/06/2024 2:30 PM EST Infusion Center Hematology/Oncology [address] [place] [address] 2ND FLOOR Hematology/Oncology Comment on above: 2ND FLOOR Start: 04-30-2024 End: 04-30-2024 Patient encounter procedure 04/30/2024 1:20 PM EST Office Visit OB/Gynecology [address] [place] [address] Dora Tamayo MD [address] [place] [address] ANNUAL OB/Gynecology Comment on above: ANNUAL Start: 04-28-2024 End: 04-28-2024 ambulatory 04/28/2024 3:00 PM EST Infusion Center Hematology/Oncology [address] [place] [address] 2ND FLOOR Hematology/Oncology Comment on above: 2ND FLOOR Start: 04-26-2024 End: 04-26-2024 ambulatory 04/26/2024 3:00 PM EST Infusion Center Hematology/Oncology [address] [place] [address] 2ND FLOOR Hematology/Oncology Comment on above: 2ND FLOOR Start: 04-23-2024 End: 04-23-2024 ambulatory 04/23/2024 3:30 PM EST Infusion Center Hematology/Oncology [address] [place] [address] 2ND FLOOR Hematology/Oncology Comment on above: 2ND FLOOR Start: 04-21-2024 End: 04-21-2024 ambulatory 04/21/2024 3:30 PM EST Infusion Center Hematology/Oncology [address] [place] [address] 2ND FLOOR Hematology/Oncology Comment on above: 2ND FLOOR Start: 04-16-2024 End: 04-16-2024 Patient encounter procedure 04/16/2024 1:15 PM EST Office Visit [facility] [address] [place] [address] Desire Moyer DO [address] [place] [address] [place] [address] 6 mos follow up [facility] Medicine [place] Comment on above: 6 mos follow up Start: 04-16-2024 End: 04-16-2024 ambulatory Hematology/Oncology Comment on above: Transfer of care HANDY MAN/ANEMIA,Vitamin B1 2 deficiency [E53.8] Start: 04-02-2024 End: 07-02-2024 Choriogonadotropin.beta subunit [Units/volume] in Serum or Plasma HCG QUANTITATIVE Lab Routine B12 deficiency Expected: 04/02/2024, Expires: 07/02/2024 [facility] Work Phone: Comment on above: Expected: 04/02/2024, Expires: Start: 04-01-2024 End: 04-01-2024 ambulatory 04/01/2024 4:00 PM EST Results Only [facility] [address] [place] [address] [facility] Start: 04-01-2024 End: 07-01-2024 CBC W Auto Differential panel - Blood COMPLETE BLOOD COUNT AND DIFFERENTIAL Lab Routine Anemia, unspecified type Expected: 04/01/2024, Expires: 07/01/2024 [facility] Work Phone: Comment on above: Expected: 04/01/2024, Expires: Start: 04-01-2024 End: 07-01-2024 Cobalamin (Vitamin B12) [Mass/volume] in Serum or Plasma VITAMIN B12 Lab Routine Anemia, unspecified type Expected: 04/01/2024, Expires: 07/01/2024 [facility] Comment on above: Expected: 04/01/2024, Expires: Start: 04-01-2024 End: 07-01-2024 Ferritin [Mass/volume] in Serum or Plasma FERRITIN Lab Routine Anemia, unspecified type Expected: 04/01/2024, Expires: 07/01/2024 [facility] Comment on above: Expected: 04/01/2024, Expires: Start: 04-01-2024 End: 07-01-2024 Folate [Mass/volume] in Serum or Plasma FOLATE, SERUM Lab Routine Anemia, unspecified type Expected: 04/01/2024, Expires: 07/01/2024 [facility] Comment on above: Expected: 04/01/2024, Expires: Start: 04-01-2024 End: 07-01-2024 Iron and Iron binding capacity panel - Serum or Plasma IRON AND TIBC Lab Routine Anemia, unspecified type Expected: 04/01/2024, Expires: 07/01/2024 [facility] Comment on above: Expected: 04/01/2024, Expires: Start: 04-01-2024 End: 07-01-2024 RETICULOCYTE COUNT RETICULOCYTE COUNT Lab Routine Anemia, unspecified type Expected: 04/01/2024, Expires: 07/01/2024 [facility] Comment on above: Expected: 04/01/2024, Expires: Start: 11-09-2023 Influenza vaccination Influ[facility] Start: 10-17-2023 End: 10-17-2023 Patient encounter procedure 10/17/2023 2:30 [place] [address] [place] [address] est care [facility] Comment on above: est care Start: 10-17-2023 End: 10-16-2024 CBC W Auto Differential panel - Blood COMPLETE BLOOD COUNT AND DIFFERENTIAL Lab Routine Elevated alkaline phosphatase level Ulcerative colitis with other complication, unspecified location (HCC) Expected: 10/17/2023, Expires: 10/16/2024 [facility] Work Phone: Comment on above: Expected: 10/17/2023, Expires: Start: 10-17-2023 End: 10-16-2024 Comprehensive metabolic 2000 panel - Serum or Plasma COMPREHENSIVE METABOLIC PANEL Lab Routine Elevated alkaline phosphatase level Ulcerative colitis with other complication, unspecified location (HCC) Expected: 10/17/2023, Expires: 10/16/2024 [facility] Comment on above: Expected: 10/17/2023, Expires: Start: 10-17-2023 End: 10-16-2024 Lipid 1996 panel - Serum or Plasma LIPID PANEL BASIC Lab Routine Screening for lipid disorders Expected: 10/17/2023, Expires: 10/16/2024 [facility] Comment on above: Expected: 10/17/2023, Expires: Start: 10-17-2023 End: 10-16-2024 Thyrotropin [Units/volume] in Serum or Plasma THYROID STIMULATING HORMONE Lab Routine Screening for thyroid disorder Expected: 10/17/2023, Expires: 10/16/2024 [facility] Comment on above: Expected: 10/17/2023, Expires: Start: 10-17-2023 End: 01-16-2024 Urinalysis complete panel - Urine URINALYSIS, WITH MICROSCOPIC Lab Routine Elevated alkaline phosphatase level Ulcerative colitis with other complication, unspecified location (HCC) Expected: 10/17/2023, Expires: 01/16/2024 [facility] Comment on above: Expected: 10/17/2023, Expires: Start: 10-02-2023 Urine microalbumin profile [facility] Start: 09-24-2023 End: 09-24-2023 Patient encounter procedure 09/24/2023 11:30 AM EDT Office Visit OB/Gynecology [address] [place] [address] Em Sampson APRN.[facility] [address] [place] [address] IUD removal - wants OCP [facility] Comment on above: IUD removal - wants OCP Start: 09-19-2023 End: 09-19-2023 Patient encounter procedure 09/19/2023 9:40 AM EDT Office Visit OB/Gynecology [address] [place] [address] Dora Tamayo MD [address] [place] [address] IUD removal - wants OCP [facility] Comment on above: IUD removal - wants OCP Start: 09-15-2023 End: 12-15-2023 25-hydroxyvitamin D3 [Mass/volume] in Serum or Plasma [facility] Comment on above: Expected: 09/15/2023, Expires: Start: 09-15-2023 End: 12-15-2023 BLOOD TB SCREEN [facility] Comment on above: Expected: 09/15/2023, Expires: Start: 09-15-2023 End: 12-15-2023 C reactive protein [Mass/volume] in Serum or Plasma [facility] Comment on above: Expected: 09/15/2023, Expires: Start: 09-15-2023 End: 12-15-2023 CELIAC SCREEN WITH REFLEX [facility] Comment on above: Expected: 09/15/2023, Expires: Start: 09-15-2023 End: 12-15-2023 Cobalamin (Vitamin B12) [Mass/volume] in Serum or Plasma [facility] Comment on above: Expected: 09/15/2023, Expires: Start: 09-15-2023 End: 12-15-2023 Comprehensive metabolic 2000 panel - Serum or Plasma [facility] Work Phone: Comment on above: Expected: 09/15/2023, Expires: Start: 09-15-2023 End: 12-15-2023 Erythrocyte sedimentation rate [facility] Comment on above: Expected: 09/15/2023, Expires: Start: 09-15-2023 End: 12-15-2023 Hepatitis B virus surface Ag [Presence] in Serum [facility] Comment on above: Expected: 09/15/2023, Expires: Start: 09-15-2023 End: 09-15-2023 Patient encounter procedure 09/15/2023 1:00 PM EDT Office Visit [facility] [place] [id number] [facility] [place] [id number] Giana Arceo PA-C [address] [facility] [place] [address] follow up, ulcerative pancolitis, mychart request [facility] [place] Comment on above: follow up, ulcerative pancolitis, mychar t request Start: 08-07-2023 CHLAMYDIA SCREENING (18-24) CHLAMYDIA SCREENING (18-24) [facility] Start: 08-07-2023 GC (GONORRHEA) SCREENING (18-24) GC (GONORRHEA) SCREENING (18-24) [facility] Start: 08-07-2023 Screening for Chlamydia trachomatis Chlamydia Screening (18-24) [facility] Start: 06-22-2023 CHLAMYDIA SCREENING (18-24) CHLAMYDIA SCREENING (18-24) [facility] Start: 06-22-2023 GC (GONORRHEA) SCREENING (18-24) GC (GONORRHEA) SCREENING (18-24) [facility] Start: 06-22-2023 Screening for malignant neoplasm of cervix Cervical Cancer Screening [facility] Start: 03-19-2023 Patient discharge [facility] Start: 03-18-2023 Administration of blood product [facility] Start: 03-18-2023 [facility] Start: 03-18-2023 Administration of medication [facility] Start: 03-18-2023 Application of ice collar, cap or bag [facility] Start: 03-18-2023 Catheterization of vein [facility] Start: 03-18-2023 Introduction of urinary catheter [facility] Start: 03-18-2023 Measuring intake and output [facility] Start: 03-18-2023 Notification of physician [facility] Start: 03-18-2023 Procedure discontinued [facility] Start: 03-18-2023 Provision of activity privileges [facility] Start: 03-18-2023 Vital signs measurements [facility] Start: 03-18-2023 [facility] Start: 03-18-2023 Admission procedure [facility] Start: 03-18-2023 Consultation [facility] Start: 02-24-2023 Nonstress test [facility] Start: 02-24-2023 Obstetric monitoring [facility] Start: 02-24-2023 Vital signs measurements [facility] Start: 02-24-2023 [facility] Start: 12-30-2022 End: 03-31-2023 GEST GLUC ANTOLIN, 3-HR, 100 GM, FASTING GEST GLUC ANTOLIN, 3-HR, 100 GM, FASTING Lab Routine Abnormal glucose complicating Expected: 12/30/2022, Expires: 03/31/2023 [facility] Work Phone: Comment on above: Expected: 12/30/2022, Expires: Start: 12-29-2022 End: 02-28-2023 CBC W Auto Differential panel - Blood CBC + DIFF Lab Routine 24 weeks gestation of Encounter for supervision of normal first in second trimester Expected: 12/29/2022 (Approximate), Expires: 02/28/2023 [facility] Work Phone: Comment on above: Expected: 12/29/2022 (Approximate), Expi res: 02/28/2023 Start: 12-29-2022 End: 02-28-2023 GEST GLUC SCREEN, 1-HR, 50 GM, NON-FASTING GEST GLUC SCREEN, 1-HR, 50 GM, NON-FASTING Lab Routine 24 weeks gestation of Encounter for supervision of normal first in second trimester Expected: 12/29/2022 (Approximate), Expires: 02/28/2023 [facility] Work Phone: Comment on above: Expected: 12/29/2022 (Approximate), Expi res: 02/28/2023 Start: 12-29-2022 End: 02-28-2023 SYPHILIS TOTAL W/REFLEX SYPHILIS TOTAL W/REFLEX Lab Routine 24 weeks gestation of Encounter for supervision of normal first in second trimester Expected: 12/29/2022 (Approximate), Expires: 02/28/2023 [facility] Work Phone: Comment on above: Expected: 12/29/2022 (Approximate), Expi res: 02/28/2023 Start: 12-29-2022 End: 02-28-2023 TYPE + SCREEN TYPE + SCREEN Blood Bank Routine 24 weeks gestation of Encounter for supervision of normal first in second trimester Expected: 12/29/2022 (Approximate), Expires: 02/28/2023 [facility] Work Phone: Comment on above: Expected: 12/29/2022 (Approximate), Expi res: 02/28/2023 Start: 12-28-2022 End: 02-27-2023 CBC W Auto Differential panel - Blood CBC + DIFF Lab Routine Iron deficiency anemia due to chronic blood loss Expected: 12/28/2022 (Approximate), Expires: 02/27/2023 [facility] Work Phone: Comment on above: Expected: 12/28/2022 (Approximate), Expi res: 02/27/2023 Start: 12-28-2022 End: 02-27-2023 Ferritin [Mass/volume] in Serum or Plasma FERRITIN BLD Lab Routine Iron deficiency anemia due to chronic blood loss Expected: 12/28/2022 (Approximate), Expires: 02/27/2023 [facility] Work Phone: Comment on above: Expected: 12/28/2022 (Approximate), Expi res: 02/27/2023 Start: 12-28-2022 End: 02-27-2023 Iron and Iron binding capacity panel - Serum or Plasma IRON + TIBC Lab Routine Iron deficiency anemia due to chronic blood loss Expected: 12/28/2022 (Approximate), Expires: 02/27/2023 [facility] Work Phone: Comment on above: Expected: 12/28/2022 (Approximate), Expi res: 02/27/2023 Start: 12-05-2022 End: 02-04-2023 CBC W Auto Differential panel - Blood CBC + DIFF Lab Routine B12 deficiency Iron deficiency anemia due to chronic blood loss Expected: 12/05/2022 (Approximate), Expires: 02/04/2023 [facility] Work Phone: Comment on above: Expected: 12/05/2022 (Approximate), Expi res: 02/04/2023 Start: 12-05-2022 End: 02-04-2023 Cobalamin (Vitamin B12) [Mass/volume] in Serum or Plasma VITAMIN B12 BLOOD Lab Routine B12 deficiency Expected: 12/05/2022 (Approximate), Expires: 02/04/2023 [facility] Work Phone: Comment on above: Expected: 12/05/2022 (Approximate), Expi res: 02/04/2023 Start: 12-05-2022 End: 02-04-2023 Ferritin [Mass/volume] in Serum or Plasma FERRITIN BLD Lab Routine Iron deficiency anemia due to chronic blood loss Expected: 12/05/2022 (Approximate), Expires: 02/04/2023 [facility] Work Phone: Comment on above: Expected: 12/05/2022 (Approximate), Expi res: 02/04/2023 Start: 12-05-2022 End: 02-04-2023 Iron and Iron binding capacity panel - Serum or Plasma IRON + TIBC Lab Routine Iron deficiency anemia due to chronic blood loss Expected: 12/05/2022 (Approximate), Expires: 02/04/2023 [facility] Work Phone: Comment on above: Expected: 12/05/2022 (Approximate), Expi res: 02/04/2023 Start: 12-02-2022 End: 02-01-2023 Bacteria identified in Urine by Culture [facility] Work Phone: Comment on above: Expected: 12/02/2022, Expires: 3 Start: 11-08-2022 Influenza vaccination INFLUENZA (#1) [facility] Start: 11-05-2022 End: 11-06-2023 OBSTETRIC ULTRASOUND WHI OBSTETRIC ULTRASOUND WHI Anc Imaging Routine Encounter for follow-up ultrasound of anatomy Expected: 11/05/2022, Expires: 11/06/2023 [facility] Work Phone: Comment on above: Expected: 11/05/2022, Expires: 4 Start: 10-22-2022 End: 12-22-2022 Thyrotropin [Units/volume] in Serum or Plasma [facility] Work Phone: Comment on above: Expected: 10/22/2022, Expires: 3 Start: 10-02-2022 End: 12-02-2022 C reactive protein [Mass/volume] in Serum or Plasma C-REACTIVE PROTEIN (CRP) Lab Routine Ulcerative pancolitis with other complication (HCC) Expected: 10/02/2022, Expires: 12/02/2022 [facility] Work Phone: Comment on above: Expected: 10/02/2022, Expires: 3 Start: 10-02-2022 End: 12-02-2022 Comprehensive metabolic 2000 panel - Serum or Plasma COMP METABOLIC PANEL Lab Routine Ulcerative pancolitis with other complication (HCC) Expected: 10/02/2022, Expires: 12/02/2022 [facility] Work Phone: Comment on above: Expected: 10/02/2022, Expires: 3 Start: 10-02-2022 End: 12-02-2022 Erythrocyte sedimentation rate SED RATE WESTERGREN Lab Routine Ulcerative pancolitis with other complication (HCC) Expected: 10/02/2022, Expires: 12/02/2022 [facility] Work Phone: Comment on above: Expected: 10/02/2022, Expires: 3 Start: 09-03-2022 End: 11-03-2022 Chromosome 21 trisomy [Presence] in Blood or Tissue by Cytogenetics [facility] Work Phone: Comment on above: Expected: 09/03/2022, Expires: 3 Start: 09-03-2022 End: 09-04-2023 OBSTETRIC ULTRASOUND WHI OBSTETRIC ULTRASOUND WHI Anc Imaging Routine Ulcerative colitis with complication, unspecified location (HCC) Expected: 09/03/2022, Expires: 09/04/2023 [facility] Work Phone: Comment on above: Expected: 09/03/2022, Expires: 4 Start: 08-12-2022 End: 10-12-2022 ADALIMUMAB ACTIVITY AND NEUTRALIZING ANTIBODY ADALIMUMAB ACTIVITY AND NEUTRALIZING ANTIBODY Lab Routine Ulcerative pancolitis with rectal bleeding (HCC) Expected: 08/12/2022, Expires: 10/12/2022 [facility] Work Phone: Comment on above: Expected: 08/12/2022, Expires: 3 Start: 08-06-2022 End: 10-06-2022 CBC panel - Blood by Automated count CBC Lab Routine Encounter for supervision of normal first in first trimester Expected: 08/06/2022, Expires: 10/06/2022 [facility] Work Phone: Comment on above: Expected: 08/06/2022, Expires: Start: 08-06-2022 End: 10-06-2022 Hepatitis B virus surface Ag [Presence] in Serum HEP B SURF AG SCRN Lab Routine Encounter for supervision of normal first in first trimester Expected: 08/06/2022, Expires: 10/06/2022 [facility] Work Phone: Comment on above: Expected: 08/06/2022, Expires: 3 Start: 08-06-2022 End: 10-06-2022 Hepatitis C virus Ab [Presence] in Serum HEP C AB IA W/CONF SCRN Lab Routine Encounter for supervision of normal first in first trimester Expected: 08/06/2022, Expires: 10/06/2022 [facility] Work Phone: Comment on above: Expected: 08/06/2022, Expires: 3 Start: 08-06-2022 End: 10-06-2022 HIV 1+2 Ab [Presence] in Serum or Plasma by Immunoassay HIV 1 2 COMBO(AG/AB),WITH REFLEX TO DIFFERENTIATION Lab Routine Encounter for supervision of normal first in first trimester Expected: 08/06/2022, Expires: 10/06/2022 [facility] Work Phone: Comment on above: Expected: 08/06/2022, Expires: 3 Start: 08-06-2022 End: 08-07-2023 NUCHAL TRANSLUCENCY WHI NUCHAL TRANSLUCENCY WHI Anc Imaging Routine Encounter for supervision of normal first in first trimester Expected: 08/06/2022, Expires: 08/07/2023 [facility] Work Phone: Comment on above: Expected: 08/06/2022, Expires: 4 Start: 08-06-2022 End: 10-06-2022 RUBELLA IGG AB RUBELLA IGG AB Lab Routine Encounter for supervision of normal first in first trimester Expected: 08/06/2022, Expires: 10/06/2022 [facility] Work Phone: Comment on above: Expected: 08/06/2022, Expires: 3 Start: 08-06-2022 End: 10-06-2022 SYPHILIS TOTAL W/REFLEX SYPHILIS TOTAL W/REFLEX Lab Routine Encounter for supervision of normal first in first trimester Expected: 08/06/2022, Expires: 10/06/2022 [facility] Work Phone: Comment on above: Expected: 08/06/2022, Expires: 3 Start: 08-06-2022 End: 10-06-2022 TYPE + SCREEN TYPE + SCREEN Blood Bank Routine Encounter for supervision of normal first in first trimester Expected: 08/06/2022, Expires: 10/06/2022 [facility] Work Phone: Comment on above: Expected: 08/06/2022, Expires: 3 Start: 06-28-2022 End: 08-28-2022 CBC W Auto Differential panel - Blood CBC + DIFF Lab Routine Iron deficiency anemia due to chronic blood loss Ulcerative pancolitis with rectal bleeding (HCC) Expected: 06/28/2022 (Approximate), Expires: 08/28/2022 [facility] Work Phone: Comment on above: Expected: 06/28/2022 (Approximate), Expi res: 08/28/2022 Start: 06-28-2022 End: 08-28-2022 Ferritin [Mass/volume] in Serum or Plasma FERRITIN BLD Lab Routine Iron deficiency anemia due to chronic blood loss Ulcerative pancolitis with rectal bleeding (HCC) Expected: 06/28/2022 (Approximate), Expires: 08/28/2022 [facility] Work Phone: Comment on above: Expected: 06/28/2022 (Approximate), Expi res: 08/28/2022 Start: 06-28-2022 End: 08-28-2022 Iron and Iron binding capacity panel - Serum or Plasma IRON + TIBC Lab Routine Iron deficiency anemia due to chronic blood loss Ulcerative pancolitis with rectal bleeding (HCC) Expected: 06/28/2022 (Approximate), Expires: 08/28/2022 [facility] Work Phone: Comment on above: Expected: 06/28/2022 (Approximate), Expi res: 08/28/2022 Start: 06-10-2022 End: 08-10-2022 ADALIMUMAB ACTIVITY AND NEUTRALIZING ANTIBODY ADALIMUMAB ACTIVITY AND NEUTRALIZING ANTIBODY Lab Routine Ulcerative pancolitis with rectal bleeding (HCC) Expected: 06/10/2022, Expires: 08/10/2022 [facility] Work Phone: Comment on above: Expected: 06/10/2022, Expires: 3 Start: 06-10-2022 End: 06-11-2023 BLOOD TB SCREEN, INCUBATED BLOOD TB SCREEN, INCUBATED Lab Routine Encounter for screening for other viral diseases Expected: 06/10/2022, Expires: 06/11/2023 [facility] Work Phone: Comment on above: Expected: 06/10/2022, Expires: 4 Start: 06-10-2022 End: 08-10-2022 Hepatitis B virus surface Ag [Presence] in Serum HEP B SURF AG SCRN Lab Routine Encounter for screening for other viral diseases Expected: 06/10/2022, Expires: 08/10/2022 [facility] Work Phone: Comment on above: Expected: 06/10/2022, Expires: 3 Start: 2022 PAP TESTING PAP TESTING [facility] Start: 05-11-2022 Adult depression screening assessment DEPRESSION SCREENING [facility] Start: 05-11-2022 COVID-19 VACCINE (#1) COVID-19 VACCINE (#1) [facility] Comment on above: Postponed from 2006 (Declined at t his time) Postponed from 12/09 (Declined at this time) Start: 05-11-2022 COVID-19 VACCINE (1) COVID-19 VACCINE (1) [facility] Comment on above: Postponed from 2006 (Declined at t his time) Start: 11-30-2021 End: 01-30-2022 25-hydroxyvitamin D3 [Mass/volume] in Serum or Plasma VITAMIN D 25 HYDROXY Lab Routine Vitamin D deficiency Expected: 11/30/2021, Expires: 01/30/2022 [facility] Work Phone: Comment on above: Expected: 11/30/2021, Expires: Start: 11-08-2021 Influenza vaccination [facility] Start: 10-22-2021 End: 12-22-2021 CBC W Auto Differential panel - Blood CBC + DIFF Lab Routine Iron deficiency anemia due to chronic blood loss Expected: 10/22/2021 (Approximate), Expires: 12/22/2021 [facility] Work Phone: Comment on above: Expected: 10/22/2021 (Approximate), Expi res: 12/22/2021 Start: 10-22-2021 End: 12-22-2021 FERRITIN BLD FERRITIN BLD Lab Routine Iron deficiency anemia due to chronic blood loss Expected: 10/22/2021 (Approximate), Expires: 12/22/2021 [facility] Work Phone: Comment on above: Expected: 10/22/2021 (Approximate), Expi res: 12/22/2021 Start: 10-22-2021 End: 12-22-2021 IRON + TIBC IRON + TIBC Lab Routine Iron deficiency anemia due to chronic blood loss Expected: 10/22/2021 (Approximate), Expires: 12/22/2021 [facility] Work Phone: Comment on above: Expected: 10/22/2021 (Approximate), Expi res: 12/22/2021 Start: 09-26-2021 End: 11-26-2021 25-hydroxyvitamin D3 [Mass/volume] in Serum or Plasma VITAMIN D 25 HYDROXY Lab Routine Ulcerative pancolitis with rectal bleeding (HCC) Expected: 09/26/2021, Expires: 11/26/2021 [facility] Work Phone: Comment on above: Expected: 09/26/2021, Expires: 2 Start: 09-26-2021 End: 09-26-2022 BLOOD TB SCREEN, INCUBATED BLOOD TB SCREEN, INCUBATED Lab Routine Encounter for screening for other viral diseases Expected: 09/26/2021, Expires: 09/26/2022 [facility] Work Phone: Comment on above: Expected: 09/26/2021, Expires: 3 Start: 09-26-2021 End: 11-26-2021 CBC W Auto Differential panel - Blood CBC + DIFF Lab Routine Ulcerative pancolitis with rectal bleeding (HCC) Expected: 09/26/2021, Expires: 11/26/2021 [facility] Work Phone: Comment on above: Expected: 09/26/2021, Expires: 2 Start: 09-26-2021 End: 11-26-2021 Comprehensive metabolic 2000 panel - Serum or Plasma COMP METABOLIC PANEL Lab Routine Ulcerative pancolitis with rectal bleeding (HCC) Expected: 09/26/2021, Expires: 11/26/2021 [facility] Work Phone: Comment on above: Expected: 09/26/2021, Expires: 2 Start: 03-10-2021 DEPRESSION ASSESSMENT DEPRESSION ASSESSMENT [facility] Start: 2020 HEPATITIS A (1 of 2 - Risk 2-dose series) HEPATITIS A (1 of 2 - Risk 2-dose series) [facility] Start: 2020 Hepatitis A Vaccine (1 of 2 - Risk 2-dose series) Hepatitis A Vaccine (1 of 2 - Risk 2-dose series) [facility] Start: 2020 Pneumococcal vaccination Pneumococcal Vaccine (1 of 2 - PCV) [facility] Start: 2020 SHINGRIX VACCINE (1 of 2) SHINGRIX VACCINE (1 of 2) [facility] Start: 10-02-2019 CHLAMYDIA SCREENING (18-24) CHLAMYDIA SCREENING (18-24) [facility] Start: 10-02-2019 GC (GONORRHEA) SCREENING (18-24) GC (GONORRHEA) SCREENING (18-24) [facility] Start: 2017 Meningococcal B Vaccine (1 of 2 - Standard) Meningococcal B Vaccine (1 of 2 - Standard) [facility] Start: 2017 Meningococcal B Vaccine: Consider Based On Risk (1 of 2 - Patient Seeks Protection) Meningococcal B Vaccine: Consider Based On Risk (1 of 2 - Patient Seeks Protection) [facility] Start: 06-10-2015 PEDS TO ADULT TRANSITION ANNUAL ASSESSMENT PEDS TO ADULT TRANSITION ANNUAL ASSESSMENT [facility] Start: 2013 PEDS TO ADULT TRANSITION INITIAL DISCUSSION PEDS TO ADULT TRANSITION INITIAL DISCUSSION [facility] Start: 06-10-2011 Meningococcal B Vaccine: Consider Based On Risk (1 of 4 - Increased Risk) Meningococcal B Vaccine: Consider Based On Risk (1 of 4 - Increased Risk) [facility] Start: 06-10-2011 MENINGOCOCCAL B: Consider based on risk (1 of 2 - Risk Bexsero 2-dose series) MENINGOCOCCAL B: Consider based on risk (1 of 2 - Risk Bexsero 2-dose series) [facility] Start: 06-10-2011 MENINGOCOCCAL B: Consider based on risk (1 of 4 - Increased Risk Bexsero 2-dose series) MENINGOCOCCAL B: Consider based on risk (1 of 4 - Increased Risk Bexsero 2-dose series) [facility] Start: 06-10-2011 MENINGOCOCCAL B: Consider based on risk (1 of 4 - Increased Risk) MENINGOCOCCAL B: Consider based on risk (1 of 4 - Increased Risk) [facility] Start: 06-10-2007 PNEUMOCOCCAL (1 - PCV) PNEUMOCOCCAL (1 - PCV) [facility] Start: 06-10-2007 Pneumococcal vaccination [facility] Start: 2006 COVID-19 VACCINE (#1) COVID-19 VACCINE (#1) [facility] Start: 2002 HEPATITIS A (1 of 2 - Risk 2-dose series) HEPATITIS A (1 of 2 - Risk 2-dose series) [facility] Start: 2001 COVID-19 VACCINE (#1) COVID-19 VACCINE (#1) [facility] Bacteria identified in Urine by Culture URINE CULTURE Microbiology Routine Encounter for supervision of normal first in first trimester 08/06/2022 2:51 PM EDT [facility] Work Phone: BACTERIAL VAGINOSIS NAAT BACTERIAL VAGINOSIS NAAT Lab Routine Vaginal discharge during in third trimester 01/24/2023 1:47 PM EST [facility] Work Phone: Calprotectin [Mass/mass] in Stool CALPROTECTIN,FECAL Lab Routine Ulcerative pancolitis without complication (HCC) 08/02/2021 9:29 AM EDT [facility] Work Phone: Calprotectin [Mass/mass] in Stool CALPROTECTIN,FECAL Lab Routine Ulcerative pancolitis with rectal bleeding (HCC) Ordered: 09/26/2021 [facility] Work Phone: Comment on above: Ordered: 09/26/2021 Calprotectin [Mass/mass] in Stool CALPROTECTIN,FECAL Lab Routine Ulcerative pancolitis without complication (HCC) Ordered: 11/30/2021 [facility] Work Phone: Comment on above: Ordered: 11/30/2021 Calprotectin [Mass/mass] in Stool CALPROTECTIN,FECAL Lab Routine Ulcerative pancolitis with rectal bleeding (HCC) Ordered: 04/05/2022 [facility] Work Phone: Comment on above: Ordered: 04/05/2022 Calprotectin [Mass/mass] in Stool CALPROTECTIN,FECAL Lab Routine Ulcerative pancolitis with other complication (HCC) Ordered: 10/02/2022 [facility] Work Phone: Comment on above: Ordered: 10/02/2022 Calprotectin [Mass/mass] in Stool CALPROTECTIN,FECAL Lab Routine Ulcerative pancolitis with rectal bleeding (HCC) Ordered: 09/15/2023 [facility] Comment on above: Ordered: 09/15/2023 Calprotectin [Mass/mass] in Stool CALPROTECTIN,FECAL Lab Routine Ulcerative pancolitis with rectal bleeding (HCC) Ordered: 03/31/2024 [facility] Comment on above: Ordered: 03/31/2024 Calprotectin [Mass/mass] in Stool CALPROTECTIN,FECAL Lab Routine Ulcerative colitis with complication, unspecified location (HCC) Ordered: 10/06/2024 [facility] Comment on above: Ordered: 10/06/2024 GILBERT/TRICHOMONAS NAAT GILBERT/TRICHOMONAS NAAT Lab Routine Vaginal discharge during in third trimester 01/24/2023 1:47 PM [facility] Work Phone: End: 04-02-2025 CBC W Auto Differential panel - Blood COMPLETE BLOOD COUNT AND DIFFERENTIAL Lab Routine B12 deficiency Once per month for 3 Occurrences starting 04/02/2024 until 04/02/2025 [facility] Comment on above: Once per month for 3 Occurrences startin g 04/02/2024 until 04/02/2025 CBC W Auto Different ial panel - Blood COMPLETE BLOOD COUNT AND DIFFERENTIAL Lab Routine Ulcerative colitis with complication, unspecified location (HCC) 10/06/2024 2:23 PM T [facility] Chlamydia trachomatis+Neisseria gonorrhoeae DNA [Presence] in Unspecified specimen by MICHELE with probe detection GC/CHLAMYDIA DNA DET Lab Routine Encounter for gynecological examination (general) (routine) without abnormal findings Screen for STD (sexually transmitted disease) 06/21/2022 11:34 AM [facility] Work Phone: Chlamydia trachomatis+Neisseria gonorrhoeae DNA [Presence] in Unspecified specimen by MICHELE with probe detection GC/CHLAMYDIA DNA DET Lab Routine Encounter for supervision of normal first in first trimester 08/06/2022 2:51 PM [facility] Work Phone: Clostridioides difficile DNA [Presence] in Unspecified specimen by MICHELE with probe detection [facility] Clostridioides difficile toxin genes [Presence] in Stool by MICHELE with probe detection C. DIFFICILE PCR Lab Routine Ulcerative pancolitis with rectal bleeding (HCC) Ordered: 09/26/2021 [facility] Work Phone: Comment on above: Ordered: 09/26/2021 Clostridioides difficile toxin genes [Presence] in Stool by MICHELE with probe detection C. DIFFICILE PCR Lab Routine Ulcerative pancolitis with rectal bleeding (HCC) Ordered: 05/30/2022 [facility] Work Phone: Comment on above: Ordered: 05/30/2022 Clostridioides difficile toxin genes [Presence] in Stool by MICHELE with probe detection C. DIFFICILE PCR Lab Routine Ulcerative pancolitis with rectal bleeding (HCC) Ordered: 09/15/2023 [facility] Comment on above: Ordered: 09/15/2023 Clostridioides difficile toxin genes [Presence] in Stool by MICHELE with probe detection C. DIFFICILE PCR Lab Routine Diarrhea, unspecified type Ordered: 12/23/2023 [facility] Work Phone: Comment on above: Ordered: 12/23/2023 Clostridioides difficile toxin genes [Presence] in Stool by MICHELE with probe detection CLOSTRIDIUM DIFFICILE TOXIN BY PCR Lab Routine Ulcerative pancolitis with rectal bleeding (HCC) Ordered: 03/31/2024 [facility] Work Phone: Comment on above: Ordered: 03/31/2024 Clostridioides difficile toxin genes [Presence] in Stool by MICHELE with probe detection CLOSTRIDIUM DIFFICILE TOXIN BY PCR Lab Routine C. difficile diarrhea Ulcerative pancolitis with rectal bleeding (HCC) Ordered: 05/10/2024 [facility] Work Phone: Comment on above: Ordered: 05/10/2024 Clostridioides difficile toxin genes [Presence] in Stool by MICHELE with probe detection CLOSTRIDIUM DIFFICILE TOXIN BY PCR Lab Routine Ulcerative colitis with complication, unspecified location (HCC) Ordered: 10/06/2024 [facility] Comment on above: Ordered: 10/06/2024 End: 06-11-2023 COLONOSCOPY DIAGNOSTIC COLONOSCOPY DIAGNOSTIC Endoscopy Routine Ulcerative pancolitis with rectal bleeding (HCC) 1 Occurrences starting 06/10/2022 until 06/11/2023 [facility] Work Phone: Comment on above: 1 Occurrences starting 06/10/2022 until 06/11/2023 Comprehensive metabo lic 2000 panel - Serum or Plasma COMPREHENSIVE METABOLIC PANEL Lab Routine Hypokalemia Ordered: 06/22/2024 [facility] Work Phone: Comment on above: Ordered: 06/22/2024 End: 10-17-2025 CT Abdomen and Pelvis W contrast IV CT ABD/PEL W IVCON Radiology Routine Ulcerative pancolitis with rectal bleeding (HCC) Anemia, unspecified type Unintentional weight loss 1 Occurrences starting 09/17/2024 until 10/17/2025 [facility] Comment on above: 1 Occurrences starting 09/17/2024 until 10/17/2025 End: 09-17-2025 EGD DIAGNOSTIC EGD DIAGNOSTIC Endoscopy Routine Ulcerative pancolitis with rectal bleeding (HCC) Anemia, unspecified type Unintentional weight loss 1 Occurrences starting 09/17/2024 until 09/17/2025 [facility] Work Phone: Comment on above: 1 Occurrences starting 09/17/2024 until 09/17/2025 ENTERIC BACTERIAL PA RUPERTO BY PCR ENTERIC BACTERIAL PANEL BY PCR Lab Routine Ulcerative pancolitis with rectal bleeding (HCC) Ordered: 09/15/2023 [facility] Comment on above: Ordered: 09/15/2023 End: 09-17-2025 Flexible sigmoidoscopy study COLONOSCOPY DIAGNOSTIC Endoscopy Routine Ulcerative pancolitis with rectal bleeding (HCC) Anemia, unspecified type Unintentional weight loss 1 Occurrences starting 09/17/2024 until 09/17/2025 [facility] Comment on above: 1 Occurrences starting 09/17/2024 until 09/17/2025 Giardia lamblia+Cryptosporidium sp Ag [Presence] in Stool by Immunoassay CRYPTOSPORIDIUM AND GIARDIA ANTIGENS BY EIA Microbiology Routine Ulcerative pancolitis with rectal bleeding (HCC) Ordered: 09/15/2023 [facility] Comment on above: Ordered: 09/15/2023 Insertion intrauteri ne device iud INSERT INTRAUTERINE DEVICE Procedures Routine Encounter for IUD insertion Ordered: 05/27/2023 [facility] Work Phone: Comment on above: Ordered: 05/27/2023 Iron and Iron bindin g capacity panel - Serum or Plasma IRON AND TIBC Lab Routine Fatigue, unspecified type Ordered: 06/22/2024 [facility] Comment on above: Ordered: 06/22/2024 Lactoferrin [Presenc e] in Stool by Immunoassay [facility] Nucleic acid assay [facility] PANC ELASTASE, FECAL PANC ELASTA SE, FECAL Lab Routine Ulcerative pancolitis with rectal bleeding (HCC) Ordered: 09/15/2023 [facility] Comment on above: Ordered: 09/15/2023 PAP TEST PAP TEST Lab Misha quigley Screening for cervical cancer 06/21/2022 11:34 AM EDT [facility] Work Phone: Patient Education [facility] Work Phone: Patient referral [facility] Work Phone: Removal intrauterine device iud REMOVE INTRAUTERINE DEVICE Procedures Routine Encounter for IUD removal Ordered: 08/22/2023 [facility] Work Phone: Comment on above: Ordered: 08/22/2023 ROUTINE, GR OUP B STREP PCR ROUTINE, GROUP B STREP PCR Microbiology Routine 36 weeks gestation of Encounter for supervision of normal first in third trimester 02/21/2023 11:09 AM EST [facility] Work Phone: T VAGINALIS AMPLIFICATION T VAGINALIS AMPLIFICATION Lab Routine Encounter for supervision of normal first in first trimester 08/06/2022 2:51 PM EDT [facility] Work Phone: End: 10-20-2024 US Abdomen RUQ US ABD RIGHT UPPER QUADRANT Radiology Routine Elevated alkaline phosphatase level 1 Occurrences starting 09/21/2023 until 10/20/2024 [facility] Work Phone: Comment on above: 1 Occurrences starting 09/21/2023 until 10/20/2024 End: 05-16-2025 US Abdomen RUQ US ABD RIGHT UPPER QUADRANT Radiology Routine Elevated liver enzymes Ulcerative colitis with other complication, unspecified location (HCC) 1 Occurrences starting 04/16/2024 until 05/16/2025 [facility] Work Phone: Comment on above: 1 Occurrences starting 04/16/2024 until 05/16/2025 End: 11-05-2025 US Abdomen RUQ US ABD RIGHT UPPER QUADRANT Radiology Routine Ulcerative colitis with complication, unspecified location (HCC) 1 Occurrences starting 10/06/2024 until 11/05/2025 [facility] Comment on above: 1 Occurrences starting 10/06/2024 until 11/05/2025 End: 07-22-2025 XR Chest PA and Lateral XR CHEST 2V FRONTAL/LAT Radiology Routine Chest tightness 1 Occurrences starting 06/22/2024 until 07/22/2025 [facility] Comment on above: 1 Occurrences starting 06/22/2024 until 07/22/2025 [facility] Immunizations Immunization Date Immunization Notes Care Provider [facility] 10-06-2024 meningococcal B vaccine, recombinant, OMV, adjuvanted [facility]cf Provider [facility] 10-06-2024 pneumococcal conjuga te (PCV20) vaccine, 20 valent (PREVNAR 20) Ccf Provider [facility] 10-06-2024 pneumococcal Conjuga te, unspecified formulation Felipa Whittington MD Work Phone: [facility] 12-27-2022 RHO(D) immune globul in- IV or IM Deepali Blanco MD Work Phone: [facility] 12-27-2022 tetanus toxoid, redu jitendra diphtheria toxoid, and acellular pertussis vaccine, adsorbed Deepali Blanco MD Work Phone: [facility] 11-29-2022 influenza, injectabl e, quadrivalent, contains preservative Em Mejias 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[employer]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 [employer]ITH Work Phone: [facility] 11-29-2022 influenza virus vaccine, unspecified formulation Dora Tamayo MD Work Phone: [facility] 12-21-2021 influenza, injectabl e, quadrivalent, contains preservative Britney Kay MD Work Phone: [facility] Work Phone: 04-18-2021 hepatitis B vaccine, adult dosage Giana Kalka PA-C Work Phone: [facility] 02-20-2021 hepatitis B vaccine, adult dosage Giana Kalka PA-C Work Phone: [facility] Work Phone: 11-12-2019 Human Papillomavirus 9-valent vaccine Giana Kalka PA-C Work Phone: [facility] 11-12-2019 influenza, injectabl e, quadrivalent, preservative free Giana Kalka PA-C Work Phone: [facility] 10-16-2018 Human Papillomavirus 9-valent vaccine Giana Kalka PA-C Work Phone: [facility] 10-16-2018 tuberculin skin test ; purified protein derivative solution, intradermal [facility] Work Phone: [facility] 01-10-2018 influenza, injectabl e, quadrivalent, contains preservative Giana Kalka PA-C Work Phone: [facility] 06-18-2017 Human Papillomavirus 9-valent vaccine Giana Kalka PA-C Work Phone: [facility] 06-18-2017 meningococcal polysaccharide (groups A, C, Y and W-135) diphtheria toxoid conjugate vaccine (MCV4P) Giana Harriska PA-C Work Phone: [facility] 04-12-2017 influenza, injectabl e, quadrivalent, contains preservative Giana Kalka PA-C Work Phone: [facility] 02-03-2016 influenza, injectabl e, quadrivalent, contains preservative Giana Kalka PA-C Work Phone: [facility] 01-21-2015 influenza, injectabl e, quadrivalent, contains preservative Giana Kalka PA-C Work Phone: [facility] Work Phone: 01-06-2014 influenza, injectabl e, quadrivalent, preservative free Giana Arceo PA-C Work Phone: [facility] 10-01-2013 meningococcal polysaccharide (groups A, C, Y and W-135) diphtheria toxoid conjugate vaccine (MCV4P) Giana Arceo PA-C Work Phone: [facility] Work Phone: 10-01-2013 tetanus toxoid, redu jitendra diphtheria toxoid, and acellular pertussis vaccine, adsorbed Giana Arceo PA-C Work Phone: [facility] Work Phone: 10-01-2013 varicella virus vaccine Dereje Harriscase PA-C Work Phone: [facility] Work Phone: 12-12-2012 influenza virus vaccine, unspecified formulation Giana Arceo PA-C Work Phone: [facility] Work Phone: 12-28-2011 influenza virus vaccine, unspecified formulation Giana Arceo PA-C Work Phone: [facility] Work Phone: 02-04-2011 influenza virus vaccine, unspecified formulation Giana Arceo PA-C Work Phone: [facility] Work Phone: 11-25-2009 influenza virus vaccine, live, attenuated, for intranasal use Giana Arceo PA-C Work Phone: [facility] Work Phone: 05-01-2009 novel [id number], live virus for nasal administration [facility] DO Work Phone: [facility] 01-11-2009 novel [id number], live virus for nasal administration [facility] DO Work Phone: [facility] 12-29-2008 influenza virus vaccine, unspecified formulation Giana Kalka PA-C Work Phone: [facility] Work Phone: 02-13-2008 influenza virus vaccine, unspecified formulation Giana Harriska PA-C Work Phone: [facility] Work Phone: 10-15-2006 diphtheria, tetanus toxoids and acellular pertussis vaccine Giana Harriska PA-C Work Phone: [facility] 10-15-2006 measles, mumps and rubella virus vaccine Giana Harriska PA-C Work Phone: [facility] 10-15-2006 poliovirus vaccine, inactivated Giana Harriska PA-C Work Phone: [facility] 08-16-2004 pneumococcal conjuga te vaccine, 7 valent Giana Harriska PA-C Work Phone: [facility] Work Phone: 07-18-2003 diphtheria, tetanus toxoids and acellular pertussis vaccine Giana Harriska PA-C Work Phone: [facility] Work Phone: 07-18-2003 haemophilus influenz ae type b vaccine, HbOC conjugate Giana Harriska PA-C Work Phone: [facility] Work Phone: 07-18-2003 hepatitis B vaccine, pediatric or pediatric/adolescent dosage Giana Harriska PA-C Work Phone: [facility] Work Phone: 06-18-2002 hepatitis B vaccine, pediatric or pediatric/adolescent dosage Giana Harriska PA-C Work Phone: [facility] Work Phone: 06-18-2002 measles, mumps and rubella virus vaccine Giana Harriska PA-C Work Phone: [facility] Work Phone: 06-18-2002 pneumococcal conjuga te vaccine, 7 valent Giana Kalka PA-C Work Phone: [facility] Work Phone: 06-18-2002 varicella virus vaccine Dereje Harriska PA-C Work Phone: [facility] Work Phone: 2001 diphtheria, tetanus toxoids and acellular pertussis vaccine Giana Harriska PA-C Work Phone: [facility] Work Phone: 2001 haemophilus influenz ae type b vaccine, HbOC conjugate Giana Harriska PA-C Work Phone: [facility] Work Phone: 2001 influenza virus vaccine, unspecified formulation Giana Harriska PA-C Work Phone: [facility] Work Phone: 2001 poliovirus vaccine, inactivated Giana Harriska PA-C Work Phone: [facility] Work Phone: 2001 diphtheria, tetanus toxoids and acellular pertussis vaccine Giana Harriska PA-C Work Phone: [facility] Work Phone: 2001 haemophilus influenz ae type b vaccine, HbOC conjugate Giana Harriska PA-C Work Phone: [facility] Work Phone: 2001 pneumococcal conjuga te vaccine, 7 valent Giana Harriska PA-C Work Phone: [facility] Work Phone: 2001 poliovirus vaccine, inactivated Giana Kalka PA-C Work Phone: [facility] Work Phone: 2001 diphtheria, tetanus toxoids and acellular pertussis vaccine Giana Harriska PA-C Work Phone: [facility] Work Phone: 2001 haemophilus influenz ae type b vaccine, HbOC conjugate Giana Arceo PA-C Work Phone: [facility] Work Phone: 2001 pneumococcal conjuga te vaccine, 7 valent Giana Arceo PA-C Work Phone: [facility] Work Phone: 2001 poliovirus vaccine, inactivated Giana Arceo PA-C Work Phone: [facility] Work Phone: 2001 hepatitis B vaccine, pediatric or pediatric/adolescent dosage Giana Arceo PA-C Work Phone: [facility] Work Phone: NEGATED: Highlighted row has not occurred!12-27-2022 RHO(D) immune globulin- IV or IM [place] Work Phone: [facility] Payers Date Payer Category Payer Self-pay [id number] 2022 Medicaid [id number] 2022 Medicaid [id number] 2022 Private Health Insurance HUMANA HUMANA MEDICAID [facility] [id number] 2022-Present [address] [address] [place] [address] Medicaid [id number] 2020 Blue Cross Blue Shield [id number] 2020 Unknown [employer] PPO [id number] 2020-Present [phone] [address] [place] [address] PPO [id number] 2020 Unknown [id number] 2018 Unknown MMO MMO [employer] [id number] 2018-Present [phone] [address] [place] [address] PPO [id number] 2016 Unknown [id number] Unknown [employer] [place] [id number] Unknown 63 Unknown [id number] Social History Date Type Detail Facility Start: 09-11-2012 End: 12-16-2021 Tobacco smoking status NHIS Never smoked tobacco [facility] Start: 06-20-2021 End: 06-28-2022 Alcohol intake Current drinker of alcohol (finding) [facility] Start: 05-11-2021 History SDOH Alcohol Frequency 2 [facility] Start: 05-11-2021 History SDOH Alcohol Std Drinks 1 [facility] Start: 08-01-2020 History SDOH Alcohol Comment occasional [facility] Start: 2001 Sex Assigned At Not on file [facility] Start: 05-11-2021 End: 01-02-2022 Exposure to SARS-CoV-2 (event) Not sure [facility] Start: 09-11-2012 End: 12-16-2021 Tobacco use and exposure Smokeless tobacco non-user [facility] Start: 12-16-2021 End: 03-18-2023 Tobacco smoking status NHIS Unknown if ever smoked [facility] Start: 2000 Sex Assigned At Female W [facility] Start: 08-06-2022 End: 10-06-2024 Alcohol intake Ex-drinker (finding) [facility] Start: 08-01-2022 Education 13 [facility] Start: [facility] Start: 09-04-2022 End: 09-24-2024 History of Social function [facility] Work Phone: Start: 09-04-2022 End: 09-24-2024 Tobacco use panel [facility] Work Phone: Adult Depression Screening Assessment 5 [facility] Work Phone: How often to you hav e a drink containing alcohol? Monthly or less [facility] Work Phone: How many standard drinks containing alcohol do you have on a typical day? 1 or 2 [facility] Work Phone: How often do you hav e 6 or more drinks on 1 occasion? Never [facility] Work Phone: Start: 06-08-2024 Sex Female (finding) [facility] Medical Equipment Procedure Code Equipment Code Equipment Origin al Text Equipment Identifier Dates Use to inject B1 2 1 time a week for 4 weeks then once monthly Start: 04-20-2024 End: 06-22-2024 Goals Date Patient Goal Desired Activity /State Personal health goal Functional Status Date Assessment Result Facility 10-01-2013 Are you deaf, or do you have serious difficulty hearing No 10/01/2013 3:41 PM Virginia Toledo RN No [facility] 10-01-2013 Are you blind, or do you have serious difficulty seeing, even when wearing glasses No 10/01/2013 3:41 PM Virginia Toledo RN No [facility] 10-01-2013 Do you have serious difficulty walking or climbing stairs No 10/01/2013 3:41 PM Virginia Toledo RN No [facility] 10-01-2013 Do you have difficul ty dressing or bathing No 10/01/2013 3:41 PM Virginia Toledo RN No [facility] Mental Status Date Assessment Result Facility 10-11-2024 Cognitive function Level Of Cons ciousness Awake;Alert;Appropriate;Fol lows Commands [facility] Work Phone: 10-14-2022 Cognitive function Level Of Cons ciousness Awake;Alert;Appropriate;Fol lows Commands [facility] Work Phone: 10-01-2013 Because of a physica l, mental, or emotional condition, do you have serious difficulty concentrating, remembering, or making decisions No 10/01/2013 3:41 PM EDT Virginia Umana RN No [facility] Clinical Notes 08-24-2015 to 10-11-2024 Note Date & Type Note Facility 10-11-2024 History and physi addison note [facility] 10-11-2024 Discharge summary [facility] 10-11-2024 Discharge summary Note Date/Time October 11, 2024 4:28pm [facility] Medical Records Department [address] [facility] [place] [address] Emergency Department Summary 10/11/24 MR#: [id number] Acct: [id number] Name: RADHA BARNES Rep #:[id number] : 2000 24 From: Dustin Burkett MD PCP: FELIPA WHITTINGTON Status:REG ER Location: ED HPI HPI - GI History of Present Illness Chief Complaint: Palpitations Informant: patient and parent Narrative Narrative: 24-year-old female with history of ulcerative colitis, she is been having a flareup since April, for the past 6 months. She sees a senior sql developer with [facility] in [place], [place], and she currently is 2-3 weeks in on a prednisone taper none of which is helping and this is about the fifth course of prednisone she has been on in the past 6 months. She is having lots of daily tenesmus, watery diarrhea, occasional small amount of blood, some mucus, no melena. No fevers or chills. She feels generally weak but she is able to walk. She had a CT scan 1 week ago, about a week or so after some blood work that showed a white blood count in the 12 range, albumin and proteins that are low, slightly elevated alkaline phosphatase and other liver enzymes unremarkable, theCT showed pancolitis with pericolonic stranding but no sign of megacolon, perforation, or pneumatosis. Her doctor had planned on starting Entyvio, but she is waiting to be preauthorized for it and has not yet received a dose of anyof that. In the meantime, she has been having more pain and diarrhea over the past 2 days, and now vomiting, and so she was referred to the ER. [facility] Medical History Laceration, obstetrical, first degree Care and examination of lactating mother (spontaneous vaginal delivery) 40 weeks gestation of Shortness of breath Palpitations Tachycardia Iron deficiency anemia Anxiety and depression Ulcerative colitis Home Medications ?Medication ?Instructions ?Recorded ?Last Taken ?Type sertraline 100 mg tablet 100 mg PO DAILY 01/18/24 Unk nown History potassium chloride 20 mEq 20 meq PO BID #30 tabs 06/08 Unknown Rx tablet,extended release Allergy/AdvReac Type Severity Reaction Status Date / Time No Known Allergies Allergy Verified 06/08/24 08:40 Family History Mother Hypertension Gluten intolerance Father Hypertension Sister Heart murmur Grandmother Heart disease Diabetes Grandfather Hypertension Heart disease Cancer Grandmother Heart disease Hypertension Grandfather Myocardial infarction, Onset Age: 52 Surgical History History of esophagogastroduodenoscopy (EGD) History of colonoscopy Social History housing: house Smoking Status: Never smoker alcohol intake: never substance use type: does not use ROS ROS ED Constitutional Constitutional ED: Reports malaise and weakness; Denies chills or fever(s) Eyes Eyes: Denies change in vision or diplopia ENT ENT ED: Denies rhinorrhea or sore throat Cardiovascular Cardiovascular: Denies chest pain or palpitations Respiratory/Chest Respiratory/Chest: Denies cough or dyspnea Gastrointestinal Gastrointestinal: Reports abdominal pain, diarrhea, hematochezia, nausea, tenesmus and vomiting; Denies hematemesis or melena Genitourinary Genitourinary ED: Denies dysuria or hematuria Musculoskeletal Musculoskeletal: Denies back pain or neck pain Integumentary Denies abscess or rash Neurologic Neurologic: Denies headache(s), paresthesias or weakness Psychiatric Psychiatric: Denies anxiety or suicidal thoughts EXAM Physical Exam Const Vital Signs: 10/11/24 13:46 10/11/24 13:48 10/11/24 13:51 Temperature 99 F 99 F Temperature Source Oral Oral Pulse Rate 194 H 158 H Respiratory Rate 18 12 Respiratory Effort Blood Pressure 105/79 130/77 H Blood Pressure Mean 87 94 Pulse Ox 100 99 Oxygen Delivery Method Room Air 10/11/24 13:51 10/11/24 14:16 10/11/24 14:30 Temperature Temperature Source Pulse Rate 120 H 120 H Respiratory Rate 18 18 Respiratory Effort Normal Non-Labored Blood Pressure 116/78 Blood Pressure Mean 90 Pulse Ox 98 98 Oxygen Delivery Method 10/11/24 15:00 10/11/24 15:30 10/11/24 16:00 Temperature Temperature Source Pulse Rate 116 H 113 H 102 H Respiratory Rate 16 24 H 20 H Respiratory Effort Blood Pressure 120/76 119/79 116/80 Blood Pressure Mean 90 92 92 Pulse Ox 99 96 98 Oxygen Delivery Method Room Air Room Air Positive well nourished and well developed General Appearance ED: well developed and NAD HEENT Reports moist mucous membranes normocephalic and atraumatic Eyes PERRL and EOMs intact bilaterally Neck full ROM and supple Resp normal respiratory effort and clear to auscultation bilaterally Cardio regular rate, regular rhythm and no murmurs Rate: tachycardic GI non-distended GI Narrative: Mild diffuse nonfocal abdominal tenderness without guarding or rebound. No distention. Auscultation: normoactive bowel sounds Palpation: soft Back/Spine no CVA tenderness General Back: other FROM Extremity normal to inspection General Extremety ED: Negative for edema, pulses abnormal or tenderness General Extremity: Negative for edema or pulses abnormal Neuro oriented x3, CN's II-XII intact bilaterally and no sensory deficits noted Sensorium / Orientation: awake and alert Motor Exam: strength 5/5 throughout Psych mental status grossly normal and thought process normal Skin no rashes or lesions noted and no wounds MDM MDM MDM Narrative Medical decision making narrative: Patient very tachycardic I expect from being dehydrated, she already has evidence of malnourishment. She obviously is failing outpatient treatment, however this has been going on for 6 months. She is slated to see the senior sql developer Dr. Mary Woo at [facility] in [place] tomorrow. I spoke withher, she reviewed some records, seems the patient had C. difficile in March and was treated for that as well as some steroids and or April and then was lost to follow-up physically until she eventually came to the office within the last month or 2, appeared emaciated and complained of a 42 pound weight lossand at that point they set her up with an appointment with Dr. Woo, trying to get an EGD and colonoscopy, obtain blood work and a CT scan which is noted below, and try to get the patient to get a scope which is not able to be obtained until November according to her, so she would recommend admission for IV hydration and IV steroids, inpatient EGD and at least flexible sigmoidoscopy,if not complete colonoscopy, and possibly starting her on Remicade. After giving her IV fluids here her heart rate is down to 113, consistent with tachycardia due to dehydration. She is a 17.5 white blood count, about 5 days ago was around 12, this could be due to inflammation, infection, or prednisone. We are sending diarrhea for enteric bacterial panel as well as C. difficile to rule that out, in the meantime I discussed with Dr. Love with GI and hospitalist for admission; for now before a consult since he is a patient who recommends Solu-Medrol 125 mg every 6 hours. History & Record Review Additional record(s) reviewed:: Prior labs (Labs from 09/23/[address] abdomen/pelvis from [facility] reviewed, provided by patient) Lab Data Attestation: I reviewed the patient's lab results. Labs: Laboratory Results - last 24 hr 10/11/24 13:58 WBC 17.5 H RBC 4.13 L Hgb 11.7 L Hct 36.3 L MCV 87.9 MCH 28.3 MCHC 32.2 RDW Std Deviation 45.4 H RDW Coeff of Neville 14.2 Plt Count 963 H* MPV 8.4 Immature Gran % (Auto) 0.700 Neut % (Auto) 77.1 H Lymph % (Auto) 15.2 L Nelson % (Auto) 6.2 Eos % (Auto) 0.1 Baso % (Auto) 0.7 Absolute Neuts (auto) 13.5 H Absolute Lymphs (auto) 2.66 Nucleated RBC % 0 Sodium 136 Potassium 3.0 L Chloride 96 L Carbon Dioxide 28.1 Anion Gap 12 BUN 5 Creatinine 0.45 L Estim Creat Clear Calc 137.84 Est GFR (MDRD) Non-Af 139 BUN/Creatinine Ratio 10.5 Glucose 92 Calcium 8.2 Total Bilirubin 0.34 AST 16 ALT 7 Alkaline Phosphatase 211 H Total Protein 5.9 Albumin 2.4 L Globulin 3.4 Albumin/Globulin Ratio 0.7 L Lipase 5 L Management Discussion w/another healthcare provider: Hospitalist and Rug Inspector Helper (See above) Discharge Plan Dx/Rx/DC Orders Clinical Impression: Adult failure to thrive, Exacerbation of ulcerative colitis, Pancolitis Disposition Disposition: Acute Care Hospital [facility] What to do if you have Problems For any increased pain, shortness of breath, bleeding, nausea or vomiting, chestpain, or any unexpected problems, contact your Primary Care Provider. Call [facility] ([phone]) or report to the closest Emergency Room. Call 911 if necessary. 10/11/24 [id number] <Electronically signed by Dustin Burkett MD> Cosigner Signature (if applicable): CC: FELIPA WHITTINGTON ~ Signed [facility] Work Phone: 1(552) 606-689108-04-2025 Telephone encounter Note* Telephone Encounter - Pamela Barrett LPN - 10/11/2024 1:[address] Whittington had sent patient a My Chart message. Patient has reviewed message. [facility]08-04-2025 Miscellaneous Notes* Telephone Encounter - Pamela Barrett LPN - 10/11/2024 1:[address] Whittington had sent patient a My Chart message. Patient has reviewed message. * Telephone Encounter - Pamela Barrett LPN - 10/11/2024 12:58 PM EDT See telephone encounter 10/11/24. Dr. Whittington has reviewed symptoms with GI and they are suggesting that patient be evaluated at [facility]. LEFT MESSAGE FOR PATIENT TO CALL OFFICE. * Telephone Encounter - Pamela Barrett LPN - 10/07/2024 3:[address] Whittington had requested that we contact the [facility] to request a sooner appointment. Patient notified of same and agreed to travel to [facility] if able to be seen sooner. Called [facility] and they were able to get patient scheduled 11/10/[address] Tristen Aldridge at 1:30. Called patient back and made her aware of appointment. During conversation patient mentioned that Rashaad COLLIER is trying to get approval for Entyvio infusions and questioned does she really need to travel to [facility]. Explained to patient that Dr. Whittington believes that due to her abnormal labs that she should be seen sooner and not wait. Patient still questioning if it was really necessary. Convinced her to keep appointment until reviewed with PCP. documented [facility] Telephone encounter Note * Telephone Encounter - Pamela Barrett LPN - 10/11/2024 12:58 PM EDT See telephone encounter 10/11/24. Dr. Whittington has reviewed symptoms with GI and they are suggesting that patient be evaluated at [facility]. LEFT MESSAGE FOR PATIENT TO CALL OFFICE. [facility]08-04-2025 Telephone encounter Note* Telephone Encounter - Mary Pozo MA - 10/11/2024 11:54 AM EDT Spoke with patient, she has an appt with Dr. Woo tomorrow for MD consult, if she cannot wait until tomorrow, by all means, please go to the [facility] Care/urgent care for the interim, she is currently on a prednisone taper. Mary Pozo INCIDENT HANDLER [facility]08-04-2025 Miscellaneous Notes* Telephone Encounter - Mary Pozo MA - 10/11/2024 11:54 AM EDT Spoke with patient, she has an appt with Dr. Woo tomorrow for MD consult, if she cannot wait until tomorrow, by all means, please go to the [facility]/urgent care for the interim, she is currently on a prednisone taper. Mary Pozo [facility] * Telephone Encounter - Torrie German - 10/11/2024 11:40 AM EDT Patient called to request to speak to Dr. Woo's nurse regarding symptoms she is having, like vomiting, abdominal pain and no appetite. Please call patient back to speak to her regarding her symptoms. documented in this encounterGlen[facility]08-[facility]-2025 Telephone encounter Note * Telephone Encounter - Torrie German - 10/11/2024 11:40 AM EDT Patient called to request to speak to Dr. Woo's nurse regarding symptoms she is having, like vomiting, abdominal pain and no appetite. Please call patient back to speak to her regarding her symptoms. [facility]08-03-2025 History of Present illness Narrative* Felipa Whittington MD - 10/10/2024 9:44 PM EDT GI consult documented in this encounterGlen[facility]07-31-2025 Telephone encounter Note * Telephone Encounter - Pamela Barrett LPN - 10/07/2024 3:[address] Whittington had requested that we contact the [facility] to request a sooner appointment. Patient notified of same and agreed to travel to [facility] if able to be seen sooner. Called [facility] and they were able to get patient scheduled 11/10/[address] Tristen Aldridge at 1:30. Called patient back and made her aware of appointment. During conversation patient mentioned that Rashaad COLLIER is trying to get approval for Entyvio infusions and questioned does she really need to travel to [facility]. Explained to patient that Dr. Whittington believes that due to her abnormal labs that she should be seen sooner and not wait. Patient still questioning if it was really necessary. Convinced her to keep appointment until reviewed with PCP. [facility]07-31-2025 Telephone encounter Note* Telephone Encounter - Felipa Whittington MD - 10/07/2024 12:15 PM EDT Starting on calcium and vit D given chronic steroid exposure. [facility]07-31-2025 Miscellaneous Notes* Telephone Encounter - Felipa Whittington MD - 10/07/2024 12:15 PM EDT Starting on calcium and vit D given chronic steroid exposure. documented in this encounterGlenbeigh Hospital07-31-2025 NoteHNO ID: [id number] Author: FELIPA WHITTINGTON MD Service: ? Author Type: Physician Type: Progress Notes Filed: 10/07/2024 12:15 Note Text: Elevated alk phos worsening, [facility] History of Present illness Narrative* Felipa Whittington MD - 10/07/2024 12:14 PM EDT Elevated alk phos worsening, sending GGT and refractionating documented in this encounterGlenbeigh Hospital07-30-2025 Note* Addendum Note - Felipa Whittington MD - 10/06/2024 5:25 PM EDTAddended by: FELIPA WHITTINGTON on: 10/06/2024 05:25 PM Modules accepted: Orders [facility]07-30-2025 Miscellaneous Notes* Addendum Note - Felipa Whittington MD - 10/06/2024 5:25 PM EDTAddended by: FELIPA WHITTINGTON on: 10/06/2024 05:25 PM Modules accepted: Orders documented in this encounterGlenbeigh Hospital07-30-2025 Telephone encounter Note * Telephone Encounter - Haydee Pleitez - 10/06/2024 3:18 PM EDT Scheduled patient for office appointment with Dr. Woo on 12/21/24. Called and spoke with patient. [facility]07-30-2025 Miscellaneous Notes* Telephone Encounter - Haydee Pleitez - 10/06/2024 3:18 PM EDT Scheduled patient for office appointment with Dr. Woo on 12/21/24. Called and spoke with patient. documented in this encounterGlenbeigh Hospital07-30-2025 Instructions* Patient Instructions* Felipa Whittington MD - 10/06/2024 1:31 PM EDT Please get labs and abdominal imaging Please follow up with psychology. Follow up with gynecology for your pap screening [place] [facility] [address] [place] [address] [address] [place] [place], [place] [address] [employer] [id number] [address] [facility] [address] [place] [address] [facility] [address] [place] [id number] Jessica [employer] [address] [address] [place] [place] [address] [id number] [place] [address] documented in this encounterGlenbeigh Hospital07-30-2025 History of Present illness Narrative* Felipa Whittington MD - 10/06/2024 1:00 PM EDT Images from the original note were not included. Family Medicine OUTPATIENT VISIT October 06, 2024 CC: Establish care HPI: 24 year old female patient with a history of UC on prednisone (15mg) on prilosec ulcer ppx Iron deficiency anemia Hypokalemia on supplements Mirena IUD 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 Last 40 pounds with that flare. Getting a colonoscopy in November. Still having some loose blood stools since April of this year. Still having some abdominal pain, around 3/10. Still having some blood in the stool as well, which is when she wipes but also in the toilet bowl. No nausea or vomiting. Abdominal is upper abdomen, which is less typical for her usual UC pain. Not using anything else other than prednisone for her pain. Now taking 15mg daily. States longest course has been 2 months at a single time. No recent vitamin D. Having palpitations at times which improves with drinking gatorade. Had C diff as well in Apr. States her symptoms are slightly better than when she had labs done on 09/23. Feels a lot of anxiety regarding her UC and rage No TSH or thoughts of hurting others. Endorsing anhedonia, fatigue, anhedonia. She has had persistently elevated alk phos that is trending up in the last year. With rest of liverlabs WNL. No hx MRCP/ERCP. Review of Systems PAIN ASSESSMENT: Negative for pain, history of chronic pain, or current treatment for a chronic pain condition. GENERAL: No weight loss, or fevers HEENT: Negative for frequent or significant headaches RESPIRATORY: Negative for cough, wheezing, shortness of breath CARDIOVASCULAR: Negative for chest pain, palpitations, PND or orthopnea GI: as above : No history of dysuria, frequency, urgency, or change in urine appearance NEURO: No history of headaches, numbness, weakness, or changes to vision or hearing Health maintenance: Cervical Cancer Screening due on 06/22/2023 Allergies: ALLERGIES No Known Allergies Medications: predniSONE (DELTASONE) 5 mg tablet Take 4 tablets by mouth once daily for 14 days, THEN 3 tablets once daily for 14 days, THEN 2 tablets once daily for 7 days, THEN 1 tablet once daily for 7 days. omeprazole (PRILOSEC) 20 mg capsule Take 1 capsule by mouth once daily. ferrous sulfate (FEOSOL) 325 mg (65 mg iron) tablet Take 1 tablet by mouth once daily. levonorgestrel (MIRENA) 21 mcg/24 hours (8 yrs) 52 mg IUD 1 Each by INTRAUTERINE route as directed. citalopram hydrobromide (CELEXA) 10 mg tablet Take 1 tablet by mouth once daily. folic acid 1 mg tablet Take 1 tablet by mouth once daily. Past Medical History: PAST MEDICAL HISTORY Diagnosis Date Anxiety and depression Childhood overweight, BMI 85-94.9 percentile 08/2015 Iron deficiency anemia Iron deficiency anemia due to chronic blood loss 02/09/2021 Menarche 01/2013 PMH - PAST MEDICAL HISTORY OF 10/15/2006 normal color vision depression Ulcerative colitis (HCC) elevated liver enzymes Social History: Social History Tobacco Use Smoking status: Never Smokeless tobacco: Never Vaping Use Vaping status: Never Used Substance Use Topics Alcohol use: Not Currently Comment: occasional Drug use: No Family History: Family History Problem Relation Age of Onset Hypertension Mother other (gluten intolerance) Mother Skin Cancer Mother Fibromyalgia Mother Hypertension Father Heart Sister murmur as an Heart Maternal Grandmother Diabetes Maternal Grandmother Hypertension Maternal Grandfather Heart Maternal Grandfather 60s other (Bladder cancer) Maternal Grandfather smoker Heart Paternal Grandmother Hypertension Paternal Grandmother Hypertension Paternal Grandfather Heart Paternal Grandfather age 52 [place]; adn MGGF BP 118/84 Pulse 104 Temp 37 C (98.6 F) (Tympanic) Resp 20 Ht 153 cm (5' 0.25) Wt 47.2 kg(104 lb) LMP 03/21/2024 (Exact Date) No BMI 20.14 kg/m General: Awake, alert, not in acute distress GRANITE POLISHER MACHINE: Answering questions appropriately. No abnormal posturing or positioning. Speech is normal. Strength grossly intact. RESP: Clear lungs bilateral with good air entry, No increased work of breathing CVS: RRR, No murmur. Pulses 2+. GI: Abdomen is soft, non distended, tender in lower abdomen without rigidity or guarding. Does seemto have hepatomegaly 1-2cm below costal margin. No other masses or organomegaly. Skin/Other: No rashes or lesions. HEENT: pupils equal Extremities: No peripheral edema, swelling or erythema of lower extremities. Labs: Reviewed the following: Pertinent labs as outlined above Latest Ref Rng 09/23/2024 WBC 3.70 - 11.00 k/uL 12.44 (H) RBC 3.90 - 5.20 m/uL 3.55 (L) Hemoglobin 11.5 - 15.5 g/dL 10.5 (L) Hematocrit 36.0 - 46.0 % 33.3 (L) MCV 80.0 - 100.0 fL 93.8 MCH 26.0 - 34.0 pg 29.6 MCHC 30.5 - 36.0 g/dL 31.5 RDW-CV 11.5 - 15.0 % 13.6 Platelet Count 150 - 400 k/uL 624 (H) MPV 9.0 - 12.7 fL 9.2 Neut% % 65.5 Abs Neut (ANC) 1.45 - 7.50 k/uL 8.15 (H) Lymph% % 25.5 Abs Lymph 1.00 - 4.00 k/uL 3.17 Nelson% % 7.7 Abs Nelson <0.87 k/uL 0.96 (H) Eosin% % 0.4 Abs Eosin <0.46 k/uL 0.05 Baso% % 0.4 Abs Baso <0.11 k/uL 0.05 Immature Gran % % 0.5 IMMATURE GRANS (ABS) <0.10 k/uL 0.06 NRBC /100 WBC 0.0 Absolute nRBC <0.01 k/uL <0.01 DTYPE Auto Protein, Total 6.3 - 8.0 g/dL 5.1 (L) Albumin 3.9 - 4.9 g/dL 2.2 (L) Calcium 8.5 - 10.2 mg/dL 8.2 (L) Bilirubin, Total 0.2 - 1.3 mg/dL <0.2 (L) Alkaline Phosphatase 34 - 123 U/L 168 (H) AST 13 - 35 U/L 22 ALT 7 - 38 U/L 11 Glucose 74 - 99 mg/dL 58 (L) BUN 7 - 21 mg/dL 4 (L) Creatinine 0.58 - 0.96 mg/dL 0.44 (L) Sodium 136 - 144 mmol/L 139 Potassium 3.7 - 5.1 mmol/L 3.3 (L) Chloride 98 - 107 mmol/L 101 CO2 22 - 30 mmol/L 27 Anion Gap 8 - 15 mmol/L 11 eGFR >=60 mL/min/1.73m 140 Iron 41 - 186 ug/dL 68 TIBC 232 - 386 ug/dL 172 (L) Transferrin Saturation 15.0 - 57.0 % 39.5 CRP <0.9 mg/dL 0.6 Ferritin 14.7 - 205.1 ng/mL 67.5 Legend: (H) High (L) Low Imaging: Reviewed the following: Reviewed recent pertinent imaging FUQ spleen 09/30 pression IMPRESSION: Normal sonographic appearance of the right upper quadrant and spleen. Assessment/Plan: ASSESSMENT/PLAN: 1. Encounter to establish care - ICD9: V65.8, ICD10: Z76.89 (primary diagnosis) Establishing care 2. Encounter for immunization - ICD9: V03.89, ICD10: Z23 - PNEUMOCOCCAL VACCINE, 20 VALENT (PREVNAR 20) - MENINGOCOCCAL B VACCINE (BEXSERO) 3. Ulcerative colitis with complication, unspecified location (HCC) - ICD9: 556.9, ICD10: K51.919 Uncontrolled Appears to still have ongoing symptoms per pt report since Feb of this year. Per last GI note plansto possibly start biologic. Currently on pred 15mg. Not on other agents. Will ask for GI review of case and repeat labs and fecal addison pro today. Perhaps may also benefit from additional agents at present, repeat imaging. Plans were to obtain imaging in November, but may benefit from earlier review since having ongoing GI bleeding since April. I reached out to GI team to see if staff can review case. - COMPLETE BLOOD COUNT AND DIFFERENTIAL - COMPREHENSIVE METABOLIC PANEL - CALPROTECTIN,FECAL - C-REACTIVE PROTEIN - SEDIMENTATION RATE, WESTERGREN - VITAMIN D 25 HYDROXY - US ABD RIGHT UPPER QUADRANT -Elevated alk phos and concern on exam for hepatomegaly. Concern for issues such as PSC given UC. Will repeat RUQ US and have reached out to GI regarding whether would benefit from MRCP given alk phos elevation worsening in past year. 4. Depression, unspecified depression type - ICD9: 311, ICD10: F32.A Uncontrolled, no TSH - CONSULT TO PSYCHOLOGY - CITALOPRAM 10 MG TABLET, discussed if TSH/SI needs to reach out immediately and if any planning attend ED. Advised onset is 6-8 weeks. Felipa Whittington Remainder of plan including medications to be continued as prior to this visit unless noted above. I will reach out if lab testing or imaging is abnormal and requires a change in the plan discussed above. Otherwise, we can review results at follow up. I discussed this with the patient and they arein agreement. Discussed with patient the importance of continuity of care. Follow up appointments as scheduled below. We discussed returning sooner if symptoms should worsen or not improve as expected as discussed during our appointment. Symptoms that should prompt escalation of care that we discussed include severeabdominal pain, NH bleeding, fever, lightheadness, syncope. Felipa Whittington MD Internal Medicine and Pediatrics [facility] 10/06/2024 3:43 PM Portions of note generated prior to visit. History of illness, past medical and surgical history, family and social history, medications, allergies, labs and imaging reviewed during visit and are updated as appropriate following visit. I spent 30 minutes in the visit, with more than 50% of the total [id number] time of the visit in counseling / coordination of care. Future Appointments Date Time Provider Department Center 10/14/2024 8:30 AM [facility] [address] [facility] 11/10/2024 10:00 AM Felipa Whittington MD [facility] [place] [facility] 11/16/2024 10:30 AM Jaren Szymanski MD [facility] [place] 12/21/2024 9:45 AM Carlos Woo MD [facility] [place] documented in this encounterGlenbeigh Hospital07-30-2025 NoteHNO ID: [id number] Author: FELIPA WHITTINGTON MD Service: ? Author Type: Physician Type: Progress Notes Filed: 10/06/2024 15:49 Note Text: Family Medicine OUTPATIENT VISIT October 06, 2024 CC: Establish care HPI: 24 year old female patient with a history of UC on prednisone (15mg) on prilosec ulcer ppx Iron deficiency anemia Hypokalemia on supplements Mirena IUD 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 Last 40 pounds with that flare. Getting a colonoscopy in November. Still having some loose blood stools since April of this year. Still having some abdominal pain, around 3/10. Still having some blood in the stool as well, which is when she wipes but also in the toilet bowl. No nausea or vomiting. Abdominal is upper abdomen, which is less typical for her usual UC pain. Not using anything else other than prednisone for her pain. Now taking 15mg daily. States longest course has been 2 months at a single time. No recent vitamin D. Having palpitations at times which improves with drinking gatorade. Had C diff as well in Apr. States her symptoms are slightly better than when she had labs done on 09/23. Feels a lot of anxiety regarding her UC and rage No TSH or thoughts of hurting others. Endorsing anhedonia, fatigue, anhedonia. She has had persistently elevated alk phos that is trending up in the last year. With rest of liver labs WNL. No hx MRCP/ERCP. Review of Systems PAIN ASSESSMENT: Negative for pain, history of chronic pain, or current treatment for a chronic pain condition. GENERAL: No weight loss, or fevers HEENT: Negative for frequent or significant headaches RESPIRATORY: Negative for cough, wheezing, shortness of breath CARDIOVASCULAR: Negative for chest pain, palpitations, PND or orthopnea GI: as above : No history of dysuria, frequency, urgency, or change in urine appearance NEURO: No history of headaches, numbness, weakness, or changes to vision or hearing Health maintenance: Cervical Cancer Screening due on 06/22/2023 Allergies: ALLERGIES No Known Allergies Medications: predniSONE (DELTASONE) 5 mg tablet Take 4 tablets by mouth once daily for 14 days, THEN 3 tablets once daily for 14 days, THEN 2 tablets once daily for 7 days, THEN 1 tablet once daily for 7 days. omeprazole (PRILOSEC) 20 mg capsule Take 1 capsule by mouth once daily. ferrous sulfate (FEOSOL) 325 mg (65 mg iron) tablet Take 1 tablet by mouth once daily. levonorgestrel (MIRENA) 21 mcg/24 hours (8 yrs) 52 mg IUD 1 Each by INTRAUTERINE route as directed. citalopram hydrobromide (CELEXA) 10 mg tablet Take 1 tablet by mouth once daily. folic acid 1 mg tablet Take 1 tablet by mouth once daily. Past Medical History: PAST MEDICAL HISTORY Diagnosis Date Anxiety and depression Childhood overweight, BMI 85-94.9 percentile 08/2015 Iron deficiency anemia Iron deficiency anemia due to chronic blood loss 02/09/2021 Menarche 01/2013 PMH - PAST MEDICAL HISTORY OF 10/15/2006 normal color vision depression Ulcerative colitis (HCC) elevated liver enzymes Social History: Social History Tobacco Use Smoking status: Never Smokeless tobacco: Never Vaping Use Vaping status: Never Used Substance Use Topics Alcohol use: Not Currently Comment: occasional Drug use: No Family History: Family History Problem Relation Age of Onset Hypertension Mother other (gluten intolerance) Mother Skin Cancer Mother Fibromyalgia Mother Hypertension Father Heart Sister murmur as an infant Heart Maternal Grandmother Diabetes Maternal Grandmother Hypertension Maternal Grandfather Heart Maternal Grandfather 60s other (Bladder cancer) Maternal Grandfather smoker Heart Paternal Grandmother Hypertension Paternal Grandmother Hypertension Paternal Grandfather Heart Paternal Grandfather age 52 [place]; adn MGGF BP 118/84 Pulse 104 Temp 37 ?C (98.6 ?F) (Tympanic) Resp 20 Ht 153 cm (5' 0.25) Wt 47.2 kg (104 lb) LMP 03/21/2024 (Exact Date) No BMI 20.14 kg/m? 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 No abnormal posturing or positioning. Speech is normal. Strength grossly intact. RESP: Clear lungs bilateral with good air entry, No increased work of breathing CVS: RRR, No murmur. Pulses 2+. GI: Abdomen is soft, non distended, tender in lower abdomen without rigidity or guarding. Does seem to have hepatomegaly 1-2cm below costal margin. No other masses or organomegaly. Skin/Other: No rashes or lesions. HEENT: pupils equal Extremities: No peripheral edema, swelling or erythema of lower extremities. Labs: Reviewed the following: Pertinent labs as outlined above Latest Ref Rng 09/23/2024 WBC 3.70 - 11.00 k/uL 12.44 (H) RBC 3.90 - 5.20 m/uL 3.55 (L) Hemoglobin 11.5 - 15.5 g/dL 10.5 (L) Hematocrit 36 (more content not included)...[facility]07-29-2025 Telephone encounter Note* Telephone Encounter - Ventura Gutierrez - 10/05/2024 12:17 PM EDT Patient is asking the status on the Entyv[employer] authorization. Please contact and advise patient, follow up was made for 01/27/25 with Giana. [facility]07-29-2025 Miscellaneous Notes* Telephone Encounter - Ventura Gutierrez - 10/05/2024 12:17 PM EDT Patient is asking the status on the Entyv[employer] authorization. Please contact and advise patient, follow up was made for 01/27/25 with Giana. [facility] Tele[facility] encounter Note * Telephone Encounter - Karolina Yu APRN.CNP - 09/30/2024 8:53 AM EDT Result message sent [facility]07-24-2025 Miscellaneous Notes* Telephone Encounter - Karolina Yu APRN.CNP - 09/30/2024 8:53 AM EDT Result message sent * Telephone Encounter - Dinora Lopez - 09/29/2024 10:32 AM EDT Pt would like someone to give her a call about her blood tests a,d CT results, she said she got them already on my chart. Thank you. [facility] Telephone encounter Note * Telephone Encounter - Dinora Lopez - 09/29/2024 10:32 AM EDT Pt would like someone to give her a call about her blood tests a,d CT results, she said she got them already on my chart. Thank you. [facility]07-18-2025 History of Present illness Narrative* Eulalia Frederick, RT(R) - 09/24/2024 3:00 PM EDT Radiology Service Progress Note DATE OF SERVICE: September 24, 2024 TIME: 4:01 PM PATIENT IDENTITY VERIFICATION COMPLETED USING TWO (2) STANDARD IDENTIFIERS: Name and Date of confirmed by patient verbally. FALL SCREENING: Has the patient had 2 falls in the last year or 1 fall with injury or currently using an Ambulatory Assistive Device (Walker, Cane, Wheelchair, Crutches, etc.)? No PATIENT GENDER DATA: Assigned female at . status: : No status:NO. PATIENT RELEVANT IMPLANT DATA REVIEWED: Yes PATIENT PRESENTS WITH AN IMPLANTABLE OR ATTACHED MANAGER LICENSING: No ALLERGIES: Reviewed and unchanged CONTRAST ALLERGY: NO. EXAM: CT -CONTRAST INDUCED NEPHROPATHY RISK FACTORS: Not applicable CREATININE: Creatinine Date Value Ref Range Status 09/23/2024 0.44 (L) 0.58 - 0.96 mg/dL Final 06/22/2024 0.50 (L) 0.58 - 0.96 mg/dL Final 03/31/2024 0.56 (L) 0.58 - 0.96 mg/dL Final Estimated Glomerular Filtration Rate Date Value Ref Range Status 09/23/2024 140 >=60 mL/min/1.73m Final Comment: Estimated Glomerular Filtration Rate (eGFR) is calculated using the 2020 CKD-EPI creatinine equation. This equation utilizes serum creatinine, sex, and age as parameters. The creatinine assay has traceable calibration to isotope dilution- mass spectrometry. Refer to KDIGO guidelines for clinical interpretation. In patients with unstable renal function, e.g. those with acute kidney injury, the eGFRmay not accurately reflect actual GFR. eGFR- Date Value Ref Range Status 01/04/2021 >60 Final P.O.C.T. RESULTS: POC done: Yes, See Lab Tab September 24, 2024 TREATMENT: N/A PERIPHERAL IV DATA: Ambulatory: A peripheral IV was started in the Left antecubital site with a Angio cath: 22 gauge. RADIOLOGY DEPARTMENT: CT; Exam(s) Completed: Abdomen/Pelvis SIGNATURE: RT Luis(Crissy) PATIENT NAME: Radha Barnes DATE: September 24, 2024 TIME: 4:01 PM documented in this encounterG[facility]25 NoteHNO ID: [id number] Author: EULALIA FREDERICK RT(R) Service: ? Author Type: Precision Inspector Type: Progress Notes Filed: 09/24/2024 16:01 Note Text: Radiology Service Progress Note DATE OF SERVICE: September 24, 2024 TIME: 4:01 PM PATIENT IDENTITY VERIFICATION COMPLETED USING TWO (2) STANDARD IDENTIFIERS: Name and Date of confirmed by patient verbally. FALL SCREENING: Has the patient had 2 falls in the last year or 1 fall with injury or currently using an Ambulatory Assistive Device (Walker, Cane, Wheelchair, Crutches, etc.)? No PATIENT GENDER DATA: Assigned female at . status: : No status: NO. PATIENT RELEVANT IMPLANT DATA REVIEWED: Yes PATIENT PRESENTS WITH AN IMPLANTABLE OR ATTACHED MANAGER LICENSING: No ALLERGIES: Reviewed and unchanged CONTRAST ALLERGY: NO. EXAM: CT -CONTRAST INDUCED NEPHROPATHY RISK FACTORS: Not applicable CREATININE: Creatinine Date Value Ref Range Status 09/23/2024 0.44 (L) 0.58 - 0.96 mg/dL Final 06/22/2024 0.50 (L) 0.58 - 0.96 mg/dL Final 03/31/2024 0.56 (L) 0.58 - 0.96 mg/dL Final Estimated Glomerular Filtration Rate Date Value Ref Range Status 09/23/2024 140 >=60 mL/min/1.73m? Final Comment: Estimated Glomerular Filtration Rate (eGFR) is calculated using the 2020 CKD-EPI creatinine equation. This equation utilizes serum creatinine, sex, and age as parameters. The creatinine assay has traceable calibration to isotope dilution-mass spectrometry. Refer to KDIGO guidelines for clinical interpretation. In patients with unstable renal function, e.g. those with acute kidney injury, the eGFR may not accurately reflect actual GFR. eGFR- Date Value Ref Range Status 01/04/2021 >60 Final P.O.C.T. RESULTS: POC done: Yes, See Lab Tab September 24, 2024 TREATMENT: N/A PERIPHERAL IV DATA: Ambulatory: A peripheral IV was started in the Left antecubital site with a Angio cath: 22 gauge. RADIOLOGY DEPARTMENT: CT; Exam(s) Completed: Abdomen/Pelvis SIGNATURE: RT Luis(R) PATIENT NAME: Radha Barnes DATE: September 24, 2024 TIME: 4:01 [facility]07-11-2025 Instructions* Patient Instructions* Karolina Yu APRN.HAMMER SMITH - 09/17/2024 11:13 AM EDT COLONOSCOPY BOWEL PREPARATION INSTRUCTIONS MiraLAX Your doctor has scheduled you for a colonoscopy. To have a successful colonoscopy, you must have a clean colon, that is empty. A clean colon allows your doctor to see the entire colon & diagnose issues like polyps or cancer. For doctors, a clean colon is like driving on a raymundo day; a dirty colon like driving in a storm. It is very important that you follow these instructions exactly, or your colonoscopy may not be as effective, could be canceled, and you may need to do the bowel prep and colonoscopy again. TRANSPORTATION REQUIREMENTS You are receiving IV sedation. For your safety, a responsible adult escort must accompany you to and from your procedure: Your adult escort MUST be present with you at check-in for your colonoscopy. Your adult escort MUST remain in the endoscopy area until you are discharged. Your adult escort MUST transport you home once you are discharged. You are NOT allowed to operate any form of transportation (i.e. drive a car, bicycle, etc) or leavethe [facility]oscopy Center ALONE. It is not safe to do so. If you cannot meet these requirements, your procedure will be canceled. MEDICATION REQUIREMENTS For your safety, certain medications will need to be stopped or adjusted before you can have your procedure: BLOOD THINNERS: If you take blood thinners, such as Coumadin (warfarin), Plavix (clopidogrel), Ticlid (ticlopidine hydrochloride), Agrylin (anagrelide), Xarelto (Rivaroxaban), Pradaxa (Dabigatran), Eliquis (Apixaban), or Effient (Prasugrel), contact the physician who is prescribing these medications at least 2 weeks prior to your procedure to discuss any necessary adjustments. DIABETES: If you take medications for diabetes, your dosage may need to be adjusted. If you are being treated for diabetes with insulin, diabetic pills, or other injectable medicationsdo not take your REGULAR dose after midnight on the day of your procedure. If you are taking any other types of insulin such as Lantus, Humalog, NPH (long- acting insulin), or70/30 insulin, take half your normal dose the day before your procedure. DIABETES/WEIGHT MANAGEMENT: If you take medications for weight-loss, your dosage may need to be adjusted Contact the doctor who prescribes this medication for further instructions. If you take medications for weight-loss like semaglutide (Ozempic, Wegovy, Rybelsus), dulaglutide (Trulicity), liraglutide (Victoza, Saxenda), exenatide (Byetta, Bydureon), or lixisenatide (Adylyxin), stop your medication 1 week prior to your procedure. If you take medications like canagliflozin (Invokana), dapagliflozin (Farxiga, Forxiga), empagliflozin (Jardiance), stop your medication 3 days prior to your procedure. If you take ertugliflozin (Steglatro) stop your medication 4 days prior to your procedure. IRON: If you take iron pills, STOP them 1 week BEFORE your procedure, may resume after. OTHER MEDS: May take all other medications (including aspirin, antibiotics, water pills / diureticslike Lasix or Metolozone, blood pressure meds, etc.) at their usual scheduled time with water. DIET REQUIREMENTS The day before your colonoscopy, you may have a clear liquid diet (see below). The day of your colonoscopy, you may continue a clear liquid diet until 3 hours before your colonoscopy. Within 3 hours of your colonoscopy, take only any medications (as above) with a sip of water. Clear Liquid Diet Broth (chicken, beef or vegetable broth or bullion. Just the broth, no solids). Water Coffee or Tea (NO milk or creamer), but sugar and sugar substitutes are allowed. Clear liquids including clear, yellow, green, blue (NO red, NO orange, NO purple) Sodas / soft drinks; Gatorade or other sports drinks Fruit juice (strained; no-pulp); Qasim-Aid or flavored drinks Plain Jell-O or other gelatins Popsicles or hard candy Bowel prep can work differently from person to person. Some people's bowels move slowly and they may need different instructions. Please see your doctor in office or virtually for personalized bowel prep instructions if you have: BOWEL PREPARATION (MIRALAX/GATORADE) Split Dosing Bowel Prep: This means drinking your bowel prep in two doses. Split dosing helps cleanyour colon better and makes it less likely that your procedure will be canceled. You will need to purchase the following (no prescriptions are needed): 64 ounces Gatorade, Propel, Crystal Lite or other noncarbonated clear liquid sports drink (NOT red,orange, or purple). Diabetic patients buy sugar-free, e.g. Gatorade G2 4 Dulcolax laxative tablets containing 5mg bisacodyl each (do not buy the stool softener) 8.3 oz MiraLAX (238g) powder or generic polyethylene glycol 3350 (find in laxshaye lee) The day before your colonoscopy mix 64 oz of the sports drink with 8.3 oz MiraLAX (238 g) in a pitcher. Stir or shake until MiraLAX completely dissolved. Chill if desired. On the evening before your colonoscopy: 5 PM take 4 Dulcolax laxative tablets with water by mouth. 6 PM drink the first half of the Gatorade/MiraLAX solution Drink one 8-ounce glass every 15 minutes. Six hours before your colonoscopy, drink the second half of the solution. Drink one 8-ounce glass every 15 minutes. You may continue a clear liquid diet until 3 hours before your colonoscopy. Bowel prep can work differently from person to person. Some people's bowels move slowly and they may need different instructions. Please see your doctor in office or virtually for personalized bowel prep instructions if you have: Medical condition that needs special accommodations Had a poor bowel prep results or failed bowel prep attempts in the past. Had difficulty with anesthesia during the procedure. FREQUENTLY ASKED QUESTIONS Q: What if I suffer from constipation? A: Recommend taking extra laxatives to resolve your constipation days prior to entering the bowel prep day. Q: What if have had prior poor preps results in past? A: Contact your physician as you will likely need additional bowel prep instructions. Q: What if I have motility issues like Parkinson's, MS (multiple sclerosis), wheelchair dependent, etc.? or on medications that slow colonic transit times (narcotics, gabapentin, anticholinergic medications etc.) A: Contact your physician as you will likely need extra time and additional laxatives to complete your bowel prep. Q: What if I cannot drink large volume of liquid? A: Start your prep 2-3 hours earlier to allow yourself more time to complete the entire prep. Q: What if I had bariatric surgery? Do I still have to complete the entire prep? A: Yes, gastric bypass surgery involves the stomach & small bowel. You may need to drink smaller amounts, slower (may need more time to complete your bowel prep). Gastric bypass does not alter the length of your colon so you will need to complete the entire bowel prep, it may just take longer time to complete it. Q: What if I am on dialysis? A: Please consult your credit balance specialist prior to scheduling to get instructions pertinent to you. In general, dialysis patients take the Golytely bowel prep and have the procedure same day of their dialysis (colonoscopy in AM, dialysis in PM). Q: How do I know if something is considered as clear liquid diet? A: If you can pour it in a glass and you can see through it, it is considered clear liquid Q: Can I eat nuts, seeds, beans, popcorn, dried fruits, vegetables & fruits that have skin peel? A: No, you will need to not eat these items starting 3 days prior to procedure. Q: Can I take Uber/Lyft/taxi/bus home? A: An adult MUST be present with you at check-in for your colonoscopy and remain in the endoscopy area until you are discharged. You can take Uber home only if this adult escort is with you at check in, remain in the endoscopy area until you are discharged, and takes the Uber with you to home. Q: Can I sleep it off here and drive myself home? A: No, you must have an adult with you at time of procedure check in, remain in the endoscopy center during your procedure, and drive you home. You cannot drive a vehicle after your procedure the rest of the day. Q: What if I can't finish my bowel prep? A: If you cannot complete your entire bowel prep, there is high likelihood that your colonoscopy will need to be rescheduled due to inadequate prep quality. [facility] NoteHNO ID: [id number] Author: KAROLINA YU APRN.CNP Service: ? Author Type: Nurse Practitioner Type: Progress Notes Filed: 09/17/2024 11:54 Note Text: CHIEF COMPLAINT: Patient presents with: Ulcerative pancolitis: Complains of weight loss HPI Radha Barnes is a 24 year old female here today for Ulcerative pancolitis (Complains of weight loss). She was last seen by Sonja Sarmiento PA-c 03/31/24. She was (+) for c.diff at that time and was started on vancomycin 125mg QID x 10 days. There was discussion about starting biologic again after treated for c.diff. Currently: She has lost 42 pounds since she was last seen in 04/2024. Since taking the vancomycin for c.diff in 04/2024, she has not felt well and feels things have worsened. She was having nausea. She has an appetite, but continues to have weight loss. (+) weakness, fatigue. She has a hx of MORGAN and has received iron infusions. No current abdominal pain, but she has been having intermittent pain BM's are loose with occasional blood. Going 5-20 times a day (worst at night). (-) EIM of IBD Last colonoscopy was 2020. Current Outpatient Medications Medication Sig ferrous sulfate (FEOSOL) 325 mg (65 mg iron) tablet Take 1 tablet by mouth once daily. levonorgestrel (MIRENA) 21 mcg/24 hours (8 yrs) 52 mg IUD 1 Each by INTRAUTERINE route as directed. potassium chloride 20 mEq TbER Take 1 tablet by mouth every 12 hours. ondansetron orally disintegrating (ZOFRAN ODT) 4 mg disintegrating tablet Take 1 tablet by mouth every 8 hours as needed for nausea/vomiting. cyanocobalamin 1,000 mcg/mL 1cc I'm weekly x 4 weeks then 1cc monthly (Patient not taking: Reported on 06/08/2024) folic acid 1 mg tablet Take 1 tablet by mouth once daily. No current facility-administered medications for this visit. ALLERGIES No Known Allergies Social History Tobacco Use Smoking status: Never Smokeless tobacco: Never Vaping Use Vaping status: Never Used Substance Use Topics Alcohol use: Not Currently Comment: occasional Drug use: No PAST MEDICAL HISTORY Diagnosis Date Anxiety and depression Childhood overweight, BMI 85-94.9 percentile 08/2015 Iron deficiency anemia Iron deficiency anemia due to chronic blood loss 02/09/2021 Menarche 01/2013 PMH - PAST MEDICAL HISTORY OF 10/15/2006 normal color vision depression Ulcerative colitis (HCC) elevated liver enzymes PAST SURGICAL HISTORY Procedure Laterality Date CAPSULE ENDOSCOPY SMALL BOWEL 01/25/2021 COLONOSCOPY GEN ANES 12/08/2020 EGD 12/08/2020 UNLISTED DIAGNOSTIC GASTROENTEROLOGY PROCEDURE 01/25/2021 FAMILY HISTORY Problem Relation Age of Onset Hypertension Mother other (gluten intolerance) Mother Skin Cancer Mother Hypertension Father Heart Sister murmur as an infant Heart Maternal Grandmother Diabetes Maternal Grandmother Hypertension Maternal Grandfather Heart Maternal Grandfather 60s other (Bladder cancer) Maternal Grandfather smoker Heart Paternal Grandmother Hypertension Paternal Grandmother Hypertension Paternal Grandfather Heart Paternal Grandfather age 52 [place]; adn MGGF REVIEW OF SYSTEMS Review of Systems Gastrointestinal: Positive for abdominal pain and diarrhea. All other systems reviewed and are negative. PHYSICAL EXAM BP 118/76 Pulse 148 Ht 5' 1 (1.55m) Wt 100 lb (45.4kg) SpO2 97% LMP 03/21/2024 BMI 18.90 kg/(m2). Physical Exam Vitals and nursing note reviewed. Constitutional: Appearance: Normal appearance. She is normal weight. Eyes: General: No scleral icterus. Cardiovascular: Rate and Rhythm: Tachycardia present. Pulmonary: Breath sounds: Normal breath sounds. Abdominal: General: Abdomen is flat. Bowel sounds are normal. Palpations: Abdomen is soft. Tenderness: There is abdominal tenderness in the left lower quadrant. There is no guarding or rebound. Skin: General: Skin is warm and dry. Coloration: Skin is pale. Neurological: Mental Status: She is alert and oriented to person, place, and time. Psychiatric: Mood and Affect: Mood normal. Behavior: Behavior normal. Thought Content: Thought content normal. Judgment: Judgment normal. ASSESSMENT: (K51.011) Ulcerative pancolitis with rectal bleeding (HCC) (primary encounter diagnosis) (R63.4) Unintentional weight loss (D64.9) Anemia, unspecified type 1. Ulcerative pancolitis with rectal bleeding (HCC) (Primary) - Ongoing diarrhea, weight loss, fatigue. Plan for updated colonoscopy and blood work. She will need biologic, and would prefer infusion. - may need steroids if not scheduled soon for scopes. - EGD DIAGNOSTIC; Future - COLONOSCOPY DIAGNOSTIC; Future - CT ABD/PEL W IVCON; Future - COMPLETE BLOOD COUNT AND DIFFERENTIAL; Future - COMPREHENSIVE METABOLIC PANEL; Future - C-REACTIVE PROTEIN; Future - VITAMIN B12; Future - IRON AND TIBC; Future - FERRITIN; Future 2. Unintent (more content not included)...[facility]07-11-2025 History of Present illness Narrative* Karolina Yu APRN.HAMMER SMITH - 09/17/2024 11:03 AM EDT CHIEF COMPLAINT: Patient presents with: Ulcerative pancolitis: Complains of weight loss HPI Radha Barnes is a 24 year old female here today for Ulcerative pancolitis (Complains of weight loss). She was last seen by Sonja Sarmiento PA-c 03/31/24. She was (+) for c.diff at that time and was started on vancomycin 125mg QID x 10 days. There was discussion about starting biologic again after treated for c.diff. Currently: She has lost 42 pounds since she was last seen in 04/2024. Since taking the vancomycin for c.diff in 04/2024, she has not felt well and feels things have worsened. She was having nausea. She has an appetite, but continues to have weight loss. (+) weakness, fatigue. She has a hx of MORGAN and has received iron infusions. No current abdominal pain, but she has been having intermittent pain BM's are loose with occasional blood. Going 5-20 times a day (worst at night). (-) EIM of IBD Last colonoscopy was 2020. Current Outpatient Medications Medication Sig ferrous sulfate (FEOSOL) 325 mg (65 mg iron) tablet Take 1 tablet by mouth once daily. levonorgestrel (MIRENA) 21 mcg/24 hours (8 yrs) 52 mg IUD 1 Each by INTRAUTERINE route as directed. potassium chloride 20 mEq TbER Take 1 tablet by mouth every 12 hours. ondansetron orally disintegrating (ZOFRAN ODT) 4 mg disintegrating tablet Take 1 tablet by mouth every 8 hours as needed for nausea/vomiting. cyanocobalamin 1,000 mcg/mL 1cc I'm weekly x 4 weeks then 1cc monthly (Patient not taking: Reportedon 06/08/2024) folic acid 1 mg tablet Take 1 tablet by mouth once daily. No current facility-administered medications for this visit. ALLERGIES No Known Allergies Social History Tobacco Use Smoking status: Never Smokeless tobacco: Never Vaping Use Vaping status: Never Used Substance Use Topics Alcohol use: Not Currently Comment: occasional Drug use: No PAST MEDICAL HISTORY Diagnosis Date Anxiety and depression Childhood overweight, BMI 85-94.9 percentile 08/2015 Iron deficiency anemia Iron deficiency anemia due to chronic blood loss 02/09/2021 Menarche 01/2013 PMH - PAST MEDICAL HISTORY OF 10/15/2006 normal color vision depression Ulcerative colitis (HCC) elevated liver enzymes PAST SURGICAL HISTORY Procedure Laterality Date CAPSULE ENDOSCOPY SMALL BOWEL 01/25/2021 COLONOSCOPY GEN ANES 12/08/2020 EGD 12/08/2020 UNLISTED DIAGNOSTIC GASTROENTEROLOGY PROCEDURE 01/25/2021 FAMILY HISTORY Problem Relation Age of Onset Hypertension Mother other (gluten intolerance) Mother Skin Cancer Mother Hypertension Father Heart Sister murmur as an Heart Maternal Grandmother Diabetes Maternal Grandmother Hypertension Maternal Grandfather Heart Maternal Grandfather 60s other (Bladder cancer) Maternal Grandfather smoker Heart Paternal Grandmother Hypertension Paternal Grandmother Hypertension Paternal Grandfather Heart Paternal Grandfather age 52 [place]; adn MGGF REVIEW OF SYSTEMS Review of Systems Gastrointestinal: Positive for abdominal pain and diarrhea. All other systems reviewed and are negative. PHYSICAL EXAM BP 118/76 Pulse 148 Ht 5' 1 (1.55m) Wt 100 lb (45.4kg) SpO2 97% LMP 03/21/2024 BMI 18.90 kg/(m^2). Physical Exam Vitals and nursing note reviewed. Constitutional: Appearance: Normal appearance. She is normal weight. Eyes: General: No scleral icterus. Cardiovascular: Rate and Rhythm: Tachycardia present. Pulmonary: Breath sounds: Normal breath sounds. Abdominal: General: Abdomen is flat. Bowel sounds are normal. Palpations: Abdomen is soft. Tenderness: There is abdominal tenderness in the left lower quadrant. There is no guarding or rebound. Skin: General: Skin is warm and dry. Coloration: Skin is pale. Neurological: Mental Status: She is alert and oriented to person, place, and time. Psychiatric: Mood and Affect: Mood normal. Behavior: Behavior normal. Thought Content: Thought content normal. Judgment: Judgment normal. ASSESSMENT: (K51.011) Ulcerative pancolitis with rectal bleeding (HCC) (primary encounter diagnosis) (R63.4) Unintentional weight loss (D64.9) Anemia, unspecified type 1. Ulcerative pancolitis with rectal bleeding (HCC) (Primary) - Ongoing diarrhea, weight loss, fatigue. Plan for updated colonoscopy and blood work. She will need biologic, and would prefer infusion. - may need steroids if not scheduled soon for scopes. - EGD DIAGNOSTIC; Future - COLONOSCOPY DIAGNOSTIC; Future - CT ABD/PEL W IVCON; Future - COMPLETE BLOOD COUNT AND DIFFERENTIAL; Future - COMPREHENSIVE METABOLIC PANEL; Future - C-REACTIVE PROTEIN; Future - VITAMIN B12; Future - IRON AND TIBC; Future - FERRITIN; Future 2. Unintentional weight loss - 42 pounds over the past 5 months. Plan for updated EGD/colonoscopy and plan for CT a/p. - EGD DIAGNOSTIC; Future - COLONOSCOPY DIAGNOSTIC; Future - CT ABD/PEL W IVCON; Future - iv contrast (will be provided with radiology test); CT ABD/PEL -Inject, intravenously, once for 1dose.No IV access, insert saline lock prior to the beginning of sedation, infusion, injection of imaging exam. Discontinue saline lock post exam. If Pt. has a central line or IVAD, may access for administration according to line specific nursing protocol. Once exam is complete flush line and de-access according to line specific nursing protocol in theCT contrast administration guidelines link. Dispense: 1 each; Refill: 0 - enteric contrast (will be provided with radiology test); For CT ABD/PEL W IVCON Routine order Administer, As Directed One Time Only, via Oral, Rectal, both Oral and Rectal, Enteric Tube, Stoma or Indwelling Catheter, Enteric Contrast as designated per enteric contrast guidelines Dispense: 1 each;Refill: 0 - COMPLETE BLOOD COUNT AND DIFFERENTIAL; Future - COMPREHENSIVE METABOLIC PANEL; Future - C-REACTIVE PROTEIN; Future - VITAMIN B12; Future - IRON AND TIBC; Future - FERRITIN; Future 3. Anemia, unspecified type - EGD DIAGNOSTIC; Future - COLONOSCOPY DIAGNOSTIC; Future - CT ABD/PEL W IVCON; Future - COMPLETE BLOOD COUNT AND DIFFERENTIAL; Future - COMPREHENSIVE METABOLIC PANEL; Future - C-REACTIVE PROTEIN; Future - VITAMIN B12; Future - IRON AND TIBC; Future - FERRITIN; Future Follow up in office after scopes Karolina Yu APRN.CNP September 17, 2024 11:51 AM documented [facility] NoteHNO ID: [id number] Author: CHERELLE HANDLEY APRN.MAURILIO Service: ? Author Type: Nurse Practitioner Type: Progress Notes Filed: 06/22/2024 12:57 Note Text: This note was created using Michelle. Subjective Radha Barnes is a 24 year old female. Patient presents with: Establish Care Here for feeling unwell. Wants to est care here History of UC, recent cdiff infection and chronic iron def anemia. States she started to feel ill while taking abx for cdiff in apr Was in [place] ER on 06/08 and had low potassium. Was given 15 days of potassium supplements. Has follow up with GI on 07/26 Was advised to start biologic medication for her UC Also due for repeat colonoscopy. Supposed to have iron infusions through hematology but states she only complete 2 out of 5 as she was too fatigued to go get them done. Some sob with exertion and chest tightness at times Water intake is about 2-3 bottles of water daily Having diarrhea daily, 10-15 times per day The history is provided by the patient. No language assistant was used. Review of Systems Constitutional: Positive for fatigue. Negative for appetite change, chills, diaphoresis and fever. HENT: Negative for tinnitus. Eyes: Negative for photophobia and visual disturbance. Respiratory: Positive for chest tightness. Negative for cough, shortness of breath and wheezing. Cardiovascular: Negative for chest pain, palpitations and leg swelling. Gastrointestinal: Positive for diarrhea. Negative for abdominal distention, abdominal pain, anal bleeding, blood in stool, constipation, nausea and vomiting. Genitourinary: Negative. Musculoskeletal: Negative for myalgias. Skin: Negative for rash. Neurological: Positive for dizziness, weakness and light-headedness. Negative for syncope, numbness and headaches. Psychiatric/Behavioral: Negative for dysphoric mood, self-injury, sleep disturbance and suicidal ideas. The patient is not nervous/anxious. All other systems reviewed and are negative. Objective BP 124/83 Pulse 110 Ht 154.9 cm (5' 1) Wt 53.9 kg (118 lb 13.3 oz) LMP 03/21/2024 (Exact Date) SpO2 97% BMI 22.45 kg/m? PAST MEDICAL HISTORY Diagnosis Date Anxiety and depression Childhood overweight, BMI 85-94.9 percentile 08/2015 Iron deficiency anemia Iron deficiency anemia due to chronic blood loss 02/09/2021 Menarche 01/2013 PMH - PAST MEDICAL HISTORY OF 10/15/2006 normal color vision depression Ulcerative colitis (HCC) elevated liver enzymes PAST SURGICAL HISTORY Procedure Laterality Date CAPSULE ENDOSCOPY SMALL BOWEL 01/25/2021 COLONOSCOPY GEN ANES 12/08/2020 EGD 12/08/2020 UNLISTED DIAGNOSTIC GASTROENTEROLOGY PROCEDURE 01/25/2021 Current Outpatient Medications on File Prior to Visit Medication Sig ondansetron orally disintegrating (ZOFRAN ODT) 4 mg disintegrating tablet Take 1 tablet by mouth every 8 hours as needed for nausea/vomiting. Syringe with Needle, Disp, 1 mL 25 gauge x 1 syrg Use to inject B12 1 time a week for 4 weeks then once monthly (Patient not taking: Reported on 06/08/2024) cyanocobalamin 1,000 mcg/mL 1cc I'm weekly x 4 weeks then 1cc monthly (Patient not taking: Reported on 06/08/2024) folic acid 1 mg tablet Take 1 tablet by mouth once daily. ferrous sulfate (FEOSOL) 325 mg (65 mg iron) tablet Take 1 tablet by mouth once daily. dicyclomine (BENTYL) 10 mg capsule Take 1 capsule by mouth three times a day as needed. (Patient not taking: Reported on 06/08/2024) sertraline (ZOLOFT) 100 mg tablet Take 1 tablet by mouth once daily. (Patient not taking: Reported on 06/08/2024) levonorgestrel (MIRENA) 21 mcg/24 hours (8 yrs) 52 mg IUD 1 Each by INTRAUTERINE route as directed. No current facility-administered medications on file prior to visit. ALLERGIES No Known Allergies Physical Exam Vitals and nursing note reviewed. Constitutional: General: She is awake. She is not in acute distress. Appearance: Normal appearance. She is well-developed, well-groomed and normal weight. She is not ill-appearing. HENT: Head: Normocephalic. Eyes: Conjunctiva/sclera: Conjunctivae normal. Pupils: Pupils are equal, round, and reactive to light. Cardiovascular: Rate and Rhythm: Normal rate and regular rhythm. Pulses: Normal pulses. Heart sounds: Normal heart sounds. Pulmonary: Effort: Pulmonary effort is normal. No respiratory distress. Breath sounds: Normal breath sounds. No decreased air movement. No decreased breath sounds or wheezing. Musculoskeletal: General: No swelling, tenderness or signs of injury. Normal range of motion. Cervical back: Full passive range of motion without pain, normal range of motion and neck supple. Right lower leg: No edema. Left lower leg: No edema. Lymphadenopathy: Cervical: No cervical adenopathy. Skin: General: Skin is warm and dry. Capillary Refill: Capillary refill takes less than 2 seconds. Findings: No rash. Neur (more content not included)...[facility]04-15-2025 History of Present illness Narrative* Hyacinth, Cherelle, 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.HAMMER SMITH - 06/22/2024 11:38 AM EDT This note was created using Michelle. Subjective Radha Barnes is a 24 year old female. Patient presents with: Establish Care Here for feeling unwell. Wants to est care here History of UC, recent cdiff infection and chronic iron def anemia. States she started to feel ill while taking abx for cdiff in apr Was in [place] ER on 06/08 and had low potassium. Was given 15 days of potassium supplements. Has follow up with GI on 07/26 Was advised to start biologic medication for her UC Also due for repeat colonoscopy. Supposed to have iron infusions through hematology but states she only complete 2 out of 5 as she was too fatigued to go get them done. Some sob with exertion and chest tightness at times Water intake is about 2-3 bottles of water daily Having diarrhea daily, 10-15 times per day The history is provided by the patient. No language assistant was used. Review of Systems Constitutional: Positive for fatigue. Negative for appetite change, chills, diaphoresis and fever. HENT: Negative for tinnitus. Eyes: Negative for photophobia and visual disturbance. Respiratory: Positive for chest tightness. Negative for cough, shortness of breath and wheezing. Cardiovascular: Negative for chest pain, palpitations and leg swelling. Gastrointestinal: Positive for diarrhea. Negative for abdominal distention, abdominal pain, anal bleeding, blood in stool, constipation, nausea and vomiting. Genitourinary: Negative. Musculoskeletal: Negative for myalgias. Skin: Negative for rash. Neurological: Positive for dizziness, weakness and light-headedness. Negative for syncope, numbnessand headaches. Psychiatric/Behavioral: Negative for dysphoric mood, self-injury, sleep disturbance and suicidal ideas. The patient is not nervous/anxious. All other systems reviewed and are negative. Objective BP 124/83 Pulse 110 Ht 154.9 cm (5' 1) Wt 53.9 kg (118 lb 13.3 oz) LMP 03/21/2024 (Exact Date) SpO2 97% BMI 22.45 kg/m PAST MEDICAL HISTORY Diagnosis Date Anxiety and depression Childhood overweight, BMI 85-94.9 percentile 08/2015 Iron deficiency anemia Iron deficiency anemia due to chronic blood loss 02/09/2021 Menarche 01/2013 PMH - PAST MEDICAL HISTORY OF 10/15/2006 normal color vision depression Ulcerative colitis (HCC) elevated liver enzymes PAST SURGICAL HISTORY Procedure Laterality Date CAPSULE ENDOSCOPY SMALL BOWEL 01/25/2021 COLONOSCOPY GEN ANES 12/08/2020 EGD 12/08/2020 UNLISTED DIAGNOSTIC GASTROENTEROLOGY PROCEDURE 01/25/2021 Current Outpatient Medications on File Prior to Visit Medication Sig ondansetron orally disintegrating (ZOFRAN ODT) 4 mg disintegrating tablet Take 1 tablet by mouth every 8 hours as needed for nausea/vomiting. Syringe with Needle, Disp, 1 mL 25 gauge x 1 syrg Use to inject B12 1 time a week for 4 weeks thenonce monthly (Patient not taking: Reported on 06/08/2024) cyanocobalamin 1,000 mcg/mL 1cc I'm weekly x 4 weeks then 1cc monthly (Patient not taking: Reportedon 06/08/2024) folic acid 1 mg tablet Take 1 tablet by mouth once daily. ferrous sulfate (FEOSOL) 325 mg (65 mg iron) tablet Take 1 tablet by mouth once daily. dicyclomine (BENTYL) 10 mg capsule Take 1 capsule by mouth three times a day as needed. (Patient not taking: Reported on 06/08/2024) sertraline (ZOLOFT) 100 mg tablet Take 1 tablet by mouth once daily. (Patient not taking: Reported on 06/08/2024) levonorgestrel (MIRENA) 21 mcg/24 hours (8 yrs) 52 mg IUD 1 Each by INTRAUTERINE route as directed. No current facility-administered medications on file prior to visit. ALLERGIES No Known Allergies Physical Exam Vitals and nursing note reviewed. Constitutional: General: She is awake. She is not in acute distress. Appearance: Normal appearance. She is well-developed, well-groomed and normal weight. She is not ill-appearing. HENT: Head: Normocephalic. Eyes: Conjunctiva/sclera: Conjunctivae normal. Pupils: Pupils are equal, round, and reactive to light. Cardiovascular: Rate and Rhythm: Normal rate and regular rhythm. Pulses: Normal pulses. Heart sounds: Normal heart sounds. Pulmonary: Effort: Pulmonary effort is normal. No respiratory distress. Breath sounds: Normal breath sounds. No decreased air movement. No decreased breath sounds or wheezing. Musculoskeletal: General: No swelling, tenderness or signs of injury. Normal range of motion. Cervical back: Full passive range of motion without pain, normal range of motion and neck supple. Right lower leg: No edema. Left lower leg: No edema. Lymphadenopathy: Cervical: No cervical adenopathy. Skin: General: Skin is warm and dry. Capillary Refill: Capillary refill takes less than 2 seconds. Findings: No rash. Neurological: General: No focal deficit present. Mental Status: She is alert and oriented to person, place, and time. Mental status is at baseline. Cranial Nerves: No cranial nerve deficit. Sensory: Sensation is intact. No sensory deficit. Motor: Motor function is intact. No weakness. Coordination: Coordination is intact. Gait: Gait is intact. Gait normal. Psychiatric: Attention and Perception: Attention and perception normal. Mood and Affect: Mood and affect normal. Speech: Speech normal. Behavior: Behavior normal. Behavior is cooperative. Thought Content: Thought content normal. Thought content does not include homicidal or suicidal ideation. Cognition and Memory: Cognition and memory normal. Judgment: Judgment normal. ASSESSMENT/PLAN: 1. Hypokalemia - ICD9: 276.8, ICD10: E87.6 (primary diagnosis) - will recheck labs - COMPREHENSIVE METABOLIC PANEL 2. Chest tightness - ICD9: 786.59, ICD10: R07.89 - resolved at this time - XR CHEST 2V FRONTAL/LAT 3. Fatigue, unspecified type - ICD9: 780.79, ICD10: R53.83 - likely due to chronic iron deficiency, UC and recent cdiff infection. Pt did not continue iron infusions. - IRON AND TIBC 4. Dizziness - ICD9: 780.4, ICD10: R42 - same as #3 - ED if severe, discussed red flag symptoms and when to be evaluated in the ED. Pt VU 5. Iron deficiency anemia due to chronic blood loss - ICD9: 280.0, ICD10: D50.0 - follow up hematology 6. History of Clostridium difficile infection - ICD9: V12.09, ICD10: Z86.19 - follow up GI 7. History of ulcerative colitis - ICD9: V12.79, ICD10: Z87.19 - follow up GI 8. Encounter to establish care - ICD9: V65.8, ICD10: Z76.89 - will est care here Follow up to est care, as needed or sooner if new or worsening symptoms. Cherelle Handley APRN.CNP documented in this [facility] Discharge summary Author Dustin Burkett [facility] Note Date/Time June 08, 2024 10:3 8am [facility] Medical Records Department [address] [place] [address] Emergency Department Summary 06/08/24 MR#: [id number] Acct: [id number] Name: RADHA BARNES Rep #:[id number] : 2000 23 From: Dustin Burkett MD PCP: Dr. Ruben Moyer, Status :REG ER Location: ED HPI HPI - GI History of Present Illness Chief Complaint: Abd Pain Informant: patient Narrative Narrative: 23-year-old female presenting with fatigue and persistent diarrhea. She has ulcerative colitis, follows with a senior sql developer of [place], [place]. She states that her oral medication regimen was not controlling her UC, so her GI specialist had her stop her medication and tested her for C. difficile which was positive, and initiated treatment for that. However the patient stopped thetreatment prior to finishing it because she was not tolerating it well and/or feeling very poorly, this was 6 or 7 weeks ago. She states that she had an episode of near syncope couple weeks ago, but has had no lightheadedness or recurrent episodes since then. She states she just picked up her collection kitto retest herself for C. difficile, and if and when she test negative, the plan is to start IV infusion/Biologics for her UC. In the past week, she states she has actually been feeling a little better. However, she states family told her this morning she looked pale and they did not want her driving to work because the last time she had a near syncopal episode she was driving, so the patient went to urgent care but since her heart rate was a little elevated, they sent her here to the ER. Patient states she has had poor appetite and fluid intake related to all of this. She states her urine has been a little dark in the last and amount in the last 2 days, and although she has been feeling better in the last week, with doing activities shetires out very quickly but does not become lightheaded or near syncopal. [facility] Medical History Laceration, obstetrical, first degree Care and examination of lactating mother (spontaneous vaginal delivery) 40 weeks gestation of Shortness of breath Palpitations Tachycardia Iron deficiency anemia Anxiety and depression Ulcerative colitis Home Medications ?Medication ?Instructions ?Recorded ?Last Taken ?Type sertraline 100 mg tablet 100 mg PO DAILY 01/18/24 Unk nown History potassium chloride 20 mEq 20 meq PO BID #30 tabs 06/08 Unknown Rx tablet,extended release Allergy/AdvReac Type Severity Reaction Status Date / Time No Known Allergies Allergy Verified 06/08/24 08:40 Family History (Updated 10/25/22 @ 11:16 by Carol Ann Fountain) Mother Hypertension Gluten intolerance Father Hypertension Sister Heart murmur Grandmother Heart disease Diabetes Grandfather Hypertension Heart disease Cancer Grandmother Heart disease Hypertension Grandfather Myocardial infarction, Onset Age: 52 Surgical History History of esophagogastroduodenoscopy (EGD) History of colonoscopy Social History Smoking Status: Never smoker alcohol intake: never substance use type: does not use ROS ROS ED Constitutional Constitutional ED: Reports anorexia, fatigue and weight loss; Denies chills or fever(s) Eyes Eyes: Denies change in vision or diplopia ENT ENT ED: Denies rhinorrhea or sore throat Cardiovascular Cardiovascular: Denies chest pain, lightheadedness, palpitations or syncope Respiratory/Chest Respiratory/Chest: Denies cough or dyspnea Gastrointestinal Gastrointestinal: Reports diarrhea and hematochezia; Denies abdominal pain, nausea or vomiting Genitourinary Genitourinary ED: Denies dysuria or hematuria Musculoskeletal Musculoskeletal: Denies back pain or neck pain Integumentary Denies abscess or rash Neurologic Neurologic: Denies headache(s), paresthesias or weakness Psychiatric Psychiatric: Denies anxiety or suicidal thoughts EXAM Physical Exam Const Vital Signs: 06/08/24 08:41 06/08/24 09:54 Temperature 98.4 F Temperature Source Oral Pulse Rate 118 H Pulse Rate [Lying] 96 Pulse Rate [Sitting (for 1 minute prior to obtaining)] 101 H Pulse Rate [Standing (for 1 minute prior to obtaining)] 104 H Respiratory Rate 18 Blood Pressure 131/93 H Blood Pressure [Lying] 112/71 Blood Pressure [Sitting (for 1 minute prior to obtaining)] 102/73 Blood Pressure Mean 105 Blood Pressure Mean [Lying] 84 Blood Pressure Mean [Sitting (for 1 minute prior to obtaining)] 82 Pulse Ox 98 Oxygen Delivery Method Room Air Positive well nourished and well developed General Appearance ED: well developed and NAD HEENT Reports moist mucous membranes normocephalic and atraumatic Eyes PERRL and EOMs intact bilaterally Neck full ROM and supple Resp normal respiratory effort and clear to auscultation bilaterally Cardio regular rate, regular rhythm and no murmurs Rate: tachycardic GI non-tender and non-distended Auscultation: normoactive bowel sounds Palpation: soft Back/Spine no CVA tenderness General Back: other FROM Extremity normal to inspection General Extremety ED: Negative for edema, pulses abnormal or tenderness General Extremity: Negative for edema or pulses abnormal Neuro oriented x3, CN's II-XII intact bilaterally and no sensory deficits noted Sensorium / Orientation: awake and alert Motor Exam: strength 5/5 throughout Skin no rashes or lesions noted and no wounds MDM MDM MDM Narrative Medical decision making narrative: Patient looks well clinically, her exam is very benign, except for resting tachycardia. Differential includes dehydration and anemia in context of diarrhea and hematochezia related to her ulcerative colitis, as well as metabolic derangement. Orthostatics are negative, your BUN is very low, she was given IV fluids anyway while we were waiting for this workup. Her potassium is very low which is probably the etiology of her symptoms. She is a little anemic but higher than she was in January, and not anemic enough to be causing symptoms tothis degree. Started potassium placement with both parenteral and oral methods here, I think she can be discharged home with prescription for potassium replacement given her age and stability and functional abilities at this stage. She is following up with her senior sql developer as above. Lab Data Attestation: I reviewed the patient's lab results. Labs: Laboratory Results - last 24 hr 06/08/24 09:43 WBC 10.9 RBC 4.17 L Hgb 11.5 L Hct 35.9 L MCV 86.1 MCH 27.6 MCHC 32.0 RDW Std Deviation TNP RDW Coeff of Neville TNP Plt Count 443 MPV 8.9 Immature Gran % (Auto) 0.500 Neut % (Auto) 74.5 H Lymph % (Auto) 19.4 Nelson % (Auto) 5.1 Eos % (Auto) 0.2 Baso % (Auto) 0.3 Absolute Neuts (auto) 8.1 H Absolute Lymphs (auto) 2.11 Nucleated RBC % 0 Sodium 137 Potassium 2.9 L Chloride 97 L Carbon Dioxide 28.4 Anion Gap 12 BUN 2 L Creatinine 0.54 L Estim Creat Clear Calc 123.31 Est GFR (MDRD) Non-Af 133 BUN/Creatinine Ratio 4.0 L Glucose 88 Calcium 8.2 Blood Type O NEGATIVE Antibody Screen NEGATIVE Discharge Plan Triage Chief Complaint: Abd Pain ED Provider: Dustin Burkett Dx/Rx/DC Orders Clinical Impression: Acute hypokalemia, Acute diarrhea, Exacerbation of ulcerative colitis without complication Instructions: ED Hypokalemia Prescriptions: New potassium chloride 20 mEq tablet extended release 20 meq PO BID Qty: 30 0RF No Action sertraline 100 mg tablet 100 mg PO DAILY Primary Care Provider: Ruben Moyer Referrals: Ruben Moyer DO [Primary Care Provider] - 5-7 Days (And/or your senior sql developer) Print Language: [place]ese Disposition Disposition: Home, Self Care What to do if you have Problems For any increased pain, shortness of breath, bleeding, nausea or vomiting, chestpain, or any unexpected problems, contact your Primary Care Provider. Call [facility] ([phone]) or report to the closest Emergency Room. Call 911 if necessary. 06/08/24 1038 <Electronically signed by Dustin Burkett MD> Cosigner Signature (if applicable): CC: Dr. Ruben Moyer DO ~ Signed [facility] Work Phone: [phone]) 199-510904-01-2025 NoteHNO ID: [id number] Author: TOMASZ CHILDS APRN.HAMMER SMITH Service: ? Author Type: Nurse Practitioner Type: Progress Notes Filed: 06/08/2024 12:09 Note Text: [facility] Subjective HPI HPI Radha Barnes is a 23 year old female who presents today for CC of vomiting on off for 6 weeks, has felt like passing out. Seen by pcp and gi without diagnosis. Symptoms are worsened by nothing specific. Risk factors has hx of UC and recently had cdif infection. Denies possibility of being . .Patient presents with: Vomiting: Vomiting off and on x 6-7 weeks PAST MEDICAL HISTORY Diagnosis Date Anxiety and depression Childhood overweight, BMI 85-94.9 percentile 08/2015 Iron deficiency anemia Iron deficiency anemia due to chronic blood loss 02/09/2021 Menarche 01/2013 PMH - PAST MEDICAL HISTORY OF 10/15/2006 normal color vision depression Ulcerative colitis (HCC) elevated liver enzymes PAST SURGICAL HISTORY Procedure Laterality Date CAPSULE ENDOSCOPY SMALL BOWEL 01/25/2021 COLONOSCOPY GEN ANES 12/08/2020 EGD 12/08/2020 UNLISTED DIAGNOSTIC GASTROENTEROLOGY PROCEDURE 01/25/2021 ALLERGIES Patient has no known allergies. MEDICATIONS ondansetron orally disintegrating (ZOFRAN ODT) 4 mg disintegrating tablet Take 1 tablet by mouth every 8 hours as needed for nausea/vomiting. levonorgestrel (MIRENA) 21 mcg/24 hours (8 yrs) 52 mg IUD 1 Each by INTRAUTERINE route as directed. Syringe with Needle, Disp, 1 mL 25 gauge x 1 syrg Use to inject B12 1 time a week for 4 weeks then once monthly (Patient not taking: Reported on 06/08/2024) cyanocobalamin 1,000 mcg/mL 1cc I'm weekly x 4 weeks then 1cc monthly (Patient not taking: Reported on 06/08/2024) folic acid 1 mg tablet Take 1 tablet by mouth once daily. ferrous sulfate (FEOSOL) 325 mg (65 mg iron) tablet Take 1 tablet by mouth once daily. dicyclomine (BENTYL) 10 mg capsule Take 1 capsule by mouth three times a day as needed. (Patient not taking: Reported on 06/08/2024) sertraline (ZOLOFT) 100 mg tablet Take 1 tablet by mouth once daily. (Patient not taking: Reported on 06/08/2024) FAMILY HISTORY Problem Relation Age of Onset Hypertension Mother other (gluten intolerance) Mother Skin Cancer Mother Hypertension Father Heart Sister murmur as an infant Heart Maternal Grandmother Diabetes Maternal Grandmother Hypertension Maternal Grandfather Heart Maternal Grandfather 60s other (Bladder cancer) Maternal Grandfather smoker Heart Paternal Grandmother Hypertension Paternal Grandmother Hypertension Paternal Grandfather Heart Paternal Grandfather age 52 PA; adn MGGF Social History Tobacco Use Smoking status: Never Smokeless tobacco: Never Vaping Use Vaping status: Never Used Substance Use Topics Alcohol use: Not Currently Comment: occasional Drug use: No Review of Systems Objective BP 110/78 Pulse (!) 128 Temp 36.5 ?C (97.7 ?F) (Tympanic) Resp 18 Wt 56.5 kg (124 lb 9 oz) LMP 03/21/2024 (Exact Date) SpO2 99% BMI 22.78 kg/m? Physical Exam Constitutional: General: She is not in acute distress. Appearance: Normal appearance. She is not toxic-appearing. Cardiovascular: Rate and Rhythm: Regular rhythm. Tachycardia present. Heart sounds: Normal heart sounds. Pulmonary: Effort: Pulmonary effort is normal. Breath sounds: Normal breath sounds. Abdominal: General: Bowel sounds are normal. Palpations: Abdomen is soft. Tenderness: There is generalized abdominal tenderness (mild). Skin: General: Skin is warm and dry. {ASSESSMENT/PLAN: 1. Vomiting, unspecified vomiting type, unspecified whether nausea present - ICD9: 787.03, ICD10: R11.10 (primary diagnosis) Will refer to ER Declines squad Unclear what hospital will go to at this time. 2. Syncope, unspecified syncope type - ICD9: 780.2, ICD10: R55 As above. Tomasz Childs APRN.MAURILIO History and Record Review External record(s) reviewed: prior outpatient record. Disposition The patient was discharged. Transfer to ED was considered. [facility] not [facility] of Present illness Narrative* Tomasz Childs APRN.HAMMER SMITH - 06/08/2024 12:03 PM EDT [facility] Subjective HPI HPI Radha Barnes is a 23 year old female who presents today for CC of vomiting on off for 6 weeks, has felt like passing out. Seen by pcp and gi without diagnosis. Symptoms are worsened by nothingspecific. Risk factors has hx of UC and recently had cdif infection. Denies possibility of being . .Patient presents with: Vomiting: Vomiting off and on x 6-7 weeks PAST MEDICAL HISTORY Diagnosis Date Anxiety and depression Childhood overweight, BMI 85-94.9 percentile 08/2015 Iron deficiency anemia Iron deficiency anemia due to chronic blood loss 02/09/2021 Menarche 01/2013 PMH - PAST MEDICAL HISTORY OF 10/15/2006 normal color vision depression Ulcerative colitis (HCC) elevated liver enzymes PAST SURGICAL HISTORY Procedure Laterality Date CAPSULE ENDOSCOPY SMALL BOWEL 01/25/2021 COLONOSCOPY GEN ANES 12/08/2020 EGD 12/08/2020 UNLISTED DIAGNOSTIC GASTROENTEROLOGY PROCEDURE 01/25/2021 ALLERGIES Patient has no known allergies. MEDICATIONS ondansetron orally disintegrating (ZOFRAN ODT) 4 mg disintegrating tablet Take 1 tablet by mouth every 8 hours as needed for nausea/vomiting. levonorgestrel (MIRENA) 21 mcg/24 hours (8 yrs) 52 mg IUD 1 Each by INTRAUTERINE route as directed. Syringe with Needle, Disp, 1 mL 25 gauge x 1 syrg Use to inject B12 1 time a week for 4 weeks thenonce monthly (Patient not taking: Reported on 06/08/2024) cyanocobalamin 1,000 mcg/mL 1cc I'm weekly x 4 weeks then 1cc monthly (Patient not taking: Reportedon 06/08/2024) folic acid 1 mg tablet Take 1 tablet by mouth once daily. ferrous sulfate (FEOSOL) 325 mg (65 mg iron) tablet Take 1 tablet by mouth once daily. dicyclomine (BENTYL) 10 mg capsule Take 1 capsule by mouth three times a day as needed. (Patient not taking: Reported on 06/08/2024) sertraline (ZOLOFT) 100 mg tablet Take 1 tablet by mouth once daily. (Patient not taking: Reported on 06/08/2024) FAMILY HISTORY Problem Relation Age of Onset Hypertension Mother other (gluten intolerance) Mother Skin Cancer Mother Hypertension Father Heart Sister murmur as an Heart Maternal Grandmother Diabetes Maternal Grandmother Hypertension Maternal Grandfather Heart Maternal Grandfather 60s other (Bladder cancer) Maternal Grandfather smoker Heart Paternal Grandmother Hypertension Paternal Grandmother Hypertension Paternal Grandfather Heart Paternal Grandfather age 52 PA; adn MGGF Social History Tobacco Use Smoking status: Never Smokeless tobacco: Never Vaping Use Vaping status: Never Used Substance Use Topics Alcohol use: Not Currently Comment: occasional Drug use: No Review of Systems Objective BP 110/78 Pulse (!) 128 Temp 36.5 C (97.7 F) (Tympanic) Resp 18 Wt 56.5 kg (124 lb 9 oz) LMP 03/21/2024 (Exact Date) SpO2 99% BMI 22.78 kg/m Physical Exam Constitutional: General: She is not in acute distress. Appearance: Normal appearance. She is not toxic-appearing. Cardiovascular: Rate and Rhythm: Regular rhythm. Tachycardia present. Heart sounds: Normal heart sounds. Pulmonary: Effort: Pulmonary effort is normal. Breath sounds: Normal breath sounds. Abdominal: General: Bowel sounds are normal. Palpations: Abdomen is soft. Tenderness: There is generalized abdominal tenderness (mild). Skin: General: Skin is warm and dry. {ASSESSMENT/PLAN: 1. Vomiting, unspecified vomiting type, unspecified whether nausea present - ICD9: 787.03, ICD10: R11.10 (primary diagnosis) Will refer to ER Declines squad Unclear what hospital will go to at this time. 2. Syncope, unspecified syncope type - ICD9: 780.2, ICD10: R55 As above. Tomasz Childs APRN.CNP History and Record Review External record(s) reviewed: prior outpatient record. Disposition The patient was discharged. Transfer to ED was considered. Reason for not transferring: [facility] Medical Records Department [address] [place] [address] Emergency Department Summary 06/08/24 MR#: [id number] Acct: [id number] Name: RADHA BARNES Rep #:[id number] : 2000 23 From: Dustin Burkett MD PCP: Dr. Ruben Moyer, DO Status :REG ER Location: ED HPI HPI - GI History of Present Illness Chief Complaint: Abd Pain Informant: patient Narrative Narrative: 23-year-old female presenting with fatigue and persistent diarrhea. She has ulcerative colitis, follows with a senior sql developer of [place], [place]. She states that her oral medication regimen was not controlling her UC, so her GI specialist had her stop her medicationand tested her for C. difficile which was positive, and initiated treatment for that. However the patient stopped thetreatment prior to finishing it because she was not tolerating it well and/or feeling very poorly, this was 6 or 7 weeks ago. She states that she had an episode of near syncope couple weeks ago, but has had no lightheadedness or recurrent episodes since then. She states she just picked up her collection kitto retest herself for C. difficile, and if and when she test negative, the plan is to start IV infusion/Biologics for her UC. In the past week, she states she has actually been feeling a little better. However, she states family told her this morning she looked pale and they did not want her driving to work because the lasttime she had a near syncopal episode she was driving, so the patient went to urgent care but since her heart rate was a little elevated, they sent her here to the ER. Patient states she has had poor appetite and fluid intake related to all of this. She states her urine has been a little dark in thelast and amount in the last 2 days, and although she has been feeling better in the last week, withdoing activities shetires out very quickly but does not become lightheaded or near syncopal. [facility] Medical History Laceration, obstetrical, first degree Care and examination of lactating mother (spontaneous vaginal delivery) 40 weeks gestation of Shortness of breath Palpitations Tachycardia Iron deficiency anemia Anxiety and depression Ulcerative colitis Home Medications ?Medication ?Instructions ?Recorded ?Last Taken ?Type sertraline 100 mg tablet 100 mg PO DAILY 01/18/24 Unk nown History potassium chloride 20 mEq 20 meq PO BID #30 tabs 06/08 Unknown Rx tablet,extended release Allergy/AdvReac Type Severity Reaction Status Date / Time No Known Allergies Allergy Verified 06/08/24 08:40 Family History (Updated 10/25/22 @ 11:16 by Carol Ann Fountain) Mother Hypertension Gluten intolerance Father Hypertension Sister Heart murmur Grandmother Heart disease Diabetes Grandfather Hypertension Heart disease Cancer Grandmother Heart disease Hypertension Grandfather Myocardial infarction, Onset Age: 52 Surgical History History of esophagogastroduodenoscopy (EGD) History of colonoscopy Social History Smoking Status: Never smoker alcohol intake: never substance use type: does not use ROS ROS ED Constitutional Constitutional ED: Reports anorexia, fatigue and weight loss; Denies chills or fever(s) Eyes Eyes: Denies change in vision or diplopia ENT ENT ED: Denies rhinorrhea or sore throat Cardiovascular Cardiovascular: Denies chest pain, lightheadedness, palpitations or syncope Respiratory/Chest Respiratory/Chest: Denies cough or dyspnea Gastrointestinal Gastrointestinal: Reports diarrhea and hematochezia; Denies abdominal pain, nausea or vomiting Genitourinary Genitourinary ED: Denies dysuria or hematuria Musculoskeletal Musculoskeletal: Denies back pain or neck pain Integumentary Denies abscess or rash Neurologic Neurologic: Denies headache(s), paresthesias or weakness Psychiatric Psychiatric: Denies anxiety or suicidal thoughts EXAM Physical Exam Const Vital Signs: 06/08/24 08:41 06/08/24 09:54 Temperature 98.4 F Temperature Source Oral Pulse Rate 118 H Pulse Rate [Lying] 96 Pulse Rate [Sitting (for 1 minute prior to obtaining)] 101 H Pulse Rate [Standing (for 1 minute prior to obtaining)] 104 H Respiratory Rate 18 Blood Pressure 131/93 H Blood Pressure [Lying] 112/71 Blood Pressure [Sitting (for 1 minute prior to obtaining)] 102/73 Blood Pressure Mean 105 Blood Pressure Mean [Lying] 84 Blood Pressure Mean [Sitting (for 1 minute prior to obtaining)] 82 Pulse Ox 98 Oxygen Delivery Method Room Air Positive well nourished and well developed General Appearance ED: well developed and NAD HEENT Reports moist mucous membranes normocephalic and atraumatic Eyes PERRL and EOMs intact bilaterally Neck full ROM and supple Resp normal respiratory effort and clear to auscultation bilaterally Cardio regular rate, regular rhythm and no murmurs Rate: tachycardic GI non-tender and non-distended Auscultation: normoactive bowel sounds Palpation: soft Back/Spine no CVA tenderness General Back: other FROM Extremity normal to inspection General Extremety ED: Negative for edema, pulses abnormal or tenderness General Extremity: Negative for edema or pulses abnormal Neuro oriented x3, CN's II-XII intact bilaterally and no sensory deficits noted Sensorium / Orientation: awake and alert Motor Exam: strength 5/5 throughout Skin no rashes or lesions noted and no wounds MDM MDM MDM Narrative Medical decision making narrative: Patient looks well clinically, her exam is very benign, except for resting tachycardia. Differential includes dehydration and anemia in context of diarrhea and hematochezia related to her ulcerative colitis, as well as metabolic derangement. Orthostatics are negative, your BUN is very low, she was given IV fluids anyway while we were waiting for this workup. Her potassium is very low which is probably the etiology of her symptoms. She is a little anemic but higher than she was in January, and not anemic enough to be causing symptoms tothis degree. Started potassium placement with both parenteral and oral methods here, I think she can be discharged home with prescription for potassium replac ement given her age and stability and functional abilities at this stage. She is following up with her senior sql developer as above. Lab Data Attestation: I reviewed the patient's lab results. Labs: Laboratory Results - last 24 hr 06/08/24 09:43 WBC 10.9 RBC 4.17 L Hgb 11.5 L Hct 35.9 L MCV 86.1 MCH 27.6 MCHC 32.0 RDW Std Deviation TNP RDW Coeff of Neville TNP Plt Count 443 MPV 8.9 Immature Gran % (Auto) 0.500 Neut % (Auto) 74.5 H Lymph % (Auto) 19.4 Nelson % (Auto) 5.1 Eos % (Auto) 0.2 Baso % (Auto) 0.3 Absolute Neuts (auto) 8.1 H Absolute Lymphs (auto) 2.11 Nucleated RBC % 0 Sodium 137 Potassium 2.9 L Chloride 97 L Carbon Dioxide 28.4 Anion Gap 12 BUN 2 L Creatinine 0.54 L Estim Creat Clear Calc 123.31 Est GFR (MDRD) Non-Af 133 BUN/Creatinine Ratio 4.0 L Glucose 88 Calcium 8.2 Blood Type O NEGATIVE Antibody Screen NEGATIVE Discharge Plan Triage Chief Complaint: Abd Pain ED Provider: Dustin Burkett Dx/Rx/DC Orders Clinical Impression: Acute hypokalemia, Acute diarrhea, Exacerbation of ulcerative colitis without complication Instructions: ED Hypokalemia Prescriptions: New potassium chloride 20 mEq tablet extended release 20 meq PO BID Qty: 30 0RF No Action sertraline 100 mg tablet 100 mg PO DAILY Primary Care Provider: Ruben Moyer Referrals: Ruben Moyer, [Primary Care Provider] - 5-7 Days (And/or your senior sql developer) Print Language: South Sudanese Disposition Disposition: Home, Self Care What to do if you have Problems For any increased pain, shortness of breath, bleeding, nausea or vomiting, chestpain, or any unexpected problems, contact your Primary Care Provider. Call [facility] ([phone]) or report tothe closest Emergency Room. Call 911 if necessary. 06/08/24 1038 Cosigner Signature (if applicable): CC: Dr. Ruben Moyer DO ~ Signed [facility]03-24-2025 NoteHNO ID: [id number] Author: DESIRE MOYER DO Service: ? Author Type: Physician Type: Progress Notes Filed: 06/07/2024 20:08 Note Text: VIRTUAL VISIT PROGRESS NOTE This is a virtual visit using [employer] Video Visit. It required patient-provider interaction for the medical decision making as documented below. I have communicated my name and active licensure. The patient's identity and physical location were verified at the time of this visit. Either the patient or their legal contact center representative has been informed of the risks and benefits of -- and alternatives to -- treatment through a remote evaluation and consents to proceed with the evaluation remotely. Radha Barnes is a 23 year old female seen for recent diagnosis of Cdiff. Patient feeling fatigued after medication treatment- dizziness, vomiting. HISTORY REVIEWED (electronic chart updated): PAST MEDICAL HISTORY Diagnosis Date Anxiety and depression Childhood overweight, BMI 85-94.9 percentile 08/2015 Iron deficiency anemia Iron deficiency anemia due to chronic blood loss 02/09/2021 Menarche 01/2013 PMH - PAST MEDICAL HISTORY OF 10/15/2006 normal color vision depression Ulcerative colitis (HCC) elevated liver enzymes PAST SURGICAL HISTORY Procedure Laterality Date CAPSULE ENDOSCOPY SMALL BOWEL 01/25/2021 COLONOSCOPY GEN ANES 12/08/2020 EGD 12/08/2020 UNLISTED DIAGNOSTIC GASTROENTEROLOGY PROCEDURE 01/25/2021 FAMILY HISTORY Problem Relation Age of Onset Hypertension Mother other (gluten intolerance) Mother Skin Cancer Mother Hypertension Father Heart Sister murmur as an infant Heart Maternal Grandmother Diabetes Maternal Grandmother Hypertension Maternal Grandfather Heart Maternal Grandfather 60s other (Bladder cancer) Maternal Grandfather smoker Heart Paternal Grandmother Hypertension Paternal Grandmother Hypertension Paternal Grandfather Heart Paternal Grandfather age 52 PA; adn MGGF Social History Tobacco Use Smoking status: Never Smokeless tobacco: Never Vaping Use Vaping status: Never Used Substance Use Topics Alcohol use: Not Currently Comment: occasional Drug use: No Current Outpatient Medications Medication Sig ondansetron orally disintegrating (ZOFRAN ODT) 4 mg disintegrating tablet Take 1 tablet by mouth every 8 hours as needed for nausea/vomiting. Syringe with Needle, Disp, 1 mL 25 gauge x 1 syrg Use to inject B12 1 time a week for 4 weeks then once monthly cyanocobalamin 1,000 mcg/mL 1cc I'm weekly x 4 weeks then 1cc monthly folic acid 1 mg tablet Take 1 tablet by mouth once daily. ferrous sulfate (FEOSOL) 325 mg (65 mg iron) tablet Take 1 tablet by mouth once daily. dicyclomine (BENTYL) 10 mg capsule Take 1 capsule by mouth three times a day as needed. sertraline (ZOLOFT) 100 mg tablet Take 1 tablet by mouth once daily. levonorgestrel (MIRENA) 21 mcg/24 hours (8 yrs) 52 mg IUD 1 Each by INTRAUTERINE route as directed. No current facility-administered medications for this visit. ALLERGIES No Known Allergies ASSESSMENT: (R19.5) Loose stools (primary encounter diagnosis) (R11.2) Nausea and vomiting, unspecified vomiting type ASSESSMENT/PLAN: 1. Loose stools - ICD9: 787.7, ICD10: R19.5 (primary diagnosis) - advised to follow up with Gastroenterology 2. Nausea and vomiting, unspecified vomiting type - ICD9: 787.01, ICD10: R11.2 3. Overweight with body mass index (BMI) of 25 to 25.9 in adult - ICD9: 278.02, V85.21, ICD10: E66.3, Z68.25 Scribe Attestation: The patient is seen and examined by Dr. Moyer and the following reflects his/her service. Scribed by Ariela Monsalve May 31, 2024 8:20 AM Provider Attestation: I, Desire Moyer, DO personally performed the services described in this documentation. All medical record entries made by the scribe were at my direction and in my presence. I have reviewed the chart and discharge instructions (if applicable) and agree that the record reflects my personal performance and is accurate and complete. Electronically Signed: Desire Moyer DO, May 28, 2024 8:08 [facility]03-24-2025 History of Present illness Narrative* Dion Moyerland BroDO - 05/31/2024 8:19 AM EDT VIRTUAL VISIT PROGRESS NOTE This is a virtual visit using [employer] Video Visit. It required patient- provider interaction for the medical decision making as documented below. I have communicated my name and active licensure. The patient's identity and physical location wereverified at the time of this visit. Either the patient or their legal contact center representative has been informed of the risks and benefits of -- and alternatives to -- treatment through a remote evaluation andconsents to proceed with the evaluation remotely. Radha Barnes is a 23 year old female seen for recent diagnosis of Cdiff. Patient feeling fatigued after medication treatment- dizziness, vomiting. HISTORY REVIEWED (electronic chart updated): PAST MEDICAL HISTORY Diagnosis Date Anxiety and depression Childhood overweight, BMI 85-94.9 percentile 08/2015 Iron deficiency anemia Iron deficiency anemia due to chronic blood loss 02/09/2021 Menarche 01/2013 PMH - PAST MEDICAL HISTORY OF 10/15/2006 normal color vision depression Ulcerative colitis (HCC) elevated liver enzymes PAST SURGICAL HISTORY Procedure Laterality Date CAPSULE ENDOSCOPY SMALL BOWEL 01/25/2021 COLONOSCOPY GEN ANES 12/08/2020 EGD 12/08/2020 UNLISTED DIAGNOSTIC GASTROENTEROLOGY PROCEDURE 01/25/2021 FAMILY HISTORY Problem Relation Age of Onset Hypertension Mother other (gluten intolerance) Mother Skin Cancer Mother Hypertension Father Heart Sister murmur as an Heart Maternal Grandmother Diabetes Maternal Grandmother Hypertension Maternal Grandfather Heart Maternal Grandfather 60s other (Bladder cancer) Maternal Grandfather smoker Heart Paternal Grandmother Hypertension Paternal Grandmother Hypertension Paternal Grandfather Heart Paternal Grandfather age 52 PA; adn MGGF Social History Tobacco Use Smoking status: Never Smokeless tobacco: Never Vaping Use Vaping status: Never Used Substance Use Topics Alcohol use: Not Currently Comment: occasional Drug use: No Current Outpatient Medications Medication Sig ondansetron orally disintegrating (ZOFRAN ODT) 4 mg disintegrating tablet Take 1 tablet by mouth every 8 hours as needed for nausea/vomiting. Syringe with Needle, Disp, 1 mL 25 gauge x 1 syrg Use to inject B12 1 time a week for 4 weeks thenonce monthly cyanocobalamin 1,000 mcg/mL 1cc I'm weekly x 4 weeks then 1cc monthly folic acid 1 mg tablet Take 1 tablet by mouth once daily. ferrous sulfate (FEOSOL) 325 mg (65 mg iron) tablet Take 1 tablet by mouth once daily. dicyclomine (BENTYL) 10 mg capsule Take 1 capsule by mouth three times a day as needed. sertraline (ZOLOFT) 100 mg tablet Take 1 tablet by mouth once daily. levonorgestrel (MIRENA) 21 mcg/24 hours (8 yrs) 52 mg IUD 1 Each by INTRAUTERINE route as directed. No current facility-administered medications for this visit. ALLERGIES No Known Allergies ASSESSMENT: (R19.5) Loose stools (primary encounter diagnosis) (R11.2) Nausea and vomiting, unspecified vomiting type ASSESSMENT/PLAN: 1. Loose stools - ICD9: 787.7, ICD10: R19.5 (primary diagnosis) - advised to follow up with Gastroenterology 2. Nausea and vomiting, unspecified vomiting type - ICD9: 787.01, ICD10: R11.2 3. Overweight with body mass index (BMI) of 25 to 25.9 in adult - ICD9: 278.02, V85.21, ICD10: E66.3, Z68.25 Scribe Attestation: The patient is seen and examined by Dr. Moyer and the following reflects his/her service. Scribed by Ariela Monsalve May 31, 2024 8:20 AM Provider Attestation: I, Desire Moyer DO personally performed the services described in this documentation. All medical record entries made by the scribe were at my direction and in my presence. I have reviewed the chart and discharge instructions (if applicable) and agree that the record reflects my personal per formance and is accurate and complete. Electronically Signed: Desire Moyer DO, May 28, 2024 8:08 PM [facility] Telephone encounter Note * Telephone Encounter - Sonja Solis RN - 05/18/2024 11:10 AM EDT Please see below and contact pt to reschedule. Thank you. [facility]03-11-[facility] Miscellaneous Notes* Telephone Encounter - Sonja Solis RN - 05/18/2024 11:10 AM EDT Please see below and contact pt to reschedule. Thank you. documented [facility]25 Telephone encounter Note * Telephone Encounter - Kayla Babin LPN - 05/18/2024 10:02 AM EDT Please advise [facility]03-11[facility] Miscellaneous Notes* Telephone Encounter - Kayla Babin LPN - 05/18/2024 10:02 AM EDT Please advise documented in [facility] Telephone encounter Note * Telephone Encounter - Ana Paula Cortez - 05/14/2024 10:15 AM EST She is scheduled for 05/17 and 05/19. Ana Paula Cortez [facility]03-07-[facility] Miscellaneous Notes* Telephone Encounter - Ana Paula Cortez - 05/14/2024 10:15 AM EST She is scheduled for 05/17 and 05/19. Ana Paula Cortez * Telephone Encounter - Hailey Banegas - 05/10/2024 2:35 PM EST I called and left a voicemail for Radha to call back on her mobile phone. The number listed underhome phone just rang and stated that the voicemail has not been set up at this time. Hailey Hernandez * Telephone Encounter - Sonja Solis RN - 05/10/2024 10:32 AM EST Can we try and contact pt again? She canceled on Friday and is currently scheduled for tomorrow. Thank you. * Telephone Encounter - Ana Paula Cortez - 05/05/2024 9:54 AM EST LVM for pt to call back and let us know about her infusion tomorrow and rescheduling missed appts. Ana Paula Cortez * Telephone Encounter - Sonja Soils RN - 05/05/2024 9:45 AM EST Pt has not been in for iron infusions due to illness. Left requesting a return call. She is scheduled tomorrow but has missed all previously scheduled infusions due to this illness. Ifshe returns call, can we see if she's coming tomorrow? Either way, we will have to adjust her schedule. Thank you! documented [facility] Telephone encounter Note * Telephone Encounter - Hailey Banegas - 05/10/2024 2:35 PM EST I called and left a voicemail for Radha to call back on her mobile phone. The number listed underhome phone just rang and stated that the voicemail has not been set up at this time. Hailey Belles Pss [facility]03-03-[facility] Telephone encounter Note* Telephone Encounter - Sonja Solis RN - 05/10/2024 10:32 AM EST Can we try and contact pt again? She canceled on Friday and is currently scheduled for tomorrow. Thank you. [facility]03-03-[facility] Telephone encounter Note* Telephone Encounter - Edwina Uribe LISW - 05/10/2024 10:17 AM EST Pt noted on [facility] 1st time treatment report. Pt has a non-oncology regimen. No social work followup indicated. CIELO Cooper [facility]03-03-20[facility] Miscellaneous Notes* Telephone Encounter - Edwina Uribe LISW - 05/10/2024 10:17 AM EST Pt noted on [facility] 1st time treatment report. Pt has a non-oncology regimen. No social work followup indicated. CIELO Cooper [facility] Telephone encounter Note * Telephone Encounter - Sonja Sarmiento PA-C - 05/10/2024 8:49 AM EST C diff order placed. [facility]03-03-2025 Miscellaneous Notes* Telephone Encounter - Sonja Sarmiento PA-C - 05/10/2024 8:49 AM EST C diff order placed. documented in this [facility] Telephone encounter Note * Telephone Encounter - Ana Paula Cortez - 05/05/2024 9:54 AM EST LVM for pt to call back and let us know about her infusion tomorrow and rescheduling missed appts. Ana Paula Cortez [facility]02-26-[facility] Telephone encounter Note* Telephone Encounter - Sonja Solis RN - 05/05/2024 9:45 AM EST Pt has not been in for iron infusions due to illness. Left VM requesting a return call. She is scheduled tomorrow but has missed all previously scheduled infusions due to this illness. Ifshe returns call, can we see if she's coming tomorrow? Either way, we will have to adjust her schedule. Thank you! [facility]02-18-[facility]25 Telephone encounter Note* Telephone Encounter - Simi Hart - 04/27/2024 2:46 PM EST Added to 04/29 appointment notes [facility] Work Phone: [phone]) 453-978102-18-2025 Miscellaneous Notes* Telephone Encounter - Simi Hart - 04/27/2024 2:46 PM EST Added to 04/29 appointment notes * Telephone Encounter - Sonja Solis RN - 04/27/2024 9:11 AM EST Pt + for C. Diff. Pt advised to delay today's iron treatment until end of cycle to allow 48hrs of Vancomycin. Contacted pt, she is aware to schedule additional dose of iron when here on . [place] hilario [place]. documented [facility] encounterG[facility]02-[facility]25 Telephone encounter Note * Telephone Encounter - Sonja Solis RN - 04/27/2024 9:11 AM EST Pt + for C. Diff. Pt advised to delay today's iron treatment until end of cycle to allow 48hrs of Vancomycin. Contacted pt, she is aware to schedule additional dose of iron when here on . [place] per [place]. [facility]02-12-[facility]25 NoteHNO ID: [id number] Author: ERIKA ELIZABETH RN Service: ? Author Type: Registered Nurse Type: Progress Notes Filed: 04/21/2024 16:55 Note Text: While inserting IV pt. Stated she started to feel nauseous and requested chair to be reclined. After IV placement confirmed with blood returned and secured with dressing pt. Stated she had to go to the bathroom. While assisted pt to the bathroom pt. Started losing her balance. This nurse lowered pt. To the floor, check carotid pulse (positive) and called for help. Once lowered pt. Stated I feel nauseous, dizzy, and I have to go the bathroom. X1 clear emesis. Assisted pt from floor to toilet. VS BP 103/69 P- 106. Pt. States I feel better now. Nick Perez RN who assisted this nurse notified Tristen Evangelista CNP of pt. Status. N.O. per Tristen Evangelista for hydration. See Flowsheet for VS.[facility] 04-21-2024 History of Present illness Narrative* Erika Elizabeth RN - 04/21/2024 3:18 PM EST While inserting IV pt. Stated she started to feel nauseous and requested chair to be reclined. After IV placement confirmed with blood returned and secured with dressing pt. Stated she had to go to the bathroom. While assisted pt to the bathroom pt. Started losing her balance. This nurse lowered pt. To the floor, check carotid pulse (positive) and called for help. Once lowered pt. Stated I feelnauseous, dizzy, and I have to go the bathroom. X1 clear emesis. Assisted pt from floor to toilet.VS BP 103/69 P- 106. Pt. States I feel better now. Nick Perez RN who assisted this nurse notified Tristen Evangelista CNP of pt. Status. N.O. per Tristen Evangelista for hydration. See Flowsheet for VS. documented in this encounterGlen[facility]02-11-2025 NoteHNO ID: [id number] Author: LUIS FRANKLIN PA-C Service: ? Author Type: Physician Record Tester Type: Progress Notes Filed: 04/20/2024 10:08 Note Text: This note was created using [employer]. Subjective Radha Barnes is a 23 year old female. Patient is a 23-year-old female who complains of congestion and cough that she has been experiencing for the past 1 day. Patient reports mild throat irritation and denies sinus pressure or ear pain. Patient has no history of asthma or COPD and does not smoke. Patient reports no fever, chills or myalgia. 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 Review of Systems HENT: Positive for congestion. Respiratory: Positive for cough. All other systems reviewed and are negative. Objective BP 118/72 Pulse 118 Temp 37 ?C (98.6 ?F) Resp 16 Wt 63.5 kg (139 lb 15.9 oz) LMP 03/21/2024 (Exact Date) SpO2 97% BMI 25.60 kg/m? Physical Exam Vitals and nursing note reviewed. Constitutional: Appearance: Normal appearance. She is normal weight. HENT: Head: Normocephalic and atraumatic. Right Ear: Tympanic membrane, ear canal and external ear normal. Left Ear: Tympanic membrane, ear canal and external ear normal. Nose: Nose normal. Mouth/Throat: Mouth: Mucous membranes are moist. Pharynx: Oropharynx is clear. Eyes: Extraocular Movements: Extraocular movements intact. Conjunctiva/sclera: Conjunctivae normal. Pupils: Pupils are equal, round, and reactive to light. Cardiovascular: Rate and Rhythm: Normal rate and regular rhythm. Pulses: Normal pulses. Heart sounds: Normal heart sounds. Pulmonary: Effort: Pulmonary effort is normal. Breath sounds: Normal breath sounds. Musculoskeletal: Cervical back: Normal range of motion and neck supple. Skin: General: Skin is warm and dry. Capillary Refill: Capillary refill takes less than 2 seconds. Neurological: General: No focal deficit present. Mental Status: She is alert and oriented to person, place, and time. Psychiatric: Mood and Affect: Mood normal. Behavior: Behavior normal. Thought Content: Thought content normal. Judgment: Judgment normal. Assessment and Plan Unremarkable physical exam findings as noted above. Supportive care instructions were discussed and the patient verbalizes excellent understanding of same. CLINICAL IMPRESSION: Acute URI ASSESSMENT/PLAN: 1. Acute URI - ICD9: 465.9, ICD10: J06.9 [facility]NALISA [facility]02-11-2025 History of Present illness Narrative* Luis Franklin PA-C - 04/20/2024 10:07 AM EST This note was created using [employer]. Subjective Radha Barnes is a 23 year old female. Patient is a 23-year-old female who complains of congestion and cough that she has been experiencing for the past 1 day. Patient reports mild throat irritation and denies sinus pressure or ear pain. Patient has no history of asthma or COPD and does not smoke. Patient reports no fever, chills or myalgia. 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 Review of Systems HENT: Positive for congestion. Respiratory: Positive for cough. All other systems reviewed and are negative. Objective BP 118/72 Pulse 118 Temp 37 C (98.6 F) Resp 16 Wt 63.5 kg (139 lb 15.9 oz) LMP 03/21/2024(Exact Date) SpO2 97% BMI 25.60 kg/m Physical Exam Vitals and nursing note reviewed. Constitutional: Appearance: Normal appearance. She is normal weight. HENT: Head: Normocephalic and atraumatic. Right Ear: Tympanic membrane, ear canal and external ear normal. Left Ear: Tympanic membrane, ear canal and external ear normal. Nose: Nose normal. Mouth/Throat: Mouth: Mucous membranes are moist. Pharynx: Oropharynx is clear. Eyes: Extraocular Movements: Extraocular movements intact. Conjunctiva/sclera: Conjunctivae normal. Pupils: Pupils are equal, round, and reactive to light. Cardiovascular: Rate and Rhythm: Normal rate and regular rhythm. Pulses: Normal pulses. Heart sounds: Normal heart sounds. Pulmonary: Effort: Pulmonary effort is normal. Breath sounds: Normal breath sounds. Musculoskeletal: Cervical back: Normal range of motion and neck supple. Skin: General: Skin is warm and dry. Capillary Refill: Capillary refill takes less than 2 seconds. Neurological: General: No focal deficit present. Mental Status: She is alert and oriented to person, place, and time. Psychiatric: Mood and Affect: Mood normal. Behavior: Behavior normal. Thought Content: Thought content normal. Judgment: Judgment normal. Assessment and Plan Unremarkable physical exam findings as noted above. Supportive care instructions were discussed andthe patient verbalizes excellent understanding of same. CLINICAL IMPRESSION: Acute URI ASSESSMENT/PLAN: 1. Acute URI - ICD9: 465.9, ICD10: J06.9 Luis Franklin PA-C documented in this encounterG[facility]02-07-2025 NoteHNO ID: [id number] Author: DESIRE MOYER DO Service: ? Author Type: Physician Type: Progress Notes Filed: 04/25/2024 19:30 Note Text: [facility] [place] Desire Moyer DO [address] [place] [address] Date of Evaluation: 04/16/2024 Patient Name: Radha Barnes : 2000 Chief Complaint: Patient presents with: Follow Up b12: Pt is going to have the injections administered at home by her mother Repeat labs have been ordered by Hemo Anemia: Pt is going to resume iron infusions Ordered by Dr. Evangelista Pt is taking iron po tid and folic acid IUD in place for Menorrhagia Ulcerative Colitis: Following with Gastro Will complete testing prior to restarting Mesalamine Subjective Ms. Barnes is a 23 year old female who presents with the following complaint(s): The history is provided by the patient. Diarrhea This is a chronic problem. The stool consistency is described as Bloody. Pertinent negatives include no headaches and no cough. Her past medical history is significant for inflammatory bowel disease. Past medical history comments: UC. Review of Systems Constitutional: Negative for fatigue and unexpected weight change. HENT: Negative for nosebleeds. Eyes: Negative for redness and visual disturbance. Respiratory: Negative for apnea, cough and shortness of breath. Cardiovascular: Negative for chest pain, palpitations and leg swelling. Gastrointestinal: Positive for diarrhea (chronic). Genitourinary: Negative for hematuria. Neurological: Negative for dizziness, weakness, light-headedness, numbness and headaches. Hematological: Does not bruise/bleed easily. Psychiatric/Behavioral: The patient is not nervous/anxious. PAST MEDICAL HISTORY Diagnosis Date Anxiety and depression Childhood overweight, BMI 85-94.9 percentile 08/2015 Iron deficiency anemia Iron deficiency anemia due to chronic blood loss 02/09/2021 Menarche 01/2013 PMH - PAST MEDICAL HISTORY OF 10/15/2006 normal color vision depression Ulcerative colitis (HCC) elevated liver enzymes PAST SURGICAL HISTORY Procedure Laterality Date CAPSULE ENDOSCOPY SMALL BOWEL 01/25/2021 COLONOSCOPY GEN ANES 12/08/2020 EGD 12/08/2020 UNLISTED DIAGNOSTIC GASTROENTEROLOGY PROCEDURE 01/25/2021 FAMILY HISTORY Problem Relation Age of Onset Hypertension Mother other (gluten intolerance) Mother Skin Cancer Mother Hypertension Father Heart Sister murmur as an Heart Maternal Grandmother Diabetes Maternal Grandmother Hypertension Maternal Grandfather Heart Maternal Grandfather 60s other (Bladder cancer) Maternal Grandfather smoker Heart Paternal Grandmother Hypertension Paternal Grandmother Hypertension Paternal Grandfather Heart Paternal Grandfather age 52 [place]; adn MGGF Social History Tobacco Use Smoking status: Never Smokeless tobacco: Never Vaping Use Vaping status: Never Used Substance Use Topics Alcohol use: Not Currently Comment: occasional Drug use: No Current Outpatient Medications Medication Sig cyanocobalamin 1,000 mcg/mL 1cc I'm weekly x 4 weeks then 1cc monthly folic acid 1 mg tablet Take 1 tablet by mouth once daily. ferrous sulfate (FEOSOL) 325 mg (65 mg iron) tablet Take 1 tablet by mouth once daily. dicyclomine (BENTYL) 10 mg capsule Take 1 capsule by mouth three times a day as needed. sertraline (ZOLOFT) 100 mg tablet Take 1 tablet by mouth once daily. levonorgestrel (MIRENA) 21 mcg/24 hours (8 yrs) 52 mg IUD 1 Each by INTRAUTERINE route as directed. No current facility-administered medications for this visit. I have confirmed and edited as necessary the past medical, family and social histories, HPI, and ROS obtained by others. Objective BP 100/60 Pulse 106 Ht 5' 2 (1.58m) Wt 140 lb (63.5kg) SpO2 98% LMP 03/21/2024 BMI 25.60 kg/(m2). Physical Exam Vitals and nursing note reviewed. Constitutional: General: She is not in acute distress. Appearance: Normal appearance. She is well-developed and overweight. She is not ill-appearing. HENT: Head: Normocephalic. Left Ear: External ear normal. Nose: Nose normal. Mouth/Throat: Pharynx: Uvula midline. Eyes: General: Lids are normal. Vision grossly intact. Gaze aligned appropriately. Extraocular Movements: Extraocular movements intact. Conjunctiva/sclera: Conjunctivae normal. Pupils: Pupils are equal, round, and reactive to light. Neck: Thyroid: No thyroid mass, thyromegaly or thyroid tenderness. Trachea: Trachea and phonation normal. Cardiovascular: Rate and Rhythm: Normal rate and regular rhythm. Pulses: Normal pulses. Heart sounds: Normal heart sounds. Pulmonary: Effort: Pulmonary effort is normal. Breath sounds: Normal breath sounds. Abdominal: General: Abdomen is flat. Bowel sounds are normal. Pal (more content not included)...[facility]02-07-2025 History of Present illness Narrative* Desire Moyer DO - 04/16/2024 1:32 PM EST Images from the original note were not included. [facility] [place] [facility] [address] [place] [address] Date of Evaluation: 04/16/2024 Patient Name: Radha Barnes : 2000 Chief Complaint: Patient presents with: Follow Up b12: Pt is going to have the injections administered at home by her mother Repeat labs have been ordered by Hemo Anemia: Pt is going to resume iron infusions Ordered by Dr. Evangelista Pt is taking iron po tid and folic acid IUD in place for Menorrhagia Ulcerative Colitis: Following with Gastro Will complete testing prior to restarting Mesalamine Subjective Ms. Barnes is a 23 year old female who presents with the following complaint(s): The history is provided by the patient. Diarrhea This is a chronic problem. The stool consistency is described as Bloody. Pertinent negatives include no headaches and no cough. Her past medical history is significant for inflammatory bowel disease.Past medical history comments: UC. Review of Systems Constitutional: Negative for fatigue and unexpected weight change. HENT: Negative for nosebleeds. Eyes: Negative for redness and visual disturbance. Respiratory: Negative for apnea, cough and shortness of breath. Cardiovascular: Negative for chest pain, palpitations and leg swelling. Gastrointestinal: Positive for diarrhea (chronic). Genitourinary: Negative for hematuria. Neurological: Negative for dizziness, weakness, light-headedness, numbness and headaches. Hematological: Does not bruise/bleed easily. Psychiatric/Behavioral: The patient is not nervous/anxious. PAST MEDICAL HISTORY Diagnosis Date Anxiety and depression Childhood overweight, BMI 85-94.9 percentile 08/2015 Iron deficiency anemia Iron deficiency anemia due to chronic blood loss 02/09/2021 Menarche 01/2013 PMH - PAST MEDICAL HISTORY OF 10/15/2006 normal color vision depression Ulcerative colitis (HCC) elevated liver enzymes PAST SURGICAL HISTORY Procedure Laterality Date CAPSULE ENDOSCOPY SMALL BOWEL 01/25/2021 COLONOSCOPY GEN ANES 12/08/2020 EGD 12/08/2020 UNLISTED DIAGNOSTIC GASTROENTEROLOGY PROCEDURE 01/25/2021 FAMILY HISTORY Problem Relation Age of Onset Hypertension Mother other (gluten intolerance) Mother Skin Cancer Mother Hypertension Father Heart Sister murmur as an Heart Maternal Grandmother Diabetes Maternal Grandmother Hypertension Maternal Grandfather Heart Maternal Grandfather 60s other (Bladder cancer) Maternal Grandfather smoker Heart Paternal Grandmother Hypertension Paternal Grandmother Hypertension Paternal Grandfather Heart Paternal Grandfather age 52 [place]; adn MGGF Social History Tobacco Use Smoking status: Never Smokeless tobacco: Never Vaping Use Vaping status: Never Used Substance Use Topics Alcohol use: Not Currently Comment: occasional Drug use: No Current Outpatient Medications Medication Sig cyanocobalamin 1,000 mcg/mL 1cc I'm weekly x 4 weeks then 1cc monthly folic acid 1 mg tablet Take 1 tablet by mouth once daily. ferrous sulfate (FEOSOL) 325 mg (65 mg iron) tablet Take 1 tablet by mouth once daily. dicyclomine (BENTYL) 10 mg capsule Take 1 capsule by mouth three times a day as needed. sertraline (ZOLOFT) 100 mg tablet Take 1 tablet by mouth once daily. levonorgestrel (MIRENA) 21 mcg/24 hours (8 yrs) 52 mg IUD 1 Each by INTRAUTERINE route as directed. No current facility-administered medications for this visit. I have confirmed and edited as necessary the past medical, family and social histories, HPI, and ROS obtained by others. Objective BP 100/60 Pulse 106 Ht 5' 2 (1.58m) Wt 140 lb (63.5kg) SpO2 98% LMP 03/21/2024 BMI 25.60 kg/(m^2). Physical Exam Vitals and nursing note reviewed. Constitutional: General: She is not in acute distress. Appearance: Normal appearance. She is well-developed and overweight. She is not ill-appearing. HENT: Head: Normocephalic. Left Ear: External ear normal. Nose: Nose normal. Mouth/Throat: Pharynx: Uvula midline. Eyes: General: Lids are normal. Vision grossly intact. Gaze aligned appropriately. Extraocular Movements: Extraocular movements intact. Conjunctiva/sclera: Conjunctivae normal. Pupils: Pupils are equal, round, and reactive to light. Neck: Thyroid: No thyroid mass, thyromegaly or thyroid tenderness. Trachea: Trachea and phonation normal. Cardiovascular: Rate and Rhythm: Normal rate and regular rhythm. Pulses: Normal pulses. Heart sounds: Normal heart sounds. Pulmonary: Effort: Pulmonary effort is normal. Breath sounds: Normal breath sounds. Abdominal: General: Abdomen is flat. Bowel sounds are normal. Palpations: Abdomen is soft. Musculoskeletal: General: Normal range of motion. Right shoulder: Normal. Left shoulder: Normal. Cervical back: Normal, full passive range of motion without pain and neck supple. No spinous process tenderness. Thoracic back: Normal. Lumbar back: Normal. Right knee: Normal. Left knee: Normal. Right lower leg: No edema. Left lower leg: No edema. Skin: General: Skin is warm and dry. Neurological: General: No focal deficit present. Mental Status: She is alert and oriented to person, place, and time. Mental status is at baseline. Sensory: Sensation is intact. Motor: Motor function is intact. Psychiatric: Attention and Perception: Attention and perception normal. Mood and Affect: Mood normal. Speech: Speech normal. Behavior: Behavior normal. Thought Content: Thought content normal. Judgment: Judgment normal. Data Reviewed: Most recent labs ASSESSMENT/PLAN: 1. B12 deficiency - ICD9: 266.2, ICD10: E53.8 (primary diagnosis) - Seen by Hematology today Injections to be started. Reviewed recent lab work. 2. Elevated liver enzymes - ICD9: 790.5, ICD10: R74.8 - Obtain US, advised to discuss with Gastroenterology. - US ABD RIGHT UPPER QUADRANT 3. Folic acid deficiency - ICD9: 266.2, ICD10: E53.8 - Newly managed by Hematology. 4. Ulcerative colitis with other complication, unspecified location (HCC) - ICD9: 556.9, ICD10: K51.918 - Managed by Gastroenterology. - Obtain US. - US ABD RIGHT UPPER QUADRANT 5. Overweight with body mass index (BMI) of 25 to 25.9 in adult - ICD9: 278.02, V85.21, ICD10: E66.3, Z68.25 Desire Moyer DO Return if symptoms worsen or fail to improve. Attestation: Scribe Attestation: The patient is seen and examined by Dr. Moyer and the following reflects his/her service. Scribed by Ariela Monsalve April 16, 2024 1:32 PMProvider Attestation: I, Desire Moyer DO personally performed the services described in this documentation. All medical record entries made by the scribe were at my direction and in my presence. I have reviewed the chart and discharge instructions (if applicable) and agree that the record reflects my personal per formance and is accurate and complete. Electronically Signed: Desire Moyer DO, April 16, 2024 1:37 PM documented in this encounterG[facility]02-[facility] History of Present illness Narrative* Evelyne Evangelista - 04/16/2024 10:30 AM EST Radha Barnes 2000 04/16/2024 Patient presents today as a referral from PCP for management of MORGAN. She has been seen by Dr. Trisha Rm, however [place] is much closer to home for her. HPI per Dr. Rico HPI: Radha Barnes is a 22 year old female with iron deficiency anemia secondary to ulcerative colitis and menorrhagia. She was referred by Giana Arceo PA-C for evaluation of anemia. She has [...] IV Monoferric 02/23/2021, 03/22/2022. No acute complications. She presents today for follow-up of iron deficiency anemia First , 25W+3, NAJMA in 03/18/2023. Off [...] Ferritin 30.4, transferrin sat 10.8%, B12 260. Interval History: Ms. Barnes presents today as a transfer of care from [facility] for management of MORGAN. She has known hx ofUC, for which she is following with GI in [place]. She notes current UC flare, frequent bloody diarrhea, she is not currently on treatment at this time. Previously on humira which was held during . No recent illness, fevers, chills or NS. She denies any SOB, CP. No current abd pain. No changes inurinary habits. She is currently taking PO iron, folate and B12. No significant improvement in ironstudies with PO iron. She notes that it does cause her GI upset at time but also slows down her diarrhea. No other supplement use or PO medications. IUD - hormonal Menses is currently pretty light regular monthly cycles. Has a 13 month old. Not currently Tolerated previous IV iron well. No issues with monoferric or iron sucrose. We reviewed her labs and indication for IV iron today. PAST MEDICAL HISTORY Diagnosis Date Anxiety and depression Childhood overweight, BMI 85-94.9 percentile 08/2015 Iron deficiency anemia Iron deficiency anemia due to chronic blood loss 02/09/2021 Menarche 01/2013 PMH - PAST MEDICAL HISTORY OF 10/15/2006 normal color vision depression Ulcerative colitis (HCC) elevated liver enzymes PAST SURGICAL HISTORY Procedure Laterality Date CAPSULE ENDOSCOPY SMALL BOWEL 01/25/2021 COLONOSCOPY GEN ANES 12/08/2020 EGD 12/08/2020 UNLISTED DIAGNOSTIC GASTROENTEROLOGY PROCEDURE 01/25/2021 Current Outpatient Medications Medication Sig Dispense Refill cyanocobalamin 1,000 mcg/mL 1cc I'm weekly x 4 weeks then 1cc monthly 1 Each 11 ferrous sulfate (IRON) 325 mg (65 mg iron) tablet Take 1 tablet by mouth once daily. 30 tablet 5 folic acid 1 mg tablet Take 1 tablet by mouth once daily. 30 tablet 5 dicyclomine (BENTYL) 10 mg capsule Take 1 capsule by mouth three times a day as needed. 90 capsule 1 sertraline (ZOLOFT) 100 mg tablet Take 1 tablet by mouth once daily. 30 tablet 5 levonorgestrel (MIRENA) 21 mcg/24 hours (8 yrs) 52 mg IUD 1 Each by INTRAUTERINE route as directed.1 Each 0 folic acid 1 mg tablet Take 1 tablet by mouth once daily. 90 tablet 3 ferrous sulfate (FEOSOL) 325 mg (65 mg iron) tablet Take 1 tablet by mouth once daily. 90 tablet 3 No current facility-administered medications for this visit. ALLERGIES No Known Allergies FAMILY HISTORY Problem Relation Age of Onset Hypertension Mother other (gluten intolerance) Mother Skin Cancer Mother Hypertension Father Heart Sister murmur as an Heart Maternal Grandmother Diabetes Maternal Grandmother Hypertension Maternal Grandfather Heart Maternal Grandfather 60s other (Bladder cancer) Maternal Grandfather smoker Heart Paternal Grandmother Hypertension Paternal Grandmother Hypertension Paternal Grandfather Heart Paternal Grandfather age 52 [place]; adn MGGF Social History Tobacco Use Smoking status: Never Smokeless tobacco: Never Vaping Use Vaping status: Never Used Substance Use Topics Alcohol use: Not Currently Comment: occasional Drug use: No I have confirmed and edited as necessary, the PFSH and ROS obtained by others on 04/16/2024 . Review of Systems: All systems reviewed on 04/16/2024 with pertinent positives and negatives as outlined in HPI or interval history. 04/16/24 1029 BP: 115/74 Pulse: 116 Temp: 36.6 C (97.8 F) TempSrc: Temporal SpO2: 97% Weight: 63.7 kg (140 lb 8 oz) Height: 157.5 cm (5' 2) Body mass index is 25.7 kg/m . Physical Exam: ECOG PS: 0 Pain Intensity: 0 General: Age-appropriate well developed. NAD. HEENT: Normocephalic, no sclera icterus. Neck: Supple. Chest: Clear bilaterally, not labored. Heart: Normal S1 and S2, RRR Abdomen: Soft, nontender, bowel sounds present. Extremities: No edema. Neurological: Grossly intact. Skin: No rashes or jaundice. Psychiatric: Alert and oriented. Appropriate mood and affect. I have performed the physical exam today (04/16/2024) and have edited the note to correlate with current findings. Labs WBC (k/uL) Date Value 04/01/2024 11.33 (H) RBC (m/uL) Date Value 04/01/2024 4.17 Hemoglobin (g/dL) Date Value 04/01/2024 10.0 (L) Hematocrit (%) Date Value 04/01/2024 33.2 (L) MCV (fL) Date Value 04/01/2024 79.6 (L) MCH (pg) Date Value 04/01/2024 24.0 (L) MCHC (g/dL) Date Value 04/01/2024 30.1 (L) RDW-CV (%) Date Value 04/01/2024 14.1 Platelet Count (k/uL) Date Value 04/01/2024 545 (H) MPV (fL) Date Value 04/01/2024 9.5 Glucose (mg/dL) Date Value 03/31/2024 69 (L) BUN (mg/dL) Date Value 03/31/2024 4 (L) Creatinine (mg/dL) Date Value 03/31/2024 0.56 (L) Sodium (mmol/L) Date Value 03/31/2024 136 Potassium (mmol/L) Date Value 03/31/2024 3.8 Chloride (mmol/L) Date Value 03/31/2024 99 CO2 (mmol/L) Date Value 03/31/2024 25 Protein, Total (g/dL) Date Value 03/31/2024 7.6 Albumin (g/dL) Date Value 03/31/2024 4.1 Calcium, Total (mg/dL) Date Value 03/31/2024 9.0 Alkaline Phosphatase (U/L) Date Value 03/31/2024 160 (H) Bilirubin, Total (mg/dL) Date Value 03/31/2024 0.3 AST (U/L) Date Value 03/31/2024 54 (H) ALT (U/L) Date Value 03/31/2024 24 Cholesterol, Total (mg/dL) Date Value 03/31/2024 94 Triglyceride (mg/dL) Date Value 03/31/2024 66 Assessment/Plan: 1. Iron deficiency anemia. - previously seen by Dr. Ana Rico at [facility], tx of care to [facility], closer to her home. - Secondary to bleeding and malabsorption from ulcerative pancolitis. Not currently on treatment - having frequent bloodly bms - Did not respond to Ferrous sulfate 325 mg TID. She recent resumed PO daily however does experience GI upset. - Received IV Monoferric 1000 mg on 02/23/21, 03/22/22, tolerated and responded well. - Last dose of IV iron sucrose 300 - 01/03/2023 - will plan for repeat IV iron sucrose 200 mg x5 - discussed that she may require maintenance dosing as she continues to experience chronic blood loss 2/2 UC, pt acknowledged - CBC, iron studies, ferritin about 8 weeks following last dose of IV iron 2. Thrombocytosis. - Likely secondary to iron deficiency anemia and/or UC. - cont to monitor 3. Ulcerative pancolitis with rectal bleeding. - s/p EGD and colonoscopy 12/2020, capsule endoscopy 01/2021. - Symptoms improved on Humira. Off Humira since 06/2022 due to . - Follows with Giana Arceo PA-C. 4. B12 deficiency. - B12 295 on 08/29/22. Likely secondary to ulcerative colitis. Chronic blood loss - Cont with B12 1000 mcg SL daily. - recheck MMA, b12 with next 5. Folate Deficiency - continue with folic acid. Repeat labs and OV 8 weeks from last dose of IV iron CBC, CMP, folate, b12, MMA, ferritin, iron studies, vit d. Evelyne Evangelista APRN.HAMMER SMITH I spent a total of 45 minutes on the date of the service which included preparing to see the patient, [id number] patient care, completing clinical documentation, obtaining and/or reviewing separately obtained history, counseling and educating the patient/family/caregiver, and ordering medications, tests, or procedures. Portions of this note including HPI, ROS, impression/plan may have been copied forward as to provide important historical information essential in contributing to medical decision making. Documentation has been reviewed and edited as necessary to support clinical decision making for today's visit and to reflect my own independent evaluation of this patient. [facility] NoteHNO ID: [id number] Author: EVELYNE EVANGELISTA, ? Service: ? Author Type: Nurse Practitioner Type: Progress Notes Filed: 04/16/2024 14:54 Note Text: Radha Barnes 2000 04/16/2024 Patient presents today as a referral from PCP for management of MORGAN. She [facility], however [place] is much closer to home for her. HPI per Dr. Rico HPI: Radha Barnes is a 22 year old female with iron deficiency anemia secondary to ulcerative colitis and menorrhagia. She was referred by Giana Arceo PA-C for evaluation of anemia. She has [...] IV Monoferric 02/23/2021, 03/22/2022. No acute complications. She presents today for follow-up of iron deficiency anemia First , 25W+3, NAJMA in 03/18/2023. Off [...] Ferritin 30.4, transferrin sat 10.8%, B12 260. Interval History: Ms. Barnes presents today as a transfer of care from [facility] for management of MORGAN. She has known hx of UC, for which she is following with GI in [place]. She notes current UC flare, frequent bloody diarrhea, she is not currently on treatment at this time. Previously on humira which was held during . No recent illness, fevers, chills or NS. She denies any SOB, CP. No current abd pain. No changes in urinary habits. She is currently taking PO iron, folate and B12. No significant improvement in iron studies with PO iron. She notes that it does cause her GI upset at time but also slows down her diarrhea. No other supplement use or PO medications. IUD - hormonal Menses is currently pretty light regular monthly cycles. Has a 13 month old. Not currently Tolerated previous IV iron well. No issues with monoferric or iron sucrose. We reviewed her labs and indication for IV iron today. PAST MEDICAL HISTORY Diagnosis Date Anxiety and depression Childhood overweight, BMI 85-94.9 percentile 08/2015 Iron deficiency anemia Iron deficiency anemia due to chronic blood loss 02/09/2021 Menarche 01/2013 PMH - PAST MEDICAL HISTORY OF 10/15/2006 normal color vision depression Ulcerative colitis (HCC) elevated liver enzymes PAST SURGICAL HISTORY Procedure Laterality Date CAPSULE ENDOSCOPY SMALL BOWEL 01/25/2021 COLONOSCOPY GEN ANES 12/08/2020 EGD 12/08/2020 UNLISTED DIAGNOSTIC GASTROENTEROLOGY PROCEDURE 01/25/2021 Current Outpatient Medications Medication Sig Dispense Refill cyanocobalamin 1,000 mcg/mL 1cc I'm weekly x 4 weeks then 1cc monthly 1 Each 11 ferrous sulfate (IRON) 325 mg (65 mg iron) tablet Take 1 tablet by mouth once daily. 30 tablet 5 folic acid 1 mg tablet Take 1 tablet by mouth once daily. 30 tablet 5 dicyclomine (BENTYL) 10 mg capsule Take 1 capsule by mouth three times a day as needed. 90 capsule 1 sertraline (ZOLOFT) 100 mg tablet Take 1 tablet by mouth once daily. 30 tablet 5 levonorgestrel (MIRENA) 21 mcg/24 hours (8 yrs) 52 mg IUD 1 Each by INTRAUTERINE route as directed. 1 Each 0 folic acid 1 mg tablet Take 1 tablet by mouth once daily. 90 tablet 3 ferrous sulfate (FEOSOL) 325 mg (65 mg iron) tablet Take 1 tablet by mouth once daily. 90 tablet 3 No current facility-administered medications for this visit. ALLERGIES No Known Allergies FAMILY HISTORY Problem Relation Age of Onset Hypertension Mother other (gluten intolerance) Mother Skin Cancer Mother Hypertension Father Heart Sister murmur as an infant Heart Maternal Grandmother Diabetes Maternal Grandmother Hypertension Maternal Grandfather Heart Maternal Grandfather 60s other (Bladder cancer) Maternal Grandfather smoker Heart Paternal Grandmother Hypertension Paternal Grandmother Hypertension Paternal Grandfather Heart Paternal Grandfather age 52 PA; adn MGGF Social History Tobacco Use Smoking status: Never Smokeless tobacco: Never Vaping Use Vaping status: Never Used Substance Use Topics Alcohol use: Not Currently Comment: occasional Drug use: No I have confirmed and edited as necessary, the PFSH and ROS obtained by others on 04/16/2024 . Review of Systems: All systems reviewed on 04/16/2024 with pertinent positives and negatives as outlined (more content not included)...[facility]02-03-2025 Telephone encounter Note* Telephone Encounter - Simi Hart - 04/12/2024 1:06 PM EST Scheduled correctly with patient [facility] Work Phone: [phone]) 291-196002-03-2025 Miscellaneous Notes* Telephone Encounter - Simi Hart - 04/12/2024 1:06 PM EST Scheduled correctly with patient * Telephone Encounter - Simi Hart - 04/09/2024 3:22 PM EST An appointment for 04/16 that was scheduled with Judy has been canceled. Appointment was scheduled from outside of [place] office. Judy does not see new patients. Message was left on patient's cell vm to return call and reschedule with Evelyne. Please use hematology referral and add Anemia to appointment notes. documented in this encounterG[facility]01-31-[facility] Telephone encounter Note * Telephone Encounter - Simi Hart - 04/09/2024 3:22 PM EST An appointment for 04/16 that was scheduled with Judy has been canceled. Appointment was scheduled from outside of [place] office. Judy does not see new patients. Message was left on patient's cell vm to return call and reschedule with Evelyne. Please use hematology referral and add Anemia to appointment notes. [facility]01-28[facility] Telephone encounter Note* Telephone Encounter - Kayla Babin LPN - 04/06/2024 10:03 AM EST Pt coming into office on 04/16 to f/u with Dr. Moyer. Talked to pt about the orders placed and her history. Pt has UC and has hx of anemia, malabsorbtion in the past. PO iron didn't work for her and she was given iv iron infusions. So was on B12 injections and SL b12 supplements. She was sched for EGD, colonoscopy and capsule scope, and was found . She want to find director of clinical applications closer to her home, will await call from referrals. Will discuss options and treatment with Dr when she comes in. [facility]01-[facility] Miscellaneous Notes* Telephone Encounter - Kayla Babin LPN - 04/06/2024 10:03 AM EST Pt coming into office on 04/16 to f/u with Dr. Moyer. Talked to pt about the orders placed and her history. Pt has UC and has hx of anemia, malabsorbtion in the past. PO iron didn't work for her and she was given iv iron infusions. So was on B12 injections and SL b12 supplements. She was sched for EGD, colonoscopy and capsule scope, and was found . She want to find director of clinical applications closer to her home, will await call from referrals. Will discuss options and treatment with Dr when she comes in. * Telephone Encounter - Kayla Babin LPN - 04/05/2024 4:37 PM EST ----- Message from Desire Moyer DO sent at 04/05/2024 3:15 PM EST ----- Anemic. Encapsontronic hem consult start b12 shots feosol folate written * Telephone Encounter - Kayla Babin LPN - 04/05/2024 4:22 PM EST Pt is currently under the care of Gastro for Ulcerative Colitis. Pt was under the care of Hem/Onc Dr. Rico in 2023 History of B12 Deficiency. Iron infusions Was rx'd Iron and folic acid by you on 04/02/2024 and 04/05/2024. Was on iron 325mg TID in 2020 along with Suzie C. * Telephone Encounter - Kayla Babin LPN - 04/05/2024 4:22 PM EST ----- Message from Desire Moyer DO sent at 04/05/2024 3:09 PM EST ----- Gi conjsult chronic liver enzymes documented in this encounterG[facility]01-27-[facility]25 Telephone encounter Note * Telephone Encounter - Kayla Babin LPN - 04/05/2024 4:37 PM EST ----- Message from Desire Moyer DO sent at 04/05/2024 3:15 PM EST ----- Anemic. Encapsontronic hem consult start b12 shots feosol folate written [facility]01-[facility] Telephone encounter Note* Telephone Encounter - Kayla Babin LPN - 04/05/2024 4:22 PM EST Pt is currently under the care of Gastro for Ulcerative Colitis. Pt was under the care of Hem/Onc Dr. Rico in 2023 History of B12 Deficiency. Iron infusions Was rx'd Iron and folic acid by you on 04/02/2024 and 04/05/2024. Was on iron 325mg TID in 2020 along with Suzie C. [facility]01-[facility] Telephone encounter Note* Telephone Encounter - Kayla Babin LPN - 04/05/2024 4:22 PM EST ----- Message from Desire Moyer DO sent at 04/05/2024 3:09 PM EST ----- Gi conjsult chronic liver enzymes [facility]01-24-[facility] Telephone encounter Note* Telephone Encounter - Desire Moyer DO - 04/02/2024 11:53 AM EST Iron and folate def Iron 325 daily Folic acid 1 daily sent Get cbc monthly x 3 months [facility]01-24-[facility] Miscellaneous Notes* Telephone Encounter - Desire Moyer DO - 04/02/2024 11:53 AM EST Iron and folate def Iron 325 daily Folic acid 1 daily sent Get cbc monthly x 3 months * Telephone Encounter - Kayla Babin LPN - 04/02/2024 11:51 AM EST What about her lab results? * Telephone Encounter - Desire Moyer DO - 04/02/2024 11:45 AM EST Ordered * Telephone Encounter - Kayla Babin LPN - 04/02/2024 11:24 AM EST Please advise * Telephone Encounter - Kayla Babin LPN - 04/01/2024 1:08 PM EST Pt would like to have you order a hcg quant for , she doesn't believe that she is. * Telephone Encounter - Kayla Babin LPN - 04/01/2024 12:03 PM EST Pt was in office 03/31/2024 with [facility]ast[facility] and has the following dx: 1. Ulcerative pancolitis with rectal bleeding (HCC) - COMPLETE BLOOD COUNT; Future - COMPREHENSIVE METABOLIC PANEL; Future - SEDIMENTATION RATE, WESTERGREN; Future - C-REACTIVE PROTEIN; Future - VITAMIN D 25 HYDROXY; Future - VITAMIN B12; Future - CALPROTECTIN,FECAL - C. DIFFICILE PCR - ENTERIC BACTERIAL PANEL BY PCR - CRYPTOSPORIDIUM AND GIARDIA ANTIGENS BY EIA - PANC ELASTASE, FECAL Additional testing ordered by gastro - Will check basic labs, Celiac serology, stool studies to r/o ID - If stool negative for ID, will start on pred taper - Pt due for repeat colonoscopy. Reports she does not wish to start Humira again and would prefer infusion alternative such as Entyvio. Informed we will discuss maintenance med options after updated testing complete - Avoid antidiarrheals, continue oral hydration * Telephone Encounter - Kayla Babin LPN - 04/01/2024 11:57 AM EST ----- Message from Desire Moyer DO sent at 04/01/2024 10:04 AM EST ----- She is anemic and white ct up ? Ill need to see in office and discuss. Luis Alfredo cárdenas ill need further testing. Anemia panel ordered documented in this encounterG[facility]01-24-[facility]25 Telephone encounter Note * Telephone Encounter - Kayla Babin LPN - 04/02/2024 11:51 AM EST What about her lab results? [facility]01-[facility] Tele[facility] encounter Note* Telephone Encounter - Desire Moyer DO - 04/02/2024 11:45 AM EST Ordered [facility]01-[facility] Tele[facility] encounter Note* Telephone Encounter - Kayla Babin LPN - 04/02/2024 11:24 AM EST Please advise [facility]01-23-[facility] Telephone encounter Note* Telephone Encounter - Kayla Babin LPN - 04/01/2024 1:08 PM EST Pt would like to have you order a hcg quant for , she doesn't believe that she is. [facility]01-[facility] Telephone encounter Note* Telephone Encounter - Kayla Babin LPN - 04/01/2024 12:03 PM EST Pt was in office 03/31/2024 with Gasto and has the following dx: 1. Ulcerative pancolitis with rectal bleeding (HCC) - COMPLETE BLOOD COUNT; Future - COMPREHENSIVE METABOLIC PANEL; Future - SEDIMENTATION RATE, WESTERGREN; Future - C-REACTIVE PROTEIN; Future - VITAMIN D 25 HYDROXY; Future - VITAMIN B12; Future - CALPROTECTIN,FECAL - C. DIFFICILE PCR - ENTERIC BACTERIAL PANEL BY PCR - CRYPTOSPORIDIUM AND GIARDIA ANTIGENS BY EIA - PANC ELASTASE, FECAL Additional testing ordered by gastro - Will check basic labs, Celiac serology, stool studies to r/o ID - If stool negative for ID, will start on pred taper - Pt due for repeat colonoscopy. Reports she does not wish to start Humira again and would prefer infusion alternative such as Entyvio. Informed we will discuss maintenance med options after updated testing complete - Avoid antidiarrheals, continue oral hydration [facility]01-[facility] Telephone encounter Note* Telephone Encounter - Kayla Babin LPN - 04/01/2024 11:57 AM EST ----- Message from Desire Moyer DO sent at 04/01/2024 10:04 AM EST ----- She is anemic and white ct up ? Ill need to see in office and discuss. Luis Alfredo cárdenas ill need further testing. Anemia panel ordered [facility]01-22-[facility]25 NoteHNO ID: [id number] Author: SONJA SARMIENTO PA-C Service: ? Author Type: Physician Record Tester Type: Progress Notes Filed: 03/31/2024 10:30 Note Text: CHIEF COMPLAINT: Patient presents with: Recheck: Ulcerative Pancolitis- pt states she is feeling worse than she was her ESTELA HPI Radha Barnes is a 23 year old female here today for Recheck (Ulcerative Pancolitis- pt states she is feeling worse than she was her ESTELA ) Patient tells me that she has been dealing with significant flare symptoms of abdominal pain and diarrhea in the last two weeks. Pain is getting intense. Seeing blood for the majority of her bowel movements. Moving bowels 2-4x per day. Notes that she had formed stools while on steroids and during . Last OV with Giana Arceo PA-C 09/15/2023: Assessment/Plan (K51.011) Ulcerative pancolitis with rectal bleeding (HCC) (primary encounter diagnosis) (Z11.59) Encounter for screening for other viral diseases 1. Ulcerative pancolitis with rectal bleeding (HCC) - COMPLETE BLOOD COUNT; Future - COMPREHENSIVE METABOLIC PANEL; Future - SEDIMENTATION RATE, WESTERGREN; Future - C-REACTIVE PROTEIN; Future - VITAMIN D 25 HYDROXY; Future - VITAMIN B12; Future - CALPROTECTIN,FECAL - C. DIFFICILE PCR - ENTERIC BACTERIAL PANEL BY PCR - CRYPTOSPORIDIUM AND GIARDIA ANTIGENS BY EIA - PANC ELASTASE, FECAL - Will check basic labs, Celiac serology, stool studies to r/o ID - If stool negative for ID, will start on pred taper - Pt due for repeat colonoscopy. Reports she does not wish to start Humira again and would prefer infusion alternative such as Entyvio. Informed we will discuss maintenance med options after updated testing complete - Avoid antidiarrheals, continue oral hydration 2. Encounter for screening for other viral diseases - BLOOD TB SCREEN, INCUBATED; Future - HEPATITIS B SURFACE ANTIGEN; Future Current Outpatient Medications Medication Sig sertraline (ZOLOFT) 100 mg tablet Take 1 tablet by mouth once daily. levonorgestrel (MIRENA) 21 mcg/24 hours (8 yrs) 52 mg IUD 1 Each by INTRAUTERINE route as directed. No current facility-administered medications for this visit. ALLERGIES No Known Allergies Social History Tobacco Use Smoking status: Never Smokeless tobacco: Never Vaping Use Vaping status: Never Used Substance Use Topics Alcohol use: Not Currently Comment: occasional Drug use: No PAST MEDICAL HISTORY Diagnosis Date Anxiety and depression Childhood overweight, BMI 85-94.9 percentile 08/2015 Iron deficiency anemia Iron deficiency anemia due to chronic blood loss 02/09/2021 Menarche 01/2013 PMH - PAST MEDICAL HISTORY OF 10/15/2006 normal color vision depression Ulcerative colitis (HCC) elevated liver enzymes PAST SURGICAL HISTORY Procedure Laterality Date CAPSULE ENDOSCOPY SMALL BOWEL 01/25/2021 COLONOSCOPY GEN ANES 12/08/2020 EGD 12/08/2020 UNLISTED DIAGNOSTIC GASTROENTEROLOGY PROCEDURE 01/25/2021 FAMILY HISTORY Problem Relation Age of Onset Hypertension Mother other (gluten intolerance) Mother Skin Cancer Mother Hypertension Father Heart Sister murmur as an Heart Maternal Grandmother Diabetes Maternal Grandmother Hypertension Maternal Grandfather Heart Maternal Grandfather 60s other (Bladder cancer) Maternal Grandfather smoker Heart Paternal Grandmother Hypertension Paternal Grandmother Hypertension Paternal Grandfather Heart Paternal Grandfather age 52 PA; adn MGGF REVIEW OF SYSTEMS Review of Systems Constitutional: Positive for activity change, appetite change and fatigue. Gastrointestinal: Positive for abdominal pain, anal bleeding, diarrhea and nausea. All other systems reviewed and are negative. PHYSICAL EXAM BP 118/82 Pulse 111 Wt 142 lb (64.4kg) LMP 05/13/2023 Physical Exam Constitutional: Appearance: Normal appearance. She is normal weight. HENT: Head: Normocephalic and atraumatic. Eyes: General: No scleral icterus. Extraocular Movements: Extraocular movements intact. Conjunctiva/sclera: Conjunctivae normal. Pupils: Pupils are equal, round, and reactive to light. Cardiovascular: Rate and Rhythm: Normal rate and regular rhythm. Pulses: Normal pulses. Heart sounds: Normal heart sounds. Pulmonary: Effort: Pulmonary effort is normal. Breath sounds: Normal breath sounds. Abdominal: General: Abdomen is flat. Bowel sounds are normal. Palpations: Abdomen is soft. Tenderness: There is no abdominal tenderness. Musculoskeletal: General: Normal range of motion. Cervical back: Normal range of motion and neck supple. Skin: General: Skin is warm and dry. Coloration: Skin is not jaundiced. Neurological: General: No focal deficit present. Mental Status: She is alert and oriented to person, place, and time. Psychiatric: Mood and Affect: Mood normal. Behavior: Behavior normal. Thought Content: (more content not included)...[facility] 03-31-2024 History of Present illness Narrative* Sonja Sarmiento PA-C - 03/31/2024 10:08 AM EST CHIEF COMPLAINT: Patient presents with: Recheck: Ulcerative Pancolitis- pt states she is feeling worse than she was her ESTELA HPI Radha Barnes is a 23 year old female here today for Recheck (Ulcerative Pancolitis- pt states she is feeling worse than she was her ESTELA ) Patient tells me that she has been dealing with significant flare symptoms of abdominal pain and diarrhea in the last two weeks. Pain is getting intense. Seeing blood for the majority of her bowel movements. Moving bowels 2-4x per day. Notes that she had formed stools while on steroids and during . Last OV with Giana Arceo PA-C 09/15/2023: Assessment/Plan (K51.011) Ulcerative pancolitis with rectal bleeding (HCC) (primary encounter diagnosis) (Z11.59) Encounter for screening for other viral diseases 1. Ulcerative pancolitis with rectal bleeding (HCC) - COMPLETE BLOOD COUNT; Future - COMPREHENSIVE METABOLIC PANEL; Future - SEDIMENTATION RATE, WESTERGREN; Future - C-REACTIVE PROTEIN; Future - VITAMIN D 25 HYDROXY; Future - VITAMIN B12; Future - CALPROTECTIN,FECAL - C. DIFFICILE PCR - ENTERIC BACTERIAL PANEL BY PCR - CRYPTOSPORIDIUM AND GIARDIA ANTIGENS BY EIA - PANC ELASTASE, FECAL - Will check basic labs, Celiac serology, stool studies to r/o ID - If stool negative for ID, will start on pred taper - Pt due for repeat colonoscopy. Reports she does not wish to start Humira again and would prefer infusion alternative such as Entyvio. Informed we will discuss maintenance med options after updated testing complete - Avoid antidiarrheals, continue oral hydration 2. Encounter for screening for other viral diseases - BLOOD TB SCREEN, INCUBATED; Future - HEPATITIS B SURFACE ANTIGEN; Future Current Outpatient Medications Medication Sig sertraline (ZOLOFT) 100 mg tablet Take 1 tablet by mouth once daily. levonorgestrel (MIRENA) 21 mcg/24 hours (8 yrs) 52 mg IUD 1 Each by INTRAUTERINE route as directed. No current facility-administered medications for this visit. ALLERGIES No Known Allergies Social History Tobacco Use Smoking status: Never Smokeless tobacco: Never Vaping Use Vaping status: Never Used Substance Use Topics Alcohol use: Not Currently Comment: occasional Drug use: No PAST MEDICAL HISTORY Diagnosis Date Anxiety and depression Childhood overweight, BMI 85-94.9 percentile 08/2015 Iron deficiency anemia Iron deficiency anemia due to chronic blood loss 02/09/2021 Menarche 01/2013 PMH - PAST MEDICAL HISTORY OF 10/15/2006 normal color vision depression Ulcerative colitis (HCC) elevated liver enzymes PAST SURGICAL HISTORY Procedure Laterality Date CAPSULE ENDOSCOPY SMALL BOWEL 01/25/2021 COLONOSCOPY GEN ANES 12/08/2020 EGD 12/08/2020 UNLISTED DIAGNOSTIC GASTROENTEROLOGY PROCEDURE 01/25/2021 FAMILY HISTORY Problem Relation Age of Onset Hypertension Mother other (gluten intolerance) Mother Skin Cancer Mother Hypertension Father Heart Sister murmur as an infant Heart Maternal Grandmother Diabetes Maternal Grandmother Hypertension Maternal Grandfather Heart Maternal Grandfather 60s other (Bladder cancer) Maternal Grandfather smoker Heart Paternal Grandmother Hypertension Paternal Grandmother Hypertension Paternal Grandfather Heart Paternal Grandfather age 52 [place]; adn MGGF REVIEW OF SYSTEMS Review of Systems Constitutional: Positive for activity change, appetite change and fatigue. Gastrointestinal: Positive for abdominal pain, anal bleeding, diarrhea and nausea. All other systems reviewed and are negative. PHYSICAL EXAM BP 118/82 Pulse 111 Wt 142 lb (64.4kg) LMP 05/13/2023 Physical Exam Constitutional: Appearance: Normal appearance. She is normal weight. HENT: Head: Normocephalic and atraumatic. Eyes: General: No scleral icterus. Extraocular Movements: Extraocular movements intact. Conjunctiva/sclera: Conjunctivae normal. Pupils: Pupils are equal, round, and reactive to light. Cardiovascular: Rate and Rhythm: Normal rate and regular rhythm. Pulses: Normal pulses. Heart sounds: Normal heart sounds. Pulmonary: Effort: Pulmonary effort is normal. Breath sounds: Normal breath sounds. Abdominal: General: Abdomen is flat. Bowel sounds are normal. Palpations: Abdomen is soft. Tenderness: There is no abdominal tenderness. Musculoskeletal: General: Normal range of motion. Cervical back: Normal range of motion and neck supple. Skin: General: Skin is warm and dry. Coloration: Skin is not jaundiced. Neurological: General: No focal deficit present. Mental Status: She is alert and oriented to person, place, and time. Psychiatric: Mood and Affect: Mood normal. Behavior: Behavior normal. Thought Content: Thought content normal. Judgment: Judgment normal. Assessment/Plan (K51.011) Ulcerative pancolitis with rectal bleeding (HCC) (primary encounter diagnosis) (R10.31, R10.32) Bilateral lower abdominal cramping 1. Ulcerative pancolitis with rectal bleeding (HCC) -- Patient with flare in her UC, worsening in the last two weeks. -- Will get updated C diff and calprotectin testing -- If C diff is negative, will given steroid taper plus plan to start Entyvio. Patient agreeable with plan. - CLOSTRIDIUM DIFFICILE TOXIN BY PCR - CALPROTECTIN,FECAL 2. Bilateral lower abdominal cramping -- Notes intense lower abdominal cramping/pain with her flare. Will give Bentyl 10 mg PRN TID -- Will get updated C diff and calprotectin testing -- If C diff is negative, will given steroid taper plus plan to start Entyvio. Patient agreeable with plan. - dicyclomine (BENTYL) 10 mg capsule; Take 1 capsule by mouth three times a day as needed. Dispense: 90 capsule; Refill: 1 Follow up in office 3 months/PRN. Recommended to please call office/go to ER if fever, chills, chest pain, SOB, diarrhea, nausea, emesis, worsening abdominal pain, dehydration occurs I spent a total of 20 minutes on the date of the service which included preparing to see the patient, [id number] patient care, completing clinical documentation, obtaining and/or reviewing separately obtained history, performing a medically appropriate examination, counseling and educating the pat ient/family/caregiver, and ordering medications, tests, or procedures. Sonja Sarmiento PA-C March 31, 2024 10:25 AM documented [facility] Note* Addendum Note - Giana Arceo PA-C - 12/23/2023 1:35 PM EDTAddended by: GIANA ARCEO on: 12/23/2023 01:35 PM Modules accepted: Orders [facility]10-15-[facility] Miscellaneous Notes* Addendum Note - Giana Arceo PA-C - 12/23/2023 1:35 PM EDTAddended by: GIANA ARCEO on: 12/23/2023 01:35 PM Modules accepted: Orders documented in this encounterG[facility]10-04-2024 NoteHNO ID: [id number] Author: DESIRE MOYER DO Service: ? Author Type: Physician Type: Progress Notes Filed: 12/15/2023 19:57 Note Text: [facility] [place] DO [address] [place] [address] Date of Evaluation: 12/12/2023 Patient Name: Radha Barnes : 2000 Chief Complaint: Patient presents with: Yearly Exam [employer]S FOR EMPLOYMENT' Nursing Intake: There are no exam notes on file for this visit. Subjective Ms. Barnes is a 23 year old female who presents with the following complaint(s): Patient presents for work physical. The history is provided by the patient. Anxiety Pertinent negatives include no weakness. This is a chronic problem. The current episode started more than 1 year ago. The problem is unchanged. Treatments tried: zoloft. The treatment provided mild relief. Review of Systems Constitutional: Negative for fatigue and unexpected weight change. HENT: Negative for nosebleeds. Eyes: Negative for redness and visual disturbance. Respiratory: Negative for apnea, cough and shortness of breath. Cardiovascular: Negative for chest pain, palpitations and leg swelling. Genitourinary: Negative for hematuria. Neurological: Negative for dizziness, weakness, light-headedness, numbness and headaches. Hematological: Does not bruise/bleed easily. Psychiatric/Behavioral: The patient is nervous/anxious. PAST MEDICAL HISTORY Diagnosis Date Anxiety and depression Childhood overweight, BMI 85-94.9 percentile 08/2015 Iron deficiency anemia Iron deficiency anemia due to chronic blood loss 02/09/2021 Menarche 01/2013 PMH - PAST MEDICAL HISTORY OF 10/15/2006 normal color vision depression Ulcerative colitis (HCC) elevated liver enzymes PAST SURGICAL HISTORY Procedure Laterality Date CAPSULE ENDOSCOPY SMALL BOWEL 01/25/2021 COLONOSCOPY GEN ANES 12/08/2020 EGD 12/08/2020 UNLISTED DIAGNOSTIC GASTROENTEROLOGY PROCEDURE 01/25/2021 FAMILY HISTORY Problem Relation Age of Onset Hypertension Mother other (gluten intolerance) Mother Skin Cancer Mother Hypertension Father Heart Sister murmur as an infant Heart Maternal Grandmother Diabetes Maternal Grandmother Hypertension Maternal Grandfather Heart Maternal Grandfather 60s other (Bladder cancer) Maternal Grandfather smoker Heart Paternal Grandmother Hypertension Paternal Grandmother Hypertension Paternal Grandfather Heart Paternal Grandfather age 52 [place]; adn MGGF Social History Tobacco Use Smoking status: Never Smokeless tobacco: Never Vaping Use Vaping status: Never Used Substance Use Topics Alcohol use: Not Currently Comment: occasional Drug use: No Current Outpatient Medications Medication Sig levonorgestrel (MIRENA) 21 mcg/24 hours (8 yrs) 52 mg IUD 1 Each by INTRAUTERINE route as directed. sertraline (ZOLOFT) 100 mg tablet Take 1 tablet by mouth once daily. No current facility-administered medications for this visit. I have confirmed and edited as necessary the past medical, family and social histories, HPI, and ROS obtained by others. Objective BP 90/62 Pulse 85 Ht 5' 1 (1.55m) Wt 162 lb (73.5kg) SpO2 97% LMP 05/13/2023 BMI 30.63 kg/(m2). Physical Exam Vitals and nursing note reviewed. Constitutional: General: She is not in acute distress. Appearance: Normal appearance. She is well-developed. She is not ill-appearing. HENT: Head: Normocephalic. Nose: Nose normal. Mouth/Throat: Pharynx: Uvula midline. Eyes: General: Lids are normal. Vision grossly intact. Gaze aligned appropriately. Extraocular Movements: Extraocular movements intact. Conjunctiva/sclera: Conjunctivae normal. Pupils: Pupils are equal, round, and reactive to light. Neck: Thyroid: No thyroid mass, thyromegaly or thyroid tenderness. Trachea: Trachea and phonation normal. Cardiovascular: Rate and Rhythm: Normal rate and regular rhythm. Pulses: Normal pulses. Heart sounds: Normal heart sounds. Musculoskeletal: General: Normal range of motion. Right shoulder: Normal. Left shoulder: Normal. Cervical back: Normal, full passive range of motion without pain and neck supple. No spinous process tenderness. Thoracic back: Normal. Lumbar back: Normal. Right knee: Normal. Left knee: Normal. Right lower leg: No edema. Left lower leg: No edema. Skin: General: Skin is warm and dry. Neurological: General: No focal deficit present. Mental Status: She is alert and oriented to person, place, and time. Mental status is at baseline. Sensory: Sensation is intact. Motor: Motor function is intact. Psychiatric: Attention and Perception: Attention and perception normal. Mood and Affect: Mood normal. Speech: Speech normal. Behavior: Behavior normal. Thought Content: Thought content normal. Ju (more content not included)...[facility]10-04-2024 History of Present illness Narrative* Desire Moyer DO - 12/12/2023 3:49 PM EDT Images from the original note were not included. [facility] [place] Desire Moyer DO [address] [place] [address] Date of Evaluation: 12/12/2023 Patient Name: Radha Barnes : 2000 Chief Complaint: Patient presents with: Yearly Exam [employer]S FOR EMPLOYMENT' Nursing Intake: There are no exam notes on file for this visit. Subjective Ms. Barnes is a 23 year old female who presents with the following complaint(s): Patient presents for work physical. The history is provided by the patient. Anxiety Pertinent negatives include no weakness. This is a chronic problem. The current episode started more than 1 year ago. The problem is unchanged. Treatments tried: zoloft. The treatment provided mild relief. Review of Systems Constitutional: Negative for fatigue and unexpected weight change. HENT: Negative for nosebleeds. Eyes: Negative for redness and visual disturbance. Respiratory: Negative for apnea, cough and shortness of breath. Cardiovascular: Negative for chest pain, palpitations and leg swelling. Genitourinary: Negative for hematuria. Neurological: Negative for dizziness, weakness, light-headedness, numbness and headaches. Hematological: Does not bruise/bleed easily. Psychiatric/Behavioral: The patient is nervous/anxious. PAST MEDICAL HISTORY Diagnosis Date Anxiety and depression Childhood overweight, BMI 85-94.9 percentile 08/2015 Iron deficiency anemia Iron deficiency anemia due to chronic blood loss 02/09/2021 Menarche 01/2013 PMH - PAST MEDICAL HISTORY OF 10/15/2006 normal color vision depression Ulcerative colitis (HCC) elevated liver enzymes PAST SURGICAL HISTORY Procedure Laterality Date CAPSULE ENDOSCOPY SMALL BOWEL 01/25/2021 COLONOSCOPY GEN ANES 12/08/2020 EGD 12/08/2020 UNLISTED DIAGNOSTIC GASTROENTEROLOGY PROCEDURE 01/25/2021 FAMILY HISTORY Problem Relation Age of Onset Hypertension Mother other (gluten intolerance) Mother Skin Cancer Mother Hypertension Father Heart Sister murmur as an Heart Maternal Grandmother Diabetes Maternal Grandmother Hypertension Maternal Grandfather Heart Maternal Grandfather 60s other (Bladder cancer) Maternal Grandfather smoker Heart Paternal Grandmother Hypertension Paternal Grandmother Hypertension Paternal Grandfather Heart Paternal Grandfather age 52 [place]; adn MGGF Social History Tobacco Use Smoking status: Never Smokeless tobacco: Never Vaping Use Vaping status: Never Used Substance Use Topics Alcohol use: Not Currently Comment: occasional Drug use: No Current Outpatient Medications Medication Sig levonorgestrel (MIRENA) 21 mcg/24 hours (8 yrs) 52 mg IUD 1 Each by INTRAUTERINE route as directed. sertraline (ZOLOFT) 100 mg tablet Take 1 tablet by mouth once daily. No current facility-administered medications for this visit. I have confirmed and edited as necessary the past medical, family and social histories, HPI, and ROS obtained by others. Objective BP 90/62 Pulse 85 Ht 5' 1 (1.55m) Wt 162 lb (73.5kg) SpO2 97% LMP 05/13/2023 BMI 30.63kg/(m^2). Physical Exam Vitals and nursing note reviewed. Constitutional: General: She is not in acute distress. Appearance: Normal appearance. She is well-developed. She is not ill-appearing. HENT: Head: Normocephalic. Nose: Nose normal. Mouth/Throat: Pharynx: Uvula midline. Eyes: General: Lids are normal. Vision grossly intact. Gaze aligned appropriately. Extraocular Movements: Extraocular movements intact. Conjunctiva/sclera: Conjunctivae normal. Pupils: Pupils are equal, round, and reactive to light. Neck: Thyroid: No thyroid mass, thyromegaly or thyroid tenderness. Trachea: Trachea and phonation normal. Cardiovascular: Rate and Rhythm: Normal rate and regular rhythm. Pulses: Normal pulses. Heart sounds: Normal heart sounds. Musculoskeletal: General: Normal range of motion. Right shoulder: Normal. Left shoulder: Normal. Cervical back: Normal, full passive range of motion without pain and neck supple. No spinous process tenderness. Thoracic back: Normal. Lumbar back: Normal. Right knee: Normal. Left knee: Normal. Right lower leg: No edema. Left lower leg: No edema. Skin: General: Skin is warm and dry. Neurological: General: No focal deficit present. Mental Status: She is alert and oriented to person, place, and time. Mental status is at baseline. Sensory: Sensation is intact. Motor: Motor function is intact. Psychiatric: Attention and Perception: Attention and perception normal. Mood and Affect: Mood normal. Speech: Speech normal. Behavior: Behavior normal. Thought Content: Thought content normal. Judgment: Judgment normal. Data Reviewed: No new labs ASSESSMENT/PLAN: 1. Need for history and physical examination for employment - ICD9: V70.5, ICD10: Z02.1 (primary diagnosis) 2. Class 1 obesity with body mass index (BMI) of 30.0 to 30.9 in adult, unspecified obesity type, unspecified whether serious comorbidity present - ICD9: 278.00, V85.30, ICD10: E66.811, Z68.30 3. Anxiety with depression - ICD9: 300.4, ICD10: F41.8 - improved slightly with medication but anxiety not controlled yet. - Increase Sertraline. - SERTRALINE 100 MG TABLET Return if symptoms worsen or fail to improve. Desire Moyer DO Attestation: Scribe Attestation: The patient is seen and examined by Dr. Moyer and the following reflects his/her service. Scribed by Ariela Monsalve December 12, 2023 3:49 PMProvider Attestation: I, Desire Moyer DO personally performed the services described in this documentation. All medical record entries made by the scribe were at my direction and in my presence. I have reviewed the chart and discharge instructions (if applicable) and agree that the record reflects my personal per formance and is accurate and complete. Electronically Signed: Desire Moyer DO, December 12, 2023 3:52 PM documented in this encounterG[facility]08-[facility]-2024 NoteHNO ID: [id number] Author: DESIRE MOYER DO Service: ? Author Type: Physician Type: Progress Notes Filed: 10/21/2023 20:58 Note Text: [facility] [place] Desire Moyer DO [address] [place] [address] Date of Evaluation: 10/17/2023 Patient Name: Radha Barnes : 2000 Chief Complaint: Patient presents with: Establish Care Results: Scan completed by GI Nursing Intake: There are no exam notes on file for this visit. Subjective Ms. Barnes is a 23 year old female who presents to establish care. States she was seeing Gastroenterology and they did blood work and an ultrasound and told patient to establish with pcp. Patient states she feels good. States she has a 7 month old at home. Patient denies gall bladder issues. Patient denies any joint/ bone pain. HPI Review of Systems Constitutional: Negative for fatigue and unexpected weight change. HENT: Negative for nosebleeds. Eyes: Negative for redness and visual disturbance. Respiratory: Negative for apnea, cough and shortness of breath. Cardiovascular: Negative for chest pain, palpitations and leg swelling. Genitourinary: Negative for hematuria. Neurological: Negative for dizziness, weakness, light-headedness, numbness and headaches. Hematological: Does not bruise/bleed easily. Psychiatric/Behavioral: The patient is not nervous/anxious. PAST MEDICAL HISTORY No date: Anxiety and depression 08/2015: Childhood overweight, BMI 85-94.9 percentile No date: Iron deficiency anemia 02/09/2021: Iron deficiency anemia due to chronic blood loss 01/2013: Menarche 10/15/2006: PMH - PAST MEDICAL HISTORY OF Comment: normal color vision No date: depression No date: Ulcerative colitis (HCC) Comment: elevated liver enzymes PAST SURGICAL HISTORY 01/25/2021: CAPSULE ENDOSCOPY SMALL BOWEL 12/08/2020: COLONOSCOPY GEN ANES 12/08/2020: EGD 01/25/2021: UNLISTED DIAGNOSTIC GASTROENTEROLOGY PROCEDURE FAMILY HISTORY Problem Relation Age of Onset Hypertension Mother other (gluten intolerance) Mother Skin Cancer Mother Hypertension Father Heart Sister murmur as an Heart Maternal Grandmother Diabetes Maternal Grandmother Hypertension Maternal Grandfather Heart Maternal Grandfather 60s other (Bladder cancer) Maternal Grandfather smoker Heart Paternal Grandmother Hypertension Paternal Grandmother Hypertension Paternal Grandfather Heart Paternal Grandfather age 52 [place]; adn MGGF Social History Tobacco Use Smoking status: Never Smokeless tobacco: Never Vaping Use Vaping Use: Never used Substance Use Topics Alcohol use: Not Currently Comment: occasional Drug use: No Current Outpatient Medications Medication Sig levonorgestrel (MIRENA) 21 mcg/24 hours (8 yrs) 52 mg IUD 1 Each by INTRAUTERINE route as directed. sertraline (ZOLOFT) 50 mg tablet Take 1 tablet by mouth once daily. No current facility-administered medications for this visit. I have confirmed and edited as necessary the past medical, family and social histories, HPI, and ROS obtained by others. Objective BP 120/70 Pulse 88 Ht 5' 1 (1.55m) Wt 157 lb (71.2kg) SpO2 97% LMP 05/13/2023 BMI 29.68 kg/(m2). Physical Exam Vitals and nursing note reviewed. Exam conducted with a steel detailer present. Constitutional: Appearance: Normal appearance. She is normal weight. HENT: Right Ear: Tympanic membrane, ear canal and external ear normal. There is no impacted cerumen. Left Ear: Tympanic membrane, ear canal and external ear normal. There is no impacted cerumen. Eyes: Extraocular Movements: Extraocular movements intact. Conjunctiva/sclera: Conjunctivae normal. Pupils: Pupils are equal, round, and reactive to light. Cardiovascular: Rate and Rhythm: Normal rate and regular rhythm. Pulses: Normal pulses. Heart sounds: Normal heart sounds. Skin: General: Skin is warm and dry. Neurological: General: No focal deficit present. Mental Status: She is alert and oriented to person, place, and time. Mental status is at baseline. Psychiatric: Mood and Affect: Mood normal. Behavior: Behavior normal. Thought Content: Thought content normal. Judgment: Judgment normal. Data Reviewed: Most recent labs and imaging results. ASSESSMENT/PLAN: 1. Elevated alkaline phosphatase level - ICD9: 790.5, ICD10: R74.8 (primary diagnosis) - Repeat blood work - Will continue to follow elevated Alkaline Phosphatase - Discussed with patients reasons for elevated Alkaline Phosphatase - Patient is asymptomatic at this time - Will call patient with blood work results - COMPLETE BLOOD COUNT AND DIFFERENTIAL - COMPREHENSIVE METABOLIC PANEL - URINALYSIS, WITH MICROSCOPIC 2. Ulcerative colitis with other complication, unspecified location (HCC) - ICD9: 556.9, ICD10: K51.91 (more content not included)...[facility]08-09-[facility] History of Present illness Narrative* Desire Moyer DO - 10/17/2023 2:37 PM EDT Images from the original note were not included. [facility] Desire Moyer DO [address] [place] [address] Date of Evaluation: 10/17/2023 Patient Name: Radha Barnes : 2000 Chief Complaint: Patient presents with: Establish Care Results: Scan completed by GI Nursing Intake: There are no exam notes on file for this visit. Subjective Ms. Barnes is a 23 year old female who presents to establish care. States she was seeing Gastroenterology and they did blood work and an ultrasound and told patient to establish with pcp. Patient states she feels good. States she has a 7 month old at home. Patient denies gall bladder issues. Patientdenies any joint/ bone pain. HPI Review of Systems Constitutional: Negative for fatigue and unexpected weight change. HENT: Negative for nosebleeds. Eyes: Negative for redness and visual disturbance. Respiratory: Negative for apnea, cough and shortness of breath. Cardiovascular: Negative for chest pain, palpitations and leg swelling. Genitourinary: Negative for hematuria. Neurological: Negative for dizziness, weakness, light-headedness, numbness and headaches. Hematological: Does not bruise/bleed easily. Psychiatric/Behavioral: The patient is not nervous/anxious. PAST MEDICAL HISTORY No date: Anxiety and depression 08/2015: Childhood overweight, BMI 85-94.9 percentile No date: Iron deficiency anemia 02/09/2021: Iron deficiency anemia due to chronic blood loss 01/2013: Menarche 10/15/2006: PMH - PAST MEDICAL HISTORY OF Comment: normal color vision No date: depression No date: Ulcerative colitis (HCC) Comment: elevated liver enzymes PAST SURGICAL HISTORY 01/25/2021: CAPSULE ENDOSCOPY SMALL BOWEL 12/08/2020: COLONOSCOPY GEN ANES 12/08/2020: EGD 01/25/2021: UNLISTED DIAGNOSTIC GASTROENTEROLOGY PROCEDURE FAMILY HISTORY Problem Relation Age of Onset Hypertension Mother other (gluten intolerance) Mother Skin Cancer Mother Hypertension Father Heart Sister murmur as an infant Heart Maternal Grandmother Diabetes Maternal Grandmother Hypertension Maternal Grandfather Heart Maternal Grandfather 60s other (Bladder cancer) Maternal Grandfather smoker Heart Paternal Grandmother Hypertension Paternal Grandmother Hypertension Paternal Grandfather Heart Paternal Grandfather age 52 [place]; adn MGGF Social History Tobacco Use Smoking status: Never Smokeless tobacco: Never Vaping Use Vaping Use: Never used Substance Use Topics Alcohol use: Not Currently Comment: occasional Drug use: No Current Outpatient Medications Medication Sig levonorgestrel (MIRENA) 21 mcg/24 hours (8 yrs) 52 mg IUD 1 Each by INTRAUTERINE route as directed. sertraline (ZOLOFT) 50 mg tablet Take 1 tablet by mouth once daily. No current facility-administered medications for this visit. I have confirmed and edited as necessary the past medical, family and social histories, HPI, and ROS obtained by others. Objective BP 120/70 Pulse 88 Ht 5' 1 (1.55m) Wt 157 lb (71.2kg) SpO2 97% LMP 05/13/2023 BMI 29.68 kg/(m^2). Physical Exam Vitals and nursing note reviewed. Exam conducted with a steel detailer present. Constitutional: Appearance: Normal appearance. She is normal weight. HENT: Right Ear: Tympanic membrane, ear canal and external ear normal. There is no impacted cerumen. Left Ear: Tympanic membrane, ear canal and external ear normal. There is no impacted cerumen. Eyes: Extraocular Movements: Extraocular movements intact. Conjunctiva/sclera: Conjunctivae normal. Pupils: Pupils are equal, round, and reactive to light. Cardiovascular: Rate and Rhythm: Normal rate and regular rhythm. Pulses: Normal pulses. Heart sounds: Normal heart sounds. Skin: General: Skin is warm and dry. Neurological: General: No focal deficit present. Mental Status: She is alert and oriented to person, place, and time. Mental status is at baseline. Psychiatric: Mood and Affect: Mood normal. Behavior: Behavior normal. Thought Content: Thought content normal. Judgment: Judgment normal. Data Reviewed: Most recent labs and imaging results. ASSESSMENT/PLAN: 1. Elevated alkaline phosphatase level - ICD9: 790.5, ICD10: R74.8 (primary diagnosis) - Repeat blood work - Will continue to follow elevated Alkaline Phosphatase - Discussed with patients reasons for elevated Alkaline Phosphatase - Patient is asymptomatic at this time - Will call patient with blood work results - COMPLETE BLOOD COUNT AND DIFFERENTIAL - COMPREHENSIVE METABOLIC PANEL - URINALYSIS, WITH MICROSCOPIC 2. Ulcerative colitis with other complication, unspecified location (HCC) - ICD9: 556.9, ICD10: K51.918 - Patient follows with gastroenterology - COMPLETE BLOOD COUNT AND DIFFERENTIAL - COMPREHENSIVE METABOLIC PANEL - URINALYSIS, WITH MICROSCOPIC 3. Screening for thyroid disorder - ICD9: V77.0, ICD10: Z13.29 - Obtain labs - THYROID STIMULATING HORMONE 4. Screening for lipid disorders - ICD9: V77.91, ICD10: Z13.220 - Obtain fasting labs - LIPID PANEL BASIC Return in about 6 months (around 04/18/2024). Desire Moyer DO Attestation: Scribe Attestation: The patient is seen and examined by Dr. Moyer and the following reflects his/her service. Scribed by Katina Hay LPN October 17, 2023 3:01 PMProvider Attestation: I, Desire Moyer DO personally performed the services described in this documentation. All medical record entries made by the scribe were at my direction and in my presence. I have reviewed the chart and discharge instructions (if applicable) and agree that the record reflects my personal per formance and is accurate and complete. Electronically Signed: Desire Moyer DO, October 20, 2023 8:27 AM documented in this encounterG[facility]07-26-[facility]24 History of Present illness Narrative* Cevallos, Albin, RT(R) - 10/03/2023 10:15 AM EDT Radiology Service Progress Note PATIENT NAME: Radha Barnes DATE OF SERVICE: October 03, 2023 TIME: 10:44 AM PATIENT IDENTITY VERIFICATION COMPLETED USING TWO (2) IDENTIFIERS: Name and Date of confirmedby patient verbally. FALL SCREENING: Has the patient had 2 falls in the last year or 1 fall with injury or currently using an Ambulatory Assistive Device (Walker, Cane, Wheelchair, Crutches, etc.)? No PATIENT GENDER DATA: Female. status: : No status: NO. PATIENT RELEVANT IMPLANT DATA REVIEWED: Not Applicable PATIENT PRESENTS WITH AN IMPLANTABLE OR ATTACHED MANAGER LICENSING: No RADIOLOGY DEPARTMENT: Ultrasound PERIPHERAL IV DATA: Not applicable SIGNED BY: RT Lesley(R) October 03, 2023 10:44 AM documented in this encounterGlenbeigh Hospital07-26-2024 NoteHNO ID: [id number] Author: ALBIN CEVALLOS RT(R) Service: Radiology Author Type: Technologist Type: Progress Notes Filed: 10/03/2023 10:44 Note Text: Radiology Service Progress Note PATIENT NAME: Radha Barnes DATE OF SERVICE: October 03, 2023 TIME: 10:44 AM PATIENT IDENTITY VERIFICATION COMPLETED USING TWO (2) IDENTIFIERS: Name and Date of confirmed by patient verbally. FALL SCREENING: Has the patient had 2 falls in the last year or 1 fall with injury or currently using an Ambulatory Assistive Device (Walker, Cane, Wheelchair, Crutches, etc.)? No PATIENT GENDER DATA: Female. status: : No status: NO. PATIENT RELEVANT IMPLANT DATA REVIEWED: Not Applicable PATIENT PRESENTS WITH AN IMPLANTABLE OR ATTACHED MANAGER LICENSING: No RADIOLOGY DEPARTMENT: Ultrasound PERIPHERAL IV DATA: Not applicable SIGNED BY: RT Lesley(R) October 03, 2023 10:44 [facility] Note* Addendum Note - Giana Arceo PA-C - 09/15/2023 3:26 PM EDTAddended by: GIANA ARCEO on: 09/15/2023 03:26 PM Modules accepted: Orders [facility]07-08-[facility] Miscellaneous Notes* Addendum Note - Giana Arceo PA-C - 09/15/2023 3:26 PM EDTAddended by: GIANA ARCEO on: 09/15/2023 03:26 PM Modules accepted: Orders documented in this encounterGlenbeigh Hospital07-08-2024 History of Present illness Narrative* Giana Arceo PA-C - 09/15/2023 1:05 PM EDT CHIEF COMPLAINT: Patient presents with: Ulcerative pancolitis: Blood in the stool also loose HPI Radha Barnes is a 23 year old female here today for Ulcerative pancolitis (Blood in the stool also loose). Dx with ulcerative pancolitis 12/08/2020. Was having minimal improvement in inflammatory levels with mesalamine, so advised switch to Humira. Started injections 10/12/2021 and clinically felt well. Advised to obtain updated colonoscopy last OV 06/2022 but pt could not obtain as she found out she was . Has been off of Humira since 07/2022 (pt stopped med on her own after discovering ). Had vaginal delivery 03/2023 and includes she had no issues with GI upset/diarrhea prior to or following delivery Includes around 05/2023 she started having returning loose stools, daily bloody stools. Last formedstool was 02/2023 Denies unintentional weight loss, abd pain, NSAIDs. OV 09/2022 Radha Barnes is a 22 year old female here today for Ulcerative pancolitis (Colon not done). Dx with ulcerative pancolitis 12/08/2020. Was having minimal improvement in inflammatory levels with mesalamine, so advised switch to Humira. Started injections 10/12/2021 and clinically felt well. Recentcal 05/2022 significantly elevated, prescribed course of prednisone, C. Diff neg. Advised to obtainupdated colonoscopy last OV 06/2022 but pt could not obtain as she found out she was . Has been off of Humira since 07/2022 (pt stopped men on her own after discovering ). Bms are currently 1-2x per day, formed consistency, no bleeding since she found out she was . Current Outpatient Medications Medication Sig levonorgestrel (MIRENA) 21 mcg/24 hours (8 yrs) 52 mg IUD 1 Each by INTRAUTERINE route as directed. sertraline (ZOLOFT) 50 mg tablet Take 1 tablet by mouth once daily. prental multivitamin 27 mg iron- 800 mcg tablet Take 1 tablet by mouth once daily. (Patient not taking: Reported on 04/29/2023) No current facility-administered medications for this visit. [...] to chronic blood loss 02/09/2021 Menarche 01/2013 [facility] - PAST MEDICAL HISTORY OF 10/15/2006 normal [...] Paternal Grandfather Heart Paternal Grandfather age 52 PA; adn MGGF REVIEW OF SYSTEMS Review of Systems Gastrointestinal: Positive for diarrhea. All other systems reviewed and are negative. PHYSICAL EXAM BP 112/72 Pulse 71 Ht 154.9 cm (5' 1) Wt 65.3 kg (144 lb) LMP 05/13/2023 (Exact Date) BMI 27.21 kg/m Physical Exam Constitutional: General: She is [...] Ulcerative pancolitis with rectal bleeding (HCC) - COMPLETE BLOOD COUNT; Future - COMPREHENSIVE METABOLIC PANEL; Future - SEDIMENTATION RATE, WESTERGREN; Future - C-REACTIVE PROTEIN; Future - VITAMIN D 25 HYDROXY; Future - VITAMIN B12; Future - CALPROTECTIN,FECAL - C. DIFFICILE PCR - ENTERIC BACTERIAL PANEL BY PCR - CRYPTOSPORIDIUM AND GIARDIA ANTIGENS BY EIA - PANC ELASTASE, FECAL - Will check basic labs, Celiac serology, stool studies to r/o ID - If stool negative for ID, will start on pred taper - Pt due for repeat colonoscopy. Reports she does not wish to start Humira again and would prefer infusion alternative such as Entyvio. Informed we will discuss maintenance med options after updated testing complete - Avoid antidiarrheals, continue oral hydration 2. Encounter for screening for other viral diseases - BLOOD TB SCREEN, INCUBATED; Future - HEPATITIS B SURFACE ANTIGEN; Future I spent a total of 20 minutes on the date of the service which included preparing to see the patient, [id number] patient care, completing clinical documentation, obtaining and/or reviewing separately obtained history, performing a medically appropriate examination, counseling and educating the pat ient/family/caregiver, ordering medications, tests, or procedures, communicating with other HCPs (not separately reported), independently interpreting results (not separately reported), communicatingresults to the patient/family/caregiver, and care coordination (not separately reported). Giana Arceo PA-C September 15, 2023 1:19 PM documented in this encounterGlenbeigh Hospital07-02-2024 Telephone encounter Note * Telephone Encounter - Dora Tamayo MD - 09/09/2023 11:53 AM EDT Order placed on 08/21 Dora Tamayo MD [facility]07-[facility] Miscellaneous Notes* Telephone Encounter - Dora Tamayo MD - 09/09/2023 11:53 AM EDT Order placed on 08/21 Dora Tamayo MD * Telephone Encounter - Charlotte James RN - 09/08/2023 2:56 PM EDT Patient called. Wants IUD removed and to start on OCP. Order pending. Will need to link it to her 09/18 appointment. Charlotte James, NOELLE documented in this encounterGlenbe[facility] Hospital07-01-2024 Telephone encounter Note * Telephone Encounter - Charlotte James RN - 09/08/2023 2:56 PM EDT Patient called. Wants IUD removed and to start on OCP. Order pending. Will need to link it to her 09/18 appointment. Charlotte James RN [facility]06-14-[facility] Telephone encounter Note* Telephone Encounter - Dora Tamayo MD - 08/22/2023 9:45 AM EDT That is fine. I would encourage her to give the IUD more time if possible. Dora Tamayo MD [facility]06-14-[facility] Miscellaneous Notes* Telephone Encounter - Dora Tamayo MD - 08/22/2023 9:45 AM EDT That is fine. I would encourage her to give the IUD more time if possible. Dora Tamayo MD documented in this encounterGlenbeigh Hospital04-15-2024 Miscellaneous Notes* Telephone Encounter - Judy Davis APRN.CNM - 06/23/2023 4:36 PM EDT Agree with recommendation. She may be spotting/bleeding from IUD insertion. Judy Davis APRN.CNM * Telephone Encounter - Cassie Ewing RN - 06/23/2023 1:52 PM EDT Patient delivered 03/28/23. Had Mirena IUD inserted 05/27/23. Cassie Ewing RN documented in this encounterGlenbeigh Hospital03-19-2024 Instructions* Patient Instructions* Albin Willis MA - 05/27/2023 2:52 PM EDT POST IUD INSTRUCTIONS You may have irregular bleeding during the first 3 months of use. You may have mild-severe cramping for the next 48 hours. You may use over the counter medication (Motrin, Tylenol) as needed. Your IUD must be removed or replaced based on the following table: IUD Type Removed or replaced within: Shari 3 years Kyleena 5 years Mirena 8 years Liletta 8 years Paragard 10 years Call the office for signs/symptoms of infection such as severe cramping, fever, or unusual bleeding. Check for string placement as instructed by your doctor. If you have any additional questions, please contact the office. documented in this encounterGlenbeigh Hospital03-19-2024 History of Present illness Narrative* Dora Tamayo MD - 05/27/2023 2:51 PM EDT Radha presents today for IUD insertion for contraception. Patient's last menstrual period was 05/13/2023 (exact date). GC/chlamydia: Not done: no risk factors and/or patient declines screening test: negative Side effects including irregular bleeding were discussed with the patient. The patient understands that it should be removed in 8 years or sooner if the patient desires a . IUD source: office provided IUD lot #: [id number] Exp date: 04/09/2025 UNIVERSAL PROTOCOL / SAFETY CHECKLIST Procedure to be Performed: Mirena IUD Insertion Sign In: A Moment of CARE was completed. Personnel directly involved with the procedure wore the appropriate PPE (Personal Protective Equipment). Patient/Surrogate Stated/Verified: PATIENT VERIFIED(optional for EMERGENT procedures): Patient name, Date of , Relevant allergies, and The intended procedure Time Out Communication: Intended patient and procedure match the source documents. Consent documented and matches the intended procedure. Implant(s) inserted: Correct implant(s) confirmed including size and side. and Expiration date(s) reviewed. Sign Out: SIGN OUT (optional for EMERGENT procedures): No specimen collected. All instruments, equipment, possible retained foreign bodies accounted for. Post-procedure follow-up management communicated and Plan of Care Visit completed when applicable. The cervix was prepped with betadine. The uterus sounded to 10 cm and the uterus is Midposition.. Using sterile technique, the Mirena IUD was inserted without difficulty and the string was cut to 3-4cm from the external os of the cervix. Patient tolerated procedure well. PLAN: Patient was advised to observe for signs and symptoms of infection including but not limited to fever, malodorous vaginal discharge and/or pain. The patient was told to check the string monthlyfor accurate placement. Bleeding expectations were reviewed. Follow up after next menses for string check. Dora Tamayo MD documented in this encounterGlenbeigh Hospital02-20-2024 History of Present illness Narrative* Dora Tamayo MD - 04/29/2023 4:08 PM EST Manager Scheduling offered: Patient declines. VISIT Radha Barnes is a 22 year old year old here for visit. Delivery Summary: 03/18/2023 ROS/ Recovery: Feeding: Bottle feeding problems: None Menses since delivery: none Menstrual pattern prior to : Regular periods Kyle since delivery: Not resumed Depression: denies symptoms of depression. OB Depression and Anxiety Screening- This Encounter (since 04/28/2023) Over the past 2 weeks have you felt down, depressed, or hopeless? Negative Over the past two weeks, have you felt little interest or pleasure in doing things? Negative Feeling nervous, anxious or on edge 0-Not at all Not being able to stop or control worrying 0-Not al all Anxiety Pre-Screening Total (If >/= 3 additional questions will be reviewed) 0 Emotional support: Yes Bowel symptoms: Negative for abdominal discomfort, blood in stools or black stools and change in bowel habits Abdomen: N/A Bladder symptoms: No dysuria, gross hematuria, urinary frequency, urinary urgency, or incontinence Other issues: None Last Pap: 2022 HPV: N/A PAST MEDICAL HISTORY Diagnosis Date Anxiety and [...] Paternal Grandfather Heart Paternal Grandfather age 52 PA; adn MGGF Social History Tobacco Use Smoking status: Never Smokeless tobacco: Never Vaping Use Vaping Use: Never used Substance Use Topics Alcohol use: Not Currently Comment: occasional Drug use: No PHYSICAL EXAMINATION: BP 100/64 Wt 138 lb (62.6kg) LMP 06/11/2022 GENERAL: pleasant, female in no apparent distress HEENT: Normocephalic, atraumatic, mucus membranes moist, and no lesions NECK: Supple, full range of motion, no adenopathy, and thyroid normal DERMATOLOGY: Normal, without lesions, non-icteric, and non-hirsute BREAST: soft, non-tender, symmetric, no dominant mass, normal nipple-areolar complex, no lymphadenopathy, and no nipple discharge CHEST: Normal inspiratory effort ABDOMEN: soft, non-tender, and no masses. INCISION: N/A PELVIC: external genitalia normal, normal Bartholin's glands, urethra, [place]'s glands, no vulvar lesions, no cervical lesions, good vaginal support, physiologic discharge present, normal appearing perineal body and perianal region BIMANUAL: uterus normal size, shape and consistency, no adnexal masses, and non-tender NEURO: alert and oriented x3,exam grossly non-focal EXTREMITIES: normal ASSESSMENT AND PLAN: 22 year old status post with normal course. Contraception plan: IUD - Mirena Follow up: Depression: continue zoloft as doing well RTC for annual exams and PRN RTC for insertion of IUD Dora Tamayo MD documented in this encounterGlenbeigh Hospital01-10-2024 Discharge summary Author Judy Davis [facility] March 19, 2023 8:25am Note Date/Time March 19, 2023 8 :22am [facility] Medical Records Department [address] [place] [address] Discharge Summary 03/19/23 0820 MR#: [id number] Acct: [id number] Name: RADHA BARNES Rep #:[id number] : 2000 22 From: Judy Davis CNM PCP: Dr. Britney Kay MD Status:ADM I N Location: [place] [address] Providers Date of Admission: 03/18/23 Primary Care Physician: Dr. Britney Kay MD Reason For Visit: VAGINAL DELIVERY Diagnosis Discharge Diagnosis (1) (spontaneous vaginal delivery): Status: Acute Code(s): O80 - Encounter for full-term uncomplicated delivery (2) Care and examination of lactating mother: Status: Acute Code(s): Z39.1 - Encounter for care and examination of lactating mother (3) Laceration, obstetrical, first degree: Status: Acute Code(s): O70.0 - First degree perineal laceration during delivery Medications at Discharge Home Medications ferrous sulfate 325 mg (65 mg iron) tablet 325 mg PO DAILY 10/25/22 vit 122-ferrous fumarate 27 mg iron-folic acid 800 mcg tablet (PrenatalMulti) 1 tab PO DAILY 10/25/22 Hospital Course Operations None Procedures None Summary of Care Provided Minutes Spent on Discharge: 15 Hospital Course: Patient had . Hospital course was uneventful. Physical Exam Narrative Patient seen at bedside. Feeling good. Denies any pain. Ambulating and voiding without difficulty. with some support. Denies any headache, visionchanges, dizziness, SOB, or CP. Desires discharge home after 24 hours. Const alert and no apparent distress General Appearance: cooperative and comfortable Exam Limitations: no limitations HEENT normocephalic Eyes General Eye: normal appearance of both eyes Neck full ROM General: normal visual inspection Chest Chest: symmetrical chest wall rise Resp normal respiratory effort and normal air movement Effort and Inspection: symmetric chest movement Auscultation: clear to auscultation bilaterally Cardio regular rate and regular rhythm GI normal to inspection, nondistended, normoactive bowel sounds Back/Spine normal ROM Extremity full ROM and no calf tenderness General Extremity: normal exam except as noted Skin no rashes or lesions noted Neuro CN's II-XII intact bilaterally Psych mental status grossly normal Weight / BMI Weight Weight: 166 lb 12.8 oz Body Mass Index (BMI) 31.5 ABG / Lab / Microbiology Data 03/18/23 05:10 Laboratory: Laboratory Results - last 24 hr 03/18/23 17:00: Screen NEGATIVE, Baby's Blood Type O POSITIVE, Baby's SAVANNAH NEGATIVE D/C Instructions Discharge Diet: No restrictions May resume sexual activity in: 6-8 weeks Weight Bearing Status: Weight bearing as tolerated Call your doctor if you observe: Fever of 101 or Higher, Inability to urinate, Using more than 1 pad per hour, Shortness of breath, Chest pain, Calf discomfortand Uncontrolled pain Please Follow Up With: Judy Davis CNM When: 2 weeks virtual visit/ 6 weeks in office Meaningful Use Info Meaningful Use Diagnoses (Choose all that apply): None applicable Discharge Plan Admission Admit Date/Time: 03/18/23 04:45 Primary Reason for Your Visit: Labor and Delivery Attending Provider: Dora Tamayo Primary Care Provider: Britney Kay Discharge Orders/Prescriptions Prescriptions: Continued Multi 27-800 mg-mcg tablet 1 tab PO DAILY ferrous sulfate 325 mg (65 mg iron) tablet 325 mg PO DAILY Patient Comments: TAKE 1 TABLET BY MOUTH EVERY DAY WITH BREAKFAST Rx Instructions: PT STATES SHE TAKES IT WHENEVER SHE FEELS LIGHTHEADED-USUALLY <1X/WEEK Discontinued ondansetron HCl 4 mg tablet Patient Comments: TAKE 1 TABLET BY MOUTH EVERY 8 HOURS NEEDED FOR NAUSEA AND VOMITING Referrals / Follow Up: Judy Davis CNM [Med Staff - [facility] Practice Prof] - Britney Kay MD [Primary Care Provider] - Disposition Disposition (needs filled in before D/C Order can be placed): Home, Self Care 03/19/23 0825 <Electronically signed by Judy Davis CNM> Cosigner Signature (if applicable): CC: SUSSY Davis; Dr. 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 Britney Kay MD Status:ADM I N Location: [id number] HPI - General General Date of Admission: 03/18/23 Date of Service: 03/18/23 HPI Narrative RADHA BARNES, is a 22 F who presents with ctxs. Maternal Data Information Final NAJMA: 03/18/23 Gestational age: 40 weeks PFSH PFSH Medical History (Updated 03/18/23 @ 13:[address] Dora Tamayo MD) Anxiety and depression Iron deficiency anemia Palpitations Shortness of breath Tachycardia Ulcerative colitis Home Medications ferrous sulfate 325 mg (65 mg iron) tablet 325 mg PO DAILY 10/25/22 [History Last Taken Unknown] vit 122-ferrous fumarate 27 mg iron-folic acid 800 mcg tablet (PrenatalMulti) 1 tab PO DAILY 10/25/22 [History Last Taken Unknown] ondansetron HCl 4 mg tablet mg 03/18/23 [History Last Taken Unknown] Allergy/AdvReac Type Severity Reaction Status Date / Time No Known Allergies Allergy Verified 03/18/23 03:08 Family History (Updated 10/25/22 @ 11:16 by Carol Ann Fountain) Mother Hypertension Gluten intolerance Father Hypertension Sister Heart murmur Grandmother Heart disease Diabetes Grandfather Hypertension Heart disease Cancer Grandmother Heart disease Hypertension Grandfather Myocardial infarction, Onset Age: 52 Surgical History History of colonoscopy History of esophagogastroduodenoscopy (EGD) Social History (Updated 10/25/22 @ 11:11 by Carol Ann Fountain) Smoking Status: Never smoker alcohol intake: never substance use type: does not use History Elective abortions Hx Para 0 Spontaneous abortions Hx # Term Pregnancies Ectopic pregnancies Hx # Pregnancies Multiple births # of living children NST FHR Rate Baby A Baseline: 130 Variability:: Moderate Accelerations:: 15 x 15 Decelerations:: Variable Uterine Activity:: Q3-4 min Vital Signs Vital Signs Vital Signs: 03/18/23 02:53 03/18/23 02:53 03/18/23 02:53 Temperature Temperature Source Pulse Rate 120 H Blood Pressure 129/83 H BP Systolic 129 BP Diastolic 83 Pulse Ox 94 03/18/23 02:53 03/18/23 02:53 03/18/23 02:58 Temperature Temperature Source Pulse Rate 120 H 122 H Blood Pressure BP Systolic BP Diastolic Pulse Ox 97 03/18/23 02:58 03/18/23 03:03 03/18/23 03:03 Temperature Temperature Source Pulse Rate 119 H Blood Pressure BP Systolic BP Diastolic Pulse Ox 98 97 03/18/23 03:08 03/18/23 03:08 03/18/23 03:13 Temperature Temperature Source Pulse Rate 116 H 116 H Blood Pressure BP Systolic BP Diastolic Pulse Ox 97 03/18/23 03:13 03/18/23 03:18 03/18/23 03:18 Temperature Temperature Source Pulse Rate 112 H Blood Pressure BP Systolic BP Diastolic Pulse Ox 98 97 03/18/23 03:23 03/18/23 03:23 03/18/23 03:28 Temperature Temperature Source Pulse Rate 109 H 113 H Blood Pressure BP Systolic BP Diastolic Pulse Ox 97 03/18/23 03:28 03/18/23 04:51 03/18/23 04:51 Temperature Temperature Source Pulse Rate 81 Blood Pressure 121/72 H BP Systolic 121 BP Diastolic 72 Pulse Ox 97 03/18/23 04:51 03/18/23 04:51 03/18/23 06:39 Temperature 97.4 F L Temperature Source Pulse Rate Blood Pressure BP Systolic BP Diastolic Pulse Ox 99 94 03/18/23 06:39 03/18/23 06:39 03/18/23 06:39 Temperature Temperature Source Temporal Pulse Rate 107 H Blood Pressure BP Systolic BP Diastolic Pulse Ox 98 03/18/23 06:43 03/18/23 06:43 03/18/23 06:39 Temperature 97.9 F Temperature Source Pulse Rate 116 H Blood Pressure 124/80 H BP Systolic 124 BP Diastolic 80 Pulse Ox 03/18/23 06:44 03/18/23 06:44 03/18/23 06:48 Temperature Temperature Source Pulse Rate 108 H Blood Pressure 123/74 H BP Systolic 123 BP Diastolic 74 Pulse Ox 96 03/18/23 06:48 03/18/23 06:48 03/18/23 06:50 Temperature Temperature Source Pulse Rate 109 H 92 Blood Pressure BP Systolic BP Diastolic Pulse Ox 94 03/18/23 06:50 03/18/23 06:53 03/18/23 06:53 Temperature Temperature Source Pulse Rate 86 Blood Pressure 94/52 L BP Systolic 94 BP Diastolic 52 Pulse Ox 97 03/18/23 06:54 03/18/23 06:54 03/18/23 06:55 Temperature Temperature Source Pulse Rate 94 113 H Blood Pressure 88/55 L BP Systolic 88 BP Diastolic 55 Pulse Ox 03/18/23 06:55 03/18/23 06:58 03/18/23 06:58 Temperature Temperature Source Pulse Rate 106 H Blood Pressure 121/73 H BP Systolic 121 BP Diastolic 73 Pulse Ox 97 03/18/23 06:59 03/18/23 06:59 03/18/23 07:00 Temperature Temperature Source Pulse Rate 82 82 Blood Pressure 130/71 H BP Systolic 130 BP Diastolic 71 Pulse Ox 03/18/23 07:00 03/18/23 07:03 03/18/23 07:03 Temperature Temperature Source Pulse Rate 72 Blood Pressure 126/68 H BP Systolic 126 BP Diastolic 68 Pulse Ox 98 03/18/23 07:05 03/18/23 07:05 03/18/23 07:08 Temperature Temperature Source Pulse Rate 80 Blood Pressure 122/71 H BP Systolic 122 BP Diastolic 71 Pulse Ox 98 03/18/23 07:08 03/18/23 07:10 03/18/23 07:10 Temperature Temperature Source Pulse Rate 85 84 Blood Pressure BP Systolic BP Diastolic Pulse Ox 98 03/18/23 07:13 03/18/23 07:13 03/18/23 07:15 Temperature Temperature Source Pulse Rate 81 86 Blood Pressure 126/72 H BP Systolic 126 BP Diastolic 72 Pulse Ox 03/18/23 07:15 03/18/23 07:18 03/18/23 07:18 Temperature Temperature Source Pulse Rate 100 Blood Pressure 129/81 H BP Systolic 129 BP Diastolic 81 Pulse Ox 98 03/18/23 07:20 03/18/23 07:20 03/18/23 07:23 Temperature Temperature Source Pulse Rate 76 Blood Pressure 125/81 H BP Systolic 125 BP Diastolic 81 Pulse Ox 95 03/18/23 07:23 03/18/23 07:25 03/18/23 07:25 Temperature Temperature Source Pulse Rate 78 75 Blood Pressure BP Systolic BP Diastolic Pulse Ox 98 03/18/23 07:28 03/18/23 07:28 03/18/23 07:30 Temperature Temperature Source Pulse Rate 83 82 Blood Pressure 116/74 BP Systolic 116 BP Diastolic 74 Pulse Ox 03/18/23 07:30 03/18/23 07:33 03/18/23 07:33 Temperature Temperature Source Pulse Rate 78 Blood Pressure 123/82 H BP Systolic 123 BP Diastolic 82 Pulse Ox 97 03/18/23 07:37 03/18/23 07:37 03/18/23 08:01 Temperature 97.3 F L Temperature Source Temporal Pulse Rate Blood Pressure 124/80 H BP Systolic 124 BP Diastolic 80 Pulse Ox 03/18/23 08:01 Temperature Temperature Source Pulse Rate 79 Blood Pressure BP Systolic BP Diastolic Pulse Ox Weight Weight: 166 lb 12.8 oz Body Mass Index (BMI) 31.5 Physical Exam Const alert, oriented x3 and no apparent distress Chest inspection of chest normal GI soft to palpation, non-tender and non-distended Inspection: gravid external exam normal Narrative: cvx - 4/80/-1, AROM clear fluid Labs Labs Labs: Blood Type O NEGATIVE Antibody Screen NEGATIVE Hct 35.1 % (37-47) L Hgb 11.5 g/dL (12.0-15.0) L Syphilis Total Ab Non-reactive Assessment & Plan (1) 40 weeks gestation of : COMMENT: @ 40 weeks in labor PLAN: Plan Admit to L&D AROM & IUPC placed Plan for pitocin augmentation GBS negative Pain - epidural EFW - less than 4500g, patient with adequate pelvis 03/18/23 1357 <Electronically signed by Dora Tamayo MD> Cosigner Signature (if applicable): CC: Dr. Britney Kay MD; Dr. Dora Tamayo MD~ Signed [facility] Work Phone: [phone]) 192-879901-09-2024 Procedure [facility] 02-21-2023 Miscellaneous Notes* Quick Notes - Judy Davis APRN.CNM - 02/21/2023 11:03 AM EST Radha Barnes is a 22 year old female who presents at 36w3d for a routine visit. Just completed growth US- EFW 72%, JARET 19. Good movement. Occasional headaches that resolve with Tylenol. Denies visual changes, chest pain, shortness of breath, vaginal bleeding, leakage of fluid, or dysuria. F eeling well, no complaints. Educated on cervical exams [...] 1 week or sooner if needed. Judy Davis APRN.CNM documented [facility] encounterG[facility]12-15-[facility]23 Instructions* Patient Instructions* Britany Min MA - 02/21/2023 10:22 AM EST SEQUENTIAL SCREENINGS [facility] offers sequential screenings for women who are interested in screenings for chromosomal abnormalities and certain defects during a . The sequential screen combinesultrasound and blood tests to determine the risk [...] this testing. It will require an appointment withour breed to wean production technician. This is not an ultrasound performed [...] the above symptoms, contact our office at [phone] and ask to speak with anurse. After hours, you can call doctors registry at [phone] OR call [facility] at [phone] ask to have the doctor communications professional paged. If you consider this an emergency, dial 0-2- or go to your nearest emergency department. NEED HELP? Are you dealing with a violent or abusive relationship? Are you a victim of rape or sexual assult? Call [facility] ([place]) 24 hour Crisis Hotline: 663.717.3093 or 720-070-0867. MANUAL Your Guide to a Healthy manual is now on-line. Visit [email or web address] to download your free copy documented in this encounterGlenbeigh Hospital12-01-2023 Miscellaneous Notes* Quick Notes - Em Sampson APRN.CNM - 02/07/2023 12:41 PM EST KELLI-S: Radha Barnes is a 22 year old female who presents at 34w3d with NAJMA: 03/18/2023, by Last Menstrual Period for a routine visit. 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 I have re-performed the HPI, Physical Examination, Assessment and Plan. Em Sampson APRN.CNM documented in this encounterGlenbeigh Hospital12-01-2023 Instructions* Patient Instructions* Elsa Pires Ma - 02/07/2023 11:14 AM EST SEQUENTIAL SCREENINGS [facility] offers sequential screenings for women who are interested in screenings for chromosomal abnormalities and certain defects during a . The sequential screen combinesultrasound and blood tests to determine the risk [...] this testing. It will require an appointment withour breed to wean production technician. This is not an ultrasound performed [...] the above symptoms, contact our office at [phone] and ask to speak with anurse. After hours, you can call doctors registry at [phone] OR call [facility] at [phone] ask to have the doctor communications professional paged. If you consider this an emergency, dial 3-6-8 or go to your nearest emergency department. NEED HELP? Are you dealing with a violent or abusive relationship? Are you a victim of rape or sexual assult? Call [facility] ([place]) 24 hour Crisis Hotline: 432.625.1916 or 114-537-6084. MANUAL Your Guide to a Healthy manual is now on-line. Visit [email or web address] to download your free copy documented in this encounterGlenbe[facility] Hospital11-17-2023 Instructions* Patient Instructions* Albin Willis Cma - 01/24/2023 1:36 PM EST SEQUENTIAL SCREENINGS [facility] offers sequential screenings for women who are interested in screenings for chromosomal abnormalities and certain defects during a . The sequential screen combinesultrasound and blood tests to determine the risk [...] this testing. It will require an appointment withour breed to wean production technician. This is not an ultrasound performed [...] the above symptoms, contact our office at [phone] and ask to speak with anurse. After hours, you can call doctors registry at [phone] OR call [facility] at [phone] ask to have the doctor communications professional paged. If you consider this an emergency, dial 9-1-1 or go to your nearest emergency department. NEED HELP? Are you dealing with a violent or abusive relationship? Are you a victim of rape or sexual assult? Call [facility] ([facility] 24 hour Crisis Hotline: 906.655.6556 or 369-808-3013. MANUAL Your Guide to a Healthy manual is now on-line. Visit [email or web address] to download your free copy documented in this encounterGlenbeigh Hospital11-17-2023 Miscellaneous Notes* Quick Notes - Judy Davis APRN.CNM - 01/24/2023 1:35 PM EST Radha Barnes is a 22 year old [...] 2 weeks or sooner if needed Judy Davis APRN.CNM documented in this encounterGlen[facility] Hospital11-13-2023 Miscellaneous Notes* Telephone Encounter - Cassie Ewing RN - 01/20/2023 12:30 PM EST Patient has h/o ulcerative colitis. Cassie Ewing RN * Telephone Encounter - Deepali Blanco MD - 01/20/2023 11:50 AM EST Agree with monitoring at this time. To be seen for worsening cramping or pain, severe pain, VB, LOF, urinary symptoms, change in bowel habits. Thanks * Telephone Encounter - Mulu Perry RN - 01/20/2023 10:57 AM EST Patient states in the last week she has had 1 to 2 episodes a day of cramping that lasts only 30 seconds. Yesterday patient states she had 4 to 5 episodes of cramping that lasted around 30 to 60 seconds. Patient states she feels the cramping in her lower abdomen when it occurs and describes as mildcramping. Denies any bleeding, leaking or decreased movement. Patient states she is staying well hydrated with water and denies any urinary symptoms. Discussed staying well hydrated and to call if cramping/contractions become more frequent and timeable. Patient has appointment this Friday for ultrasound and OB visit. Mulu Perry RN documented in this encounterGlenbeigh Hospital10-26-2023 Miscellaneous Notes* Telephone Encounter - Judy Davis APRN.CNM - 01/02/2023 4:03 PM EDT Patient originally wrote about the discomfort with BV? She will need seen in office when she is able to evaluate. Thank you. Judy Davis APRN.CNM * Telephone Encounter - Eulalia Nguyễn LPN - 01/02/2023 3:01 PM EDT I contacted pt and she was not able to take the appointment that I have open tomorrow. Pt reports no vaginal odor , yellow discharge, and irritation. Please advise Eulalia Nguyễn LPN * Telephone Encounter - Judy Davis APRN.CNM - 01/02/2023 1:59 PM EDT Please see if patient can be worked into schedule tomorrow to be seen. Thank you. Judy Davis APRN.CNM * Telephone Encounter - Eulalia Nguyễn LPN - 01/02/2023 9:48 AM EDT Please see pt's mychart message and advise in KJ absence. Eulalia Nguyễn LPN documented in this encounterGlenbeigh Hospital10-24-2023 Miscellaneous Notes* Telephone Encounter - Charlotte Zhu RN - 12/31/2022 12:30 PM EDT 3rd risk assessment form submitted 12/31/2022. Charlotte Zhu RN documented in this encounterGlenbeigh Hospital10-24-2023 Miscellaneous Notes* Telephone Encounter - Tania Martinez APRN.CNP - 12/31/2022 8:33 AM EDT documented in this encounterGlenbeigh Hospital10-23-2023 History of Past illness Narrative* Problem Noted Date Diagnosed Date Resolved Date Abnormal glucose complicating 12/30/2022 04/03/2023 Overview: Failed 1 hr GTT. Needs 3 hr GTT. SW Rh negative state in antepartum period 09/05/2022 04/29/2023 History of iron deficiency anemia 08/01/2022 04/03/2023 Patient request for diagnostic testing 08/01/2022 04/03/2023 Overview: 08/01/2022atient desires aneuploidy screening. Contact information for [employer] given to patient to check on insurance coverage. Patient considering genetic carrier screening testing. Contact information for for [employer] given to patient to check on foresight coverage.Chloe Hussein RN Childhood overweight, BMI 85-94.9 percentile 6 05/11/2021 documented as of this encounter (statuses as of 04/29/2023) [facility] History of Past illness Narrative* Problem Noted Date Diagnosed Date Resolved Date Abnormal glucose complicating 12/30/2022 04/03/2023 Overview: Failed 1 hr GTT. Needs 3 hr GTT. SW Rh negative state in antepartum period 09/05/2022 04/29/2023 History of iron deficiency anemia 08/01/2022 04/03/2023 Patient request for diagnostic testing 08/01/2022 04/03/2023 Overview: 3Patient desires aneuploidy screening. Contact information for [employer] given to patient to check on insurance coverage. Patient considering genetic carrier screening testing. Contact information for for [employer] given to patient to check on foresight coverage.Chloe Hussein RN Childhood overweight, BMI 85-94.9 percentile 6 05/11/2021 documented as of this encounter (statuses as of 05/27/2023) [facility] History of Past illness Narrative* Problem Noted Date Diagnosed Date Resolved Date Abnormal glucose complicating 12/30/2022 04/03/2023 Overview: Failed 1 hr GTT. Needs 3 hr GTT. SW Rh negative state in antepartum period 09/05/2022 04/29/2023 History of iron deficiency anemia 08/01/2022 04/03/2023 Patient request for diagnostic testing 08/01/2022 04/03/2023 Overview: 3Patient desires aneuploidy screening. Contact information for [employer] given to patient to check on insurance coverage. Patient considering genetic carrier screening testing. Contact information for for [employer] given to patient to check on foresight coverage.Chloe Hussein RN Childhood overweight, BMI 85-94.9 percentile 6 05/11/2021 documented as of this encounter (statuses as of 06/24/2023) [facility] Miscellaneous Notes* Telephone Encounter - Deepali Blanco MD - 12/30/2022 1:43 PM EDT See result note 3 hr GTT ordered documented in this encounterGlenbeigh Hospital10-20-2023 Miscellaneous Notes* Quick Notes - Em Sampson APRN.CNM - 12/27/2022 3:26 PM EDT KELLI-S: Radha Barnes is a 22 year old female who presents at 29w4d with NAJMA:03/18/2023, by Last Menstrual Period for a routine visit. Good FM. Denies headache, visual changes, chest pain, shortness ofbreath, vaginal bleeding, leakage of fluid, or dysuria. [...] reviewed Em Sampson APRN.CNM documented in this encounterGlenbeigh Hospital10-20-2023 History of Present illness Narrative* Albin Willis Cma - 12/27/2022 3:22 PM EDT Patient identified by name and date of [...] severely ill: Yes Patient denies history of Guillain-[place]lington Syndrome (a severe paralytic illness): Yes Tdap Adacel injection was given without incident. See immunizations for details of immunizations administered today. VIS sheet provided: Yes Provider Em Sampson CNM was present in office at time of injection. Albin Willis Cma documented in this encounterGlenbeigh Hospital10-20-2023 Instructions* Patient Instructions* Albin Willis Cma - 12/27/2022 3:18 PM EDT SEQUENTIAL SCREENINGS [facility] offers sequential screenings for women who are interested in screenings for chromosomal abnormalities and certain defects during a . The sequential screen combinesultrasound and blood tests to determine the risk [...] this testing. It will require an appointment withour breed to wean production technician. This is not an ultrasound performed [...] the above symptoms, contact our office at [phone] and ask to speak with anurse. After hours, you can call doctors registry at [phone] OR call [facility] at [phone] ask to have the doctor communications professional paged. If you consider this an emergency, dial 9- or go to your nearest emergency department. NEED HELP? Are you dealing with a violent or abusive relationship? Are you a victim of rape or sexual assult? Call [facility] ([place]) 24 hour Crisis Hotline: 644.710.2147 or 832-654-5736. MANUAL Your Guide to a Healthy manual is now on-line. Visit [email or web address] to download your free copy documented in this encounterGlenbeigh Hospital09-25-2023 History of Present illness Narrative* Em Mejias APRN.HAMMER SMITH - 12/02/2022 3:34 PM EDT This note was created using [employer] Authorities of Indianapolisriter. Subjective Radha Barnes is a 22 year [...] history is provided by the patient. No language assistant was used. Vaginal Problem This is a new problem. The current episode started in the past 7 days. The problem occurs constantly. The problem has been unchanged. Associated symptoms include nausea. Pertinent negatives include no abdominal pain, chest pain, chills, congestion, coughing, fever, headaches, rash, urinary symptoms, vomiting or weakness. Nothing aggravates the symptoms. She has tried nothing for the symptoms. Thetreatment provided no relief. PAST MEDICAL HISTORY Diagnosis [...] Paternal Grandfather Heart Paternal Grandfather age 52 PA; adn MGGF Social History Tobacco Use Smoking [...] Neurological: Negative for dizziness, facial asymmetry, weakness, light- headedness and headaches. Hematological: Negative for adenopathy. Does [...] send urine culture Discussed with patient that [facility] care does not perform pelvic exams on patients greater than 24 weeks Have made an appt with her housetrailer servicer for 4 pm tomorrow Discussed red flags and reasons to seek ED. - UA DIP, URINE (POC) - URINE CULTURE 2. Vaginal itching - ICD9: 698.1, ICD10: N89.8 X 7 days Urine dip negative Will send urine culture Discussed with patient that [facility] does not perform pelvic exams on patients greater than 24 weeks Have made an appt with her housetrailer servicer for 4 pm tomorrow Discussed red flags and reasons to seek ED. Em Mejias APRN.HAMMER SMITH documented in this encounterGlenbeigh Hospital09-22-2023 Miscellaneous Notes* Quick Notes - Deepali Blanco MD - 11/29/2022 3:24 PM EDT SW- Pt doing well. No ctx, pain, vb, lof. Good FM PE: Gen- NAD, well appearing Abd- Soft, gravid, NT Ext- No edema See flowsheet A/p 25 wk gestation - 28 wk labs ordered - Flu vaccine given - Rh negative: Will need Rhogam - RTO 4 wks Deepali Blanco DO documented in this encounterGlenbeigh Hospital09-22-2023 Instructions* Patient Instructions* Britany Min MA - 11/29/2022 3:10 PM EDT SEQUENTIAL SCREENINGS [facility] offers sequential screenings for women who are interested in screenings for chromosomal abnormalities and certain defects during a . The sequential screen combinesultrasound and blood tests to determine the risk [...] this testing. It will require an appointment withour breed to wean production technician. This is not an ultrasound performed [...] the above symptoms, contact our office at [phone] and ask to speak with anurse. After hours, you can call doctors registry at [phone] OR call [facility] at [phone] ask to have the doctor communications professional paged. If you consider this an emergency, dial 9--1 or go to your nearest emergency department. NEED HELP? Are you dealing with a violent or abusive relationship? Are you a victim of rape or sexual assult? Call [facility] ([place]) 24 hour Crisis Hotline: 663.770.4591 or 866-793-2018. MANUAL Your Guide to a Healthy manual is now on-line. Visit [email or web address] to download your free copy documented in this encounterGlenbeigh Hospital08-29-2023 Miscellaneous Notes* Telephone Encounter - Dora Tamayo MD - 11/05/2022 10:52 AM EDT Done Also please let her know that recommends a growth US at 32 and 36 weeks, as well as recommend GI follow up scheduled . Thanks! Dora Tamayo MD * Telephone Encounter - Cassie Ewing RN - 11/05/2022 10:46 AM EDT Please file f/u anatomy u/s order to attach to appointment. Cassie Ewing RN * Telephone Encounter - Cassie Ewing RN - 11/05/2022 10:46 AM EDT ----- Message from Dora Tamayo MD sent at 11/05/2022 10:34 AM EDT ----- Follow up is scheduled Dora Tamayo MD documented in this encounterGlenbeigh Hospital08-24-2023 Miscellaneous Notes* Telephone Encounter - Leonarda Rivera RN - 10/31/2022 9:52 AM EDT 2nd risk assessment form submitted 10/31/2022. 20w2d today documented in this encounterGlenbeigh Hospital08-15-2023 History of Present illness Narrative* Ileana, Marjorie, STEPHANIE.HAMMER SMITH - 10/22/2022 10:52 AM EDT CC: Patient presents with: ED Follow-up HPI Radha Barnes is a 22 year old female who presents today for above, she is 19 weeks . Patient presented to [facility] on 10/14 with chest pain, palpitations [...] Paternal Grandfather Heart Paternal Grandfather age 52 PA; adn MGGF Social History Tobacco Use Smoking [...] distal pulses DATA REVIEWED: Outside chart from [facility] reviewed. ASSESSMENT/PLAN: 1. Tachycardia - ICD9: [...] occur. Patient agreeable to treatment plan. Marjorie Tejeda APRN.CNP documented in this encounterGlenbeigh Hospital08-07-2023 Discharge summary Author Rafael Hudson [facility] October 14, 2022 3:53pm Note Date/Time October 14, 2022 11: 19am [facility] Medical Records Department [address] [place] [address] Emergency Department Summary 10/14/22 MR#: [id number] Acct: [id number] Name: RADHA BARNES Rep #:[id number] : 2000 22 From: Rafael Hudson MD PCP: Dr. Britney aKy MD Status:REG E R Location: ED HPI History of Present Illness Chief Complaint: Chest Pain Detail of Chief Complaint: Midsternal chest tightness that started Friday Informant: patient Onset/Context/Timing Onset: Days (October 12) Activity at onset: sudden Timing: Continuous Quality: Positive for Tightness Location: Substernal Current Severity: Mild Maximum Severity: Moderate Worsened By: - (Walking); Not Worsened By Movement of Arm, Movement of Torso, Palpation, Breathing or Coughing Relieved By: Nothing Associated Symptoms: Positive for Dyspnea, Cough (Started today) and Palpitations; Negative for Nausea, Vomiting, Diaphoresis, Fever, Lightheadednessor Acid Reflux Narrative Narrative: Patient is a 22-year-old female who is 17 weeks gestation and presents with midsternal chest tightness without radiation. She does report mild shortness ofbreath. She states her pain resolves when she is supine. If she is up and about the pain is present. She denies history of PE or DVT. She denies leg pain, swelling or discoloration. There is a family history of PE, maternal grandfather. She denies fever, chills night sweats. She denies rhinorrhea, congestion postnasal drainage. She does endorse sore throat and cough which started today. She denies abdominal pain. She denies GI symptoms. She denies urologic symptoms other than frequency. Prior Similar Symptoms: Yes (Pleurisy) CVD Risk Factors: Negative for Hypertension, Diabetes, Hypercholesterolemia, Family History 1' </=55 or Smoking PE Risk Factors: Negative for Recent Travel/Surgery, Recent Immobilization, Prior DVT or PE, Cancer or OCP + Smoking + >/=35 TAD Risk Factors: Negative for Marfan's Syndrome, Hypertension or Family History PFSH PFS Medical History Ulcerative colitis Home Medications ergocalciferol (vitamin D2) 1,250 mcg (50,000 unit) capsule 50,000 unit PO QWEEK12/16/21 [History Last Taken Unknown] ferrous sulfate 325 mg (65 mg iron) tablet 325 mg PO X1 12/16/21 [History Last Taken Unknown] Allergy/AdvReac Type Severity Reaction Status Date / Time No Known Allergies Allergy Verified 10/14/22 11:07 Social History (Updated 10/14/22 @ 11:[address] Rafael Hudson MD) Smoking Status: Never smoker substance use type: does not use ROS ROS ED Constitutional Constitutional ED: Denies chills, fever(s), subjective, sweats or weight loss Eyes Eyes: Reports none; Denies blurry vision or change in vision ENT ENT ED: Reports sore throat; Denies ear pain or rhinorrhea Cardiovascular Cardiovascular: Reports as per HPI; Denies orthopnea or paroxysmal nocturnal dyspnea Respiratory/Chest Respiratory/Chest: Reports cough; Denies dyspnea, dyspnea on exertion, orthopnea, paroxysmal nocturnal dyspnea or sputum Gastrointestinal Gastrointestinal: Denies abdominal pain, melena, nausea or vomiting Genitourinary Genitourinary ED: Reports urinary frequency; Denies dysuria or hematuria Musculoskeletal Musculoskeletal: Denies arthralgias, back pain, myalgias or neck pain Integumentary Denies abscess, Abrasions or rash Neurologic Neurologic: Denies headache(s), paresthesias or weakness Hematologic/Lymphatic Hematologic/Lymphatic: Denies easy bleeding or easy bruising EXAM Physical Exam Const Vital Signs: 10/14/22 11:05 10/14/22 11:25 10/14/22 11:25 Temperature 97.6 F L Temperature Source Temporal Pulse Rate 124 H 107 H Respiratory Rate 18 Respiratory Effort Normal Non-Labored Blood Pressure 122/80 H Blood Pressure Mean 94 Pulse Ox 100 Oxygen Delivery Method Room Air 10/14/22 14:11 Temperature 99.4 F H Temperature Source Oral Pulse Rate Respiratory Rate Respiratory Effort Blood Pressure Blood Pressure Mean Pulse Ox Oxygen Delivery Method Positive well nourished and well developed General Appearance ED: well developed and NAD; Negative for pallor HEENT Reports TM's clear and moist mucous membranes normocephalic Tympanic Membrane ED: Yes TM's clear Eyes PERRL and EOMs intact bilaterally General Eye ED: Negative for pale conjunctiva or scleral icterus Neck no lymphadenopathy, supple and no JVD Neck Narrative: Trachea is midline. There is no inspiratory stridor. Resp normal respiratory effort and clear to auscultation bilaterally Cardio regular rhythm, S1 normal heart sound, S2 normal heart sound and no murmurs Rate: tachycardic Peripheral Pulses: pulses 2+ throughout GI normal to inspection, nondistended, normoactive bowel sounds, soft to palpation,non-tender and non-distended; Negative for hepatosplenomegaly GI Narrative: Fundal height is 3 fingerbreadths below the umbilicus. Back/Spine no CVA tenderness and no thoracic nor lumbar tenderness Extremity normal to inspection Extremity Narrative: There is no asymmetry, swelling, discoloration, leg vein distention, palpable cords or tenderness along the distribution of the deep venous system. Neuro oriented x3, CN's II-XII intact bilaterally, no sensory deficits noted and gait normal Sensorium / Orientation: awake and alert Motor Exam: strength 5/5 throughout Psych mental status grossly normal Skin no rashes or lesions noted and no wounds General Skin Exam: Negative for jaundice or pallor MDM MDM MDM Narrative Medical decision making narrative: Patient is not PERC negative. Since patient is not PERC negative will obtain D- dimer. EKG was obtained since patient has a rapid regular heart rate to assess for dysrhythmia. With patient now complaint of sore throat and cough this may represent respiratory infection as well. Also need to consider myocarditis, pericarditis. Patient's work-up included EKG to assess rhythm, chest x-ray and appropriate blood work. Lab Data Attestation: I reviewed the patient's lab results. Lab results narrative: CBC is unremarkable. And within normal limits for a woman who is second trimester . Troponin is less than 3. This is with days of symptoms. Basic metabolic panel is marked for potassium 3.2 otherwise unremarkable. Labs: Laboratory Results - last 24 hr 10/14/22 11:25 WBC 8.9 RBC 3.82 L Hgb 12.0 Hct 34.6 L MCV 90.6 MCH 31.4 MCHC 34.7 RDW Std Deviation 43.2 RDW Coeff of Neville 13.2 Plt Count 283 MPV 9.1 Immature Gran % (Auto) 0.400 Neut % (Auto) 83.4 H Lymph % (Auto) 10.3 L Nelson % (Auto) 5.6 Eos % (Auto) 0.1 Baso % (Auto) 0.2 Absolute Neuts (auto) 7.4 Absolute Lymphs (auto) 0.92 Nucleated RBC % 0 D-Dimer Quant (PE/DVT) 1.02 H* Sodium 136 Potassium 3.2 L Chloride 105 Carbon Dioxide 25.0 Anion Gap 6 BUN 2 L Creatinine 0.44 L Estim Creat Clear Calc 159.96 Est GFR (MDRD) Af Amer 233 Est GFR (MDRD) Non-Af 192 BUN/Creatinine Ratio 4.6 L Glucose 109 H Calcium 8.9 Troponin I High Sens < 3 L D-dimer is elevated. With elevated D-dimer, tachycardia, dyspnea and normal chest x-ray will obtain CTA to assess for pulmonary embolus. Radiography Chest X-Ray - ED: 2 View and Read by ED Physician (2 view chest x-ray supine reviewed interpreted by me at 1144 is negative. Cardiac silhouette and size normal. Perihilar region normal. Lung parenchyma normal. Osseous structures are unremarkable.) Diagnostic Testing: Clinical Impression(s) from Imaging Studies Chest X-Ray 10/14/22 11:12 IMPRESSION: Normal x-ray examination of the chest. Electronically Signed: Gustabo Gray MD at 11:59 EDT , Chest CTA 10/14/22 11:51 IMPRESSION: Normal CTA chest examination, without a demonstrated pulmonary embolism or arterial dissection. Electronically Signed: Gustabo Gray MD at 12:37 EDT , Echocardiogram 10/14/22 14:07 Interpretation Summary Normal LV size. Left ventricular systolic function is normal. The estimated ejection fraction is 55 %. Structurally normal valves. Ordering Physician: Rafael Hudson Referring Physician: BRITNEY KAY Performed By: Gaye Gurrola RCS Rhythm Strip Rhythm Strip: Sinus Tach Rate: 120 Ectopy: None EKG Initial EKG: Attestation: I personally reviewed and interpreted this EKG as follows: Interpretation: Sinus Tachycardia (Rate is 119. NH interval is 96 ms. QRS duration 80 ms. QT durations 120 ms. [place] is normal. There are ST-T wave abnormalities noted in the inferior leads. Per review of old record patient hada normal EKG June 2019. Surveillance Supervisor was asked to obtain old EKG.) Management Discussion w/another healthcare provider: Rug Inspector Helper (Discussed case with Dr. Perera. Recommendation is echo in the emergency department. This was ordered.) Discharge Plan Triage Chief Complaint: Chest Pain ED Provider: Rafael Hudson Dx/Rx/DC Orders Clinical Impression: Acute dyspnea, Sinus tachycardia, Chest pain Instructions: ED About Arrhythmias, ED Chest Pain, Uncertain Cause, ED Dyspnea Prescriptions: No Action ferrous sulfate 325 mg (65 mg iron) tablet 325 mg PO X1 Patient Comments: TAKE 1 TABLET BY MOUTH EVERY DAY WITH BREAKFAST Rx Instructions: PT STATES SHE TAKES IT WHENEVER SHE FEELS LIGHTHEADED-USUALLY <1X/WEEK ergocalciferol (vitamin D2) 1,250 mcg (50,000 unit) capsule 50,000 unit PO QWEEK Patient Comments: TAKE 1 CAPSULE BY MOUTH ONE TIME A WEEK. Primary Care Provider: Britney Kay Referrals: Britney Kay MD [Primary Care Provider] - Donavon Odell MD [Med Staff - Active Staff] - 5-7 Days Disposition Disposition: Home, Self Care What to do if you have Problems For any increased pain, shortness of breath, bleeding, nausea or vomiting, chestpain, or any unexpected problems, contact your Primary Care Provider. Call Doctors Registry ([phone]) or report to the closest Emergency Room. Call 911 if necessary. 10/14/22 1553 <Electronically signed by Rafael Hudson MD> Cosigner Signature (if applicable): CC: Dr. Britney Kay MD ~ Signed [facility] Work Phone: 1(718) 327-825308-07-2023 History of Present illness Narrative* Tomasz Childs APRN.CNP - 10/14/2022 11:15 AM EDT Patient [facility] at [facility]. Here today with worsening chest pain 7/10, worsens with activity. Denies uri symptoms. In on apparent distress. I will refer to ER, declines squad. documented in this encounterGlen[facility]igh Hospital08-04-2023 Miscellaneous Notes* Telephone Encounter - Mary Pozo Ma - 10/11/2022 8:48 AM EDT Approval through both her primary/[place], and medicaid secondary, to fill through [facility] Requested Prescriptions Pending Prescriptions Disp Refills adalimumab 40 mg/0.4 mL subcutaneous pen kit (HUMIRA (CF)) 1 Kit 11 Sig: Inject 40 mg subcutaneously every 2 weeks. aMry Pozo CMA documented in this encounterGlenbeigh Hospital07-26-2023 History of Present illness Narrative* Giana Arceo PA-C - 10/02/2022 2:39 PM EDT CHIEF COMPLAINT: Patient presents with: Ulcerative pancolitis: Colon not done HPI Radha Barnes is a 22 year old female here today for Ulcerative pancolitis (Colon not done). Dx with ulcerative pancolitis 12/08/2020. Was having minimal improvement in inflammatory levels with mesalamine, so advised switch to Humira. Started injections 10/12/2021 and clinically felt well. Recentcal 05/2022 significantly elevated, prescribed course of prednisone, C. Diff neg. Advised to obtainupdated colonoscopy last OV 06/2022 but pt could [...] Abs Lymph 1.00 - 4.00 k/uL 1.74 Nelson% % 7.3 Abs Nelson <0.87 k/uL 0.61 Eosin% % 0.4 Abs [...] Paternal Grandfather Heart Paternal Grandfather age 52 PA; adn MGGF REVIEW OF SYSTEMS Review of Systems All other systems reviewed and are negative. PHYSICAL EXAM BP 112/72 Pulse 90 Ht 154.9 cm (5' 1) Wt 63 kg (139 lb) LMP 06/11/2022 [...] sooner if she changes her mind - OB-SLOT SUPERVISOR following - Will check updated inflammatory markers, LFTs I spent a total of 15 minutes on the date of the service which included preparing to see the patient, [id number] patient care, completing clinical documentation, obtaining and/or reviewing separately obtained history, performing a medically appropriate examination, counseling and educating the pat ient/family/caregiver, ordering medications, tests, or procedures, communicating with other HCPs (not separately reported), independently interpreting results (not separately reported), communicatingresults to the patient/family/caregiver, and care coordination (not separately reported). Giana Arceo PA-C October 02, 2022 3:23 PM documented in this encounterGlenbeigh Hospital07-14-2023 Miscellaneous Notes* Telephone Encounter - Mary Pozo Ma - 09/20/2022 2:36 PM EDT Patient is , cannot have a colonoscopy. I did leave her a message regarding the Nenita Hernandez Pozo INCIDENT HANDLER documented in this encounterGlenbeigh Hospital06-28-2023 History of Present illness Narrative* Gila Hopper MA - 09/04/2022 10:56 AM EDT The patient is here for an injection of Cyanocoblamin (B12). Dose: 1 ml (1000 mcg) Route: IM Site: left deltoid Batch Attendant: [employer] Lot #: [id number] Expiration Date: 1123 Gila Hopper MA * Ana Rico MD - 09/04/2022 9:44 AM EDT Radha Barnes 2000 September 04, 2022 HPI: Radha Barnes is a 22 year old female with iron deficiency anemia secondary to ulcerative colitis and menorrhagia. She was referred by Giana Arceo PA-C for evaluation of anemia. She has [...] Paternal Grandfather Heart Paternal Grandfather age 52 PA; adn MGGF Social History Tobacco Use Smoking [...] kg (142 lb) Height: 154.9 cm (5' 1) Body mass index is 26.83 kg/m . [...] - Follows with Dr. Adams and Giana Arceo PA-C. 4. B12 deficiency. - B12 295 [...] information essential in contributing to medical decision making.Documentation has been reviewed and edited as necessary to support clinical decision making for today's visit 09/04/2022. Medical Decision Making: Problems: Moderate: New problem with uncertain prognosis Data: Unique test result(s) reviewed: 3+ Unique test(s) ordered: 3+ Risk: Low: Low risk from testing/treatment Medical Decision Making Level: 4 - Moderate documented in this encounterGlenbeigh Hospital06-27-2023 Miscellaneous Notes* Quick Notes - Dora Tamayo MD - 09/03/2022 10:51 AM EDT KJ - VB No. LOF No. CTXS No. Movement: absent. Other c/o: No. Medication list reviewed. Physical Exam See Flow Sheet Gen: no accute distress, well appearing A/P 12w0d Estimated Date of Delivery: 03/18/23 NT with NIPT today UC - GI doc plans to have her restart Humira Anemia - encouraged Fe & Regular PNV use. Dora Tamayo MD documented in this encounterGlenbeigh Hospital06-27-2023 History of Present illness Narrative* Alka Bonilla Ma - 09/03/2022 10:07 AM EDT Patient here for First Trimester Screening. See ultrasound report for details. Options for genetic screening and diagnosis discussed with the patient. Patient opts for first trimester screening and the sequential screening protocol. Limitations of screening tests discussed withthe patient. Dora Tamayo MD documented in this encounterGlenbeigh Hospital06-27-2023 Instructions* Patient Instructions* Alka Bonilla Ma - 09/03/2022 10:06 AM EDT SEQUENTIAL SCREENINGS [facility] offers sequential screenings for women who are interested in screenings for chromosomal abnormalities and certain defects during a . The sequential screen combinesultrasound and blood tests to determine the risk [...] this testing. It will require an appointment withour breed to wean production technician. This is not an ultrasound performed [...] the above symptoms, contact our office at [phone] and ask to speak with anurse. After hours, you can call doctors registry at [phone] OR call [facility] at [phone] ask to have the doctor communications professional paged. If you consider this an emergency, dial 9-1-1 or go to your nearest emergency department. NEED HELP? Are you dealing with a violent or abusive relationship? Are you a victim of rape or sexual assult? Call [facility] ([place]) 24 hour Crisis Hotline: 740.503.1622 or 292-265-6358. MANUAL Your Guide to a Healthy manual is now on-line. Visit [email or web address] to download your free copy SEQUENTIAL TESTING PROCESS Sequential Screen First Trimester Today you are currently: 12w0d weeks 09/03/2022: Ultrasound and blood test. Sequential Screen Second Trimester (16-17 Weeks Gestation) When you are called with your results, the nurse will give the optimal draw dates for the Sequential screen second trimester. Blood testing can be done at any [facility] lab. Please report to the any group leader semiconductor processing office assistant front desk manager for the Sequential Part 2 requisition and order before reporting to the lab. Your weight will need to be documented for testing. Please note: -No appointment is need for your second blood draw. -Office hours are 8 am to 4:30 pm. -Please have testing done prior to 12 noon on Friday's -Once the sequential testing is started, in the first trimester the only follow- up will be for the sequential screen second trimester. Please don't have a Quad screen ordered by another provider. If you or your Provider have any questions please call your maternal medicine office, for east side please call [phone] or for the West side call [phone] and ask for the the nurse. Thank you. documented in this encounterGlenbeigh Hospital06-22-2023 Miscellaneous Notes* Telephone Encounter - Judy Davis APRN.CNM - 08/29/2022 9:41 AM EDT Please notify patient that Rx for Flagyl 500 mg PO BID x 7 days was sent. NO intercourse during treatment. Judy Davis APRN.CNM * Telephone Encounter - Eulalia Nguyễn LPN - 08/29/2022 8:57 AM EDT Please see pt's vaginal culture results and advise. Pt viewed results in mychart. Eulalia Nguyễn LPN documented in this encounterGlenbeigh Hospital06-20-2023 Miscellaneous Notes* Quick Notes - Em Sampson APRN.CNM - 08/27/2022 9:54 AM EDT KELLI-S: Radha Barnes is a 22 year old female who presents at 11w0d with NAJMA:03/18/2023, by Last Menstrual for a problem visit. Denies headache, visual changes, chest pain, shortness of breath, vaginalbleeding, leakage of fluid, or dysuria. Feeling well, no complaints. O: See flow sheet Gen: No apparent distress Abd: Gravid, nontender. Unable to auscultate FHT, limited bedside US for FHR and FM. PELVIC: external genitalia normal, Mons and labia majora with erythema and excoriation. normal Bartholin's glands, urethra, Topawa's glands, no vulvar lesions, no cervical lesions, [...] results. Em Sampson APRN.CNM documented in this encounterGlenbeigh Hospital06-05-2023 Miscellaneous Notes* Telephone Encounter - Giana Arceo PA-C - 08/12/2022 10:48 AM EDT D/W Mary Pozo who called pt, pt is switching insurance to [place] med[place]. Has been off of Humira since 06/2022, currently . Will plan to check drug levels/ab. If WNL will need new PA to restart Humira. Giana Arceo PA-C documented in this encounterCleveland [id number] Miscellaneous Notes* Telephone Encounter - Gauri Drew RN - 08/08/2022 3:03 PM EDT Initial risk assessment form submitted 08/08/2022 Gauri Drew RN documented in this encounterGlenbeigh Hospital05-30-2023 History of Present illness Narrative* Dora Tamayo MD - 08/06/2022 1:58 PM EDT INITIAL OB ASSESSMENT Manager Scheduling offered: Patient declines. HPI: Radha is a 22 year old White here to establish Obstetrical Care. Patient's last menstrualperiod was 06/11/2022 (exact date). from OB Dating [...] use: No Multivitamin with Folic acid: Yes Yarsanism or heritage: No Would refuse blood transfusion if medically necessary: No Are you currently employed? 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 Discussed aneuploidy and carrier screening. Regarding aneuploidy [...] up in 4 weeks or sooner prn. Dora Tamayo MD documented in this encounterGlenbeigh Hospital05-30-2023 Instructions* Patient Instructions* Alka Bonilla Ma - 08/06/2022 1:58 PM EDT Please select the following link to access the [facility] Your Guide to a Healthy . [email or web address] documented in this encounterGlenbeigh Hospital04-21-2023 History of Present illness Narrative* Ana Rico MD - 06/28/2022 10:48 AM EDT Radha Barnes 2000 June 28, 2022 HPI: Radha Barnes is a 22 year old female with iron deficiency anemia secondary to ulcerative colitis and menorrhagia. She was referred by iGana Arceo PA-C for evaluation of anemia. She has [...] Paternal Grandfather Heart Paternal Grandfather age 52 PA; adn MGGF Social History Tobacco Use Smoking [...] kg (134 lb) Height: 156.8 cm (5' 1.75) Body mass index is 24.71 kg/m . [...] - Follows with Dr. Adams and Giana Arceo PA-C. 4. Menorrhagia. - Improved. Follow up in 6 months or sooner if symptomatic. Check CBC, ferritin and iron+TIBC prior to visit. Call for questions or concerns. Ana Rico MD Portions of this note including ROS, impression/plan, and examination may have been copied forward as to provide important historical information essential in contributing to medical decision making.Documentation has been reviewed and edited as necessary to support clinical decision making for today's visit 06/28/2022. Medical Decision Making: Problems: Low: Stable chronic illness Data: Unique test result(s) reviewed: 3+ Unique test(s) ordered: 3+ Medical Decision Making Level: 3 - Low documented in this encounterGlenbeigh Hospital04-14-2023 Instructions* Patient Instructions* Isabella Yeboah APRN.CNP - 06/21/2022 11:18 AM EDT Menstrual/ovulation tracker Condoms with VCF contraceptive strips. documented in this encounterGlenbeigh Hospital04-14-2023 History of Present illness Narrative* Isabella Yeboah APRN.CNP - 06/21/2022 10:26 AM EDT Manager Scheduling offered: Patient declines. Garcia is a 22 year old No [...] OB History No obstetric history on file. Fun House Operator History LMP: 12/17/2021 (Exact Date), Having periods Age at Menarche: Age at First : Age at Menopause: Fun House Operator History Comments: Sexual Activity: Yes; No partner [...] Paternal Grandfather Heart Paternal Grandfather age 52 PA; adn MGGF SOCIAL HISTORY Social History Tobacco [...] external genitalia normal, normal Bartholin's glands, urethra, Topawa's glands, no vulvar lesions, no cervical lesions, [...] year or sooner as needed Isabella Yeboah APRN.HAMMER SMITH documented in this encounterGlenbeigh Hospital04-03-2023 Instructions* Patient Instructions* Giana Arceo PA-C - 06/10/2022 11:51 AM EDT Images [...] If you do not have a responsible route driver (family member or friend) withyou to take you home, your exam cannot be done with sedation and will be cancelled. Please bring a list of all of your current medications, including any Gidz-uqx-Cctqyrj medications with you. Medications If you take insulin, diabetic medications or blood thinners such as Coumadin (warfarin), Plavix (clopidogrel), Ticlid (ticlopidine hydrochloride), Agrylin (anagrelide), Xarelto (Rivaroxaban), Pradaxa(Dabigatran), Eliquis (Apixaban), and Effient (Prasugrel). You MUST [...] every 15 minutes for a total of 2glasses. You may continue to drink clear liquids up to (three) 3 hours before your exam. 2 02/2019 documented in this encounterGlenbeigh Hospital04-03-2023 History of Present illness Narrative* Giana Arceo PA-C - 06/10/2022 11:34 AM EDT CHIEF COMPLAINT: Patient presents with: Recheck: No [...] prednisone taper. Starting to notice significant improvement withthe Humira. Bms are currently 1-2 per day, [...] Paternal Grandfather Heart Paternal Grandfather age 52 PA; adn MGGF REVIEW OF SYSTEMS Review of Systems All other systems reviewed and are negative. PHYSICAL EXAM BP 116/74 Pulse 64 Ht 154.9 cm (5' 1) Wt 61.7 kg (136 lb) LMP 12/17/2021 [...] which included preparing to see the patient, rrkc-of-nolw patient care, completing clinical documentation, obtaining and/or reviewing separately obtained history, performing a medically appropriate examination, counseling and educating the pat ient/family/caregiver, ordering medications, tests, or procedures, communicating with other HCPs (not separately reported), independently interpreting results (not separately reported), communicatingresults to the patient/family/caregiver, and care coordination (not separately reported). Giana Arceo PA-C June 10, 2022 11:55 AM documented in this encounterGlenbeigh Hospital03-23-2023 Miscellaneous Notes* Addendum Note - Giana Arceo PA-C - 05/30/2022 10:14 AM EDTAddended by: GIANA ARCEO on: 05/30/2022 10:14 AM Modules accepted: Orders documented in this encounterGlenbeigh Hospital02-22-2023 History of Present illness Narrative* Braden Hammonds APRN.HAMMER SMITH - 05/01/2022 10:27 AM EST Subjective HPI Nontoxic-appearing female presents urgent care [...] pain hemoptysis nausea vomiting abdominal pain change inbowel or bladder habits. Past medical history prescription [...] Paternal Grandfather Heart Paternal Grandfather age 52 PA; adn MGGF Social History Tobacco Use Smoking [...] of care. This note was generated using [employer] software. It may contain errors in wording, punctuation, or spelling. Braden Hammonds APRN.HAMMER SMITH documented in this encounterGlenbeigh Hospital01-11-2023 Miscellaneous Notes* Telephone Encounter - Britany Rhodes RN - 03/20/2022 4:26 PM EST Pt called in and was asking if we could print out physical from Dr Ford done on 05/11/21. She states she needs to bring it to her work. 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 documented in this encounterGlenbeigh Hospital01-06-2023 Miscellaneous Notes* Telephone Encounter - Mary Pozo Ma - 03/15/2022 4:25 PM EST Nenita HAUSER approval CaseId:[id number];Status:Approved;Review Type:Prior Auth;Coverage Start Date:02/13/2022;Coverage End D ate:03/15/2023;;CaseId:[id number];Status:Cancelled;Explanation:PA not Required.The Prescribed limit is below the plan limit; Mary Pozo CMA documented in this encounterGlenbeigh Hospital12-22-2022 History of Present illness Narrative* Ana Rico MD - 02/28/2022 9:25 AM EST Radha Barnes 2000 February 28, 2022 HPI: Radha Barnes is a 21 year old female with iron deficiency anemia secondary to ulcerative colitis and menorrhagia. She was referred by Giana Arceo PA-C for evaluation of anemia. She has [...] Paternal Grandfather Heart Paternal Grandfather age 52 PA; adn MGGF Social History Tobacco Use Smoking [...] kg (146 lb) Height: 154.9 cm (5' 1) Body mass index is 27.59 kg/m . [...] - Follows with Dr. Adams and Giana Arceo PA-C. 4. Menorrhagia. Follow up in 4 months. Check CBC, ferritin and iron+TIBC prior to visit. Call for questions or concerns. Ana Rico MD Portions of this note including ROS, impression/plan, and examination may have been copied forward as to provide important historical information essential in contributing to medical decision making.Documentation has been reviewed and edited as necessary to support clinical decision making for today's visit 02/28/2022. Medical Decision Making: Problems: Moderate: 1+ chronic illnesses with change Data: Unique test result(s) reviewed: 3+ Unique test(s) ordered: 3+ Risk: Moderate: Drug management Medical Decision Making Level: 4 - Moderate documented in this encounterGlenbeigh Hospital10-26-2022 History of Present illness Narrative* Britney Kay MD - 01/02/2022 5:10 PM EDT Reason for Visit Patient presents with: Same Day Appointment: passed out at work, hot flash and lightheaded and dizzy Radha Polo Cameron is a 21 year old female who presents here today for Above Complaints.. Health Maintenance HEPATITIS A(1 of 2 - Risk 2-dose series) PNEUMOCOCCAL(1 - PCV) MENINGOCOCCAL B: Consider based on risk(1 of 4 - Increased Risk Bexsero 2-dose series) GC (GONORRHEA) SCREENING (-24) CHLAMYDIA SCREENING (18-) SHINGRIX VACCINE(1 of 2) HPI Pancolitis: she [...] the medication, she did start feeling better onit though Patient notes she was fine all [...] smokies wrapped with carver. She works at [employer]. This happened on dec 25. Patient was [...] Paternal Grandfather Heart Paternal Grandfather age 52 PA; adn MGGF Social History Tobacco Use Smoking [...] F) Resp 12 Ht 154.9 cm (5' 1) Wt 65.8 kg (145 lb) LMP 12/17/2021 [...] spell Britney Kay MD documented in this encounterGlenbeigh Hospital10-14-2022 History of Present illness Narrative* Britney Kay MD - 12/21/2021 11:23 AM EDT Reason for Visit Patient presents with: Depression [...] Paternal Grandfather Heart Paternal Grandfather age 52 PA; adn MGGF Social History Tobacco Use Smoking [...] lb) LMP 05/08/2021 (Exact Date) SpO2 96% BMI26.74 kg/m General appearance: Well appearing, alert, in [...] IM Britney Kay MD documented in this encounterGlenbeigh Hospital10-11-2022 Miscellaneous Notes* Addendum Note - Giana Arceo PA-C - 12/18/2021 8:09 AM EDTAddended by: GIANA ARCEO on: 12/18/2021 08:09 AM Modules accepted: Orders documented in this encounterGlenbeigh Hospital10-09-2022 History of Present illness Narrative* Em Mejias APRN.CNP - 12/16/2021 12:00 PM EDT 21 year old female with PMH ulcerative [...] 99% BMI 26.55 kg/m documented in this encounterGlenbeigh Hospital10-07-2022 Miscellaneous Notes* Telephone Encounter - Kylee Coyle LPN - 12/14/2021 2:25 PM EDT Patient Playdekhart message requesting the following refill Refill(s) Requested: Requested Prescriptions Pending Prescriptions Disp Refills ferrous sulfate 325 mg (65 mg iron) tablet 30 tablet 5 Sig: Take 1 tablet by mouth daily with breakfast. ALLERGIES No Known Allergies (home) [phone] (cell) Last Office Visit Date: 11/02/2021 Last Distance Health Visit: Visit date not found Future Appointment: 02/28/2022 The patients preferred pharmacy has been captured for this encounter? yes Request is for script(s) to be escript to pharmacy. Kylee Coyle LPN documented in this encounterGlenbeigh Hospital09-23-2022 Instructions* Patient Instructions* Giana Arceo PA-C - 11/30/2021 8:55 AM EDT Plan to recheck calprotectin stool study/vitamin D lab around late December, early January 2022 documented in this encounterGlenbeigh Hospital09-23-2022 History of Present illness Narrative* Giana Arceo PA-C - 11/30/2021 8:41 AM EDT CHIEF COMPLAINT: Patient presents with: Recheck: No [...] prednisone taper. Starting to notice significant improvement withthe Humira. Bms are currently 1-2 per day, [...] Paternal Grandfather Heart Paternal Grandfather age 52 PA; adn MGGF REVIEW OF SYSTEMS Review of Systems Gastrointestinal: Positive for constipation. Gas All other systems reviewed and are negative. PHYSICAL EXAM BP 102/72 Pulse 66 Ht 156.8 cm (5' 1.75) Wt 66.7 kg (147 lb) LMP 05/08/2021 [...] which included preparing to see the patient, [id number] patient care, completing clinical documentation, obtaining and/or reviewing separately obtained history, performing a medically appropriate examination, counseling and educating the patient/family/caregiver, ordering medications, tests, or procedures, communicating with other HCPs (not separately reported), independently interpreting results (not separately reported), communicating results to the patient/family/caregiver, and care coordination (not separately reported). Giana Arceo PA-C November 30, 2021 8:53 AM documented [facility] encounterG[facility]22 Miscellaneous Notes* Telephone Encounter - Mary Sánchez Mandujano - 10/01/2021 11:57 AM EDT CaseId:[id number];Status:Approved;Review Type:Prior Auth;Coverage Start Date:09/01/2021;Coverage End Date:03/30/2022 Left [...] weeks. Mary Pozo CMA documented in this encounterG[facility]07-20-2022 History of Present illness Narrative* Giana Arceo PA-C - 09/26/2021 9:41 AM EDT CHIEF COMPLAINT: Patient presents with: Ulcerative Pancolitis: [...] not needed to take Levsin. Started on w eekly vitamin D last OV which she has [...] Paternal Grandfather Heart Paternal Grandfather age 52 PA; adn MGGF REVIEW OF SYSTEMS Review of [...] which included preparing to see the patient, [id number] patient care, completing clinical documentation, obtaining and/or reviewing separately obtained history, performing a medically appropriate examination, counseling and educating the pat ient/family/caregiver, ordering medications, tests, or procedures, communicating with other HCPs (not separately reported), independently interpreting results (not separately reported), communicatingresults to the patient/family/caregiver, and care coordination (not separately reported). Giana Arceo PA-C September 26, 2021 9:56 AM documented in this encounterGlen[facility]07-05-2022 Miscellaneous Notes* Telephone Encounter - Cami Romero LPN - 09/11/2021 1:31 PM EDT Copied for scanned documents. The original will be available in medical records today after 3 pm. Pt notified. * Telephone Encounter - Melvin Ford MD - 09/11/2021 12:39 PM EDT Form completed. * Telephone Encounter - Cami Romero LPN - 09/11/2021 11:[address] Ford seen pt 05/11/21. Form to him to review. There is another form in scanned documents that was completed at that appt. * Telephone Encounter - Sol Rocha RN - 09/07/2021 8:17 AM EDT Patient calls to check on status of physical form for job dropped off last week. Patient asking forcall back to verify office received form. Patient reports when form is ready she will pick it up in medical records. Please review and advise, Sol Rocha RN documented in this encounterG[facility]06-15-2022 Miscellaneous Notes* Telephone Encounter - Marlon Mulligan MA - 08/22/2021 7:46 AM EDT Patient phones requesting refills as follows: Pending Prescriptions Disp Refills MESALAMINE 1.2 GRAM TABLET,DELAYED RELEASE 120 tablet 3 Sig: Take 4 tablets by mouth once daily. Take with food. Do not cut tablet. SHIV: No Please review and advise. Marlon Mulligan MA documented in this encounterGlenbeigh Hospital05-26-2022 Miscellaneous Notes* Telephone Encounter - Giana Arceo PA-C - 08/02/2021 8:15 AM EDT Calprotectin cancelled in system, will place new order. Giana Arceo PA-C documented in this encounterGlenbeigh Hospital04-15-2022 History of Present illness Narrative* Ana Rico MD - 06/22/2021 2:10 PM EDT Radha Barnes 2000 June 22, 2021 HPI: Radha Barnes is a 21 year old female who is referred by Giana Arceo PA-C for evaluation of anemia. She has [...] Paternal Grandfather Heart Paternal Grandfather age 52 PA; adn MGGF Social History Tobacco Use Smoking [...] lb 9.6 oz) Height: 156.8 cm (5' 1.75) Body mass index is 25.37 kg/m . [...] - Follows with Dr. Adams and Giana Arceo PA-C. Follow up in 4 months. Check CBC, ferritin and iron+TIBC prior to visit. Call for questions or concerns. Ana Rico MD Portions of this note including ROS, impression/plan, and examination may have been copied forward as to provide important historical information essential in contributing to medical decision making.Documentation has been reviewed and edited as necessary to support clinical decision making for today's visit 06/24/2021. Medical Decision Making: Problems: Moderate: 2+ stable chronic illnesses Data: Unique test result(s) reviewed: 3+ Unique test(s) ordered: 3+ Risk: Moderate: Drug management Medical Decision Making Level: 4 - Moderate documented in this encounterGlenbe[facility] Hospital04-13-2022 Miscellaneous Notes* Telephone Encounter - Ellyn Mcmillan Sec - 06/20/2021 10:20 AM EDT Spoke with patient to ask about February 16 order for lab and stool test. Patient has a follow-up tomorrow and states she forgot about tests. She confirmed cancelling this appointment. She still has the stool order; will get testing done and call back to reschedule. Ellyn Mcmillan documented in this encounterGlenbeigh Hospital06-16-2016 History of Past illness Narrative* Problem Noted Date Resolved Date Childhood overweight, BMI 85-94.9 percentile 05/11/2021 documented as of this encounter (statuses as of 06/20/2021) [facility] Narrative* Problem Noted Date Resolved Date Childhood overweight, BMI 85-94.9 percentile 05/11/2021 documented as of this encounter (statuses as of 06/25/2021) [facility] Narrative* Problem Noted Date Resolved Date Childhood overweight, BMI 85-94.9 percentile 05/11/2021 documented as of this encounter (statuses as of 06/26/2021) [facility] Narrative* Problem Noted Date Resolved Date Childhood overweight, BMI 85-94.9 percentile 05/11/2021 documented as of this encounter (statuses as of 08/02/2021) [facility] Narrative* Problem Noted Date Resolved Date Childhood overweight, BMI 85-94.9 percentile 05/11/2021 documented as of this encounter (statuses as of 08/03/2021) [address]16-2016 History of Past illness Narrative* Problem Noted Date Resolved Date Childhood overweight, BMI 85-94.9 percentile 05/11/2021 documented as of this encounter (statuses as of 08/22/2021) [address]16-2016 History of Past illness Narrative* Problem Noted Date Resolved Date Childhood overweight, BMI 85-94.9 percentile 05/11/2021 documented as of this encounter (statuses as of 09/11/2021) [address]16-2016 History of Past illness Narrative* Problem Noted Date Resolved Date Childhood overweight, BMI 85-94.9 percentile 05/11/2021 documented as of this encounter (statuses as of 09/26/2021) [address]16-2016 History of Past illness Narrative* Problem Noted Date Resolved Date Childhood overweight, BMI 85-94.9 percentile 05/11/2021 documented as of this encounter (statuses as of 09/27/2021) [address]16-2016 History of Past illness Narrative* Problem Noted Date Resolved Date Childhood overweight, BMI 85-94.9 percentile 05/11/2021 documented as of this encounter (statuses as of 10/01/2021) [address]16-2016 History of Past illness Narrative* Problem Noted Date Resolved Date Childhood overweight, BMI 85-94.9 percentile 05/11/2021 documented as of this encounter (statuses as of 11/30/2021) [address]16[address]2016 History of Past illness Narrative* Problem Noted Date Resolved Date Childhood overweight, BMI 85-94.9 percentile 05/11/2021 documented as of this encounter (statuses as of 12/13/2021) [address]16[address]2016 History of Past illness Narrative* Problem Noted Date Resolved Date Childhood overweight, BMI 85-94.9 percentile 05/11/2021 documented as of this encounter (statuses as of 12/14/2021) [address]16-2016 History of Past illness Narrative* Problem Noted Date Resolved Date Childhood overweight, BMI 85-94.9 percentile 05/11/2021 documented as of this encounter (statuses as of 12/16/2021) [address]16[address]2016 History of Past illness Narrative* Problem Noted Date Resolved Date Childhood overweight, BMI 85-94.9 percentile 05/11/2021 documented as of this encounter (statuses as of 12/18/2021) [address]16-2016 History of Past illness Narrative* Problem Noted Date Resolved Date Childhood overweight, BMI 85-94.9 percentile 05/11/2021 documented as of this encounter (statuses as of 12/21/2021) [address]16[address]2016 History of Past illness Narrative* Problem Noted Date Resolved Date Childhood overweight, BMI 85-94.9 percentile 05/11/2021 documented as of this encounter (statuses as of 01/02/2022) [address]16-2016 History of Past illness Narrative* Problem Noted Date Resolved Date Childhood overweight, BMI 85-94.9 percentile 05/11/2021 documented as of this encounter (statuses as of 03/01/2022) [address]16-2016 History of Past illness Narrative* Problem Noted Date Resolved Date Childhood overweight, BMI 85-94.9 percentile 05/11/2021 documented as of this encounter (statuses as of 03/16/2022) [address]16[address]2016 History of Past illness Narrative* Problem Noted Date Resolved Date Childhood overweight, BMI 85-94.9 percentile 05/11/2021 documented as of this encounter (statuses as of 03/20/2022) [address]16-2016 History of Past illness Narrative* Problem Noted Date Resolved Date Childhood overweight, BMI 85-94.9 percentile 05/11/2021 documented as of this encounter (statuses as of 04/05/2022) [address]16-2016 History of Past illness Narrative* Problem Noted Date Resolved Date Childhood overweight, BMI 85-94.9 percentile 05/11/2021 documented as of this encounter (statuses as of 05/01/2022) [address]16-2016 History of Past illness Narrative* Problem Noted Date Resolved Date Childhood overweight, BMI 85-94.9 percentile 05/11/2021 documented as of this encounter (statuses as of 05/30/2022) [address]16-2016 History of Past illness Narrative* Problem Noted Date Resolved Date Childhood overweight, BMI 85-94.9 percentile 05/11/2021 documented as of this encounter (statuses as of 06/10/2022) [address]16-2016 History of Past illness Narrative* Problem Noted Date Resolved Date Childhood overweight, BMI 85-94.9 percentile 05/11/2021 documented as of this encounter (statuses as of 06/21/2022) [address]16[address]2016 History of Past illness Narrative* Problem Noted Date Resolved Date Childhood overweight, BMI 85-94.9 percentile 05/11/2021 documented as of this encounter (statuses as of 06/28/2022) [address]16[address]2016 History of Past illness Narrative* Problem Noted Date Resolved Date Childhood overweight, BMI 85-94.9 percentile 05/11/2021 documented as of this encounter (statuses as of 08/07/2022) [address]16-2016 History of Past illness Narrative* Problem Noted Date Resolved Date Childhood overweight, BMI 85-94.9 percentile 05/11/2021 documented as of this encounter (statuses as of 08/07/2022) [address] History of Past illness Narrative* Problem Noted Date Resolved Date Childhood overweight, BMI 85-94.9 percentile 05/11/2021 documented as of this encounter (statuses as of 08/08/2022) [address] History of Past illness Narrative* Problem Noted Date Resolved Date Childhood overweight, BMI 85-94.9 percentile 05/11/2021 documented as of this encounter (statuses as of 08/12/2022) [address]16-2016 History of Past illness Narrative* Problem Noted Date Resolved Date Childhood overweight, BMI 85-94.9 percentile 05/11/2021 documented as of this encounter (statuses as of 08/27/2022) [address]16-2016 History of Past illness Narrative* Problem Noted Date Resolved Date Childhood overweight, BMI 85-94.9 percentile 05/11/2021 documented as of this encounter (statuses as of 08/29/2022) [address]16-2016 History of Past illness Narrative* Problem Noted Date Resolved Date Childhood overweight, BMI 85-94.9 percentile 05/11/2021 documented as of this encounter (statuses as of 09/03/2022) [address]16-2016 History of Past illness Narrative* Problem Noted Date Resolved Date Childhood overweight, BMI 85-94.9 percentile 05/11/2021 documented as of this encounter (statuses as of 09/03/2022) [address]16-2016 History of Past illness Narrative* Problem Noted Date Resolved Date Childhood overweight, BMI 85-94.9 percentile 05/11/2021 documented as of this encounter (statuses as of 09/05/2022) [address]16[address]2016 History of Past illness Narrative* Problem Noted Date Resolved Date Childhood overweight, BMI 85-94.9 percentile 05/11/2021 documented as of this encounter (statuses as of 09/06/2022) [address]16-2016 History of Past illness Narrative* Problem Noted Date Diagnosed Date Resolved Date Childhood overweight, BMI 85-94.9 percentile 6 05/11/2021 documented as of this encounter (statuses as of 09/20/2022) [address]16[address]2016 History of Past illness Narrative* Problem Noted Date Diagnosed Date Resolved Date Childhood overweight, BMI 85-94.9 percentile 6 05/11/2021 documented as of this encounter (statuses as of 09/25/2022) [address]16[address]2016 History of Past illness Narrative* Problem Noted Date Diagnosed Date Resolved Date Childhood overweight, BMI 85-94.9 percentile 6 05/11/2021 documented as of this encounter (statuses as of 10/02/2022) [address]16[address]2016 History of Past illness Narrative* Problem Noted Date Diagnosed Date Resolved Date Childhood overweight, BMI 85-94.9 percentile 6 05/11/2021 documented as of this encounter (statuses as of 10/11/2022) [facility]* Problem Noted Date Diagnosed Date Resolved Date Childhood overweight, BMI 85-94.9 percentile 6 05/11/2021 documented as of this encounter (statuses as of 10/14/2022) [facility]* Problem Noted Date Diagnosed Date Resolved Date Childhood overweight, BMI 85-94.9 percentile 6 05/11/2021 documented as of this encounter (statuses as of 10/23/2022) [facility]* Problem Noted Date Diagnosed Date Resolved Date Childhood overweight, BMI 85-94.9 percentile 6 05/11/2021 documented as of this encounter (statuses as of 10/31/2022) [facility]* Problem Noted Date Diagnosed Date Resolved Date Childhood overweight, BMI 85-94.9 percentile 6 05/11/2021 documented as of this encounter (statuses as of 11/06/2022) [facility]* Problem Noted Date Diagnosed Date Resolved Date Childhood overweight, BMI 85-94.9 percentile 6 05/11/2021 documented as of this encounter (statuses as of 12/03/2022) [facility]* Problem Noted Date Diagnosed Date Resolved Date Childhood overweight, BMI 85-94.9 percentile 6 05/11/2021 documented as of this encounter (statuses as of 12/07/2022) [facility]* Problem Noted Date Diagnosed Date Resolved Date Childhood overweight, BMI 85-94.9 percentile 6 05/11/2021 documented as of this encounter (statuses as of 12/13/2022) [facility]* Problem Noted Date Diagnosed Date Resolved Date Childhood overweight, BMI 85-94.9 percentile 6 05/11/2021 documented as of this encounter (statuses as of 12/13/2022) [address]16[address]2016 History of Past illness Narrative* Problem Noted Date Diagnosed Date Resolved Date Childhood overweight, BMI 85-94.9 percentile 6 05/11/2021 documented as of this encounter (statuses as of 12/17/2022) [address]16[address]2016 History of Past illness Narrative* Problem Noted Date Diagnosed Date Resolved Date Childhood overweight, BMI 85-94.9 percentile 6 05/11/2021 documented as of this encounter (statuses as of 12/27/2022) [address]16[address]2016 History of Past illness Narrative* Problem Noted Date Diagnosed Date Resolved Date Childhood overweight, BMI 85-94.9 percentile 6 05/11/2021 documented as of this encounter (statuses as of 12/30/2022) [address]16[address]2016 History of Past illness Narrative* Problem Noted Date Diagnosed Date Resolved Date Childhood overweight, BMI 85-94.9 percentile 6 05/11/2021 documented as of this encounter (statuses as of 12/31/2022) [address]16[address]2016 History of Past illness Narrative* Problem Noted Date Diagnosed Date Resolved Date Childhood overweight, BMI 85-94.9 percentile 6 05/11/2021 documented as of this encounter (statuses as of 01/02/2023) [facility]* Problem Noted Date Diagnosed Date Resolved Date Childhood overweight, BMI 85-94.9 percentile 6 05/11/2021 documented as of this encounter (statuses as of 01/03/2023) [address]16[address]2016 History of Past illness Narrative* Problem Noted Date Diagnosed Date Resolved Date Childhood overweight, BMI 85-94.9 percentile 6 05/11/2021 documented as of this encounter (statuses as of 01/04/2023) [address]16[address]2016 History of Past illness Narrative* Problem Noted Date Diagnosed Date Resolved Date Childhood overweight, BMI 85-94.9 percentile 6 05/11/2021 documented as of this encounter (statuses as of 01/20/2023) [facility]* Problem Noted Date Diagnosed Date Resolved Date Childhood overweight, BMI 85-94.9 percentile 6 05/11/2021 documented as of this encounter (statuses as of 01/24/2023) [facility]* Problem Noted Date Diagnosed Date Resolved Date Childhood overweight, BMI 85-94.9 percentile 6 05/11/2021 documented as of this encounter (statuses as of 02/09/2023) [facility]* Problem Noted Date Diagnosed Date Resolved Date Childhood overweight, BMI 85-94.9 percentile 6 05/11/2021 documented as of this encounter (statuses as of 02/21/2023) [facility]* Problem Noted Date Diagnosed Date Resolved Date Childhood overweight, BMI 85-94.9 percentile 6 05/11/2021 documented as of this encounter (statuses as of 02/21/2023) [facility] note* Diagnosis Iron deficiency anemia due to chronic blood loss- Primary Iron deficiency anemia secondary to blood loss (chronic) Ulcerative pancolitis with rectal bleeding (HCC) Thrombocytosis Essential thrombocythemia [facility] Diagnosis Vitamin D deficiency Unspecified vitamin D deficiency [facility] Diagnosis Ulcerative pancolitis without complication (HCC)- Primary [facility] Diagnosis Ulcerative pancolitis with rectal bleeding (HCC)- Primary Elevated fecal calprotectin Other iron deficiency anemia Encounter for screening for other viral diseases [facility] Diagnosis Vitamin D deficiency Unspecified vitamin D deficiency [facility] Diagnosis Ulcerative pancolitis with rectal bleeding (HCC)- Primary [facility] Diagnosis Ulcerative pancolitis without complication (HCC)- Primary Vitamin D deficiency Unspecified vitamin D deficiency [facility] Diagnosis Vitamin D deficiency Unspecified vitamin D deficiency [facility] noteNo assessment information availableWParkview [facility] Work Phone: Evaluation note* Diagnosis Lower abdominal pain- Primary Abdominal pain, other specified site [facility] Ulcerative pancolitis with rectal bleeding (HCC)- Primary [facility] Diagnosis Moderate episode of recurrent major depressive disorder (HCC)- Primary Need for influenza vaccination Need for prophylactic vaccination and inoculation against influenza [facility]* Diagnosis Syncope, unspecified syncope type- Primary Ulcerative pancolitis without complication (HCC) Moderate episode of recurrent major depressive disorder (HCC) [facility]* Diagnosis Iron deficiency anemia due to chronic blood loss- Primary Iron deficiency anemia secondary to blood loss (chronic) Ulcerative pancolitis with rectal bleeding (HCC) Thrombocytosis Essential thrombocythemia [facility]* Diagnosis Ulcerative pancolitis with rectal bleeding (HCC)- Primary [facility]* Diagnosis Sore throat- Primary Acute pharyngitis Viral URI Acute upper respiratory infections of unspecified site [facility] Diagnosis Ulcerative pancolitis with rectal bleeding (HCC)- Primary [facility] Diagnosis Ulcerative pancolitis with rectal bleeding (HCC)- Primary Encounter for screening for other viral diseases [facility]* Diagnosis Encounter for gynecological examination (general) (routine) without abnormal findings- Primary Screening for cervical cancer Screening for malignant neoplasm of the cervix Screen for STD (sexually transmitted disease) Screening examination for venereal disease 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) [facility]* Diagnosis Iron deficiency anemia due to chronic blood loss- Primary Iron deficiency anemia secondary to blood loss (chronic) Ulcerative pancolitis with rectal bleeding (HCC) [facility]* Diagnosis Encounter for supervision of normal first in first trimester- Primary Supervision of normal first Other ulcerative colitis without complication (HCC) [facility]* Diagnosis Ulcerative pancolitis with rectal bleeding (HCC)- Primary [facility]* Diagnosis Vaginal discharge- Primary Leukorrhea, not specified as infective [facility]* Diagnosis Encounter for supervision of normal first in first trimester- Primary Supervision of normal first 12 weeks gestation of state, incidental Ulcerative colitis with complication, unspecified location (HCC) [facility]* Diagnosis Encounter for (NT) nuchal translucency scan- Primary Other specified screening Encounter for supervision of normal first in first trimester Supervision of normal first 12 weeks gestation of state, incidental documented in this encounter [facility] note* Diagnosis Iron deficiency anemia due to chronic blood loss- Primary Iron deficiency anemia secondary to blood loss (chronic) B12 deficiency Other B-complex deficiencies Anemia affecting , antepartum Ulcerative pancolitis with rectal bleeding (HCC) [facility]* Diagnosis Ulcerative pancolitis with other complication (HCC)- Primary [facility]* Diagnosis Ulcerative pancolitis without complication (HCC)- Primary [facility] [facility] Diagnosis Chest pain, unspecified type- Primary documented in this encounter [facility]* Diagnosis Tachycardia- Primary Tachycardia, unspecified Palpitations Chest pain, unspecified type Shortness of breath documented in this encounter [facility] note* Diagnosis Encounter for follow-up ultrasound of anatomy- Primary Ulcerative colitis with other complication, unspecified location (HCC) documented in this encounter [facility] note* Diagnosis Vaginal discomfort- Primary Unspecified symptom associated with female genital organs Vaginal itching Pruritus of genital organs [facility] Diagnosis 24 weeks gestation of - Primary state, incidental Encounter for supervision of normal first in second trimester Supervision of normal first Need for influenza vaccination Need for prophylactic vaccination and inoculation against influenza [facility]* Diagnosis Iron deficiency anemia due to chronic blood loss- Primary Iron deficiency anemia secondary to blood loss (chronic) Ulcerative colitis with rectal bleeding, unspecified location (HCC) [facility] Diagnosis Iron deficiency anemia due to chronic blood loss- Primary Iron deficiency anemia secondary to blood loss (chronic) Ulcerative colitis with rectal bleeding, unspecified location (HCC) [facility]* Diagnosis Abnormal glucose complicating - Primary Abnormal maternal glucose tolerance, complicating , childbirth, or the puerperium, unspecified as to episode of care documented in this encounter [facility] note* Diagnosis Iron deficiency anemia due to chronic blood loss- Primary Iron deficiency anemia secondary to blood loss (chronic) Ulcerative colitis with rectal bleeding, unspecified location (HCC) documented in this encounter [facility] note* Diagnosis Encounter for supervision of normal first in third trimester- Primary Supervision of normal first 28 weeks gestation of state, incidental Need for vaccination Need for prophylactic vaccination and inoculation against unspecified single disease Rh negative status during in third trimester Bacterial vaginitis Vaginitis and vulvovaginitis, unspecified documented in this encounter [facility] note* Diagnosis Anemia during in third trimester- Primary 32 weeks gestation of state, incidental Vaginal discharge during in third trimester Ulcerative colitis with other complication, unspecified location (HCC) documented in this encounter [facility] note* Diagnosis Encounter for ultrasound to check growth- Primary Encounter for routine screening for malformation using ultrasonics Ulcerative colitis with complication, unspecified location (HCC) 32 weeks gestation of state, incidental [facility] Diagnosis 34 weeks gestation of - Primary state, incidental Encounter for supervision of normal first in third trimester Supervision of normal first [facility]* Diagnosis 36 weeks gestation of - Primary state, incidental Encounter for supervision of normal first in third trimester Supervision of normal first Ulcerative colitis with other complication, unspecified location (HCC) documented in this encounter [facility] note* Diagnosis Encounter for ultrasound to check growth- Primary Encounter for routine screening for malformation using ultrasonics Ulcerative colitis with complication, unspecified location (HCC) 36 weeks gestation of state, incidental documented in this encounter [facility] note* Diagnosis Onset Date Resolution Status False labor before 37 completed weeks of gestation [facility] Work Phone: Evaluation note* Diagnosis Onset Date Resolution Status False labor before 37 completed weeks of gestation acute 40 weeks gestation of acute Care and examination of lactating mother acute Laceration, obstetrical, first degree acute (spontaneous vaginal delivery) [facility] Work Phone: Evaluation note* Diagnosis care and examination- Primary Routine follow-up Screening for malignant neoplasm of cervix Screening for malignant neoplasm of the cervix Special screening examination for human papillomavirus (HPV) [facility] Diagnosis Encounter for IUD insertion- Primary Encounter for insertion of intrauterine contraceptive device [facility] Diagnosis Encounter for IUD removal- Primary Encounter for removal of intrauterine contraceptive device [facility] Diagnosis Ulcerative pancolitis with rectal bleeding (HCC)- Primary Encounter for screening for other viral diseases [facility] Diagnosis Elevated alkaline phosphatase level- Primary Other nonspecific abnormal serum enzyme levels [facility] Diagnosis Elevated alkaline phosphatase level Other nonspecific abnormal serum enzyme levels [facility] Diagnosis Elevated alkaline phosphatase level- Primary Other nonspecific abnormal serum enzyme levels Ulcerative colitis with other complication, unspecified location (HCC) Screening for thyroid disorder Screening for lipid disorders [facility] Diagnosis Need for history and physical examination for employment- Primary Anxiety with depression Class 1 obesity with body mass index (BMI) of 30.0 to 30.9 in adult, unspecified obesity type, unspecified whether serious comorbidity present [facility] Diagnosis Diarrhea, unspecified type- Primary [facility] Diagnosis Ulcerative pancolitis with rectal bleeding (HCC)- Primary Bilateral lower abdominal cramping Abdominal pain, other specified site [facility]* Diagnosis Anemia, unspecified type- Primary [facility] Diagnosis B12 deficiency- Primary Other B-complex deficiencies [facility] Diagnosis Vitamin B12 deficiency- Primary Other B-complex deficiencies Folic acid deficiency Other B-complex deficiencies [facility] Diagnosis Vitamin B12 deficiency Other B-complex deficiencies Folic acid deficiency Other B-complex deficiencies [facility] Diagnosis Acute URI- Primary Acute upper respiratory infections of unspecified site [facility]* Diagnosis Iron deficiency anemia due to chronic blood loss- Primary Iron deficiency anemia secondary to blood loss (chronic) Ulcerative colitis with rectal bleeding, unspecified location (HCC) B12 deficiency Other B-complex deficiencies [facility] Diagnosis B12 deficiency- Primary Other B-complex deficiencies Elevated liver enzymes Other nonspecific abnormal serum enzyme levels Ulcerative colitis with other complication, unspecified location (HCC) Folic acid deficiency Other B-complex deficiencies Overweight with body mass index (BMI) of 25 to 25.9 in adult [facility]* Diagnosis C. difficile diarrhea- Primary Intestinal infection due to clostridium difficile Ulcerative pancolitis with rectal bleeding (HCC) [facility]* Diagnosis Loose stools- Primary Abnormal feces Nausea and vomiting, unspecified vomiting type Overweight with body mass index (BMI) of 25 to 25.9 in adult [facility]* Diagnosis Vomiting, unspecified vomiting type, unspecified whether nausea present- Primary Syncope, unspecified syncope type [facility]* Diagnosis Hypokalemia- Primary Hypopotassemia Chest tightness Other chest pain Fatigue, unspecified type Dizziness Dizziness and giddiness Iron deficiency anemia due to chronic blood loss Iron deficiency anemia secondary to blood loss (chronic) History of Clostridium difficile infection Personal history of other infectious and parasitic disease History of ulcerative colitis Personal history of other diseases of digestive system Encounter to establish care Other reasons for seeking consultation documented [facility]* Diagnosis Iron deficiency anemia due to chronic blood loss- Primary Iron deficiency anemia secondary to blood loss (chronic) B12 deficiency Other B-complex deficiencies Vitamin D deficiency Unspecified vitamin D deficiency [facility]* Diagnosis Ulcerative pancolitis with rectal bleeding (HCC)- Primary Unintentional weight loss Loss of weight Anemia, unspecified type [facility]* Diagnosis Ulcerative pancolitis with rectal bleeding (HCC)- Primary Nausea and vomiting, unspecified vomiting type [facility]* Diagnosis Ulcerative pancolitis with rectal bleeding (HCC) Anemia, unspecified type Unintentional weight loss Loss of weight [facility]* Diagnosis Encounter to establish care- Primary Other reasons for seeking consultation Encounter for immunization Need for other specified prophylactic vaccination against single bacterial disease Ulcerative colitis with complication, unspecified location (HCC) Depression, unspecified depression type [facility]* Diagnosis Elevated alkaline phosphatase level- Primary Other nonspecific abnormal serum enzyme levels [facility] Diagnosis Ulcerative colitis with complication, unspecified location (HCC)- Primary documented in this encounter [facility] note* Diagnosis Onset Date Resolution Status Admit Date Adult failure to thrive acute A ugust 2024 5:36pm Exacerbation of ulcerative colitis acute October 11, 2024 5:36pm Hypokalemia due to excessive gastrointestinal loss of potassium acute October 11, 2024 5:36pm [facility] Work Phone: History and physical note Author Magalie trevizo [facility] February 24, 2023 5:20pm Note Date/Time February 24, 2023 5:20pm [facility] Medical Records Department [address] [place] [address] OB Triage Physician Note 02/24/231717 MR#: [id number] Acct: [id number] Name: RADAH BARNES Rep #:[id number] : 2000 22 From: Deneen Koehler MD PCP: Dr. Britney Kay MD Status:REG C LI Y Location: [id number] HPI - General General Date of Service: 02/24/23 HPI Narrative RADHA BARNES, is a 22 F @ 36+ weeks who presents c/o contractions. PFSH PFSH Medical History (Updated 02/24/23 @ 17:[address] Deneen Streeter MD) Anxiety and depression Iron deficiency anemia Palpitations Shortness of breath Tachycardia Ulcerative colitis Home Medications ferrous sulfate 325 mg (65 mg iron) tablet 325 mg PO DAILY 10/25/22 [History Last Taken Unknown] vit 122-ferrous fumarate 27 mg iron-folic acid 800 mcg tablet (PrenatalMulti) 1 tab PO DAILY 10/25/22 [History Last Taken Unknown] Allergy/AdvReac Type Severity Reaction Status Date / Time No Known Allergies Allergy Verified 02/24/23 16:42 Family History (Updated 10/25/22 @ 11:16 by Carol Ann Fountain) Mother Hypertension Gluten intolerance Father Hypertension Sister Heart murmur Grandmother Heart disease Diabetes Grandfather Hypertension Heart disease Cancer Grandmother Heart disease Hypertension Grandfather Myocardial infarction, Onset Age: 52 Surgical History (Updated 10/25/22 @ 14:53 by Carol Ann Fountain) History of colonoscopy History of esophagogastroduodenoscopy (EGD) Social History (Updated 10/25/22 @ 11:11 by Carol Ann Fountain) Smoking Status: Never smoker alcohol intake: never substance use type: does not use Physical Exam Narrative Per RN- 0.5cm/thick/-3 NST FHR Rate Baby A Baseline: 135 Variability:: Moderate Accelerations:: 15 x 15 Decelerations:: None NST Reactive:: Yes FHR Category:: Category I Uterine Activity:: irregular Assessment & Plan (1) False labor before 37 completed weeks of gestation: PLAN: Plan @ 36.6 weeks gestation- false labor dc home follow up as scheduled 02/24/230 <Electronically signed by Deneen Wick MD> Date _ Deneen Streeter MD Cosigner Signature (if applicable): Date CC: M Dr. Deneen Streeter; Dr. Britney Kay MD ~ Signed [facility] Work Phone: History and physical note Author Edy Martinez [facility] Note Date/Time October 11, 2024 5:5 2pm [facility] Medical Records Department [address] [place] [address] H&P Exam - Hospitalist 10/11/24 1743 MR#: [id number] Acct: [id number] Name: RADHA BARNES Rep #:[id number] : 2000 24 From: Edy Martinez DO PCP: FELIPA WHITTINGTON Status:REG ER Location: ED HPI - General General Date of Service: 10/11/24 Chief Complaint: Abdominal pain. Hematochezia. Weight loss. HPI Narrative RADHA BARNES, is a 24 F with ulcerative colitis who presents with ongoing abdominal pain, medicated, weight loss. She did diagnosed with ulcerative colitis and has been on several rounds of steroids without any relief. She has been seeing a senior sql developer at [place] who is going to try to get her on a biologic but has not had insurance authorization yet. Despite all the steroids she has continued to get worse and lose weight. She has currently lost 40 pounds since March. In March she actually did have C. difficile colitis. [facility] Medical History Laceration, obstetrical, first degree Care and examination of lactating mother (spontaneous vaginal delivery) 40 weeks gestation of Shortness of breath Palpitations Tachycardia Iron deficiency anemia Anxiety and depression Ulcerative colitis Home Medications ?Medication ?Instructions ?Recorded ?Last Taken ?Type citalopram 10 mg tablet 10 mg PO DAILY 10/11/2406/01 History omeprazole 20 mg capsule,delayed 20 mg PO DAILY 10/10/24 History release prednisone 5 mg tablet 15 mg PO .every day ulcerati ve 10/11/24 10/10/24 History collitis Allergy/AdvReac Type Severity Reaction Status Date / Time No Known Allergies Allergy Verified 06/08/24 08:40 Family History Mother Hypertension Gluten intolerance Father Hypertension Sister Heart murmur Grandmother Heart disease Diabetes Grandfather Hypertension Heart disease Cancer Grandmother Heart disease Hypertension Grandfather Myocardial infarction, Onset Age: 52 Surgical History History of esophagogastroduodenoscopy (EGD) History of colonoscopy Social History housing: house Smoking Status: Never smoker alcohol intake: never substance use type: does not use ROS ROS Narrative All review of systems were negative except as mentioned above in the history of present illness and the other review of systems. Vital Signs Vital Signs Vital Signs: 10/11/24 13:46 10/11/24 13:48 10/11/24 13:51 Temperature 37.2 C 37.2 C Temperature Source Oral Oral Pulse Rate 194 H 158 H Respiratory Rate 18 12 Respiratory Effort Blood Pressure 105/79 130/77 H Blood Pressure Mean 87 94 Pulse Ox 100 99 Oxygen Delivery Method Room Air 10/11/24 13:51 10/11/24 14:16 10/11/24 14:30 Temperature Temperature Source Pulse Rate 120 H 120 H Respiratory Rate 18 18 Respiratory Effort Normal Non-Labored Blood Pressure 116/78 Blood Pressure Mean 90 Pulse Ox 98 98 Oxygen Delivery Method 10/11/24 15:00 10/11/24 15:30 10/11/24 16:00 Temperature Temperature Source Pulse Rate 116 H 113 H 102 H Respiratory Rate 16 24 H 20 H Respiratory Effort Blood Pressure 120/76 119/79 116/80 Blood Pressure Mean 90 92 92 Pulse Ox 99 96 98 Oxygen Delivery Method Room Air Room Air 10/11/24 16:30 10/11/24 16:59 10/11/24 17:00 Temperature 37.0 C Temperature Source Pulse Rate 100 103 H 105 H Respiratory Rate 18 18 18 Respiratory Effort Blood Pressure 121/81 H 120/74 120/82 H Blood Pressure Mean 94 89 94 Pulse Ox 99 98 99 Oxygen Delivery Method Room Air Room Air 10/11/24 17:30 Temperature Temperature Source Pulse Rate 108 H Respiratory Rate 18 Respiratory Effort Blood Pressure 120/76 Blood Pressure Mean 90 Pulse Ox 100 Oxygen Delivery Method Room Air Weight Weight: 44.906 kg Body Mass Index (BMI) 18.7 Physical Exam Const alert Constitutional Narrative: Lying in bed. Pale. Afebrile. Nontoxic. HEENT normocephalic and head/scalp atraumatic Resp normal respiratory effort, no retractions, no use of accessory muscles and clearto auscultation bilaterally Cardio regular rate, regular rhythm, S1 normal heart sound and S2 normal heart sound GI normal to inspection, nondistended, normoactive bowel sounds and soft to palpation GI Narrative: Tender but not distended. Extremity normal to inspection and no clubbing, cyanosis or edema Neuro Sensorium / Orientation: awake and alert Psych Psych Narrative: Flat affect Results Lab / Micro Data 10/11/24 13:58 10/11/24 13:58 Labs: Laboratory Results - last 24 hr 10/11/24 13:58: WBC 17.5 H, RBC 4.13 L, Hgb 11.7 L, Hct 36.3 L, MCV 87.9, MCH 28.3, MCHC 32.2, RDW Std Deviation 45.4 H, RDW Coeff of Neville 14.2, Plt Count 963 H*, MPV 8.4, Immature Gran % (Auto) 0.700, Neut % (Auto) 77.1 H, Lymph % (Auto) 15.2 L, Nelson % (Auto) 6.2, Eos % (Auto) 0.1, Baso % (Auto) 0.7, Absolute Neuts (auto) 13.5 H, Absolute Lymphs (auto) 2.66, Nucleated RBC % 0, Differential Comment , Diff Path Review May foll, Atypical Lymphocytes RARE, Reactive Lymphocytes 1+, Platelet Estimate MKD INC, Sodium 136, Potassium 3.0 L, [id number] L, Carbon Dioxide 28.1, Anion Gap 12, BUN 5, Creatinine 0.45 L, Estim Creat Clear Calc 137.84, Est GFR (MDRD) Non-Af 139, BUN/Creatinine Ratio 10.5, Aymigtt93, Calcium 8.2, Total Bilirubin 0.34, AST 16, ALT 7, Alkaline Phosphatase 211 H, Total Protein 5.9, Albumin 2.4 L, Globulin 3.4, Albumin/Globulin Ratio 0.7 L, Lipase 5 L 10/11/24 15:40: Lactic Acid 1.1 Assessment & Plan Assessment/Plan (1) Exacerbation of ulcerative colitis: PLAN: Through [facility] patient had a CAT scan performed on the that showedfindings consistent with active pancolitis, including diffuse colonic wall thickening, pericolonic stranding and prominent vasa recta. No pneumatosis, free air or megacolon. She did have an ultrasound on the but results have not been released. The emergency room doctor spoke with gastroenterology over [facility] who recommended endoscopy as well as high-dose steroids. They are trying to get biologic agents for the patient but has not been approved yet by insurance company. Family requesting to see if we can get approval for those medications while she is here. C. difficile ordered. Patient does have a history of C. difficile back in March. Though this seems more likely consistent with UC flare will need to also rule out an active C. difficile. She did have C. difficile performed through the [facility] on the but those results are not available through Dr. Johnson at this time. Patient did receive 125 mg of methadone prednisolone in the emergency room. Will continue with 40 IV 3 times daily. Consult GI for evaluation for endoscopy. Dr. Love was contacted by the emergency room physician. If her condition acutely worsens, then would recommend repeating CAT scan. (2) Adult failure to thrive: PLAN: Patient has lost 40 pounds since April. Due to the flareup of her UC flare. (3) Hypokalemia due to excessive gastrointestinal loss of potassium: PLAN: Secondary to GI losses. Did replace in the emergency room. Will continueto monitor follow-up magnesium. . PLAN: Plan VTE prophylaxis with SCDs. Discussed with the patient's family at bedside. Charges/Coding Visit Charges Inpatient E&M: 47905 Init Hosp L3 10/11/241751 <Electronically signed by Edy Martinez DO> Cosigner Signature (if applicable): CC: Dr. Edy Martinez DO; FELIPA WHITTINGTON~ Signed ADDENDUM by Dr. Edy Martinez DO on 10/11/24 at 1752 Addendum For severe protein calorie malnutrition: Clear liquid diet for now but will haveEnsure clear. Nutrition consult for further recommendations 10/11/241751<Electronically signed by Edy Martinez DO> Cosigner Signature (if applicable): cc: Dr. Edy Martinez DO; FELIPA WHITTINGTON ~* Signed [facility] Work Phone: Hospital Discharge instructions Additional Instructions Please ensure you follow-up with your UC doctor this upcoming week.[facility] Work Phone: Reason for referral (narrative)* Outpatient Procedure (Routine) - Authorized Specialty Diagnoses / Procedures Referred By Caroline t Referred To Contact [facility] Diagnoses Ulcerative pancolitis with rectal bleeding (HCC) Procedures COLONOSCOPY DIAGNOSTIC COLONOSCOPY FLX DX W/COLLJ SPEC WHEN PFRMD Giana Arceo PA-C [address] [address] [facility] [place] [address] [place] [address] Referral ID Status Reason Start Date Expiration Date Visits Requested Visits Authorized [id number] Authorized Auto-Generat ed Referral 06/10/2022 06/11/2023 1 1 [facility] for referral (narrative)* Diagnostic Procedure Only (Routine) - Authorized Specialty Diagnoses / Procedures Referred By Dorotaac t Referred To Contact [facility] Diagnoses Encounter for supervision of normal first in first trimester Procedures NUCHAL TRANSLUCENCY WHI US NUCHAL TRANSLUCENCY 1ST GESTATION Dora Tamayo MD [address] [place] [address] [facility] [place] [address] Referral ID Status Reason Start Date Expiration Date Visits Requested Visits Authorized [id number] Authorized Auto-Generat ed Referral 08/06/2022 08/06/2023 1 1 [facility] for referral (narrative)* Diagnostic Procedure Only (Routine) - Authorized Specialty Diagnoses / Procedures Referred By Dorotaac t Referred To Contact [facility] Diagnoses Encounter for follow-up ultrasound of anatomy Procedures OBSTETRIC ULTRASOUND WHI US PREG UTERUS AFTER 1ST TRIMEST 1 GESTATION Dora Tamayo MD [address] [place] [address] [facility] [place] [address] Referral ID Status Reason Start Date Expiration Date Visits Requested Visits Authorized [id number] Authorized Auto-Generat ed Referral 11/05/2022 11/05/2023 1 1 [facility] for referral (narrative)* Outpatient Procedure (Routine) - Pending Review Specialty Diagnoses / Procedures Referred By Contac t Referred To [facility] Diagnoses Encounter for IUD insertion Procedures INSERT INTRAUTERINE DEVICE INSERT INTRAUTERINE DEVICE Dora Tamayo MD [address] [place] [address] [facility] [place] [address] Referral ID Status Reason Start Date Expiration Date Visits Requested Visits Authorized [id number] Pending Review Auto-Generat ed Referral 05/27/2023 05/26/2024 1 1 [facility] for referral (narrative)* Outpatient Procedure (Routine) - Pending Review Specialty Diagnoses / Procedures Referred By Contac t Referred To Contact [facility] Diagnoses Encounter for IUD removal Procedures REMOVE INTRAUTERINE DEVICE REMOVE INTRAUTERINE DEVICE Dora Tamayo MD [address] [place] [address] [facility] [address] [place] [address] Referral ID Status Reason Start Date Expiration Date Visits Requested Visits Authorized [id number] Pending Review Auto-Generat ed Referral 08/22/2023 08/19/2024 1 1 [facility] for referral (narrative)* Diagnostic Procedure Only (Routine) - New Request Specialty Diagnoses / Procedures Referred By Contac t Referred To Contact [facility] Diagnoses Elevated alkaline phosphatase level Procedures US ABD RIGHT UPPER QUADRANT US ABDOMINAL REAL TIME W/IMAGE LIMITED Giana Arceo PA-C [address] [place] [address] [place] [address] Referral ID Status Reason Start Date Expiration Date Visits Requested Visits Authorized [id number] New Request Auto-Generat ed Referral 09/21/2023 10/20/2024 1 1 [facility] for referral (narrative)* Diagnostic Procedure Only (Routine) - Closed Specialty Diagnoses / Procedures Referred By Contac t Referred To Contact [facility] Diagnoses Elevated alkaline phosphatase level Procedures US ABD RIGHT UPPER QUADRANT US ABDOMINAL REAL TIME W/IMAGE LIMITED Giana Arceo PA-C [address] [place] [address] [place] [address] Referral ID Status Reason Start Date Expiration Date V isits Requested Visits Authorized [id number] Closed Auto-Generate d Referral 09/21/2023 10/20/2024 1 1 [facility] for referral (narrative)No reason for referral information [facility] Phone: Reason for visit Narrative* Diagnostic Procedure Only (Routine) - Closed Specialty Diagnoses / Procedures Referred By Contac t Referred To Contact [facility] Diagnoses Elevated alkaline phosphatase level Procedures US ABD RIGHT UPPER QUADRANT US ABDOMINAL REAL TIME W/IMAGE LIMITED Giana Arceo PA-C [address] [facility] [place] [address] [place] [address] Referral ID Status Reason Start Date Expiration Date V isits Requested Visits Authorized [id number] Closed Auto-Generate d Referral 09/21/2023 10/20/2024 1 1 [facility] for visit Narrative* MRI/CT (Routine) - Closed Specialty Diagnoses / Procedures Referred By Contac t Referred To Contact [facility] Diagnoses Ulcerative pancolitis with rectal bleeding (HCC) Anemia, unspecified type Unintentional weight loss Procedures CT ABD/PEL W IVCON CT ABD & PELVIS W/CONTRAST Karolina Yu, 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.[employer] [address] [place] [address] Phone: tel: fax: [place] [address] Referral ID Status Reason Start Date Expiration Date V isits Requested Visits Authorized [id number] Closed Auto-Generate d Referral 09/17/2024 10/17/2025 1 1 [facility] Summary Purpose Family History Relationship Condition Age at Onset Recorded Date/T cody mother Hypertension Unknown Gluten intolerance Unknown father Hypertension Unknown sister Heart murmur Unknown grandmother Cardiac disease Unknown Diabetes mellitus Unknown grandfather Hypertension Unknown Cardiac disease Unknown Malignant neoplasm Unknown Hypertension Unknown grandfather Myocardial infarction 53 Advance Directives Documents on File Type Date Recorded Patient Rolled Ham Lacer Expl anation Advance Directive(s) Advance Directive(s) 12/08/2020 10:07 AM Advance Directive Response Recorded Date/ Time Living Will No December 16 12:22pm Power of Workers Compensation Legal Secretary No October 9th, 2 022 12:22pm Advance Directive Response Recorded Date/ Time Living Will No October 14, 2022 11:25am Power of Workers Compensation Legal Secretary No October 14 11:25am Advance Directive Response Recorded Date/ Time Living Will No October 14, 2022 10:25am Power of Workers Compensation Legal Secretary No October 14 10:25am Advance Directive Response Recorded Date/ Time Living Will No March 18 5:01am Power of Workers Compensation Legal Secretary No March 18, 024 5:01am Advance Directive Response Recorded Date/ Time Living Will No June 08, 2024 8:51am Do you have a Healthcare Power of Workers Compensation Legal Secretary? No June 08, 2024 8:51am Advance Directive Response Recorded Date/ Time Do you have a Healthcare Power of Workers Compensation Legal Secretary? No October 11, 2024 1:51pm Chief Complaint and Reason for Visit Chief Complaint abd pain Chief Complaint CHEST PAIN Chief Complaint RULE OUT LABOR Reason for Visit False labor before 3 7 completed weeks of gestation Chief Complaint RULE OUT LABOR VAGINAL DELIVERY Reason for Visit False labor before 3 7 completed weeks of gestation 40 weeks gestation of Care and examination of lactating mother Laceration, obstetrical, first degree (spontaneous vaginal delivery) Chief Complaint Admit Date abd pain, nausea June 08, 2024 8:40 am Chief Complaint Admit Date UC FLARE October 11, 2024 5:3 6pm UC FLARE October 11, 2024 5:4 3pm Reason for Visit Admit Date Adult failure to thrive October 11, 2024 5:36pm Exacerbation of ulcerative colitis Augus t 2024 5:36pm Hypokalemia due to excessive gastrointestinal loss of potassium October 11, 2024 5:36pm Health Concerns Problem Noted Date [facility] - [facility] 07/10 [place] - [place] 08/06/2022 Problem Noted Date [facility] - [facility] 07/10 [place] - [place] 08/06/2022 Problem Noted Date [facility] - [facility] 07/10 [place] - [place] 08/06/2022 Problem Noted Date [facility] - [facility] 07/10 [place] - [place] 08/06/2022 Problem Noted Date [facility] - [facility] 07/10 [place] - [place] 08/06/2022 Problem Noted Date [facility] - [facility] 07/10 [place] - [place] 08/06/2022 Problem Noted Date [facility] - [facility] 07/10 [place] - [place] 08/06/2022 Problem Noted Date [facility] - [facility] 07/10 Education - [place] 08/06/2022 Problem Noted Date [facility] - [facility] 07/10 Education - [place] 08/06/2022 Problem Noted Date Diagnosed Date [facility] - [facility] 08/06/2022 [place] - [place] 08/06/2022 Problem Noted Date Diagnosed Date [facility] - [facility] 08/06/2022 [place] - [place] 08/06/2022 Problem Noted Date Diagnosed Date [facility] - [facility] 08/06/2022 Education - [place] 08/06/2022 Problem Noted Date Diagnosed Date [facility] - [facility] 08/06/2022 Education - [place] 08/06/2022 Problem Noted Date Diagnosed Date [facility] - [facility] 08/06/2022 Education - [place] 08/06/2022 Problem Noted Date Diagnosed Date [facility] - [facility] 08/06/2022 Education - [place] 08/06/2022 Problem Noted Date Diagnosed Date [facility] - [facility] 08/06/2022 Education - [place] 08/06/2022 Problem Noted Date Diagnosed Date [facility] - [facility] 08/06/2022 Education - [place] 08/06/2022 Problem Noted Date Diagnosed Date [facility] - [facility] 08/06/2022 Education - [place] 08/06/2022 Problem Noted Date Diagnosed Date [facility] - [facility] 08/06/2022 Education - [place] 08/06/2022 Problem Noted Date Diagnosed Date [facility] - [facility] 08/06/2022 Education - [place] 08/06/2022 Problem Noted Date Diagnosed Date [facility] - [facility] 08/06/2022 Education - [place] 08/06/2022 Problem Noted Date Diagnosed Date [facility] - [facility] 08/06/2022 Education - [place] 08/06/2022 Problem Noted Date Diagnosed Date [facility] - [facility] 08/06/2022 Education - [place] 08/06/2022 Problem Noted Date Diagnosed Date [facility] - [facility] 08/06/2022 Education - [place] 08/06/2022 Problem Noted Date Diagnosed Date [facility] - [facility] 08/06/2022 [place] - [place] 08/06/2022 Reason for Referral Specialty Diagnoses / Procedures Referred By Contac t Referred To Contact Diagnoses Encounter for supervision of normal first in first trimester 12 weeks gestation of Ulcerative colitis with complication, unspecified location (HCC) Procedures CONSULT TO MATERNAL MEDI OFFICE/OUTPATIENT [facility] [place] 60-74 MINUTES Dora Tamayo MD [address] [place] [address] Referral ID Status Reason Start Date Expiration Date Visits Requested Visits Authorized [id number] Authorized PCP Requested Referral Auto-Generate d Referral 09/03/2022 09/03/2023 1 1 Specialty Diagnoses / Procedures Referred By Contac t Referred To Contact [facility] Diagnoses Ulcerative colitis with complication, unspecified location (HCC) Procedures OBSTETRIC ULTRASOUND WHI US PREG UTERUS AFTER 1ST TRIMEST GESTATION Dora Tamayo MD [address] [place] [address] [facility] [address] [place] [address] Referral ID Status Reason Start Date Expiration Date Visits Requested Visits Authorized [id number] Authorized Auto-Generat ed Referral 09/03/2022 09/03/2023 1 1 Specialty Diagnoses / Procedures Referred By Contac t Referred To Contact Hematology Diagnoses Vitamin B12 deficiency Folic acid deficiency Procedures CONSULT TO HEMATOLOGY OFFICE/OUTPATIENT [facility] [place] [place] 60 MINUTES Desire Moyer DO [address] [place] [id number] Referral ID Status Reason Start Date Expiration Date Visits Requested Visits Authorized [id number] Authorized PCP Requested Referral 04/05/2024 04/05/2025 1 1 Medications Administered Section Inactive Administered [...] over 90 Minutes, ONCE, 1 dose, On 12/16/22 at 1430, Please conduct a 30 minute [...] ized section and content) DATE CREATED AUTHOR 10/16/2019 [facility] DATE CREATED AUTHOR AUTHOR'S ORGANIZ ATION 2024 [facility] DATE CREATED AUTHOR AUTHOR'S ORGANIZ ATION 06/15/2024 [facility] DATE CREATED AUTHOR AUTHOR'S ORGANIZ ATION 10/09/2024 [facility] Source Comments (unrecognize d section and content) In the event this informatio n is protected by the Federal Confidentiality of Alcohol and Drug Abuse Patient Records regulations: The Federal rules restrict any use of the information to criminally investigate or prosecute any alcohol or drug abuse patient.[facility] the event this information is protected by the Federal Confidentiality of Alcohol and Drug Abuse Patient Records regulations: The Federal rules restrict any use of the information to criminally investigate or prosecute any alcohol or drug abuse patient.[facility] HospitalIn the event this information is protected by the Federal Confidentiality of Alcohol and Drug Abuse Patient Records regulations: The Federal rules restrict any use of the information to criminally investigate or prosecute any alcohol or drug abuse patient.[facility] HospitalIn the event this information is protected by the Federal Confidentiality of Alcohol and Drug Abuse Patient Records regulations: The Federal rules restrict any use of the information to criminally investigate or prosecute any alcohol or drug abuse patient.[facility] HospitalIn the event this information is protected by the Federal Confidentiality of Alcohol and Drug Abuse Patient Records regulations: The Federal rules restrict any use of the information to criminally investigate or prosecute any alcohol or drug abuse patient.[facility] HospitalIn the event this information is protected by the Federal Confidentiality of Alcohol and Drug Abuse Patient Records regulations: The Federal rules restrict any use of the information to criminally investigate or prosecute any alcohol or drug abuse patient.[facility] HospitalIn the event this information is protected by the Federal Confidentiality of Alcohol and Drug Abuse Patient Records regulations: The Federal rules restrict any use of the information to criminally investigate or prosecute any alcohol or drug abuse patient.[facility] HospitalIn the event this information is protected by the Federal Confidentiality of Alcohol and Drug Abuse Patient Records regulations: The Federal rules restrict any use of the information to criminally investigate or prosecute any alcohol or drug abuse patient.[facility] HospitalIn the event this information is protected by the Federal Confidentiality of Alcohol and Drug Abuse Patient Records regulations: The Federal rules restrict any use of the information to criminally investigate or prosecute any alcohol or drug abuse patient.[facility] HospitalIn the event this information is protected by the Federal Confidentiality of Alcohol and Drug Abuse Patient Records regulations: The Federal rules restrict any use of the information to criminally investigate or prosecute any alcohol or drug abuse patient.[facility] HospitalIn the event this information is protected by the Federal Confidentiality of Alcohol and Drug Abuse Patient Records regulations: The Federal rules restrict any use of the information to criminally investigate or prosecute any alcohol or drug abuse patient.[facility] HospitalIn the event this information is protected by the Federal Confidentiality of Alcohol and Drug Abuse Patient Records regulations: The Federal rules restrict any use of the information to criminally investigate or prosecute any alcohol or drug abuse patient.[facility] HospitalIn the event this information is protected by the Federal Confidentiality of Alcohol and Drug Abuse Patient Records regulations: The Federal rules restrict any use of the information to criminally investigate or prosecute any alcohol or drug abuse patient.[facility] HospitalIn the event this information is protected by the Federal Confidentiality of Alcohol and Drug Abuse Patient Records regulations: The Federal rules restrict any use of the information to criminally investigate or prosecute any alcohol or drug abuse patient.[facility] HospitalIn the event this information is protected by the Federal Confidentiality of Alcohol and Drug Abuse Patient Records regulations: The Federal rules restrict any use of the information to criminally investigate or prosecute any alcohol or drug abuse patient.[facility] HospitalIn the event this information is protected by the Federal Confidentiality of Alcohol and Drug Abuse Patient Records regulations: The Federal rules restrict any use of the information to criminally investigate or prosecute any alcohol or drug abuse patient.[facility] HospitalIn the event this information is protected by the Federal Confidentiality of Alcohol and Drug Abuse Patient Records regulations: The Federal rules restrict any use of the information to criminally investigate or prosecute any alcohol or drug abuse patient.[facility] HospitalIn the event this information is protected by the Federal Confidentiality of Alcohol and Drug Abuse Patient Records regulations: The Federal rules restrict any use of the information to criminally investigate or prosecute any alcohol or drug abuse patient.[facility] HospitalIn the event this information is protected by the Federal Confidentiality of Alcohol and Drug Abuse Patient Records regulations: The Federal rules restrict any use of the information to criminally investigate or prosecute any alcohol or drug abuse patient.[facility] HospitalIn the event this information is protected by the Federal Confidentiality of Alcohol and Drug Abuse Patient Records regulations: The Federal rules restrict any use of the information to criminally investigate or prosecute any alcohol or drug abuse patient.[facility] HospitalIn the event this information is protected by the Federal Confidentiality of Alcohol and Drug Abuse Patient Records regulations: The Federal rules restrict any use of the information to criminally investigate or prosecute any alcohol or drug abuse patient.[facility] HospitalIn the event this information is protected by the Federal Confidentiality of Alcohol and Drug Abuse Patient Records regulations: The Federal rules restrict any use of the information to criminally investigate or prosecute any alcohol or drug abuse patient.[facility] HospitalIn the event this information is protected by the Federal Confidentiality of Alcohol and Drug Abuse Patient Records regulations: The Federal rules restrict any use of the information to criminally investigate or prosecute any alcohol or drug abuse patient.[facility] HospitalIn the event this information is protected by the Federal Confidentiality of Alcohol and Drug Abuse Patient Records regulations: The Federal rules restrict any use of the information to criminally investigate or prosecute any alcohol or drug abuse patient.[facility] HospitalIn the event this information is protected by the Federal Confidentiality of Alcohol and Drug Abuse Patient Records regulations: The Federal rules restrict any use of the information to criminally investigate or prosecute any alcohol or drug abuse patient.[facility] HospitalIn the event this information is protected by the Federal Confidentiality of Alcohol and Drug Abuse Patient Records regulations: The Federal rules restrict any use of the information to criminally investigate or prosecute any alcohol or drug abuse patient.[facility] HospitalIn the event this information is protected by the Federal Confidentiality of Alcohol and Drug Abuse Patient Records regulations: The Federal rules restrict any use of the information to criminally investigate or prosecute any alcohol or drug abuse patient.[facility] HospitalIn the event this information is protected by the Federal Confidentiality of Alcohol and Drug Abuse Patient Records regulations: The Federal rules restrict any use of the information to criminally investigate or prosecute any alcohol or drug abuse patient.[facility] HospitalIn the event this information is protected by the Federal Confidentiality of Alcohol and Drug Abuse Patient Records regulations: The Federal rules restrict any use of the information to criminally investigate or prosecute any alcohol or drug abuse patient.[facility] HospitalIn the event this information is protected by the Federal Confidentiality of Alcohol and Drug Abuse Patient Records regulations: The Federal rules restrict any use of the information to criminally investigate or prosecute any alcohol or drug abuse patient.[facility] HospitalIn the event this information is protected by the Federal Confidentiality of Alcohol and Drug Abuse Patient Records regulations: The Federal rules restrict any use of the information to criminally investigate or prosecute any alcohol or drug abuse patient.[facility] HospitalIn the event this information is protected by the Federal Confidentiality of Alcohol and Drug Abuse Patient Records regulations: The Federal rules restrict any use of the information to criminally investigate or prosecute any alcohol or drug abuse patient.[facility] the event this information is protected by the Federal Confidentiality of Alcohol and Drug Abuse Patient Records regulations: The Federal rules restrict any use of the information to criminally investigate or prosecute any alcohol or drug abuse patient.[facility] HospitalIn the event this information is protected by the Federal Confidentiality of Alcohol and Drug Abuse Patient Records regulations: The Federal rules restrict any use of the information to criminally investigate or prosecute any alcohol or drug abuse patient.[facility] HospitalIn the event this information is protected by the Federal Confidentiality of Alcohol and Drug Abuse Patient Records regulations: The Federal rules restrict any use of the information to criminally investigate or prosecute any alcohol or drug abuse patient.[facility] HospitalIn the event this information is protected by the Federal Confidentiality of Alcohol and Drug Abuse Patient Records regulations: The Federal rules restrict any use of the information to criminally investigate or prosecute any alcohol or drug abuse patient.[facility] HospitalIn the event this information is protected by the Federal Confidentiality of Alcohol and Drug Abuse Patient Records regulations: The Federal rules restrict any use of the information to criminally investigate or prosecute any alcohol or drug abuse patient.[facility] HospitalIn the event this information is protected by the Federal Confidentiality of Alcohol and Drug Abuse Patient Records regulations: The Federal rules restrict any use of the information to criminally investigate or prosecute any alcohol or drug abuse patient.[facility] HospitalIn the event this information is protected by the Federal Confidentiality of Alcohol and Drug Abuse Patient Records regulations: The Federal rules restrict any use of the information to criminally investigate or prosecute any alcohol or drug abuse patient.[facility] HospitalIn the event this information is protected by the Federal Confidentiality of Alcohol and Drug Abuse Patient Records regulations: The Federal rules restrict any use of the information to criminally investigate or prosecute any alcohol or drug abuse patient.[facility] HospitalIn the event this information is protected by the Federal Confidentiality of Alcohol and Drug Abuse Patient Records regulations: The Federal rules restrict any use of the information to criminally investigate or prosecute any alcohol or drug abuse patient.[facility] HospitalIn the event this information is protected by the Federal Confidentiality of Alcohol and Drug Abuse Patient Records regulations: The Federal rules restrict any use of the information to criminally investigate or prosecute any alcohol or drug abuse patient.[facility] HospitalIn the event this information is protected by the Federal Confidentiality of Alcohol and Drug Abuse Patient Records regulations: The Federal rules restrict any use of the information to criminally investigate or prosecute any alcohol or drug abuse patient.[facility] HospitalIn the event this information is protected by the Federal Confidentiality of Alcohol and Drug Abuse Patient Records regulations: The Federal rules restrict any use of the information to criminally investigate or prosecute any alcohol or drug abuse patient.[facility] HospitalIn the event this information is protected by the Federal Confidentiality of Alcohol and Drug Abuse Patient Records regulations: The Federal rules restrict any use of the information to criminally investigate or prosecute any alcohol or drug abuse patient.[facility] HospitalIn the event this information is protected by the Federal Confidentiality of Alcohol and Drug Abuse Patient Records regulations: The Federal rules restrict any use of the information to criminally investigate or prosecute any alcohol or drug abuse patient.[facility] HospitalIn the event this information is protected by the Federal Confidentiality of Alcohol and Drug Abuse Patient Records regulations: The Federal rules restrict any use of the information to criminally investigate or prosecute any alcohol or drug abuse patient.[facility] HospitalIn the event this information is protected by the Federal Confidentiality of Alcohol and Drug Abuse Patient Records regulations: The Federal rules restrict any use of the information to criminally investigate or prosecute any alcohol or drug abuse patient.[facility] HospitalIn the event this information is protected by the Federal Confidentiality of Alcohol and Drug Abuse Patient Records regulations: The Federal rules restrict any use of the information to criminally investigate or prosecute any alcohol or drug abuse patient.[facility] HospitalIn the event this information is protected by the Federal Confidentiality of Alcohol and Drug Abuse Patient Records regulations: The Federal rules restrict any use of the information to criminally investigate or prosecute any alcohol or drug abuse patient.[facility] HospitalIn the event this information is protected by the Federal Confidentiality of Alcohol and Drug Abuse Patient Records regulations: The Federal rules restrict any use of the information to criminally investigate or prosecute any alcohol or drug abuse patient.[facility] HospitalIn the event this information is protected by the Federal Confidentiality of Alcohol and Drug Abuse Patient Records regulations: The Federal rules restrict any use of the information to criminally investigate or prosecute any alcohol or drug abuse patient.[facility] HospitalIn the event this information is protected by the Federal Confidentiality of Alcohol and Drug Abuse Patient Records regulations: The Federal rules restrict any use of the information to criminally investigate or prosecute any alcohol or drug abuse patient.[facility] HospitalIn the event this information is protected by the Federal Confidentiality of Alcohol and Drug Abuse Patient Records regulations: The Federal rules restrict any use of the information to criminally investigate or prosecute any alcohol or drug abuse patient.[facility] HospitalIn the event this information is protected by the Federal Confidentiality of Alcohol and Drug Abuse Patient Records regulations: The Federal rules restrict any use of the information to criminally investigate or prosecute any alcohol or drug abuse patient.[facility] HospitalIn the event this information is protected by the Federal Confidentiality of Alcohol and Drug Abuse Patient Records regulations: The Federal rules restrict any use of the information to criminally investigate or prosecute any alcohol or drug abuse patient.[facility] HospitalIn the event this information is protected by the Federal Confidentiality of Alcohol and Drug Abuse Patient Records regulations: The Federal rules restrict any use of the information to criminally investigate or prosecute any alcohol or drug abuse patient.[facility] HospitalIn the event this information is protected by the Federal Confidentiality of Alcohol and Drug Abuse Patient Records regulations: The Federal rules restrict any use of the information to criminally investigate or prosecute any alcohol or drug abuse patient.[facility] HospitalIn the event this information is protected by the Federal Confidentiality of Alcohol and Drug Abuse Patient Records regulations: The Federal rules restrict any use of the information to criminally investigate or prosecute any alcohol or drug abuse patient.[facility] HospitalIn the event this information is protected by the Federal Confidentiality of Alcohol and Drug Abuse Patient Records regulations: The Federal rules restrict any use of the information to criminally investigate or prosecute any alcohol or drug abuse patient.[facility] HospitalIn the event this information is protected by the Federal Confidentiality of Alcohol and Drug Abuse Patient Records regulations: The Federal rules restrict any use of the information to criminally investigate or prosecute any alcohol or drug abuse patient.[facility] HospitalIn the event this information is protected by the Federal Confidentiality of Alcohol and Drug Abuse Patient Records regulations: The Federal rules restrict any use of the information to criminally investigate or prosecute any alcohol or drug abuse patient.[facility] HospitalIn the event this information is protected by the Federal Confidentiality of Alcohol and Drug Abuse Patient Records regulations: The Federal rules restrict any use of the information to criminally investigate or prosecute any alcohol or drug abuse patient.[facility] HospitalIn the event this information is protected by the Federal Confidentiality of Alcohol and Drug Abuse Patient Records regulations: The Federal rules restrict any use of the information to criminally investigate or prosecute any alcohol or drug abuse patient.[facility] HospitalIn the event this information is protected by the Federal Confidentiality of Alcohol and Drug Abuse Patient Records regulations: The Federal rules restrict any use of the information to criminally investigate or prosecute any alcohol or drug abuse patient.[facility] HospitalIn the event this information is protected by the Federal Confidentiality of Alcohol and Drug Abuse Patient Records regulations: The Federal rules restrict any use of the information to criminally investigate or prosecute any alcohol or drug abuse patient.[facility] HospitalIn the event this information is protected by the Federal Confidentiality of Alcohol and Drug Abuse Patient Records regulations: The Federal rules restrict any use of the information to criminally investigate or prosecute any alcohol or drug abuse patient.[facility] HospitalIn the event this information is protected by the Federal Confidentiality of Alcohol and Drug Abuse Patient Records regulations: The Federal rules restrict any use of the information to criminally investigate or prosecute any alcohol or drug abuse patient.[facility] HospitalIn the event this information is protected by the Federal Confidentiality of Alcohol and Drug Abuse Patient Records regulations: The Federal rules restrict any use of the information to criminally investigate or prosecute any alcohol or drug abuse patient.[facility] HospitalIn the event this information is protected by the Federal Confidentiality of Alcohol and Drug Abuse Patient Records regulations: The Federal rules restrict any use of the information to criminally investigate or prosecute any alcohol or drug abuse patient.[facility] HospitalIn the event this information is protected by the Federal Confidentiality of Alcohol and Drug Abuse Patient Records regulations: The Federal rules restrict any use of the information to criminally investigate or prosecute any alcohol or drug abuse patient.[facility] HospitalIn the event this information is protected by the Federal Confidentiality of Alcohol and Drug Abuse Patient Records regulations: The Federal rules restrict any use of the information to criminally investigate or prosecute any alcohol or drug abuse patient.[facility] HospitalIn the event this information is protected by the Federal Confidentiality of Alcohol and Drug Abuse Patient Records regulations: The Federal rules restrict any use of the information to criminally investigate or prosecute any alcohol or drug abuse patient.[facility] HospitalIn the event this information is protected by the Federal Confidentiality of Alcohol and Drug Abuse Patient Records regulations: The Federal rules restrict any use of the information to criminally investigate or prosecute any alcohol or drug abuse patient.[facility] HospitalIn the event this information is protected by the Federal Confidentiality of Alcohol and Drug Abuse Patient Records regulations: The Federal rules restrict any use of the information to criminally investigate or prosecute any alcohol or drug abuse patient.[facility] HospitalIn the event this information is protected by the Federal Confidentiality of Alcohol and Drug Abuse Patient Records regulations: The Federal rules restrict any use of the information to criminally investigate or prosecute any alcohol or drug abuse patient.[facility] HospitalIn the event this information is protected by the Federal Confidentiality of Alcohol and Drug Abuse Patient Records regulations: The Federal rules restrict any use of the information to criminally investigate or prosecute any alcohol or drug abuse patient.[facility] HospitalIn the event this information is protected by the Federal Confidentiality of Alcohol and Drug Abuse Patient Records regulations: The Federal rules restrict any use of the information to criminally investigate or prosecute any alcohol or drug abuse patient.[facility] HospitalIn the event this information is protected by the Federal Confidentiality of Alcohol and Drug Abuse Patient Records regulations: The Federal rules restrict any use of the information to criminally investigate or prosecute any alcohol or drug abuse patient.[facility] HospitalIn the event this information is protected by the Federal Confidentiality of Alcohol and Drug Abuse Patient Records regulations: The Federal rules restrict any use of the information to criminally investigate or prosecute any alcohol or drug abuse patient.[facility] HospitalIn the event this information is protected by the Federal Confidentiality of Alcohol and Drug Abuse Patient Records regulations: The Federal rules restrict any use of the information to criminally investigate or prosecute any alcohol or drug abuse patient.[facility] HospitalIn the event this information is protected by the Federal Confidentiality of Alcohol and Drug Abuse Patient Records regulations: The Federal rules restrict any use of the information to criminally investigate or prosecute any alcohol or drug abuse patient.[facility] the event this information is protected by the Federal Confidentiality of Alcohol and Drug Abuse Patient Records regulations: The Federal rules restrict any use of the information to criminally investigate or prosecute any alcohol or drug abuse patient.[facility] HospitalIn the event this information is protected by the Federal Confidentiality of Alcohol and Drug Abuse Patient Records regulations: The Federal rules restrict any use of the information to criminally investigate or prosecute any alcohol or drug abuse patient.[facility] HospitalIn the event this information is protected by the Federal Confidentiality of Alcohol and Drug Abuse Patient Records regulations: The Federal rules restrict any use of the information to criminally investigate or prosecute any alcohol or drug abuse patient.[facility] HospitalIn the event this information is protected by the Federal Confidentiality of Alcohol and Drug Abuse Patient Records regulations: The Federal rules restrict any use of the information to criminally investigate or prosecute any alcohol or drug abuse patient.[facility] HospitalIn the event this information is protected by the Federal Confidentiality of Alcohol and Drug Abuse Patient Records regulations: The Federal rules restrict any use of the information to criminally investigate or prosecute any alcohol or drug abuse patient.[facility] HospitalIn the event this information is protected by the Federal Confidentiality of Alcohol and Drug Abuse Patient Records regulations: The Federal rules restrict any use of the information to criminally investigate or prosecute any alcohol or drug abuse patient.[facility] HospitalIn the event this information is protected by the Federal Confidentiality of Alcohol and Drug Abuse Patient Records regulations: The Federal rules restrict any use of the information to criminally investigate or prosecute any alcohol or drug abuse patient.[facility] HospitalIn the event this information is protected by the Federal Confidentiality of Alcohol and Drug Abuse Patient Records regulations: The Federal rules restrict any use of the information to criminally investigate or prosecute any alcohol or drug abuse patient.[facility] HospitalIn the event this information is protected by the Federal Confidentiality of Alcohol and Drug Abuse Patient Records regulations: The Federal rules restrict any use of the information to criminally investigate or prosecute any alcohol or drug abuse patient.[facility] HospitalIn the event this information is protected by the Federal Confidentiality of Alcohol and Drug Abuse Patient Records regulations: The Federal rules restrict any use of the information to criminally investigate or prosecute any alcohol or drug abuse patient.[facility] HospitalIn the event this information is protected by the Federal Confidentiality of Alcohol and Drug Abuse Patient Records regulations: The Federal rules restrict any use of the information to criminally investigate or prosecute any alcohol or drug abuse patient.[facility] HospitalIn the event this information is protected by the Federal Confidentiality of Alcohol and Drug Abuse Patient Records regulations: The Federal rules restrict any use of the information to criminally investigate or prosecute any alcohol or drug abuse patient.[facility] HospitalIn the event this information is protected by the Federal Confidentiality of Alcohol and Drug Abuse Patient Records regulations: The Federal rules restrict any use of the information to criminally investigate or prosecute any alcohol or drug abuse patient.[facility] HospitalIn the event this information is protected by the Federal Confidentiality of Alcohol and Drug Abuse Patient Records regulations: The Federal rules restrict any use of the information to criminally investigate or prosecute any alcohol or drug abuse patient.[facility] HospitalIn the event this information is protected by the Federal Confidentiality of Alcohol and Drug Abuse Patient Records regulations: The Federal rules restrict any use of the information to criminally investigate or prosecute any alcohol or drug abuse patient.[facility] HospitalIn the event this information is protected by the Federal Confidentiality of Alcohol and Drug Abuse Patient Records regulations: The Federal rules restrict any use of the information to criminally investigate or prosecute any alcohol or drug abuse patient.[facility] HospitalIn the event this information is protected by the Federal Confidentiality of Alcohol and Drug Abuse Patient Records regulations: The Federal rules restrict any use of the information to criminally investigate or prosecute any alcohol or drug abuse patient.[facility] HospitalIn the event this information is protected by the Federal Confidentiality of Alcohol and Drug Abuse Patient Records regulations: The Federal rules restrict any use of the information to criminally investigate or prosecute any alcohol or drug abuse patient.[facility] HospitalIn the event this information is protected by the Federal Confidentiality of Alcohol and Drug Abuse Patient Records regulations: The Federal rules restrict any use of the information to criminally investigate or prosecute any alcohol or drug abuse patient.[facility] HospitalIn the event this information is protected by the Federal Confidentiality of Alcohol and Drug Abuse Patient Records regulations: The Federal rules restrict any use of the information to criminally investigate or prosecute any alcohol or drug abuse patient.[facility] HospitalIn the event this information is protected by the Federal Confidentiality of Alcohol and Drug Abuse Patient Records regulations: The Federal rules restrict any use of the information to criminally investigate or prosecute any alcohol or drug abuse patient.[facility] HospitalIn the event this information is protected by the Federal Confidentiality of Alcohol and Drug Abuse Patient Records regulations: The Federal rules restrict any use of the information to criminally investigate or prosecute any alcohol or drug abuse patient.[facility] HospitalIn the event this information is protected by the Federal Confidentiality of Alcohol and Drug Abuse Patient Records regulations: The Federal rules restrict any use of the information to criminally investigate or prosecute any alcohol or drug abuse patient.[facility] HospitalIn the event this information is protected by the Federal Confidentiality of Alcohol and Drug Abuse Patient Records regulations: The Federal rules restrict any use of the information to criminally investigate or prosecute any alcohol or drug abuse patient.[facility] HospitalIn the event this information is protected by the Federal Confidentiality of Alcohol and Drug Abuse Patient Records regulations: The Federal rules restrict any use of the information to criminally investigate or prosecute any alcohol or drug abuse patient.[facility] HospitalIn the event this information is protected by the Federal Confidentiality of Alcohol and Drug Abuse Patient Records regulations: The Federal rules restrict any use of the information to criminally investigate or prosecute any alcohol or drug abuse patient.[facility] HospitalIn the event this information is protected by the Federal Confidentiality of Alcohol and Drug Abuse Patient Records regulations: The Federal rules restrict any use of the information to criminally investigate or prosecute any alcohol or drug abuse patient.[facility] HospitalIn the event this information is protected by the Federal Confidentiality of Alcohol and Drug Abuse Patient Records regulations: The Federal rules restrict any use of the information to criminally investigate or prosecute any alcohol or drug abuse patient.[facility] HospitalIn the event this information is protected by the Federal Confidentiality of Alcohol and Drug Abuse Patient Records regulations: The Federal rules restrict any use of the information to criminally investigate or prosecute any alcohol or drug abuse patient.[facility] Reason for Visit (unrecogniz ed section and content) Reason Comments Anemia Specialty Diagnoses / Procedures Referred By Contac t Referred To Contact Diagnoses Iron deficiency anemia due to chronic blood loss Ulcerative colitis with rectal bleeding, unspecified location (HCC) Procedures IRON SUCROSE INJECTION PER 1 MG Ana Rico MD [address] [place] [address] [facility] [address] [place] [address] Referral ID Status Reason Start Date Expiration Date V isits Requested Visits Authorized [id number] Authorized 12/16/2022 03/16/2023 1 13 Reason Comments [...] Reason Comments Initial OB Visit Reason Comments 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 Reason Comments Patient Update Reason Comments Vaginal Discharge Reason Onset Date Comments Care 09/03/2022 Reason Comments US Specialty Diagnoses / Procedures Referred By Contac t Referred To Contact [facility] Diagnoses Encounter for supervision of normal first in first trimester Procedures NUCHAL TRANSLUCENCY WHI US NUCHAL TRANSLUCENCY 1ST GESTATION Dora Tamayo MD [address] [place] [address] [address] Referral ID Status Reason Start Date Expiration Date V isits Requested Visits Authorized [id number] Closed Auto-Generate d Referral 08/06/2022 08/06/2023 1 1 Reason Comments Established Patient Follow up visit - la b results Reason Comments Ulcerative pancolitis Colon not done Reason Onset Date Comments Refill Request 10/11/2022 Reason Comments ED Follow-up Reason Comments 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 2 Reason Comments Orders Reason Comments Vaginal Problem itching and uncomfor table x 1 week, 24 weeks Reason Onset Date Comments Care 11/29/2022 Immunizations 11/29/2022 Flu vaccination Reason Comments Infusion Reason Comments Opened In Error Reason Comments 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 Reason Onset Date Comments Care 12/27/2022 Reason Onset Date Comments Care 01/24/2023 Specialty Diagnoses / Procedures Referred By Caroline garnica Referred To Contact [facility] Diagnoses 30 weeks gestation of Ulcerative colitis with complication, unspecified location (HCC) Procedures OBSTETRIC ULTRASOUND WHI US PREG UTERUS AFTER 1ST TRIMEST GESTATION Dora Tamayo MD [address] [place] [address] [facility] [address] [place] [address] Referral ID Status Reason Start Date Expiration Date V isits Requested Visits Authorized [id number] Closed Auto-Generate d Referral 01/09/2023 01/09/2024 2 1 Reason Onset Date Comments Care 02/07/2023 Reason Onset Date Comments Care 02/21/2023 Reason Comments Routine Reason Onset Date Comments Insertion Of IUD 05/27/2023 Specialty Diagnoses / Procedures Referred By Caroline garnica Referred To Contact [facility] Diagnoses Counseling for control regarding intrauterine device (IUD) Procedures INSERT INTRAUTERINE DEVICE LEVONORGESTREL IU 52MG 5 YR INSERT INTRAUTERINE DEVICE REMOVE INTRAUTERINE DEVICE Dora Tamayo MD [address] [place] [address] [facility] [address] [place] [address] Referral ID Status Reason Start Date Expiration Date Visits Requested Visits Authorized [id number] Authorized Auto-Generat ed Referral 04/04/2023 03/09/2024 2 2 Reason Comments IUD Removal Orders Reason Comments Ulcerative pancolitis Blood in the stool also loose Reason Comments Establish Care Results Scan completed by GI Reason Comments Yearly [employer]' Reason Comments Recheck Ulcerative Pancoliti s- pt states she is feeling worse than she was her ESTELA Reason Comments New Patient Reason Comments New Patient Evaluation Specialty Diagnoses / Procedures Referred By Caroline garnica Referred To Contact Hematology Diagnoses Vitamin B12 deficiency Folic acid deficiency Procedures CONSULT TO HEMATOLOGY OFFICE/OUTPATIENT NEW HIGH [facility] 60 MINUTES Desire Moyer DO [address] [place] [address] Referral ID Status Reason Start Date Expiration Date V isits Requested Visits Authorized [id number] Closed PCP Requested Referral 04/05/2024 04/05/2025 1 1 Reason Comments Nasal Congestion drainage, sneezing x 4 days, cough and headache x 1 day Reason Comments Non-Chemotherapy Treatment Specialty Diagnoses / Procedures Referred By Caroline garnica Referred To Contact Diagnoses Iron deficiency anemia due to chronic blood loss Ulcerative colitis with rectal bleeding, unspecified location (HCC) Procedures IRON SUCROSE INJECTION PER 1 MG Evelyne Evangelista [address] [place] [address] Phone: tel: fax: Hematology/Oncology [address] [place] [address] Phone: tel: fax: Referral ID Status Reason Start Date Expiration Date Visits Requested Visits Authorized [id number] Authorized Patient Cleared INN/[facility] Payor Auth Obtained 04/19/2024 10/16/2024 5 5 Reason Comments Follow Up b12 Pt is going to have the injections administered at home by her motherRepeat labs have been ordered by Hemo Anemia Pt is going to resum e iron infusionsOrdered by Dr. EvangelistaPt is taking iron po tid and folic acidIUD in place for Menorrhagia Ulcerative Colitis Following with Gastr oWill complete testing prior to restarting Mesalamine Reason Comments Social Work Services Reason Comments Dizziness Reason Comments Vomiting Vomiting off and on x 6-7 weeks Reason Comments Establish Care Reason Comments Ulcerative pancolitis Complains of weigh t loss Reason Comments Radiology CT Specialty Diagnoses / Procedures Referred By Caroline garnica Referred To Contact [facility] Diagnoses Ulcerative pancolitis with rectal bleeding (HCC) Anemia, unspecified type Unintentional weight loss Procedures CT ABD/PEL W IVCON CT ABD & PELVIS W/CONTRAST Karolina Yu, 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.[facility] [employer] [address] [place] [address] Phone: tel: fax: [place] [address] Referral ID Status Reason Start Date Expiration Date V isits Requested Visits Authorized [id number] Closed Auto-Generate d Referral 09/17/2024 10/17/2025 1 1 Reason Comments Patient Question Infusion start Reason Comments Establish Care Reason Comments Vomiting, abdominal pain and no appetite Care Teams (unrecognized sec tion and content) White Mixing 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 [place] [address] PCP - General Internal Medicine 08/03/20 White Mixing 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 [place] [address] PCP - General Internal Medicine 08/03/20 White Mixing 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 [address] PCP - General Internal Medicine 08/03/20 White Mixing 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 [address] PCP - General Internal Medicine 08/03/20 White Mixing 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 [address] PCP - General Internal Medicine 08/03/20 White Mixing 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 [address] PCP - General Internal Medicine 08/03/20 White Mixing 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 [address] PCP - General Internal Medicine 08/03/20 White Mixing Operator Relationship Specialty Start Date End Date Britney Kay MD [address] [place] [address] PCP - General Internal Medicine 08/03/20 White Mixing 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 [place] [address] PCP - General Internal Medicine 08/03/20 White Mixing Operator Relationship Specialty Start Date End Date Britney Kay MD [address] [place] [address] PCP - General Internal Medicine 08/03/20 White Mixing Operator Relationship Specialty Start Date End Date Britney Kay MD [address] [place] [address] PCP - General Internal Medicine 08/03/20 White Mixing Operator Relationship Specialty Start Date End Date Britney Kay MD [address] [place] [address] PCP - General Internal Medicine 08/03/20 White Mixing Operator Relationship Specialty Start Date End Date Britney Kay MD [address] [place] [address] PCP - General Internal Medicine 08/03/20 White Mixing Operator Relationship Specialty Start Date End Date Britney Kay MD [address] [place] [address] PCP - General Internal Medicine 08/03/20 White Mixing Operator Relationship Specialty Start Date End Date Britney Kay MD [address] [place] [address] PCP - General Internal Medicine 08/03/20 White Mixing Operator Relationship Specialty Start Date End Date Britney Kay MD [address] [place] [address] PCP - General Internal Medicine 08/03/20 White Mixing Operator Relationship Specialty Start Date End Date Britney Kay MD [address] [place] [address] PCP - General Internal Medicine 08/03/20 White Mixing Operator Relationship Specialty Start Date End Date Britney Kay MD [address] [place] [address] PCP - General Internal Medicine 08/03/20 White Mixing Operator Relationship Specialty Start Date End Date Britney Kay MD [address] [place] [address] PCP - General Internal Medicine 08/03/20 White Mixing Operator Relationship Specialty Start Date End Date Britney Kay MD [address] [place] [address] PCP - General Internal Medicine 08/03/20 White Mixing Operator Relationship Specialty Start Date End Date Britney Kay MD [address] [place] [address] PCP - General Internal Medicine 08/03/20 White Mixing Operator Relationship Specialty Start Date End Date Britney Kay MD [address] [place] [address] PCP - General Internal Medicine 08/03/20 White Mixing Operator Relationship Specialty Start Date End Date Britney Kay MD [address] [place] [address] PCP - General Internal Medicine 08/03/20 White Mixing Operator Relationship Specialty Start Date End Date Britney Kay MD [address] [place] [address] PCP - General Internal Medicine 08/03/20 Team Status: Active Member Role Status Dates Dr. Hugo Berrios DO Family Provider Active Dr. Britney Kay MD Primary Care Provider Active Team Status: Active Member Role Status Dates Dr. Britney Kay MD Primary Care Provider Active Dr. Donavon Odell MD Attending Provider Active Team Status: Inactive Member Role Status Dates Dr. Britney Kay MD Primary Care Provider Active Dr. Rafael Hudson MD Emergency Provider Active White Mixing Operator Relationship Specialty Start Date End Date Britney aKy MD [address] [place] [address] PCP - General Internal Medicine 08/03/20 White Mixing Operator Relationship Specialty Start Date End Date Britney Kay MD [address] [place] [address] PCP - General Internal Medicine 08/03/20 White Mixing Operator Relationship Specialty Start Date End Date Britney Kay MD [address] [place] [address] PCP - General Internal Medicine 08/03/20 White Mixing Operator Relationship Specialty Start Date End Date Britney Kay MD [address] [place] [address] PCP - General Internal Medicine 08/03/20 White Mixing Operator Relationship Specialty Start Date End Date Britney Kay MD [address] [place] [address] PCP - General Internal Medicine 08/03/20 White Mixing Operator Relationship Specialty Start Date End Date Britney Kay MD [address] [place] [address] PCP - General Internal Medicine 08/03/20 White Mixing Operator Relationship Specialty Start Date End Date Britney Kay MD [address] [place] [address] PCP - General Internal Medicine 08/03/20 White Mixing Operator Relationship Specialty Start Date End Date Britney Kay MD [address] [place] [address] PCP - General Internal Medicine 08/03/20 White Mixing Operator Relationship Specialty Start Date End Date Britney Kay MD [address] [place] [address] PCP - General Internal Medicine 08/03/20 White Mixing Operator Relationship Specialty Start Date End Date Britney Kay MD [address] [place] [address] PCP - General Internal Medicine 08/03/20 White Mixing Operator Relationship Specialty Start Date End Date Britney Kay MD [address] [place] [address] PCP - General Internal Medicine 08/03/20 White Mixing Operator Relationship Specialty Start Date End Date Britney Kay MD [address] [place] [address] PCP - General Internal Medicine 08/03/20 White Mixing Operator Relationship Specialty Start Date End Date Britney Kay MD [address] [place] [address] PCP - General Internal Medicine 08/03/20 Team Status: Inactive Member Role Status Dates Dr. Britney Kay MD Primary Care Provider Active Dr. Deneen Streeter MD Attending Provider, R eferring Provider Active Team Status: Inactive Member Role Status Dates Dr. Britney Kay MD Primary Care Provider Active Dr. Dora Tamayo MD Admit Provider, Attending Provid er Active White Mixing Operator Relationship Specialty Start Date End Date Britney Kay MD [address] [facility], [place] [address] PCP - General Internal Medicine 08/03/20 White Mixing Operator Relationship Specialty Start Date End Date Britney Kay MD [address] [facility], [place] [address] PCP - General Internal Medicine 08/03/20 White Mixing Operator Relationship Specialty Start Date End Date Britney Kay MD [address] [place] [address] PCP - General Internal Medicine 08/03/20 White Mixing Operator Relationship Specialty Start Date End Date Desire Moyer [address] [place] [address] PCP - General Family Medicine 10/17/23 White Mixing Operator Relationship Specialty Start Date End Date Desire Moyer BroDO [address] [place] [address] PCP - General Family Medicine 10/17/23 White Mixing Operator Relationship Specialty Start Date End Date Desire Moyer BroDO [address] [place] [address] PCP - General Family Medicine 10/17/23 White Mixing Operator Relationship Specialty Start Date End Date João Desire BroDO [address] [place] [address] PCP - General Family Medicine 10/17/23 White Mixing Operator Relationship Specialty Start Date End Date João [place] BroDO [address] [place] [address] PCP - General Family Medicine 10/17/23 White Mixing Operator Relationship Specialty Start Date End Date Desire Moyer DO [address] [place] [address] PCP - General Family Medicine 10/17/23 White Mixing Operator Relationship Specialty Start Date End Date Desire Moyer DO [address] [place] [address] PCP - General Family Medicine 10/17/23 White Mixing Operator Relationship Specialty Start Date End Date Desire Moyer DO [address] [place] [address] PCP - General Family Medicine 10/17/23 White Mixing Operator Relationship Specialty Start Date End Date Desire Moyer DO [address] [place] [address] PCP - General Family Medicine 10/17/23 White Mixing Operator Relationship Specialty Start Date End Date Desire Moyer DO [address] [place] [address] PCP - General Family Medicine 10/17/23 White Mixing Operator Relationship Specialty Start Date End Date Desire Moyer DO [address] [place] [address] PCP - General Family Medicine 10/17/23 White Mixing Operator Relationship Specialty Start Date End Date Desire Moyer DO [address] [place] [address] PCP - General Family Medicine 10/17/23 White Mixing Operator Relationship Specialty Start Date End Date Desire Moyer DO [address] [place] [address] PCP - General Family Medicine 10/17/23 White Mixing Operator Relationship Specialty Start Date End Date Desire Moyer DO [address] [place] [address] PCP - General Family Medicine 10/17/23 Team Status: Active Member Role Status Dates Dr. Ruben Moyer DO Primary Care Provider Acti ve Team Status: Inactive Member Role Status Dates Dr. Ruben Moyer DO Primary Care Provider Acti ve Start: June 08, 2024 End: June 08, 2024 Dr. Dustin Burkett MD Emergency Provider Active Start: June 08, 2024 End: June 08, 2024 White Mixing Operator Relationship Specialty Start Date End Date Desire Moyer DO [address] [place] [address] PCP - General Family Medicine 10/17/23 White Mixing Operator Relationship Specialty Start Date End Date Desire Moyer DO [address] [place] [address] PCP - General Family Medicine 10/17/23 White Mixing Operator Relationship Specialty Start Date End Date Desire Moyer DO [address] [place] [address] PCP - General Family Medicine 10/17/23 White Mixing Operator Relationship Specialty Start Date End Date Desire Moyer DO [address] [place] [address] PCP - General Family Medicine 10/17/23 White Mixing Operator Relationship Specialty Start Date End Date Desire Moyer DO [address] [place] [address] PCP - General Family Medicine 10/17/23 White Mixing Operator Relationship Specialty Start Date End Date Desire Moyer DO [address] [place] [address] PCP - General Family Medicine 10/17/23 White Mixing Operator Relationship Specialty Start Date End Date Desire Moyer DO Bro [address] [place] [address] PCP - General Family Medicine 10/17/23 White Mixing Operator Relationship Specialty Start Date End Date Felipa Whittington MD [address] [place], [place] [address] PCP - General Internal Medicine/Pediatrics 10/06/24 White Mixing Operator Relationship Specialty Start Date End Date Felipa Whittington MD [address] [place], [place] [id number] PCP - General Internal Medicine/Pediatrics 10/06/24 White Mixing Operator Relationship Specialty Start Date End Date Felipa Whittington MD [address] [place], [place] [id number] PCP - General Internal Medicine/Pediatrics 10/06/24 White Mixing Operator Relationship Specialty Start Date End Date Felipa Whittington MD [address] [place], [place] [id number] PCP - General Internal Medicine/Pediatrics 10/06/24 White Mixing Operator Relationship Specialty Start Date End Date Felipa Whittington MD [address] [place], [place] [id number] PCP - General Internal Medicine/Pediatrics 10/06/24 Team Status: Active Member Role/Relationship Status Dates FELIPA WHITTINGTON Primary Care Provider Active Team Status: Active Member Role/Relationship Status Dates Dr. Dustin Burkett MD Emergency Provider Active Start: October 11, 2024 PK HUIZAR Primary Care Provider Active Start: October 11, 2024 Dr. Edy Martinez DO Admit Provider Active Star t: October 11, 2024 Dr. Edy Martinez DO Attending Provider Active Start: October 11, 2024 Team Status: Active Member Role/Relationship Status Dates Dr. Dustin Burkett MD Emergency Provider Active Start: October 11, 2024 PK HUIZAR Primary Care Provider Active Start: October 11, 2024 Dr. Edy Martinez , Admit Provider Active Star t: October 11, 2024 Dr. Edy Martinez DO Attending Provider Active Start: October 11, 2024 Dr. Edy Martinez DO Other Provider Active Star t: October 11, 2024 White Mixing Operator Relationship Specialty Start Date End Date Felipa Whittington MD [address] [place] [address] PCP - General Internal Medicine/Pediatrics 10/06/24 White Mixing Operator Relationship Specialty Start Date End Date Felipa Whittington MD [address] [place], [place] [address] PCP - General Internal Medicine/Pediatrics 10/06/24 Goals (unrecognized section and content) Goals may be documented in a n alternate sectionGoals may be documented in an alternate sectionGoals may be documented in an alternate sectionGoals may be documented in an alternate sectionGoals may be documented in an alternate section Inactive Administered Medications - up to 3 most recent administrations Administered Medications (un recognized section and content) Medication Order MAR Action Action Date Dose Rate Site levonorgestrel 21 mcg/24 hours (8 yrs) 52 mg 1 Each intrauterine device (MIRENA) 1 Each, INTRAUTERINE, ONCE (UP TO 30 DAYS AMB), 1 dose, On Fri05/27/23 at 1530, Hazardous Potential Reproductive Risk Drug: Use appropriate PPE. Given 05/27/2023 3:27 PM EDT 1 Each FOR RECORDS PERTAINING TO PATIENTS WHO ARE [...] BE BASED ON THE PRIMARY CLINICAL RECORDS. [facility] [employer] provides no warranty or guarantee of the accuracy or completeness of information in this document.
[2024-10-12 03:20] VITALS: BP 120/71; PULSE 66; RESP 16; TEMP 36.4; O2SAT 97
[2024-10-12] MEDS: 0.9% Normal Saline (1000mL) 1,000 ML 125 ML IV (04:26)
[2024-10-12 04:51] LABS: Hematocrit 33.1 % (37-47); Hemoglobin 10.5 g/dL (12.0-15.0); Immature Granulocytes Count 0.150 X10^3/uL (0.0-0.0); Mean Corp Hgb Conc 31.7 g/dL (32-36); Mean Corpuscular Volume 90.9 fL (81-99); Mean Platelet Vol. 8.6 fl (6.2-12.0); NRBC Flagged by Analyzer 0 % (0-5); POSITIVE COUNT YES; POSITIVE MORPHOLOGY YES; RBC Distribution Width CV 14.2 % (11.6-14.6); RBC Distribution Width SD 47.0 fl (35.1-43.9); Red Blood Count 3.64 M/mm3 (4.2-5.4); White Blood Count 20.2 K/mm3 (4.4-11.0)
[2024-10-12 05:00] LABS: Platelet Count 757 K/mm3 (150-450)
[2024-10-12 05:02] LABS: Differential Indicated SCAN CRITERIA MET
[2024-10-12 05:34] LABS: AST(SGOT) 17 U/L (<=31); Alanine Aminotransfer ALT/SGPT < 5 U/L (<=34); Albumin, Serum 2.1 g/dL (3.5-5.0); Alkaline Phosphatase 173 U/L (35-104); Anion Gap 11 (5-15); BUN 6 mg/dL (4-19); BUN/Creat Ratio 12.9 RATIO (10-20); Calcium,Total 7.7 mg/dL (7.6-11.0); Carbon Dioxide 21.6 mmol/L (21.0-32.0); Chloride 101 mmol/L (98-108); Estimated Creatinine Clearance 140.97 ml/min (50-250); Globulin 3.3 g/dL (2.2-4.2); Glucose 109 mg/dL (70-99); Potassium 4.0 mmol/L (3.3-5.1)
[2024-10-12] MEDS: 0.9% Saline Lock 10 ML Syringe IV (05:56)
[2024-10-12 06:21] LABS: Vacuolated Cells 1+
[2024-10-12 06:22] LABS: Red Cell Morphology NORM C+C NORMAL (NORM C&C)
--- NOTE | 2024-10-12 07:13 | PN_ITS ---
Progress Note The patient states that she feels a little better. She is tolerating food but is still having a lot of cramping and diarrhea. Physical Exam Narrative GENERAL: cooperative HEENT: Atraumatic; normocephalic EYES; Anicteric, Normal Conjunctiva NECK; supple, normal thyroid, RESPIRATORY: Diminished to auscultation CARDIOVASCULAR: Regular S1 S2, GI: soft, normoactive bowel sounds, : No Renal angle tenderness; EXTREMITIES: No edema, no clubbing, MUSCULOSKELETAL: no muscle wasting NEURO: Awake; no lateralizing signs. SKIN: No Rash PSYCH; Flat affect Assessment & Plan Assessment/Plan (1) Exacerbation of ulcerative colitis: (2) Adult failure to thrive: (3) Hypokalemia due to excessive gastrointestinal loss of potassium: PLAN: . PLAN: Plan ?24-year-old with a history of macedo-ulcerative colitis who has been experiencing severe weight loss. She has a history of C. difficile colitis earlier this year. The patient currently on steroids for UC management. She presented to the ER with complaints related to their UC flare and associated symptoms, specifically noting a significant and concerning degree of weight loss. She does not know she is up-to-date with her vaccinations. She does not know if she has been checked for STDs. She is a non-smoker. She never had any surgeries. The patient's general appearance suggests significant weight loss. Further objective findings would include: * Weight:?99 pounds with a BMI of 18.7 * Vital Signs:?Afebrile with tachycardia. Blood pressure was initially low. This is likely secondary to dehydration. * Physical Exam:?Evidence of dehydration (e.g., dry mucous membranes, decreased skin turgor) should be assessed. Abdominal examination would reveal tenderness, distention, or other signs of inflammation. * Laboratory Tests:?Complete blood count mild anemia, increased white blood cell count 17,000, * CAT scan performed on the that showed findings consistent with active pancolitis, including diffuse colonic wall thickening, pericolonic stranding and prominent vasa recta. No pneumatosis, free air or megacolon. She did have an ultrasound on the but results have not been released. The patient is experiencing a severe ulcerative colitis flare-up, indicated by significant weight loss, likely accompanied by symptoms like diarrhea, abdominal pain, and potential dehydration. The use of steroids alone suggests inadequate control of the disease, and the severe weight loss could point towards malnutrition and malabsorption related to the inflammation. Possible complications associated with severe UC include toxic megacolon, perforation, and severe bleeding, which must be considered in this acute setting. Her CT scan does not show any signs of megacolon at this time. She should be checked for cytomegalovirus, C. difficile colitis. The immediate plan is to stabilize the patient and address the acute UC flare and weight loss. * Urgent hospitalization for close monitoring and treatment is necessary. * Intravenous fluids:?Correction of dehydration and electrolyte imbalances is critical. * Intravenous steroids:?High-dose IV steroids are often used to induce remission in acute severe . * Nutritional support:?Dietary consultation along with Ensure clear supplementation. Parenteral nutrition (PN) should be considered to address severe weight loss and malnutrition, particularly if oral or enteral nutrition is not tolerated or feasible. * Given that the patient is already on steroids and experiencing a severe flare, additional or alternative therapies may be warranted if there is no improvement with IV steroids. These could include immunomodulators, biologics, or even surgical intervention. * It may be hard to get her TNF blockers in the hospital * Check QuantiFERON gold, ESR, CRP, MARCO plus serum protein electrophoresis, stool calprotectin, chronic hepatitis B, BASIA, ANCA * Avoid:?Antidiarrheal agents (e.g., loperamide) and NSAIDs, which can worsen symptoms or increase risks. * Rescue Therapy:?If no significant response to IV steroids after 3 days, consider rescue therapy with infliximab or cyclosporine. * MRCP to look for signs of primary sclerosing cholangitis in the setting of increased alkaline phosphatase and 40 pound weight loss 10/12/2024-Her CRP is very high, her white blood cell count has been increasing and her albumin has been decreasing. Her stools were negative for infection. Her CRP, ESR very elevated. Awaiting to see how her inflammatory markers respond to steroid therapy. She has 2 more days before think about the initiation of tumor necrosis factor or anticalcineurin's. Continue antibiotic therapy and steroid therapy for now. Predictors of failure of corticosteroid therapy or colectomy To be assessed at day 3 of intravenous corticosteroids Bobby davila al. [52 https://pmc.ncbi.nlm.nih.gov/articles/GMZ8416093/#CR52 ] >?8 stools/day or 3?8 stools/day AND CRP>45?mg/L 85% chance of colectomy Jake et al. [53 https://pmc.ncbi.nlm.nih.gov/articles/PTY9047324/#CR53 ] Mean stool frequency of days 1?3, albumin on admission<?30?g/L, colonic dilatation>5.5?cm on X-ray 85% chance of treatment failure if score >=4 Renny et al. [54 https://pmc.ncbi.nlm.nih.gov/articles/CMK8476675/#CR54 ] Stool frequency/day+0.14??CRP mg/L 72% chance of colectomy if>=8 Kuldip davila al. [48 https://pmc.ncbi.nlm.nih.gov/articles/VYK6605739/#CR48 ] CRP/albumin ratio>0.85 plus>3 stools/day 74% chance of treatment failure Visit Charges Inpatient E&M: 13083 Subs Hosp L3
[2024-10-12] MEDS: Piperacil/Tazobactam 3.375 GM in 0.9% Normal Saline (50mL MB+) 50 ML IV ×2 (07:45→21:14)
[2024-10-12 07:51] VITALS: BP 107/67; PULSE 79; RESP 12; TEMP 36.3; O2SAT 99
--- NOTE | 2024-10-12 09:00 | MRI_ITS ---
PROCEDURE: MRCP ABDOMEN WITHOUT CONTRAST 10/12/2024 REASON FOR EXAM: PRIMARY SCLEROSING CHOLANGITIS TECHNIQUE: MRCP ABDOMEN WITHOUT CONTRAST Multiplanar and multisequence images were obtained. COMPARISON: 01-18-2024 FINDINGS: Normal appearance of the intra and extra-hepatic biliary tracts with no abnormal dilatation or intraluminal filling defects. Optimally distended gall bladder showing no abnormal mural thickening. No obvious low signal calculi. No related antonio-cholecystic collections. Average sized liver showing homogenous parenchymal signal. The portal vein, biliary radicles and hepatic veins apple normal. The pancreas, adrenals and the spleen are normal in size and signal intensity. No obvious focal lesion is identified. Both kidneys are normal in size and position. No hydronephrosis. Bilateral perinephric fat stranding. Stable diffuse circumferential mural thickening and edema of the different colonic segments with congested vascular arcades and prominent lymph nodes. Small bowel loops appears largely collapsed however, is grossly unremarkable. Stomach shows no significant abnormality. No ascites or collections. No marrow infiltrative lesions. MRI/MRCP Abdomen without Contrast IMPRESSION: No choledocholithiasis or biliary tracts dilatation. Stable diffuse colonic mural thickening and edema of the different colonic segm ents with congested vascular arcades and prominent lymph nodes suggestive of colitis. Reading Location: [facility]
--- NOTE | 2024-10-12 09:09 | CASEMGMT ---
Dx: UC Flare LACE: 2 6-Clicks: 24 Medical record reviewed and patient evaluated for identification of discharge planning needs. Based on this review, at this time criteria are not present to indicate a need for discharge planning. Will remain available to assist with discharge planning needs as identified or requested.
--- NOTE | 2024-10-12 10:30 | PCM.PN.HOSP ---
Reason for Visit Chief Complaint: Abdominal pain. Hematochezia. Weight loss. Subjective Subjective Patient is a 24-year-old lady with history of ulcerative colitis who presented with watery diarrhea and daily tenesmus. An assessment of UC exacerbation Objective Data Objective Data Vital Signs: Vital Signs Temp Pulse Resp BP Pulse Ox O2 Del Method 97.3 F L 79 12 107/67 99 Room Air 10/12/24 07:51 10/12/24 07:51 10/12/24 07:51 10/12/24 07:51 10/12/24 07:51 10/12/24 07:51 Oxygen Delivery Method Room Air Weight: 44.906 kg Body Mass Index (BMI) 19.3 Intake & Output: Intake and Output for Last 24 Hours 10/10/24 10/11/24 10/12/24 23:59 23:59 23:59 Intake Total 1100 / 1100 1451.25 / 1451.25 Balance 1100 / 1100 1451.25 / 1451.25 Lab / Micro Data 10/12/24 04:17 10/12/24 04:17 Labs: Laboratory Results - last 24 hr 10/11/24 13:58: WBC 17.5 H, RBC 4.13 L, Hgb 11.7 L, Hct 36.3 L, MCV 87.9, MCH 28.3, MCHC 32.2, RDW Std Deviation 45.4 H, RDW Coeff of [place] 14.2, Plt Count 963 H*, MPV 8.4, Immature Gran % (Auto) 0.700, Neut % (Auto) 77.1 H, Lymph % (Auto) 15.2 L, [place] % (Auto) 6.2, Eos % (Auto) 0.1, Baso % (Auto) 0.7, Absolute Neuts (auto) 13.5 H, Absolute Lymphs (auto) 2.66, Nucleated RBC % 0, Differential Comment , Diff Path Review May foll, Atypical Lymphocytes RARE, Reactive Lymphocytes 1+, Platelet Estimate MKD INC, Sodium 136, Potassium 3.0 L, Chloride 96 L, Carbon Dioxide 28.1, Anion Gap 12, BUN 5, Creatinine 0.45 L, Estim Creat Clear Calc 137.84, Est GFR (MDRD) Non-Af 139, BUN/Creatinine Ratio 10.5, Glucose 92, Calcium 8.2, Total Bilirubin 0.34, AST 16, ALT 7, Alkaline Phosphatase 211 H, Total Protein 5.9, Albumin 2.4 L, Globulin 3.4, Albumin/Globulin Ratio 0.7 L, Lipase 5 L 10/11/24 15:40: Lactic Acid 1.1 10/11/24 20:09: ESR 32 H, Iron 24 L, TIBC 167 L, Iron Saturation 14.0, Unsaturated IBC 143 L, Ferritin 36, Lactate Dehydrogenase 161, C-React Prot Ext Range 50.90 H, Vitamin B12 1128 H, HIV 1&2 Antibody Nonreactive 10/12/24 04:17: WBC 20.2 H, RBC 3.64 L, Hgb 10.5 L, Hct 33.1 L, MCV 90.9, MCH 28.8, MCHC 31.7 L, RDW Std Deviation 47.0 H, RDW Coeff of [place] 14.2, Plt Count 757 H*, MPV 8.6, Immature Gran % (Auto) 0.700, Neut % (Auto) 88.3 H, Lymph % (Auto) 8.4 L, [place] % (Auto) 2.1, Eos % (Auto) 0.0, Baso % (Auto) 0.5, Absolute Neuts (auto) 17.9 H, Absolute Lymphs (auto) 1.70, Nucleated RBC % 0, Toxic Vacuolation 1+, Platelet Estimate MKD INC, RBC Morphology NORM C+C, Sodium 134, Potassium 4.0, Chloride 101, Carbon Dioxide 21.6, Anion Gap 11, BUN 6, Creatinine 0.44 L, Estim Creat Clear Calc 140.97, Est GFR (MDRD) Non-Af 139, BUN/Creatinine Ratio 12.9, Glucose 109 H, Calcium 7.7, Total Bilirubin 0.21, AST 17, ALT < 5, Alkaline Phosphatase 173 H, Total Protein 5.5 L, Albumin 2.1 L, Globulin 3.3, Albumin/Globulin Ratio 0.6 L Micro: Microbiology 10/12/24 00:25 Stool Stool Lactoferrin - Final 10/12/24 00:25 Stool Enteric Bacteriology - Final 10/12/24 00:25 Stool Clostridioides difficile (PCR) - Final Physical Exam Narrative GENERAL: cooperative HEENT: Atraumatic; normocephalic EYES; Anicteric, Normal Conjunctiva NECK; supple, normal thyroid, RESPIRATORY: Diminished to auscultation CARDIOVASCULAR: Regular S1 S2, GI: soft, normoactive bowel sounds, : No Renal angle tenderness; EXTREMITIES: No edema, no clubbing, MUSCULOSKELETAL: no muscle wasting NEURO: Awake; no lateralizing signs. SKIN: No Rash PSYCH; Flat affect Assessment & Plan Assessment/Plan (1) Exacerbation of ulcerative colitis: PLAN: Plan Patient is a 24-year-old lady with history of ulcerative colitis who presented with watery diarrhea and daily tenesmus. An assessment of UC exacerbation Ulcerative colitis with acute exacerbation Patient has been admitted to regular nursing floor. Seen in consultation by Dr. Love with GI is noted recommendations reviewed.Patient currently remains on IV fluids as well as antibiotic therapy with piperacillin/tazobactam and systemic steroids?Solu-Medrol 40 mg IV Q8 2.Anemia ? Secondary to chronic disorder monitoring H&H and transfuse if patient becomes symptomatic or hemoglobin falls below 7 3. Thrombocytosis ? Thought to be reactive monitoring with daily CBC with differential 4. Severe protein calorie malnutrition ? Consult placed to dietitian 5. GERD ? Patient is on PPI continue 6. Depression ? Patient is on citalopram 7. DVT prophylaxis ? On enoxaparin Charges/Coding Visit Charges Inpatient E&M: 85703 Subs Hosp L2
[2024-10-12] MEDS: Ensure Plus High Protein 120 ML LIQUID PO ×3 (11:51→21:14)
[2024-10-12 12:01] VITALS: BP 127/70; PULSE 92; RESP 16; TEMP 36.1; O2SAT 100
--- NOTE | 2024-10-12 14:02 | CASEMGMT ---
Social Work Pt completed POA for healthcare w/SW. SW gave pt the originals and copies, and copies placed on the chart. Pt did not complete the LW at this time, SW did give pt the document should pt want to complete it in the future. CIELO Tran
[2024-10-12 14:07] VITALS: BP 98/85; PULSE 96; RESP 12; O2SAT 100
[2024-10-12 21:05] VITALS: BP 122/80; PULSE 68; RESP 14; TEMP 36.7; O2SAT 100
[2024-10-13 03:00] VITALS: BP 117/86; PULSE 76; RESP 16; TEMP 36.3; O2SAT 100
[2024-10-13] MEDS: Piperacil/Tazobactam 3.375 GM in 0.9% Normal Saline (50mL MB+) 50 ML IV (05:05)
[2024-10-13 06:18] LABS: Hematocrit 27.1 % (37-47); Hemoglobin 8.4 g/dL (12.0-15.0); Immature Granulocytes Count 0.170 X10^3/uL (0.0-0.0); Mean Corp Hgb Conc 31.0 g/dL (32-36); Mean Corpuscular Volume 91.6 fL (81-99); Mean Platelet Vol. 8.6 fl (6.2-12.0); NRBC Flagged by Analyzer 0.2 % (0-5); POSITIVE MORPHOLOGY YES; Platelet Count 621 K/mm3 (150-450); RBC Distribution Width CV 14.3 % (11.6-14.6); RBC Distribution Width SD 47.6 fl (35.1-43.9); Red Blood Count 2.96 M/mm3 (4.2-5.4); White Blood Count 10.9 K/mm3 (4.4-11.0)
[2024-10-13 06:21] LABS: Differential Indicated SCAN CRITERIA MET
[2024-10-13 07:00] LABS: Differential Comment SCANNED
[2024-10-13 07:04] LABS: Anion Gap 7 (5-15); BUN 7 mg/dL (4-19); BUN/Creat Ratio 15.1 RATIO (10-20); Calcium,Total 7.6 mg/dL (7.6-11.0); Carbon Dioxide 24.9 mmol/L (21.0-32.0); Chloride 104 mmol/L (98-108); Estimated Creatinine Clearance 137.84 ml/min (50-250); Glucose 135 mg/dL (70-99); Magnesium 2.2 mg/dL (1.5-2.2); Potassium 3.6 mmol/L (3.3-5.1)
--- NOTE | 2024-10-13 08:41 | PN.HOSP_ITS ---
Reason for Visit Chief Complaint: Abdominal pain. Hematochezia. Weight loss. Subjective Subjective Patient seen complains of having seen blood in her stool. Her pain however is much improved. Ordered ESR and CRP for a.m. Objective Data Objective Data Vital Signs: Vital Signs Temp Pulse Resp BP Pulse Ox O2 Del Method 97.3 F L 76 16 117/86 H 100 Room Air 10/13/24 03:00 10/13/24 03:00 10/13/24 03:00 10/13/24 03:00 10/13/24 03:00 10/13/24 03:00 Oxygen Delivery Method Room Air Weight: 44.906 kg Body Mass Index (BMI) 19.3 Intake & Output: Intake and Output for Last 24 Hours 10/11/24 10/12/24 10/13/24 23:59 23:59 23:59 Intake Total 1100 / 1100 2700.00 / 2700.00 50 / 50 Balance 1100 / 1100 2700.00 / 2700.00 50 / 50 Medical Nutrition Assessment Dietitian: Malnutrition Criteria Met Start: 10/12/24 15:35 Freq: Status: Active Protocol: Document 10/12/24 15:35 SB (Rec: 10/12/24 15:36 SB [id number]) Nutrition Malnutrition Evidence of Yes Malnutrition Exists Malnutrition (severe Chronic ): Evidenced By Suboptimal Energy Intake (Severe),Weight Loss (Severe) Clinical Problem Chronic Disease or Condition Related Malnutrition Etiology severe related to inadequate oral intake and inflammatory bowel disease/ulcerative colitis Signs/Symptoms as evidenced by PO meeting <75% of estimated nutrition needs x 6 months and 29% unintentional weight loss x 6 months. Status Active Problem Recommendation Dietitian Continue regular diet with ensure clear. Recommendations/ Continue 120ml EPHP 4x daily with medpass. Changes Will monitor weight trends. Lab / Micro Data 10/13/24 05:47 10/13/24 05:47 Labs: Laboratory Results - last 24 hr 10/13/24 05:47: WBC 10.9, RBC 2.96 L, Hgb 8.4 L, Hct 27.1 L, MCV 91.6, MCH 28.4, MCHC 31.0 L, RDW Std Deviation 47.6 H, RDW Coeff of [place] 14.3, Plt Count 621 H, MPV 8.6, Immature Gran % (Auto) 1.600 H, Neut % (Auto) 73.1 H, Lymph % (Auto) 18.6 L, [place] % (Auto) 6.6, Eos % (Auto) 0.0, Baso % (Auto) 0.1, Absolute Neuts (auto) 8.0 H, Absolute Lymphs (auto) 2.02, Nucleated RBC % 0.2, Differential Comment SCANNED, Sodium 136, Potassium 3.6, Chloride 104, Carbon Dioxide 24.9, Anion Gap 7, BUN 7, Creatinine 0.45 L, Estim Creat Clear Calc 137.84, Est GFR (MDRD) Non-Af 138, BUN/Creatinine Ratio 15.1, Glucose 135 H, Calcium 7.6, Phosphorus 3.4, Magnesium 2.2 Micro: Microbiology 10/12/24 00:25 Stool Stool Lactoferrin - Final 10/12/24 00:25 Stool Enteric Bacteriology - Final 10/12/24 00:25 Stool Clostridioides difficile (PCR) - Final Radiography Diagnostic Testing: Radiology Impression MRCP 10/12/24 09:00 IMPRESSION: No choledocholithiasis or biliary tracts dilatation. Stable diffuse colonic mural thickening and edema of the different colonic segments with congested vascular arcades and prominent lymph nodes suggestive of colitis. Reading Location: [place] [id number] Physical Exam Narrative GENERAL: cooperative HEENT: Atraumatic; normocephalic EYES; Anicteric, Normal Conjunctiva NECK; supple, normal thyroid, RESPIRATORY: Diminished to auscultation CARDIOVASCULAR: Regular S1 S2, GI: soft, normoactive bowel sounds, : No Renal angle tenderness; EXTREMITIES: No edema, no clubbing, MUSCULOSKELETAL: no muscle wasting NEURO: Awake; no lateralizing signs. SKIN: No Rash PSYCH; Flat affect Assessment & Plan Assessment/Plan (1) Exacerbation of ulcerative colitis: PLAN: Plan Patient is a 24-year-old lady with history of ulcerative colitis who presented with watery diarrhea and daily tenesmus. An assessment of UC exacerbation 1. Ulcerative colitis with acute exacerbation Patient has been admitted to regular nursing floor. Seen in consultation by Dr. Love with GI is noted recommendations reviewed.Patient currently remains on IV fluids as well as antibiotic therapy with piperacillin/tazobactam and systemic steroids?Solu-Medrol 40 mg IV Q8 ? 10/13/2024; patient remains on steroid her inflammatory markers still remain elevated. Awaiting results of TB test and declining inflammatory markers prior to initiation of TNF's. Patient stool studies so far negative for any infection. Ordered repeat ESR and CRP for 2. Anemia ? Secondary to chronic disorder monitoring H&H and transfuse if patient becomes symptomatic or hemoglobin falls below 7 3. Thrombocytosis ? Thought to be reactive monitoring with daily CBC with differential 4. Severe protein calorie malnutrition ? Consult placed to dietitian 5. GERD ? Patient is on PPI continue 6. Depression ? Patient is on citalopram 7. DVT prophylaxis ? On enoxaparin Time spent in the patient's overall evaluation,decision-making process, review of diagnostic data, adjustment of management, discussion with other providers, nursing nursing and ancillary staff involved in patient's care documentation, 36 Minutes Charges/Coding Visit Charges Inpatient E&M: 26842 Subs Hosp L2
[2024-10-13] MEDS: Ensure Plus High Protein 120 ML LIQUID PO ×2 (08:56→15:14)
[2024-10-13 09:00] VITALS: BP 124/88; PULSE 68; RESP 15; TEMP 36.6; O2SAT 100
--- NOTE | 2024-10-13 11:25 | EX.PCM.PN.GI ---
Subjective Subjective INTIAL DX: December 2020 - has not had a colonoscopy since then Presenting Symptoms: Blood in stool, urgency and diarrhea PRIOR Treatment: Lialda 4.8g QD then Humira 10/2021 to July 2022 (discontinued when she found out she was ), symptomatically reports she was in remission during - she reports she was doing well for a year, no steroids, her baseline is diarrhea 10+x a day, worse at night, up every hour - bleeding is intermittent, in water, been the same since diagnosis - denies any family h/o IBD April 2024 C. Diff - Vanco QID x10 days Apr - September weight loss of 40lbs - she reports having 10+ BM a day, watery diarrhea, waking up frequently at HS, urgency, having fecal incontinence - c/o lower abdominal pain, intermittent, prior to a BM can worsen, cramping - denies mucus in stools - c/o fatigue, weakness - started Steroids past month - at the beginning she felt like she had more energy, but did not really make any improvement in stool - denies any fevers - denies taking any NSAIDS - denies any joint aches - denies any skin rashes or lesions - she is tolerating PO - tries to avoid dairy - reports protein shakes cause diarrhea - new epigastric pain x1 month, burning, was started on PPI daily for prophylaxis with steroid - denies any nausea, denies any emesis - pain does not change with PO intake - bruises easily - IUD - no menstrual cycles - not restricting food intake - denies any eating disorder - she is a non-smoker - denies alcohol use - denies any marijuana or illict drug use She was seen by Dr. Rico (Hematology) February 2021 for Fe deficiency anemia not responding to oral Fe. 02/16/2021 MORGAN suspected to be related to malabsorption from underlying UC. Doing well with Lialda, now taking Lialda BID with good control. BMs are currently 2-3 per day, normal consistency, some small episodes of BRBPR 1-2x per month. Objective Data Objective Data Capsule endoscopy 01/25/2021 demonstrated no GI sources of anemia. Colonoscopy 12/14/2020 chronic pancolitis, no granulomas EGD 12/14/2020 duodenal biopsies negative Vital Signs: Vital Signs Temp Pulse Resp BP Pulse Ox O2 Del Method 97.3 F L 76 16 117/86 H 100 Room Air 10/13/24 03:00 10/13/24 03:00 10/13/24 03:00 10/13/24 03:00 10/13/24 03:00 10/13/24 03:00 Oxygen Delivery Method Room Air Weight: 99 lb 0.012 oz Body Mass Index (BMI) 19.3 Intake & Output: Intake and Output for Last 24 Hours 10/11/24 10/12/24 10/13/24 23:59 23:59 23:59 Intake Total 1100 / 1100 2700.00 / 2700.00 100 / 100 Balance 1100 / 1100 2700.00 / 2700.00 100 / 100 Medical Nutrition Assessment Dietitian: Malnutrition Criteria Met Start: 10/12/24 15:35 Freq: Status: Active Protocol: Document 10/12/24 15:35 SB (Rec: 10/12/24 15:36 SB [id number]) Nutrition Malnutrition Evidence of Yes Malnutrition Exists Malnutrition (severe Chronic ): Evidenced By Suboptimal Energy Intake (Severe),Weight Loss (Severe) Clinical Problem Chronic Disease or Condition Related Malnutrition Etiology severe related to inadequate oral intake and inflammatory bowel disease/ulcerative colitis Signs/Symptoms as evidenced by PO meeting <75% of estimated nutrition needs x 6 months and 29% unintentional weight loss x 6 months. Status Active Problem Recommendation Dietitian Continue regular diet with ensure clear. Recommendations/ Continue 120ml EPHP 4x daily with medpass. Changes Will monitor weight trends. Lab / Micro Data Attestation: I reviewed the patient's lab results. Lab results narrative: Fecal Calprotectin 10/07/2024 1160 10/13/24 05:47 10/13/24 05:47 Labs: Laboratory Results - last 24 hr 10/13/24 05:47: WBC 10.9, RBC 2.96 L, Hgb 8.4 L, Hct 27.1 L, MCV 91.6, MCH 28.4, MCHC 31.0 L, RDW Std Deviation 47.6 H, RDW Coeff of [place] 14.3, Plt Count 621 H, MPV 8.6, Immature Gran % (Auto) 1.600 H, Neut % (Auto) 73.1 H, Lymph % (Auto) 18.6 L, [place] % (Auto) 6.6, Eos % (Auto) 0.0, Baso % (Auto) 0.1, Absolute Neuts (auto) 8.0 H, Absolute Lymphs (auto) 2.02, Nucleated RBC % 0.2, Differential Comment SCANNED, Sodium 136, Potassium 3.6, Chloride 104, Carbon Dioxide 24.9, Anion Gap 7, BUN 7, Creatinine 0.45 L, Estim Creat Clear Calc 137.84, Est GFR (MDRD) Non-Af 138, BUN/Creatinine Ratio 15.1, Glucose 135 H, Calcium 7.6, Phosphorus 3.4, Magnesium 2.2 Micro: Microbiology 10/12/24 00:25 Stool Stool Lactoferrin - Final POSITIVE 10/12/24 00:25 Stool Enteric Bacteriology - Final NEGATIVE 10/12/24 00:25 Stool Clostridioides difficile (PCR) - Final NEGATIVE Radiography Diagnostic Testing: Radiology Impression MRCP 10/12/2024 Normal appearance of the intra and extra-hepatic biliary tracts with no abnormal dilatation or intraluminal filling defects. Optimally distended gall bladder showing no abnormal mural thickening. No obvious low signal calculi. No related antonio-cholecystic collections. Stable diffuse colonic mural thickening and edema of the different colonic segments with congested vascular arcades and prominent lymph nodes suggestive of colitis. 09/24/2024 CT w/IV contrast * Diffuse wall thickening and edema adjacent pericolonic inflammatory stranding and engorgement vasa recta involving the entirety of the colon and rectum. There are multiple adjacent prominent mesenteric lymph nodes. * No dilation Abdominal aorta and iliac arteries: Atherosclerotic calcifications without aneurysm. - Celiac and SMA: Atherosclerotic calcifications at the origins. Physical Exam Const alert, oriented x3 and no apparent distress General Appearance: cooperative and comfortable Exam Limitations: no limitations HEENT head/scalp atraumatic Head and Scalp: normocephalic Eyes Sclera: sclera normal Neck full ROM General: normal visual inspection and trachea midline Resp normal respiratory effort and normal air movement Auscultation: clear to auscultation bilaterally Cardio regular rate, regular rhythm, S1 normal heart sound and S2 normal heart sound GI normal to inspection, nondistended, normoactive bowel sounds and soft to palpation GI Narrative: mild genarlized discomfort Extremity normal to inspection and full ROM Peripheral Pulses: Yes pulses 2+ throughout Skin no rashes or lesions noted Neuro oriented x3 Speech: speech normal Assessment & Plan Assessment/Plan (1) Weight loss: (2) Exacerbation of ulcerative colitis: (3) Iron deficiency anemia: PLAN: Plan 24y/o female with known UC diagnosed via colonoscopy in 2020 with chronic active pancolitis. Currently experiencing 10-20 watery, bloody BMs/day, urgency, nocturnal symptoms, abdominal cramping, and significant 40lb weight loss. Failed outpatient steroids (prednisone started mid September). CT 09/24/2024 revealing for pancolitis with inflammatory stranding and reactive lymphadenopathy. Colonoscopy was last performed at time of initial diagnosis December 2020. She is established with a GI provided in [place] ([facility]), but wishes to transfer her GI care to [place]. Labs are significant for drop in HGB from 11.7 to 8.4 in two days (likely mixed inflammatory, GI loss and Fe deficiency). Hypoalbuminemia (2.1). CRP 50.9, ESR 32. Iron studies consistent with Fe deficiency (Fe 24, Ts[place] 14%, TIBC 167). Normal GGT and MRCP (no PSC). C. Diff negative and afebrile. Fecal Calprotectin 1160 on 10/07/2024. Currently on Zosyn and IV methylprednisolone 40mg Q8h (total 120mg/day). She has failed ot respond to PO Fe TID in the past and was seen by hematology for IV Fe. I recommend IV Fe infusion.
--- NOTE | 2024-10-13 12:39 | DS.PCM_ITS ---
Providers Date of Admission: 10/11/24 Date of Discharge: 10/13/24 Primary Care Physician: BHUPENDRA HAQ Consultations 10/11/24 18:50 Consult: Gastroenterology Routine Consulting Provider: [facility] Reason for Consult: colitis EMERGENT Consult: No MD Notified: Yes Date Notified: 10/11/24 Time Notified: 17:41 Method of Notification: ED Physician Initiated Reason For Visit: UC FLARE Diagnosis Discharge Diagnosis (1) Weight loss: Status: Acute Code(s): R63.4 - Abnormal weight loss (2) Exacerbation of ulcerative colitis: Status: Acute Code(s): K51.90 - Ulcerative colitis, unspecified, without complications (3) Iron deficiency anemia: Status: Acute Code(s): D50.9 - Iron deficiency anemia, unspecified Plan Patient is a 24-year-old lady with history of ulcerative colitis who presented with watery diarrhea and daily tenesmus. An assessment of UC exacerbation 1. Ulcerative colitis with acute exacerbation Patient has been admitted to regular nursing floor. Seen in consultation by Dr. Love with GI is noted recommendations reviewed.Patient currently remains on IV fluids as well as antibiotic therapy with piperacillin/tazobactam and systemic steroids?Solu-Medrol 40 mg IV Q8 ? 10/13/2024; patient remains on steroid her inflammatory markers still remain elevated. Awaiting results of TB test and declining inflammatory markers prior to initiation of TNF's. Patient stool studies so far negative for any infection. Ordered repeat ESR and CRP for a.m. ? Case was discussed with Dr. Love with GI recommended the patient could be discharged home on prednisone and Augmentin with outpatient follow-up with him 2. Anemia ? Secondary to chronic disorder monitoring H&H and transfuse if patient becomes symptomatic or hemoglobin falls below 7 3. Thrombocytosis ? Thought to be reactive monitoring with daily CBC with differential 4. Severe protein calorie malnutrition ? Consult placed to dietitian 5. GERD ? Patient is on PPI continue 6. Depression ? Patient is on citalopram 7. DVT prophylaxis ? On enoxaparin Time spent in the patient's overall evaluation,decision-making process, review of diagnostic data, adjustment of management, discussion with other providers, nursing nursing and ancillary staff involved in patient's care documentation, 36 Minutes Medications at Discharge Home Medications citalopram 10 mg tablet 10 mg PO DAILY 10/11/24 omeprazole 20 mg capsule,delayed release 20 mg PO DAILY 10/11/24 amoxicillin 875 mg-potassium clavulanate 125 mg tablet 1 tab PO BID #14 tabs 10/13/24 prednisone 20 mg tablet 60 mg (3 x 20 mg) PO DAILY 30 days #90 tabs 10/13/24 Physical Exam Narrative GENERAL: cooperative HEENT: Atraumatic; normocephalic EYES; Anicteric, Normal Conjunctiva NECK; supple, normal thyroid, RESPIRATORY: Diminished to auscultation CARDIOVASCULAR: Regular S1 S2, GI: soft, normoactive bowel sounds, : No Renal angle tenderness; EXTREMITIES: No edema, no clubbing, MUSCULOSKELETAL: no muscle wasting NEURO: Awake; no lateralizing signs. SKIN: No Rash PSYCH; Flat affect Medical Records Data Medical Nutrition Assessment Dietitian: Malnutrition Criteria Met Start: 10/12/24 15:35 Freq: Status: Active Protocol: Document 10/12/24 15:35 SB (Rec: 10/12/24 15:36 SB [id number]) Nutrition Malnutrition Evidence of Yes Malnutrition Exists Malnutrition (severe Chronic ): Evidenced By Suboptimal Energy Intake (Severe),Weight Loss (Severe) Clinical Problem Chronic Disease or Condition Related Malnutrition Etiology severe related to inadequate oral intake and inflammatory bowel disease/ulcerative colitis Signs/Symptoms as evidenced by PO meeting <75% of estimated nutrition needs x 6 months and 29% unintentional weight loss x 6 months. Status Active Problem Recommendation Dietitian Continue regular diet with ensure clear. Recommendations/ Continue 120ml EPHP 4x daily with medpass. Changes Will monitor weight trends. Weight / BMI Weight Weight: 44.906 kg Body Mass Index (BMI) 19.3 ABG / Lab / Microbiology Data 10/13/24 05:47 10/13/24 05:47 Laboratory: Laboratory Results - last 24 hr 10/13/24 05:47: WBC 10.9, RBC 2.96 L, Hgb 8.4 L, Hct 27.1 L, MCV 91.6, MCH 28.4, MCHC 31.0 L, RDW Std Deviation 47.6 H, RDW Coeff of [place] 14.3, Plt Count 621 H, MPV 8.6, Immature Gran % (Auto) 1.600 H, Neut % (Auto) 73.1 H, Lymph % (Auto) 18.6 L, [place] % (Auto) 6.6, Eos % (Auto) 0.0, Baso % (Auto) 0.1, Absolute Neuts (auto) 8.0 H, Absolute Lymphs (auto) 2.02, Nucleated RBC % 0.2, Differential Comment SCANNED, Sodium 136, Potassium 3.6, Chloride 104, Carbon Dioxide 24.9, Anion Gap 7, BUN 7, Creatinine 0.45 L, Estim Creat Clear Calc 137.84, Est GFR (MDRD) Non-Af 138, BUN/Creatinine Ratio 15.1, Glucose 135 H, Calcium 7.6, Phosphorus 3.4, Magnesium 2.2 Microbiology: Microbiology 10/12/24 00:25 Stool Stool Lactoferrin - Final 10/12/24 00:25 Stool Enteric Bacteriology - Final 10/12/24 00:25 Stool Clostridioides difficile (PCR) - Final Radiography Diagnostic Testing: Radiology Impression MRCP 10/12/24 09:00 IMPRESSION: No choledocholithiasis or biliary tracts dilatation. Stable diffuse colonic mural thickening and edema of the different colonic segments with congested vascular arcades and prominent lymph nodes suggestive of colitis. Reading Location: [place] [id number] D/C Instructions Discharge Activity: Return to Normal Activity Call your doctor if you observe: Fever of 101 or Higher, Shortness of breath, Fainting spells and Chest pain DC O2, CPAP, BIPAP Needs Home O2 Discharge instructions: No Meaningful Use Info Meaningful Use Meaningful Use Diagnoses (Choose all that apply): None applicable Discharge Plan Admission Admit Date/Time: 10/11/24 17:36 Attending Provider: Hugo Claire Primary Care Provider: BHUPENDRA HAQ Consulting Providers: Edy Martinez Discharge Orders/Prescriptions Prescriptions: New amoxicillin-pot clavulanate 875-125 mg tablet 1 tab PO BID Qty: 14 0RF prednisone 20 mg tablet 60 mg PO DAILY 30 Days Qty: 90 0RF Continued omeprazole 20 mg capsule,delayed release(DR/EC) 20 mg PO DAILY citalopram 10 mg tablet 10 mg PO DAILY Discontinued prednisone 5 mg tablet 15 mg PO .every day Referrals / Follow Up: BHUPENDRA HAQ [Other] - Within 2 Weeks BHUPENDRA HAQ [Other] cong [Other] Friend,DO Raji [Med Staff - Active Staff] - Within 1 Week Disposition Disposition (needs filled in before D/C Order can be placed): Home, Self Care Charges/Coding Visit Charges Inpatient E&M: 90857 Disch Hosp >30min
--- NOTE | 2024-10-13 13:59 | PHA.DC_ITS ---
Pharmacy [facility] Counseling Pharmacy Service has performed discharge medication reconciliation and counseling for this patient. 1. AUGMENTIN 875/125MG 1T PO BID X 7 DAYS 2. PREDNISONE CHANGED TO 60MG PO DAILY The patient's discharge medication list was reviewed for discrepancies and discrepancies were resolved. The patient was counseled on the following discharge medications and changes in medications for homegoing were reviewed. The Reason for Use, instructions for use, and potential side effects were reviewed for all new medications. The patient's questions regarding all of their medications were answered. The patient was able to verbally demonstrate an understanding of their discharge medications. Medications at Discharge Home Medications citalopram 10 mg tablet 10 mg PO DAILY 10/11/24 omeprazole 20 mg capsule,delayed release 20 mg PO DAILY 10/11/24 amoxicillin 875 mg-potassium clavulanate 125 mg tablet 1 tab PO BID #14 tabs 10/13/24 food supplemt, lactose-reduced (Ensure Active High Protein oral liquid) 237 ml PO BID 30 days #14,220 mL 10/13/24 prednisone 20 mg tablet 60 mg (3 x 20 mg) PO DAILY 30 days #90 tabs 10/13/24
--- NOTE | 2024-10-13 14:25 | CASEMGMT ---
Patient has order for discharge. RN CM in to discuss needs at discharge. Patient denies needs or help at discharge. Patient had no further questions or concerns.
[2024-10-13 15:00] VITALS: BP 116/87; PULSE 72; RESP 15; TEMP 36.6; O2SAT 100
[2024-10-13] MEDS: Sodium Ferric Gluconat 250 MG in 0.9% Normal Saline 250 ML 135 MG IV (15:06)
== END 2024-10-13 17:43 | disposition home or self-care (01) | DRG 385 ==
LOC: ED 16:12 → PCU 17:53
PROVIDERS: Internal Medicine Gastroenterology; Emergency Provider Emergency Medicine; Visit Provider Internal Medicine
DX: K51.011 Ulcerative (chronic) pancolitis with rectal bleeding (principal); E43 Unspecified severe protein-calorie malnutrition; Z68.1 Body mass index [BMI] 19.9 or less, adult; R62.7 Adult failure to thrive; D63.8 Anemia in other chronic diseases classified elsewhere; E88.09 Other disorders of plasma-protein metabolism, not elsewhere classified; F32.A Depression, unspecified; E86.0 Dehydration; F41.9 Anxiety disorder, unspecified; E87.6 Hypokalemia; D75.839 Thrombocytosis, unspecified; K21.9 Gastro-esophageal reflux disease without esophagitis; D50.9 Iron deficiency anemia, unspecified; R63.4 Abnormal weight loss; Z79.899 Other long term (current) drug therapy; Z87.19 Personal history of other diseases of the digestive system
CPT/HCPCS: 36415; 74181; 80048; 80053; 80074; 82607; 82728; 82784; 82785; 82787; 83516; 83540; 83550; 83605; 83615; 83630; 83690; 83735; 84100; 84165; 85025; 85652; 86036; 86037; 86140; 86334; 86480; 86671; 86703; 87040; 87493; 87506; 93005; 97802; 99285; A4216; J2405; J2916

== ENCOUNTER → 2024-10-25 | Outpatient (CLI) | payer BC, MEDICAID, SELFPAY ==
[2024-10-25 10:13] LABS: Hematocrit 26.9 % (37-47); Hemoglobin 8.3 g/dL (12.0-15.0); Immature Granulocytes Count 0.100 X10^3/uL (0.0-0.0); Mean Corp Hgb Conc 30.9 g/dL (32-36); Mean Corpuscular Volume 93.1 fL (81-99); Mean Platelet Vol. 8.2 fl (6.2-12.0); NRBC Flagged by Analyzer 0 % (0-5); Platelet Count 607 K/mm3 (150-450); RBC Distribution Width CV 16.8 % (11.6-14.6); RBC Distribution Width SD 55.1 fl (35.1-43.9); Red Blood Count 2.89 M/mm3 (4.2-5.4); White Blood Count 19.2 K/mm3 (4.4-11.0)
[2024-10-25 11:12] LABS: CRP 14.40 mg/L (0.0-3.0); Vitamin D,25 Hydroxy 15.4 ng/mL (30-100)
[2024-10-25 11:29] LABS: AST(SGOT) 13 U/L (<=31); Alanine Aminotransfer ALT/SGPT 12 U/L (<=34); Albumin, Serum 2.8 g/dL (3.5-5.0); Alkaline Phosphatase 114 U/L (35-104); Bilirubin, Direct < 0.08 mg/dL (0.00-0.30); Globulin 3.0 g/dL (2.2-4.2)
== END | disposition home or self-care (01) ==
PROVIDERS: PCP Pediatrics; Referring Provider Nurse Practitioner Acute Care; Visit Provider Nurse Practitioner Acute Care
DX: K51.011 Ulcerative (chronic) pancolitis with rectal bleeding (principal); D50.0 Iron deficiency anemia secondary to blood loss (chronic); R63.4 Abnormal weight loss; R74.8 Abnormal levels of other serum enzymes; R10.13 Epigastric pain
CPT/HCPCS: 36415; 80076; 82306; 83516; 85025; 86140; 86706; 86787

== ENCOUNTER 2024-10-29 10:22 | Day surgery (SDC) | payer BC, MEDICAID, SELFPAY ==
--- NOTE | 2024-10-27 17:53 | PAT.ANESEVAL ---
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 When Was Last Pacemaker Check QUESTION #4 FULL TEXT: You/Your Family Experience fever (hyperthermia) with Anesthesia Last Oral Intake Last Oral intake: Last Oral Intake NPO since Meds taken in AM with sips of water? 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 Female Yes 10/27/24 09:38 HX of Motion Sickness No 10/27/24 09:38 HX of N/V After Surgery No 10/27/24 09:38 Non-Smoker Yes 10/27/24 09:38 Duration of Surgery greater No 10/27/24 09:38 than 60 minutes Number of Risk Factors 2 10/27/24 09:38 PONV Score Moderate Risk 10/27/24 09:38 Height & Weight Height & Weight: Anesthesia: Height & Weight Height 5 ft 10/19/24 14:20 Respiratory Assessment Respiratory Assessment - insulation cupola operator: Respiratory Tract Infection Hx - insulation cupola operator Hx Respiratory Tract Infection No 10/27/24 09:38 STOP Sleep Apnea STOP Sleep Apnea - insulation cupola operator: STOP Sleep Apnea - insulation cupola operator Hx Hypertension No 10/27/24 09:38 Hx Sleep Apnea No 10/27/24 09:38 CPAP BIPAP Do you snore loudly (louder No 10/27/24 09:38 than talking or can be heard Do you often feel tired/ No 10/27/24 09:38 fatigued/ sleepy during daytime? Has anyone observed you stop No 10/27/24 09:38 breathing during sleep? STOP Results Negative 10/27/24 09:38 QUESTION #5 FULL TEXT : Do you snore loudly (louder than talking or can be heard through closed doors)? 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 Specify any problems Hx of Preganancy in last 3 No 10/27/24 09:38 Months Nurse Filling Out Transfusion MGRITAMIRITH 10/27/24 09:38 & Questions: Date: 10/27/24 10/27/24 09:38 Time: 09:40 10/27/24 09:38 Patient unable to answer at this time (ie. 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: /Reproductive Hx- insulation cupola operator Hx Now No 10/27/24 09:38 Gestational Age (in weeks): EDC: Hx Hx Para Hx Section SAB No 10/27/24 09:38 [facility] Medical History (Updated 10/27/24 @ 09:46 by Bonnie Miller) History of steroid therapy Low iron Easy bruising History of GI bleed History of IBS Gastric reflux Non-smoker History of echocardiogram Kidney stones Laceration, obstetrical, first degree Care and examination of lactating mother (spontaneous vaginal delivery) 40 weeks gestation of Shortness of breath Palpitations Tachycardia Iron deficiency anemia Anxiety and depression Ulcerative colitis Home Medications ?Medication ?Instructions ?Recorded ?Last Taken ?Type citalopram 10 mg tablet 10 mg PO DAILY 10/11/24 10/10/24 History mesalamine 1.2 gram tablet,delayed 4.8 g (4 x 1.2 gram) PO QDAY 8 10/19/24 Unknown Rx release (Lialda) weeks #224 tabs omeprazole 40 mg capsule,delayed 40 mg PO QDAY #90 caps 10/19/24 Unknown Rx release peg 3350-sod sulf,[id number]-elf See Rx Instructions PO .COMPLEX #2 10/19/24 Unknown Rx 178.7-7.3-0.5-1.12-0.9 gram oral mL soln (Suflave) ondansetron HCl 4 mg tablet 4 mg PO Q4H PRN nausea and 10/25/24 Unknown Rx vomiting #5 tabs calcium carbonate 200 mg PO DAILY 10/27/24 Unknown History prednisone 20 mg tablet 40 mg PO DAILY 10/27/24 Unknown History Allergy/AdvReac Type Severity Reaction Status Date / Time No Known Allergies Allergy Verified 10/27/24 09:35 Family History Mother Hypertension Gluten intolerance Father Hypertension Sister Heart murmur Grandmother Heart disease Diabetes Grandfather Hypertension Heart disease Cancer Grandmother Heart disease Hypertension Grandfather Myocardial infarction, Onset Age: 52 Surgical History History of esophagogastroduodenoscopy (EGD) History of colonoscopy Social History housing: house Smoking Status: Never smoker alcohol intake: never substance use type: does not use Audit: Pertinent Findings Pertinent Findings EKG Perinent findings: October 11, 2024. Sinus tachycardia at [address] and T wave abnormality, consider inferolateral ischemia. Echo (EF%) pertinent findings: October 14, 2022. EF of 55% no aortic stenosis noted. Recommendation Anesthesia Recommendation Anesthesia recommendation: OPTIMIZED for anesthesia (Patient needs a repeat twelve-lead EKG. This can be done on day of surgery so that we have a more normal baseline.)
[2024-10-29] VITALS (9 sets, daily range): BP systolic 89–119; BP diastolic 57–70; PULSE 85–140; RESP 16; TEMP 36.1–36.8; O2SAT 97–100; BMI 18.7
[2024-10-29] MEDS: Lactated Ringers 1,000 ML 15 ML IV (10:51)
[2024-10-29 10:55] LABS: Internal QC Validated? YES +Cl - CLEAR BKGD; Pregnancy, Urine Negative Negative; Record Kit Lot#,Urine Preg 0000964736
--- NOTE | 2024-10-29 10:59 | PRE.ANES_ITS ---
ASA Classification* ASA Classification ASA Classification: 3 Assessment & Plan Anesthesia* Anesthesia Assessment Anesthesia Assessment: Discussed sedation and/or anesthesia options, risks, benefits, and alternatives with patient/parents/legal guardian/POA. Questions invited. The patient/parents/legal guardian/POA seems to understand and agrees to proceed with anesthesia plan. Reviewed the physical assessment, medical history, allergy history and patient home medications list prior to surgery/procedure/anesthetic and documented any changes. Performed airway and anesthesia risk assessments. Anesthesia Type Anesthesia Type: MAC (Patient is EKG showed sinus tachycardia and inferior lateral ischemia. This was basically unchanged from EKG of October 2022.) History Source History Obtained from:: Patient and Chart Anesthesia Focused Assessment* Temperature: 98.3 F Pulse Rate: 140 Blood Pressure: 119/69 Respiratory Rate: 16 Pulse Ox: 100 Oxygen Delivery Method: Room Air Airway Assessment Mouth opens: >3 cm Mallampati Score: IV Teeth Condition: Intact Neck Range of motion (ROM): Full ROM Labs Anesthesia Preop lab: CBC WBC 19.2 K/mm3 (4.4-11.0) H 10/25/24 09:44 5 RBC 2.89 M/mm3 (4.2-5.4) L 10/25/24 09:44 10/25/24 Hgb 8.3 g/dL (12.0-15.0) L 10/25/24 09:44 10/25/24 Hct 26.9 % (37-47) L 10/25/24 09:44 10/25/24 Plt Count 607 K/mm3 (150-450) H 10/25/24 09:44 10/25/24 CHEMISTRY Potassium 3.6 mmol/L (3.3-5.1) 10/13/24 05:47 10/13/24 Sodium 136 mmol/L (133-145) 10/13/24 05:47 10/13/24 Magnesium 2.2 mg/dL (1.5-2.2) 10/13/24 05:47 10/13/24 Phosphorus 3.4 mg/dL (2.7-4.5) 10/13/24 05:47 10/13/24 BUN 7 mg/dL (4-19) 10/13/24 05:47 10/13/24 Creatinine 0.45 mg/dL (0.70-1.20) L 10/13/24 05:47 Glucose 135 mg/dL (70-99) H 10/13/24 05:47 10/13/24 COAG Urine Test Negative Negative 10/29/24 10:30 10/29/24 Pre-Assessment Diagnosis/Proposed Procedure Planned Operative Procedure(s): EGD, COLONOSCOPY Anesthesia History 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 When Was Last Pacemaker Check QUESTION #4 FULL TEXT: You/Your Family Experience fever (hyperthermia) with Anesthesia Last Oral Intake Last Oral intake: Last Oral Intake NPO since 08:30 10/29/24 10:47 Meds taken in AM with sips of water? 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 Female Yes 10/27/24 09:38 HX of Motion Sickness No 10/27/24 09:38 HX of N/V After Surgery No 10/27/24 09:38 Non-Smoker Yes 10/27/24 09:38 Duration of Surgery greater No 10/27/24 09:38 than 60 minutes Number of Risk Factors 2 10/27/24 09:38 PONV Score Moderate Risk 10/27/24 09:38 Height & Weight Height & Weight: Anesthesia: Height & Weight Height 5 ft 1 in 10/29/24 10:47 Weight: 45 kg 10/29/24 10:47 Body Mass Index (BMI) 18.7 10/29/24 10:47 Respiratory Assessment Respiratory Assessment - 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 Has anyone observed you stop No 10/27/24 09:38 breathing during sleep? STOP Results Negative 10/27/24 09:38 QUESTION #5 FULL TEXT : Do you snore loudly (louder than talking or can be heard through closed doors)? 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 Specify any problems Hx of Preganancy in last 3 No 10/27/24 09:38 Months Nurse Filling Out Transfusion MGRIFFITH 10/27/24 09:38 & Questions: Date: 10/27/24 10/27/24 09:38 Time: 09:40 10/27/24 09:38 Patient unable to answer at this time (ie. 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 supervisor Hx Now No 10/27/24 09:38 Gestational Age (in weeks): EDC: Hx Hx Para Hx Section SAB No 10/27/24 09:38 Active Medications Active Medications: Current Medications Generic Name Dose Route Start Last Admin Trade Name Freq PRN Reason Stop Dose Admin Lactated Ringer's 1,000 mls @ 15 mls/hr 10/29/24 10:30 10/29/24 10:51 IV 15 mls/hr .Q48H LINDEN Administration PFSH Medical History History of steroid therapy Low iron Easy bruising History of GI bleed History of IBS Gastric reflux Non-smoker History of echocardiogram Kidney stones Laceration, obstetrical, first degree Care and examination of lactating mother (spontaneous vaginal delivery) 40 weeks gestation of Shortness of breath Palpitations Tachycardia Iron deficiency anemia Anxiety and depression Ulcerative colitis Home Medications ?Medication ?Instructions ?Recorded ?Last Taken ?Type citalopram 10 mg tablet 10 mg PO DAILY 10/11/24/0 06/01 History mesalamine 1.2 gram tablet,delayed 4.8 g (4 x 1.2 gram ) PO QDAY 8 10/19/24 Unknown Rx release (Lialda) weeks #224 tabs omeprazole 40 mg capsule,delayed 40 mg PO QDAY #90 cap s 10/19/24 Unknown Rx release peg 3350-sod sulf,[id number] See Rx Instructions PO .COMPLEX #2 10/19/24 Unk nown Rx 178.7-7.3-0.5-1.12-0.9 gram oral mL soln (Suflave) ondansetron HCl 4 mg tablet 4 mg PO Q4H PRN nausea and 10/25/24 Unknown Rx vomiting #5 tabs calcium carbonate 200 mg PO DAILY 10/27/24 Unk nown History prednisone 20 mg tablet 40 mg PO DAILY 10/27/24 Unkn own History Allergy/AdvReac Type Severity Reaction Status Date / Time No Known Allergies Allergy Verified 10/29/24 10:47 Family History Mother Hypertension Gluten intolerance Father Hypertension Sister Heart murmur Grandmother Heart disease Diabetes Grandfather Hypertension Heart disease Cancer Grandmother Heart disease Hypertension Grandfather Myocardial infarction, Onset Age: 52 Surgical History History of esophagogastroduodenoscopy (EGD) History of colonoscopy Social History housing: house Smoking Status: Never smoker alcohol intake: never substance use type: does not use Review of Systems (Anesthesia) ROS Narrative System reviewed and no additional complaints, except as documented.
--- NOTE | 2024-10-29 11:30 | EGD_PTH ---
PATIENT: CARIN BARNES LOC: EN U#:[id number] AGE/SX: 24/F ROOM: RE10/29/[address]: Dr. Raji Love DO : 2000 BED: DIS: 10/29/2024 SPEC #: [id number] RECD: 10/29/24 13:27 STATUS: JELENA ASHLEY #: [id number] DEREK: 10/29/24 11:[address]: Raji Love DEPT: SURGICAL PATHOLOGY RECD BY: Albin Burleson Tissues: A - Duodenum, NOS B - Gastric mucous membrane C - Ileum, NOS D - COLON BIOPSY E - COLON BIOPSY F - Sigmoid colon biopsy G - Rectum, NOS Procedures: Surgery Specimen Level IV HEADER OPERATION: Colonoscopy with biopsies, EGD with biopsy PRE-OP DIAGNOSIS: Epigastric abdominal pain, irritable bowel syndrome, weight loss, ulcerative colitis TISSUE SUBMITTED: A- Duodenum biopsy, B- Gastric body biopsy, C- Terminal ileum biopsy, D- Random colon biopsy, E- Hepatic flexure polyp biopsy, F- Sigmoid colon polyp biopsy, G- Rectal biopsy MICROSCOPIC DIAGNOSIS A. Duodenum, biopsy: - Tad gland hyperplasia, mild acute inflammation. - Negative for increased intraepithelial lymphocytes. B. Gastric body, biopsy: - Oxyntic mucosa with mild chronic inflammation. - Negative for Helicobacter-like organisms (H&E). C. Terminal ileum, biopsy: - No specific pathologic change. D. Colon, random, biopsy: - Active chronic inflammation with crypt distortion - see Comment. - Reactive epithelial change, negative for dysplasia. E. Hepatic flexure, polyp, biopsy: - Inflammatory polyp with marked active inflammation. F. Sigmoid colon, polyp, biopsy: - Inflammatory polyp with active chronic inflammation. G. Rectum, biopsy: - Active chronic inflammation with crypt distortion - see Comment. - Negative for dysplasia. COMMENT: (D, G) The histologic differential diagnosis includes infection, diverticular disease-associated colitis, and inflammatory bowel disease. Recommend correlation with clinical, imaging, and microbiology findings. MICROSCOPIC DESCRIPTION Slides are reviewed. GROSS DESCRIPTION A. Received in fixative is one container labeled with the patient's name and designated Duodenum biopsy. The specimen consists of multiple irregular fragments of light pitts soft tissue that in aggregate measure 1.6 x 0.4 x 0.1 cm. The specimen is totally submitted in one cassette. B. Received in fixative is one container labeled with the patient's name and designated Gastric body biopsy. The specimen consists of one irregular fragment of light pitts soft tissue that measures 0.7 cm. The specimen is totally submitted in one cassette. C. Received in fixative is one container labeled with the patient's name and designated Terminal ileum biopsy. The specimen consists of three irregular fragments of light pitts soft tissue that measure 0.1 to 0.5 cm. The specimen is totally submitted in one cassette. D. Received in fixative is one container labeled with the patient's name and designated Random colon biopsy. The specimen consists of multiple irregular fragments of light pitts soft tissue that in aggregate measure 1.5 x 0.5 x 0.1 cm. The specimen is totally submitted in one cassette. E. Received in fixative is one container labeled with the patient's name and designated Hepatic flexure polyp biopsy. The specimen consists of one irregular fragment of light pitts soft tissue that measures 0.5 cm. The specimen is totally submitted in one cassette. F. Received in fixative is one container labeled with the patient's name and designated Sigmoid colon polyp biopsy. The specimen consists of two irregular fragments of light pitts soft tissue that measure 0.1 and 0.3 cm. The specimen is totally submitted in one cassette. G. Received in fixative is one container labeled with the patient's name and designated Rectal biopsy. The specimen consists of five irregular fragments of light pitts soft tissue that measure 0.1 to 0.2 cm. The specimen is totally submitted in one cassette. ID 10/29/2024 CPT:[id number]
--- NOTE | 2024-10-29 11:31 | PCM.HP.STD ---
HPI - General General Date of Admission: 10/29/24 Date of Service: 10/29/24 Chief Complaint: Abdominal pain and ulcerative colitis HPI Narrative CARIN BARNES, is a 24 F who [facility] 24y/o female with known UC diagnosed via colonoscopy in 2020 with chronic active pancolitis. Currently experiencing 10-20 watery, bloody BMs/day, urgency, nocturnal symptoms, abdominal cramping, and significant 40lb weight loss. Failed outpatient steroids (prednisone started mid September). CT 09/24/2024 revealing for pancolitis with inflammatory stranding and reactive lymphadenopathy. Colonoscopy was last performed at time of initial diagnosis December 2020. She is established with a GI provided in [place] ([facility]), but wishes to transfer her GI care to [place]. Labs are significant for drop in HGB from 11.7 to 8.4 in two days (likely mixed inflammatory, GI loss and Fe deficiency). Hypoalbuminemia (2.1). CRP 50.9, ESR 32. Iron studies consistent with Fe deficiency (Fe 24, Tsat 14%, TIBC 167). Normal GGT and MRCP (no PSC). C. Diff negative and afebrile. Fecal Calprotectin 1160 on 10/07/2024. Currently on Zosyn and IV methylprednisolone 40mg Q8h (total 120mg/day). She has failed to respond to PO Fe TID in the past and was seen by hematology for IV Fe. I recommend IV Fe infusion. - Discharged 10/13/2024 post Fe infusion INTIAL DX: December 2020 - has not had a colonoscopy since then Presenting Symptoms: Blood in stool, urgency and diarrhea PRIOR Treatment: Lialda 4.8g QD then Humira 10/2021 to July 2022 (discontinued when she found out she was ), symptomatically reports she was in remission during CBC: 10/18/2024 WBC 15.95, HGB 8.8, PLT 669 CMP: 10/12/2024 ALP 173 CRP: 10/11/2024 50 VITAMIN B12: 10/11/2024 1128 VITAMIN D: QUANTIFERON: 10/11/2024 pending HBVsAb: 10/11/2024 pending HBVsA10/11/2024 pending HBV Core Total Ab: 10/11/2024 pending Fecal Calprotectin: 10/07/2024 1160 STOOL: 10/12/24 00:25 Stool Stool Lactoferrin - Final POSITIVE 10/12/24 00:25 Stool Enteric Bacteriology - Final NEGATIVE 10/12/24 00:25 Stool Clostridioides difficile (PCR) - Final NEGATIVE SB imagin09/24/2024 CT w/IV contrast * Diffuse wall thickening and edema adjacent pericolonic inflammatory stranding and engorgement vasa recta involving the entirety of the colon and rectum. There are multiple adjacent prominent mesenteric lymph nodes. * No dilation Abdominal aorta and iliac arteries: Atherosclerotic calcifications without aneurysm. - Celiac and SMA: Atherosclerotic calcifications at the origins. COLON: 12/14/2020 chronic pancolitis, no granulomas EGD: 12/14/2020 duodenal biopsies negative MEDS: BIOLOGICS: none presently --- in terms of Biologic planning she has an IUD and no plans for in near future but possible in next few years Humira 10/2021 to July 2022 (discontinued when she found out she was ) STEROIDS: 60mg daily since discharge on 10/13/2024, will drop to 40mg starting 10/20/2024 and taper over 8 weeks During admission 40mg TID (120mg daily) VACCINES COVID: denies any prior vaccines Varicella Vaccine: believes she was vaccinated Shingles Vaccine: denies any prior vaccines Hepatitis B Vaccine: unknown Pneumonia Vaccine: denies any prior vaccines Influenza Vaccine: yes IBD SYMPTOMS: Bowel movements are: decreased to 5x a day (this is an improvement from 10-20x a day) Blood noted in stools: yes Bowel movement urgency present: not as severe Stool incontinence: denies Nocturnal BM's: yes, once a night Abdominal pain: epigastric pain, like heartburn Rectal pain: denies QOL: better ROS: Fever: denies Night Sweats: denies Visual changes: denies Mouth sores: denies Joint pain: yes, elbows in past week Skin rashes/Lesions: denies Weight changes: denies Smoking status: denies NSAID use: denies RECALL COLONOSCOPY NOW [facility] Medical History History of steroid therapy Low iron Easy bruising History of GI bleed History of IBS Gastric reflux Non-smoker History of echocardiogram Kidney stones Laceration, obstetrical, first degree Care and examination of lactating mother (spontaneous vaginal delivery) 40 weeks gestation of Shortness of breath Palpitations Tachycardia Iron deficiency anemia Anxiety and depression Ulcerative colitis Home Medications ?Medication ?Instructions ?Recorded ?Last Taken ?Type citalopram 10 mg tablet 10 mg PO DAILY 10/11/24 10/10/24 History mesalamine 1.2 gram tablet,delayed 4.8 g (4 x 1.2 gram) PO QDAY 8 10/19/24 Unknown Rx release (Lialda) weeks #224 tabs omeprazole 40 mg capsule,delayed 40 mg PO QDAY #90 caps 10/19/24 Unknown Rx release peg 3350-sod sulf,[id number] See Rx Instructions PO .COMPLEX #2 10/19/24 Unknown Rx 178.7-7.3-0.5-1.12-0.9 gram oral mL soln (Suflave) ondansetron HCl 4 mg tablet 4 mg PO Q4H PRN nausea and 10/25/24 Unknown Rx vomiting #5 tabs calcium carbonate 200 mg PO DAILY 10/27/24 Unknown History prednisone 20 mg tablet 40 mg PO DAILY 10/27/24 Unknown History Allergy/AdvReac Type Severity Reaction Status Date / Time No Known Allergies Allergy Verified 10/29/24 10:47 Family History Mother Hypertension Gluten intolerance Father Hypertension Sister Heart murmur Grandmother Heart disease Diabetes Grandfather Hypertension Heart disease Cancer Grandmother Heart disease Hypertension Grandfather Myocardial infarction, Onset Age: 52 Surgical History History of esophagogastroduodenoscopy (EGD) History of colonoscopy Social History housing: house Smoking Status: Never smoker alcohol intake: never substance use type: does not use ROS Constitutional Constitutional: Denies fatigue, fever(s), poor appetite, weight gain or weight loss Gastrointestinal Gastrointestinal: Denies belching, bloating, change in bowel habits, change in stool character, chewing difficulty, coffee ground emesis, constipation, cramping, diarrhea, dyspepsia, dysphagia, early satiety, excessive flatus, fecal incontinence, heartburn, hematemesis, hematochezia, hemorrhoids, loose stools, melena, nausea, odynophagia, rectal bleeding, tenesmus, vomiting or weight changes Vital Signs Vital Signs Vital Signs: 10/29/24 10:47 10/29/24 10:47 10/29/24 11:09 Temperature 98.3 F 98.3 F Temperature Source Temporal Pulse Rate 140 H 140 H Respiratory Rate 16 16 Respiratory Pattern Normal Blood Pressure 119/69 119/69 Blood Pressure Mean 85 Blood Pressure Source Monitor Blood Pressure Position Semi-Fowlers Blood Pressure Location Left Arm Pulse Ox 100 100 Oxygen Delivery Method Room Air Room Air Weight Weight: 99 lb 3.328 oz Body Mass Index (BMI) 18.7 Physical Exam Const alert, oriented x3, no apparent distress and healthy appearing General Appearance: cooperative GI normal to inspection, nondistended, normoactive bowel sounds, soft to palpation, non-tender and non-distended Percussion: normal to percussion Rectal Exam: deferred Results Lab / Micro Data Labs: Laboratory Results - last 24 hr 10/29/24 10:30: Urine Test Negative Assessment & Plan Assessment/Plan (1) Epigastric abdominal pain: (2) IBS (irritable bowel syndrome): (3) Weight loss: (4) Ulcerative colitis: QUALIFIERS: Ulcerative colitis location: ulcerative pancolitis Digestive disease complication type: with rectal bleeding Qualified Code(s): K51.011 - Ulcerative (chronic) pancolitis with rectal bleeding PLAN: Assessment and Plan Assessment and Plan (1) Ulcerative colitis: Status: Acute Qualifiers: Digestive disease complication type: with rectal bleeding Ulcerative colitis location: ulcerative pancolitis Qualified Code(s): K51.011 - Ulcerative (chronic) pancolitis with rectal bleeding Comment: Severe flare (pancolitis, steroid dependent, off biologics since July 2022) Admission 10/11 through 10/13. Dehydration, tachycardia, WBC 20.2, HGB 11.7 -> 8.4, albumin 2.1, CRP 50.9, ALP 211. C. Diff negative. Treated with IV Zosyn, methylpred 40mg TID, and received IV Fe x1. MRCP with no ductal dilation. Discharged on prednisone 60mg QD and Augmentin BID x7 days. Plan: Colonoscopy 10/29/2024 to assess extent/severity of disease Start Prednisone taper tomorrow (40mg daily x2 weeks, decreasing by 10mg every 2 weeks for an 8 week taper) Start Lialda 4.8g daily Complete Augmentin Repeat labs in 1 week (2) Iron deficiency anemia: Status: Acute Qualifiers: Iron deficiency anemia type: chronic blood loss Qualified Code(s): D50.0 - Iron deficiency anemia secondary to blood loss (chronic) Plan: Repeat labs in 1 week Scheduled follow-up with [facility] (3) Weight loss: Status: Acute Comment: 40lbs over the past 6 months Plan: Likely secondary to active disease (4) Epigastric abdominal pain: Status: Acute Comment: Likely secondary to prednisone use Plan: Increase Omeprazole/ 40mg daily EGD 10/29/2024 (5) Elevated alkaline phosphatase level: Status: Acute Comment: 211 -> 173 GGT normal, no biliary dilation on MRCP; likely inflammatory Plan: AMA 1 week Orders: Orders CBC W/Diff, Automated 1 Week D50.9 - Iron deficiency anemia, unspecified, K51.90 - Ulcerative colitis, unspecified, without complications, R10.13 - Epigastric pain, R63.4 - Abnormal weight loss Vitamin D,25 Hydroxy 1 Week D50.9 - Iron deficiency anemia, unspecified, K51.90 - Ulcerative colitis, unspecified, without complications, R10.13 - Epigastric pain, R63.4 - Abnormal weight loss V-Zoster IgG (Immunity) 1 Week D50.9 - Iron deficiency anemia, unspecified, K51.90 - Ulcerative colitis, unspecified, without complications, R10.13 - Epigastric pain, R63.4 - Abnormal weight loss Hepatitis B Surface Antibody 1 Week D50.9 - Iron deficiency anemia, unspecified, K51.90 - Ulcerative colitis, unspecified, without complications, R10.13 - Epigastric pain, R63.4 - Abnormal weight loss EGD 10/29/24 D50.9 - Iron deficiency anemia, unspecified, K51.90 - Ulcerative colitis, unspecified, without complications, R10.13 - Epigastric pain, R63.4 - Abnormal weight loss Colonoscopy Today D50.9 - Iron deficiency anemia, unspecified, K51.90 - Ulcerative colitis, unspecified, without complications, R10.13 - Epigastric pain, R63.4 - Abnormal weight loss Liver Profile 1 Week D50.0 - Iron deficiency anemia secondary to blood loss (chronic), K51.011 - Ulcerative (chronic) pancolitis with rectal bleeding, R10.13 - Epigastric pain, R63.4 - Abnormal weight loss CRP 1 Week D50.0 - Iron deficiency anemia secondary to blood loss (chronic), K51.011 - Ulcerative (chronic) pancolitis with rectal bleeding, R10.13 - Epigastric pain, R63.4 - Abnormal weight loss Anti-Mitochondrial AB 1 Week K51.011 - Ulcerative (chronic) pancolitis with rectal bleeding, R10.13 - Epigastric pain, R63.4 - Abnormal weight loss, R74.8 - Abnormal levels of other serum enzymes Medications: New mesalamine (Lialda) 4.8 grams (4 x 1.2 gram) PO QDAY 8 weeks 224 tabs 0RF omeprazole Take once daily 30 minutes before breakfast every morning 40 mg PO QDAY 90 caps 1RF peg 3350-sod sulf,[id number]-[id number] 178.7-7.3-0.5 gram (Suflave) as directed for split dose bowel prep 2 mL 0RF Discontinued omeprazole Discontinued Reason: Pt no longer taking 20 mg PO DAILY Plan 24y/o female with history of Ulcerative Colitis initially presented in December 2020 with frequent watery, bloody diarrhea. Colonoscopy at that time revealed chronic active pancolitis on random biopsies without granulomas. She was started on oral mesalamine with improved in stool frequency. In September 2021, fecal calprotectin was markedly elevated 1586, prompting initiation of Humira on 10/12/2021. Per prior documentation, she was clinically well; however, fecal calprotectin on 05/28/2022 remained elevated at 2109. She was prescribed a prednisone taper and scheduled for colonoscopy June 2022, which was cancelled after discovering she was . In July 2022, she self-discontinued Humira upon learning of . She reports doing well symptomatically throughout her . She underwent vaginal delivery March 2023. , she returned to baseline of >10 bowel movements daily with frequent nocturnal stools, urgency, abdominal cramping, and bleeding. In April 2024 she tested C. Diff PCR positive/toxin negative and was treated with a 10d course of oral Vancomycin. Fecal calprotectin at that time was 1070. She deneis improvement in diarrhea and reported a 40lb weight loss over the past few months. CT A&P 09/24/2024 demonstrated diffuse colonic and rectal wall edema, adjacent pericolonic inflammatory stranding, engorgement of vasa recta, and multiple prominent lymph nodes; no dilation was noted. On 10/06/2024, she was started on a prednisone taper by her previous GI. She presented to ED on 10/11/2024 with tachycardia secondary to dehydration. Labs revealed WBC 20.2, HGB 11.7, ESR 32, CRP 50.9, ALP 211. She was admitted and started on IV Zosyn 3.375 Q8H and methylprednisone 40mg IV Q8H (120mg daily). MRCP during admisson showed no ductal dilation. By hospital day 2, HGB decreased to 8.4, WBC improved to 10.9, and ALP decreased to 173. Additional labs: Albumin 2.1, B12 1128, Fe 24, Tsat 14%, TIBC 167. C. Diff negative. Capsule endoscopy in January 2021 had shown no source of bleeding. She was discharged on 10/13/2024 after receiving IV Fe infusion with Prednisone 60mg PO daily and Augmentin BID x7 days. Outpatient labs completed 10/18/2024 reveal HGB 8.8, WBC 15.95, PLT 669. She presents today for follow-up post admission with an improvement in stool frequency to 5x a day with an average of only one nocturnal stool. She is continuing to experience bleeding with bowel movements, but overall improved. I have recommended starting prednisone taper starting tomorrow (40mg daily x2 weeks, decreasing by 10mg every 2 weeks for an 8 week taper) and initiation of Lialda 4.8g daily. Colonoscopy has been scheduled for 10/29/2024 with the goal of initiating Skyrizi pending results. She is also continuing to experience epigastric abdominal pain, omeprazole has been increased to 40mg daily and EGD was scheduled for 10/29/2024 in conjunction with colonoscopy. I recommend she schedule follow-up with Hematology at [facility] to arrange ongoing monitoring of Fe deficiency anemia and Fe infusions. Patient Instructions: Decrease Prednisone to 40mg once daily for 2 weeks, then 30mg once daily for 2 weeks, then 20mg once daily for 2 weeks, then 10mg once daily for 2 weeks and then discontinue Start Lialda 4.8g daily Colonoscopy/EGD 10/29/2024 - SuFlave Start Omeprazole 40mg once daily Labs in 1 week (CBC, Hepatic, Schedule follow-up with Hematology at [facility] Initiate [facility] Follow-up in office 7-10d post procedures to review pathology
[2024-10-29] MEDS: Lidocaine 1% (5 ml sdv) 5 ML Vial 4 ML IV (11:34)
[2024-10-29] MEDS: Lactated Ringers 500 ML IV (11:34)
[2024-10-29] MEDS: fentaNYL 100 MCG/2 ML Ampul 50 MCG IV (11:44)
--- NOTE | 2024-10-29 12:03 | PCM.POST.ANE ---
Anesthesia: Postop Eval I Current Vital Signs Temperature: 97 F Pulse Rate: 93 Blood Pressure: 90/59 Respiratory Rate: 16 Pulse Ox: 100 Oxygen Delivery Method: Room Air Assessment Airway patent: Yes Spontaneous unlabored respirations: Yes Mental status: Awake and Calm nausea: No Vomiting: No Anesthesia Complication: No Fluid Hydration Crystalloid volume administer (ml): 500 Total IV fluid infused: 500 Progress Note Anesthesia document: Postop Eval 1 completed: Yes
--- NOTE | 2024-10-29 12:12 | OP.PROVAT_ITS ---
10/29/2024 Felipa Whittington Md Re : Upper GI endoscopy procedure for Radha Avelar Dear Dr. Whittington This procedure was performed on Tuesday, October 29, 2024. My impressions and recommendations are as follows: Impressions : - Esophageal plaques were found, consistent with candidiasis. - Chronic gastritis. Biopsied. - Erythematous duodenopathy. Biopsied. Recommendations : - Discharge patient to home. - Resume previous diet. - Continue present medications. - Await pathology results. My findings are described in the full procedure note, which is enclosed. If I can be of further assistance, please feel free to contact me at . Sincerely, Raji Love, 10/29/2024 12:11:41 PM This report has been signed electronically.
--- NOTE | 2024-10-29 12:12 | OP.EGD_ITS ---
Patient Name: Radha Avelar Procedure Date: 10/29/2024 11:38 AM Date of : 2000 Age: 24 Procedure: Upper GI endoscopy Indications: Epigastric abdominal pain Providers: Raji Love DO Referring MD: Felipa Whittington Md Medicines: Monitored Anesthesia Care Patient Profile: This is a 24 year old female. Refer to note in patient chart for documentation of history and physical. Patient has symptoms of chronic abdominal cramping. Complications: No immediate complications. Procedure: Pre-Anesthesia Assessment: - Prior to the procedure, a History and Physical was performed, and patient medications and allergies were reviewed. The patient is competent. The risks and benefits of the procedure and the sedation options and risks were discussed with the patient. All questions were answered and informed consent was obtained. Patient identification and proposed procedure were verified by the physician in the pre-procedure area. Mental Status Examination: alert and oriented. Airway Examination: normal oropharyngeal airway and neck mobility. Respiratory Examination: clear to auscultation. CV Examination: normal. Prophylactic Antibiotics: The patient does not require prophylactic antibiotics. Prior Anticoagulants: The patient has taken no anticoagulant or antiplatelet agents except for NSAID medication. ASA Grade Assessment: II - A patient with mild systemic disease. After reviewing the risks and benefits, the patient was deemed in satisfactory condition to undergo the procedure. The anesthesia plan was to use monitored anesthesia care (MAC). Immediately prior to administration of medications, the patient was re-assessed for adequacy to receive sedatives. The heart rate, respiratory rate, oxygen saturations, blood pressure, adequacy of pulmonary ventilation, and response to care were monitored throughout the procedure. The physical status of the patient was re-assessed after the procedure. After obtaining informed consent, the endoscope was passed under direct vision. Throughout the procedure, the patient's blood pressure, pulse, and oxygen saturations were monitored continuously. The Colonoscope was introduced through the mouth, and advanced to the third part of the duodenum. Small bowel enteroscopy was deemed necessary. The upper GI endoscopy was accomplished without difficulty. The patient tolerated the procedure well. Scope In: 11:39:35 AM Scope Out: 11:44:48 AM Total Procedure Duration Time 0 hours 5 minutes 13 seconds Findings: Patchy, white plaques were found in the entire esophagus. Patchy mild inflammation characterized by erythema was found in the gastric body. Biopsies were taken with a cold forceps for histology. Verification of patient identification for the specimen was done. Biopsies were taken with a cold forceps for Helicobacter pylori testing. Verification of patient identification for the specimen was done. Estimated blood loss was minimal. Patchy erythematous mucosa without active bleeding and with no stigmata of bleeding was found in the entire duodenum. Biopsies were taken with a cold forceps for histology. Verification of patient identification for the specimen was done. Estimated blood loss was minimal. Impression: - Esophageal plaques were found, consistent with candidiasis. - Chronic gastritis. Biopsied. - Erythematous duodenopathy. Biopsied. Recommendation: - Discharge patient to home. - Resume previous diet. - Continue present medications. - Await pathology results. Procedure Code(s): --- Professional --- 60247, Small intestinal endoscopy, enteroscopy beyond second portion of duodenum, not including ileum; with biopsy, single or multiple CPT copyright 2021 [employer]. All rights reserved. The codes documented in this report are preliminary and upon design technology teacher review may be revised to meet current compliance requirements. Raji Love DO 10/29/2024 12:11:41 PM This report has been signed electronically. Number of Addenda: 0 Note Initiated On: 10/29/2024 11:38 AM
--- NOTE | 2024-10-29 12:16 | POSTOPAN2_ITS ---
Anesthesia Postop Eval I Sum Postop Eval Completion status Anesthesia document: Postop Eval 1 completed: Yes Anesthesia Postop Eval I Summary Anesthesia Postop Eval I Summary: Anesthesia Postop Eval I: Assessment Summary Airway patent Yes 10/29/24 12:03 CORPORATE QUALITY ASSURANCE MANAGER.MDOT Spontaneous unlabored Yes 10/29/24 12:03 CORPORATE QUALITY ASSURANCE MANAGER.MDOT respirations Mental status Awake,Calm 10/29/24 12:03 CORPORATE QUALITY ASSURANCE MANAGER.MDOT nausea No 10/29/24 12:03 CORPORATE QUALITY ASSURANCE MANAGER.MDOT Vomiting No 10/29/24 12:03 CORPORATE QUALITY ASSURANCE MANAGER.MDOT Anesthesia Postop Eval I: Fluid Summary Crystalloid volume administer 500 10/29/24 12:03 CORPORATE QUALITY ASSURANCE MANAGER.MDOT (ml) Colloids volume administered ( ml) Blood Product volume administered (ml) Total IV fluid infused 500 10/29/24 12:03 CORPORATE QUALITY ASSURANCE MANAGER.MDOT Anesthesia Postop Eval I: Summary Notes Anesthesia Complication No 10/29/24 12:03 CORPORATE QUALITY ASSURANCE MANAGER.MDOT Anesthesia Complication Comment: Post-operative progress note Anesthesia: Postop Eval II Evaluation Mental status: Awake and Calm Pain Level: 0 nausea: No Vomiting: No Complications Anesthesia Complication: No
--- NOTE | 2024-10-29 12:16 | PCM.POSTANE2 ---
Anesthesia Postop Eval I Sum Postop Eval Completion status Anesthesia document: Postop Eval 1 completed: Yes Anesthesia Postop Eval I Summary Anesthesia Postop Eval I Summary: Anesthesia Postop Eval I: Assessment Summary Airway patent Yes 10/29/24 12:03 DATA SPECIALIST.MDOT Spontaneous unlabored Yes 10/29/24 12:03 DATA SPECIALIST.MDOT respirations Mental status Awake,Calm 10/29/24 12:03 DATA SPECIALIST.MDOT nausea No 10/29/24 12:03 DATA SPECIALIST.MDOT Vomiting No 10/29/24 12:03 DATA SPECIALIST.MDOT Anesthesia Postop Eval I: Fluid Summary Crystalloid volume administer 500 10/29/24 12:03 DATA SPECIALIST.MDOT (ml) Colloids volume administered ( ml) Blood Product volume administered (ml) Total IV fluid infused 500 10/29/24 12:03 DATA SPECIALIST.MDOT Anesthesia Postop Eval I: Summary Notes Anesthesia Complication No 10/29/24 12:03 DATA SPECIALIST.MDOT Anesthesia Complication Comment: Post-operative progress note Anesthesia: Postop Eval II Evaluation Mental status: Awake and Calm Pain Level: 0 nausea: No Vomiting: No Complications Anesthesia Complication: No
--- NOTE | 2024-10-29 12:19 | OP.COLON_ITS ---
Patient Name: Radha Avelar Procedure Date: 10/29/2024 11:44 AM Date of : 2000 Age: 24 Procedure: Colonoscopy Indications: Chronic ulcerative pancolitis Providers: Raji Love DO Referring MD: Felipa Whittington Md Medicines: Monitored Anesthesia Care Patient Profile: This is a 24 year old female. Refer to note in patient chart for documentation of history and physical. Patient has symptoms of chronic abdominal cramping. Last Colonoscopy: Complications: No immediate complications. Procedure: Pre-Anesthesia Assessment: - Prior to the procedure, a History and Physical was performed, and patient medications and allergies were reviewed. The patient is competent. The risks and benefits of the procedure and the sedation options and risks were discussed with the patient. All questions were answered and informed consent was obtained. Patient identification and proposed procedure were verified by the physician in the pre-procedure area. Mental Status Examination: alert and oriented. Airway Examination: normal oropharyngeal airway and neck mobility. Respiratory Examination: clear to auscultation. CV Examination: normal. Prophylactic Antibiotics: The patient does not require prophylactic antibiotics. Prior Anticoagulants: The patient has taken no anticoagulant or antiplatelet agents except for NSAID medication. ASA Grade Assessment: II - A patient with mild systemic disease. After reviewing the risks and benefits, the patient was deemed in satisfactory condition to undergo the procedure. The anesthesia plan was to use monitored anesthesia care (MAC). Immediately prior to administration of medications, the patient was re-assessed for adequacy to receive sedatives. The heart rate, respiratory rate, oxygen saturations, blood pressure, adequacy of pulmonary ventilation, and response to care were monitored throughout the procedure. The physical status of the patient was re-assessed after the procedure. After I obtained informed consent, the scope was passed under direct vision. Throughout the procedure, the patient's blood pressure, pulse, and oxygen saturations were monitored continuously. The Colonoscope was introduced through the anus and advanced to the terminal ileum. The colonoscopy was performed without difficulty. The patient tolerated the procedure well. The quality of the bowel preparation was adequate. The terminal ileum, ileocecal valve, appendiceal orifice, and rectum were photographed. Scope In: 11:47:05 AM Scope Withdrawal Time 0 hours 8 minutes 22 seconds Scope Out: 12:00:56 PM Total Procedure Duration Time 0 hours 13 minutes 51 seconds Findings: The perianal and digital rectal examinations were normal. Inflammation was found in a continuous and circumferential pattern from the cecum to the terminal ileum. This was graded as Mann Score 3 (severe, with spontaneous bleeding, ulcerations), and when compared to the previous examination, the findings are worsened. Biopsies were taken with a cold forceps for histology. Verification of patient identification for the specimen was done. Estimated blood loss was minimal. Two sessile polyps were found in the sigmoid colon and hepatic flexure. The polyps were 1 to 2 mm in size. These polyps were removed with a jumbo cold forceps. Resection and retrieval were complete. Verification of patient identification for the specimen was done. Estimated blood loss was minimal. Impression: - Severe (Mann Score 3) pancolitis ulcerative colitis, worsened since the last examination. Biopsied. - Two 1 to 2 mm polyps in the sigmoid colon and at the hepatic flexure, removed with a jumbo cold forceps. Resected and retrieved. Recommendation: - Repeat colonoscopy in 1 year for surveillance. - Continue present medications. Procedure Code(s): --- Professional --- 74146, Colonoscopy, flexible; with biopsy, single or multiple CPT copyright 2021 [employer]. All rights reserved. The codes documented in this report are preliminary and upon gandy dancer review may be revised to meet current compliance requirements. Raji Love DO 10/29/2024 12:19:19 PM This report has been signed electronically. Number of Addenda: 0 Note Initiated On: 10/29/2024 11:44 AM
--- NOTE | 2024-10-29 12:19 | OP.PROVAT_ITS ---
10/29/2024 Felipa Whittington Md Re : Colonoscopy procedure for Radha Avelar Dear Dr. Whittington This procedure was performed on Tuesday, October 29, 2024. My impressions and recommendations are as follows: Impressions : - Severe (Mann Score 3) pancolitis ulcerative colitis, worsened since the last examination. Biopsied. - Two 1 to 2 mm polyps in the sigmoid colon and at the hepatic flexure, removed with a jumbo cold forceps. Resected and retrieved. Recommendations : - Repeat colonoscopy in 1 year for surveillance. - Continue present medications. My findings are described in the full procedure note, which is enclosed. If I can be of further assistance, please feel free to contact me at . Sincerely, Raji Love, 10/29/2024 12:19:19 PM This report has been signed electronically.
== END 2024-10-29 13:02 | disposition home or self-care (01) ==
LOC: EN 10:24 → AC 10:25
PROVIDERS: Anesthesiology; PCP Pediatrics; Referring Provider Pediatrics; Visit Provider Internal Medicine Gastroenterology
PROC: 0DJD8ZZ Inspection of Lower Intestinal Tract, Via Natural or Artificial Opening Endoscopic (ICD-10-PCS; CPT 45378; principal; 2024-10-29 11:25)
DX: K51.011 Ulcerative (chronic) pancolitis with rectal bleeding (principal); K29.50 Unspecified chronic gastritis without bleeding; K29.80 Duodenitis without bleeding; K63.5 Polyp of colon; K62.1 Rectal polyp; D50.0 Iron deficiency anemia secondary to blood loss (chronic); K21.9 Gastro-esophageal reflux disease without esophagitis; F41.9 Anxiety disorder, unspecified; F32.A Depression, unspecified; Z79.899 Other long term (current) drug therapy
CPT/HCPCS: 44361; 45380; 81025; 88305; J2405

== ENCOUNTER → 2024-11-16 | Outpatient (CLI) | payer BC, MEDICAID, SELFPAY ==
[2024-11-18 16:09] LABS: Calprotectin, Stool 6650 ug/g (0-120)
== END | disposition home or self-care (01) ==
LOC: LABSPEC 11:03
PROVIDERS: PCP Pediatrics; Referring Provider Nurse Practitioner Acute Care; Visit Provider Nurse Practitioner Acute Care
DX: K51.011 Ulcerative (chronic) pancolitis with rectal bleeding (principal)
CPT/HCPCS: 83993

== ENCOUNTER → 2024-11-30 | Outpatient (CLI) | payer BC, MEDICAID, SELFPAY ==
[2024-11-30 16:07] LABS: Hematocrit 34.5 % (37-47); Hemoglobin 10.3 g/dL (12.0-15.0); Immature Granulocytes Count 0.070 X10^3/uL (0.0-0.0); Mean Corp Hgb Conc 29.9 g/dL (32-36); Mean Corpuscular Volume 96.4 fL (81-99); Mean Platelet Vol. 8.7 fl (6.2-12.0); NRBC Flagged by Analyzer 0 % (0-5); POSITIVE DIFFERENTIAL YES; POSITIVE MORPHOLOGY YES; Platelet Count 462 K/mm3 (150-450); RBC Distribution Width CV 18.8 % (11.6-14.6); RBC Distribution Width SD 67.0 fl (35.1-43.9); Red Blood Count 3.58 M/mm3 (4.2-5.4); White Blood Count 13.2 K/mm3 (4.4-11.0)
[2024-11-30 16:12] LABS: Differential Indicated SCAN CRITERIA MET
[2024-11-30 19:07] LABS: Differential Comment SCANNED
[2024-11-30 19:09] LABS: Anisocytosis 2+
== END | disposition home or self-care (01) ==
LOC: LAB 14:39
PROVIDERS: PCP Pediatrics; Referring Provider Nurse Practitioner Acute Care; Visit Provider Nurse Practitioner Acute Care
DX: D50.0 Iron deficiency anemia secondary to blood loss (chronic) (principal); K51.011 Ulcerative (chronic) pancolitis with rectal bleeding
CPT/HCPCS: 36415; 85025

== ENCOUNTER → 2025-01-27 | Outpatient (CLI) | payer BC, MEDICAID, SELFPAY ==
[2025-01-27 11:19] LABS: Hematocrit 37.6 % (37-47); Hemoglobin 12.0 g/dL (12.0-15.0); Immature Granulocytes Count 0.030 X10^3/uL (0.0-0.0); Mean Corp Hgb Conc 31.9 g/dL (32-36); Mean Corpuscular Volume 90.4 fL (81-99); Mean Platelet Vol. 9.2 fl (6.2-12.0); NRBC Flagged by Analyzer 0 % (0-5); Platelet Count 401 K/mm3 (150-450); RBC Distribution Width CV 14.4 % (11.6-14.6); RBC Distribution Width SD 48.2 fl (35.1-43.9); Red Blood Count 4.16 M/mm3 (4.2-5.4); White Blood Count 9.7 K/mm3 (4.4-11.0)
[2025-01-27 12:39] LABS: AST(SGOT) 70 U/L (<=31); Alanine Aminotransfer ALT/SGPT 38 U/L (<=34); Albumin, Serum 3.8 g/dL (3.5-5.0); Alkaline Phosphatase 194 U/L (35-104); Anion Gap 10 (5-15); BUN 4 mg/dL (4-19); BUN/Creat Ratio 7.6 RATIO (10-20); CRP < 3.00 mg/L (0.0-3.0); Calcium,Total 8.9 mg/dL (7.6-11.0); Carbon Dioxide 26.1 mmol/L (21.0-32.0); Chloride 103 mmol/L (98-108); Globulin 3.0 g/dL (2.2-4.2); Glucose 84 mg/dL (70-99); Potassium 3.6 mmol/L (3.3-5.1); Vitamin D,25 Hydroxy 25.2 ng/mL (30-100)
== END | disposition home or self-care (01) ==
LOC: LAB 10:36
PROVIDERS: PCP Pediatrics; Referring Provider Nurse Practitioner Acute Care; Visit Provider Nurse Practitioner Acute Care
DX: D50.0 Iron deficiency anemia secondary to blood loss (chronic) (principal); K51.011 Ulcerative (chronic) pancolitis with rectal bleeding
CPT/HCPCS: 36415; 80053; 82306; 85025; 86140

== ENCOUNTER → 2025-01-28 | Outpatient (CLI) | payer BC, MEDICAID, SELFPAY ==
[2025-02-02 09:09] LABS: Calprotectin, Stool 357 ug/g (0-120)
== END | disposition home or self-care (01) ==
LOC: LABSPEC 10:24
PROVIDERS: PCP Pediatrics; Referring Provider Nurse Practitioner Acute Care; Visit Provider Nurse Practitioner Acute Care
DX: D50.0 Iron deficiency anemia secondary to blood loss (chronic) (principal); K51.011 Ulcerative (chronic) pancolitis with rectal bleeding
CPT/HCPCS: 83993